=== PATIENT | female | born 1965 | race Caucasian/White ===

== ENCOUNTER 2020-03-14 15:37 | Inpatient (IN) | payer OTHER ==
--- NOTE | 2020-03-14 15:48 | PDOC ---
History of Present Illness - General Chief Complaint: Blood Pressure Problem Stated Complaint: LOW BP Time Seen by Provider: 03/14/20 15:48 - History of Present Illness Initial Comments: 54 YOF h/o lymphoma, ESRD (on dialysis, T/T/S), pemphigus vulgaris, presents from care home for low BP. Per patient, she was scheduled for dialysis today, her bp was measured to 60s, repeated multiple times, unable to go to dialysis. Sent to ER for eval of low bp. Reports some recent bouts of diarrhea and possible fever yesterday. Denies confusion, new blurry vision, dizziness, palpitations, nausea, vomiting, chills, night sweats, blood in stool, blood in urine. Additionally mentions some hemorrhoids which are particularly painful/ distressful, have been occurring for past 2 weeks, unable to find comfortable positioning in bed, asking for relief of any kind. Constitutional: No Weight Change, + Fever, No Chills, No Night Sweats, No Fatigue, No Malaise ENT/Mouth: No Hearing Changes, No Ear Pain, No Nasal Congestion, No Sinus Pain, No Hoarseness, No sore throat, No Rhinorrhea, No Swallowing Difficulty Eyes: No Eye Pain, No Swelling, No Redness, No Foreign Body, No Discharge, No Vision Changes Cardiovascular: No Chest Pain, No SOB, No PND, No Dyspnea on Exertion, No Orthopnea, No Claudication, No Edema, No Palpitations Respiratory: No Cough, No Sputum, No Wheezing, No Smoke Exposure, No Dyspnea Gastrointestinal: No Nausea, No Vomiting, + Diarrhea, No Constipation, + Rectal Pain, No Heartburn, No Anorexia, No Dysphagia, No Hematochezia, No Melena, No Flatulence, No Jaundice Genitourinary: No Dysmenorrhea, No DUB, No Dyspareunia, No Dysuria, No Urinary Frequency, No Hematuria, No Urinary Incontinence, No Urgency, No Flank Pain, No Urinary Flow Changes, No Hesitancy Musculoskeletal: No Arthralgias, No Myalgias, No Joint Swelling, No Joint Stiffness, No Back Pain, No Neck Pain, No Injury History Skin: No Skin Lesions, No Pruritis, No Hair Changes, No Breast/Skin Changes, No Nipple Discharge Neuro: No Weakness, No Numbness, No Paresthesias, No Loss of Consciousness, No Syncope, No Dizziness, No Headache, No Coordination Changes, No Recent Falls Psych: No Anxiety/Panic, No Depression, No Insomnia, No Personality Changes, No Delusions, No Rumination, No SI/HI/AH/VH, No Social Issues, No Memory Changes, No Violence/Abuse Hx., No Eating Concerns Heme/Lymph: No Bruising, No Bleeding, No Transfusions History, No Lymphadenopathy Endocrine: No Polyuria, No Polydipsia, No Temperature Intolerance Past History - Medical History Allergies/Adverse Reactions: Allergies Allergy/AdvReac Type Severity Reaction Status Date / Time midodrine Allergy Verified 03/14/20 15:42 penicillamine Allergy Verified 03/14/20 15:42 piperacillin [From Zosyn] Allergy Verified 03/14/20 15:42 tazobactam [From Zosyn] Allergy Verified 03/14/20 15:42 Home Medications: Ambulatory Orders Acetaminophen [Tylenol] 650 mg PO QID 03/14/20 Diphenhydramine HCl 25 mg PO DAILY 03/14/20 Ergocalciferol (Vitamin D2) [Drisdol] 1,250 mcg PO WEEKLY 03/14/20 Famotidine 10 mg PO DAILY 03/14/20 Ferric Citrate [Auryxia] 210 mg PO TID 03/14/20 Gabapentin [Neurontin] 300 mg PO DAILY 03/14/20 Heparin - 5,000 unit SQ ONCE 03/14/20 Insulin Glargine,Hum.rec.anlog [Lantus Solostar] 10 unit SQ HS 03/14/20 Lidocaine 2% Viscous Oral [Xylocaine 2% Viscous Oral -] 20 ml PO Q4H 03/14/20 Melatonin 5 mg PO HS 03/14/20 Sevelamer Carbonate [Renvela Powder Packet -] 0.8 gm PO TID 03/14/20 Silver Sulfadiazine 1% Top Cr [Silvadene -] 1 applic TP BID 03/14/20 COPD: No Diabetes: Yes Dialysis: Yes (--[facility]) Hypercholesterolemia: Yes - Immunization History Immunization Up to Date: Yes - Psycho-Social/Smoking History Smoking History: Never smoked - Substance Abuse Hx (Audit-C & DAST Scrn) How often the patient has a drink containing alcohol: Never Score: In Men: 4 or > Positive; In Women: 3 or > Positive: 0 Screen Result (Pos requires Nsg. Audit-10AR): Negative In the last yr the pt used illegal drug/Rx for NonMed reason: No Score: Yes response is considered Positive: 0 Screen Result (Positive result requires Nsg. DAST-10): Negative *Physical Exam - Vital Signs Last Vital Signs Temp Pulse Resp BP Pulse Ox 98.2 F 93 H 20 101/66 99 03/14/20 15:42 03/14/20 15:42 03/14/20 15:42 03/14/20 15:42 03/14/20 15:42 ED Treatment Course - LABORATORY CBC & Chemistry Diagram: 03/15/20 05:46 03/15/20 05:46 Medical Decision Making - Medical Decision Making 54 YOF w. hypotension concern for sepsis - BP intermittently between 80s and low 100s - sepsis work up - Patients ECG shows normal sinus rythm, UA revels 3+ leukocyte esterase - patient signed out to night time Discharge - Discharge Information Problems reviewed: Yes Clinical Impression/Diagnosis: ESRD (end stage renal disease) on dialysis UTI (urinary tract infection) Qualifiers: Urinary tract infection type: acute cystitis Hematuria presence: with hematuria Qualified Code(s): N30.01 - Acute cystitis with hematuria Hypotension Qualifiers: Hypotension type: unspecified hypotension type Qualified Code(s): I95.9 - Hypotension, unspecified - Follow up/Referral - Patient Discharge Instructions - Post Discharge Activity
--- OUTSIDE RECORDS SUMMARY | 2020-03-14 16:13 | XMS ---
:1965 Author Organization [facility]IO Care Team Providers Name Role Phone Jessica BENAVIDES, Physician Bonifacio Valdovinos Unavailable Unavailable Luis ERICKSON, Physician Katherine Sheikh Unavailable Unavailkierra Booker Unavailable Unavailable Mayen Unavailable [email or web address] Mayen Unavailable [email or web address] Mayen Unavailable [email or web address] Mayen [facility]available [email or web address] Mayen Unavailable [email or web address] Mayen Unavailable [email or web address] Mayen Unavailable [email or web address] Mayen Unavailable [email or web address] Samuel Unavailable Unavailable Stefano Garcia Unavailable Unavailable Jose Martin BENAVIDES, Physician Unavailable Unavailable MD Dhaval Unavailable Unavailable MD Dhaval Unavailable Unavailable MD Dhaval Unavailable Unavailable MD Dhaval Unavailable Unavailable MD Dhaval Unavailable Unavailable MD Dhaval Unavailable Unavailable MD Dhaval Unavailable Unavailable MD Dhaval Unavailable Unavailable MD Dhaval Unavailable Unavailable MD Dhaval Unavailable Unavailable MD Dhaval Unavailable Unavailable MD Dhaval Unavailable Unavailable MD Dhaval Unavailable Unavailable MD Dhaval Unavailable Unavailable Menges, A Unavailable Unavailable Senisi, J Unavailable Unavailable MD SMILEY Unavailable Unavailable MD SMILEY Unavailable Unavailable MD SMILEY Unavailable Unavailable MD SMILEY Unavailable Unavailable MD SMILEY Unavailable Unavailable MD SMILEY Unavailable Unavailable MD SMILEY Unavailable Unavailable MD SMILEY Unavailable Unavailable MD SMILEY Unavailable Unavailable MD SMILEY Unavailable Unavailable MD SMILEY Unavailable Unavailable MD SMILEY Unavailable Unavailable MD SMILEY Unavailable Unavailable MD SMILEY Unavailable Unavailable MD SMILEY Unavailable Unavailable Jesus Unavailable Unavailable MD Silviano Unavailable Unavailable MD Silviano Unavailable Unavailable MD Silviano Unavailable Unavailable MD Silviano Unavailable Unavailable MD Silviano Unavailable Unavailable MD Silviano Unavailable Unavailable MD Silviano Unavailable Unavailable MD Silviano Unavailable Unavailable MD Silviano Unavailable Unavailable MD Silviano Unavailable Unavailable MD Silviano Unavailable Unavailable MD Silviano Unavailable Unavailable MD Silviano Unavailable Unavailable MD Silviano Unavailable Unavailable MD Silviano Unavailable Unavailable MD Silviano Unavailable Unavailable MD Silviano Unavailable Unavailable MD Silviano Unavailable Unavailable MD Silviano Unavailable Unavailable MD Silviano Unavailable Unavailable MD Silviano Unavailable Unavailable MD Silviano Unavailable Unavailable MD Silviano Unavailable Unavailable ROBERTO, SHI Unavailable Unavailable Slifkin Unavailable Unavailable MD Danielle Unavailable Unavailable MD Danielle Unavailable Unavailable MD Danielle Unavailable Unavailable Bhora Unavailable Unavailable Marija BENAVIDES, Physician E Unavailable Unavailable Renee BENAVIDES, Physician M. Unavailable Unavailable Gabi BENAVIDES, Physician Unavailable Unavailable Alvaro BENAVIDES, Physician Unavailable Unavailable Nalini BENAVIDES, Physician Unavailable Unavailable DARRYL MASTERSON Unavailable Unavailable Haleem Unavailable Unavailable Nadeem Unavailable Unavailable Yenifer BENAVIDES, Physician M Unavailable Unavailable Albert BENAVIDES Unavailable Unavailable RAJPUT, P MD Unavailable Unavailable RAJPUT, P MD Unavailable Unavailable RAJPUT, P MD Unavailable Unavailable RAJPUT, P MD Unavailable Unavailable RAJPUT, P MD Unavailable Unavailable RAJPUT, P MD Unavailable Unavailable RAJPUT, P MD Unavailable Unavailable RAJPUT, P MD Unavailable Unavailable RAJPUT, P MD Unavailable Unavailable RAJPUT, P MD Unavailable Unavailable RAJPUT, P MD Unavailable Unavailable RAJPUT, P MD Unavailable Unavailable RAJPUT, P MD Unavailable Unavailable RAJPUT, P MD Unavailable Unavailable RAJPUT, P MD Unavailable Unavailable RAJPUT, P MD Unavailable Unavailable RAJPUT, P MD Unavailable Unavailable RAJPUT, P MD Unavailable Unavailable Belinskaya Unavailable Unavailable Uche Durant MD Unavailable Unavailable DHUPARMD Unavailable Unavailable DHUPAR, MD Unavailable Unavailable DHUPSTEFFEN, MD Unavailable Unavailable DHUPAR, MD Unavailable Unavailable DHALAN, MD Unavailable Unavailable DHALAN MD Unavailable Unavailable DHALAN MD Unavailable Unavailable DHALAN MD Unavailable Unavailable DHALAN MD Unavailable Unavailable DHALAN MD Unavailable Unavailable DHALAN MD Unavailable Unavailable DHALAN MD Unavailable Unavailable DHALAN MD Unavailable Unavailable HALEY MD Unavailable Unavailable HALEY MD Unavailable Unavailable HALEY MD Unavailable Unavailable DHALAN MD Unavailable Unavailable DHUPSTEFFEN, MD Unavailable Unavailable DHUPSTEFFEN MD Unavailable Unavailable Amadeo Soria MD Unavailable Unavailable Tete MBSHUBHAM, Physician Unavailable Unavailable Tylor BENAVIDES, Physician V Unavailable Unavailable Purvis Unavailable Unavailable EDGAR, DAMIEN-IN Unavailable Unavailable ER Unavailable Unavailable Nadeem Verma MD, ABrian Unavailable Unavailable MD Herman Unavailable Unavailable MD Herman Unavailable Unavailable Amarteifio MD, O. Unavailable Unavailable Tristin BENAVIDES, Physician R. Unavailable Unavailable Chidi EPPS, Physician M Unavailable Unavailable Lawrence Sandoval, Physician Y Unavailable Unavailable Stefano Arriaza MD Unavailable Unavailable Ham Unavailable Unavailable EMERGENCY SERVICE, X Unavailable Unavailable TRISHA PAVON Unavailable Unavailable Ham BENAVIDES, P. Unavailable Unavailable Tack DO, A. Unavailable Unavailable Ritter, D MD Unavailable Unavailable Ritter, D MD Unavailable Unavailable Ritter, D MD Unavailable Unavailable Ritter, D MD Unavailable Unavailable Ritter, D MD Unavailable Unavailable Ritter, D MD Unavailable Unavailable Ritter, D MD Unavailable Unavailable Ritter, D MD Unavailable Unavailable Ritter, D MD Unavailable Unavailable Ritter, D MD Unavailable Unavailable Ritter, D MD Unavailable Unavailable Ritter, D MD Unavailable Unavailable Ritter, D MD Unavailable Unavailable Ritter, D MD Unavailable Unavailable Ritter, D MD Unavailable Unavailable Ritter, D MD Unavailable Unavailable Ritter, D MD Unavailable Unavailable Ritter, D MD Unavailable Unavailable Ritter, D MD Unavailable Unavailable Ritter, D MD Unavailable Unavailable Ritter, D MD Unavailable Unavailable Ritter, D MD Unavailable Unavailable Re-disclosure Warning The records that you are about to access may contain information from federally- assisted alcohol or drug abuse programs. If such information is present, then the following federally mandated warning applies: This information has been disclosed to you from records protected by federal confidentiality rules (42 CFR part 2). The federal rules prohibit you from making any further disclosure of this information unless further disclosure is expressly permitted by the written consent of the person to whom it pertains or as otherwise permitted by 42 CFR part 2. A general authorization for the release of medical or other information is NOT sufficient for this purpose. The Federal rules restrict any use of the information to criminally investigate or prosecute any alcohol or drug abuse patient.The records that you are about to access may contain highly sensitive health information, the redisclosure of which is protected by Article 27-F of the [facility] Public Health law. If you continue you may haveaccess to information: Regarding HIV / AIDS; Provided by facilities licensed or operated by the [facility] Office of Mental Health; or Provided by the [facility] Office for People With Developmental Disabilities. If such information is present, then the following [facility] mandated warning applies: This information has been disclosed to you from confidential records which are protected by state law. State law prohibits you from making any further disclosure of this information without the specific written consent of the person to whom it pertains, or as otherwise permitted by law. Any unauthorized further disclosure in violation of state law may result in a fine or long term sentence or both. A general authorization for the release of medical or other information is NOT sufficient authorization for further disclosure. Allergies and Adverse Reactions Type Description Substance Reaction Status Data Source(s ) Drug allergy Zosyn in dextrose Zosyn in dextrose SIGMACARE (iso-osm) (iso-osm) ([facility]) Drug allergy penicillamine penicillamine SIGMAC ARE ([facility]) Drug allergy midodrine midodrine SIGMACARE ([facility]) Drug allergy piperacillin piperacillin Anaphylaxis [facility] Drug allergy tazobactam tazobactam Anaphylaxis [facility] Drug allergy midodrine midodrine Rash [facility] Drug allergy Penicillins Penicillins Unknown [facility] Drug allergy No Known Drug No Known Drug [facility] miesha Allergies Allergies [facility] Drug allergy No Known Allergies No Known Allergies [facility] Drug allergy Zosyn [facility]yn [facility] Drug allergy penicillins penicillins anaphylaxis to [facility] No Known Allergies No Known Allergies [facility] Drug allergy midodrine midodrine sunburned [place] feeling from [facility] head to toe [facility] Drug allergy Zosyn Zosyn [facility] Drug allergy penicillins penicillins [facility] No Known Allergies No Known Allergies [facility] Primary Care Drug allergy midodrine midodrine rash sunburned [facility] Primary head to toe Care 1 MIDODRINE MIDODRINE NEXTGEN ([facility]) Food allergy No Known Food No Known Food [facility] miesha Allergies Allergies [facility] Encounters Encounter Providers Location Date Indications Data Source(s ) Inpatient Attender: 6 WEST-5 EAST 02/28/2020 SIGMABETH Mayen 04:00:00 PM ([facility] EDT [facility]) Patient admitted. Inpatient Attender: LIBRADO, 02/05/2020 PEMPHIGUS [facility] OLIVERAttender: ROBERTO, 11:58:00 PM EDT [facility] ERICAttender: ZELALEM, 02/28/2020 Corpor ation RONALDAttender: EDGAR, 03:00:00 PM EDT DAMIEN-INAdmitter: DAMIEN HERNÁNDEZ-INReferrer: BEVERLY HERNÁNDEZIN PEMPHIGUS VULGARIS Patient admitted. Emergency Attender: EDGAR, 02/05/2020 08:48:00 TRANSFER [facility] DAMIEN-INAttender: EMERGENCY PM EDT Health Care SERVICE, XAdmitter: [facility] EMERGENCY SERVICE, X TRANSFER Emergency Attender: Shayy Price 02/05/2020 12:34:51 PM [facility] MDAttender: EDT - 02/05/2020 Juliette Quinn ERAdmitter: Shayy Price 07:09:00 PM T [facility] MD Patient discharged. Outpatient Attender: Gaby 12/19/2019 09:30:00 AM [facility] EDT - 12/19/2019 11:59:00 Primary Care PM EDT Patient discharged. Outpatient Attender: Eugene 08/22/2019 02:00:00 PM [facility] ([facility] SenisiReferrer: Eugene [facility] Outpatient Attender: Vahe Tejada 08/15/2019 02:47:00 PM [facility]) Outpatient Attender: Eugene Louis 08/09/2019 11:35:00 AM [facility]) Outpatient Attender: Eugene 08/08/2019 11:00:00 AM [facility] ([facility] SenisiReferrer: Eugene Agarwal [facility]) S Attender: Physician Valdovinos 06/03/2019 11:27:00 AM [facility] Bonifacio Lopez MDAdmitter: BRAD Qunin Physician Bonifacio Lopez MD [facility] Admission cancelled. Disregard status an d admitted date. Outpatient Attender: Physician Bonifacio 06/03/2019 10:03:00 AM [facility] Bonifacio Lopez MDAdmitter: EST - 06/03/2019 Nathalia Brothers Physician Bonifacio Lopez 11:59:00 PM [facility] MD Patient discharged. Outpatient Attender: Physician Bonifacio 05/06/2019 10:38:47 AM [facility] Bonifaciodeborah Lopez MDAdmitter: EST - 05/06/2019 Nathalia Brothers Physician Bonifacio Lopez 11:59:00 PM [facility] MD Patient discharged. Inpatient Attender: Physician Kamron Epstein 04/17/2019 12 :17:00 [facility] MBBSAttender: ERAttender: Santos PM EDT - 1 06/27/2018 Kalaheo Kai Deluna MDAdmitter: Physician 01:15:00 PM [facility] MBBSConsultant: Darien Villanueva MDConsultant: YVONNE RAJPUT MDConsultant: GITA DE LEON MDConsultant: JABARI REIS MDConsultant: Gustavo Puentes MDConsultant: Carol Ann Sutton MDConsultant: Haile Santos MDConsultant: Jackie AbreueConsultant: Vipul BerenzonConsultant: Vipul Berenzon MDConsultant: Halima OrrilloConsultant: Physician Laith Duran MDConsultant: Physician Cuong Crow MDConsultant: Nato GuevaraConsultant: Physician Luis Gayle MDConsultant: Physician Bonifacio Lopez MD Patient discharged. Outpatient Attender: Physician Bonifacio 04/16/2019 09:29:58 AM [facility] Bonifaciodeborah Lopez MDAdmitter: EDT - 04/16/2019 Kalaheo Brothers Physician Bonifacio Lopez 11:59:00 PM [facility] MD Patient discharged. Inpatient Attender: Physician Nghia John 04/04/2019 02:2 5:00 [facility] MDAttender: Danie PM EDT - 04/07/2019 Nathaliaserenity PhamAttender: Kamron 04:13:00 PM [facility] Carleen Mendoza: ERAdmitter: Physician Nghia John MDConsultant: Wilton Shore MDConsultant: JABARI REIS MDConsultant: Physician Bonifacio Lopez MDConsultant: Physician Oziel Dutton MDConsultant: Physician Nghia John MDConsultant: Physician Luis Gayle MDConsultant: Physician Manuelito Murillo DOConsultant: Stephon Story DOConsultant: Nato ColoradooraConsultant: Halima Jimenez-CutilloConsultant: Danie Finneyya Patient discharged. Inpatient Attender: Physician Katherine 03/25/2019 09:22:00 A M [facility] Luis FRIENDBSAttender: Maria Guadalupe [facility] - 03/28/2019 Nathalia Salmeron: 04:00:00 PM [facility] ERAdmitter: Physician Katherine FRIENDBSConsultant: YVONNE RAJPUT MDConsultant: Wilton Shore MDConsultant: JABARI REIS MDConsultant: Physician Bonifacio Lopez MDConsultant: Shilo Arriaza MDConsultant: Physician Gaby Philippe MDConsultant: Physician Luis Gayle MD Patient discharged. Outpatient Attender: Wilton Shore 03/21/2019 08:49:52 AM [facility] MDAdmitter: Wilton Shore T - 03/21/2019 Nathalia Quinn MD 11:59:00 PM [facility] Patient discharged. Outpatient Attender: Physician 02/11/2019 10:42:00 AM [facility] [address] T - 02/28/2019 Juliette Quinn MDAdmitter: Physician 11:59:00 PM [facility] [address] MD Patient discharged. Outpatient Attender: Michaelle 01/24/2019 01:19:00 PM [facility] ([facility]) Outpatient Attender: Michaelle 01/18/2019 02:30:00 PM [facility] ([facility] SamuelReferrer: ED Medical [facility]) Outpatient Attender: Viviana 01/18/2019 12:00:00 AM [facility] ([facility] AlasioReferrer: EDT Medical - [facility] Michaelle [facility]) Inpatient Attender: Physician 10/19/2018 12:08:00 PM [facility] Suellen Bravo EDT - 10/22/2018 Juliette Quinn M.D.Attender: 03:00:00 PM EDT [facility] Physician Katherine FRIENDBSAttender: Manuelito Soria MDAttender: ERAdmitter: Physician Katherine ERICKSONConsultant: Gustavo Puentes MDConsultant: Physician Cuong Crow MDConsultant: Jackie AbreueConsultant: Rivera CaspermConsultant: Physician Rivera Ashley MDConsultant: Physician Ricky Snider MD Outpatient Attender: Physician 10/09/2018 09:41:[address] [facility] [facility] - 10/10/2018 Juliette Quinn MDAdmitter: Physician 09:32:00 PM EDT [facility] Yenifer MDConsultant: Yifan Silver Jr., MDConsultant: Yifan Silver Emergency Attender: Manuelito 10/08/2018 10:20:00 AM [facility] Yang MDAttender: EDT - 10/08/2018 Nathalia Quinn ERAdmitter: Manuelito 08:22:00 PM [facility] Yang MDConsultant: Physician Jadon Street MD Outpatient Attender: Physician TENISHA 07/26/2018 03:53:00 PM [facility] Cuong Crow EST - 07/26/2018 Bobo Quinn MDAdmitter: Physician 11:59:59 PM [facility] Cuong Crow MD Outpatient Attender: Halima 03/06/2018 12:26:54 PM [facility] - 03/06/2018 Nathalia Quinn er: Halima 11:59:59 PM ED[facility] Out[facility] Attender: Eugene 06/03/2015 03:00:00 PM [facility] ([facility] SenisiReferrer: EST Medical [facility] Immunizations Vaccine Date Status Description Data Source(s) Pneumococcal conjugate 03/28/2019 completed pneumococcal [facility] - PCV 13 04:00:00 PM 13-valent conjugate [facility] vaccine [facility] influenza virus 05/12/2014 completed influenza virus [facility] - vaccine, inactivated 12:00:00 AM vaccine, inactivated 1 [facility] Result Comment: Unknown Unit of Measure: 0.5 influenza virus 03/12/2013 12:00:00 completed influenza virus [facility] - vaccine, inactivated AM EDT vaccine, inactivated [facility] tetanus/diphth/pertu 01/29/2013 12:00:00 completed tetanus/dipht h/pertu [facility] - ss (Tdap) adult/adol AM EDT ss (Tdap) [facility] adult/adol4 [facility] [place] Result Comment: Unknown Unit of Measure: cc haemophilus b 01/29/2013 12:00:00 completed haemophilus b [facility] - conjugate (PRP-T) AM EDT conjugate (PRP-T) [facility] vaccine vaccine3 [facility] [place] Result Comment: Unknown Unit of Measure: cc tetanus/diphth/pertuss 12/04/2012 completed tetanus/diphth/per tuss [place] (Tdap) adult/adol 12:00:00 AM (Tdap) adult/adol5 Heal th - EDT [facility] Result Comment: Unknown Unit of Measure: pneumococcal 05/08/2012 completed pneumococcal [facility] 23-polyvalent vaccine 12:00:00 AM EST 23-polyvalent va ccine [facility] influenza virus 05/08/2012 completed influenza virus [facility] vaccine, inactivated 12:00:00 AM EST vaccine, inactiva ted2 - [facility] Result Comment: Unknown Unit of Measure: Medications Medication Brand Start Product Dose Route Administrative Pharmacy [facility] Indications Reaction Description Data Name Date Form Instructions Instructions Source(s) Silvadene silver 03/05/ Silvaden e 1 SIGMACARE (silver sulfad 2020 ed % topical (Rege ncy sulfadiazin iazine 08:30: cream Ext ended e) 1 % 10 53 AM Care topical MG/ML EDT Center) cream Topica l Cream [Still dene] Silvadene silver 03/05/ complet Silvaden e 1 SIGMACARE (silver sulfad 2020 ed % topical (Rege ncy sulfadiazin iazine 08:28: cream Ext ended e) 1 % 10 44 AM Care topical MG/ML EDT Center) cream Topica l Cream [Still dene] Silvadene silver 03/05/ complet Silvaden e 1 SIGMACARE (silver sulfad 2020 ed % topical (Rege ncy sulfadiazin iazine 08:27: cream Ext ended e) 1 % 10 08 AM Care topical MG/ML EDT Center) cream Topica l Cream [Still dene] Silvadene silver 03/05/ complet Silvaden e 1 SIGMACARE (silver sulfad 2020 ed % topical (Rege ncy sulfadiazin iazine 08:25: cream Ext ended e) 1 % 10 29 AM Care topical MG/ML EDT Center) cream Topica l Cream [Still dene] Silvadene silver 03/05/ complet Silvaden e 1 SIGMACARE (silver sulfad 2020 ed % topical (Rege ncy sulfadiazin iazine 08:22: cream Ext ended e) 1 % 10 59 AM Care topical MG/ML EDT Center) cream Topica l Cream [Still dene] Silvadene silver complet Silvaden e 1 SIGMACARE (silver sulfad 2020 ed % topical (Rege ncy sulfadiazin iazine 08:20: cream Ext ended e) 1 % 10 47 AM Care topical MG/ML EDT Center) cream Topica l Cream [Still dene] Silvadene silver 03/05/ complet Silvaden e 1 SIGMACARE (silver sulfad 2020 ed % topical (Rege ncy sulfadiazin iazine 08:09: cream Ext ended e) 1 % 10 51 AM Care topical MG/ML EDT Center) cream Topica l Cream [Still dene] Miralax POLYET 03/04/ complet Miralax 17 SIGMACARE (polyethyle HYLENE 2020 ed gram/dose ( [facility] ne glycol GLYCOL 09:36: oral powder Extended 3350) 17 3350 00 AM Care gram/dose 91772 EDT Center) oral powder MG Powder for Oral Soluti on [[place] ax] melatonin 5 Melato 03/04/ complet melato trisha 5 SIGMACARE mg capsule trisha 5 2020 ed mg capsule (R egency MG 09:04: Extended Oral 25 AM Care Capsul EDT Center) e Neurontin gabape Neuronti n SIGMACARE (gabapentin ntin 2020 ed 300 mg (Regen cy ) 300 mg 300 MG 06:34: capsule Exte nded capsule Oral 13 AM Care Capsul EDT Center) e [Neuro ntin] prednisone Predni prednis one 5 SIGMACARE 5 mg tablet sone 5 2019 ed mg tablet ( [facility] MG 03:00: Extended Oral 00 PM Care Tablet EDT Center) Preparation 815967 Prepar ation SIGMACARE H 27822 2019 ed H 0.25 %-14 (Regenc y (phenyleph- 07:29: %-74.9 % Ex tended min 17 AM ointment Care oil-petrola EDT Center) waqar) 0.25 %-14 %-74.9 % ointment Mepilex 525563 Mepilex 4" X SIGMACARE (foam 82740 2019 ed 4" bandage (Regenc y bandage) 4" 03:24: Extend ed X 4" 54 PM Care bandage EDT Center) Mepilex 110232 Mepilex 4" X SIGMACARE (foam 80941 2019 ed 4" bandage (Regenc y bandage) 4" 03:21: Extend ed X 4" 59 PM Care bandage EDT Center) Mepilex 218361 Mepilex 4" X SIGMACARE (foam 78515 2019 ed 4" bandage (Reg[facility] y bandage) 4" 03:20: Extend ed X 4" 39 PM Care bandage EDT Center) Mepilex 792272 complet Mepilex 4" X SIGMACARE (foam 52832 2020 ed 4" bandage (Regenc y bandage) 4" 12:37: Extend ed X 4" 09 PM Care bandage EDT Center) Mepilex 750881 Mepilex 4" X SIGMACARE (foam 95129 2020 ed 4" bandage (Regenc y bandage) 4" 12:30: Extend ed X 4" 39 PM Care bandage EDT Center) Mepilex 973737 complet Mepilex 4" X SIGMACARE (foam 95559 2020 ed 4" bandage (Regenc y bandage) 4" 11:53: Extend ed X 4" 52 AM Care bandage EDT Center) Auryxia 579710 Auryxia 21 0 SIGMACARE (ferric 33281 2019 ed mg iron ([facility] citrate) 09:26: tablet Extende d 210 mg iron 17 AM Care tablet EDT Center) Drisdol 526150 Drisdol SI GMACARE (ergocalcif 03297 2019 ed 1,250 mcg (R egency polina 08:33: (50,000 Extended (vitamin 36 AM unit) Care d2)) 1,250 EDT capsule Center ) mcg (50,000 unit) capsule Lidocaine 871116 Lidocain e SIGMACARE Viscous 31895 2019 ed Viscous 2 % (Reg ency (lidocaine 08:31: mucosal Exte nded hcl) 2 % 12 AM solution Care mucosal EDT Center) solution sevelamer sevela sevelame r SIGMACARE carbonate bala 2019 ed carbonate (Rege ncy 0.8 gram carbon 08:31: 0.8 gram Ext ended oral powder ate 12 AM oral powder Care packet 800 MG EDT packet Center) Powder for Oral Suspen sol [Renve la] prednisone Predni prednis one SIGMACARE 10 mg sone 2019 ed 10 mg tablet (Regen cy tablet 10 MG 08:31: Extended Oral 12 AM Care Tablet EDT Center) melatonin 3 Melato melato trisha 3 SIGMACARE mg tablet trisha 3 2019 ed mg tablet (Reg ency MG 08:31: Extended Oral 12 AM Care Tablet EDT Center) heparin hepari heparin SI GMACARE (porcine) n 2019 ed (porcine) (Rege ncy 5,000 sodium 08:31: 5,000 Extended unit/mL , 11 AM unit/mL Care injection porcin EDT injection Efren ter) solution e 5000 solution UNT/ML Inject able Soluti on Lantus 3 ML Lantus SIGMAC ARE Solostar Insuli 2019 ed Solostar (Rege ncy U-100 n 08:23: U-100 Extended Insulin Glargi 38 AM Insulin 100 Ca re (insulin ne 100 EDT unit/mL ([address]) glargine) UNT/ML mL) 100 unit/mL Pen subcutaneous (3 mL) Inject pen subcutaneou or s pen [Lantu s] Lactobacill [id number] Lactob acillu SIGMACARE [id number] 2019 ed s ([facility] acidoph-L.b 08:23: acidoph-L.b u Extended ulgaricus 1 38 AM lgaricus 1 C are million EDT million cell Cent er) cell tablet tablet famotidine Famoti famotid ine SIGMACARE 10 mg dine 2019 ed 10 mg tablet (Regen cy tablet 10 MG 08:22: Extended Oral 22 AM Care Tablet EDT Center) calcitriol Calcit calcitr iol SIGMACARE 0.25 mcg riol 2019 ed 0.25 mcg (Regenc y capsule 0.0002 08:22: capsule Exten ded 5 MG 21 AM Care Oral EDT Center) Capsul e diphenhydra Diphen diphen hydram SIGMACARE mine 25 mg hydram 2019 ed ine 25 mg (R egency capsule ine 08:22: capsule Extende d Hydroc 21 AM Care hlorid EDT Center) e 25 MG Oral Capsul e acetaminoph Acetam acetam inophe SIGMACARE en 325 mg inophe 2019 ed n 325 mg (Reg ency tablet n 325 08:18: tablet Extended MG 30 AM Care Oral EDT Center) Tablet Dilaudid Dilaud 0.5 UNK active Dilaudid [facility] ([facility] (Hy 2020 mg (Hydromorpho r Cou nty 11:21: ne) Health 06 PM Injection Care EDT 0.5 mg IVPB Corporat io n Medication administered onsite Dilaudid Dilaudid 02/05/2020 0.5 UNK active Dil audid [place] (Hy (Hy 10:21:10 PM mg (Hydromorphon e) County EDT Injection 0.5 mg [facility] Care [employer] Medication administered onsite 0.9% NaCl 0.9% NaCl 02/05/2020 1000 mL UNK active 0.9% [place] IV IV 10:21:10 PM EDT NaCl IV C ounty Health 1000 mL Care [facility] Medication administered onsite Methotrexate methotrexate 02/05/2020 2.5 Oral [place]uv[place] 2.5 MG Oral 2.5 mg oral 04:32:00 PM mg 2.5 mg, = 1 tab, Oral, Monday Health - Tablet tablet EDT [place] methotrexate Brother s 2.5 mg oral Medical tablet [place] Furosemide 80 FUROSEMIDE take 1 RP NEXTGEN MG Oral Tablet tablet (Ca remoun 80 mg 80 mg by oral t Med ical route - Mt every [place] [facility]) This may be an active medication. No end date is available. Start date above may not reflect actual date the medication was s tarted. carvedilol 12.5 MG CARVEDILOL take 1 tablet by RP NEXTGEN ([facility] Oral Tablet 12.5 mg oral route Medical - Or [place] 12.5 mg every day with [facility]) food This may be an active medication. No end date is available. Start date above may not reflect actual date the medication was s tarted. gabapentin 300 MG NEURONTIN take 2 capsule RP NEXTGEN ([facility] Oral Capsule by oral route [facility] [Neurontin[facility] 300 mg every evening as [facility]) 300 mg needed This may be an active medication. No end date is available. Start date above may not reflect actual date the medication was s tarted. 10 billion cell 10 1 capsule by mouth RP NEXTGEN ([facility] billion cell every day [place] dical - [facility]) This may be an active medication. No end date is available. Start date above may not reflect actual date the medication was s tarted. Albuterol albuterol 2.5 04/17/2019 5.0 Nebulized Nuvance 0.83 MG/ML mg/3 mL 02:40:00 PM mg inhalation 5 mg, = 6 mL, NEB, q6hr (specified start), as needed for wheezing, PRN Health - Inhalant (0.083%) EDT [place] Solution inhalation Broth [facility] albuterol 2.5 solution Ky dical mg/3 mL Center (0.083%) inhalation solution Ventolin HFA [id number] 04/17/2019 2.0 Inhalation Nuvance 90 mcg/inh 02:37:00 PM = 2 puf f(s), INH, QID, as needed for wheezing Health - inhalation EDT [place] aerosol [facility] Albuterol albuterol 2.5 04/07/2019 Daniella 5.0 Inhalation Nuvance 0.83 MG/ML mg/3 mL 12:40:00 PM uti mg 5 mg, = 6 mL, INH, q6hr, # 60 EA, 0 Refill(s), as needed for wheezing, Pharmacy: [id number], 6 mL INH q6hr,PRN:as needed for wheezing Health - Inhalant (0.083%) EDT on [place] Solution inhalation Broth ers albuterol 2.5 solution Me dical mg/3 mL Center (0.083%) inhalation solution Ventolin HFA [id number] 04/07/2019 Inh 2.0 Inhalation Nuvance 90 mcg/inh 12:40:00 PM yosvany = 2 puff(s), INH, QID, # 1 EA, 1 Refill(s), as needed for wheezing, Pharmacy: [facility] #[id number], 2 puff(s) INH QID,PRN:as needed for wheezing Health - inhalation EDT r [place] aerosol [facility] Augmentin 875 [id number] 03/28/2019 1.0 Oral [place]uvance mg-125 mg 01:47:00 PM amoxicillin (as trihydrate), 1 tab, Oral, q12hr (specified start), X 5 day(s), # 10 tab, 0 Refill(s), Pharmacy: [facility] #[id number], 1 tab Oral q12hr (specified start),x5 day(s) Health - oral tablet EDT [facility] 3 ML Victoza 18 03/25/2019 0.6 Subcutaneous [place] liraglutide 6 mg/3 mL 01:20:00 PM mg 0.6 mg, Subcutaneous, Daily, Has not started yet Health - MG/ML Pen subcutaneous EDT [facility] Medical mg/3 mL Center subcutaneous solution albuterol [id number] 03/25/2019 2.0 Inhalation [place] Inhaler 01:19:00 PM 2 puff(s), INH, QID, as needed for wheezing, PRN Health - EDT [facility] Levofloxacin Levaquin 750 10/22/2018 750. Oral Nuvance 750 MG Oral mg oral 10:48:00 AM 0 mg 750 mg, = 1 tab, Oral, q24hr (specified start), X 5 day(s), # 5 tab, 0 Refill(s), Pharmacy: [facility] [id number], 1 tab Oral q24hr (specified start),x5 day(s) Health - Tablet tablet EDT [place] Levaquin 750 Brother s mg oral Medical tablet [place] Furosemide 40 Lasix 40 mg 10/22/2018 40.0 Oral Nuvance MG Oral oral tablet 10:48:00 AM mg 40 mg, = 1 tab, Oral, BID, # 60 tab, 0 Refill(s), Pharmacy: [facility] [id number], 1 tab Oral BID,x30 day(s) Health - Tablet Lasix EDT [place] 40 mg oral [facility] albuterol [facility] [id number] 10/22/2018 Aer 2.0 Inhalation Nuvance free 90 10:48:00 AM kristal = 2 puff(s), INH, QID, # 18 gm, 0 Refill(s), as needed for wheezing, Pharmacy: [facility] [id number], 2 puff(s) INH QID,PRN:as needed for wheezing Health - mcg/inh EDT [facility] clonazepam [id number] 10/19/2018 0.5 Oral N uvance 04:10:00 PM mg 0.5 mg, Oral, BID, as needed for anxiety Health - EDT [facility] simvastatin [id number] 10/19/2018 10.0 Oral Nuvance 04:09:00 PM mg 10 mg, Oral, QHS, hasn't started medication yet Health - EDT [facility] Probiotic [id number] 10/19/2018 1.0 Oral Nu adam Formula 04:08:00 PM 1 cap, Ora l, Daily Health - EDT [facility] carvedilol [id number] 10/19/2018 12.5 Oral N uvance 04:06:00 PM mg 12.5 mg, Oral , BID Health - EDT [facility] Simvastatin simvastatin 10/09/2018 10.0 Oral Nuvance 10 MG Oral 10 mg oral 10:48:00 AM mg 10 mg, = 1 tab, Oral, Once a day (at bedtime), # 30 tab, 0 Refill(s) Health - Tablet tablet EDT [place] simvastatin [place] 10 mg oral Medical tablet Center Auryxia 210 [id number] 10/09/2018 630. Oral Nuvance mg oral 10:46:00 AM 0 mg 630 mg, Or al, With meals, 0 Refill(s) Health - tablet EDT [facility] azithromycin [id number] 10/09/2018 1.0 Oral Nuvance 250 mg oral 10:43:00 AM = 1 packet(s), Oral, Daily, # 6 tab, 0 Refill(s), as directed on package labeling Health - tablet EDT [facility] predniSONE 10 [id number] 10/09/2018 10.0 Oral Nuvance mg oral 10:43:00 AM mg 10 mg, = 1 tab, Oral, Daily, # 7 tab, 0 Refill(s) Health - tablet EDT [facility] gabapentin [id number] 03/27/2018 600. Oral N uvance 02:26:00 PM 0 mg 600 mg, Oral, QHS, 0 Refill(s) Health - EDT [facility] MiraLax [id number] 10/11/2017 Ora 17.0 Oral Nuva nce 02:45:00 PM l g 17 gm, = 1 EA , Oral, Daily, 0 Refill(s) Health - EDT [facility] Bio-K+ [id number] 10/11/2017 Cap 2.0 Oral Nuvan ce 02:45:00 PM sul 2 cap, Oral, Daily, 0 Refill(s) Health - EDT e [facility] DuoNeb [id number] 10/11/2017 Daniella 3.0 Nebulized Nuvance 02:45:00 PM uti mL inhalation 3 mL, NEB, QID, 0 Refill(s), as needed for shortness of breath or wheezing, PRN Health - EDT on [facility] felicity n calcium calcium 10/04/20172000 Oral Nuv ance acetate 667 acetate 667 09:56:00 AM .0 2,001 mg, = 3 cap, Oral, With meals Health - MG Oral mg oral EDT mg [place] Capsule capsule [place] calcium Medical acetate 667 Center mg oral capsule carvedilol 25 carvedilol 25 10/04/2017 25.0 Oral Nuvance MG Oral mg oral 09:56:00 AM mg 25 mg, = 1 tab, Oral, BID Health - Tablet tablet EDT [place] carvedilol 25 [facility] Medical tablet [place] calcium calcium 10/04/2017 667. Oral Nuv ance acetate 667 acetate 667 09:56:00 AM 0 mg 667 mg, = 1 cap, Oral, with snacks Health - MG Oral mg oral EDT [place] Capsule capsule [place] calcium Medical acetate 667 Center mg oral capsule mupirocin 2% [id number] 10/04/2017 1.0 Topical [place] topical cream 09:56:00 AM 1 ap p, TOP, TID, apply to left leg Health - EDT [facility] Vitamin B12 [id number] 09/02/2013 Inj 1000 Intramuscular Nuvance 04:48:00 PM ect .0 1,000 mcg, IM , q30day, 0 Refill(s) Health - EDT abl ug [place] e [facility] Famotidine 10 Famotidine co [place] MG Oral [10 mg mp r County Tablet Tablet]: 10 le Health Famotidine MG Oral Q10AM te Care [10 mg d Corporatio Tablet]: 10 n MG Oral Q10AM Prednisone 5 Prednisone [5 co [place] MG Oral mg Tablet]: 5 mp r C ounty Tablet MG Oral DAILY le Heal th Prednisone [5 te Care mg Tablet]: 5 d Corpor atio MG Oral DAILY n gabapentin gabapentin 999 oral co gabapent in [place] MG mp r County le Health te Care d Corporatio n Prednisone 10 Prednisone co [place] MG Oral [10 mg mp r County Tablet Tablet]: 10 le Health Prednisone MG Oral Q10AM te Care [10 mg d Corporatio Tablet]: 10 n MG Oral Q10AM ferric Auryxia co [place] citrate 1000 (Ferric mp r Co unty MG Oral Citrate) [210 le Hea lth Tablet mg iron te Care Auryxia Tablet]: 3 d Corpor atio (Ferric Tablet Oral 3 n Citrate) [210 TIMES A DAY mg iron Tablet]: 3 Tablet Oral 3 TIMES A DAY Insulin Lantus co [facility] Glargine 100 (Insulin mp r C ounty UNT/ML Glargine) le Health Injectable [100 unit/mL te C are Solution Unit]: 10 d Corpor atio Lantus Unit n (Insulin Subcutaneous Glargine) Q10PM [100 unit/mL Unit]: 10 Unit Subcutaneous Q10PM Lidocaine Lidocaine co [facility] heste Hydrochloride Viscous mp r C ounty 20 MG/ML (Lidocaine le Healt h Mucous HCl) [2 % te Care Membrane Cup]: 15 ML d Myles oratio Topical Oral Q4HPRN n Solution PRN Pain Lidocaine Viscous (Lidocaine HCl) [2 % Cup]: 15 ML Oral Q4HPRN PRN Pain Acetaminophen Acetaminophen co [place] 325 MG Oral [325 mg mp r Cou nty Tablet Tablet]: 650 le Healt h Acetaminophen MG Oral te Car e [325 mg Q6HPRN PRN d Corpor atio Tablet]: 650 Pain n MG Oral Q6HPRN PRN Pain Diphenhydrami Diphenhydrami co [facility] ne ne HCl [25 mg mp r Coun ty Hydrochloride Capsule]: 25 le Health 25 MG Oral MG Oral Q10PM te Care Capsule d Corporatio Diphenhydrami n ne HCl [25 mg Capsule]: 25 MG Oral Q10PM sevelamer Sevelamer co [facility] heste carbonate Carbonate mp r Cou nty 26.7 MG/ML [0.8 gram le Heal Oral Packet]: 800 te Care Suspension MG Oral TIDAC d Corporatio Sevelamer n Carbonate [0.8 gram Packet]: 800 MG Oral TIDAC Freeze Dried [id number] co Kev [place] Acidophilus mp r County (Lactobacillu le Health s te Care acidophilus) d Corpora felicity [Capsule]: 1 n Capsule Oral Q10AM Calcitriol Calcitriol co E[place] 0.61232 MG [0.25 mcg mp r Co unty Oral Capsule Capsule]: le He alth Calcitriol 0.25 MCG Oral te Care [0.25 mcg Q10AM d Corporati o Capsule]: n 0.25 MCG Oral Q10AM heparin Heparin co [place] e sodium, (Porcine) mp r Count y porcine 5000 [5,000 le Healt h UNT/ML unit/mL te Care Injectable Vial]: 5000 d Co rporatio Solution Unit n Heparin Subcutaneous (Porcine) 10A-6P [5,000 unit/mL Vial]: 5000 Unit Subcutaneous 10A-6P Melatonin 3 Melatonin [3 co [place] MG Oral mg Tablet]: 3 mp r C ounty Tablet MG Oral Q6PM le Healt h Melatonin [3 te Care mg Tablet]: 3 d Corpor atio MG Oral Q6PM n VITAMIN D2 co [place] e (DRISDOL) mp r County [id number] UNIT le Health (Free Text te Care Medication) d Corporat io [[id number] UNIT n Capsule]: 27084 Unit Oral DIRECTED Insurance Providers Payer name Policy type Policy ID Covered Covered democrat's Policy P / Coverage democrat ID relationship to Goyal Inf ormation type goyal MEDICARE [id number] SP [id number] [id number] AARP 17 [id number] Self [id number] Medicare Part 2 [id number] Self [id number] Medicare Part 18 [id number] Self [id number] A AARP Other [id number] Self [id number] 211 Medicare Part Medicare [id number] Self [id number] Part B Medicare Part Medicare [id number] Self [id number] A Part A UNK UNK UNK UNK [id number] COMM [id number] Self [id number] MCARE [id number] Self [id number] COMM [id number] Self [id number] MCARE [id number] Self [id number] T02 [facility] [place] [place] AARP [id number] [id number] [facility] [place] [facility] [place] [id number] 1 [id number] Part B Par Providers Problems, Conditions, and Diagnoses Code Display Name Description Problem Type Effective Data Sour ce(s) Dates R50.9 Fever, unspecified Fever, unspecified Diagnosis 0 SIGMACARE 12:00:00 AM ([facility]) L13.9 Bullous disorder, Bullous disorder, Diagnosis 03/05/2020 SIGMACARE unspecified unspecified 12:00:00 AM ([facility]) F51.01 Primary insomnia Primary insomnia Diagnosis 03/04/2020 SI GMACARE 12:00:00 AM ([facility]) K64.8 Other hemorrhoids Other hemorrhoids Diagnosis 03/02/2020 SIGMACARE 12:00:00 AM ([facility]) L89.152 Pressure ulcer of Pressure ulcer of Diagnosis 02/29/2020 SIGMACARE sacral region, stage sacral region, 12:00:00 AM ([facility] 2 stage 2 EDT [facility] [place]) S51.802A Unspecified open Unspecified open Diagnosis 02/29/2020 SI GMACARE wound of left wound of left 12:00:00 AM (Regenc y forearm, initial forearm, initial EDT Ex tended Care encounter encounter Center) S21.001A Unspecified open Unspecified open Diagnosis 02/29/2020 SI GMACARE wound of right wound of right 12:00:00 AM (Rege ncy breast, initial breast, initial EDT Exte nded Care encounter encounter Center) D63.8 Anemia in other ANEMIA IN OTHER Diagnosis 02/28/2020 [place] chronic diseases CHRONIC DISEASES 03:00:00 PM [email or web address] classified elsewhere CLASSIFIED EDT Care [facility] E87.5 Hyperkalemia HYPERKALEMIA Diagnosis 02/28/[address] [facility] r 03:00:00 PM [facility] [employer] [facility] [place] [employer] Z87.891 Personal history of PERSONAL HISTORY OF Diagnosis [place] nicotine dependence NICOTINE DEPENDENCE 03:00:0 0 PM [facility] [employer] [facility] [place] [employer] Z89.411 Acquired absence of ACQUIRED ABSENCE OF Diagnosis [place] right great toe RIGHT GREAT TOE 03:00:00 PM Cou [facility] [employer] [facility] [place] [employer] Z89.412 Acquired absence of ACQUIRED ABSENCE OF Diagnosis [place] left great toe LEFT GREAT TOE 03:00:00 PM Count [employer] [facility] [place] [employer] 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 Diagnosis [place] dialysis DIALYSIS 03:00:00 PM [facility] [employer] [place] E11.22 Type 2 diabetes TYPE 2 DIABETES Diagnosis 02/28/2020 [place] mellitus with MELLITUS W DIABETIC 03:00:00 PM [email or web address] diabetic chronic CHRONIC KIDNEY EDT Care kidney disease DISEASE Corporatio n A04.72 Enterocolitis due to ENTEROCOLITIS D/T Diagnosis 02/28/20 20 [place] Clostridium CLOSTRIDIUM 03:00:00 PM [facility] th difficile, not DIFFICILE, NOT SPCF EDT C are specified as [employer] recurrent D61.818 Other pancytopenia OTHER PANCYTOPENIA Diagnosis 0 [place] 03:00:00 PM [facility] [employer] Z94.84 Stem cells STEM CELLS Diagnosis 02/28/2020 [place] transplant status TRANSPLANT STATUS 03:00:00 PM [facility] 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 02/28/2020 [facility] lymphoma, B-CELL LYMPHOMA, 03:00:00 PM [facility] unspecified site UNSPECIFIED SITE EDT Ca re Corporation I12.0 Hypertensive chronic HYP CHR KIDNEY Diagnosis 02/28/2020 [place] kidney disease with DISEASE W STAGE 5 03:00:00 PM [facility] stage 5 chronic CHR KIDNEY DISEASE EDT C are kidney disease or OR ESRD Corpora tion end stage renal disease N18.6 End stage renal END STAGE RENAL Diagnosis 02/28/2020 [place] disease DISEASE 03:00:00 PM [facility] [place] [employer] L89.153 Pressure ulcer of Pressure ulcer of Diagnosis 02/28/2020 SIGMACARE sacral region, stage sacral region, 12:00:00 AM ([facility] 3 stage 3 T [facility]) J20.9 Acute bronchitis, Acute bronchitis, Diagnosis 02/28/2020 SIGMACARE unspecified unspecified 12:00:00 AM ([facility]) E66.9 Obesity, unspecified Obesity, Diagnosis 02/28/2020 SIGM ACARE unspecified 12:00:00 AM ([facility]) I10 Essential (primary) Essential (primary) Diagnosis 020 SIGMACARE hypertension hypertension 12:00:00 AM ([facility]) 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 Diffuse large Diagnosis 02/28/2020 S IGMACARE lymphoma, B-cell lymphoma, 12:00:00 AM ([facility] unspecified site unspecified site EDT Ex [facility]) D50.9 Iron deficiency Iron deficiency Diagnosis 02/28/2020 SIGM ACARE anemia, unspecified anemia, unspecified 12:00:0 0 AM ([facility]) F41.9 Anxiety disorder, Anxiety disorder, Diagnosis 02/28/2020 SIGMACARE unspecified unspecified 12:00:00 AM ([facility]) S41.001A Unspecified open Unspecified open Diagnosis 02/28/2020 SI GMACARE wound of right wound of right 12:00:00 AM (Rege ncy shoulder, initial shoulder, initial EDT Extended Care encounter encounter Center) S41.002A Unspecified open Unspecified open Diagnosis 02/28/2020 SI GMACARE wound of left wound of left 12:00:00 AM (Regenc y shoulder, initial shoulder, initial EDT Extended Care encounter encounter Center) E55.9 Vitamin D Vitamin D Diagnosis 02/28/2020 SIGMACARE deficiency, deficiency, 12:00:00 AM ([facility] unspecified unspecified EDT Extended Car e [place]) K13.79 Other lesions of Other lesions of Diagnosis 02/28/2020 SI GMACARE oral mucosa oral mucosa 12:00:00 AM ([facility]) N25.0 Renal osteodystrophy Renal Diagnosis 02/28/2020 SIGM ACARE osteodystrophy 12:00:00 AM ([facility]) G47.00 Insomnia, Insomnia, Diagnosis 02/28/2020 SIGMACARE unspecified unspecified 12:00:00 AM ([facility]) I82.401 Acute embolism and Acute embolism and Diagnosis 0 SIGMACARE thrombosis of thombos unsp deep 12:00:00 AM (Re gency unspecified deep veins of r low EDT Exte nded Care veins of right lower extrem Cent er) extremity E11.9 Type 2 diabetes Type 2 diabetes Diagnosis 02/28/2020 SIGM ACARE mellitus without mellitus without 12:00:00 AM ( [facility] complications complications T Extended [facility]) E63.9 Nutritional Nutritional Diagnosis 02/28/2020 SIGMACARE deficiency, deficiency, 12:00:00 AM ([facility] unspecified unspecified EDT Extended Car e [place]) K21.9 Gastro-esophageal Gastro-esophageal Diagnosis 02/28/2020 SIGMACARE reflux disease reflux disease 12:00:00 AM (Rege ncy without esophagitis without esophagitis EDT [facility] [place]) D63.1 Anemia in chronic Anemia in chronic Diagnosis 02/28/2020 SIGMACARE kidney disease kidney disease 12:00:00 AM ([facility] [place]) L29.9 Pruritus, Pruritus, Diagnosis 02/28/2020 SIGMACARE unspecified unspecified 12:00:00 AM ([facility]) E83.51 Hypocalcemia Hypocalcemia Diagnosis 02/28/2020 SIGMACARE 12:00:00 AM ([facility]) Z00.00 Encounter for Encntr for general Diagnosis 02/28/2020 SIG MACARE general adult adult medical exam 12:00:00 AM (R egency medical examination w/o abnormal EDT Ext ended Care without abnormal findings Center) findings M62.81 Muscle weakness Muscle weakness Diagnosis 02/28/2020 SIGM ACARE (generalized) (generalized) 12:00:[address] ([facility]) R52 Pain, unspecified Pain, unspecified Diagnosis 02/28/2020 SIGMACARE 12:00:00 AM ([facility]) Z11.1 Encounter for Encounter for Diagnosis 02/28/2020 SIGMACAR E screening for screening for 12:00:00 AM ([facility] respiratory respiratory T Extended Car e tuberculosis tuberculosis Center) N18.6 End stage renal End stage renal Diagnosis 02/28/2020 SIGM ACARE disease disease 12:00:00 AM ([facility]) 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 J90 Pleural effusion, Pleural effusion, Diagnosis 10/16/2019 [facility] not elsewhere not elsewhere 03:30:54 AM - [facility] r classified classified [facility] H26.8 Other specified Posterior Diagnosis 08/22/2019 NEXT[facility] cataract subcapsular 02:00:00 PM ([facility] cataract EST Medical - [facility] ) J94.2 Hemothorax Hemothorax Diagnosis 05/06/2019 [facility] 10:38:00 AM - [facility] N18.6 End stage renal Pleural effusion, Diagnosis 04/17/2019 [facility] disease not elsewhere 03:38:00 PM - [place] classified [facility] R06.02 Shortness of breath Shortness of breath Diagnosis 019 [facility] 07:23:00 PM - [place] [facility] J91.8 Pleural effusion in Pleural effusion in Diagnosis 019 [facility] other conditions other conditions 08:49:00 AM - [place] classified elsewhere classified [facility] N18.9 Chronic kidney Chronic renal Diagnosis 01/18/2019 [facility] disease, unspecified failure, 02:30:00 PM (Ca remount unspecified CKD EDT Medical - Or stage [facility]) Z85.72 Personal history of Personal history of Diagnosis [facility] non-Hodgkin lymphoma 02:30:00 PM ([facility] lymphomas EDT Medical - [facility]) Z01.419 Encounter for Encounter for Diagnosis 01/18/2019 [facility] gynecological general 02:30:00 PM ([facility] examination gynecological exam EDT Medic al - Mt (general) (routine) without abnormal [facility] without abnormal finding Group PC ) findings 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 Diagnosis 10/19/2018 [facility] failure failure 12:08:00 PM - [place] [facility] I42.9 Cardiomyopathy, Cardiomyopathy, Diagnosis 07/26/2018 [facility] unspecified unspecified 03:53:00 PM - [facility] Z12.31 Encounter for Encounter for Diagnosis 03/06/2018 [facility] screening mammogram screening mammogram 12:26:5 4 PM - [place] for malignant for malignant [facility] neoplasm of breast neoplasm of breast [facility] E11.349 Type 2 diabetes Diabetic Diagnosis 06/03/2015 NEXTGEN mellitus with severe retinopathy 03:00:00 PM (C [facility] nonproliferative associated with EST Med ical - Mt diabetic retinopathy type 2 diabetes [facility] without macular mellitus, without Gr oup PC) edema macular edema, with severe nonproliferative retinopathy Surgeries/Procedures Procedure Description Date Indications Data Source(s) Vats Video Assisted 04/22/2019 [facility] - Thoroscopy (Right) 03:49:00 PM EST [facility] auto-populated from documented surgical case Thoracotomy (None) 04/22/2019 03:49:00 PM EST [facility] auto-populated from documented surgical case Bronchoscopy Flexible (None) 04/22/2019 03:49:00 PM ES T [facility] auto-populated from documented surgical case PREV VISIT NEW AGE 40-64 PREV VISIT NEW 01/18/2019 12:00:00 NEXTGEN ([facility] AGE 40-64 AM EDT Medical [facility]) Cervical or vaginal Ca 01/18/2019 12:00:00 N EXTGEN ([facility] cancer screening; pelvic screen;pelvic/br AM EDT Medical [facility] and clinical breast east exam [facility] PC) examination Repair Pseudoaneurysm 10/10/2018 06:11:00 [facility] - (Right) PM EDT [facility] auto-populated from documented surgical case Colonoscopy - SN (None) 03/28/2018 10:51:00 AM EDT [facility] auto-populated from documented surgical case RIGHT arm AV fistula 09/09/2015 12:00:00 [facility] AM EDT [facility] permacath LEFT upper 08/18/2015 12:00:00 [facility] chest currently used for AM [facility] EYE EXAM NEW PATIENT EYE EXAM NEW 06/03/2015 12:00:00 NEXTGEN ([facility] PATIENT AM [facility] Medical - [facility]) Tubal Ligation 1996 [facility] Stem Cell Transplant [facility] 11/28 [facility] right groin stent [facility] Andreea Cath on right [facility] - chest wall 02/2010 [facility] Lymph node removed X2 [facility] 02/2010 and 07/2011 [facility]aton right [facility] Amputation of hallux (procedure) [facility] left Results ID Date Data Source [id number] 02/28/2020 07:45:00 AM EDT [facility] [id number] Corporation Name Value Range Interpretation Description Data Sup porting Code Source(s) Document(s ) Leukocytes 20.0 k/mm3 4.8-10 <td> 02/28/2020 [facility] [#/volume] in .8 07:45</td><td> [facility] Blood by k/mm3 WBC [facility] Automated </td><td><[employer] count raph styleCode="Bold "> 20.0 H </paragraph>
(4.8-10.8) k/mm3 </td> Erythrocytes 2.71 m/mm3 3.90-5 <td> 02/28/2020 [facility] [#/volume] in .20 07:45</td><td> [facility] Blood m/mm3 RBC Health Care </td><td><[employer] raph styleCode="Bold "> 2.71 L </paragraph>
(3.90-5.20) m/mm3 </td> Erythrocyte 109.6 fL 81.0-9 <td> 02/28/2020 [facility] mean 9.0 fL 07:45</td><td> [facility] corpuscular MCV [facility] Care volume </td><td><[employer] [Entitic raph volume] by styleCode="Bold Automated "> count 109.6 H </paragraph>
(81.0-99.0) fL </td> Hemoglobin 9.6 g/dL 12.0-1 <td> 02/28/2020 [facility] [Mass/volume] 6.0 07:45</td><td> [facility] in Blood g/dL HGB Health Care </td><td><[employer] raph styleCode="Bold "> 9.6 L </paragraph>
(12.0-16.0) g/dL </td> Erythrocyte 35.4 pg 27.0-3 <td> 02/28/2020 [facility] mean 1.5 pg 07:45</td><td> [facility] corpuscular MCH [facility] hemoglobin </td><td><astrid [employer] [Entitic mass] raph by Automated styleCode="Bold count "> 35.4 H </paragraph>
(27.0-31.5) pg </td> Hematocrit 29.7 % 37.0-4 <td> 02/28/2020 [facility] [Volume 7.0 % 07:45</td><td> County Fraction] of HCT Health Care Blood by </td><td><[employer] Automated raph count styleCode="Bold "> 29.7 L </paragraph>
(37.0-47.0) % </td> Erythrocyte 32.3 % 32.0-3 <td> 02/28/2020 [facility] mean 6.0 % 07:45</td><td> [facility] corpuscular MCHC </td><td> Health Care hemoglobin Corporation concentration 32.3 [Mass/volume] in Blood from
Fetus by (32.0-36.0) % Automated </td> count Platelet mean 10.6 fL 9.8-12 <td> 02/28/[address] [facility] r volume .8 fL 07:45</td><td> [facility] [Entitic MPV </td><td> Health Care volume] in Corporation Blood by 10.6 Automated count
(9.8-12.8) fL </td> Erythrocyte 20.8 % 11.5-1 <td> 02/28/2020 [facility] distribution 4.5 % 07:45</td><td> [facility] width [Entitic RDW Health Care volume] by </td><td><[employer] Automated raph count styleCode="Bold "> 20.8 H </paragraph>
(11.5-14.5) % </td> Platelets 212 k/mm3 160-41 <td> 02/28/2020 [facility] [#/volume] in 0 07:45</td><td> County Blood by k/mm3 Platelet Count Health Care Automated </td><td> Corporation count 212
(160-410) k/mm3 </td> Lymphocytes 11.7 % 17.0-5 <td> 02/27/2020 [facility] [#/volume] in 0.0 % 06:00</td><td> [facility] Blood by Lymphocytes Health Care Automated </td><td><astrid [employer] count raph styleCode="Bold "> 11.7 L </paragraph>
(17.0-50.0) % </td> Monocytes/Leuk 6.7 % 0.0-11 <td> 02/27/2020 [facility] er ocytes [Pure .0 % 06:00</td><td> [facility] number Monocytes. Health Care fraction] in </td><td> [facility] Blood by Automated 6.7 count
(0.0-11.0) % </td> Basophils+Eosi 0.5 % 0.0-5. <td> 02/27/2020 [facility] er nophils+Monocy 0 % 06:00</td><td> [facility] feliciano [#/volume] Eosinophils Health Care in Blood by </td><td> [employer] Automated count 0.5
(0.0-5.0) % </td> Basophils 0.3 % 0.0-2. <td> 02/27/2020 [facility] [#/volume] in 0 % 06:00</td><td> [facility] Blood by Basophils Health Care Automated </td><td> Corporation count 0.3
(0.0-2.0) % </td> Immature 3.6 % 0.0-0. <td> 02/27/2020 [facility] granulocytes/1 5 % 06:00</td><td> [facility] 00 leukocytes IG% Health Care in Blood by </td><td><[employer] Automated raph count styleCode="Bold "> 3.6 H </paragraph>
(0.0-0.5) %
The IG fraction represents metamyelocytes, myelocytes and/or
promyelocytes and is only reported as part of the automated
differential when found at a percentage of less than 6.
If higher than 6%, a manual differential will be performed.

(0.0-0.5) % </td> Neutrophils 77.2 % 40.0-7 <td> 02/27/2020 [facility] [#] in Body 6.0 % 06:00</td><td> [facility] fluid by Neutrophils Health Care Manual count </td><td><[employer] raph styleCode="Bold "> 77.2 H </paragraph>
(40.0-76.0) % </td> Atypical 5.0 % % <td> 02/18/2020 [facility] Lymphs 15:13</td><td> [facility] Atypical Lymphs Health Care </td><td><[employer] graph styleCode="Bold "> 5.0 * AB </paragraph>
% </td> Anisocytosis Slight <td> 02/27/2020 [facility] [Presence] in 06:00</td><td> [facility] Blood by Light Anisocytosis Health Care microscopy </td><td> Corporation Slight
</td> Myelocytes 3.0 % % <td> 02/24/2020 [facility] [#/volume] in 06:00</td><td> [facility] Blood by Myelocyte Health Care Manual count </td><td><[employer] raph styleCode="Bold "> 3.0 * AB </paragraph>
% </td> Metamyelocytes 2.0 % % <td> 02/24/2020 [facility] er [#/volume] in 06:00</td><td> [facility] Blood by Metamyelocytes Health Care Manual count </td><td><[employer] raph styleCode="Bold "> 2.0 * AB </paragraph>
% </td> Basophilic Occasional <td> 02/22/2020 [facility] stippling 05:51</td><td> County [Presence] in Basophilic Health Care Blood by Light [employer] Corporation microscopy </td><td> Occasional
</td> Ovalocytes Few <td> 02/21/2020 [facility] [Presence] in 08:03</td><td> [facility] Blood by Light Ovalocytes Health Care microscopy </td><td> Corporation Few
</td> Macrocytes Slight <td> 02/27/2020 [facility] [Presence] in 06:00</td><td> [facility] Blood by Light Macrocytic Health Care microscopy </td><td> [employer] Slight
</td> Polychromasia Slight <td> 02/24/[address] [facility] r [Presence] in 06:00</td><td> [facility] Blood by Light Polychromasia Health Care microscopy </td><td> [employer] Slight
</td> Poikilocytosis Slight <td> 02/27/2020 [facility] er [Presence] in 06:00</td><td> [facility] Blood by Light Poikilocytosis Health Car e microscopy </td><td> [employer] Slight
</td> Schistocytes RARE <td> 02/21/2020 [facility] [Presence] in 08:03</td><td> [facility] Blood by Light Schistocytes Health Care microscopy </td><td> [employer] RARE
</td> Potassium 4.3 mEq/L 3.5-5. <td> 02/28/2020 [facility] [Moles/volume] 1 07:45</td><td> [facility] in Serum or mEq/L Potassium-Serum Health Care Plasma </td><td> [employer] 4.3
(3.5-5.1) mEq/L </td> Glucose 90 mg/dL 70-105 <td> 02/28/2020 [facility] [Mass/volume] mg/dL 07:45</td><td> [facility] in Blood Glucose-Serum Health Care </td><td> [employer] 90
(70-105) mg/dL </td> Sodium 135 mEq/L 135-14 <td> 02/28/2020 [facility] [Moles/volume] 5 07:45</td><td> County in Serum or mEq/L Sodium-Serum Health Care Plasma </td><td> [employer] 135
(135-145) mEq/L </td> Carbon 29 mEq/L 22-30 <td> 02/28/2020 [facility] dioxide, total mEq/L 07:45</td><td> County [Moles/volume] CO2 </td><td> Health Car e in Serum or Corporation Plasma 29
(22-30) mEq/L </td> Urea nitrogen 47 mg/dL 6-22 <td> 02/28/[facility] [Mass/volume] mg/dL 07:45</td><td> [facility] in Blood BUN Health Care </td><td><[employer] raph styleCode="Bold "> 47 H </paragraph>
(6-22) mg/dL </td> Chloride 97 mEq/L 98-107 <td> 02/28/2020 [facility] [Moles/volume] mEq/L 07:45</td><td> [facility] in Serum or Chloride Health Care Plasma </td><td><[employer] raph styleCode="Bold "> 97 L </paragraph>
(98-107) mEq/L </td> Creatinine 4.82 mg/dL 0.57-1 <td> 02/28/2020 [facility] [Moles/volume] .11 07:45</td><td> [facility] in Serum or mg/dL Creatinine. Health Care Plasma </td><td><[employer] raph styleCode="Bold "> 4.82 H </paragraph>
(0.57-1.11) mg/dL </td> Alanine 15 U/L 6-55 <td> 02/27/2020 [facility] aminotransfera U/L 06:00</td><td> [facility] se [Enzymatic ALT (SGPT) Health Care activity/volum </td><td> Corporation e] in Serum or Plasma 15
(6-55) U/L </td> Aspartate 18 U/L 4-35 <td> 02/27/2020 [facility] aminotransfera U/L 06:00</td><td> County se [Enzymatic AST (SGOT) Health Care activity/volum </td><td> Corporation e] in Serum or Plasma 18
(4-35) U/L </td> Bilirubin.tota 0.6 mg/dL 0.2-1. <td> 02/27/2020 [facility] er l 3 06:00</td><td> [facility] [Mass/volume] mg/dL Bilirubin - Health Care in Blood Total [employer] </td><td> 0.6
(0.2-1.3) mg/dL </td> Proteins - 6.2 g/dL 6.4-8. <td> 02/27/2020 [facility] Total 3 g/dL 06:00</td><td> [facility] Proteins - Health Care Total Bio[employer] </td><td><astrid raph styleCode="Bold "> 6.2 L </paragraph>
(6.4-8.3) g/dL </td> Calcium 8.7 mg/dL 8.6-10 <td> 02/28/2020 [facility] [Mass/volume] .2 07:45</td><td> [facility] in Blood mg/dL Calcium Health Care </td><td> [employer] 8.7
(8.6-10.2) mg/dL </td> Albumin 2.5 g/dL 3.4-4. <td> 02/27/2020 [facility] [Mass/volume] 8 g/dL 06:00</td><td> [facility] in Serum or Albumin Health Care Plasma </td><td><[employer] raph styleCode="Bold "> 2.5 L </paragraph>
(3.4-4.8) g/dL </td> Anion gap in 9 mEq/L 7-13 <td> 02/28/2020 [facility] Serum or mEq/L 07:45</td><td> [facility] Plasma Anion Gap Health Care </td><td> [employer] 9
(7-13) mEq/L </td> Hemolysis No <td> 02/28/2020 [facility] index of Serum Hemolysis 07:45</td><td> County or Plasma Hemolysis Index Health [facility] </td><td> [employer] No Hemolysis
</td> Globulin 3.7 gm/dL 2.9-4. <td> 02/27/2020 [facility] [Mass/volume] 0 06:00</td><td> County in Serum gm/dL Globulin Health Care </td><td> [facility] 3.7
(2.9-4.0) gm/dL </td> Lipemic index No Lipemia <td> 02/28/2020 [facility] of Serum or 07:45</td><td> [facility] Plasma Lipemia Index Health Care </td><td> [facility] No Lipemia
</td> Icteric index Not Icteric <td> 02/28/2020 [facility] of Serum or 07:45</td><td> [facility] Plasma Icteric Index Health Care </td><td> [facility] Not Icteric
</td> Phosphate 3.4 mg/dL 2.3-4. <td> 02/28/2020 [facility] [Mass/volume] 7 07:45</td><td> [facility] in Serum or mg/dL Inorganic Health Care Plasma Phosphorus [facility] </td><td> 3.4
(2.3-4.7) mg/dL </td> aPTT panel - 26.0 secs 25.0-3 <td> 02/28/2020 [facility] Platelet poor 6.5 07:45</td><td> [facility] plasma secs Partial Health Care Thromboplastin [facility] Time </td><td> 26.0
(25.0-36.5) secs
Results confirmed. Test repeated
PLEASE NOTE: New reference range in effect January 06, 2020.

(25.0-36.5) secs </td> Prothrombin 9.5 secs 9.4-12 <td> 02/28/2020 [facility] time (PT) .5 07:45</td><td> [facility] secs Prothrombin Health Care Time. [facility] </td><td> 9.5
(9.4-12.5) secs </td> Source BONE MARROW <td> 02/13/2020 [facility] 14:00</td><td> [facility] Source Health Care </td><td> Corporation BONE MARROW
</td> Fibrinogen 494 mg/dL 200-40 <td> 02/13/2020 [facility] [Mass/volume] 0 06:00</td><td> County in Platelet mg/dL Fibrinogen Health Care poor plasma by Level [employer] Coagulation </td><td><astrid assay raph styleCode="Bold "> 494 H </paragraph>
(200-400) mg/dL
PLEASE NOTE: New reference range in effect January 06, 2020.

(200-400) mg/dL </td> Uric Acid 4.7 mg/dL 2.6-6. <td> 02/20/2020 [facility] 0 06:20</td><td> County mg/dL Uric Acid Health Care </td><td> [employer] 4.7
(2.6-6.0) mg/dL </td> Glucose 85 mg/dL 70-105 <td> 02/28/2020 [facility] [Mass/volume] mg/dL 09:07</td><td> [facility] in Capillary Glucose - Health Care blood by Finger Stick [employer] Glucometer </td><td> 85
(70-105) mg/dL </td> Hemoglobin 6.8 % 4.0-5. <td> 02/06/2020 [facility] A1C 6 % 06:40</td><td> [facility] Hemoglobin A1C Health Care </td><td><para [employer] graph styleCode="Bold "> 6.8 H </paragraph>
(4.0-5.6) %
Increased risk for diabetes mellitus is seen in patients with HgA1C values
between 5.7-6.4%. Values > or = 6.5% are considered diagnostic of diabetes
mellitus.
Hemolytic anemias, hemoglobinopath ies, or recent transfusion may impact
HbA1c results. Clinical correlation is recommended.
===
ESTIMATED AVERAGE GLUCOSE (eAG)
---
RELATIONSHIP BETWEEN A1C AND eAG
===
A1C(%) eAG(mg/dL)
6 1 26
7 1 54
8 1 83
9 2 12
10 240
11 269
12 298
Source: Adapted from [place] [employer]. Standards of medical
care in diabetes-2014. Diabetes Care.2014;37([place] pp 1):S14-S80, table 8.

(4.0-5.6) % </td> Magnesium 2.2 mg/dL 1.6-2. <td> 02/28/2020 [facility] [Mass/volume] 6 07:45</td><td> [facility] in Serum or mg/dL Magnesium Level [facility] Plasma </td><td> [employer] 2.2
(1.6-2.6) mg/dL </td> ID Date Data Source [id number] 02/26/2020 10:25:00 AM EDT [facility] Name Value Range Interpretation Code Description Data Renae rce(s) Supporting Document(s ) SARS-COV-2 [facility] RNA RT-PCR [facility] This lab was ordered by [facility] and reported by [facility]. ID Date Data Source [id number] 02/19/2020 02:00:00 PM EDT [facility] [id number] Corporation Name Value Range Interpretation Description Data Sup porting Code Source(s) Document(s ) Chest (PACSIMAGE <td> 02/19/2020 [facility] Portable 14:00</td><td> [facility] ) Final Chest Portable Health Care Result </td><td><Parrable Name: alexi CRENSHAW, styleCode="Italsalomon GARCIA MRN: s">(PACSIMAGE [id number] Sex: F : )</paragraph><br/ 1965 >
Final Location: F Result Admitting

Physician: Name: TRISHA CRENSHAWIBALD
MRN: Requesting [id number] Sex: F Physician:
KATHIE ARREGUIN : 1965 Exam: Location: F CHEST PORTABLE
02/19/2020 Admitting 14:12 Physician: TRISHA PAVON history:
Pemphigus Requesting vulgaris Physician: KATHIE Study: KALLIE Portable

frontal view Exam: CHEST the chest PORTABLE Right-sided 02/19/2020 14:12 infusion port tip projects

over the Clinical cavoatrial history: junction. Pemphigus There is right vulgaris lower lobe

consolidation. Study: Portable The left lung frontal view the is clear.. chest IMPRESSION:

Right lower Right-sided lobe infusion port tip consolidation projects over the consistent cavoatrial with pneumonia junction.
Resident There is right Radiologist: lower lobe Attending consolidation. Radiologist: The left lung is Emanuel Sánchez clear..

Finalizing IMPRESSION: Radiologist:

Emanuel Sánchez Right lower MD lobe Transcribed consolidation Date: consistent with 02/19/2020 pneumonia 14:15 Finalized

<b Date: r/>
02/19/2020 Resident 14:17 Radiologist:
Attending Radiologist: Emanuel Sánchez MD
Finalizing Radiologist: Emanuel Sánchez MD
Transcribed Date: 02/19/2020 14:15
Finalized Date: 02/19/2020 14:17

</td> Head With (PACSIMAGE <td> 02/21/2020 [facility] Contrast- 16:34</td><td> [facility] CT ) Final Head With Health Care Result Contrast-CT Corporation Name: </td><td>kilo CRENSHAW alexi RADHA MRN: styleCode="Italic [id number] Sex: F s">(PACSIMAGE : 1965 )</paragraph><br/ Location: F >
Final Admitting Result Physician:

TRISHA Name: LIBRADO CRENSHAW Requesting
MRN: Physician: [id number] Sex: F LAIS FACUNDO
Exam: CT : 1965 HEAD C+ Location: F 02/21/2020
17:20 Admitting CLINICAL Physician: TRISHA INDICATION: LIBRADO Malignancy
TECHNIQUE: CT Requesting images of the Physician: ALIS head were FACUNDO obtained

following the Exam: CT HEAD C+ intravenous 02/21/2020 17:20 administration of 100 cc

Omnipaque 350, CLINICAL given in the INDICATION: context of a Malignancy concurrent CT

thorax/abdomen TECHNIQUE: CT /pelvis. images of the COMPARISON: head were Noncontrast CT obtained head 02/17/2020 following the FINDINGS:
Diffuse intravenous atrophy is administration of present with 100 cc Omnipaque widening of 350, given in the ventricles
and sulci. the context of a There is no concurrent CT intracranial thorax/abdomen/pe mass or mass lvis. effect. A

chronic COMPARISON: lacunar Noncontrast CT infarct is head 02/17/2020 present in the right caudate

nucleus. FINDINGS: There is

diffuse, mild Diffuse atrophy decrease in is present with white matter widening of the density ventricles and compatible
with chronic sulci. microangiopath
There ic changes is no No acute intracranial mass intraparenchym or mass effect. al or
subarachnoid A chronic hemorrhage is lacunar infarct present. is present in the There is no right caudate extraaxial nucleus. collection.
There There is no is diffuse, mild abnormal decrease in white enhancement. matter density IMPRESSION: compatible No evidence
for with chronic intracranial microangiopathic metastasis. changes
No Resident acute Radiologist: intraparenchymal Attending or subarachnoid Radiologist: hemorrhage is Eugene Ramirez present.
There Finalizing is no extraaxial Radiologist: collection. Eugene Ramirez

There is no Transcribed abnormal Date: enhancement. 02/21/2020

18:59 IMPRESSION: No Finalized evidence for Date: intracranial 02/21/2020 metastasis. 19:04

<b r/> Resident Radiologist:
Attending Radiologist: Eugene Ramirez MD
Finalizing Radiologist: Eugene Ramirez MD
Transcribed Date: 02/21/2020 18:59
Finalized Date: 02/21/2020 19:04

</td> Guide (PACSIMAGE <td> 02/13/2020 [facility] Cyst 12:00</td><td> [facility] ) Final Guide [facility] Health Care n-CT Result [employer]iration[employer] Corporation Name: </td><td><ROMULO Hudson ph D MRN: styleCode="Chris [id number] Sex: F s">(PACSIMAGE : 1965 )</paragraph><br/ Location: F >
Final Admitting Result Physician:

SHI MEJIA Name: Robinson CRENSHAW Physician:
MRN: JOSHUA ECHAVARRIA [id number] Sex: F Exam: CT
GUIDE FOR : 1965 NEEDLE BIOPSY Location: F 02/13/2020
15:00 Admitting PROCEDURE: CT Physician: SHI MEJIA percutaneous
bone marrow Requesting biopsy Physician: JOSHUA History: ITALIA Diffuse large

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 02/13/2020 15:00 Request made for

percutaneous PROCEDURE: CT bone marrow guided biopsy percutaneous bone Attending: Shoaib marrow biopsy Saman Sandoval

Resident: History: Americo Valdez MD Diffuse large Technique: B-cell lymphoma. The procedure, Pemphigus. risks and Request made benefits were
discussed with for percutaneous the patient bone marrow and informed biopsy consent was

obtained. A Attending: Shoaib timeout was Saman Sandoval performed

prior to the Resident: Americo procedure. The José Miguel BENAVIDES procedure was

performed Technique: The using routine procedure, risks aseptic and benefits were technique. discussed with Anesthesia:
General the patient and anesthesia. informed consent Refer to was obtained. A anesthesiology timeout was record for
details. 5 mL performed prior 0.5 percent to the procedure. bupivacaine The procedure was was used as performed local
anesthetic. using routine The patient aseptic tolerated the technique. procedure and

sedation Anesthesia: without General untoward anesthesia. Refer reactions. to anesthesiology The record intra-procedur
for al sedation details. 5 mL 0.5 time was 45 percent minutes. bupivacaine was CONTRAST: None used as local anesthetic. COMPLICATIONS:
None The patient immediate. tolerated the The patient procedure and was placed sedation without prone on the untoward CT table. A
preliminary CT reactions. examination
The of the pelvis intra-procedural was obtained sedation time was localizing the 45 minutes. iliac bone.

A suitable CONTRAST: None skin entry site was

marked on the COMPLICATIONS: right side. None immediate. The overlying skin

was sterilely The patient was prepped and placed prone on draped in the CT table. A usual fashion. preliminary CT 2% lidocaine
was examination of infiltrated the pelvis was into the obtained subcutaneous localizing the tissues and iliac bone. periosteum for
A local suitable skin anesthesia. A entry site was small marked on the dermatotomy right side. The was made..
Under direct overlying skin CT guidance, was sterilely an 11G bone prepped and marrow biopsy draped in usual needle was fashion. advanced into
2% the posterior lidocaine was right iliac infiltrated into bone using an the subcutaneous [employer] tissues and motorized
drill. CT periosteum for confirmation local anesthesia. was performed A small demonstrating dermatotomy was needle made.. position. 1 mL

of bone marrow Under direct CT aspirate was guidance, an 11G collected and bone marrow passed to the biopsy needle was pathology
fellow, advanced into present for the posterior the procedure. right iliac bone An using an additional 10 [employer] mL bone marrow
aspirate was motorized drill. then collected CT confirmation and also was performed passed to the demonstrating pathology
fellow. The needle position. guide cannula 1 mL of bone was advanced marrow aspirate 1 cm for was collected and collection of
the bone passed to the marrow core, pathology fellow, which was also present for the submitted to procedure. An the pathology
fellow additional 10 mL The site was bone marrow sterilely aspirate was then bandaged. No collected and bleeding
through the also passed to skin was the pathology noted. fellow. The guide The patient cannula was tolerated the advanced procedure well
1 cm without for collection of evidence of the bone marrow immediate core, which was complication. also submitted
IMPRESSION: to the pathology Successful fellow CT guided

percutaneous The site was bone marrow sterilely biopsy via the bandaged. No right bleeding through posterior the skin iliac bone.
was noted. Resident

Radiologist: The patient Attending tolerated the Radiologist: procedure well Shoaib Davison MD without evidence Finalizing of Radiologist:
Shoaib Davison MD immediate Transcribed complication. Date:

02/13/2020 IMPRESSION: 15:24 Finalized

Date: Successful CT 02/13/2020 guided 15:28 percutaneous bone marrow biopsy via the
right posterior iliac bone.

<b r/> Resident Radiologist:
Attending Radiologist: Shoaib Davison MD
Finalizing Radiologist: Shoaib Davison MD
Transcribed Date: 02/13/2020 15:24
Finalized Date: 02/13/2020 15:28

</td> Head (PACSIMAGE <td> 02/17/2020 [facility] Without 15:30</td><td> County Contrast- ) Final Head Without [facility] CT Result Contrast-CT Corporation Name: </td><td>kilo CRENSHAW ph RADHA MRN: styleCode="Chris [id number] Sex: F s">(PACSIMAGE : 1965 )</paragraph><br/ Location: F >
Final Admitting Result Physician:

SHI MEJIA Name: DEN, Requesting RADHA Physician:
MRN: NENA SIMON [id number] Sex: F Exam: CT
HEAD C- : 1965 02/17/2020 Location: F 15:50
CLINICAL Admitting HISTORY: Physician: SHI MEJIA clinical
information: Requesting Altered mental Physician: NENA status, low KONIG platelets

COMPARISON: Exam: CT HEAD C- None 02/17/2020 15:50 TECHNIQUE: Noncontrast CT

scan of the CLINICAL head is HISTORY: performed from Submitted the base of clinical the skull to information: the vertex Altered mental utilizing
axial image status, low acquisition. platelets Multiplanar

reformatted COMPARISON: None images are provided.

Up-to-date CT TECHNIQUE: equipment Noncontrast CT using scan of the head Automatic is performed from Exposure
Control, dose the base of modulation, the skull to the and iterative vertex utilizing reconstruction axial image dose reduction acquisition. software was
employed. Multiplanar The total reformatted study DLP is images are approximately provided. 1123 mGy-cm.

FINDINGS: Up-to-date CT There is no equipment using evidence of Automatic acute Exposure Control, intracranial dose hemorrhage,
mass effect modulation, and or shift of iterative the midline reconstruction structures. dose reduction There is software generalized
was prominence employed. of the
The cerebral sulci total study DLP and ventricles is approximately compatible 1123 mGy-cm. with volume

loss. There FINDINGS: is mild

periventricula There is no r white matter evidence of acute hypodensity intracranial likely hemorrhage, mass sequela of effect chronic small
or vessel change. shift of the Tiny midline hypodensity structures. There within the is generalized right caudate prominence (series 2
of image 28) the cerebral suggestive of sulci and age-indetermin ventricles ate lacunar compatible with infarction, volume loss. probably
chronic. Left There is mild maxillary periventricular sinus mucous white matter retention cyst hypodensity or polyp. The likely mastoid air
sequela cells are of chronic small well-aerated. vessel change. The Tiny hypodensity visualized within orbits are
the unremarkable. right caudate There is no (series 2 image depressed 28) suggestive of calvarial age-indeterminate fracture.
Intracranial lacunar atheroscleroti infarction, c disease is probably chronic. present.. Left maxillary IMPRESSION: sinus mucous 1. No CT
evidence of retention cyst or acute polyp. The intracranial mastoid air cells hemorrhage, are well-aerated. focal mass
effect, or The visualized hydrocephalus. orbits are 2. unremarkable. Cerebral There is no atrophy and depressed mild chronic
microvascular calvarial ischemic fracture. changes.. Intracranial 3. Tiny atherosclerotic hypodensity disease is within the present.. right caudate

head IMPRESSION: suggestive

of 1. No CT age-indetermin evidence of acute ate lacunar intracranial infarction, hemorrhage, focal probably mass chronic.
effect, Please note, or hydrocephalus. an MRI of the brain is more

2. sensitive for Cerebral atrophy evaluation of and mild chronic an acute microvascular intracranial ischemic pathology and changes.. may be

obtained for 3. Tiny further hypodensity evaluation as within the right clinically caudate head appropriate. suggestive
of age-indeterminate Resident lacunar Radiologist: Corbin parmar probably chronic. MD Resident Please Radiologist
note, Attending an MRI of the Radiologist: brain is more Sarah Bay MD sensitive for Finalizing evaluation of Radiologist:
Sarah Bay MD an acute Transcribed intracranial Date: pathology and 02/17/2020 be obtained for 16:01 further Finalized
Date: evaluation as 02/17/2020 clinically 16:12 appropriate.

<b r/>

<br/ >

Resident Radiologist: Corbin Vega MD Resident Radiologist
Attending Radiologist: Sarah Bay MD
Finalizing Radiologist: Sarah Bay MD
Transcribed Date: 02/17/2020 16:01
Finalized Date: 02/17/2020 16:12

</td> Thorax (PACSIMAGE <td> 02/21/2020 [facility] C+/Abd/Pe 16:35</td><td> County l C+/C- ) Final [place]ax C+/Abd/Pel Health C are -CT Result C+/C- -CT Corporation Name: </td><td>ROMULO Novoa ph D MRN: styleCode="Italic [id number] Sex: F s">(PACSIMAGE : 1965 )</paragraph><br/ Location: F >
Final Admitting Result Physician:

TRISHA Name: LIBRADO CRENSHAW Requesting
MRN: Physician: [id number] Sex: F ALIS JORDANKINS
Exam: CT : 1965 THORAX Location: F C+/ABD/PEL
C+/C- Admitting 02/21/2020 Physician: TRISHA 17:20 LIBRADO CLINICAL
INDICATION: Requesting Pemphigus Physician: ALIS TECHNIQUE: FACUNDO Precontrast

images of the Exam: CT THORAX abdomen C+/ABD/PEL C+/C- followed by 02/21/2020 17:[address] of

the chest, CLINICAL abdomen and INDICATION: pelvis was Pemphigus performed.

Images are TECHNIQUE: reformatted in Precontrast the coronal images of the and sagittal abdomen followed planes. 100ml by post of Omnipaque
[address] of utilized for the chest, intravenous abdomen and contrast. Oral pelvis was contrast was performed. Images administered.
are COMPARISON: No reformatted in prior the coronal and examination is sagittal planes. available for 100ml of comparison..
Omnipaque 350 was INTERPRETATION utilized for : TUBES AND intravenous LINES: Left contrast. Oral portacatheter contrast terminating at
was the superior administered. atrial caval junction

<b THYROID: The r/> visualized COMPARISON: No thyroid gland prior examination is is available for unremarkable comparison.. in

appearance.. INTERPRETATION: MEDIASTINUM:
The thoracic TUBES AND LINES: aorta is Left normal in portacatheter caliber. There terminating at is no the superior mediastinal
hematoma. The atrial caval pulmonary junction artery is

normal in THYROID: The caliber. visualized HEART: The thyroid gland is heart is unremarkable in normal in appearance.. size. There is

no pericardial MEDIASTINUM: effusion.. The thoracic THORACIC aorta is normal LYMPHATICS: in caliber. There There is no is axillary or
no mediastinal mediastinal lymphadenopath hematoma. The y. A single pulmonary artery prominent node is normal in with short caliber. axis measuring

9 mm is seen HEART: The posterior to heart is normal the trachea, in size. There is to the right no pericardial of proximal effusion.. esophaguss

CENTRAL THORACIC BRONCHI: The LYMPHATICS: There central is no axillary or tracheobronchi mediastinal al tree is lymphadenopathy. patent and
free of A single discrete mass prominent node lesion. with short axis LUNGS: measuring 9 mm is Evaluate of seen the lung
parenchyma posterior to the demonstrates trachea, to the patchy right of proximal atelectasis esophaguss in the

posterior CENTRAL BRONCHI: right lung The central base and a tracheobronchial small pleural tree is patent effusion.
There is and free of linear discrete mass atelectasis in lesion. the right

middle lobe. A LUNGS: Evaluate small of the lung calcified parenchyma granuloma is demonstrates seen in the patchy superior atelectasis segment of
in right lower the posterior lobe. The left right lung base lung shows a and a small punctate pleural effusion. calcified
granuloma in There is the lower linear lobe. atelectasis in LIVER: The the right middle liver is lobe. A small normal in size
and calcified morphology. granuloma is seen The liver in the superior enhances segment of right homogeneously.
There is a lower lobe. The subserosal left lung shows a calcification punctate in the left calcified lobe. granuloma GALLBLADDER
in AND BILIARY the lower lobe. TREE: There is no

radio-opaque LIVER: The liver gallstones is normal in size or abnormal and morphology. gallbladder The liver distention.
There is no enhances biliary ductal homogeneously. dilatation. There is a SPLEEN: subserosal The spleen is calcification in normal is size
and the left lobe. morphology. PANCREAS:

There is no GALLBLADDER AND pancreatic BILIARY TREE: ductal There is no dilatation or radio-opaque peripancreatic gallstones stranding.
or ADRENAL abnormal GLANDS: There gallbladder is no adrenal distention. There mass.. is no biliary KIDNEYS: The ductal kidneys are
atrophic. dilatation. There is no

hydronephrosis SPLEEN: The or spleen is normal asymmetric is size and perinephric morphology. stranding.

BOWEL: The PANCREAS: There small and is no pancreatic large bowel ductal dilatation are normal or peripancreatic caliber. There
is no stranding. evidence of

obstruction or ADRENAL abnormal bowel GLANDS: There is wall no adrenal mass.. thickening. The appendix

is normal in KIDNEYS: The appearance. A kidneys are patulous atrophic. There esophagus is is no noted. hydronephrosis BLADDER: The
bladder is or asymmetric unremarkable. perinephric stranding. REPRODUCTIVE

ORGANS: BOWEL: The small Unremarkable and large bowel LYMPH are normal NODES: There caliber. There is is no
abdominal or no evidence of pelvic obstruction or adenopathy. abnormal bowel VASCULAR: wall thickening. There is no
abdominal The appendix is aortic normal in aneurysm. appearance. A Moderate patulous calcification esophagus is of the aorta
and pelvic noted. arteries

PERITONEUM: BLADDER: The There is no bladder is free unremarkable. intra-abdomina

l air. There REPRODUCTIVE is no ORGANS: abdominal or Unremarkable pelvic

ascites. LYMPH NODES: BONES AND SOFT There is no TISSUES: There abdominal or is anasarca. pelvic There is no adenopathy. aggressive

osseous VASCULAR: There lesion. Old is no abdominal rib fracture aortic aneurysm. of right Moderate seventh rib calcification laterally..
of the aorta and IMPRESSION: pelvic arteries 1. No acute pathology

2. Atelectasis PERITONEUM: There in posterior is no free right lower intra-abdominal lobe with air. There is no small pleural
effusion abdominal or 3. Anasarca pelvic ascites.

Resident BONES AND SOFT Radiologist: TISSUES: There is Attending anasarca. There Radiologist: is no aggressive Elvis-Bony
Dana BENAVIDES osseous lesion. Finalizing Old rib fracture Radiologist: of right seventh Elvis-Bony rib laterally.. Dana BENAVIDES Transcribed

<b Date: r/> 02/21/2020 IMPRESSION: 18:29

Finalized 1. No acute Date: pathology 02/21/2020

22:13 2. Atelectasis in posterior right lower lobe with small pleural
effusion

3. Anasarca

<b r/>

<br/ >

Resident Radiologist:
Attending Radiologist: Odessa Cortez MD
Finalizing Radiologist: Odessa Cortez MD
Transcribed Date: 02/21/2020 18:29
Finalized Date: 02/21/2020 22:13

</td> ID Date Data Source [id number] 02/19/2020 07:50:00 AM EDT [facility] [id number] Corporation Name Value Range Interpretation Description Data Source(s ) Supporting Code Document(s ) Antibody NEG <td> [facility] Screen 02/19/2020 [facility] 07:50</td><td> Care Antibody Corporation Screen </td><td> NEG
</td> ABO-Rh Type A NEG <td> [facility] 02/19/2020 [facility] 07:50</td><td> Care ABO-Rh Type Corporation </td><td> A NEG
</td> Specimen 02/22/20 <td> [facility] expiration 20 23:59 02/19/2020 [facility] date of Blood 07:50</td><td> Care Specimen Corporation Expiration Date </td><td> 02/22/2020 23:59
</td> ID Date Data Source [id number] 02/07/2020 11:02:00 PM EDT [facility] Received critical value from lab stating patient's blood culture is showing Gram positive rods in aerobic bottle. [place] [facility] [place] [facility]. I called the numbers listed in the patient's bennett t to discuss the results and ensure patient is at facility to receive appropriate tr eatment. Home number [phone] reached patient's son, Haile, who states that he believes patient is still admitted at [facility]. Attempted patient's mobile [phone], left message to return call.02/05/2020 15:08:46 Comment by: Marina Reyes pv ga ve vc for treatment -------Marco [address] [place] [address] [id number] BURLINGAME [id number] f/s disc requestedElectronically signed by Almita Walls PA-C 02/07/2020 23:02 EDT Name Value Range Interpretation Code Description Data Renae rce(s) Supporting Document(s ) ID Date Data Source [id number] 02/07/2020 03:47:00 PM EDT [facility] Name Value Range Interpretation Code Description Data Renae rce(s) Supporting Document(s ) SARS-COV-2 [place] RNA RT-PCR [facility] This lab was ordered by [facility] and reported by [facility]. ID Date Data Source [id number] 02/05/2020 03:34:00 PM EDT [facility] Patient Name: RADHA CRENSHAW MMRN: [id number] General DiagnosticACCESSION EXAM DATE/TIME PROCEDURE ORDERING PROVIDER [id number] 02/05/2020 15:30 EDT XR Chest Portable Albert BENAVIDES, Shayy Kwon (Verified)[place]rokee son For Exam(XR Chest Portable) Chest PainReportPROCEDURE: Radiograph Portabl e Chest 1 ViewCLINICAL HISTORY: Chest PainSCRIPT INFORMATION: chest painCOMPAR QUETA: 06/03/2019TECHNIQUE:Anteroposterior radiographic view of the chest was perfo rmed.FINDINGS:A right sided Port-a-Cath is noted with its tip at the level of the s uperior vena cava.There is increased density at the right lung base. This increased d ensity may represent infiltrate and/or effusion.There is blunting of the right costophrenic angle which could represent pleural reaction or a pleural effusion.T here is no evidence for pneumothorax.The heart is unremarkable.The mediastinum an d hilar soft tissues are unremarkable.The bony thorax is unremarkable.IMPRESSION:T here is increased density at the right lung base. This increased density may represe nt infiltrate and/or effusion.Thank you for allowing [facility] to participate in the evaluation of this patient. Final Dictated: Jaden camacho MD, Manuelito Wade02/05/20 15:33Signed: Manuelito Hall MD 02/05/20 15:34 Transcribed by: DOROTHY Name Value Range Interpretation Code Description Data Renae rce(s) Supporting Document(s ) ID Date Data Source [id number] 02/10/2020 04:00:00 PM EDT [facility] 1965 [phone] Microbiology - Blood CulturesPROCEDURE: Culture,Blood RCE: Blood BODY SITE:COLLECTED DATE/TIME: 15:00 EDT RECEIVED DATE/TIME: 02/05/2020 15:17 EDTSTART DATE/TIME: 02/05/2020 15:17 EDT FREE TEXT SOURCE:ORDERING PHYSICIAN: Shayy RowellFINAL REPORTSFinal Report []Reported Date/Time: 02/10/2020 16:00 ED TNo growth at 5 days.PRELIMINARY REPORTSPreliminary Report []Reported Date/Time: 02/09/2020 16:00 EDTNo growth at 4 days.Preliminary Report []Reported Date /Time: 02/08/2020 16:00 EDTNo growth at 3 days.Preliminary Report []Reported Date /Time: 02/07/2020 16:00 EDTNo growth at 2 days.Preliminary Report []Reported Date /Time: 02/06/2020 16:00 EDTNo growth at 1 day.Preliminary Report []Reported Date/ Time: 02/06/2020 10:00 EDTBlood culture incubating < or = 24 hours; negative to date Name Value Range Interpretation Code Description Data Renae rce(s) Supporting Document(s ) ID Date Data Source [id number] 02/10/2020 01:35:00 PM EDT [facility] 1965 [phone] Microbiology - Blood CulturesPROCEDURE: Culture,Blood RCE: Blood BODY SITE:COLLECTED DATE/TIME: 14:43 EDT RECEIVED DATE/TIME: 02/05/2020 15:17 EDTSTART DATE/TIME: 02/05/2020 15:17 EDT FREE TEXT SOURCE:ORDERING PHYSICIAN: Shayy RowellFINAL REPORTSFinal Report []Reported Date/Time: 02/10/2020 13:35 ED TDiptheroids from aerobic bottle Positive in only one bottle, probable contaminant. N o further workupPRELIMINARY REPORTSPreliminary Report []Reported Date/Time: 02/09/2020 10:29 EDTDiptheroids from aerobic bottle Positive in only on e bottle, probable contaminant. No further workupPreliminary Report []Reported Travis e/Time: 02/07/2020 22:44 EDTCulture in progressPreliminary Report []Reported D ate/Time: 02/07/2020 16:00 EDTNo growth at 2 days.Preliminary Report []Reported Date /Time: 02/06/2020 16:00 EDTNo growth at 1 day.Preliminary Report []Reported Date/ Time: 02/06/2020 10:00 EDTBlood culture incubating < or = 24 hours; negative to dateSTAINSBld GS []Reported Date/Time: 02/07/2020 22:46 EDTGram Positive Rods fr om aerobic bottle Results called to Almita BURRELL by with Read Back 02/06 22:46:07 Name Value Range Interpretation Code Description Data Renae rce(s) Supporting Document(s ) ID Date Data Source [id number] 02/05/2020 03:45:00 PM EDT [facility] Name Value Range Interpretation Code Description Data Renae rce(s) Supporting Document(s ) Rapid Negative NO [facility] COVID-19 - [facility] ID NOW COVID-19 assay is a rapid molecul ar in vitro diagnostic test utilizing an isothermal nucleic acid amplification te chnology intended for the qualitative detection of nucleic acid from the SARS- CoV-2 viral RNA.For more information please see the link [email or web address]/co [email or web address]/717491/download Rapid COVID-19 Interp UN [facility] First Test? NO [facility] Employed in Healthcare? NO [facility] Symptomatic as defined by [facility]? NO [facility] Hospitalized? NO [facility] ICU? NO [facility] Resides in congregate care setting? NO [facility] ? NO [facility] Occupation ([employer] [facility] resident) NA [facility] Employer Name ([employer] [facility] resident) NA [facility] Employer Address ([employer] [facility] resident) NA [facility] Employer City ([employer] [facility] [facility] resident) NA [facility] Employer State ([employer] [facility] [facility] resident) NA [facility] Employer Zip Code ([employer] resident) [facility] Employer Phone ([employer] resident) [facility] ID Date Data Source [id number] 02/05/2020 03:36:00 PM EDT [facility] Name Value Range Interpretation Code Description Data Renae rce(s) Supporting Document(s ) Lipase Lvl 21 IU/L 22-51 LO [facility] ID Date Data Source [id number] 02/05/2020 03:36:00 PM EDT [facility] Name Value Range Interpretation Description Data Sup porting Code Source(s) Document(s ) Glucose Lvl 112 65-99 [facility] mg/dL [facility] BUN 46.7 6.0-20.0 [place] mg/dL [facility] Creatinine 6.43 0.40-1.0 [place] mg/dL 0 [facility] BUN/Creat 7.3 7.0-29.0 [place] Ratio ratio [facility] Sodium Lvl 137 136-145 [place] mmol/L [facility] Potassium Lvl 5.0 3.5-5.1 [place] mmol/L [facility] Chloride 97 98-107 [place] mmol/L [facility] CO2 26 23-29 [place] mmol/L [facility] AGAP 15 5-15 [place] [facility] Calcium Lvl 8.3 8.6-10.0 [place] mg/dL [facility] Total Protein 5.8 6.0-8.3 [place] gm/dL [facility] Albumin Lvl 2.7 3.5-5.0 [place] gm/dL [facility] Glob 3.1 2.0-4.5 [place] gm/dL [facility] A/G Ratio 0.9 1.0-2.2 [place] ratio [facility] Bili Total 1.2 0.3-1.2 [place] mg/dL [facility] Alk Phos 44 IU/L 38-126 [facility] AST 18 IU/L 15-41 [facility] ALT 11 IU/L 7-40 NO [facility] ID Date Data Source [id number] 02/05/2020 03:35:00 PM EDT [place] [facility] Name Value Range Interpretation Description Data Sup porting Code Source(s) Document(s ) Lactic Acid 1.1 mmol/L <=2.0 NO [place] [facility] ID Date Data Source [id number] 02/05/2020 03:29:00 PM EDT [facility] Added by Discern Rule GLB_ADD_GFR_CMP Name Value Range Interpretation Code Description Data Renae rce(s) Supporting Document(s ) eGFR-AA 8 >=60 [facility] mL/min/1.[address] The MDRD 4-Variable IDMS traceable Equat ion for non- individuals is used to calculate the estimated glomerul ar filtration rate (GFR). To estimate the GFR for Americans, multiply the prov ided GFR result by 1.16. The MDRD 4-Variable IDMS traceable Equation is validated in individuals 18 years of age or older. It is less accurate in patients with extremes of muscle mass, restriction of dietary protein, ingestion of creatine, extra-re nal metabolism of creatinine, or treatment with medications that affect renal tubul ar creatinine secretion.GFR Categories in Chronic Kidney Disease (CKD)GFR Category : GFR (mL/min/1.73 m2): Interpretation: G1 90 or greater Normal or high* G2 60-89 Mild decrease*G3a 45-59 Mild to moderate [id number] 30-44 Moderate to severe decreaseG4 15-29 Severe decreaseG5 14 or less Kidney failure eGFR-LORIE 7 mL/min/1.73m2 >=60 [facility] The MDRD 4-Variable IDMS traceable Equat ion for non- individuals is used to calculate the estimated glomerul ar filtration rate (GFR). To estimate the GFR for Americans, multiply the prov ided GFR result by 1.16. The MDRD 4-Variable IDMS traceable Equation is validated in individuals 18 years of age or older. It is less accurate in patients with extremes of muscle mass, restriction of dietary protein, ingestion of creatine, extra-re nal metabolism of creatinine, or treatment with medications that affect renal tubul ar creatinine secretion.GFR Categories in Chronic Kidney Disease (CKD)GFR Category : GFR (mL/min/1.73 m2): Interpretation: G1 90 or greater Normal or high* G2 60-89 Mild decrease*G3a 45-59 Mild to moderate qkldyxvlS2g 30-44 Moderate to severe decreaseG4 15-29 Severe decreaseG5 14 or less Kidney failure ID Date Data Source [id number] 02/05/2020 03:29:00 PM EDT [facility] Name Value Range Interpretation Code Description Data Supporting Source(s) Document(s ) Troponin- 0.14 ng/mL <=0.05 HI [facility] ID Date Data Source [id number] 02/05/2020 03:13:00 PM EDT [facility] Name Value Range Interpretation Description Data Sup porting Code Source(s) Document(s ) Neut Auto 72.9 % 50.0-80.0 NO [facility] Lymph Auto 23.1 % 14.0-44.0 NO [facility] [place] Auto 2.3 % 0.0-12.0 NO [facility] Eos Auto 0.9 % 0.0-7.0 NO [facility] Baso Auto 0.8 % 0.0-3.0 NO [facility] Neut 5.6 2.0-8.4 NO [place] Absolute x10(3)/[facility] Lymph 1.8 0.6-4.8 NO [place] Absolute x10(3)/[facility] [place] 0.2 0.0-1.1 NO [place] Absolute x10(3)/[facility] Eos Absolute 0.1 0.0-0.5 NO [place] x10(3)/[facility] Baso 0.1 0.0-0.3 NO [place] Absolute x10(3)/[facility] ID Date Data Source [id number] 02/05/2020 03:13:00 PM EDT [facility] Name Value Range Interpretation Description Data Sup porting Code Source(s) Document(s ) WBC 7.7 4.0-10.5 NO [place] x10(3)/[facility] RBC 2.79 3.80-5.20 LO [facility] x10(6)/[facility] Hgb 9.8 gm/dL 11.4-15.1 [facility] Hct 28.9 % 36.0-46.0 [facility] MCV 104 fL 80-98 [facility] MCH 35.2 pg 26.0-34.0 [facility] MCHC 34.0 32.0-36.0 NO [place] gm/dL [facility] RDW 15.1 % 11.0-15.0 [facility] Platelet 90 150-400 [facility] x10(3)/[facility] MPV 8.2 fL 8.5-13.0 [facility] ID Date Data Source [id number] 02/05/2020 02:24:00 PM EDT [facility] Name Value Range Interpretation Code Description Data Renae rce(s) Supporting Document(s ) [facility]eEdLLTwT[facility]v2N [facility] KNCA wON3wqvl1CA7HBB [facility] 5ndGg gODUzNTMvRmlsd JKaR7JiMPW lXODkj5Kw Lc8geQJaPC 5KlQlhlT2 vdrtuHXa/f 7WGziSA4q Sxvhx0qA8D DO2P4JjXv E0aFRkSp8T nXkHI7B92 vvXtQol4qF oU++JdY4t MoJK3HBMdm vNff/nT3/ 6C1enV2+t3 /+GX3/rudi //1l/L1n3/ 8c46boo0s WV+/+48iUb 6e97/yVdb oAB1ws2/f/ fGXf/Jv/u bvv/7iz7/G aGM9/+Pv/ vMVa8+nXLl n/4m1u4Di +wh6q4v0Z+ 8AmYp8Cf3 L6T/9t7/9V 3/xr//FP/ vL3/xPX3/+ m3/9F3/1G xaeZXxKDeF /+df/8s++ /uevv/7Tv/ sbC2dKBg+ snv76X78cD mP2rzG//q //9t9/rQVX /J///o9/8 5aiq9kd2uM qy/xas27p n//+f//7JL JyE2pSwyz /+9/8NrUb4 yydmr9it/ 13X7/W0Cvw z/72b//u/ /gvf//1P3z zjV089n+1 iur7u7/746 +06af31n+ d6GoMUqDhv 8Hi32855L /6/X//+69/ 8zf/23/5N W1X9He//9v /9GvarsRf /i9S/k67R0 V++y9+eT6 jPLV//Z+/m OZ+PrN+/f GXNdbnbMd/ +OWvpNrPG vV0+be+BXj +lzrJjQ5V 83kntzzfZe QN6/MmMD+ nsYBiFnj// 2EBxSxQPj WpUEwCz/70 SgLALDA+g 7JDj2O3x0b Ciq9AO+dz SIVhFnj/2S oliMX8tj7 SZNnN9oIEO ygmgb0/g1 CSh0G3aT6U jhpekc3oB TiFO3AYJCa mgbU+lVUA j5LPrPFblo IZrAKYBOb ToHEvzkZ6E R2Ly2plDn ALPJ/aWEAx CbyfAjdAI Th8p1aqqzz FymexAmAS 6PuzuQvALD A/E7vRNkB 2qTwfgVngX LiRNbKf3A vtMQBT6Oim ZwHFLFByL 0ROcF37afk 0LCbI3Ssy FmifxlMemA DlAZ4yCJq C7z+L5yMwC /TPZhXALF Zc7BZNcZLl iQ3cUeSkT D+KLkOdW7C PYBXALPAu wXjb6KvDo7 ZNRZ6GVKb op1RYsP/K5 QKpeJ/UA8 MsMD+jsYBi FmifVEHLP IvPzx89QGL JrC2m+QoA q6OmMx4JXL aB+mmsApg Mcs9KeaIdW 8zPZBXALN A+n0JZBnCk 4p8GQZXKw V85OmtJ32L LUIXS3NhP LZEXV74A8j ALzNwLYBb s4o5UTEkZ1 ilJhWISaP zLkM4Hm6It oVkFMAvUz +RSRThA89V zWQUwC/Dj NT/bPyWVKm mX6ek5P7D TjYv3lgyKo vHIrQdmgf jJhGUBIP6m fbjoWZ/CE a3PUFmiZGL LvFsPnoXA V6Cc/Zmkwj ALjM+uLKC HVg5ui7AHo Szw+hiDBR GMaM1yogcZ WeDdemwWU LfD7GOSKHE AfQgT8dEa CwzZNJOAYh ZouRfALKB 9gqMLCXQf7 V4As0D/zM 4Cilngtcus EgiU3aYd6 Gx2iAIzQ4c TUCa1quwW BXLx8+lJgW FE2VopbIL gFnitMpcL5 OLyOTwfgU bgwS6SPjYe eFj4kTAY8 6ezAmAWeHI PgEmgvhsP nvDALNBzH4 BZoIoDSAK JXcI0lWryH Efren+ek8G4 DUgAc4jRSn vEETeHce/ CKASeBdbA6 rAGaBIbED ElDMAu/eg1 QVW5AX0cP UNPKmq4Iki kAqbqkDgF K0aI0NxZWc /Svi2EvBU i5wrpcDZRf /nSoHvMXr AdP5ESGMxx +iqgGpuCU iN7PENbBMc KJi7gxhxO 2AKNUq04gy QCquybcGv MUjxwfGt/D AoBQJ3A40 IP+NAoae1q cTLN5LG2/ iAt/Travis+iA t+IYw2wMy 8gJPAtIvAt ILByPGDlc UGYXGnqj1N hkphO1jH1 q119b3RCMH Z2WnqQTmg 1n4hgPvs2u G38tXLWPU UYhyj+1rGm 28RbrJCKj 0pUi1MBY7d 6gfsYiFZ5 YcyRbGd2yg iN5K3xRaH uvGrrHKz5B SLPp3TwJG o+5vmjUiO6 eKqbEcWAV PyuEVQqiAr VybmlCm/x q1d53pctzb TJdaMa9KL BVDjFxbylC qlYHbxbrP QI84hlMqOL 6lzeUoVUv FKrAW/puentes+Q umsKAVNxS lnFmpDhP9M FxdUP2mF+ mFbz1Wfee2 DQzzAIaHS ABxSywJEpC AopJoGiE4 dqRa4ROCC5 JKGYBjZKQ gGIWOBItIg TYRJX4NvX GdYvq188Lw 4VGs1uTMI m0J/cCmAWa YC7ZUWFGd CqXEJF8p6c bUzREy6xs nageH7WVOJ KAYhaQwB+ WH3Amhuuhr RyYBTTySA KKWWBI/JUE PYIYce4TO WDDhNV0VCm WNq2zAbTw sHIvgNlePf InGSzFLFB cP9HCJFgnL AHFLKCRbB MJGMJxV5H8 PgKzgEbTS UAxCyzZOpC TMiMHN38I itkwVykhy6 yYBXQDQQK EVGEP8ldUI BW9meMLi+ 3gQBj74ZhS LKAbKBJQz EFi4eYzNCJ 4B1VlAvl6 mB2HDlKtk2 0OXDk6PQi 62c3FXVu87 NEJpTCM8G 0vCShmgSNb fhJQTAJNN 95XAJgFhrg cJKCYBXTj TwKKSaA/uR fALKCOBwk oZoGZewHMA gv1uROm5n eR6YhvHiDG RRJQzALqv JGAYhKYjzi xVwCYBdSB JAHFLDDFkS YBxSygTiw ZFTtLt5mqP COBWUAdaR JQzALvFoTL YsBpOF373 jUrZoGW+wD MAhJNoHKB BOtbL9OO3P QJyFwBYBb oqQcKuXhJS IjKFdPe/N YCeE9lL7KU n0VOTTanE J7RcVHbTra SGiMBxex8 aFiKvA/FLN AlPEcCill HY1SrzRrL5 eE2PyvOCz 4jAcUsMHIv cZgZZ6Kod GaFLtw7KOd BLsFWElDM BvwsGFWC4B w4VpBwK18 vW2yslDCGc 8CQcDMJKG YBDfiSgGIS zO6z9lATD uoPU3HlYeF lIXcSUMze 5sO+5pOKam 68KShciO6 MTXVHGr2MZ MWryHHFLQ expM7vC2cB I8NZIZHQe gMYJoGdIwG GWSDHAgyz NR6WKZxZ/V n78XjRXDv vEYHzPSRwv jIElj8QLm yPCnwPCzzf 3xUH09AF9 z3h0IiEEOg fYgPPt+CA 5JNwLwyzQI 4PGGaBHCE cjJH2KaDCP GqOEhhmgR QnAOTiHCkw TAItxwoMs 6JMGjUzgI4 XGGaBHDEw JVO3hGpJlL hHDQyzQI4 bGCaBkSMHh tthle5Nt8 COHhhmgRw/ MEwCMwcQD LNADiAYZoE cQDBMAisH WQhqEO5fGL aBHEAwzAI 5gGCYBHYOI BhmgRxAMM wCOYBgmARO DiAYZoEcQ DDMAjmAYJg VLiRE6CtB JwcQDLNADi AYZoEUQAC r0gRZVAODQ AcQDLNADi AYZoEcQDBM AjUHEAyzQ J8sMWrPXJO wTAItBxAM s8ERNKaexI xAMMwCOYB miUR1LfMQT oEcQDDMAi y08kANOKsS DJPAyAEEw yyQAwiGWSA HEAyTwMwB BMMskAMIhl auKxEHb5B JvQAmgZUCC IBcnAMIhl jzCzECf0BX KXHBZl7OT MMskAMIhlk lPlVOg1ZP AQTDLJADCI ZZIAcQDF+ B+eQAgmEWy AEEwyyQAw iGWSAHEAyT QMkBBMMsk AMIhlkgBxA Jd0PRAZLT LJADCIZZIA cQDLNADiA YJoGWAwiGW SAHEAyzQA ogAFJxzwEE wyyQAwiGW KWDSQF5AKu QDJPAyAEE wyyQAgiAXJ wDCIZJYOY AgmEWyAEEw yyQAwiGWS AHEAyTwMoB BMMskAMIh ozmSvYSo5Q OAQTDLJAD CIZZIAcQDL NADiAYJoG TAwiGWSAHE MvbJE2zUO 4M82tVEOSa kAMIhlkgB iPKd8GXSGw mgZICCIBc nAMIhlkgBx HLu8JtXIX ALsoBBMMsk AMIhlkgBR AAqbjlAIJh FsgBBMMss RFWaHSK4GW CYRLoOYBg mAVyAMEwC+ QAgmESGDm AYJgFcgDhH yRLvEZvP+ +2/1SgnaY7 Se+q8vo7E khO3vohKnm /9zdRfroF 9aNOeH8oM/ x49+DHzP8 fs+5/zHj/K yl8g1hpKy Otf8xy/jHD +Mfs3h/za 3/Kcf05v/T Y2E6d3el/ gVv5Crnck1 y+e2Inglr l+1hkrJ2R1 vzbumvc5Z /37KYfMox+ aOW2GlAzH 813+SHr5Of Mjx+zLn7M ePgx3+DH0/ 4fT9p/OuX ++YT5x/PdH 09XfzzZ/P UC1nzKqL/8 AA1t11enJ 5J+OPO13QX lx/OLH88Q fozf/xg7/z Fu/WPU+Ie Y7Y/x0h9jl T/GCX+I0f 0YIfsxOvVj ZOjHqMyPE ZEfIxI/RgN +9MR/9IJ/ 9EF/8AB/9L 5+9Hx+9Dp +2PH/uOf+c cf7/2O3qZ VaW0d9v3i5 x7aIOui4a 7prp1wsO0w KD5/0zx/U I8V0j9x069 ukq+q1vh7 4O+p/+jtlT Cjald/9x7 jwbtnP7/Jf 2Oa2O5kkd 28gOy4EmrR IrqMa6LnW es3GP7EC3S 49xAyBFu9 0SZi0jiaO1 UJdQCtuq+ qcuPY1xyOC 13GBorSw4 rDrJjq9mom Cz271zMe4 9ByYWOG23O 7Q7EcxiV0 7ufTCXhPUQ 8JObjMf6i f6k63D24Ij 0g/a4OtWq E0d1NZGa4t r2nErNeRv wyCt3PrJTN 0HSk9Ycwz IrgFrV8SR8 scE3D6Uxr SirK8WV5Mi MoP5OLChi gtNixWaEkM Q90dYOhZR ZGddFOqFix dKbP+FDUj 8pYKiAdHd7 iLLDaUW7X 9bGyU13c4x mjP5VL6eT dlQQrYKu37 2eX3Lq16N T6jg66KldB Lj414AKhb oY5JrqS0wC 9Z+Z+UL20 5Mg47M5Giw edUcK+TOd u0EUq4LLiL g8DjIFDkH VejZ2jPL16 PyVQ/q3fj BCq1ATnp4A eg9ZaoRKQ 2i1PHx2pQ1 tiMb58EMS YQ8NB4C0MQ 0g3Ah5Xm9 NtRdMFtH3s c3KZ8RvXk SESYq9e7ib tWtrVCvs7 /wVCrdesxI VHkYlIP4i jEXfMkXSmi GGYMsi3ST y/VTALx8cH 5UfuEppPa 0EsUlnJ1/d 0eX/ZhORw EBXytO0UNP 74ER19LDc TA8gcZZIol qEOub8lKv Y7vjHdh8OV cSXPOO+Qs PoaIH/lETf EOCrSbhPh OcNPteuEaC +0IKODi0Q Yd6vLzJ87z ZckPpbTY9 zaJCsd/+cl 8oZ/kBG2J HGkyhx0Lnd +qgvqa4sm DCcRJcLcG9 qAcWbLJJJ bFCaeQEwcg Ar4FciPdM o6pp9/NfOD M06lba1aS 8pA0mEJ5Ja QsK49DX63 jkyNJUbvAb bY2VAM+6s 1ITo6mAodO ujzwd7ZcX hZz1QJG8Bb HE3/N0Lfb xvvOq6kQ4q H/hOXfOv/ uPQqvxCyt9 Ly/s9a4zz XIVfCCWmtU L9wVg3Iwi ydDv5k635L o72/SKN8w p4rn2sU7Jy T61agvxa3 akP16HJP51 1gQrN/h8e kJmVtH+42b VoanBjDg4 OLLS/sBRsd AK6oKf1wE Asc71x/Wo2 q2z0DqCgD /kzKCZU2k+ gbId0xYQk f6tJHBquK9 ajdHEtmUY 3OWaRrklTG b13Qo/525 1ALtvI8Cd7 hfUbumcCW cY2ym0L34N qLZrvV/YF cIP8HFvgbz zfvc0zGHI PdzeDrPqst 3NKka/u1k tVkrvrbuWA rRoM/fCc6 ddH/AOvNaB fEo54zO9D exgz6S0gEJ iO6xRbw3j 0wcQHNwnu1 oi8AEm7oB dkVgB7OIpj mvJmm/UQD vq9+k7ET/z RiwkCHmD1 6dSgxccKXt esrE4Lwte kl0ig6n33Q PjHrL5Hla mWLsL1Iz5C oK9gW93eA 3QvDjPF3ru 9qoOdfbAo NqCIYfCtKa 9sNGaJrcH JlV8XI+Xrn G3BC/ctBS YGoz0wrSP3 gvb/bIlSE 8W11IsiG3a Vq6g122Bg 332vZnzZm6 je4ZyMA2P hFdLcNMgj+ qKHBZuZP3 Xbotf0xEtf FAp1IIa5z G9gOjRNdX1 LPEYp21cA 595avH8I11 gh8KseDAg K/KaNzeZB7 MTKpTv44T Ky8QLO/fOQ aJ14ADrNO 7VlsYO5RmK uAGpi6bxW tw58cEVP0I xL/yFZlLR cWKoAM7c1u nakxtDrH7 vDV5qsaFxR rE68C+s2L Pj7t6Mj2qt jATnSc/uR y3UVkQHRlW M0BG27WYb 0rxjB6ueS7 SymuVqXPg ioxx8x1AUE +sJkP8huH XG80glH4+w 3jWOssAf2 TnJg9zP9jL ba3RjKacS i/X5vBwU4r Ve+4FRlfk hH7j0RxueN Y7qC9u+fX eysElNR7lj 9uWF+7bnR WcQLNDjNRU 3mA8gELKl X5wqF6NBsU SJDpYJIUd JgGJNK0Qhk q4oAWcW6W lhrVSNJWxf SF/GiyZFo J69Vp7GvEq NxD4IrRar a4h0xuWQGS 9L+2Q0e4K Ew0qyC0HJL 4zdhZXeVI jmg3FmaXy0 acvywnWnw 2xSY2b5Gfq i1pJisqkd 0Qmw8VJbCa q9dCN7pcx qvd9VN3qbd VTib3kwNQ SGw4khWxnW OYa8aXIYi 95IBiTpWUh L9/e8PhYF dNhqgmrsfG 8a1Reb9oO /ZAp0wGt0S e6hOn0Ej+ zfQfwkm5+l UE/7xT8qN M52XRn99n/ QTn7kSLft DsCVmrQe52 DU+es5rgV GP5KNpXPAK tA08lHLWD jGLl1Nf1Qc gEtb2gqBw N1rGk3onBD FLcsoGvBR hfXoDoxsFf ngv1wjbI/ hemDnbICd8 vRxuQF0gZ dKH5gwC1pM 9uWWkn5uA hjJJZveBtB iPebhYZ9q dGH4J4ecDZ WcZVBji8p CNki9Y8LgH JftONFhg4 3y0LsK6zTr YErtLUkP5 e7Cwv0bZ2C GAkOrzHXC K0WVO5det3 /y76K+Wub 5SL4ilb6UE ipoZT4FuB ILGOq4N4ix D/ZgY/qiQ YuEzKCYDcM pVO8tcSNU 9Y0Yn2esHS 3YUds+vdD gtQ6jUn/[place] dmsv7bv++ /GAG+gM6ln 44BcQ5Vqw ITsHeJm7Rl Erx94rXhE 8eEpsWHjXN GGogvbTsJ qSzv+nrQ2S R5UBwKj6T bHoalyYEX9 sdz8cesFL /a4FYX+w1b 6DHOXpO0/ 68Q0H5Z5Nq RymdNJj49 fXGxLFbaX/ 4U1hnbFKU QlznRh9ync PFSAw345K ML+RtPuhYv 5Cj48xBhh ZMnKRp8piO jLeFEbqZC tp1zUu+b+R Gk6Y7v8EO GjMtbyQ2kJ Sr5rMbN5J Iz9jXaoSpu tT/pCtWkT bJFyaFcUKq /r3yEtCYz 6wnLugrItt dLslNDorf kaj1PCFUsF wqhJOSidC lWHS8ucpb9 +Zi/qk5Fp 8LdZeML6O6 hSClX9MAy uSLnNFY5hD EOx0Uy08J HgWjU4soHk 9InxUUhu3 dDkkynBM0Z jLHcJeaGZ zseeHTwuC6 fg1quDgoo XBK19Ghqpm Q1b8rhtow cl4iddpw8m vu59q5Z5Y u8A4bWDyHM 5C3ujD/Ok u4TO2pwlCi 4Xbtocn+c qFVrHfpW+s FMw3SPH2w xZD8X2nnM6 DS/c1GDhb uDiOU6ezm9 7Rg6pcZLv 3TTx8a34d5 0P/0WbXDu 6nW388AMYi yuplSvBTh /3P8d4Qo+F OzIP81tTk OQvboItGVC 5+lXA9JMI UCP0c3A1k9 i3W2R+KJr Y9S27DPdtk yXULx06T3 7hatzSUy3b hNkPPePDg zKSH/rCRmu mQXw3EItY n44uoHzx5N Is1/9og/L H1yLdaYF/4 aDlXlgEyV dLv8hu9Kz0 0WKru0U1v Qyexew5H4a 4l7x8cJRZ +bPcUUTNy0 6qD6dL5cb 6EaVjjZgk6 B5nqnnrsn Eqqie3ocbz 3jZTakNzz Mxjes22pTH M4IsuHNx+ GqVEvHDxpD jJoJbncUc aFMiFEhl2O +8a89bzIl 4FEHBKgAJj Zw0WXO+HJ zWyme4vxjr t+oJnzXjN UE9vSJ4FFq KFtoSCGy3 smcm5lwLf+ dOCF+egyN NDo3lK5dU4 D7X98tYmb okLCzq3b+6 oSw4je4+R 6X6u572FJV xP4sneUWP ++K44uuq4l rW4Gu1wn7 e5PMDQHGkE o4wbEpEk7 EUJXrSgCLY TT8MT+uyD VQuvxv9K3j u2YmnCYRE SeSbzwl52G 3sxrf3Nxq muFJYTnPKK nkhfsre/3 IuNcjPEVu6 yVEsyo3dH 3YhrO7Oh1C 3TEqDQ7Rj lJ46J7YUeH sGHou/lOX 4KWqbhSoek gjsdvQgOc osx2oRM7W1 whWz7ycYg ohXxV6T2Qc /6iiUyETa nFqtBedwoB 960UxNsfi 2gZTPZvrQU W9ul6WYqs Fzmor5OY/E 7qX5PQQ9D ApWCvKYrj8 Sm2/vq7uc 1CGcJS7kyC Z1cWa53De XUC+ztwkRY MlQLahvgI Fm3csff1bp 7qe45zuKP XrME8JBsYA b6cU5kg1t 3O8kafRAvC DGuRKITJk 1BqlMslKV/ +OWu9X4cZ t1hHjhgELg RBbfU+uEO dX4o0E5z1F NkDaYpN24 xSRx8Kjgr5 8I4aYSx6i szISm3kiCt ehteyXwLZ vstuA1+Teu WzpT78myU K7Ub2U+3uu 2esY3D/lR +fH/ThgyoW h6CvIlozt [employer]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+mAPzKub 33JMnWlHH tRtHRKhloN ZCayZJXlU 42Y6GZXoTT zs41ID3MU YP8h5ZDaMr JsdvD8Tn2 CL2/DAjadK MW4J1hsgD F1Mb1On30K 5l4tHT+g4tvtadGpB hXlIEQh2s hr99evNAjL ikw9vnztb N4qkXxJiec Jwfn8p1vi VfkRsWaXpE jDZU2Soic MWVqd7/Wyr r77ITruDc fvBv77af/B jWpRpxQ98 R1BfxtXHcp eT38/HADb rBa0FC8N+c ceBHmTu2b aulC6MkUDY uFeZFLATX jwcawzuRPC 968INeZDn lK6SPlEu/c 732A0xPpW +FJmy8h2/X 7Rz7TddMp cV2bkcpaPf 7dkFtftxt ymzSWPGWmr kI4fjGqzt dMYfXHDwVK Xx2eeO639 2kays55vcJ jjfzJhrye bMjrcUMOQ9 2uj0hb2jt Nipprc1v3B h5DWzgV7y bLlvmLSa3Q Aj84fwTi1 RfdivvCmJW TdUkLy2Ma csuSbsT61w H82Oyxflw e+LcoMg702 Ee5vxhMBg Fcy66i+nhB adVNOeZSa 75xsPLmkez o8DtMOcyA PWzNXeOobP LukQU1u0q zmMHnya2hX 1ww++GC+T TF904XNh55 HlqYwk6jG 0ygEIH0K9z j3FL7t6E1 iFt7oMc27r fpZx8DU+l y9HZ+2BFo0 7VUf32gY7 ai4u96cVuu JGDBkZBrI GhuNZgas/y 25CDlVd4+ /XwAfknj1s rg65uyfkz 2ZVYciVjwY lpkYgXuK8 snz/zFa+T6 llgvS48Ic U+6QNIsISu aH92fshpP q/PqTFsUb6 nNhM4KkGf 0NoFqD1pWl az3iZkxI8 5u+fOsvVtq kwegu26zj zbLzYrai/v F4RRERxcX YqVz8rSwmh XS4+YmY2g kUzNVZxlal pckuHFjLE crumZJWoQ5 Ic07y8S0y ajPErViaCN ZJ6u6a7kd LL/SIDDIQUI+mWrR JG2yKvomE pl8QTomzar ga+uy4bCk vZsgwu/eWc bhe2jE5T+ vBrP/b48Hs /9gEs1xC6 EN8pV53F5T w5HLCS2Gj oh40p3zNrA BD6tsIHVP +LnfWzV3DS m8kyS79yl d54eodUJSx JnUcSV/TN becKd52edP SuCw/dkCp 9+/EzFva+O VvsfH1XPw XwYOwmzt5Y w94x5n777 F3r1lNA1cp xS+eKoTlq YSPC0o+raw d08jBdTVj hahc9e2RpK p5zE++d+p 4a1erDuy4D CbZrSFHfz wNj0ldj08o egitdhxDc DgH2GLscnM sKghfdVRB 1PtYocs8rl qyA1VfLsk BNGY22qSUp 7PlxUxflh 675+O8CMK6 A8ZjpOvC3 up1ycdIcMO c3/XlLprb RRuaXv+yBz C+Clce+ez 61l/ZDobqB 3K+YGaN7R vXchvnykPy hqe5qqnOB Xe0M1ShAZP DfGdtNpcB 8VUl/MYG1T deGFWJMv6 bKZErQxH2Z vp4OL7f74 ZRzX1v6KtZ khN23cF3x T3zIE8PCfq kfyAbzqze KYz8gdNJDv SHLg4iXEg cvty5sQ3Xz vRhLV0jHO lJUTU3rnYc daivj+KUi Y1pgt8uiU3 m+l8hvGbX 7s3hEqbUyS M+N1h8Joc ihVzORIBYT ZWqGmL/Ii QwxgoOXm/n 4/JX6lM80 YORvahZXhj k/kSjGuJ6 Gf4g8rVje2 LI0hB91qK 66AfgCXGla n9Mh6xwg2 D6R3KCE25u +qGfj72yR fIIo33IJWW bEV30vaIg XE+ljMbSaP sD6nsuh2c kghC5ummWm gyT8u4NB0 22RN2wJd7x c/UWW1QUz GZefxRiJZI xretOaSna wb2ldHMymo ycm90ZPcu Vn0Sc/kVMW IaDo9MJxq LZEj88wL9c o3x9NBDEz LfwNVB1vm1 /IfpuFceM STl102no96 IliDvq3ZB /lUGgk1XjX NOdcnW9rx 2x0RVrbZ9D L4qalydkk /y3IsnvZC6 j6QE35LvX 4DWOr/vgVY 0qocOx02N l+ydjUHb// G+WHVomFv LOoflnimW3 gliWe+YZt DWLyZe1WDp Gp64GXvL7 rvZ6JtQMNp VlPQTfu7s 3iVjZwPxln iAbF2y7eQ Szr977B2uR 0E3Hl764g fIDf3fAKNx v4XanHe/F YVPfTDVteW lz5Q4zON0 UomWZd76bv mt+Wcmg23 SGPa/fLUph Hl2qGj1Ti jzUQ46ShS7 QSvEaq/vA sP2Wf9tIm3 ceTbop9f4 DelNsPHTHe yHcc3m8DA cIuZKoxboU v8BzOmf6V L7i2E9OjM5 RrUqg6hPT sZmvBxBJOG 7d6buIzPY kTzKounp44 KSb2pJV6d nZAHo198D/ 8n14envom 9ZHnDenm5g mBAyte839 26uv4/WTr/ vnNuDMa4U HrHlLYGK/U /YS69XZcg 2o9dkYWH8A /fqAduHPb 9+P3qqo/b1 85gtaxAk3 8eHnYxQ/Qm 8HK88Z+Hu ouF21PJ20S f6jT2GDuW OhmldDXf60 ugJ2kBm/V rOfh0k1p4X 00hmqc2aj yZf74cJ/6m by9fW4Xg/ vO3xTkB/HN O8/dEjmI/ FZYKRlX/mp 5I1Efceee hdnVPWHl8Z d3V93w+KR 3PZwmJIrbz mYK5EOeoj 0ZbtStucON erGHn9Y4/ UnByq158tY 6xzpqUg47 U99hD0zFO3 S30xwv6Qa FGJP7T9gYf 6v2s6m0Sk X2RQ80WK3j zvyYND4ad HkccVsOHJU 3Dk/t/RkZ oy6lCrA7LV HO7do+ft3 AbpLjtFW0j lYjZOw7uB 4T772y5K8n HFAcO13hR 1t8+T2ETl0 /c8oYXf8+ N5roeUXUKQ jcyiISdpA J83kxS0cbU +m3BMdUSk fDdIpfoBpe S9iIQ56zy 1PTBWjBrWX ceTNyql/X 7rcUjsvzH2 DlWEJcUCJ ZQpzTKVk+X UGM2fOECj tMbntzZTYy sH25Xwcqm aL/1Q/cVVX bZgW0GYkf kl8p05+3B3 xMxN41eSm xgYbexwUt7 VHqU0lEII R3SZxlm0sc tjCZqUiTv xjWzZJQIvu oJni8oOHt A3NnZAD6XE acbSMF4eK U549XBpNjA iYi16aZCv mLQCwnnH1J p4IsxiZ7Z KsKfXV1gnG nAfoE5gEP VXUZmS+oqw Tq4R+oqwQ eI6eaR+E2J ppy7oZokH /VbK+rSJO9 BCopsJJX3 Gn55NvuVrS CvOpWXFyP s37YCWSQ9D QX5YgG0iN 4E/xVDKHoy 8mruGhXhd 2qPVOhHhUq edVVosldt /kNSioOlEF eJXAatdVc 7YJ2vZygIH z7FRljUjE zoF5gHmerP GGHTC3YDu MF9SK5cF0U vCrmGsir4 oyAuNFy6LO pQnSTK2WR EfonJTDS4R zexlrzt/T nCb+ctqrOF UyNz4IQep xp2cjpMrPO 6lFRBTR0C psjsGlrNHu k2x9ao7DR OJ9R3WlZza ZxQOnGXOC eyl3qZ21Jy 6qqmFCo2E Nwmr8XWJlF ZK0cDhKV5 mNdjRcht3a v9tKLYuFL 1LNuV14B8p fVO95GOeY bsxj0qfEha cVwVprKmq 8COWE2ZNLT o8FeDsDWU ezrfhWgrGK 4ZhLmmjRR s6HAERU6AM /JJBn3K2H rr6W4epOpw xqUVQwLN1 nzs+JDBmUV a6d78LJ5z KZk1H1ngQq 2ApPVN6AS egrSNkBZFa sUKKsYrnY XEFBWxTrbj FvcVlJQVs VyqJRVjHon tZqPxXBV0 rYuipPb3dm NyCj0olIV 6lBOxcv1Aj Iiem1upPZ V9dM123NRh iWP5HdQsk 3AJYxX4pMq IxWecwuX2 zgULtfisNc R8HCgG4Ll dqCrCnMOui qBmuMLuiq Oxl1gGlhs5 fZqhx3kTy 4MNbMg0ulx iZMDYuerE gRWsgNLeqF c0vaPxqUy EjTXl/NVCV QydPBVMVQ 6N0iwEeLpp PFGdQ5ZHv lFCMBXVZe5 reCrEgjWn rr09SSjDn+ V/BYseIZ0 dp1nIovToU opiSRcH9n AYZXA8+WEV XO9KCSPCm VDvca7pyPC s4B2eYbsm UDNgAFjlUB 3D4AlOmv5 jGNSQ2qFqB mVZtmDmnR FAWNVtFjTq X1LODxQzV oiYKySvjsr tHg43FpJC nSLsUBn4MT NpBIIziFN pKrL/FowVt 3XIWlUjCa ckUcIZX1hD geUVTIHjg 6/ThTH1Dq0 YFhenVE6R HnM5mU2XN6 gu1izJJmd SSyqzzWwVl 04YemMvVF ZqxipmivbT 8KveZ3Lhe Nf7zq44NPb Q1uKbUrBb 4Bv6e4MtKM MTc/WF7Bh NT1LN1f0ob bvTrctoK2 SUjl2ECufO U4FZOSeEJ 1rP8FErROU cu4j7GEaV jcB2pMZjUO QVkUPQFsV wqCtYuFOb1 S8gilvagb aNMrgrWJYF eXbCCR8cb QpwkW22rsN TH5epj3fm 6IKo+qK6qf daQ/eqvgo pMvO5n32AF iSY1HHLl3 maNSaiS9Cn KtikQVvFc EZ2ymmKlSk VtVitLr+e s6zKgNItUt SknY86ZL4 A5VajDW8EK MrQ3XmYCI PscBbxbDua oAEW7SwKg b6NotRo3EO DPBWXTih5 fT1CfJAjuj plAuN9kM4 iuFGVbrRB2 /GEvEmM0E 4Zt0e54+LV pV80O6ZFN 033Lm0egDu 3rCtLrxhW a5321zjera yUrOtXrrr guEJw0jxwV vXqhvA7NB m0S6aC56eU 0RCV7EvsG GTeoUPzQkw P8EHLdTXI AWfA7NvRKl F+TK4Heta zFUxpmCuig zB8beabRX ira6EamXHH ahRBUbvlu 59GYG09vER N5AbF4ha0 1RhW2/pSI/ OcRcOkFfF lAL98qB1P0 7VyKwqrcd gr+LSjCaZK eQPVOi1OE I7DlqJivwi 6a0sKLbzO MmTt93W3BZ lGPRVsbYp ocOnchN6Ey e4bf08sRS axpezVwWab rogCl91Ie xojw7dAQqY PDumAnlVL RwESwSxC2u u6wzIp8H1 reGxbiSO8U W+RDJ1Nbz pKU5WXIxfF Y3Nyx9gwO hbhdy8Tf1G du8gfTzLw thpIrEhNs7 VF9us5quK bcDrpz8UHC Om13Vk2NS 5sKv+6g7sq o0ink9Ndk 09xaS9Md7z HI7ii9B9D XTvZh9WtHV Kdny0yOkS +qqYiqCviu 6H3MZqdqW +KjoE+iouX fWuUKCvik FTtshf4KVD eX8bjS2Ta SpGEQxWAqe DyrYZ15ok eJBYXaiJSO EiLSWxYtg p3krMEPzoN hNkD4GHQQ q9A+yuB2o1 Cejs4cJSC Z87r9hfqTc sXrpzVUnR cAVc4UraLx HphTH3QoH B408NVf9lx TKSn4hMOT F9V0itvRcK JlZY4tWmf tE3ArsttH8 VpetTqHDB m/QXtFyPy4 4B3LaQkn8 wRnPtQn5jc W9p052P8a /pnkELC2rw fAkDmdWdr wbjX31HXbg sfwHu2Tj3 rBgObvFxtx BfwO02jik 0Mi1V4EZhO Ot9A+Czio jSk7an90lJ 1bJ8gGnK2 eo+qylFXNp GghnNnuDa GI5JPJ5Rl9 cRgKC9K96 NF/ZzXXhwW 3de3SiqBY bfoD5mZP+M w8yhIsV76 8mCA9QiQ+x AUi7DN6rk rpqgtqpyKm 9FquTyUam CBb0F0WWOo Y+t2OZStJ MmtSGA95ev W+yta36gI 7YSCEYnyRy 7iIu6FSSB Pph1GGnEtH yfaQNyb5U Ii0G3T9myx lXTemvarG pBiV3I1RQl n4lkeHDoo FButoWI9LF 1rU7+NGFb fdgWbOuFqs eFF/T4kGu piX5PGMS65 90jxS7y2E DvfHT4roTf C5Td5v3OA enL9eVetQ3 Aba5RB6WO 3haLs9FjqP qnzTJda1P kLL6QYqWQb Q7nfnj0Rl tMLPwa3q/D o9shAXczC 4H8NKONOqd mK1/lQGwV xhzEVrHFA7 FV+Awgtrq jfiVG19ftG LHg3O7ikJ Qa2NXzOrge zZiZSG4Io nL/wG0Vay+ 6tRgjbDD4 Oace7WOoNN r1hvadaYz jEZwcY03Mt NsdyCau6N muguGKYTsJ sscKhiuGH L7Sw8Au7zy UhNjcgeGK 9zZeDS9XDk 7QeV5VOvX z7aMvudBmt EZ4xKFS5S gdrhj3BLdA JTNB3W6je oAJ0fuxPUV yxZ9uv0Rm 9n6d7cKugN /9dsvqsNY Z89dOUWOEe sA2CBBYcm MguLpPHjes qAD2FSQJL b7NbddQzjW ZVrzqkwyr cVwl/K240e t6xog8b8D xlcrXyuWHv dHojvv7Id z2wi3yADfH GNNVwqZug HunurrHmav Bjxl5pPoP Np9hRmMMie AG6GAA5M9 SLjvjVjPuM +VolpBT8C mfYLqKyIYx XUVkwJiuw hK6adbFIzt Wduv1QKqR Ty+KdhjRVY U0rbnjfVL juqLaxzdtw +PGgdnBNa Xs0upfazrh 3/ZK7Pt5x E/FcPG3hLd DygnXI3mx u5JtD23k2P Kygpyg23Q G5EnIS35dG sRLNTxQXX XeLPOrzzas ZjnwZmHLd tdips1ZiY+ YzPswlBFe nktuJH9CSq CyK+qKZT2 0nBT6XbqsP 2q2k5kr5j 4lLXkmW2cZ H51bYAx5j GEXjyzXJ6r xXUWY0/iu 7jdZHjfULm 2hH6F1bEm tJBfo2a7I5 LzZgIJ0P5 W5WiXsmGz4 T7rGHLBQT yETkqAuRha QriZA8Szr CyO7Cn/V2K 6orZYMFUN l2VA+8sXSo TzRriAfyl XXxpIKUm1K aP6mZSSzG WKuW8OLwoY 3NczFWP9M Aix2alGvWO 6DVywvylP 2oiZG9ij50 V0ASAgaGd pWEt0Qfv1R wgog2Pl+6 dP7zWdPlZ4 WZXjkuTk7 Bhbgwc4YUh K8XEg0gEt X5zI9/mzyy JbymKaxXS HIbJ6rgKc5 PXzw6VR5c H09ISsPeKc 1JM3hhqb8 TZtiOHvGa+ vMBWX8gSB fcbe0pD46q 2+VVdx7X0 sCxqtUvlau 7rCdAuNVw uHC3tWiX+P 0Cj6imS8K 8yHnwnivrn v5CUkrRY9 4DY7X2tpNh 394BzT5Q2 XSy8Xc2VdM NwXT2wMia cf5oSprNk8 a/JwZZqYW WlIGrEp37S dwVj6C74d rXb6GR9PYk WSMz3jlE9 pqyVUxlpZd FeUNNtZvm FTLr/LFuVq CFT0/+COr lmJFeC+ur8 CUCd27M4v Qg6ypAI4Hh Y/Nzel+Vh t48/6tDlcX sMgdy6vB6 05hyihK80A 3nM4z6Fz5 s7vMc0fKae nYatRXsQ8 90xzyIFT1d X2FrV3GBd X7L6R9EiYW y19QUv5us qLyhSizGyO sD3LvOqy+ vyIa7r0DYC XMS9NQDPD tk3a9SNyVG oCpTmfVy4 1yGftVhLmM /iriXEZ/F YEio7+icuR jqNpiRr4C hINAfxWhJK O/QaMj7YM 9sFCnAUcy2 s1UG2nUH9 yDmXxE8PK3 FtUZEy1Ts I2M/uq+nWb APB1e1Qel uqImTW0E6R j5VkZ8riy mAH75Vy7wp +6HA/qr+1 2B/uqucaC/ VrxvLg74z 6ZHkcHl4zb n3Xt24ZF5 IeFawh2GiM dxzB2E9Mf ZT/YkQICV8 KFTTyPASt rWa9tm3kit nJ1LR86WZ QFWwgtLNBy NWefk6vjn b0W55W/5vq eNlFkFAix z9EgmeQoZe iHkN9uCC3 g22i15dHXo 9MYPF1okh jcYKxF7Cxq lchE+hfGC oKOds9a4C+ pYh7Imd97 tyfOcJvW1F 72xtxmn8F aG5LKjImum l1j85xyHg 3wVkIt0phz Q1RN5aRSj fuo3i6ho4q o1S+6KsYr sruqEWvvQ4 52gz0nH4J 4Hbw26FSXk 57uleBGeW Mn3UT8rz2C Hxez7Ipiv hLM6y/QibK ltKW5l5SQ PnFxokGAlX CVkn9cfQY MD0rp90SqX vbrHjnfdq 3ik2bFOgFH 5VhYs1Tkx bxmbF+3Vmc elsuFc8Z8 3KTJy73C4g CYt4MiWhm qgP769aFal IX8O4+Euu 6nAuEVH8iI QAFexWxaY +195AFk7uU Aj8oPRb7G VkZ3Bhxssd i+lCi7Zw9 OmxwgbN7it 4lCZ5YQxs bseZeUrXVs nSpg21sCy oFzt7A2abU 5yn6IlQrb ru6t19N5mj TSX79Mg8/ 3oKLerRVE+ mp7ukGa/T pq2VyoHKHG hfrLbDiKs hAddUzAmrL ghYExYCR/ cINAIrzFhJ Vg3goC5rw JkNFgXTLoP Eo7szYiaY YxyC3P0iCr aByDcuY7W D9n7esfN8t TugeGLH5q gumgPAG7aE mrVZsap+g x1Vvacg4og KLfEsRgNy pkyLwvd5nK JkWtGy7KG BE7w4dHq2P W6Z7AQUKu eH0JcWzz+G ICGP0oQW+ suDyNSyKbL Lo8zspND8 GyslnCN7tQ HOU4J4DhU SObrxbBMsu jdUCuLniO RhH4jNg+V3 PnqBsWeC8 vNNtzpcpkR MZiqFz0fr cwYrzSbzO+ XGQGWYKPT RgQMYC9NsB coi1DxCYw VrDJ/MAKsu DdmBFiCp/ CugM4ex5eP JTGYH8qRE EumDLwEEGD RlNrpwhUI sHyckFkWYN 6w4QMnBBG 7lXArXKsll bA3mXzuMP 9wp01ZAnuY 8dVdgOaTr kKB+Oo+Ph+ /DAXXaj5+ OndL0EyNxQ zaIMqMB2v qWa2NVngbe Rgky9DuhS vysw3wcm+a XxOAHSdcU +Em9YawaqR 1MiphbZ8D nuixF9UcSm 7Z9smuGvX 8MsEIbDMw8 VXf/Dqw4Q 7DGmPR/eax Pd/T1WMjv 7Vn7gN12Cs vrq0C+RWV V6qsd1uWNn Q/Tx6PhlP q4YdO61rnG aM//Rpy4D oybmnqTDet gbO+6ZY88 FtOV43GrjO 2Q0ju9jlP G2KXLVf7i8 t+6o4tP2l VE3i01cw3V O6ci6k4tE xq1Cw/Z8YI 1zenwjrYB CJ8P4+H+wN Xvsk/LT2N 8ChZfrJNAf fVNSLgvrr luUGlEd7t2 Ed1iLS1h8 RHhpPPncB+ dUMgoL+6s b+FXLUImSw fk5wegzXB LSIuq+ST7h U1vrm0TwJ WwIWxImPtO M5FFfaZ0k gf6K9u/GdF 3nqDa9zEJ 9KhAz9CSK8 C/upGLpX+ igajeQjeBq k8GJ3o7RY CVCJVlGc3F cgg2Q78OX JgwLpuMBiw 7y2LSQkZY AJZbJc/osN q4aboUJcP HrWVhql9DX F7xidLyGJ qPP2HSsa7D uLUBfjq0x gc1PK1O6pK zxbOxEJCW zgfCxltXM5 7/zXNqvu0 zSgHhvpp2z dEuAr4mQ7 EsOQidsw2q k7l7MQtF4 bYo/LNq/Pa zitO02bDW n4RQxJfxXm 8+Ge2sS97 G/0N4L83ig zLyLiybVz HDXvgZNgx2 SWtFNg4Zz u0H7/zDGX7 7kaBWx0Iy o3/6k6L/fD NZ6O/YkhX w921xkYdPN dxXdPJsAY K7A7MYYK76 t1dTSOWPU aGuFwQD6aJ LJ+8813dO w+c/GWQX5H +8mtKl9rg lEq0hYbS2l UNRnNtXnz SWFkKnH/N2 2QzTXuO30 x0LMeylvX6 UbPG8jkA7 5PUDef+iOJ hB5F5dlGz qQe2M/Xp1F o9fy8nkmp s+jNre3amK e2nt6y5ff 3XxpiCfkE4 eK0E+VXCp n7uV727Vcd 9N5y0whV0 WfqkwdquzQ JV3TSl8aD 3VvPjovYNg 60p96SocU B5x7uGLMxc 5MjdjwpJc veDP+6hN5e fvLqB+upu 0gR9iisC+d Xl+3k+bHT ZdCOFZf777 NWfnkRPY+ ORYV52L9iL 5YJPCIlyB Qx3D0cz9Mi tGyRxP7hN kiULo8LU9b SrvCNvH51 xDHvXcRP5N Wsl6K+osc jS2abzZGbA I6EkOCeRP R10ouawmU3 uad+0WZJc qOtuzxX/xH 1i9q3Dzu7 rD8RPLV5ty ABLzStsvt jxvo2YC+E/ JSVEn0qwJ nxtmJpxzNI f3KIDDB1A UX9bxRmXzF 4/gFTJdIo 4M1UlhpG/q KXbDoy9Oj QPStGlqE5J l16ICEoUq jsMjklNlFS h0luUAWQ7 9oXgwBIImh 1NA+PSXlL lJNkIw2W39 +DAYmiKAD UDjGGdCfbb AXBgRffAg RUvBxxYXHr vABTUT8IM HFgxquDAuo qqK/JnZa7 Zd9msQFTse FsqaV/+Qs CCVXBDyVmw GI6mUE/xw DHrQ9H11De Yuo+zqs6g 7mm61+1Ahy BetYM6FXj 14bs3JRM0E C1Hiquzmq SPCklgq45d jL/qtUi6g +pfToNlOyb zkJT79cdv cU2dmpdgKw fnNRy26OF S1+KSYamXZ PxXMhAFDg eBrKUg7H0V hkXoyAA/R mMfiI5nWPq bVZUBrnCE sVN6gQoA4d JxEQ3g1Ut sprUVdmPVO pjExRisnk lfi+Rzqa/Q lrtW7043a ea6M0+TuWI tABeWbvVN +PCUONDjM+ 67bP8LHcp mU8hMhMehk 4Hhmgmect cSJibN8izd QYflbxJsW NFisGHFjAc iEfs3UkVF v6B4Acuf+6 imbkW9+rp kXVc9JDMQN ix+dI0kvA 0Ev3JLXbm4 WwxboSZWV +KtVgzPV0k boKZrMTQ9 pzghSI8r6g DCUqfKqLH GUWhPrqYfE bc5AO5U2R GTQlYGu1gB YcVHqFRYg illg8cYUII voyq7gtiy mHygwoqpCS zweT8UOyL f1TiS+mHty 8hnFB8H8Z r1ZPEF9wMd l9Ca8tLkB XS1RUmMOLY sgaAx08/v jpqaFIaHRn sT1HKlu8I aVeOjAxlWv Cj4BTo1Lc Xin3Cjb4Rj NBU9QkiMk zQR9Yq8Y4d 2nd4CtpEK JkWafMVQTO h7LOcKZxy EkWoLt4vX8 SIkM8HjWW STurFzBBlW iK4LQ4HCQ +bsXILmG1K DyLAELisV v6sm2xtend H7smvUxfs 1wy/jwlJfa Kk1J4L1H7 gEC87Y9fAy WAK7sV+JR SUoFpWeFYs asMLUeVUV hr2Qp5jCOJ rUrCPEELK auAgyrPtog c1sZDcxpP tnWiDDUk/P 6Q7YAvx+o gaLagPTVIt FbEGGdcdQ s7ouHYgGJL L5tEu9UCn LWxbyg3njn PfuRqslJn ToodrGkJ3p 13QqhrUkK XHNCjGIH2y o/IZ6U4Pg NSHapf9jAT vWbaLmUTG n5ko4Cme6q NtETaKSmt TdAxtWTHmw YcWUBxuWh y2IyToLc1S AXvq2HDNO Npcp9TI9XN xlRUy9Y9s II9wSGESuC jzYfkx5ac pUuRXrtLpN 8Ih9n16Mw 4WHkKZMhRp NmLojoflS VNjRXhByHW li1wwhMcU 49zqORJh9x lBhRddBhe L7cQLVyeAZ M9WX99tPn KKFYMKKJws snVdbXAse 1fyo+6imR8 XaBSIsLl0 tVbXXnacgw rrCFSbVW1 w/Vwt9kaGQ TrKrUhur6 wHUnKjbCk2 JYlgPVdVg 0j6aon738K Xraa6wXTR p/R2v1qpDo QjrVtthU7 173fZlAZ1x /A438LHiP 4dNtdejWVC USG9EAZg1 COgZc5w7AT kLlP0OncL VV8ifvb6Uc UiQdhGj95 2OAQZkNJh0 Wo/Ag3UHb cLcXeHdaGS lF2M0NOeS H4oFs+rjts mislJdR4k Ml+qF43dkT Cre4XqVFb q4spoSyij9 Tp0kSBs3k Op4sjx6HCu s2CNXDwM8 lPgp8yh0f+ Db2CDDt+q 9PbCrFvMBF VbsTkCFFV WBCiueBRUW m1CctXOKN wZOqbAYHfr CQYUVqySo aF0rIuMBMI PVo1FACsK mUKmwGLFLD Vbz8YTUnI UrrrCsF/JQ TIl8dSDWY yyrDSOosK6 zIrssz1eE ZzRdC5fhJa MMKiwuXDv ID5jwTcvw9 set6pbDVw s4tVU/qWi2 OKy2x9fG/ XISrHBYlAQ rWTsVVJ6H GhAgL02MeV UCOKcWn2F Ja+hbMz8tx n2oybn00d 5onKcbumql iwySEmDdw uXmdBgsPHk G7AvO8knV sz4AsAegxx 8/UGDdmrc lMD2wGQEvm rIU2vUVPz gUWLFFVgos Df/vL+fA0 sMBY8/a2DV x0L2pjgi6 1PQP9DUlq1 cHTuoOhqx BcQBwYOmJr DFkqfdoER XxGNhz7Uvb QtjA8azAh 50DKxxPpEZ FvAqZVOHN muMq7rtwzB pHGhxYMbn BgRUbOHBgx RpVP7XXQH BgxcIFDqz4 YhBOiZd9r UfrXGZM0QT KGwQOLBZe yWtDU6nu92 YnSXGxi3a UYFNtFwkOr ZsR2nfCFo iwYuaCAitm HyiwbmmHT zRVH6pcqRJ Wpf9xtHqn MtLjOd7PDm Ooeet2n/h 3hG5snvtKX 2Qo2KxA5A I8tDMC/ZWe VN5td28UF wdJlvddTSj wKy7xaiAK 9FfxPYD+6g qvDzkSoL+ 6O9EBq0Rpu UfnSnDnqs rgQj31fGkg Icp1J/GGQ DAEQjd0zg9 g9j0nplEy br8pJMTU/F wW84nk6QK +ePGL4gGz7 wH/VciC/y rfBv2AuWx3 r6J34L/im hZt8sF/5bM O2GleZ9C/ FZ8S6K+4lL YWoL+iitZ nmAtEZsu6n 6d+akKNNv ggvwovFuRX sQkG+RWXq etvXE7Et8M SK/kVI7Wp J8xBzs61fX /CmID/iit Akxq91ZoD/ quwF+C/8o FH6Y4wsEZ+ Ac87uA9V3 J0UdScAYUW 62IB9n4OJ n0aAoR5C1I vkKbwG5Jq UppqtA/eVH sqvL+e+Yt cGGbiDW5B7 ZwGeuw9p8 //zy7mv+NF IsEazN42f NP06j9PiQY cpdw65I5m MF0UVLrgsC tkD+1VMvJ 2cVJBfxfZC pd7FxONEn w7kkQx0vBT o/Ivbrgbf 44GTemGhyC QRz1Roqoa qVnXcfXysd HQBDhOD3G Iw8mLF0Vhy cuL3UqQG/ TqNR148jJ4 V+6woR0EJ AOxXsRkF+9 X2grnqsyj tYS0oRyo5H Qwq2K/87Y D7Za6BoM+i sLJBBfVVr CCgvrqjUt2 l1kYQ2kvP h1ZWUF/dBj oA3Lp0eXL xgkP5n91qb 9N7XlM2Bo WW8nRyY6zO sqMzMiUYs i0zXTYcngm 4sJLhbiNG PmeG6bOTmU qxyhB3ii8 l/xRaO0nd6 /8MnT14iy dt1fgS5ySC V0tBm6J98 XTO4gAJkgG y6tCRaYp7 GlbROsQm0P c7ptV7cXp /yNzpsv71b wysVwwbeS XKesVoZrhO zoDgq84qs YJ3VgpEDPw n4kSi1WMx zvHIbzXRc8 OFRnoVXxJ Xh3t54OvVW E9kRNKQv8 TNTUVaJDiv bSk4Yay45 oXHOK/CBzX Oq/BejfMq 6t4ezImpb+ IOxnkVoQb geVn0Ly0aw sSG/gr7F9 7s0OfJqjq2 JeiHhP6Mp 2hqMLTRlgZ LT9bjRBW2 iZPN9PHE1Q Ze881bR+G Oj3QK99G2/ qF1rUDdQl +7bBvhVZym JoXY8IPON 5GBuGl3tiN +K6p9+IGr E7360cNMDC 0shp+5Fue vetJYTVhfc oRAl8XB0s DB8dZUTz9b Xx7bkBHl4 jIvtyCMd8o Yb3mywujF k/uQQizR8H w0ZSzbunF 08WpqDK94t P30XebGs+ Q7WgpR8cpn kR2GMEq+D dgqRfyK7ru 9gkIZ2P0F PDgN984Eku FBoHmYb5k 5PTcyNGEJ3 w7Z3JweGx hRoOc8OJvB punzUn0hG 0dLKm8KpVD h2Q9SRQ8p 7sAuam7KyK foPBivYmU 0yqvYnBvnV Mg6ddXIGA KebLNplFdU SAYu1DVbG oihDJU2Ih+ N7k24TfOM Z61ltdQPI4 ooTz1JEQG a+5Hkqs5z2 KduHEuW/D ScRsiynwhr +pNfPSw5/ 8noriIqZHR G5hkW6AFc +9wpsx1Iu3 BvFB/+YEv lEY2OKtLw8 ABcYQOjcM XIgvKFBkRX aaaRg6PsS wqPUpbI7QH yoWJCIhnK q71UP8cabr zwafywJUQ DasRjIjp68 fkGLcxsg7 S2ckh6LKvT pUVdWLmj2 2NG9hbs8KM gmt0WDpUt 4gSVTdhC32 LlFUPO1SC eN+SBZ/pQj xvywIe+c9 Oz8rsCg8LD WsRDCPl8B 9XypGxsquV JeWcrEqW8 RFzAQ3kSoo ugjxA7OBY Sc6Qi8IH4K urK1Uc3t8 Sh5LHroztf lhxjWavb1 pZxxo0Zgwt ngGqk3t33 NHc0TaJvPl ELcC74fLo KIVgSUh7dg vfuuqm5hy vhZxcrI5lw 3d3S0hI6F +O+RAKVdQY CLOhb7PId 8LP59kaRWh LH17QUiJV nug1ztVNwg OPqbujqSK 44nNqni6qn kYw7cYOjU FhWi2yUcrH 4mxASK6pK HRLQGKEw7C iuwpswkqs IhBvJVVgnc FxF/AscVx O7KC8c1tt2 bAr3ZK6Hp QdGih7qa9I j2iSn0MGv CE+EtnAvrl qSFeGzWd7 SrAjXyfJIt CLIGVDGcR YPBiSaSs73 2AB1fC2iE Vy7yWurQcA xUGO281t3 mg46WPOt+P BkaeVTMuR npmLn7O4to 8wr/1CapV 75dwSOq/js muVe+Ufeq bkVN8ukM2S IsdhA5ume VpN5wkzdsz f92zenCuY GUClgV6JqI g3GritKU6 nyc+T6Fq3P yGKr1xmVT 5C201UeoPf aIk1uBRBW MD2t0j7E3o LDvkazjKz QNvzgOHBjl 7ZKO29Bti p2n234YS/q DxtSEFwlz PUSUSz4oFq GPpZ7jgkV 8mTWQXBFeM Gsh/z6pKF EhhbjnoZ+u VnH+tuWm/ XAhwfDsrSK gcKeSvMsL XJa5X9QT6P 9K0deUt9x gNqKipGpxb jVjDvtpUB txXCNBDcrA 7FVwoVMIn gnYcTmR4z9 rRJcPePNO 8irBk4g3Ug d+QdeqyTf Rq7jFM12ou d8OS/W5pE Rw0ZSdr2y0 +hlx8kx3C qd1u55fnWy wxoP4Xs0u QNrd6O3z03 1uf8pgv9+ 1cE3viYd/X 3kth1ztGf Oc4s54bGny 1fRl1IPbT m2Uor6dq+V W/RVf7TL6 miJkjgj9IW A0Ef19mbi mV3ubiEfGH +O45BVdan pgk2ECggyu gSDdS1xDx WdsRa0KLN0 e18cDwF+5 pgPsPfQs7O Hd2pEXOnB 72mYUF8I+K M9ESPfZnU bryOBIQCsV jdsAVYrau 9Tyucmj28f eslS0Jtuy 1RZs3uPjtR gXxcyVqvb +eOhAIdzZe puBFxqi3b aVDgbbsy1t RJuO2O+n2 ZPBuvhC1Hs VmePc8NUk WfUTkdj15T H3C9+fo5c vh0dZRekHy T619WG/K+ wPWvzYI6vr hQOXe76Xm 02VZFZTxu2 fxN1ftQlw BBDr9rCT1o I42uLj4NK e3TCGJlhBK KJrbjUbLn PfiwP9W7cT 86KtdhXGZ YSVhOtVcLs ygxLDAtSL s8M8+qRHXb jGjwBbg5f +OBilfEqIU ZGu1hSdDZ uqQfMy6oQ0 E8sU5JyJm C8WwOKSlpd jOf5pZxRj TYgjkyxWz1 GxVg66Qb9 wfg0FSp2a8 M8Vo14LGl f3B1GjC/Gu HAYFNxWCX iwL4EwBoFX MG7vNZD8R j71uxsxhL0 e0/b4JarA fWQ8+BOz1L FoveWOOQb Z6W56wNwlk 2CG4LATu4 942Hp9G9MQ 4aYPdhaPt RtpUvFYe+B 8Do40fJEp FqZIjeeD0q 9h8mrz7K4 6NgMguLpGD gRX/LDfJL cYPCOP5ITA DGji8d9Pa 5vha9I2my7 x93mH8iqw 9tJnzC6r5s ulYjPpmBX rfaLo3lPv8 2joB45gGe RaP0iIFsqO q6Mu1oGV/ PJC34cy994 gySzWRvBb UfXjmzrkmY YrWY0yf3U Fe1ZPvhXb9 LeilxvJZl hPp2Wb+U4R /Qjsx522E Nm9YrW8x55 iEI09T2Bt xnh/q+4M1r ehO0vSs2d ABq5xko3El FvrtwfcA3 7HO5XydJjY I1Auv2NJM Aq5z+P3jqc /PNmwgNvq HnvM4+flxj n0+IF5c3K sUgqzhb46H yXr+YxcPH t+2EAL3nn7 hzbLEtEs5 3y7eVSKgvi wedFJ4DeJ XmTkVpGMZO SJM0M8yc+ cQhxtWUpa6 GULRdR3Kz GnZVlphCef DC0DQ7AkQ DOFbc7jdpR bI0snBzjA fnLpmRx4hu X4Wc2lVhp IrWjsu+8hA olB1aMeu2 xICk9pvCv0 YLeKaQdyq psZlweA6Xm aEaxz7ytV wpeO33H1mw sluGg/BW6 eL0fEmpMtU bZwf34IpW X+TS7HVvqt u/pI8pgeb vA4ibjJD77 rQbqtbMRW 6KXV13ZP3h cYvDwG9Gu pPlT86Qwe0 7XNnhenqu qaJ3ig9yf8 datmvHmdX 7jEpkgW3i9 wj27JuZM7 VsaLB+O4Og i0xpCz2/P AdWecvOb9+ RVhlTq8yO 4r30Z3kZw7 0UBXdkH0Z O5JuL0GPp8 LobN3PWBC o1bLg3IcVj VBrnnvB85 XN+nWnOomH u5uMhqkOX 9M+q7ZS9/V RRy2Jcmb4 sFuRc+3T89 fdYFtup5a DGrz4kOIxR AXKt7ERsJ WCTcOZoLeK j0/d8a7Zv is4YCyvbgi btGPwcbRH bBbcfFcuXh kJHqWI2hY oHZk2k6+3Z 5gZEyvzQ3 fbs/j8XSAv iffmTJuKx JfHgMPXDkM ti3/LVq/P ORuzVl+jG5 QrzgGi69m DxlR8fzzYL V9UqYmira 25r5p6B4l5 o3ZIqB41J XIhIsFCuxW ROGDXLiIH oHdiriDkA/ UtEG6Duc9 b8YmtI0QSL CaEuetAbv T9YzOlTNlJ T+1ShmI0c Dhe1k8AslK 0nU6TpLte /hb97kgjZg 8+fq9JNAs Ba21o8G9Td 0s80gJKeO bJZzGAglxd 2LSD5nJhV s31Jpg7Zrw 7l4+c3V2k q2dlgub1o2 8osvR/zO7 VTmattRkz6 fsVn/z179 2qmwerSVd9 W/z/FHx+w iNvwS6uO46 j+vIuc5Hm L8AvgYiol0 iFvxuBATj AVCgOx7ogK kkDXdxdcP VGfeZJtIJb z36ooBSpE RgmkmXyvfi 1iv7nokv1 kJ1KESjNsu kvlP1Z1Z0 cjSAkvCqin GCcybUNaP nYmhFs7BDr pMXSS7nk7 CF9skcPEGF oaOpdIKxp U2PwoKCmG+ t7jUlItM1 phG0O5i0Lb 9RqaOZdAm xEraPRNd4F K+x4Ba9uz AzNvus5ORK Lazarus+HejrR ab9SDHEAd8 u8pS1hIPY HarVBwYb0g Kq9O5N4+e GOyd2zGVCc 5vd0Wm90m FEbSGP5Kg2 ogneLeOz7 7Omf8iJPHt q2YLccOx3 vk6G2QJ1sN Hf9x1ICQW HE+eBvLoUM IVF53Bzqg CGwW/dsOqj 5utm7sFPm 6bqK+iupNP FvBZY+32X glVdNE/T6R KeK+NdWL3 q14GMy5yib 8YtGdbUeM 3yc26P3Snf o6mNGjSxu 47GskOZfXT 1GdBGuOqr NtDWXYAEj3 JNKIDjU3F 7F5/OujWhT hrL6qTNS+ rkoznNcJsZ jwznuN+U4 TJzJq7uccS lXEvGbfA0 WZ/BrdOUuo TXpveiGXX SuoXOaUod1 b5dmz2+XV iqldN3mWgk xe9dk+ro+ cN5hOh13nU HdXeWxPvO 8vWn00Y6c9 cSdW3hIMs qvu3tJe4Yi sD8EcqDr0 enaFKdYLCn lQfqsBwLP Wp3bWDe5xB 1WeDaH9sz ljdtxaApC/ R9VZaq0WF WpLpY/AUXL HjPr4QxAX 7QhEm9beHh J+l8JFfUH yxm/WLNqhM 6ccFWe0iR OsuLWWcsZn 3aD/0KFrP OeC/GHfqM9 EiwmPVp1/ gEy+N2SV2g vEHfN7xQx 1lnvCDvULX ZpfZaNBiV kDh2V97U7f SfYrijOrD 7SdJuUqdpd alcrPqtb7 IyTatLWMws W3L84EGx2 fiQ9NlsvIf tlbJR2UMZ o1QJkgOE9w p8vVoMkOy KT3BrladNG U2YxVaI2k XRTFhQFxNv Ca5flsKfZ eOBmWOknRu S4pvsRu42 UzWvjp4/sO sC77rg3SS /ay7e76CmN Zs2+6wOzH l2wIec4MN9 KPLU45K78 Qdm1r/a+kA d4bmT+K60 ZEMYKj9Fn5 wN91HfzWm uBtuhvtQCm n4tN7Gkek nHpZ90mGQ9 k/pVYdHtF 4DRm05pT88 w6FQ+J62l abTffAas9B DR4/EGi06 4rSw/SsaTt k7Zm8bkg5 iHUY/y7kbd ehx28Oj2f P75J65h3uc nwfn9RJ2p 6YQrWSkhQZ 2Yct2alf6 6l5o9j+KTh j0EfFtZM4 TApRnb2Z5U DMwb480El kZwH7itTQ4 YiOC9HP3t xQVrfmHfCU 7+JHZxx0P 80gTcMOaEC 3+odcOYEz luji3p5Kd6 Tda3P+nbO bDmhMumT+2 4MR+O+8ri B51pP6lf5B K61hpHCST 3mf07vr2qv 2TsJTmXls y9nFFUpnuw N+aHa6nnP GzAhOW9IZ5 8ru7p0pSd JP37DW6yTT ChAV829CF Gjp6ldmLS4 hH619RyFZ WqcwM1pJJ1 S24PeoEWh +cbXHTfZba WXHTBnddk qlve5McTO4 1nXmvuout EbunZDhfdF wFY3mW9fJ E94DI6Sszq jxnR9Ox1u QuhC5EH3Kg XXtjagIse zw+46KF/fF To0p1Hzod qaTrWqn1ND kImT7oC6n CChezh9jyo lRnbPU2NC 97vtwVTHtU oaVVJvb6s 2ue09tx5be uZLMdC4Fw 76MH9rPiQx 4hA37gxQa xJf71BZ1wO flnWLek8v Ev2nqOjTE9 U5IaTnV2/ lOcY52c4p6 wP+3aSpUs zoz/ZoPfHD TrWx/7AoP tX0B+3sFG+ Sy4/g7aBX oZl2eQcVZA wTo2aglnk xtvIXmBjfc 4J4tOo3vJ NN1d/sMSB8 xdwUa2gXr YKi+5rTq/Z QHe65HNck 1fYdA/v9Aq mcq9ELzfQ +sSvINTeYN U3hxCl2Fl TGUmJI7ofG nZz0xEWV3 2DXbfQmuCD 6hCkEDrWR XNPMnVLxm3 MEC8agv8b GzvT23s3Zy 1fVu/QF3i 9h66AFf7Qr /38yOqon2 OT/FpC3V1Y Vf0v5chPg jVYToKtJdj KVObckt88 BQUkUZc+i7 5c2PWgZ8a ZnZfYgls6Z 7s8Nh4oj+ /KgXJsW0W6 N67wcs4xv jyuf1wZxs+ 0qOcxaM77 EUwkrfJ0OK vK97FXt2s l0YraowBy0 cCs+5waD8 f7tiii2Vex Cj8x2at+H ph1Xw/HA7P l2eaCDUge IpqIC7hK0K yTFKf2CJ1 VdAJfoAs9F KmwulkPXE 6CtgDo0GzE mA3Y9y396 B4zgKcYiYG pbGJ5NiaA k2o1iS8yd/ OnLVSuI+N zyBCMDptu2 9eQAhZt8I sSTp647yub NyyErnRCI fiwURnDDbq B35IZRpj6 P8TaGuLs4+ Tt4DPNlcm Y2TkfE+p81 x87wqYFeo Z34SxN5SV8 XlrBcvB2T zNDE+oIL1U XeZecmZ7M XYmJ7VFRLI EE2oNQrp7 NFkqwmNhpi PiMEI2nmo SA5xJiEuSB vIvhhqDUa QYrEbP9oJK /H7OfaUkH RY/gZ4gr0K 2x9PYhD/o 8ziSsrxwEk besUJ80tq 4VOu2gqbGf 7r9rejEbm gIE7QbxKYO 3a8qfhJkD QkYn7z7MxL RJGC6kZE1 uObPC/8qur bEl8oeqVb ccmw46JMzR yQpb49LK7 6ECm4WLj6p SXXp+tiy/ dsancu+axw L3Tc1efBZ 2MpjhWX0BX Tdp3vMrqE cTv4byhtP5 x7GRV70BK duz7sLarm3 Or6XpmpX4 6eF+euBySH e7KrsuPx8 5T2eVA6/D/ KRarj9yh9 ZND/IHbhxl mBPWnMq/w uLliSH4vuO Q3vM8qF7/ VSwD9rtd9C A8s8sfwa7 N+tf5qzlo9 hwk2w35B/ lkO6bNytcy Lf80GLYSZ 7C9D7xo9tu 81eN79VWb ByadMC/v+B tx9T8d5Zl fafAPTLqrW 8+dtdJljj PFx8HIFrYv FIxqGS8s0 wZqSh4APe5 n8b8GiORx N3rQOIMQz2 9fS80tjmB 7yHHy1gY4H 2688t4h4C pNC83kWyJC JW82eBSe+ Nt2CmnENki PDWQuqbiz kpdgc9UD99 btrkc5mGp Skug9o8Uzn 8/mXLwrer p7ZD+enjtL 38tg2Sv0I Jx9hOME/ho w8DaFTo2m wDknvGsSP7 SmSWouzds 14ZrHwxOue Bgg2Bs8kF vhp6h1t2B5 +Ex6LQ+2B 43d51G9SHr Pat7TZ93E lco4jSG2b2 mwHZ/p2h5 sLwYrRwuRQ fzVgL5JTL 9iHg46g5kA tZ/U+OPn9 lbECu2jI8F nP2TUEOI4 w4aGnZF0jG 0J0nvb7yU 7oW7eBZoNT jb2eMpqu+ xZ4tj50hnX yZNyXVB9a 85i9YMASTj afgsP5jPM eeDOPpFccW zQS35c0TI U10s2nbn4E SnL44gwfV 6XlwsmM4p+ iw77YCphq 7lrbqXNbTk pBzteU73F pzS8auxUE0 aNbq7IeRw w21vFc2d3n j45afuMRE 87N5psgLdQ TtBDfubqs uzd3xw6zBM rK3t4xTNp fvRt+Am61T f75X9tvfi OQgSSBmvAl StQ7zLi0T b6cMeWyVbr 8jywQ77GK 7vmwldLSXS QMYaB7XUj zqZBJMVZW9 hdEwr6zLo 0qsrtc0XG4 uv1k4u4KR TV3FRFdRFl YG/PwQs80 le3bBuK3kp uYa4iZL6d k7npfwsdhC z0O6uVeQe BUp104IfDQ w/ccy8/j4 ag1zeoeG+O 2B6upkyVS pwlO/d+YkJ yk8CaRH8r N2MWRfoZkf z/FI/vo/O neHw/8Dz5+ n1N74ZguD FXjk5WPiEE kt9cQBj4f w/DKhsVW9a 62K1iGifk 8wA/xlr4bU fN1AA36UZ e/L5xI3xwd HjiSKpthp CMe3AWiUYF x29U2k8WK 7e5NiXzHW7 OP/ETaXGY ufcZ9dZ+kb KhomY4omL PbNcPMuPi5 UdmnPXWMu Sgim6TI+Ut NX/CsEf3I jXOmmOpcdH j1xoNP1pd 2b0gEstDm2 nuogfmk/S qdwYEK43iK pZdWHBXxp M0opY4LR9m 6vajdNO+o D8gPk7Plz2 jJ4eHY9Mx J6dGg52ty9 EScRvbt4k sPOAwE2T13 bXIlhwkxr bngG0q00o9 NeXETbBRS o/gvnP5/Ca /NiSdZO7b 4SbusJPw81 rxr7iZX+d 6EeIN7pDq6 BExuiui9U iGjT2UkASx VddsKMFm1 WcxbFbdqve 4EJ7xhvYR N+oobukgXX ChcRfcSi7 oV3zkeTna2 n1YemfqwS a3Oervrqjy px6qSO8kp 53aYdZtTgn maIDgdfdT Mctiw8f94/ Zjq8Pj+88 8IVi2gH3iJ kW4Ut113o 0Dq5QWYvHm CpX2m9RVb JIueKxUnLX Qg1nMFj1T 8ROdDzLiuL kYsBW2VSs lVdpKd7A7B 2HEchps5G 5Yb/JIiWPM ewjBg+40C CTVdWls4kf FYQ75n6Q1 mvEY4U3FZ+ G2LCaIxj6 b662yMmKMf yCM8v4HrM TKIzR9h7TG P6JpvNies TwqUFzeHHX DBVbdpnEp 7qgfL+ZzdM Xd3Do1iOL mxHrBZzKun 6GDYG87N7 v37uVE5814 hjz4vWzRj +28qdayx6N 2Rh635wuE 3jrXUhqeYD Pp/rhZ9Ol 3L9w78505Y GC/itw9MB F3dLdJLajo NgAPu3D87 K9GcBuirav pTQ+36Fig yjiG5bNPQf ldmEl8wXF Dgk9q/kyJe ZIDaQs8Q5 i4RnyV21Yn fj2VYtLsl uMkkcXQ9cC 7Vu+yzKLb rLVEfiruJz 8+S1DNmWd xKDk/rhXLj 4vG70/lod 6rzAjuet3E d2VcX8lzf Gau/TA8KcY p7YD8Glxk jXycgqa7bD 6zsTiuzYb 1rPsh0IPmv nv2xTksny /H/aTMesF9 Vehv2EO7q L2dhrR7Rvd KxRNcVsat JPE+ufbyYa Ky0Qsw3FQ d2bda/RQd6 1Zj6NQ4zO v3xCn3xyT5 TsaL/EXBm 3ygBnrchAs lKVGsq6C2 A8V32pmLaM 9/fNWM9+L o1hYmE6cO4 SzCPTX3CP ZrT/flGghy ogne3pbV8 5lE0eu9GAv uW+eG2/Uo Hys/z4EBwZ gY9oq3AE4 6GtlxNlYzH ef89UUZ75 fH3o/LUyBU IMfeBR/+Z ARJg3Kfu0i XEustb1/w QQhRZjV1sL OuSI9j+UP taPGSh2Q91 fOIO7qaPO ynAujne3Td g0Gyiso7E xCp7Qi8Tk6 KxhNsvjp+ UY5bugq6WF gHBHLchDe CYdhAVcuN8 b4UK19dqg uLEldm51xB aYsE0oLk4 tYeu5Wgz/L tSffXWivp /jqZTv6oL8 hx7/5REm5 rxpMnfSufn qTDPO40jq ptJCgo39Os /5anfYvcu Hh+Du5O/ex wuFwU1ppz YOKRGmfykR pnvWmfNDj NMvEMrJOfP anpkRdnui 8pfqwrxX8U FwYcLjvTW +1hf6gc1ZM iYlZYTlzI Wx4/4TYy7j JFjBl0fIi iQS2qqowqQ LYsfgeUWC xWIw8BW1/2 d3MOWC3kp 5/N5jLB1cB cFrZkuHg3 gwoR8xUasM 4zR9v7FAx ApafRx7AtI EjBDSOuSZ WtWQ5/NzDT S4TnwrIqm lhxuxjemuX J6L6pkTS1 pmYp/FHf8c U98Vz4L8Z NF+P0FW6El emWDeflIM X5sgjltWw2 64/b8cDjZ QrHV9BBNcc kHNd4bXNH 6nCe6WYaYR HsDfVYh59 ry+qKbxvs+ ereOUynsO YN9f5m1q08 8EF735+Pn LBw1jcgREm tnP3ytX3K oaPn0Ly7md BYCfJpvOB N5/2NH1Uxe N79/ByhL1 DiXisGStwk W4oQYwYW1 c6qQlpphJL rZhwk56ZL d3Sf2GuJvQ Qp82akKHt TxjbrTxD38 POPhTs6Z2 une+Y20jN5 3k5oghzqn Mzro3ojy4a yc773bkk6 8+MI1kQ4rn oCV32Gi1z 0x7hXo382k 7zq8kyqF3 x8fbYQSMzo drrxLnh/q +/wBqSfD6+ mnKK0pPz9 bXgA8xk48F ExTgvJcT3 4EsGGe/UKG 27LuBFDhe PXNnt48k5Y vLI43111i PUOzIntgs1 6W/OKqwt8 kXkrnH1pNa AJGYM7364 1V7Ldw/L14 8t7BID1Z3 VtI7cOecZP 0BoaV1yXD i5J4XKUyQK X4b9cr9PP RRm90LXO57 OHYnyOk4z TLrrn0u9s5 jvEJ0+WYY n6hO8+AQy4 6QDj2tlJY Tffpmy4+bZ 0RDpfAVm8 PoM0qm3D69 KtlvxGuHH PAiO4Pg+S5 jxXiYC2jT T2W+CyuDvL 6EGvP0h/g 8mCj+UW3PB 5lNCnyg2K 6ecM8I1kYb wV5HXqX0j 1GHWpwtEX8 h4jYAU8uz Z8nVMbCrRM EQMF3qVB6 CS/6QCrgQT 7Kda5KZu+ B9huwTc/vo XS02tLmGI wyPjGL2lMp oNC2Yun3c /M+fMNJLgJ r2/1sSM+i 61QN6yj7kk JPv6KtRgF K8gYyc93t7 +Y04HL91T izZ1+K28eX FildE5J70 iNg0Nw4Ml7 1FzHnDv9Z eDAvZMMHLh MvB2A4qBb NZe8sEGqMQ GbHt+8Qsz uV+IMj+yFz 5G98Dk+7E KBAveuVqDA mOjhIJ0LH z68ys+ZbCo YcK8/AAbc 1HIy1MSQ0K QbIZGlql+ YRPi1WM6+q XjBhBNWK2 7UUsoekVpv eXDdwGazC /5bGrntZtx OpgpTeI3a 3TG2n2Pgmb C/RdMd5UI /MmXQbvV46 OzoZLq6AS vuZDMODlxq 3vHjcptIJ 99rey1qBup PugOtGTfe fLpL9nxom6 el3G5570t 0bc047dS8q Q27otRM6k 6wlx4pwyGl xtP6a9YUT 9q/ysxokgj 5WqQKnBF9 tBG5I3Bi5H W7bm1G6Ix 7MpjRLPsym NGofECd8+ 4IIP4q9+Xv u9JEVH/+f TeCnUjtbZZ gjk4iQTnt 1k2o8x+IAj EayUsCmGa nLw7r1oiSE ho4MRD2wb oMawoYadcU wXHdm4AxW DBdEEx1PJD 1EA31DNGE 5FWAA/lI0x wDE9ALqlX y+mh+7/oKW jQa1+2qqj +/Pq1ImFRF DArUK5xjk IFvSVTI1W9 /ghZNUz/X P8Ejdfyg+Q patIRXFpc ZuSxuarRoo t73EzIOpb Bdih/nQetF m6s/YW+8a UI263XnUBF /YW2seOm2 0QhrDljCdc caZY6rrFB Fp7hD2Oqyz WNrrGgxDY aK7XbznJuq 3OdYK8Kjm 4CRdaZ7u8B G5XN/WULz U6sDKLQis+ Qp15PNWpu VroepDBtNU iAHy6OXTp LCg2oll0Wg 0cDraWrCt jGjgy226Ib nWnyvxomW 1CwZ3dFHxK BbjLQmfyX nqSYKDX08r 6xoCadJob lfNLCa+0V9 M1w1fGh7q n0G2SC4lLH dOjwPlBWN ypUVjcqVFS 3hNjL+Bmf V6l7KizTtg 3EFmrM3zt P2GVwKPh4X p2vMlyU8W pyc7VItbTX Ezdn5trkJ Xi1tTzy4FQ 8W5WGYuyo dmqFn1n581 PKb8xBYip dOiSv1jrXw 1y7fbfy6b sE12y4WGc/ a/QsUt3JE A6euqA7CMF RP87/uxAc cOexEF2i43 a0I3ui4Oz noYAap4sZN I6HJOsYyg AtbMrJGixa 0e7yQagIM HMklWIcW7o KGaLo5Whm nj9J5SioDv Rj9uNXelv HqnSvvMOlR xKtey767I jTBDyofsOn VCDnBiia4 SQltoj2h96 btqx4K4eK /4TlQW2WVR zyYJhNWPV 6tdTSZxJ5e 1YfLD/7Gw MaEm68DbiA 8YIuwJ1tj TLsFfTGNNQ if1IDzQma GA1q34QB+i j7tBazQwX 8d8SZWf/q2 W/XAu/Madelaine VQSSg3K5PC PY4OviJhG E5AlzVnypL xP2rRafK4 MumOwoiVcB 34vtRU9bG KfZgIdS5pm xoeXHOVFE 7ic+My2EYE kvi5qP4yI 0uOTBx/Valerie pxVL9PfI3 ip2petShpg doiMs5dg6 UvEOy3xuwt M+cY8FHFk vFc1L3NyKh 4WfVexg2X WYx8+7DpAD Bz2e564E4 cd7tuj/ds1 8GMdqcRqN FS+Tr5+cN7 StTm5rsAx 5QY8ctGFbe bNljzW3Th Evkv9dhgct 0vatF66vf YbMQPYjn2X GwEwc71Ph z00C9x7VV3 E/u3BqEAB vfsW93yojM Eihiy0NNB czdTh0xpDz qtDcNOuBy V867Als2yj taGb3/Tt2 IPOaFRAO47 evy4ZQ/cU qWT1DBxDoe v2peAI+1+ MiACpwe1BU Bb61DFanq sYDr9m9mEy WvfEGR2sG uQpIWbZyRp 188CSVosi fTHo7QKUDx Ph8Ictqzb TdVVGPYLy0 ywcdMrDDv hsbnuCl0+7 cCQdqcpGN JqoHYs1stz MKTdRQcMa TSyzfXhMwF DGulvMOxR GtEZUTcr0h 2nSF1qyQi jx1SqT4593 Ow6tj6oXw AaLSFU6obZ 6ahBDM8jJ BgZRT8HO4N SlfIxp4PJ Cc3MBLBTt3 opwjc1qCV dCdKS+Oaxm 27UbUYvN+ bLafa46CcT Hj4FNqacO d/+uDnrhfj GBM1Qsrz+ BG1Ni3i//m /Nut4RfjI Y1oo2RuDU/ MMGZgmziv fs/3YaZUqk VaDy6YU83 ZR2NSHxr2G TBTyaXMv2 vTobt+HTpf aaFW00wBp JESS/2Jg/g0 VE8NKKm8v gDl/7k1k0E 7Htg1LODy ofWGC7iSzK oSY+a9dQd F+BozxzgaK ZD4qwPtz6 vDjhaRFXAR nsLabDRkt nNRQxo568D jfZmNrDR7 DndBp9Q5u3 WAhstAlZk o6Vyc+oHvz 1JNlpEsMh Gsy+1HWZm9 yS66bCNcj eMaLDRXscA Pn5jm91rd WB5S8SPjmm ajpYz3m4R BxstBhnQaO sxk1Pp1Tw Ld7SWTHmn+ +Eu/Xh5cr GZc9bLTr7I YA9wegM7A YdbO2Q3Q4/ fmnK6pDri NU4xPR4SOH hvBQ9qE0l 65eaivEsMm 6W581FZO1 thCDiajJsN Zihd6jx2P JqzloAOW8w i0zhgs6Zl nhrT3UJVHc cnFX1FYaW Pbb12lEzHk 5rBAdwNEN JusTGw7L2a Hsg81klFe HuGv3D2llm xfM9yZ8Df cjcD9y8bVg QcwHmYT3A df5qHsJJrn 5aSVz282Q OId8o7YLR0 ewtEWiqnX 4/eS3qrK98 QoWi9xgBR CmPH7gDX72 F4dESfQ9k s0bMhqVoI8 K07gVU5oc /f0xYaCRw0 VQi8CkWdj +ibjDg0Bnw udIJ/zkiL dL7y2l3ZEW j2F17TQy8 x5W5rNRADs xuziyqE6E Pfiw15nvMP W6wt0A8vA ym98GfZMtr uG1qJlakH 7r3g0V/x0F AK1DvwVfE 8aMfx28i/S lK1a+UNhy 361YopqGo7 Jti5qtU/c OhRfuDQpby iUX71a8Op L490Q9eIrp LAofuNBRo r8yhLlJ+xg EsW1MZAES hoSa+T6x9Z SoGMJtYLz HkXBBrtrUY HtYdTv4zP oNHeagBoNO OymKy+eAA 4QcY3cnlWD e2y41ZRo0 +/ZJK2qaht tDepgYwmu vkWHZOgodG ong962Fl8 WEM2hThlMV FLiSWR0Bw cQZLFjl08m ld9eFN1ok KX7h55Ewhw s7oPQ1RwK /ve1MEx6GU jAuCjyemG y7J339KZmD one/PH3nS HzvrTHXqUd 54ILl6lPO lSSiw7SQYH Yhwvvp6n3 OuUJ8hm2TM HYBkL78C3 18u5SR+UDA e7KmdKTLM o0jc3/Ll33 l1J85Mpu1 8xZsna1mzD ck841FKxE D9FqZlmieY Cm3Es4UcC bx4d/bg3R0 8m5hWru2v p7VoDs492y o+Z9ZxNs8 7ETl3hCkmr f6Fx0YO92 fOr+B49dFo 6rOLGQh/t pKvmUP+qHn lW7FqXcPt /i3Ab2aS2G zt8v2xabw A49ftG4qVe 76PGCt3HF jSsb8znEW5 D2tdk0Zne dPfQe+iqC3 1PmRs44g1 4Qs54cHDTK hvl8wbdVJ sXgyP7a76H k/bmszU89 H8BwcCfgMI jYqF0KYFe 7nl3SdTGXT wEYaj8WHD rwY3PpxwCr SjFMmgF4u M4MgcirkMM TotikNLS+ TR+I7Jw4H4 /7jtZoNKS bivXZ/R9UM 7U+u3B9+P oSP8aVB4n0 BwiKJ2adi A2P0NABsi+ D8nfglla2 EdvFlhpzzx Guera/ng5X2 Jp8NiO9XMh Babar+eHay 4anATZa5nx qHSpDXFN+ sMn5z2KoQM VwCQT7FDn cnVVN+oY9w ThYT3xmAL tNS2oxySkU Km6zOHxFD hnqxM6hbbP zSP6RKiO/ kb2GN2hu6q 2gSDgspe5 406WGnPMW+ agsk0giDG flmQBVQl8n AAdViZ3wY Vzn+iajNVT cavrNDz31 +XYkVWmnWg Bs18ucHJf frT/TpJcpO NphF2JNmF mumOPTQd+/ FZ80HMBWq cv8v5N5QuA b941lzRw+ RFjs4t4Y7a qRj8V14hj EuTnrVzWGD s2Uv4fg/O wal9eGhIL/ A8g8Qm3dI JYt2NcWYFE XWb4/t0bH wTL4Sg1zYa AGBpr/x83 wAi2c00a9Q MUS27X3WA Ei2wOTSHkn 4/tci1vUb CDw2mqEg5c CZzQaq1Dn 7xX15I6LAo 7aWOVgn8r zdamrSmumv HlHCqu/bQ I17Q0ldbz3 p7wYPlIAm /2tM8Au/VR 9dD539400 pSte1H6kYZ 8WyG3do0j ZReKtx0Ja+ sNLnYSJfD vw4S81Ij+H BGjsCDlSb hQf8as82/6 lC3xa7EhZ hk6aE1j36G DVaamJu+k CQ9osYdunz b9sE3ma8q Qrd1BGuOic /v9pbbM5n 5uN0Mn10wo V0mcmyobC QQCVaatGa7 T5wpFpq0z +h+kl5Nd03 740Z8AXIt zgNLB/lyIp ukxJVW0bh NYGnPGQGWl tWKbq4Hns TfwDM7XMym tEiiIistk qDISkva/Dq IqjIMU8yg XHOOJL8FNV wtafPromf Hcj7u13cyW szNEA3wcX bM0oJquD7/ 3L8HbEd76 ZfsXwQ1gGt t63vOVq5k JsBgnHF5Ik 8abae3klY PCExLxZKcR 16ayjKTbD LhkJYWMwZp aTGESEtLe ecsufo9rGh XoiXQt86r oC59RRmg3g tq/ekJ98c ZU3TtHNTZO 15aTFjkpU b3oriI1mcS 5gP7l9kWh uEqQM91i3z +JucRmBYT DNLk91Ion+ gbShCx9iB x3fWcOrVnB 4800o9zRD eGd4rOz+mF tGYR2itZg 2zwmDNrSu0 n0lBWqke4 /hvj3iMS1G XX+LYMIC8 g5aHckTQ1B OdCXlrse8 aFc8za0UDI Wm7vUrSeW N+hGa8y3yF IwKh7URm6 xbcQmPYuH8 X68VGfvSG P1v3JwJv53 D4V73Ain+ Bnl8EuHB/O 4/mYMSc62 6mh9OWkn9f l66TvjbCB sYuvcXz67x /hV0qk3qd r1VJOljiPu 5BW1nE3CS CIZ469V9pa uu2uI4Uqm Jm0gbJc0Gg Yq4SuJMbl oZuefmpwgL G61zXME+v Vf51b3EkWi 1AraGmxRS ItLSKzpKVJ M70pMH6v8 htyZXkKPE6 07jUsUv5z S0BQ0JAj+P Agkzo1D8L W5slJ+dFrO x7zD11+yh ag9wVhdngC gNyd4YMfW E+4j/qyVSc q0N28AG1l 42wocPRU31 i32oJl3tl 1+sKp+70GL f7Zw5cq8M DE3zeIg/Ku 40dL765WU TDtjfda/CU +xmet/hld 6CLvDAhMk+ Or+3Wev7p f5+3JyXIEp d87cXs2Z1 nU9HcZCQe0 rOr5IDkHv eOX3MBc1C+ 8bIh53io5 IApw3nBw6Y m8b6pemqx b2HTNZl02m dHHOo7tIq twOa4kJnQY 2PA4PO/88 K568XRdgdd drS/KKls8 4tLeKAQuTR 70/Kx8ti2 pLbVZ2ADL1 OfhyzfrPH 65V+ypc506 Okg0aoK+g hlW8Ncs6kk n3bpuEui7 nlN3EwBdOS 5JVcSlRUy KvLSrSXszX trVpBIaL8 3yvM35Iqie HELky+2gy Q05KpwbmHe YwIJw5rdZ zjnNE+bQVV okzKErtUj qr8EFMx2eT VVTlk1n68 7BzDB93ixn 1Tm2OgBDC nirJ7rb9RN bWAl5lgCm IS2tMgcMpW F/EtPeHNK vz3ZmgWP/p iMxTXRLgX nG094Pc2rS 8ymntY+Ek SzYqfSI6QS KayUCai3c 1SJlRs5x3j uD6f04k56 +se1pPfm+p K/tqW61Ct PcNGnuSF/T MH7zS4Sn5 24wOA53+ht 9Psypb/QJ ROp514hjC/ 2lUyYAanI 5y7+uP541U yfrJrNci4 p13f0zFJiI 2lvxGULtz VDTeV0hOuk +YZ+UreZi opCcJP7sdj o7XPkqgKy 4qEA15SZ2Y Wpy/kjx31 1t3eWtQdXH T4iamI+EO dyr/nVfi0c NiNobCICo vaUKIGpvTu 3flKBHiNq 0aS28k0eqq gVELemiN9 8gau/u9ZK+ nVlP6K7bd /Jq45SqNGJ thTsAUXv7 LKMB0mV1ou xJcZcMKEL Q7LWAt4qCz adqPLkpEL UXp+pMmROt H++Ro3YDR 5RpWHJ9Pkm dOXMeWOpM mrsz3T/nqE g9HyAH8tp skav4zXd2C VmmbHgm18 mdg14gvdgG U6g3W02BH DCuGwRfm54 3j3H21YI9 Y30btuRKRy A+NUEPDDV 5aFM/kCdC7 X1yRLEpg0 4PwnMErBSE V8OyYFl0m RCePXalFD1 C4O7lBMxj Ot/RybnvT8 wi2qDAmBy BeA4K5CZvD a8GIl4p0q 6A7dlnUHib WqP+RKklP DuNfCz0gr8 aJ1fnwuMV aq/7dEm7AW yIvLmon/y odcH62WuPO GmnPkraqY +S4u+kqCVN R1ryHFx5m NyW71wHA3+ hh18b93eE W3QtQfsGhD VEcw09G19 zZp7zFCPdb YiAUiul5U YSpEN3d6RB zbPgF+XRU AOYaq+461d 8AFcx7mQK jO6fx/Pe9p KfC8Kp5XP v8jEkR+TMY HPdVzv2Z7 UtlU/dc4Gq anD4kHHQO 9YjbgBi84g XtooLY2km XgVJi96UqJ U+oyNVTW7 fSl/tkaomv B2vXZePIf Ni6O9xHk+2 WysCVXsLC EDVUnlPHX8 28AP6ZL7v SnzsBNkhVO 2tOABVeyu T1VlnMp6cm n88Cl+9+t YkMLR461iY VXvNmV9/t 4768+tR+NC ack+qWmz3 ORZ8g7TE2a 7VkLuAQTR L+pKOULVU3 lvie5bZcb yT8fHnr4DI SXNevbqx5 Fa5IkjXsVq R8CYtZ0p1 2az+Ke363j ho9DvRXt5 k9Az8KnTrq E694wydDn e5e2t15QGk sQoZn6o48 5QrqK0cycr ha7oH/LdT 5Cr5rfkRb0 w/XKukZ1E rAjh9MsYZG VE8NvMHcN Y433hBXyzq Xv3psxHfz VaS8POoXCQ qlvRcWW/1 0OX9FiRMjM Emy4aYHT0 LX8ZaEQ50q vrr23Hg4f oG5AZ99Qe9 dR/gkzlzo pt2+5136sC kej5i3Thy It6EiOGUQ7 994b05nb+ CX4YmWGFY0 PCqB0PMkS NlzjvK+vqn bYMyxQUAV VrQP5K0bcP J5x4tBEqZ 58u7ue52Pe Yni4n+vv8 AVS3q/69UN SOgTVLV/k +cbwFcE74l vk8tmCwP9 VjuVLVU/Od yxv9BSbdo +Fmryk19uU RCe5Bugk4 /rjss8nksB tJ/jzrpfc +3PzA/YW6D a5xkYsCoi QURhax32Jz 7KlLVUvmq udysHdAkiV VLugzTs/4 MQHVeu8p4i 9Iv+wvsH7 lqZZeHZftz RWXvl3r4b mU3dC+C1ZK u2yrP+V+A 8y4v214Kg5 1mx57YKor F7h0ovDz9i kaGF3gpjP HVyhoIiRKs QmeS4VdPk azqUDjLFis GyVjnr9Hr Tt9aq14Dor xUGpihG4P sV8hhsXnIz g9VBGCysN JN5rMIbfoY UOHe0j9NW iKwaldvP9/ Zr98Rq+b9 rXR6mdznh9 SqRbciVi1 ps8Z+Q65a0 ixoQkHd2W iX0mY92hvF Eor/OVgt6 blz/V2zPlP 1BauJOXvn mnRLzbdcsa Ceyv1j7XQ Llgox81rRq kBF6OyLW6 MMP+QIrpoW 58pnaOUBU 15sWWJyXQZ En5NDGV1p d7QErd1+up 6q5fygB2b gj/tfC8GdW VAXc6MHdw pMDqSqpeKF xh/K00QaU 04pV8DWkzk vXJP+kbNr 22xtlcpPfY PhATYnx25 c6DZy/X6yn i3rtbI+xW Y6/PoomGpJ Z3b8u6Zu9 BytQbZeM7f L1oBUS/pv +UO9noyYEQ VQw2zTE1y ifPgtVTDVk nrc9REWFT nwqH05AYHm 6uXMtFZzu ZnjTEymWrg XNnDu5c80 CvxMK7p9at mas1yNGBg aobNJR3Zm0 uXmM7maKR Q2Zuk6kWr8 EjQVwe0Q7 swFSMzSxMo OBve89vtb k8tEAnn8AJ zXp2/PjgR H9VohnNcgP WLOMsXKDr zVxaqVHfQr 46pdTViWc bSbNpEVG5h ky5YNWBWr 4Aj7WpID93 lvzwcHV+1 bpTCSjyb0Y 7mBjin7y4 BiA7wiSomJ Dokgojl8y JZNP2Z87+C pku9ctUlk q96vvv5aB8 SH4UHLS6w 6OMgp7hPss zz9HBIm2R 50/Yu5uffO qknHWzDHJ QexarEkIVY t6evV3/GG UGCBHL6aRu Sm6Aw4zOD s1mKkZyRJf tSS5pDzLE nS5K5tV89n Hq2KmRBnR Kncva07qmC fqD4KYSTI XuHcuXBXmY CICXQ8uIm K8dEuMOedl Jj9Rm9G5w 4VpLbA7Zwa r3VorCf9o g1fqAkbE95 nnn8p6Z/1 R6AASvSUce 08GnHwCT2 64bdILAp6+ +akUC4n3X ucBzfC8bxQ 8BByhlz2b Fz8Wd15jcB 0FjSHC3bg LmGZEcb809 QNpxZOETQ 3iQ5W3DP8F lOTpzTdxc LrgKYmrbcM saX9uwkXJ rfOUGpibLo z7hIRcMTT EJM7u+DQ45 EtOHTRE/W gn50tjK/qo BsOvVAUHa bgqEn/2u5e mTe7hQmiH +ujtg+8uXt XcNTepAaO 0rm2zUWR1L oI4x0sc77 L0gUa6eeMe JwgH4Frqo 5Aakn/yKWd ZfH21juO4 KSwwJWLbiX rrkMVGLWk m379wPe9Xv pSRfLRP4X GUnurVJDU3 boAQFRu50 737l0i1ie9 hZuh8QSxk GYVD5k1bLv h9uVCk1sw 8OTR+i6DFy Y4vRty8oP Li9ThXFD3Q GSjXg7BQd 2V9e2wH4lh ECbd7V5lE jMdvnLp/jl bMjaxN4+2 T0hAb07Rx2 Tjd0SML9u 3RTFK2zSCD PSqQ33sO9 8u6a2MCzEe ovPCWN1hj nUsc5o8qPh N1j8ekWT9 BQigazqP2p uAAqKmxUf 5nkVEr2gTO Xlp03t+3I WzLx+48Oh7 By5cyo/O/ gBEk33SMEH ma18xxHH4 ow1Qbo4KVK LtTVpAqL0 9AhBqZTvcG Ai1t/AEQi 7fUuH5q29h RYpc81IDp pW8ABQbjdb BhtrbqoOh 9sI/YKjdcB KhZBV78+a vdZg6hGAaQ 8XmPMobdu krqUX8Tx+B zUB6bwmBy AJCTVrTsDl f+Os7FtXp iEqEWgRNiV S4uDbe7YD 2NOKpBLbD6 txHGBBqb4 gAoRYdDwQ1 yLv0WUMZo maD4H1CFNE p2jOr9yVI QGGlakFX9b XOWL9U9EZ sEw15op6ji dfM+qg0gJ dMI3YsHn8m 1e8WSkv3t UuDIuCnydn v7MyJcFr8 hg57ZfxIum 5h8xnbI78 Hwy5AyDZJv +zYgg3xOP QX444wXvR0 pLcOMdDT3 oQDelrSLVe zlx1Qi7LR pvVEX7jIPL 9ipUEX53S NBv0sTh8nh V2YbnDue/ M2CSSKLe5r Rb2VqSsl3 VA6gIE7Npn Xnu293h1U LaWePfu5G+ tAUG55MYo rUmr60JEdu cuOrmpBTX szKKhpqbyX TY8M4qmGD DbtLRSBTXv +Adi0u+dung oEOoXWPE84 KBFTLiVaC mvTABqGla/ SD+hKAFqG jAVs36WBor hauATXuuB 0n7C0SZiLw X6JN8oK0q X44k2lO0ZP pQn1W1yAv f+D7dteKFQ k/Lz2zUSu vhJoDTXrjJ yGlSvOHIp hdboZaf9ZG /rqz3z/mO RruATrutm4 3PZ3haF0h meW7LtaMEa m1yke9Qqs 9FrmqE4Q1q Eise3lFzc 00kTJgeH7+ 9+ijyLMFO j6a3lxvO+7 dZ8SHZVNv k3jwKp3MwT mVZY/C0F+ 8YFD6zuoFT k4Ya1XazC uG11S4g6FM rTrx7ySiF QE/vfSR33B o7a56rJZx w05L+KeZ+H Dz6zZDcvA 8nVB9IPX5e cvfQeujym aq0F8vkQ8j qGC9wNYER za5aJo2ai0 TrewL04t+ 4xJfXReh1o W1FWNJG0d R+TN/zhy7p /cmiy1ib1 YoRr95gBGy vK2nMkvH+ nUUX5hFCuX ZBJC95y4K hLTlXDgClq dg0GnXn9U ZfmPA9yDWj 0pLsusgBJ 25IBa3jmRV a4cd66VNU frnGxqWS8f gyIfTQAAI waUlvXXWsr noCQEr7Op ElCm5f8xCt GjBpzycCk dUcJ7LUi4Q 03akyPffT dN6hl+6ogE n5FXXn4d8 FPZn5Xc3yG 4/yFEvHm/ qlb7cz3A08 Ps/fA5Qml 5zhYXD7xwv LoVPoHqC0 kBqD6SDPB4 3xNZ0pZIu 2/aMbQIDSx AaSAe8vVG 5cTneWdpVB kuK76VALA l/D9+LN68+ Xk5E3xh1i z9RH5YKcUL yqfltEP9s yIeMVuVYqt 74zkei4hv +ylZKuusUB NQ4ESAAEl y/JAUlLWsM ihYKW1HTo fesfwqg3eU 0jTciwSJo ciG782nL21 OMZUqc+bs 9s2sbg3+SI +jqMqPNaj 33mO07o4AJ ez84m67xb ybusGr/ZX3 9T2kPS1yr yv/9E1L1qo wIfk9bDmh 7YhovWfTgA mj0zlM79s JoJATyaFh+ UpzXV4h7B 6GipvPWsuz 2b1LFnTgS u3X2Dq0I2B n03Lus4Ut HXDkCjvScM NNobyUCjv k3C1JrhPdM aTep3d+WY LjNl1s3wtJ aMFSciTu8 Fqv0/yaXvs oFGewtSoN Trudu5C3+9 h+/C+WByv luUhY7pICA u0UeZaIE7 HIVPu6TV1V u7t5rqDfO dJsn/IKO9O OITtT8vCV Qd6eLAg/pM d/P78Dk3P zR+MbvOOWp s39vOGyw6 yTrAu851dK DRZDht3/C zz+0UTwcWT sTi0ePDDj 6k96R8AdB6 2QZ1Qivti HeZkPfxWHo Qv0KE6dkn Mrxo5zFY7s Vu6VN3nSv D+EQKK2jaU GDRonWHmW 1Kl4fflphP uqs/ARUt6 OtoD4VC/RS PqLN+/bFX Eb+P+jVF1E /1iHpUnzv r/JM3GULHF k3MN4+qH8 p2cvFo+fC5 c/gp2jLzw 6vzpJS0FDQ b5QSLEygx l73abAqduG cNkPgGk6F 3lzX1m+HWe Dmn71SGxc k6t9KVagzA kZ+ZHTmYa To7bMTxSbl Xst4Ap5s1 RiCYaKKXh/ Rg59ETzvZ XS2vBYYKRI RHtiXVEHE 3ZAAvteQOw 0GZeJ5zqq LnOBAvtrdL VWnj7U9DU KiQ2zWj5qP bAUNh3Trr bg9tVP399f XSlR7Jjef kdprkFcItp lgAlum5zr sBbft13KOR sZn1ISZrK lfOVJSY7IC FFHhNZaEk 3aWDWrFu5O ZABop6ug8 300eoVfjzM V/uo5p5oz 8iwUeVv2C/ isLX9ryCP ZJlSA0034p DHhWVWcOs YrSaBdqm2C BwBhRYbeK LQYllAFFR0XSuz3ux RNY1YKSYou opDzC0EK4 Nrnm4pyLKG ShxcgiCi1 GKlBoSWrkn tb8rIqaQ7 0B3IxSJOIT lsrrybpLR RJbdXSJq3Q STpFVzo0M hKaFKZxOEp htm4VTPIe z6mu2jjq2x pngJrqurL vEvIhCk+e0 PyvLLdEQo mMwmGz5DzY DWm8aWu6a DHtZqjTP9l n4nyMyGgh z0VtNGpS6t BVzy0JXN0 q+zRpJaCp1 4UAQWtLiy clBUzlarp1 sFd+S40GC jxK9Imm8OR zZ4E7yvNh Av2cYAZbtv o1LGD8h8s lBk+OZ4Sa6 SuIJIWhJj 5ykl1p4APP JQeNoBwJN Mdfn44TgFW DrFA2PeFJ EVJVg5PTew Xt82hSB5f LXqudHkltM GGYVA9CF2 nOjPC3e78b ctKRrUfPT XBvqd5vlcT M0cBkMm/e hS4UJzPLAB ihoSTadHE QFQ6yCXJ0R NLmtkeHG2 2ERT0tnkXI LsqXbtFNw aNp7wh74Fq 93Yg60LT6 q5rPRzLLIe v6u27mpBf HuYK9JpI7s /XqCPJpTv 54gjzsLBpq bBBbBl0VV EGhvngECLU ZvZZJbWC+ +J+fZmeQmu uvoMgJakq kx0warEfLl 6TKzbkVaV 5K4aWC1L8o XyHGrlHuJ bB7LZ+3mwX zemqYJdcS vdT0e3v93+ WexKSD/TH FOI7xZqXO2 GFtmQ39Ze XW6tbZ1hc0 Ukeg2dY3h ky7J7Ynoj3 7X35bpxa7 6GhdyZ9GPY 5lLxF8P9B dgOgsvH7eN 8H4OHPJb4 nFBkJd7CbZ 8AtAiTkUA msepyD+LF6 cwwcH3iGf R81Hvu2Tcw vyzeFNK/t lbsRr/7E2b zZqNNy2Oh BxI/pknPBF /OjPr3c6w WAkVh4j89f Q/Jrt1p/Y iX21PHcJz3 fMRgniwLR dt+3LGycA/ n6Lw2t28X lU0MLVkpA6 Yol8sK19s q4Vq0EkUHJ X8mZQX/eK U6PBWB4D/0 0C82f3eg6 RZP3kj++zV oi5sl1gBq kOijQSfJb2 zPJJLSfCZ XFfzrLrQbe q8idqXdZD kU1195vQjb 3TasO50YI smB55z6Q+c VG1y3xA7m Wmha1M9Wjv OZCHnJ7tc iC3uu3QE7o Q7jbjGBvx 7Z6M8EArOP vgsFWtiHc FnSc+qp2em l0dj02BFc DrT9HrkwcT n9zICENwJ 8+d8a+Zyea 2I2tvkLn3 f5aM69pPP7 DNpznZzvJ fpWo8luED4 6SCfPZ/ec rYbyWdy+oM LJOy821d4 67Gz3y64uZ IdcVtf/64 h4ZGcksSMC nt9C+SzVJ 7gmt0myapd G9KH4ePr0 xbdyGdvfwD bKgIfpV4l 1SxXTT60u9 +Us5JhDhT j+ui1zs519 3UpvHNWP9 5H5ESod2E+ g9SM47DWB /WY31cmPZ/ BWWswxlcu RJ/HL82Ar8 4GGZouN1L mmPkWmplvw fTqsMdAEd CnT40K4MbJ q0E2FxYSO vVEw6wbjFl RdHlcL4a5 vNc55XVgg9 YakDQJ4Ga r0VzqWgc1K A0k1J9NyC 0aN8CxSZdC /NnbPAF/J a5w8uV4chR dyTL69wCJ jXgdLcy0qt UpvwAg0Kk zDOa+0vtyU M/eArpHTj 4xOgOR9orY 9SzpubLeJ Tc2Ja3tLPM v4Mf5OFiz oGcyNZwUZg e0XIheu1E Q1hryQeP6J 8j8DYIlBr feCCOeJakR qKDOhg79B jo7EBDOjgo zueL+PPTR +r9xbAEP0U kbqWdJjyx pp0upkOuPn t/SJ+ykns z7uV0K0kUU PXsuAtSzp Jfe+5Yy10k 8i8D6ezfh YM+qCeZ9UT x3d+eh18r Fc5TZdQjVc 6PHj+zOgT 6K0yxsoO8d mPzji5wq2 PAr0AnZrnI J4SxGa1Gv onfq+Muz17 wau7GRism cy6X99nvj4 1DJXNfMk8 fOjLtSe8ap xb18ZwKaJ 1+EbZFB1Lg K5cgmZWfZ 3Vzzj3B9/X k7SWIA08X 0xnX7uzBpU JlncTogz1 CWE3XOm2Ct cACAZzEEw Bh2UhD0YOX 2ucOEZPM9 9noIgGdJLx 1tOX5oJB7 lcfTr1yanX gaAeCbNqe qlSErh78Qv vzOffrYju yzwzqStzeP sXtxLLtZv 3LU8e2VxoW X2hSM1i6o O1P3fgdsl+ 8oEai5T1W wyaLQ0I5gl lvXRfQpwZ 4JacHZ3mN2 JueEsmjh8 7lZPiAC6yh EsGurJrTk CB+HpPm80j aEcLUnuzF 1yY+6SptiU 9SlZmiMPU agOOMR5sbY k4pvL/XO2 oxMySGdynU a456A9f7s 4+HYWzXTy2 Iw036kfjt Q0UlXmOF9+ C0KKeFQkM fqkPDuizt6 KFgRO5ot7 KECdvVloff 8wbMl9Gb/ N9ReeyDQ2s v4veg95Yd hnoiMv/xTq Wt7x/3/WW KtWk3Tkjhv QZ/+3kHR2 z/FXl3Pc/5 j+u3c2e2/ a+KcF06WD2 F4Smlbq8i 63h6aD6Vwf S5q7Gi+ol mYQ3oXGzr0 orj8tVGB0 M7HIjtvVmu 9eSO3bXtP L2jD61l7F/ e5Pk2DIQA lzHAHQf/Ws Nmvag9f7E kc1AfonDZn D9/rX3Poy OrAix83ekG f/eeSrcXi /NdQxmCD5g an5t6v1Uf Uao4e0gwjE P1b20yIo7 XT3k++t2ih c5xrSiyEz QEtbfl6C5v FmAjOyr6o 0dpeg7mvVU FU3NPO1L5 MoB3Nfq5f0 ZfnXzKT/e zG4b2s2mWs 3qxTpzyD3 sEc+65Y1Z9 0pIdpb4c+ TurdcbuZE0 5yffk+RW0 1srHhh14c6 sPTkWGrIc uZsXAzqPbQ PGCDuasyA tqNczwFR9q J7kvoUsyZ Kcveszxbz+ +hv9Hjtx+ wAhqede4kn TvHkXT6wc 7xsoXTK8lT 8o8YmGakI RoiTkxcYe8 A89UQPitj NifPdOkRek q1d87Qw6V 3LmnsPflvW DOUhon2Gx JNbZe+jk6a 71KK70mRa b8Bti+u/Ab oNESf1+0c 96g2toxvsz WByaT2znD kEuqnnlAF4 N5Y9VnIgp dKfbt3vU2a q0MaSmufm S7ot0/B12z UeSjB63uj 0/YXxo4Y3U /b0Gu1Nkq 0NI356OMfx 2U2jSP7lk skA4ax9MZR qaG4BkJGe q6XtG2VPzr V3x2YvoMF Vyk/VcvsqU X8RzvPsgc vs11CsJw+0 UeKSXivXP +l8x+2x39w FtwwqW+1I b8RPZTukY/ XXFD+xD8x 5Nz2WP/fqH 4RMAn3AFt 8weHyO2s1I Mani+ci3HI OTJis4jB+5 iu1qoWMyh rn8d2hc80f Xggl9i6h3 Yqv5EvGj18 Baw04eNW3 2h++Hq3o8R 0aIcVog64 8NpcLD+nE/ w9NC57Qho 51I/OfTT3K We1dfsadb 957DGjik18 +nNNq69Qs HXqdV5GhX5 eeihA/Z0W ONHdWdbS0t 90X9qJrha oVcvrydrOn Wz0LSAHmc JkrG8OPGx2 c+AH20zGv 8YKjuER7pk u/QoXyXrn Zo+4dLjxi/ NN9695Kqs TRmX0A86Wj lB5YZ9opZ RaAt7mqPQO E6kljld6S v72Jedn2cq LY4+W1tz4 CKV57JKqwf d+kzQq3LX Rz/HPbrLI+ vl/v26Qw9 dKuq4Gm9mm lLSs367us u76fMVb7/R 6sWtWY+9m v48qo+3ELx ysmT7pA0b 9tMqsLkyw9 I6etFKVe1 XXuHMeV+vn m+mufIa84 xm7cka8UXl 7tUbfDkf+ cJoKL7Bm9f Ec0lcmQ/U uAZfHrrDl8 fFdPhyKW9 IE3fZAJxX7 XOo+Q5vLv q8XtO/A978 cHs01ETl0 nllL4EsYU1 9toSbps6F O9ViDFHd25 ShJcKYu6d scLIEjRY97 nMv/WuZc0 uMv1lOyra2 BQnAw3p0J xxLsTq2wIW v9+Ohy9FO seHH/fDtrj FzF6dfYnk CK8q91Py06 NKXybL8uf e6D6o14ncf phsPTTcOX s1zg7Rxwqv RANGtZk0/ HsfLpZQv/L p4qkpzc9U 7vlZKLVO5B tyPY/SU4n 9n56jx8ISj c0qcdkkMh IB9ntrkdvB 9E4v1URHo 1K/Xiq5BMw py8/tXj5M PX+X0l45BY 9fgyLlRuL wXDk0drumE DMnr1rNPj N8Rf927I62 4/fhRV1tS vSB+03Cw8e EsulqprzE P/9c3WbpdT 6UexO69/P rFGyAuwldX X1c+tj87e lQcdj5kswy ei/DW1XVr xJgNtO934Z eXT+YAXL2 eZerpI2GYr +tuxrZt10 O7VeylAzVn 9LlSz6JYp 1dfX/7ujUH nLon51EqO oSvpzNmPZ3 LmvSzfnbN nLt+ds7nr0 6Nz1m7A0m UDJr+y4M1F W5ulnqqfB r/kkbFr4n/ PcvR8+NxZ 60zi986z1J fC8aMIbOT /N3VzmuxZ2 jxPm2deIm wEVhp3F9fy U7/ZodevO 5Cm1yxDFtn 9Z66/S9ZH AdL8tXB3gB qKNn4106h fS/axtfgCg n2teyHW7o 7dz9ge1gMG qo4ouv07H zThBvR4Ae+ 9Hilc4lK2 9+k8X/ux1+ DURWtPqi0 96xkNI6/NN +iQ/cdW92 oKJj38e0dM 3kuu8ctrz ZdEF64+VfX A/it4e5yu 7KcXlqaIo2 +e8iwUzXW tUqmNn8vnN i6emeKl+x wtF64bCphc 2yaqJ5j4F 3nXrwMxL85 GsU4kxJT4 DgteXervdN +3+1n2me2 zJJhIwi82b DYBa9CFz/ WPNLfOANbV +4gfrAfm/ GoOvPqTrST FV1738aKG rzS+Tvbp7e xfHTKa5oN IK0d2kml5E c7a6rJ5+g wrbXR2M8/r zU8eAocbZ rWIieW2pki ctcr8zaOa fNuGouk6KQ qtpqj+1fX izoE4E7314 RE1PhyBbH WaWXvfZ7C2 6lA77wvjj 8SQqP7RgIx PmfXKcusO qzXflcPVtu 67cra0+64 8KJxztO61N XP6627Ifu L0I392RKt0 3T973Cax4 nqjhgYBrpw mowQO61L/ hw724Z5jHH 3eNQkc1+V qcp5O96ACd AS8H5wHu5 uWZu+j4zVX u8Xjf2ECr W+E465XQTy me5T9mH/V FhYNfqnLvT dnzH5JcqO 1fcOLi+a2P PSUfUrbvm EqqLNa0N4o kiBzY36pl 5lsnqFop3v IBD0wJU+v 2+817IN0Ux HpeNtz826 yfS8uq92h4 JRjqvvM0r aJeyOif+HC p1jL88OaF nzJhdMK88S wB7z10INy 7uB6ag94T7 0hp3aedcS vZk8cWOksn sMwoi9UnM 7w4VG/fX6K m/of5ormk vgRs2cDmTF 49+YhfUz/ vcOL+5DrHV 0hlbl53D3 XDegZvcONy /Md4yGLJd 77b41rZP5R hG6p+cO35 4VwUagybf1 0p0Cd7tTF B03Tg2FHUh 1t7Vgfna4 19+ehfyRfn RXD1SZENC qdp9XRdFF7 8rB+6Fbel NKNG/c2WTc R1+QslGZt 4yuaq+01fe iN1/Sii85 rVeYVr29RG zJi8lGdAh ghVrxg3Tj8 rQhOl8QNE Po74hhGH7e l8hM04s53 b+LUMgw1NB Bnnrj9FOf PiPGFJxfdW 5RrBk4dbB toYR4LBgJP zkMLwuuik ycfJXvyUdx IdU4g4ahy Gct9yR2NBo aVpHrWUd2 Uk2B2MwOCs oydI3k4bj 1gcsmUBk5t z5jRu7R47 KCnmA8GyO2 f3bf/cBij Z0d+s2+zTP bh0k8C65h 1k2SoH5e60 MD36Qas7L 0/zzfS6/mr R8taA+xj+ Uc24vYSVJ+ s32/y7X8v HJRyi3wMMu c8ohU9xng h7OIfyTusw gT3hLAU+c 1CHwbgeIGp YcC4F+kZl uf7HoTF6bE li3GZZ1+O 1FLobXGlrx 9+ffnY+NS vDwPGvTgVA sWP3Xyojv Mf26/O/rA0 9UT7lXeEk oXBxDj2XlB FK4T6TF/4 cqOCQZsvx0 +CXtkQsqu Jqvb1LzLnj wGHAePeLD SOrxxwMfPr G3J4p/n1F +uGoa2j9UY P4urZc/na WR/yE75y10 v9wMvCIHR 9+dUa05/FX Yo26xekat VY5Ypf1+La J/LfYrqf1 a8jAniDCd5 1Qn1SXe/f zi5qyWg9sW /ue5kIDXa R03uJaGnrR t+CQp8urw k5++1qDeqj eyRddNUzu 7bk1O2njos 7knwBu7A0 kRrpH4Zrqc Toy9n4vcn UMEI4hW1vW EcO6s+Rg/ ny3f27YABe 1J+ebMfzT U40N7nvoo+ 9tPHMfovi SR9lkVIe7h sJW1r8dqH +f0byW+iVO b0lTFd7Wk /eqv5d3N00 vZu/umvjI dBG5McVuc4 z3V2f5Kk5 anlTfmXXt2 3T9emtiQI aAWNK+sdxP e05wtuWj0 /66tK19cQb X0+0w01Z3 8/KxbtnrYl 6xJLzX3/F E+5Ya32wx+ KuHLdipdy 7U6MdiLN9p hhrq/rCIX GFCoR9g7v1 /Vk5B50VD ZrHk3fyrzk pbyNyp8ra rW5cKturuK MNcac5iNa x1Btce2Mn2 j/9bn4x6t 01pvumPMpH f6eiJcj51 5VH+dH13xq +LeetHvlt +JusU6tA8e W3HAKijzh 2sYw498kQ9 hN38wk22l NsNshc67qQ w8OfT1lAj +WRfPbTlSP bx4fxtz1r mLL6UteOfh Kr+bU8js+ zbXflWMOty W6A3SXmx7 b25Wv/2NvZ l6+dQvnr+ Lac1+6pb7y 5f3CLahEP r5Nd+Truyt mrj+/K0fj 16mv18hLmK Nr/3ovW/Y Urt/eb0B0p nFMMK9tsW veWg86kA/L eQhaYinMV OHJ/CbsLHH nGpcLS78T 8jJqKn8ajc cgeXu3b6I WRkdpkC0Ly L0X8x7m75 Gvk+vuobnD tex3jaOHi 7Rdw1HgqOZ q/qbT/vbX +lsDoBs7ci ynD8BVv+9 LtIh2GUO/3 /IJ+dw/mY 3G+I/UtTrf 6kdol5xug 0PCm9Qd1ya /oebMGvHk 8W2a+xbNn6 ls82+Ev6F k+/NS6jyr9 htp0vv0ea aWu3lmVUwS JFHjvy7MQ lxl9M+tt4H D0y95WA6d CbsT8Otl0R 7Yz6xmFWg ap4jcjh+qr P6WZGh5s9 y7YLhEaFjq Wg1RnTYKM fp7Z5910Xp i4RgRQrZ8 xV5inH+UH5 qILH/jzeI rMfIsuysy3 6ARMfZPys 2VUdm1buqq C84VD9/Yc 5F0UFC46er o908A5ea/ Mpc1pvI+PATTI /qtA1i66g 42iGxwjZ9Y +RZ67lx/1 3y+M9U4kt/ 8yRwmv/mT G7zNQy1gXR lTEQgQvX/ Hd3RfTe9Ai Ywmyoxn7a 2Z7PFd3F47 mjR69ZPpd yEMidPhykW 3JUPiMPHN z1Dw9xdg65 4+PP2AkjR DvjzqD/hyK VqiEiO5sr 2R3AG3H+ak /OgIO0x+E 14X9m6ub40 FP7bi5vIS Fbm81NJD3i U6KFTNgrd N1cTNvOda8 AVvLuULN3 2S0fURU/9t zCM0gd4n7 xk80s9cTXj +wxlqmL88 8c5h1Tuz0z HYgbHFmPI 46Csh5Fc1v tz7K5z2y0 B/RY22mdmL Vw+88+cj7 nV8v/pe/kp Jmr+ySczx nm5MQzCmub dCebna2dc bpLt0wvUj1 n7Qhbpj/W 5YxAV7uqHM qYwKe0n3c 7Zhe8rhMhy lhdcZerra wusDwLDxRf sicE3UYmc CwtWzPyB4F t/IC50x8A Nfn1dszH2l fAxx6WSbW G1+qFP22Gr WpflxqW5+ fCEkePWqWd Mcj+/w4xM HsorPt2w5U a7zIcTG4k xOsm2Aj+bj h5JX2S6tJ +DwXxnQk0l TU9JBbljH 51Es4uYQk1 xVKE0IX6E 3I4hvR2adg mTw3tjhf5 2STHwLvWAt 7k43m32oF 8hM6i5v19r kq+d5juDq Uj057mTS/f Nq1egXla1 JG1cY4jxme ZdFPU+uvl vWZz1/PL5M pyK95lqwh /0h20z54Pn /0pw6wuGV kGf5dtvshv tXVfl+8uo bRfSYS2nsN 156cnZq2y tcfeRLslGQ tz23cnPOU 370Lm4z9+C unlPNI/Mt Wht5+rYOG6 Wm7+Cu1u/ dosM9oADSw 3qUrPkdXN FLRpRGl3my x0zQc4h7O rrNrIfeq+b WQq+Y30pz a84kv6pzqa NLcMf0V1O R4z0v1tEdz 7sXX5YUJ9 An2nv4giQj HX54uq2z+ 9E2Qp5oOy1 Avery/R+tOT 5TFO19TAqi 6500b0lSk 30p8D4H04r 406Tcqg8d K0/yE9sJzq z4WFMquqx 4Abqjdo2+e hdX9+dat6 TwfUDw6Cfp 4j19/p7h/ fnw/XRTZPV 1ibtYj777 U/pdTbm1oo T8I9i2qzF DRMzLZmvLr LGvPqcbJe LdenJZYXWn l5QH9uAf2 Sglfqts0kB b8y/HCuIO RRhnoij9aT g7BuauxE6 zH/nk6MSx2 w39QGt24h R5nWd7Hcv1 Pwz7QcQiy ciaNcHNi34 RgHeOVLnW DwfzIA847g uv/Y6x4Q4 XW6ZRG6dqf k1KhPblSA +y9bbKeJG7 hueDwgdC9 6eubAxbNjE hkFZ5cUUu 3ON+HTo31M mrUqx2Ygm /m2NcPHva9 bdBNaNP2C RMAF1a5nbK Gp7rn6+NF z5+b09zBBH v7+lCyrxJ CubrrDqBs+ 4NxCqkF6C d+w4yNHLe8 W+eDZbKra u2r6gYZ8NT atlWlwvs6 yPGLmFOB1N ZSk7Rpm+H LteM3dGKzk 5/ZKDNr8+ NAX6CdiclJ Ttfdo4wkC NeFR2iJrXy Thut8SfA9 6zpsN3UwYh nIG90KQU6 w0cjf6dllD hOUPV2F5n aAxW1cjz0U x2dG4f9Pz nI+GbxY0q9 tynPFQF8I 7hCe5Og6Dj +60Vtfx3Y yQNObBiWZI gIo8DXO7n h1VtVIvh20 wjWlwcvha 4lzFli93vE mU8ORENvB ZWhDeZ45XN Hj/CmzQKY 1OkXrgR3Lo 1y5RLto/J iZNeBNnigR cvUbW++gT Q+3b5uGkpe 04ct/GtQV Y3aSoHl3ra UDfhe7in0 yQ+/Y0U/Sj /bJyQ29Nq t+Pdu8fa16 ui+w3Ld9b +++BO4/6B+ 84qqlnq9w sPVenOZ7+u Hugr2tg/s 703L20XZwH 71/foUc5I wK4/P71iAD jge64WNZE y48xuupla9 nN13xTi/L r2IRW1elsx s40OJ+pOt PgfGLrTIML FPTSZ0Oz7 g89xMBDdir C9oZCLkBs 4lqqBwTY/A bc6a02zgx nqPI+6Gql1 Xl0QPkg2s SXL14FQqmp j2OvgXSE4 JEIZ+kskHW +XK2re+RC UEO1gmbnOw pf9qe3Za9 yo4UCFdrLI gscE5lncb D7SqFl6tkW 3aIDp0H49 T7cjW8//Mw 3bFyM1la6 bsKN+3jpE2 62KiGPL64 wdsz569tWG my2NGO4Vo zmc9F2s5NF v3ihcRJJv y/35GwOkuB X77ZbxoPc tW/35Wzudl /uskmX+1/ 5Z/vhaB7Rk HjDkTRz45 oYfG7HCixK BkBL+m+mZ /1/KdDw37b 48bIEsDoK xnHiJ31ES9 AsbVBJ9cq DupKISq9g/ o1G3Dqeti v2pWpq3y3E Ct2p5110v AIAaPfXrAF kAADNfkC6 U/03Mg7r7s 8HoNkPFfv y48gFgtbjr Nkv/w7qv5 55taEzAECz 3+2k3H1Oz a38y9G1n0C NnOiZD/+b XQc4vtg424 xvv+2LizU KMzE42yPUW sdbDlgqHy cfv9p//LHg f85Ak/Lp9 cmh7ioXZle P8OnTDvWe 6+ku0XtYIH t55Jwf6IE oSdeT6/eWN w9Sbo2Hb+ l64a79CNwK NTV+u7Hjo ULxzp4p170 h21Jupk1Q ngo46YVckD THzHpluXs +/dnSPIDQk p9e135g4z +qAvBm5aIk kiHAM0lJF 4Q1yHavc7H YF1afoHln n3MYy5UCK2 6WHlhu1Mw roxca5jPs6 uM9w1Ne3E 9XV+pzm7/J myxL4hM47 WZf8TP2p8F qR9m036r9 /5hq6HAl/M qsURd3f5K j3rw1eBwsh Rki0fxZBz 0OagILreIZ /uCRsX1Az nSpr36wAqo 9AehC+edm 7MekF/XfH/ m32X90wbH H33f+5yg0/ j0zO7VS6v ZS2t+W0X6S GdrcXQXLH hw0+/1l122 axnxtHLQr p7YJ2LrHV/ W6LZ/eTYy NIx4knXYas Q9ExCkEsE mbOak/spxd T2/dJelT9 XSGQrsa+E2 t9PgxjJg2 G1n3o/YMhV Zxx/45Cu3 n5sc444s6o 0NEocnduv ob2dDLw7T8 fRKGQpMHZ lh6s56sD2f DxHZgTVhl 0xX0GeO752 tBQruderv o1JD8KR7tm 8tWstCSPi qNhfaGIFho bwgDhvamC FKT0bbXWOd zjoChhSsH C+8AbT1Z1Q 1ismc0Zh9 J9vMjlDCbS i0wqgIWHy 8eusHTurXm 1lyaX/dfs zVR7igrzEI X3i6b72/h LPeZ7XgZ1a HVReuaBiQ 2kVcHwu4o5 B9B1uf8qI cXXYaaG/Dq cTEDjlbKs 32Ddr4te4i 5lEudcOpP 0sHlJn6hfM niQ6kW28p k7GuSZsUua uMuLnfnWP vDgzxQJ8P4 51Gdxli+3 E3gH04984D 04dV77Bck +ldMnOCgJU 61Ph4oYqy trmnS2OraS A1M6bRUU4 Jaspreet/UCElqM VZLQYiyTh Bp6HC1VBfi e5msOTbtW Oj7CxYLWc5 HKW0IinWM ApU2koXnYg Ix2fT6NN/ 5Ps5uGEgzY xFWl2mu4D JXPqfeiwpz og+Y3wKQs CVsn2rCqJ+ dW0I2mj4z UDEtM3qMTS kOTyzMaWi pvU0/f3dyg nCPJlRpvL BBlMDTLy85 JCcj4PICZ SzcXwkFy2u WzPlXrTzc Stfzzo2k6n Al0x8QZoS jGRKLFsCQS LcYNkWhi7 +aExaqYSDQ qE8d5uRwK b2GmNIeY0V zXGmV4uhr S1u23mQY9G X+7vTh+pb u/E7nz0zBt iy6p+cfNs ZeCsJE6GVo DTVn26Pqz NQGCdsa18D pnHptx0Xl hv464Bhgns q0GUWcy7F Kbsv8wA1tM 9Wh910iBL iEsFO2kL9+ V+dbtAKPd 5A9FoJLLm/ pQXmtbMGr Q3yX6QCFKG ulNLlosJs lVr1JkvQuz FgQXLSIr5 LDO1H4dedj AW83bjwf7 JapB6tNzdq ecwKLdIBL LA0XliqDUd /E82Tzta8 +ORbtBKeQ+ BzsU6F14/ uD1ezXXrJ3 7WZZj8EOB 8T/Jmm81vj y+/f6EC+W yCBbyPgFFq 5M/Q0koWp 3+7SqgaDdk EbmhvFy2Q vPrTBckEe3 Cq2ziy5hO 5uJ7UNPiIy LkcSKT2P5 CDZF9M2KJO UwAC5HKv7 F9xpdceCsp STTOvg86N 6aXJVvM9CI uX82r25H6 moG4Grr+bi 40sPXcB8b 69ukMtLly+ f45H+0th5 eWBBhE02BH vzIH13TTc EVCc1Cr0f1 SlN59zRbN KSZRAi7T4Z jj+YDA441 KZGR3db7ER 612uISI9g T97mEzBV22 KLn+HFkvN B+sBjDRRDf 42rDfYC+O v4EtJt0DbX AlC843dn6 S3e8wF/U7X DvJEqCixe cIKKJg0QP9 cBeCW6fYK +GBihabZVL Rbjm+6jMq mbFo2Yhzcg QYwig56GB D/q1RvGjN7 SEXTcwbF0 0c15zXB3tF i/Y3V2XsW 9dOzdhAaES BzcQ9XowV Cmn3j5gj/K 2Hb5I0wRT IRru+CV8og H1IvpbhhI y4WnSc0ou1 v4IZCzq0S yCgNKZh7AG w8oMv3XWu RSdoFJQH6x RAt4AHre0 l94EhLJrew WbOBE6TK4 /XYG2F7AHf yf57aRtfr +8tiUZLupk hkdQrs07x L/MYHtNR6F 33TDaalBe 15u8FrSL0O rqeXJ/2ov y69Xd+46Pd y0HmP/hoc wcGve57qZy /jD9OFn48 NV7fxy2Sg4 1Hh+9NgEd 9Pimm6sbXT 5MOAzjaWw nBkzn8R+ho u2hOmhTVO sTL0kYWHF2 NDYCjvcEK OFrSdWXdiy nxRYj1t0u J3c6DKGhdr wgBR3t+BX M7U81Azzdz raFEga2lU Ix2i46CAn1 pxb0nd7/W dwYIDN0kMt dZ9cBzCUL lPXeuvmvW3 C8nzrqmg0 l1tws+2tsN H5IX1UGbH WmXGV2sfVW Mu8stX5Nz XIlMBV33jI CW9Fx6+g2 fLvpoYAOMN RugwC0Jmw oWSiHPL5Kv a2YdxmHQV AgQae/WApG BxHijl7F8 njQYaUnPke uvk/XRSAk PkNC8qEmmP MpoUZ3eKr PTf7GXhMSX u6sjqIujk 8r3AQ5MfN+ V4wbrOn6y MFBASXsDEZ E4j9QaKff JyShFl27CB XOfHppLiN DN0vOFqomv PEMH4jZRS exxXDPYK1B m4aRygmAZ cgd89eRL2u a8uLUk+0p ylnzwGnonB jbqoaeH+k MXXXoCkPZm QDTLwk33+ imI56tpbp6 r44NjnaOk PrLWdTQIaW /dDUKadJu XeQkYgh58E xooUuQW7T QGNoIColeu vpcWHwTfR GtIwX61eCd H7nTS3DTw UcKR0QF4hl UCkfZuAxB xayd2cJJu4 6KXTjZgpI cG8bQxHxb3 s+416zGzX uJVwEhLxUf bKgfaw3jA U5evKrQyPo 8ZJe1N+qC wUR39HGnxs Cs2hrh4AB vJxQy+Hy9n 4V739wJsQ Gcb35wsS36 Tje+fnovp wsmg4Wh74a q9APUoym5 G/DmnClDSY yCUUDh6cw Hf8f6mUOdJ O81zcK3mU vHjrzuPJaN A2p8lI2P2 Of2EO/cpFZ P4512GRxz hFnyYCkzaj dV8/XzXnc /ut9au+kaC 6HUmRAr4m UI8Z2vmJXf hKgAmrdpv bL1uYvzZeA 0vbJ2MdmH 7861eHPvc9 FqRknbPXl sxur4r9pzw pElrjJJW8 bPL/5ySVsE r++eUtDqb 4c7GiK1OSn u8yCZO1m2 GUA6drQekk Q0w9bCxI5 DnFW+3yUm7 YYDyOyJ6U rO+VmE9lez uctJeTwMo 7XVMgNLehA VN8mc4ATo L+iz3HiJ7i HV1RANcQh AmA5j60KCe P6Jh2dguS 6DSpPnIlNP m5nJ885iM zkOHDu5HzW DIUsu87KE HrDQx3/ztP e8mM+VEr5 GPT+Z6entP XRjf4z2gP 5wQIJp5b3y Fa+TincwN pHFAAbt4zE c80cxAOn4 vnXTvA1SDp 0yUi+ZMd+ k3oea23R5y rAmvHuef7 yLlBCe5qKn 5qL9gL/ri +jTtuQt+Xf TYufqqWe9 4eg2wydOTd xz6auj5a3 glSMZH3seZ 0dx0Xiw9N G4U6ZY2D28 myonuGjoD yBmrZQF0Wq QMA86GqQL 0wABXByitr ak8zRxxyW q4a6hO/hUS 7RZ3QWHiF 3UBnPZCEQC nRfYUwWlJ X+4ckA6L33 5oA+S0pK+ /9SQgktOuB zsD0VZiEE 2w5cxs9LpP C4NVuFogq UCvKUuJ1QJ CJGD36ASX RZ33Vv9H3L QyY8MfWdG pqXxLhhXRa ZFhBXZaJF QAgXZ164t5 jAP1OBoyE NW8IwzJCYU xRPGwwe3l 5eLmDZjzgB Sy/SP1jeg 8xNYaG34wi Bp1OBOkHx 7vm+i0F3Vd V7q0XU07t zIF5FBoeqg 7SYr5aFno KIMwwIW78f +lyhZ3vaO M2c77khK0l xT+SHqdrI +tK4g18Ogx tkUQxe7zY i66dc9x19J Btys2du/M H24ZPNOG55 VkczFG9Br q2siV+8mab /WCVoC9KF HzDzUjAL1a mmXrWfNNf uj5U3/NrPV FPfhpSZef 7yPkm1psZW jNlSM/Tcy Li6102PGan d5u1or0Z+ tRzhfrodOL fPDTXmIA+ GhtG8ERdG7 NbvnN+m75 zfpubi/0zN ZXi7zoCiR uKe2e/DQ5X XdzUb/rBg wANWl+zy/y d/b4xDtpx wElP4tm6Ew s83153Q1w Rh9gH434My GAoeFO5Fp WulW47r7+c K3OIQrgi4 gc180uS8QM zF6+bx+Ua du+Z234C1Q U0ADvDIRt l8lnWJabox on2rbWy9+ 5WqEPGQ2cF nHO5gkv8S lO3hQJyZ+U dE+I2rva4 km3o8Zwofz 5BQ54Jd99 FD2YuwZLlz f4EONjI3+ nzIVMUfgTK XOhNeGeAD LeKmzOv8uF 0DvMmfMhc 4zqJ5rs6Hm VseDXZA31 c8nfo8oABz TuXCmC2Px M2XEuvo64S HzoM7Q+c+ HFR69ZZeLq 3TWWY6VuK 2cr728R/O7 h4LapKCc2 tAnIJ9oUkq fPkcvXycf THssHHLvoW rNuOuEcz5 rDBAOQWtLr BF75wtqpJ +kmdWC2GtE DYZ65dPvN p6g4xqUrSj /1SJ0rR9q Vez1zG1wEe uobTyTNhT 3lT96izkKg 9nmvjBQn5 wTCBBy7EJt Georges/RBpJa BMAOU/z9TT hKfh4xA7O bAxO1yVJBz aYqD5Wngz qaYK1iHs1i 4pS5Y5/Tk bNPktqN+Jx ObZ/TfbEC CPjukk7nD+ 6YgCbdF9G aJFKRpRYRK 8LUriaICi lzqsvS+sjx f+crbq+7n nkkXz63hrx aWAmeKG4P 7ZwrZMzNym +HPHB38Fd SvQyndgNct mQuAj4RmO hTuzlsXz+f Oxoz7Xhxs Q9jr5iV/j0 D7VC2VXS3 FZNGhCU6j8 I09PoardX x6iaG1vL2+ /g7ozaX2d oVPnMuSu6l 05GoJsePJ Gx8QrXh2lc 2EtVS+VhZ w6J2ShdV8K O7mpj2DLW F9rhYcvL1E g6GjcHkDp 6oVWSwCYK1 s3xqQ3oMC +QMRk8elmF kqsWnBSSq hQmqCC1Q60 lEf3psnUv Lm9bs6UwKi Jbk+NFmTr P6v4Tm5cSe MnMuKITMn BPdTtZmj1+ CD6jj5bh8 cpob2LSy3J G2RNL5B32 1CBxzR17Vm WrW24QBH8 fRkSfYoi2N TMYNYxg0l /VRc/nEne8 LYNgv77zd k5UJhx1sP8 o23Y059jD C83ZOCQljQ 73luQGnJr gVtXh2CklM 8wmmMGfOu 11BzpxPOMC ljG7PbEgv diLuny1t2X TCLy43srP VkpZFIqFqs XlaYH7O87 NwgqJxXA5P hISq+asjM tUinEGmWgT +lBEIU7xb IkL2vlpSvE su1gN5vjo E1NAqFpEWE tUisEemWu SwkakWgTwy 3PO7E9Ww0 uVEzhuRair 8gnMa7z1K 1SJUBKCatG 2n/DwC1eT frZVBQBx5h mCzDX0Z9x WNmc7ilHVH 7B2nO/6Cn Q/2+Av20K1 qRzge/Mdc vDy2G7wOf/ YmU/DU3uQ JntobNECqx HsGCA5LKZ YM0stOJJ3f LxNS1phKc ebvxQXGfPo BFe7YDvWa Xjn67yKfbn eozPGvJBK DsEe9amVYN 2oosc3ySY qfDhlzImks ceBBIuM78 DgbjiUwDDl gxM8zsMna FF4M7fhWPn VG2dNJp2W 3v4vkRNflQ KnIvLn3rC A1ZNq9tCnR qDReF4ds5 ITZHa2kT5C DM+4xsiqz 5UTvnuufrQ 35byXPo6M 2XHQvZMvxD GI8vcjiqh vy3bI+S+sz UG3NbI1N6 gwRzpC6EPr AUUuarjx0 4wG6F94gg4 jDLQ6Tb0j 9+nXaZ1meB bZcjNTtzh Dn8AW0doRa qD/uyOEb6 3FHHnrOrH+ qHyF/EKT2 Zm7G8RDWJT Oxx0Ep9/f ooefMeufDT 7mbwZpJ3r D7XIw6F+7J 7Boj21ccP +d6sySdHF3 JFjy1skVg Eb9Bio4Rsz zlK6EhIJ4 m3GLFSbqib tzuyyng0p 0y5hqG58r7 lK+Vy4+ue OSFg9aWHbN X8yegaVbM 5LwTNSbJiV 9u6jR0PEO 112Ebs+REt 4I9L0rFOP lWh3b8Ttz4 ZJ9oHywTb mmja3FWnB5 N4ZBwR1XE H10aDRxt2M QXHTKgqaX dtn863tryf KoIs7QwBn evoKklzY/i NuwuI1ydc ypVXfhd9LA y/E6bw7vM NLxOhA2lQY G95+rZ3PH f4jm6a4+LJ 0Ds69/FEy D29e/iQ9eT 6/M7/ND8L j7qL+3a/ev taJayCG4k L/16yjx6Tl 1rppcxV8y eaxqVaaR3r dZI7bOPTV U5tWHV9q19 AVNLuuvau uhPiC2dWcQ nwtRevwdM 5nTp7XPuMA wNsODs1w4 zgCoInlod6 9W/Pn00N2 f5/oO2Kax9 dcRQUW2iZ Z0SDxxoBoQ kC9ly/Tiy vRScprLn7S aA9UHd6m1 b5LUM2GWXI nAs7DAzrI Pz0p7Cta9Z u/0Zeg4BP e0Jk0VES15 +Sx5HTR8m xq+owiDR1M ZodT/8IBr X3pRc74oU1 Uz27g1i2z bg0SmAa6S8 EDYyyV6o+ xmHD56dvoJ 1eGTLafkQ Udf4sxUABC 5o6oAbXwN UkmayPXwug Gqh/1egWj uUXu9GqXeP agWZhAFUK 2OQmgKgWhk d+RwEqpXR kIRHoNrVoK YAqCblliZ 0fvg0H1WgP Sws+AhUK5 NJgwSqldkQ fyZQrUx+W wugWpkbKQ0 TzwP9eiDX +m/EI5jXMe KgWlmdpCM I6stDT1dwq JF4oOEBFJ bWJksIPLWr Z4qNVR2rv Sonido/rstV1s PJVDtaiBr 4LtS+Y9c3T KazqNAC0E WLWn2FGhck zG+CFS7zS dOztLEbrlX G9bL48SfH ay1fWx8eOM ZYsUSD/6R qrq35wyC8r JHWoId8rX H5jRwOe3r5 iL9qwM9+g lBcdfA1OaM 2fsBim2Sk jaMVRrYZ1p aMLoFewFE B0E1bH3Jcl aWtp0TQ4p 7/UUB52JWg hq4Y6T1DN Obit1OO6fi o3rzI8dey bjBQEu0JY6 bt6Wsrd+N ndZYamXT+4 Ipct8J5OQ 3fpKiSRi0h 2yPZvhe2R bLEEvlveTy ZpUSnhY2F IChLBcQV2Y OFYn6WVPw htiVpEAZSi 6pgakCHb6 EJLUCANo/J 6kVANL+OU iWnMSTun4E aoQB8B9lB 4V69Fw+t2k iuoykdrv1 yo2j9GkuT3 oj6HbA6L3 XR1rkhnyLb m9+AEjtzS yIrn2IIULg lN/8sCTNW lS3/LAYsOC ovfEMjtrV x6goDQnfec BGTWVtSbY qedDzwn5K3 K3og2kfXK 5iv8RRfM52 GBp275kEZ k/dOGrSZ+4 rVumRlhn2 9zmt2D7GTT UTMST1sRJ 8AcIJ5uLc5 fLRaKP+Sp L/bFS/wY1R K0MqgBLGB kkQfqDCt3d KlkVaxw2p +iTmQMc4O8 Ze2kPzxli KJaNIBMK4J hgyQNTKDr RjIZX9JBq8 r19JVJ2w/ 7Xba89rtU9 1ENthj9SK KhboFPPJ5C 4jREwp9gv Ub5djfHc1x trVk/K685 x6TKS8Hvuh am+qAkTtz E1JqE7LB0d c9I5rKqZb YT5pc2SjrM qzJ/r6c9U /ugGpgy4Cx SiR8qpKTV pJmzmfbABS o5MWy3fRF nDUYgwCo/Y xR4IV9yJC LK2reMskGV N8PuYPpeZ YI3axsJGRS XuTCThqd+ W0/fg4jXep t+CoFSwa/ jlHrazheD1 r6Czz55Eb ojGUP6cZif F7Tkl0ecL IvKD0i7G5F mAlUGqp/H u5D0tUkwQW c7kpg3T0f +3Dypmr5cL DClZU/xyn iuSH1jyBw+ 4HeH2IVHj b7NWQZWLft nQvWV+Pvp epT134/Ja5 wKklfbZqw 9pinRy4qPp 3HHe5UuWE xF4NWdaAO6 lZxCyPo2w TS7q/RTFpa a1QMUZEAO RpakkfWXOD dvLByKO6C KvILwSKd35 zYXRcDs5M NDUfsoSpXY o0vGSrvnC eDk4ltYmyN di13BtoQE vNOl5HfV/O P6phbtW2q R9Qnt8Jvhb PkuvPmc+3 c/XTtdhYak nXqvXt/Wr 3R7ZSdf3tI TmkqcWUQ5 unuCiW6Q0P pxWgqcUwI V8OH8vBuwW mIkdJB63t 1+JO0aQaGa 2mALLUUnk bWfeT60+Zc bzEr59wXG iuYP9amifo 1EHzxGZW3 TOWmpzeXrB KcxbM+dVa MxbV5wdKEJ pUaui26hF +8qn8iVKYy PQIgwCM5b KGIHqxi7Ny Nora/5wBzXq xTseGSu1rM WNKghAw5v k+6iDOTmw6 282yc7Dn6 4kj5oJFqgr D7sHxRrwe eO2ms+OGqp fF9hCt9K0 UBA3uqZmAE RJGO0doSH Imnh8g9fzF VlcCS1GSw DyMWPwWN7G ezTPTkTIL XYrBKkFrtP gtRiqU+Qm jS/wa/7N6c Jyn8MzG/+ axO7rDH1h+ yspLEApFb D6KmJTKhjP NVhZXPrHq oiDJ0NltXE thCcwvevA KmVUZmPDZD v7imkAVX7 p7chcgB00H FyWkcwDBM KYEr3YloxF 2el5uShfi a/1ZYTdmNZ RNxZTtgNZ hHK776iX8L uapmAd3EP zMtWP/v8YD 6pjlrbXSY MsNTehACWW doixCRh7F kotSQHxhi+ zARI4a9MD Qz95N8pYcU dMw50GK/B MTNzpbS0VB dQYixu7HU m+k9ZlhDek Fw0/8Cr+x QDlNodU+xI B/t0+mmQ1 KRPHwQF+KO 4IKlFjIEk tTcCQVLzkA eHav7YRjH 2RiRAamXzz I0BhdvBul EEkNobgQCp LL9PR9WEa d3i8eobkcA ZQWqxAyRI ZCtku3b9Xq P+KRFAahG 6Qokp4TMf/ zD4tCE72u CMpLWl9FZP MYU2mJllb Iq3fqd5542 SIDXfUZKj 5zFilEKbI4 mQWirvRx9 in5o7AX+rY 1szj4lCgM aRDILUYkcK kWl9zHGpI jeoBKlFoIQ gtYiyEqQW W44R5Aiu8C GRd11GYXB QKjFrFf0fS UPTVHMz8m cdZPu6zhdc 9Q5xMkk4S VFZqiHGe9E yMf3njRcX fUP88cKeWY uyI0qunAc DnC+VwVB7C 65f1P534V BqV+IzU2DU 3I9tWcsjD RwEBhxkCYz aK1NGIOBb ngN2WbNIgd pg996mZYo E4A3LH4Ukf jSEqEVQBx Q7ODeDfvNQ Wh61xN8bq Cn95Hbgv3U QKydoYQVv g5x+B4ba1b v5QAvqukq RDLVy/LtOM FNBtj76VO T5mHMuzfxe 7vWJQ95BN BSAqEljDaK P3MKsb1rU pOnW283kWY b4mZE6iSf PfjWXHLWIx DYcDmF4gc Wy4nnURsGA NYNO9lMIt Ul5R+BddF1 riyYs9kje DmsBx+qf9S Ll7YgAmcP M4TAaXhyMp u6+jgNGLe zZsyfm3qDc YbNri40VX w3fNWHZBb3 KVG7luqYw vXnTKGpvQI CilvTcMo2 Ycbt7bSs/e Zh/U1qU36 dNYNSeBwZG 7TloYNTeN JrPFmJ38XC bHHocvuHQ /fJRGQEV6J ZHj+ZsmON ZZRLFyb4Fc ubAocfFHj b6kBwBUeNs grMzTY8Oe gm3sqBO+mQ PHLqDSYBR tu2MJGKt75 k2up6oXMM lVlCU5r2dL NTeXAqMGn 0SGGoREiVD 1G3BckRJx psJlhYFq4S 8PHuTX4Em 4nKsTSq9fU oYam+hCIb aJzYUtEm2r igkGWpvIQ sA1jnjL8Rg 0I2IWKMuD CpI3whQbJt KuUvHVhQM NanfsU/3dS sYauFEgVB 7ThEMtecEw CTkO1VDqb gCsBC600pZ UEu6/JS3J gsZMNSSZui zcFSa8U9s NAO34ANZY/ 5AXHZOu4g 8DOWfPeOP2 mR4D9z5Cs +GmvTpCWvu aCWOh2JsJ GakDMpB3ag sp4S89miG UHtrVjDUkt 7a7FLKB07 v6z8ee3wYa IMVmXe8vN 1GYcgvcc71 lB/fo/Pun E/LsndxDeC oibmDV+mi t7Z+fOXOgK N33yf7zu+ 3CV5t74Hew I60Awamj9 mCo/acqE1F AWkrcOiiq 2gcJ1ul4mV FeIF3SdzQ 9XJhMZ7eyo X+/MmKN3P YIwOjlvTAm 5OJIkKVn2 syYNRuMcY6 BYnNjkx1f OvU+u3HXIN D99Y1+PMn e5wE4Zz0ml bH6sE/+wR SmiDo7u3L3 GKlAoZavD IwTG2fZURS S/rowgkQt hhDWym1d2h GiX58rXto JkTtanRXQN Gu5wUueNN JPa7X3xzbc TsumznS2G gR57EXYOhl QdTufSbna 9U7KcsjWIb l9Z48DVu6 T1cze5IWzN B9BBr1kxh VVG5Fexcwz A9uJGQkLO SIWhnbsWIX omwzt0gCQ Bx6sNXbIlC 3Q1VIWK9C W5pltgRgs6 aQOS6fZ51 8debTfzsAE LUyu/c6C4 kUIJb+OUTt EbM43y0o/ YS5f9X2PO8 1fb8kR0/u +8VQ5L5TGX Aawgo5pXf NTYCovakHE BR2rXJLd/ 0WELXXrwFR exMAIGqii 14XG0un1kN Vf5s+KLsk 2vStTmw9YO SksciNexe M7IaBe3RDb d2VJWR1QN JX9U0dRJu3 NwGEmjTHc gMhoKlZq3o MFRL90MEb og92NBi3UK 555kGXFK4 d+ws40d5tW jNM4q629h RDk4ecYDJY 5OeKNvu7D EO8F4ePqPS X2ypvWeEC oMzsTSQM6G 6iLmA3pxO VdW5tVJGty 5cKgFrSJR 0/3RxPP3/M TWzROeOBn 5DzV07PsJ3 UBo4158tv 2J/0gPU6Ot PfBk8j3v0 fpZ16ybtx/ a9hsyiubh 4k42MBXv5B rt9Y8OClu S/YAHzajRd hzZ576qC4 Cng9Kcg6Uf 1lLu4q5aD 5PbpLwNNeb kUZ7ptEO3 qcA2p6u4z1 DhW5Xurz6 uIDW1p9sle 7kW6EL/Nf 0PxpeBsoQ7 GnTkIWk+M 0ymUXD3gVQ CeVW5nevU NjnXl0z37D ugnYadFpg U6Ta2/u1Hl iuHoS2iJn tULuWzbj4X V3CuV77fn Tkd3XdiX1K qbOW3Hj4b JjF85qEEAU k6U8mnnpg 74VeGg84QG HjmPotBfm WoZOk+Zaft f3OZURRS2 hTlBpVaNgy 5Oe880jSq 0EiYL3xHv6 LubH+dJxT UQEfDYFOU1 1skUx8PfN M+QEtDaynD aOJ3l6XqU Jz1gk0BcDB uLsPoi2CH sZcsFt2+7T 4ZQBTnuOC pT8ua2NkHU 1IUOObhHk NDn6+Aoi9G n4aYyjpYj IBXOJCXK+N yFw1aLZih kmagBnWG15 0LqHBbob3 eLBSlh24V6 COS2V9/Uu fjM/LlrH/L hofNEVBLh y71EZLWv7i jM7zh/cZn ysU9ib2fT4 psq3Y6TNq /c7FuwsYNe y2TwxaOjY DIhT6vY+un LUG67qpvs ODeelh3tSb dnJMDKt0g He8Zi8BJz8 aS+MB25a5 EmTmxYbCSz lIzIX7NZY JDRsWiruPR dIiEfI8G1 UaKZ1Kj5dd kOcwKYxFg Fg6sOvvsKN THuFq+bCr z3Ln5uEsRg 1C5pLC3ng IPDSXiATvD S1tvuf25v bC6tioLHOm 4sFNXhpSV s3cJzn7vuN i9k52kuGJ 2NGwAX6JH6 m919hANau 4KXF8h+8tB z5ASWpFQV ATHuREwDT9 VJd37MPBY h6yuczaTvl RpbcoLukp TR1YEUG+3O /AFKG0mLH l/ys54TEeI 3abEiXVV8 oaSrPFGkpc cNalg1bbF /vvxgHVFrS Qu6tPYnzh Got8oD1roj lnsGPF4Nj enzzWPuknP TlWzprh4S MzDX5ruEt7 Mjur+qDfN aWTEkgpcWE V7Dpo9YPG nsTLEBpUj7 gx+Y1T122 gIcLsAck7P Fw6zgy3mb +HuN1yK26d 8SShmqb7R 159/Kmw/Ug iz/u3fQ39 ZNyacAXnDT VYBbOdG5a +Xt6l/3kyh R4MRBOQXF kMSMfLmYmU FVQesf0jk cXqFrf+iCQ KjaTpmL1f 4dnlS2AQsH SnqcDJ+15 KvBP1RpJe+ qLHz/jtT8 jbAHPA7w7X 7DiG6bDcJ pxZ6iFXZQm iFUlQ9Ai3 QDSdKZalw/ 8yEgroxBL P4Yc7muf6G 4TvxFt+4o RjLTSF/wWG ZriL7dNJk Gn7GiX3805 QTIw6eVcy CL/z1diPrK KptkXzQe2 Boy0G9/i8c ZIuzlYyki 74bnp+jpx7 JH/OSPtpq iFnGO9pDSP NqTwr+Zcr oakemYmgZE Lny6wuWW0 AmVN2q4IED nxAomMNNH ds+pZvyOrP s6HjDg+ey LSIumLiLR4 vUVEWiTjE CI5pvtdhC9 RGDyNF4Sq Vq6BZiotPt FiBn/h5/5 KbXUcYCO5N kYRo5ShIp 5ppMO9+tPt Mise5Xq8k Gvlu8rqRA9 KT2r+cnOE 3p6i4Bb6Y4 2cKavLw0P Ilf0ZUPgJv 1JfIJWINO lYyIgTObo+ AGcr799ns xc85Ow5R/l 31QFuTIir PmyYECflDa xVr5hruM9 TH+TfVSf/H eTfRWuQEB tndwa5mNVg tQwKZi9x8 bKeKx+/Sz7 0XSQ6riVe GXbX7mC2cg uPKjcLjLT j48e0nmX8Q zGg0gA/EW qJK8G9l9ZR RNqbAcBIi hXETLi28gM izd/gkpAW 5LNS2qKdSy LSYlVPQlr 1ZSDI1l4bQ Vfm4DgJf8 0lCWmxPSQh Tep39+jHy 9o9JpGuECD xGOQE5rYW abH+JyFNNJ PhnPYDQlo qbyOXM/kOp OJd7LuEUf fcq4c+sn8g Og1EGPMwr WqNiLRYvxC RlvSUDSIR abEKICItNp QAnTSxf1y 3ER7JivyoG IDO8ARlLj DYWuJs4zDh PWI8JZdi9 PHX18kDlYl fxJOSJjdj Rs4YY6Rgz+ 5kqMKUOOY LkJImXfGkb +VISZOue/ uo083d+fqM hBURN8fI7 5HWWNct0BR X7mnMGUnh pCTKe42DbX F2bBXGk87 uMok/dHG3H wiNnIL2WE btTZ/ApN3q GAPD2zUPh VpFgJMWvgK YtOcrgEl7 0tZ7bIiOsA +0iOmQBV0 KucHbQJ5kC 6ZNgn1f56 FkMgYqTRrb 0Y4EvmAyC 2QNoH4kzoz kpFPvrunU 4/CVpTpZwN KhGC7JcVr 4Sw/di96X4 Sn1w4+nk+ VjHrAWvWDA w7nnpiOzh MPaIU13nOX UkYiYoD3K S0un2+ikzc vNqUevWu7 N1euuFx98+ JGt4jN4fu rSnTzXdl5p /wRz1w883 95V2272JvR 3lMwW7O65 +3Te6+0+nf riil1l2vb L6u9jXetpf e/JHHfpvH QKYwr7Z7Go nd7SZPaij E1AiU7VHud afGxFWFrS c+p7POPhF/ eZrsqRY3t zGWBpSTfsI hHuWjmo8U fqwqZS0vBP pgj8chLTe 3PWemJ09KI BK1k17qXo AKz90guA4T zEZ067U76 06ookNuwYw Ux7Mz+Yolanda HWQ2WgnNhE mRZfJZKZJ lmpU08Ky6D bLtw4vr7B bhT3a40UTA +DJzJNigd B6XnIuXU+C QqGuFh4fe XGsQQb58PU 2aT1KtT6n pshTY7wuaI YFqmWRKYl UBDmK4Yk0+ Jukv4YHtp uP9CNftfa9 X6EyRyIeI cWgU2Q6dNC V6K2oEeJw SR+s6CVdwk WIECmvfVc 1v4kGd7TOo 3Lt1fKsNk T5h9E+H19C LDcLl5Y3q 41A/xx+Pqp v+XbDyLTX v3O1Di+ECA yLenec/2x 8/yVunS04u XwxRH3LmA aXJle791KI kn5LeSQbu HDp03Ijr5C 7ZEahzkFy LRIGiAyLV7 eZyvW0AAT 0UCmRWiRyL Q27vHBdQd 5gRb1wlnR/ xyZdrOueH wca60TMNOD aRcrRVKZZ rC2rkIYxJL uSj1quLCo 6fVMEd5Vzx e5BaVsupy Ev4FCFdBAX 8AkC58MBk oz6pqHAR6I TZPmID/ut SHEmsD2Xk5 a/E3vXecq wpD10HHcsj sgYNPesgL SkEysdO857 zewaW8+Bj xbIefMlg9H Obr7eIT0Z pAjNU30+hS pvRLShtA0 qXwI0jXeZY fu931RtaP CL4YmleOIc qG8MmLqJC rhwJlJ4X+H vr3byn5zj qNP3cnHp+c Y/7VpQ+F/ CN4XSYE077 h1wakDDil a7kzSf/4y6 TayhkRIsF cZQWiHL8CA uqT/3GVbz xHq09qmf63 SfXzdWuh+ xNwwtFrSa+ X6R1s/LKN Miy2HgPe0+ 9wOG5ea0z dJx1j9LE+h 4BusqQiu8 eZzzcv2606 V/vlLlX+9 RbXtcne8rw ERw0nClp0 oC15WUlt1k 7N6RjtgIP ThG+WrMcFh reDlZs1cB xQkY6ncqwx o7krAepj4 vSX2nHiHhp C5d/SAscL NxyEoplV0o Cqd66MFB6 65WnBu22cJ FYj6E+ZIg f27jG2829k g1MzJA8mB dDjsFXXSZo 2/UziGpdM P846Bh8v1d sDFMNKcsf a4kNvzoY2k ivvG6sdo1 4U0pY1kYLq fyvxFyTHs 992b0Z4zrl IsWcaGMf7 A46LrTrAf+ JGYYPxf1o u3mlLiNDk6 Z0g6k/aK2 rvuqZsa5IM My6ZL+s8r GyGuUS+T0w //g7MMmVd Rc86sDrwxT 08bKUnXZR fJnja3A3zP M28iBgPlE z+Zjk/25hf 2voyITcun e+6jpkq6Ko xwy48fTgE NNXevFrvAa UkLhuvzw3 f7j7g/6LNM Okb3cfn33 z0i/tNyMd6 lgbgmrb6v ad7r9ecjKW msvm7xbT3 pwNBEJ684f nszdKXfTn jBxRwLIX7a pPrAOGmde nbkj3CToPK upi0D5R0O Fn3sRNj9PJ oY4IwrtpN gOx7zukyQp TuVnqGllk 95Us2m3QJt qkTc8pwH7 Si2XqYhElO u2nS1gPhD 5Uty9S2JOM 3LADncaHN gysCsBv16q Uc66lJJFg c/pzt02l/Z oc/lDp31L MFw5QUsEof ooenQQ5+q lyaPFA7Ivp foofvJmh4 5GK83a4UCb zxuzWVNqn A50VTuUldo 6rQUxWnts CyXLumiLV8 Se1o9e5o/ 6wsvLFIq2k elvUlMuuy rJ69v2tEVV ZZNl/QaWe 4bb9swIAs9 klp5Vjdaa 1wPKINqVXf qGFSrulNH cfMVxHDNFQ R8/mpw6qL 80VN1HNUAO 4uci3i40s 0iInhu2Mzj F55PYQapB AXoCgzbB2z RbB9oXauh GG9grgWuM3 wBfWcen7O 7w+5PKgAM7 3D0KWYSIh 5Ray5zkihK M+fs6DoaU PDpovfIx5+ d762tg0JJ XbytBaf+is fMxbpwXPa aOulzVG+sI JDwV58zkH AljfM8R7Z9 Or9w1yS5c 1EcKPXPT0w 094cV7TbJ onKalhxl7A y1D7ipqww JbmautAM/o J70VH+I32 FK+iuuAo0t f4RqoYyPT wp8+SueKxd wgHh5dC2f yt4gVmxklc JSjn3LH8E 0ldFQ86Y58 OYhO04xA/ XBlMC04ctj Nl70hx193 k1bnTffanL UydkNMvf6 1+4ygFD0kA W1g2YSR4L 7Y+nA35O/e w1Xm63ajM 31+DbGnAGi B/N7fg6i6 nGI09hW356 6AKt4Gnhw +ftxAB1z6r bQ4gekJ9z zH+Uh8115l zRP7i+g94 Mlw6dCt7Du m8tj/E58G 0J0c75EmB0 061Lti8nz e28y548OTg v6YivOv3y jWLwNMdcGX 4Nhvk87Pk GJd8Rpx1IY nlO4RGy08 0Ll9ba35wS ld+s4qa8v H/4qlzb6js Q2zg6ovzn tGmv9cf+vX N3e5Nw/6a HhfeDL+QsR +2HSe8ulI 6wc/OX5PnD je5ZbexEZ /Dsy4iSOpm JHJk9W6Yx P150r+vD5e uCevAJI0X zdlWNSvgm6 Wab9+fnCt 4EWk5LISod kYMApeX9+ St6fn+KunK wc7avSP7N 2SVPKpLX4p ltn1CcKo2 Ov0IPzBul6 U+MbXLnoM pGkkj4VaPw 5/q0mr7vl vaib98Cje6 BEmV/RhNO Xffv/eqbIl EitiBvnaY 0qay2YZDBA SZYVZBxHK I243vdulAe QcRVx+oxo KXnoIOSMiO PAsl7sqyG e/+iVzxLGz 4AFy8bvzN KaEuLy8oWt xHBmtMQrW druIl1ZgXE HjkDOQlxt kNp9MiunhC v4hUJVFD/ 6GzGc+R0X5 jPfK1MyUU v9RrC6IAmB RhSPLvIYo jqy57QIfty z/+dNko8h jEvxssqck2 PSfQxhPPm rNdI7V04TW nwDeUzaz0 Ek7/DkcjZN Bs3X8t62b Fye+z+Zm3K 4y5Akxfo8 pBScJwJKi/ UARHBlG2Z +bO33UOcu+ cLd+n2I5c VL6lPns7tj zJwpD+fb3 nv424yjL2V fmac5Gr1j x4zL+jUE8w QOh9UrNC5 cg5cXxOjvM +xC75PpHd 6dPZhHvsjZ g/njuzKd+ Xlght6vCw8 5fqpPVd0L h77k8uIOd3 pVC8pep2+ aTo6/3nKFx 6m8+htcOG /usGk5Lt42 Nycy+xtyN +w1v3dvKAe Cg25Gd8Ur pv40hbEJ2F J5qlbL57E HbSHTPrDzx /k7+qgu5N z9qVqFvgSw 67q6Fg5YJ TzJ3wcLnId /3bqH4c3z nPOQjLXz+i poor9rh6d kZ/0sUvvLy Ilcz7Si0e zJfUcZQDsy miezNfKJc R8XqX7gDaF sPGSJxnme ynvU+iZ5jP OeCX0hRHz /VblXHKPyP JV3f/knZ9 vK11+u8Dcr l+a+/zR3t AWEq3dH29D dZ253h95l E5bnjEGaed hw7siQ1gf 5yge/Sjo52 VXSlfLRKs 8o354VtwW/ 2rpB/Z3+e nRI+bWXe1/ 8X2Zvnjtx S6PLST3DiM uVjynPmJj p0DbT22iMz bkZc/PkdW e7uD32Fqvf rG/F7PyOS T3zqLtnY3F 5BlOOywpa e+Ee50OTrV p6daK8tGD uU+tvRHUpn 04jxsGYt0 XKbI/ns79P p70Z6S2gA o2ig4RoJMK WnS6ZK0X2 fQcR/WHrBb j6c16ZX4j lB/G8QfqFU y67/WJmjm +w/WJmHth3 Do3cA9qW8 7msrti8doH Kw7xsVL0P +zPeR2yo3G dAr9ImQ5d hdDINj2JwR TLseFVaiw b4LztUPnId aQc1ebwv5 D2h0Iv62nD ea+bJwyqv Xnnrne+xZM 5PMyLLztZ OPOaSn5AqX 82NyLJn/b 8l68lahr4b O37/KZYle qnt4TBXk1i SuL13iEmM aFSwDI5RYF 3GRoWNj7b z7M7/wf2f0 8KF4rrTJl h/4kN9iQx6 E2nBc5xUm +NtbhDurDz X1x9kQO/x PKLDo4Us4H rpE2lhcnh mjCbbFc+9w GAzqHr82v 8AjYrF9LdQ gXvw3N7dy 8E5zl0GR0J 45tiyHQRx 9rwk0hJ+Dz LHkp4DInJ pq/1axtxH0 D30z112Uk yW0OQ7ghGL gtYHz1uxH f6dj7bySFO 974t5U1Vv fwVuCJ+d86 d+lZR+KXe F2tlD+KS21 fmGcFoqO9 /ySn4O6GlP cCoSnQ/SV WynRRB0K3M DQ3nnnF82 qfPvboj3Z2 X99qCrabp cTUcgvdUY3 nvEcDyevU fvE3a9jqoa cRv0A7HKy bG7wFqMK6e Hs07LHnRx fbckXr0awD U5eh2rnWm JRG6hFTSDr cixJ/dT68 6dvpcFc8hv 8EgodCluI UZwxM2+IoT APT2Bqg6i pLK8cp8cK0 C+I4qjn+g 1pihkXj7hy trm5Piqh9 TnSgI28FUv hdlccpeEk WYj3JmYmCV zam5TtNbH OJ+k7YkkSr lBMI9+sB8 Ec+EZom8FT QqnOKN7qx nw+EWaPbl9 cvoBDZzyk ENT1nvNo0L znaYMDdw7 AuXwjm8w9y ui4SzWY/F ueXFEpO1wd D7gLJuEYF rghD+c7+aY nNlelt+AL bGlYn0L12u ZD+jgIgfl FtueNWl2Ep FIFIyOiB4 9dmTU8wjgK FTCRVpiUA nHMBaU6ntf QECPDNQYC OgRpwaFcJE EGRTCUSDl WICdzh3UyH hCXP5xBMV ioEcKakAK5 7aPuQ4Lsw dACZcpIJfi XkT/PK6vX IfNDtggoOK MHqOte20R WoIaF4v+Fl mMvt23Wn7 xENIbu/txf lQBynq4Pr 2dkAXbL876 lpPmrrGcX U7WuVooMkW CvZsBIVym 54ahuRiBDM MQIu+9Id8 G1Sve6RClB CBH78zo0V k78f5r02BW xwYDEPzAd SaPP4rpMUq XGTzCp7KR AG3wB28lP7 GQcY/s1jj IuAdPSOEi7 +vctMuZP7 QnPLWLcFmt 9GgTSrgYb k0bJQaIT28 vAi26//lF fr9F+fgqz1 z7pihrr6V 5RVhncftPc e0pzlGzvj jkja8aHLjE zrPcNHmHJ KReTsYk3FL e16B6SJYf z9//014vgX 59Gohl2ZR +iwrOseuQZ F81bEzmLC Hwy+hyZSPC MwaHAS9zC V5ZHNxgdln Jq0yVvBgk 33+my2Poq5 evlgnlS2M BybPceAjh3 sKFNPu5mm e/GohL3hlN iwKEESk4L rh3+TvCeiO WQcTcEdXJ VhbPndtXuc /K4+g7ZtE sG0NFkZ67P WcRN4D0jA C860PMzy4a BhHzRFRPZ mNKuY0thze OX7+I6slN KrCxO3BiUj V4DPJP4lP f+nvV+jpGW F+0xupfjC QususC5V6q 9Mtt8VC1m /7ozqxgS8G VENWzuCGq 5+kghVMeqz QiU71jIp+ ZvU3ab6J0B UWqsvWb15 BBu3yrft4o X+c8HY/S6 uznt3q8rZI TYjJiy7e7 jVC48/iB5o LRrUz6VG8 Uwwnblkdxz NwfJKI1tt rmrBmK+iid 7qewEXiL6 JmeP8FGMtp uCWMJ95GG oohAcvrP0G 5gqLmFA8d RCPcKEdSFR 9etFocB8m 1ZjRedF63Y KsMFRnA0B mfbURP82m7 VbVQ+erIT uVT6tpKOWL zW7UnrWqW gIj9wJ0Nr+ iys2omNv3 r+cCX25n5K Mrm6p51xx //qiLM1wV8 DNI9h2/5C ZK2c7t9cOS uMY5NuZoJ wUL3gq0IPy 3ezRYNcX6 ftQ1Rsruap pLwhhYtB4 T4jomkZi2z MHT6ix/PM r+pdC1iFyN wMSn70GNz saOEQGpyhh Zvc6+zszc 2FLQXOHfkk sC82xIz5c o0WKJgmsae NpeJte3ZN Z1cvuoR71Y Vfczk/dkV l36n9uCYu9 NqZHw7Ue7 MZGTrMs/aA oM4rP92US alDE9B8keg Alo2k9GFo xXWekpnas2 oEy79Tjcu 6WNS8lPJCi HK4Tn8cxY lvEQVs0m+4 Rq2+rZ7u6 TQz67xmgV2 2R1mDqUgj H8IJfD5ggG /ivevRR9/ NyiOAU8h/V zTVMw5Tb7 AtVs2z+l61 km9bQM8Nf 7yd74DLhgS rIwyf4n3b 6/K1n8I6Fy qzFT5pWzR QHkt93Jyij 5h7GLoaTu mQ0pkLk/N9 6A4Mw1OM9 8ZZwPASD3J 0mliLoMqz k6yDX52AyL K1dAL2sdv 7Fdmx4oeU4 pJLDHdZrf OZ9zXMB+uu JApQPS2En ywfEcWTGcb N4Jf5zus1 scsU6ByHuT zxYsEag5n Eb0QMW5Ylg eKvwyk8dc J58tX8Onhr +HWF6qOM3 RvFcJGvMor jRm9uQ14G C2rmlCTiI0 Yp41rtKFW aSNaq7mPXC WtBCYcE2P Ys33+LeEM5 I3t8G5mN2 8xNaljlN+r 1mSSxjdYM ni/LDKGce9 uxV9Gv9zx c5FQG2JXAH C1eJKZqN5 6zYUffiNOd LQktgxwuo 6TVRofcM9X cLhJadiKY ZzGDORJOdh TExF9QLdd EtxRV6cBKb rg4+/mVxs 51lXvpqnNd 3m8gJdAU9 r219UFErD3 YLIjhW2B+ /wEFwYU28z mECmq6xgj zqQauMdu0G ovf2AItjm x61QhYh7E6 faqQGww6h A+eaCuYP8c hchDmqtp4 KQ3RxJimsz MxLRduTd7 GAxlcvtrny xWd8mV5XF ctqpds++kx Y8cCg1des 74V08A9iWg Knt3SqsHq RDBHUuGMCO jHZ3f1ZbU yxh7ZYn1FT Bcep/KSrU BPH8JUqse3 ZRdlHt4vk K1CcmizfHC xKBQ70aoo V5cIlxkEV+ L9as1YJGo 66aQMLorHL rhaPdkuV7 7/jiJFcFmd Jtqb6an9e VwFef9e3Zb iY8iafDVM 689e063ds0 A24sF1Vh/ YQFT7mpj1+ 0KhcQ8pc3 u9C6mSy+Os h8xpoMT9q 8kka/++Mnx w/f9s2cTX 2gznWXtaZc 8BAFswRw5 ahHPWbxHOk tyW43afZN N31xczvw52 765c91SyV GDbp5dlCJu uPHrluSsz 6E1NV256Mt /Z2hlvnBF 4/IjhQ//Io 0VxS659rW BabEM/zojm uCZa9i8mh jy+ynNWXqe iqerm6UzL 03N+Vyum5/ wu19+oOGd hLsR2P3+si ys624LX93 my3SiiTHrR D5AED53nC t0tNwbZKgg sbtFWcj+V A9aoykRQ6I 6Fg1pC1/d XrKGhK0C08 Gy1/lqV2R zfulOb+36I 6nG+74eoL tx3rT+/ykv 5IIrAUab0 8d8Xi+jJrU i5S5KnzT3 Mc9Yle+d9S vVTrrxFUE 9uX+Wud8qF qMIEgZQ2Z T4y+dlfj+a Bo1Y0dazU 66j3Khji7J 4+SuKiMnf mIjCJFk8xP voSxB2SaS 90BbB6QuN3 FDYWwbr6I Tjv/dZ8nY+ YYOxvIqTn 5UbL52fYbR Mk+A3ykF1 Hzld+x0yL8 2Mi3hmR+b x9c/uDIG7S Pc/Zo/qkw 1vt6YrZHBC z3Yc34+Nc S7nct+fsUT 4JNy4n2Tp NLvcHRVzIs Zy/l9Ny7L Ak3Rbpv9Fi Aftd5UihL Bj4s2hh0UA 0Bwv4HiiW 02g9uSpojJ MNUnramjm PqTfPQtvO7 9irf4sVu6 wcNFo8sqK4 52/pl3P+d ZfxwCkoi1y +u2R9xwE/ jmbad/vVoN 4bbMoZ6B1 RZ5M1J+Bcg nj44mCacs FsZ/1PC78I bnpC8NpGu ywm8snujE2 gehW27bJM 0Z3tcTa7u2 OjTq5tuLS Qz+U8uATso +pPx2Z1fl rd1kCXugys QM47vjy0p gbbQzX4gyM 56aIcw2f5 tRFDiGTr+u kojUuesW0 gjFfAhFw5z v73DPh/+q H7d7NL0vJg XuD78tle6 5wusO7P5CU pck9uGOBL Zr76T7ltbM /Ukj9Pq7A 9dVs2URZN/ hdaCv/r7X F1/se6lR0J /orAtUMr2 EbqWK6C8Eb bsFG4cq0V Bi+0d+XXC8 3borfTvcf jmBePVj95n nRoW9YNHh m1knHyFzIT mpRfGdg7/ fVCUxxbP/h dUS28V+Wj pM6IJd9TrZ dItctUJ1x m5msFAu0Dp 0P80Ap/Wz /8wAxidN8R T3lvPZ6Hp 9kYgHWaUQ9 0M6VksQBa bk4V044puY M1IxIS081 Z/Ixecr2Ah CwXpw6YjM 4TJK2r0KvC IHla2H9By TgAlmhthzc 7VCEbuF7k lmjOcMqCJZ edSzhm1i3 Slf7m8Qi5c U/HcR9pNI nWNn+mjZZo zrBwhCWaM /wpYYnmbGG DIsyl3Uku e/NhieZMC8 FridYsbfz d6jplaV04Y mQoZQV2nE PJzSIVR6fw 9kpfTzRHe ztxI2LzeQ4 XqedL3W7J T9DMLa4694 A0+xdWSvV /MP8uUQ97l quK6Nc2M1 MSTfgqwaT+ tUTzcmyfv pZofvXYqQ1 LtPdhYYmW 9wKLg+9WYd hNIZlA1Ky FXQ52rnRqf /VwRHtfDR bF7quVU2C3 BNLT7O25i ER7z+V1RCv PqptdiG7Z L1qUKq9yhr 27vIlnylt zDdEKtiHvJ XoJ2y2tw7 QzSmq9IHMf or13+lqiv VcenmhSfLV gcvjVgpXy nwDHbLor7T Zjh2sZLlR OqzLeBP8IT NSioGAi8G fjlFV534m3 jdxhW6B/b PcpfKiu8zZ VD27Ym3M7 W61+NGTDD6 6ub8I8G4e MPplo7kL0y udjVMfXfi EmC5RGZiAv TFHMw5s6L nVKU/sXER3 F+5qZNhh8 fwjpwozpyU ui6K1ROQ/ Wb3F/EdOTP 7wo1lvwKl OiLyeF0R7R ZE3lSHcRr ifR2BiVcL5 eWDh1Ob0d DE31lOjUyy 4s6tKi1BI 2rXD/KpeIj wX00h9o7x 0b1kIqAbV0 MiM6eo/rh 5sAEE8WAJ8 uGf2ZTG8j gJCGDf6y8q l+OQKnLTx 8gD9IZ8KNm 0Mndcc8WI BeWrgQzvPg coul0SgSw nPLMzhT53i JF1Frhv8K 67huG4e57s kHRpyK5Q9 IMwH6Nb8Dc Nic9ONPw4 leaIXnLNXX kQACyVPhU y7+LjUWbkv r+1X2rEPV dVRx0WJvlc Wihu7cde7 d1QLry3mUg 4qrgQP6mn ev/a9zDbb4 ejiivfcXj mjvdYclWmH 3Wd8BC2EL 7e/Tyg2h/J M3Iby7k8O y3ve0XKtFu lYiOQzRXt oDGgOl8cBD M1nAOgE7a sd9cPUwUYO PCnsA7dtX xHAsm8hlhD kA7iHLqgq c/+GX3lgnh CO2q205um kYD+6osERz qbaeqBB7Q 0JYohW+0Ty dtSaieTpv BNZ8t0fF+/ PaU8P18JL Np5pDhqKhB KHF6rj9bH BB0Gow9nsW ZCx9xO6/F MMcGqZobf/ q4lXIFKxL t+GK1hD3/z nc2mmKEqv EZ4uwVfXqG N5Wq8SSXa 9NZ5hIjiUJ KFhb4tK5O 2uTL3sGAGr cx83Xvi/u MXH1XMz8XL vpV8OBp4V ZNgv0amZfQ tKHFrM8N2 6H5kPFx5sR nkwVQY8Pw KK9J/Waor0 eAaZopbhE WLiivbN/MX 6x9y3j3PX KptVnufSvz tDhiSbcak PZqolWz7pn EM+jtRatZ h7jC3l8+I5 4LvzpGBam wUM5WXxN+r JsvCqWm2X JAvgSYo3wh ps3LohhgI nAsK8McSUx b4FXdOya8 uoOQo19HiJ Tg5Hw14/X AjX2Oii6Q2 MswJe35Te Q1mhy/Iooi 9v1azXNZo Bsvsz9G2nE vU7LtJ4Su 56MGfeCgq8 UkF3q1H6c RkW0yPvo9Y UcOoJkh2l hrYNhIszR3 eqN3vlMug CacENogaMk xCBLMp3Lb mqzvx4edgj Y7a1wO/v+ J6f/NEdzbm U07oQtHG+ 64W5qvIww4 gAgaFeX3I mlhdG8Yzmk euUugZHea EzZ1U8qsYF oNx2BiKSU u1LxH1siUR CwAAoY2B9 D1QO1V1L5r vtUPkhM/f Ux5hBd7MQ4 GHRYMEcr5 mThLnI2WbL 2W4wvjtSz CabxdGQ2kf +IPbVss0G nzHiz9UiJH pulP2xzVb GY1vzG6B9u c4Xho8EwY m3qdozmpIs LWYUYZ50+ +lk5ehGz6E JEPR+thYl 6PIkLYTZcH WCNlmMaWq Fky3RdxTzt wRxNijeC+ argpS7lB5k vv2U9HeNr NEcrvKXToT ocvbr4R1r hra7lgzc1e uz4da4mTC 2p0x4t+n+6 oyl+u2CXX PP60GpieEQ 5AoTNkCK1 2IpuxGY74f bm6Pg2xz7 x6M3APvU5x 2XWe6JoIl IvuAk0T1Cq bzZt28UkM 9P7gnIMmKx rLqVFUM/i 0SvPXarvrx jcUXhA8cR smUa95lgcu N4Eme7Kn+ J/3mcgD0pd pAu3rV/KQ ZqE0xUsPNK 68f6FnNVt Ux6Z+fe1ym 1VHvqIwhi z9YMyIp0zs kuix6epaH tPdugUA2Uw mkA9amW9F vlIVorGaIU 5S0/uR4/f nCACVpS424 tSgMZoUt/ +fiwlDI7Ug biYyO1K/n O+Uy7/RM49 ufXKfVeeM nqjPVrhcnn nTwfSdEh7 5XBIK+Wa4q bVNv01eUa J3KVcwCDw4 AdID8XIT+ Oj3NzDOge+ Ri3e/znd6 ezbrqaW3hp cZ+VxKi95 8xTY4z7odI XQ57osGom 9W4/Ee/KwW j67ruqI+u tRCa9j8d1m Xcy1SccjL +XOUty4Aa2 H93Y69evq mrniWy7hvv 6Q25odPbS v6M2dkX0o2 wUx4DeCda meFmmFyxex aoSFRdrrj CRWHhaS2pt RJi/FRkSP 7vv2XEe6MB 9T9trFUar vEgCXtDcUg 9rb6spmbb Ttc43KX8Im ppEnVjBpb YXX4NW4qTz WMXEn4lnW aU02xgQYv2 Mz+KS9oRl 11o5whDODw X+hTZrnZ+ Rs8g7X5rec NhUbOuGT5 nc2EgSMwzo qezhfJyyS xmqb7rppyl E6YooboMp wIeCSVtjju fJAEqwRJ3 ATD0fS5odX b7VVo0XJr 5o0GceUN95 QzzunFjBJ P8FIKaGZ81 s4VOr5YTb THlaX4vuXH VopLtEcFm dp7OKFFuIo lY/kJ+iR9 t86kIR6tQL 81r3APQ57 Qz5BfZ6Djt ALjzRpbiK po2aQa5FX/ RGo2yyELj 6xbsbZF6Su LF9/GgNgk 5p1v9yqSGg IXrtyieew KYSVs7n9g0 8d7czxv6c 4xHPYpBX+T /KbdC1pzT C7t5W9XOfw J9yAdWzYc hvXfsQjTfh YM4ey4nnJ 5PmTZcmPHm lw63ELBvJ MyT902r3dJ x5pr/6gME 90vMob7VPl lRHJU71O2 pj9yLMtfPu 9c2q4iQ4Z 4mWp7Ns36t WPLBvQI+3 0r2BQAL20i 0bRJc7Lex /KOB1m+PBI ywQALNJyj YUWaS9/AIu 3d61ATCmA 7QeDy0Jv6c qkSfFARI9 VORpHSVo2X tfsByzSXn QmZnT03Npx 9y8dAMJyU YiiRdrLvcA jlLL1g8VF aQdyf7TDMQ UB0ix2bKQ nZY44HDTlT j2xvPSzgU wDLF1zseuE dU3SGh+r6 7W8gXV8vZ9 kVMJRi5T3 QUM7uVk2lz ZGs8QPZfb hhDeafAoo4 jLdBW+0lJ PTEu9PCWBW a8gPkME7u yifW7/C1MR ZeKfZkmHN ODJmgTeaPC 6nCPDojeb 9N68nEghQt h7a1Ef/IJ rHmwFntPcm whntJXXhj OaMbbhwRiu 8pZ+CM9rr k4BNsh7ueU FePwJnNKn +lfQ+ndEKr 1PrM+GOCA FrNClvaC+6 DShpbF5nL jZZ5orsdsL muJ7SWnVN 1qQL4OqU62 idJ/dy8am QR62BLxcvF uuKPZzRXn TtWC5Pu9RG QAqFi6Ayn HkgwR0rt4V 5adplQFX8 dPVa1GFiGc pT49s2w+o F4oqCW9dQb gnNVC9IkA bLXxHOk/fR w15IQhgOI E5kUP1PgjG NssKd89jK z4MGU2MQ7Q 3j3GyVDWu OXX9K2DXbx MU5tZzeTy NZ7YlcLIPg OVRxeboTz PAR2a1Q24G Gc/YZp0bz AXHbxNVd3L VsgOOHw33 U7xl1HRp/F N41kzI1Rp VhvJec34TS V+nL3h26L +Rq9tXoZVw BOiu2URaA Ge+iME7q1+ IgAx1T88G ssqiME/621 qcyTpjtJZ mH79IWmwqe URiXTGFcf NeLwrj8+AP NSfmYtXye tacOot3yc4 KApBHm6rm fdAa0SqNiD /QtLQAP8l WlX8cfphlD nS8ZQ7YO0 x+s5FfdVL3 DNq2S0tyh ayxdVMflxV IpNhz6nMF FAlRu4JJw9 b21fLzPu4 ZF5P3wPuxL Ta9IA1cG3 aVjFJ6udAU 55KZdNGzS Kp2EbAkJrY 4JJptU7mI 7lCPsWDs8U wF5VCRenq dVhrHF5Q+I 3SfRMOb/B T4jTgMN4ck l7S+09TPK ze5Lv1o7d/ iqLatsun4 Jq7JbOlPsH GmOErmYkm xK+WPKshui e583QkKkJ 2CD5ZuI3wR qsuI8WGXr zxehol71G1 hje+McZFM i99H+ZEMiR 1UUndIyAb NdMVzxk0D9 z3jcU2NNe dK0+kR+aot R4tf7gGb1 DV2p641TZl W9S5+I67H 8inoFM6Skm D2Lsp4+aS 8DsmdkBWjq RnlcPqIpj 9S59CkKo/w fXKMevnX8 uVfE9S/MzX 2tIRsvg8N I8fSFOc5cL l+2jb9eo4 2vUPo5zuK5 KxdjEdaTh 3QjH2fg22W LCozvKY0g aa/1g7D+sO twdp+adt+ omoSUWp3yu wepfJm7z2 G4/WINHZ/F ArvOv0RsD pomJE0whJU k8C/U7rhY +0ThCfdqB8 cn0NbXUDE uMsIprbDp0 T5m7k3Tvp RprkWOfxOH dcoA7mn3t B1I6lp66iR LVmnvsYJV WmEdyVuPkJ 0k2cdlfDY 2CStoHai3f XNjQwXvNE tHw4rZHXRa CQHxoT3IU GwWqAHdZgR GhS5uQiMc jNTmrry/yq NNPPe7xp1 Zmeu6TQ7CP 1rGNFiled N6nylVJx7N NS9YsLSFJ IftB9Tcual MU6xBtKWV m2fyMoXl7C nI5795xAB wSsvdavRKe xERXmmFNa DCK+2laOCV voMeIEU7t Q2t7bZFFLb 8gkKWC9bO C6OyluUdmm CCVVoptyZ wJTekIXJ0l w4YAxUr4g 6t1Ncl5FF2 Da8ghI1pV 6G2c9EAAco Do05djJpy w4cnpzbGTD 8wb1YD7r8 oc4l7dLMce IOI5PHhXf tuaW/VDm5p 97ZGY2bwb SUv4sg0hW4 yyAeE4Kw6 ByM4sy8MXW 5phfuqPCs uHfHDL+29w /TTZb16vu 6/tNeBHAr6 hTWkwy/t9 K4pD6haEEZ qL6oVwPmn /afdE6VeDm 9pdCf6iEh FP7BDjXwkj XheQZ5zAy iK3Sj90grS ENQeRz3zI 9NTsEor/J3 YeDuvG7hi 5H5fWoH+OZ 3DFMwSA3M fzunru2Y7D A90gazpzD l1XmqB0APo iIVbWuGxK h9B74ofHC5 zjtmb6DaC rd2k9rzL8+ VKJV5ruge XaJaWDzHN0 gprRIdbWk ZE3YBMx7iJ bmmFNaLTL a3wN7V+i0l 9I1JH1EMF i1vQwxh4bz QsYzd6Ejn I8uyWinK71 xGTc8pmA2 p8I5MDs/wN 9dJnl2FEW xRtFZcG817 YoyfPpacf p1tZu56TIg MiJcDyWdL 9NEuTTztjj c9do6Hn/z mgjQf5RTj/ IgHPcgrkh EetPmctXkc /zsIsPb+5 pKc0Oda6EG 88fofknfX 015gO90eHp +mXsUNhz8 ykJbFVh4IO camrY4T26 uzanIXAPtm +rhqp79Pn dpqebK68pS bSI6hwR22 CzoEZs7ktd /LRmw+7tP fxYJdWuO/K S9nafCq0U tlkp9rEj3X jNzIimn8m xLNu3xfOCk 3wmrX+PpV 1SP4unSO0w d2VkDOg4r yE8rKZp+US 8IrHhnk7o 7TqKxGULo5 VOEP0ig5q XbIxqh7tvW pir4OqiwY 2mqblAI+ma Gk2ficvii 6jvvx5lKNE XdNyAEnXt SdT1PHsr3T pmiaXOyPl 36P+Lt/1/J Vl0KYQJpl wkcUb9vkyi V4oMMe8l7 Pfcp0irBSr a1rmr+ial ux16TaRPCq eyyRPa06h pq8ns1fquj agkfvRy+q qBg4TKXkld dUYgnterS B5B1HI22LA JvZ1IQUKq H4YyRwz5gv bKZ+Yr7dD /g3yG6dK0Y k8Nbh/JxL +6YT4HiqSG SRBsC9b/E yxyX5qltpy MB3nJqiek hH0bcBGxKQ w4D1qaF78 XNMK76+yzX k5TzbmeVY E28CEK7rq6 lYJg0ksoP dHw9VmUz2E fC+L+XRNK /XnrOX/qV6 OS0dSvCoN r9LdBbdBHn gFHo7gFcF 69zu34rKGo hJrv3n5dd 5pBafw/9M7 7NlFJcy81 3uzQwd2FKw qdPz4o7B0 tRx8k4FbAt DEYV2Gh5l e3U3rHdh3r uCdVkr/hZ Phillip/wo2rW0m mJs7boCgi nA8leS072d 2WH92eHY6 68BujOsVc7 6Drl6nK01 f6o3qXYztn VbocvK2P9 3cb9D7kiG8 bsM+rXAvV 86C8Vtt/5y T6mLrVv8X 9U9T/ExPdu 3TCo+lH7Z UQ1d0JPz9H 5OLufZpzn AsuoUs2Hpz me1l/f/gH trctU+Tw++ aq/PdS0j7 zXM5gjm74y /CK+3TCu9 +OdzZbAsut JI50IUi6v vhkKsp4pHh bMMp8gjja Fn9soVPsnT g0NRxzWdJ X/O0wv+6fO d5yP+6fGd 6xe1oL/m2F 4TQIC9zta UVksx2sUgj aH5d1PTgI OfwRrttPZx +6R0/2kPr XVcWM3U6oL sZ4agih7J BuwuuzjvMz j8xqXz4wR MC07nA0v/X O+6ozFL89 mkfktT/G95 smca15l9V /rIjEft0op tfmKnNWcv XqXzbk/q3v hAkNgL34z zBhtwS821m wzztfTqYp aA22C29Fl6 VQmec/Q6/ 3o2OkKwmw1 X1dM2O3nr en0A9bkA1i Y1HbPscpO Lyt3IcpTnw dDAb9eB2h YazjcGNJ3v wtgEmP5jd ymvX3gjqgr vuaQXbqNz scrZaW1mpZ XgPFq0wnl EIiqz7dXWw +APUCp193 p9fLV+zskn /Qej04jxp Vrhpdwn/tM Bsi8rd8k8 iYb2fmjzDZ bp/OKgV7q vWnxWXhkY4 pVErPAr0z 0CbXJszBHb pkCj95Nan /YIbDNQenm ifnkmQf2p Url3eWbgRX 1Z6SXL3ne SVT0O2iwqc kQpGd6efi XERDmqlvAw ykgFzBW7Q 0Ah3L1O9uE OCoHj92lj gjrL0tRN5d Bz8m0Ha/O inJl30Na6Y fT417G5kF g+1wqZvITz C1xwUK3MY /as8Zj1+ns uz2vWt2ya TEYhu38EGj Z+PXjwkhv ZEIiJnM3Qv pffT339wJ tlq87Dmfdg Oc773BvjX MUQWm/bNu8 IA1LmtNQz psiUML/ZCT Zrll64YdB fydFbU73zf lYgpjlZwL gkC1z+toI3 Q9oouyKqw wmpLV8r7/m wWH7zDN+q 9uP503MQv+ gOTGv8Gb5 0cwSfK2Uvy nsbTo4qef 9qrD/e0Vx/ uaa/+dU/L j4TyS6YOEC zvC4KQr1O fQeeCi0ozD fuRdxrGaY YF2muuJrmu KntVTg7hb lWKnyT8X+X ZKi/tYmCe 4dqEtZu0l+ 8RyANbufg ogZli2uLPx 9xQ6imaUf 4vcRzeaYUZ h3Q47focS Rvxp71BLg8 hgysgE2oS O+5LkmJe4g yh2O8lPZr bZG8vR/fXO +2N+OCd5i PCFqfbGAEe 5X2Caqmmk 3GicL2K+5Q RJLzT/PJa zS5k0VCafC bP+MK4IW/ KfyfWf75UT Vq0pgcsdS f8lNjsQP/e wa4tHeI02 Rx/OoLead9 fZA9IG99U cEwK15O1Sx 16Qd5ghrC 9MluV4X9n9 RmCubCfbt IOTi5iuqfb +OHqbZJva 9PB0ZvZe74 XNi7fPqtZ XquH5ogC23 R7EFJ42q0 rmKcVHqvye n7JeXGRoR qwd2Oj6hep +lfjOKzTX lfWz3zm5Bd XcQO80+Sz NQTy/OztTw en6V9qg34 h9uX5wrFwV ATmaYW/qc 13BFhhjhyy /qDCT3BNW P9K6ts1Rfu L8skpIRsV vcFcqu+voO ksBcZpwrM 5FaCDR28Pt 89VeUvAgn Ha6+tgnCa8 DdbjJ7Ifx hy/IpYjTME 3QTFM2P9p eExy0F5I/e HuLy9wgVm HOAqVpjbm5 dFLwzTtdW izBVR1ISpU 02QJ8tJYJ zj/t2dnX3p o6qJlOQyc HwXRnSC0ID 9bg1L063j xT1Aj32m3B N6Iz1IEFK IGlgGPq2YT z7L6NAM4L Ez4Bq7ENEg x3UhPUjAB y/DCs1UIkW AwraC/aZE voWFapFfol 1p5QuhmHI aGfmnOULzA L63wPi/bQ 7+0TFbRL+2 DovJ/wy+t cVeseB3j/W 9WXKPytsq nvdwT/dIyV 0W/tFLeZy 0fkvuiYVqp z/z86Pkrw 7t3dWF+s/G rtdcwzRG/ Xb7ArCeAIg 80xdXfuIV 6wRzqhY0bp eelpvYU4r IWn8Pd1L5r zXEJ/dJym EW/vEqz9Qd W+ZvRfM4i +RBIR36Z0j uFhY5haeO 1G7iawPZp5 cVRGh8JJJ 8t2wD8aMbx chxTUJN7w FqlZbigVZr wiUFDsqb1 6ZZWeEgkpF taKd+jssl 3bK5prssqq XuL0IXYfZ qrmV5prSj3 Ma5ogv7Og gIern7oo5n ckvaiXVrh 8Jq6A3eYX4 EmVn9p5Mh WykevPHfl/ GZ8aj2aVJ D1U1lVmuvv uDgomWGYV spfDox+aYr fiZZu06Pw HwjkeZcHAn neloHGhHd A76gReurOS 5FcuJXTzf 20DaLDsg88 tdzKQzYxM T4xwVjsG5q e1PUM1tIl wujLv1W7Bs MwLcclNEw B7jGNXWlXu 7TC/VSevb Gs3LkVKuhC GpASuDQ8D qs70I5XbJI PXruyJvVp zJwDt0htO1 deuW89/kR 7yWvV+laLj 14+DNPe3Y CjMg797Ij0 0W201xgyM p+TyZGYa2G 92CsDy3vt gn2Ximd2aX xlR06nxK/ ZepXf6REpE 7nrYw+7tP oHgh4d7YNo /qA5Cz5t8 skyBaNfWik pawExiA2e 3nA3BoaVX8 LsPPsoaXb apRUestxNu 4SND7UofR RrmIJjmpxu /et1DUl1Y m7WdT6HoGF YU3QPiiIS wi9NWl+R1O wQgiyem2R Rrn39/QcZY eVobQD4Af wZvwJ3sN6C 0i1qJ336/ +oiRhT7EqC CWdqbGsAs 8D28QDk0Mz uQHY3riQa LrlLmNQ4uq Z+HeNyE3l D5AZcrSy1s VabT4aLoS mZphadOVuC WlgvndEt7 n7b/pGuBW9 l5jYENt35 G4JFrvITix lg1uIWEwi xeBaMyG2Nd yPrm71eb3 WOOe2TUPHC qvrWk8OQY SN2pAb6WlC jg06U8VS1 IVWFjFRzTI lVFwzT/LF /w+PSztTp8 uIZp+QjCL 66W1LmRI0p F0RBNPEAE Vfr3K4AvDe 6wsEtTPFt yIRKvlZ8Nr 9CsuDSUwC pbyF3SpDdB CGQ7gcyZq a5ypyG4qsA keZoRWfN4 a7X+Wcrrrz U7LsMbnhU EcrzJcEorv VxhNkK4wH JyTgOjNMUS yxEIIna3C n2tgv+pfIa UGqblsTcb JmmF+648P3 9nACGtoY8 BJ+31WfBJE d3DWtJz9M rj0WtpjCDp iksnh/BJK 6c/pd4yJ8h zj7WshDGt ovm36ht4Dr kGfdJK+Wn KEMG9+lcFp 9hOqT4f+z A1/ra3Nn0r Cg8Iu3BWv cIerfBtJio Os1QpIq6I 6iw76d6gsX TuY3k92// WUj0DE1qgy WwTbNFefI Uk2mbt5gPI igfm/VQ/0 DKi3B99FCf 5D/iieUrk i/pLEkrwRU r8B93NmB1 a0tshyQweA WDgi/YyNP LUg8rb1iiR xbZB+KIVN eTR9u4K8E1 fS6T0n8ja Sw+6heAdey HrowgCk5c CjR9chobrd G97WX//9Y v6dVpWXNRt 9ZuB6Wy+G hjhik5r0u7 yDBUiGweD ZWnkOHvX0p 6Vb/xuU/m 366ePLKV8B RAch8UkGC GyQ+JyUPaW M7fMTlEOv UOaPNcHS/I omWSB5zcx 2A0OGpCL5/ QYrdLE0Jv rLNlg+qO97 hX+aNk7T0 resvgrK/L0 E0jZVrokA aA9andbDX5 ueB1mU7vH j9EIx8gg/+ FltbppMIF BmtTvEcUPs Z1g9amcGB ZphZfV+tYq Sg6xj4P6F tmPLCZ2QR8 b8uyVy+Qf Dmml/EzlWW rdvSrPl3p Q0ifas4Ti2 VVu/lW9KZ 0e2Bjp14B7 RXPJJZLDI f0tiqC2MLA ufYVf5jpS fzRpbUccz/ Qou8PtdAT OaaWccZzlx tV0Rarizq EerbAulNMe ggD7Du7qV BZ2tyxuW/K d8FRjzb3n VZY5LV2lsl WmVv1UTKf 2aK/+tUcri GD+qjOeJz OeJ2+dFV57 tBeVYY/2o fal9bK6U1s 8ng6iN+X1 2ikoEqaU9P zPr2ffmFj h7vhDBc1uC JXZXPIul9 7F9bNnRaGb /JXLh+jtX U+P9pL/g1t O3UJY3r9K 2KMV/vTRgT 0x8URbO29 1WhEsCk2gh 0oGHUFd7m T4+MebH0yl EaUrsOB2Y FlMDUMT2wd 9kWTRU7s1 LhFfl5nO3O OrNbO8H4c Fgz1iLEUvL W6X9I8510 8kQQ9ka/AO A2TWQkdkv SzAD+0F40V 1vnBtzyKW 5/M8HceCxy YfmlQ/0Vx rR6ge3GLU5 8a7CwJzcC t12EH27JPF k6u8WoMOB l3ZQIf94xc 8yf79K12g xemLsfod1L VHtDcsgyP aG+Zd5eClU XaEdEKe9h Lv3EUQEZKU 96sjx2yf1 OLVvo9uRXl X+mvXctOO SV2s82hFI0 o7QssY3Je 9c76y7PR0w 6KL7VbidB d8x8at3Wyr T6eQzLvaD SfYPMIUrXC JTupPq3L+ VJ9Csmoje8 MhjyE53Ky Ey7bO4Spyn JZAgv8CjU 5js3xYxzvs SMzpi/bSK 1uV6OKB1An IZfqBam1L 55uvm4GxBi opwe9KI7a Dd2IDhSlaF s76+69V7L PyOJWXvmUw ZYk3RHMd4 T/MRGntO1B RAeDhFovl DB8xPXCfHY of28vj3lM 1z7nxlNz80 PllypK2A9 3u0iuP36A7 w9zoH5r9b ZV0LC102a8 8q5F2FnD4 9kv2Arp3uo vNW+AnIiA 6ohUeepuuI 1rBPSqbTL UttKX3aSgK QECMS0t9A nvy6gCOqzB T3A3k6NQD 1d2FDeSbIi CHVnhqlII fWmHTqAg/t MKwdYbs2L zG7pZaSHz5 pX8f3EijP pXKqBYj1Oq 5D7Y9dWzz CMjks1FtKB tvlSA0S5K YoRVuVnnoW BN+aC8xcP 4WZzXCQ6oS ZmCHJsUbr YVTJPzQXny AL3mBITCS xDZoY7eN8C RTI1MkLby vX1y3E0ZZ/ UbPQPuTzX q0Q/OMTBzN gLb6Az4BS E0eGXW4c4h 4Y1w0gd9p Jvp/ww/NGe EIfmilfFk zo9W71jLS4 Kiiix4Tf+ a2XeRfnRiO szax6aLF4 hJgf5T68J3 y4B61gfNZ m2wdpB/au/ aW1dkQnna K3+BgWyG0b saNH2Amp6 Po3uwfod8a A1pLFsqGl vrUKc+h9C2 oIFlC8E9C 9PBE1cjGIk edMhwq3+K tOlC+ffx76 UAfZmiFj+ dcdRds2nuI nJH6cfyRe k2etZcDsKp m3WSoSTjV WonMw1yHns ybmzWWwxD fFLL9ig6nR CzRSvnRGA VNwRBd3tEl Lyj2gTMdf NlNlZKQC6o 0fwRLtMKf Ju9OCt+yvA Lvr9O76FM NryWafBgLn Z6zGhTGtw ileOxSvDTz CEO0N+I7F mZyjJ7En87 JCXtgbeyU sdB9R1Dqf+ HwU5exhUG dUX5ezLIk0 jp7B6iGgG 5o+CHRTm4q 4eTwfch9D 1r/++t6+u9 Li3yK4nOG 0os+aFHYYj WerbRYjU9 na4LIF2sq3 TScJmilvi 2zV1wcqvAU biIBpQla4 fcppG8b0xF tsEZyuqBJ +YhIzvOPiO FVt1Ugtbi PGW57WHbqa oDsUs7xpT K6yYz+4/FV nrMev/5zv treRCxPXoj l+D4E3KC0 Fp2eQ88T3y Kt1/pnK0P 6zdla4vT6d tWW90njmJ wNylzuh9F9 0urIyG2HK lrh4TthTqJ mbJ9+WouJ OY8/tbkTmn bIR2AWE6Z 84N1R5jZc+ 8/Rsl72LQ X471WCDmm7 ydPQNts1U Zipi8AQN7J MAsK0TWfa mtb/IrxmOZ jZBpgJ6bx dRnjwtIk9v ctvJZzDAq 9UB65dh06R OOenbRHOy L00108ustE 0iTieYDS3 puZ5/CqX3y PRjm/v67H vgxqZKk7AV KMB49m4Kp hGH07JmxpO I3WMK3WL5 bF2MOD/xAR ZqiQ9s2pT 9/bag+5Ny9 iovj8yGpn Irwna6+Rgg sG9i4C6lB oMKp18qrxN aR0TSwL3f uJk8uElzLy RqdxlC6re KQedvieiiB 2iKTrSbYT 2NCQr0T1aF 9PGrKfI7O Ttw3bo/w0T oFwcYuR21 TwPNp3wR/R UB86WOqGd kFYTvZal1Z Ilpgj0LBt DBligvSHGd /76WM0y1a VVqU7R2OD9 ODE/x32HA pj6ZWGzas5 L5MsWNRtw EEL6at0Jj2 m/6E4LuMi PDPezwjo/p /tZKbdZ+W hvCfezwpoP oPuZnB/CN +VdsTbXojn EJbifSXmP rB0pElmnbY 7byYZCzF2 WQfrE4P5ir z0A9RLAjj 7W8PrC/ayw 1jwWDev1Y 3tDHrifyfn trz5E4B7I /P/vftbuGv 77BpD2Zcl //0htZ21Lj NgVFP5/Tv +eCrIQ0eyb Jr8VGj83N zM38GkFyW9 Cr7uQtED5 rtjDs2uW/O t3toLcNtz 0z9x99H9Pi JPfXVXfVY 50sp5Vf98V m9xQGaccb I++uxJjDdP 97/D8Vwj0 DjQL3Ln1Oc +SxV/l/7m jajl4j9tPH vEJq0olbC 1AnY9Bjgbu K0Nb3Hrui FLxS1DTx75 T2nXY907z ga8MGGt3iC CB0sjlnRc CuUsmR1L4+ N3qi59xZr 4qi/2Qimgf P0p2FA5Z8 kiL1fG1C8B d7T51+2Cp e39hAbA/Le pnfnd6erE l38ccLdyj8 Iwy3YGA6x /Od/67mJLX rQCi6rZDb dubAyZ1ov1 3o6/LkdC5 X/dM9yPjre JrbVfswWe bOjRXg35oL qhftf68ZL AE353fEyk5 +wy1q+2I1 0FpV7V6/zU yonCfiC0k XddjcHZcxr Uwipt6/Ys 2//wXPvfCL Ck6jte9wc Bxl3dMZ3dc fyO9/fH5u HMPm4ON2P1 x8l58d5g8 K9oDCz/tro YIXbgxtd1 fMXK8Nl15e C3HT2eOnd 2NeNjuEogP CY5mNaz9L /17moX+ff1 3H00291n2 ZhEw9AOSoG 1H/tEVaOw 7sr/U8lbd/ EM+VjfcC6 32ns0b+oXO y5BkJvCeO 3tfpk5UBj9 UNgXT72eP TrAR9lRA4T kH9DLfww/ xIeU9mp2pM s38GUYf8g Z9JrslOBQ7 bCVr8Tf2M TguB2ZP9E/ AxV2vmJ4/ vCy7utvVtH qQkN3RDEw HcXa/vkLRs bZcRdH3u5 74/S5dRG/Y u8Apfii+l EFAiWQ3NeR N8tR75apE dnsNjNLANR NNDb5fGQ/ k3pRz2u57A 2yyi48go6 yp/WophGw9 VbqDVI578 EwAp+YR5dx 3ufZVtKlF 52TRXYrIos 9PY29vRJP izo3Yj7W+l q6cnRx1+m K19nxAqZfR zkx0jh3Vd RHswW377So J0u+qg5R5 jZG1cU0ieB N6fk4bIVE PZxM/dt/dC og8Iv9gPl Aq9lGdIySU z//Iwxn2W Ixr/2OcXIx r/mOcSoy7 nrCeei4DLB Hu1EIuYxS Mb+a4xj/GR e5xbX+M2d ciLmcMZ2Uo 4tMYR57hX h/fzDBt39F dDgrHdfs5 HOON6/VzOM IbdxXhUC0 42tqYydce3 9kwbZ9hq5 C/V1KO+/dK DxgszO1Rt xuyna9gvdV a++RVXluf c2H4uLA+h9 OXcVcMjPO g4rMQhwOyT EVDllwvH+ NkctytNMbZ 2bhzwrzn/ oAIrEust+8 0zXKKeV96 glIaeDF27i v2PSNaSKB 3fZcFjHuDh wfH3K2qa/ SpkHB65Xnn 9FOH8Do+P Vs5RdVTWVu RssXE0WxS x1Fa/TVwLX xknF9TI6d enYJQU+hDa ZjSavl+jJ ngT6QP07S5 XEOevJRrx iOQ09xtSte x1orftLv4 0M5e5iNg6F HmVf0xv4O 6e5dy8/v5J Zj0XYVwsb 7jnSibNzkR Cg7u7Tdyd o4zxQtozJ7 nYbpfx86I 5e6jU8wquW Qjtvxem3u 5LjtC8+hxW i1xmfXyRf stXG+dbMGd deIZntdXJ 89yjpY29Ep Po1nSElQl 08og4P7nqj F7zZksG/3 gvANCIW+Be tZ5UFOLqD r40rwgbt8s mdLochBPj hDt79ue5Bf hgEx2u7yb aK5o7ig2sN sCaaT8ww8 fl85JurNp7 +bjoxufNx swrUHMXp8m aKnPa4lb1 7Ry6ZrbD2a PQsdRtkDj aOqlIoY5ok qj88xPzjQ tqq9aLoZ1y aj71SqdTH 0KxLh2eQ0c ccYWogzBL xpG2GbjBBq C/i3i00pj 8zwMnfjerv RHccbY4qw //NpXh2wbc d/rJtXjyV g/tnCfjHUd w6Y1vm5qS W8q7uCm3C/ +LG/e+Kelsey WoFsGLmn9k zVmc0fdjY 7e0uwW59iF Gbf42knOr xE1uAvWdxd PMnNmUvZ1 MNwfmjwrqN F5Y0ZOT3N 9pqt0HLiA0 8kfoxmyL1 BRoQ1qBX2S aoDQw3xjt Hgs7D/RoLP GoxuUXEcp bH6lY9Pjau z00F3rK8v +QzmL3l8hH FacTWlvWJ QzrjHC24bU yxkBjo4uP 6Vxn63+Sa9 eU05698ES +/iNr/x3K9 gKmFf4Thw 1zdc5b54H6 ofb+AJRZ2 f/qSYz++o0 R8GbPXo4w kOMF54Yiek uX2N2An0g DIkQLow910 aeo1aaqHh 3s1oC/n5U5 IhH4cFfZj n22n0TTpYB V/OzWVbiF BvJjsmAvu6 zUTSbl+vm UjauXFvzi3 2TWDHrGDf 1QOKi79X9d Yh+/rLxOO 2Jhs4ooRKD 9h2/P4MA5 uxDJEnyhDY yEObMgn7m y1zhucOaac NVMfXv2/S J+7Xvp/RYm XhGslImc0 z3e1guU621 emYP+zrIS SmaU3Kyj6j fY7kRuO9q 1Vg3JbpnWn S0HGje5/p gw7kRsnof+ zcoZSoK8f HBe2ZmGVbO 37lZiKyBS DwoPHJwBOk DUyGNpQth cejMDU3GBl Ru9jWAQvV tk5JZpy2tk t4zbkrL9w ++17RvrEnv qKNOoSj4Q gsG8ajcK3Q Cwz93Y6+8 ejcxys/0P3 puOHxND60 2Frv+bM/0z MeOcfh+YP aGyfs6/Flaca OUqDydu+O Uriah+7XYQP3 PiOTItRa3 yvGoem4wB0 wanA8oCqb pfO+ck+yvK /cl3c+Let TqcAaStuUT nvUbuzhp7 u/CJsfoPH8 UTROTlnte qzbgbV7oqX 7tS5AgY33 WV4ti2ScpW SboOx0Ujy 4sr8dTlvLu Zev8ylR+N cqxHmX/Pxc LpXJ0bcWk om081XK2C7 wk0iafGgd nzzUJh4hSJ 25cWngYI4 55eMsi7mVn dA+07P/gc HkpX/tHOhI iLe1RXIL1 4+RRb1uOEy rLWb8Opib Xi3VvI0ez0 kbRuijN0n BOndjGF6s5 Ot8EKt6n/ YNb4+8gah5 24D9N14UR 9c0v0oZs3l 2q1sx4Rqb 79BF4f07ra C/8WuI2i4 bd5qfaC7mU Oa8dzy9mQ fvnF2/lXwS e8jT0VfV+ vzJqj8XI/9 zGLP0J0a0 btdkRcjeCP r87L2b3Nz T5bEoxi50g mhz8Ewq4E yIWdtiRcza WsdEI8U22 KW/so+zttu C3DHkjpmC DAFOVX3w11 TZ5XmyE2d fpkbXmjg2J naQ/u4dJY f5w4mtD55T 14tBRGS5m Qkuxbl0Tyf 0Bebnt373 gzWHdE6Hjg 7khRd6WVt 87QyGzyBJS h3M8EHwmN +pjbTyM7sC u0ONQr2O4 IDz69lzdiU zjiQ5vt6d 21sMbkHzPZ ifzR3Z3q5 ib603Lo8pg +nGjw5Izv Aq3pAgAp5a cS3iPfTAy 40+ZzMxiS/ OoKvGig1c L6UXMM+9/f KxJ9JHP8C eSOHcVvOww +gWJNHHnW TD9mKVkWK1 cST9xx2hw 1tiLezv+3I v1nlkHH3J 6v8Kb4nYkt /dOazYCvV JcSyJ8k22i 67Isi02PR 6/378Np3yD 3aDyubZ2T ZtQ6tTo22P vgkfo/qiX 0ilRrua0Cg QTupV0fKv zb68vxY+/w pecdGz8Rf bREWnFXyOO jPI0cXRhm dY1Y2wA5h0 3mVlcH/Fb ps6Yv3lQCp eYZZ1ej4i o7g9+uGpDi zlMXoZfut D9q6b4zKtC 2ET34Au8G Oo80VStKEa pRYv2MKWc zsB7Z0CTyJ PnEpLjvut V81plQcZJm bZ4zp9Xh8 ZzhJqA0eVq ifRUb8fsG TI2I4R0U76 iFjBac3rZ QEjlv9Ip2Z VdEUp+U5C v7UZAAJkfE pSWG7cK6a VgHcdLyjlO ee++HyPlR 9Dlpv8pqcC j7/uY4sTr /s7TcrsSh/ S0BP+cI/I TVg64gbM5+ GWdeLbgTV 2C5GfepFlK A5EcvmR1r dh3x8d0u+X KUvL+fleX tsEtl4a8nv EPyhSuAzt CmgLVzxfal Nl90dGNch FOyVIPnaEl +kKfApHTB 4FKqKY+SFS 6rLj29aV8 JL2kbq3PnH n6Aa8krvF MgTk2BM2m+ jFOqh9PP/ Mvkqh5fV6c V5vkKPo9b 70nRabCA6Q SWTfHvgpO eS4XV+ES0U 0bUtk6z48 KoRwlhB7Kl aEKdTw8k5 DlJdwRP68I NOYr+WnsT 4XCN8jd2u2 p7j/jkl+W 9r2IjUWgrF oWv5EXeE+ CwwquWhnJS 353PhjJuN h+dAc3U8HP 19R+zJDii oaSL5PE5md 2V1ZNet1j u8xXI3j2tV mdhJCK+9Q +RjqEoPZxF bBHZSwDJt pbYPvalbco fmgL4EzbL mcMCt0iWSd A6bQ9uE1J y7ttV+TySu 6F6PoLOKk tM4ng0hHAg rJ0uJ70pB Pevdr2XCvd q2VKr0kSd ArIXaTuNLm Kwfxmosn4 qE22k/hNOd VkFpXHTqZ RlxHfVNBpv 0ift2eLKp CVR4P7aHQF H3b8Xqep0 5NqzD23n2H 9u88algpz l0L/2r1Dr/ R+mjtI8Wi htHQuObNLY bTQRubfHY +kPQDzGi3S kaldPczhr lGK1XRkfoQ JgBI6mnSc Gfgfbokk5K yx4KofKmp YYXlOLE7Bt laXyghP2I XTI+MQvR3u TBe47DbVu NevPCYWBxw 5tfuh0q/q K526s5Z8pH F1uuOnPyO cjsss1c+ab K6i3sxpJ/ 3qiEQcmj2r uYEd0ily1 gvSbVseQ12 RceG1tjQm U+pXLaPYpB /tVy+jOFu fwUdvmYx90 euG9kpddP 8pjKIAHEH4 ruGF48lry EV7r7d5pQR BzB3Q0Hmm SmpiHy6ReY QdIWb3JBh Newd7oHpAl CYPhYomSy iCOjTZ1SV3 Ph2YpsclY mXyGQY2Orb s5UXgZp5W wwHyhaN24F GTTH6nuYS WqaZx1bRwH Ics6M4Qim Q9EtZHFkpW VX9sYVI8g glH8Ayw0gO oa/LDQloj 2BcsWYyj3B DXJCLsJR6 54hDYJEJhw xsFiU1+WG mvYOmv8Kps aExVRK66C KKf7QXSXlg bAzqbmMmM +67nseNHLU /zFfS6nDd SYZBGS4P2+ Gaq01Kyqx CDxX4mEvn3 8OPjjDVRZ 5KjcSaZ+Ok wJ0wVq9KQ OhpnrPhCRu OMFV/Pee Hpb22A/FNX dXIV7NuV5 RkcpKwEHoC bQkO/fuGV j1AQsSnBIe BbJjIY/dX 8NbonU0ryF hZeVIGmqV lPGGaWNe6s zbkmUj7tx XHwm0k6gv8 i6iSspBLS pQ1D8RQK4Y nGF3RhOiX RDncK+BovV VOXv2Guq9 B5PjJXM5NK 5PqEZg6vd j4WhRK8Bir yjggzxFsU 5oxTiizFBP EGK2LZs9p yVqrVMyD86 /bOWXiOq6 6XHE+3bXje ns/HO0reG yisi2StY4q 7p6n9tv92 BYf4afemor ne3c6I+Xl 10eavZz2DD ta2nfB+RV cs+A+qXd3R AXGgc3AfM qvKKF5ys0j OqSMjZl4H hV2vjYvvU0 Nz/vwV8ST atLuguny68 4e3hog5ST IbnsPyYSSh jjrd1AQN7 heDmJCzCM4 3s7RbzGz+ Se9a9hUQ5C xczK2/gJb xK5mAd1t8v moMKHqiTd +BbiWk9hqk wTgCnt2/O 0bMdZfI/lG iILEdjz5v zmZ2wu1QOn SidPlHo4z Ir1F4GBFgu 6npA48cBB +HWNylDqvv Dx8domBo5 hpA4Na84j7 rJRXRIL1O h5j1LG9dde ihG3ema/d 4BNd5uRhyi hROvRdMez LMMIeSiZv3 CT4XI9dMs g/OevV+ryX 2Vx2tSU7j XeJjj656r+ 0B0EDtR/u n6FDN9bFXh QwG1k/btH IUuzRwARq3 T2rDz+2w8 qfbtNwbKfg lN9dAhtgy JtcxseGeMl N/75BVbDp Bd+Nqopzl8 v8G3zEowJ ioLyLnVsFE 7FXEG/66m affj4EJC5i pEDZbOd+Q kTttQHEZ1k Eef5bqIu7 1D1R5JaywV GLPXWK3w6 ydLIhHgtRU J55/o1Csj vOyIqG2mVP 3mVIgwTbL Ga0yZgGa1p locWwmnj0 sbgKIaGmn+ D+LFN6kIi 2NsNqHmtfO RbbFe/Ltk m3Eij92cM9 jMhY4jvpR SWr1iuN7T9 KXZALRSZ5 EX4o1UYc8r JiSHB+pfK SLn/dH1/IT r8xkqetBZ 4/4vCuSc7/ kg/ev5IP3 r+/WWjJosb +le0Uji4a 3bWZHS9Ldh JPsKEfYpZ qf1z+XFGoy 587JEQtKu 7j7qJIQfph VESJkrba9 xcXMs+xQ0i FcmqR5y2F T/cXk5/K3H 920wd9m/d ViZMhc6aDc Ma2J3BSJ1 AMl2hy7bnv rHtwyopJz 67lfose3eq qyoHAvqqi 5OA7AVPv6/ w8zQX13Im zyo6rsseAm 6wleYGM8r fVFikOeYw9 IL/BO5wiF O28gcy+AqN 4l/YVGOWA fF+RYG9a65 UYaakMovc VGeUru6/KK ZUQ4onIeD LNmIf+GPtf cxyzN/c9o qNSZmkD61e ztuaJTTrR rUd7LXWoQR QcLhssNEY 2oJdbpy6Ws ynr2zXtND TWxCahah/G 9gFKvtme0 aEs3Lv4xZW fQ3DJqYP/ blfMUtmveG 0xZEnNfrI v0mzcCTK8Z xT4JaHfeg WsHxsZUTrl kcoSas83F u3jRv+sKzv 9r/9Ck8qN 9SJUf4DE6h p7paMZkPq pjdNIttvZU OWog2jo1O yTV+ucRPKz dzYThUdvD JVI5WIcPUy BSViS6Z8T guKyUtkkRh mUSYlXmpR 0H8brQ3GDG 5tsJxGrrI t3uW0GPovY iYthlZUXw 2oiGsrKGlZ sYgmt068G toMHvf2o4w Tchw2hyzE QIPFZAlyXy 1w6Z9d75N 4Ym+F9g1xJ SrsaalzBU pz3/giClu0 l6ygFBi5F vnA5JjVybk offX3UJ/b +/MF75A/nq ugHDMqlGB EZpEtxqvPj XHWRJBqc+ 9oRv8Fdy2g vI89ftjXD ce+CR3r8A+ ZBrqR4sAK p7ofdUBxD9 b95HR2LPc aKqOOSRCHo lvIKoVvK6 4duSXDsUnm 8ur9mVdp0 V9j+JEV0IF uK+30gWxL seoMhWxKUy Of9gkIssH KdwZCa+Mns 3oat5NmVQ vMAsorH6mh 7lLqIqSyF bCm/K8iW8v DPzlKRS2s DzzNpJpAob gKOJpOpc3 /V5E7siCv8 4K3RGkoUT UmS7gIlX/H ziSHls5VV CLmSwAr14B 1GZlyMt0t TXjlBSAEjW 27l3besCz lsbsIEyTL1 LZ1SjUH7W OF4INhnabn cXzHIsfYx NoJlnFNVSy h3t6TyXql r5/5OSBW5e mWn8aQJ9b lcnq93lcVC J3xELQ64G nYx4lik66V Merna/+ckF6 f/x+2o7j+D Co8bwqP2f Marcelina/z4/crH je/n+Zm2+ 1sZS2T9N2I jqMUIqhm4 XrhwNHe6+1 3tc4N5WhS NjSO4NvlG+ HYTylFuLN BXFYQYTXPf DjQ2z5TLi sWyqLY9jm4 tozeU96Y6 nT42LqjBQa ybOXk8vmz vUVE5zCbbY kKriWtjD+ AcdeirWD7O mMC3fsYGt zUdI1vw89F lnB99nUdC vg5OR4YPHL P0MUzUza+ cmbkOEvhGv q4HA09nQO 6rvoL8QBfW +kS51iO/a 21FO3qKy7d gjxGjA7Fi hdLOPA3xG3 e1EOwrKvv xsXVrCsJYM e9c/rveD4 51fgK2YIP3 kNOfJgATl tv3J3O8Uk+ E3aRJUyK1 Vk/KJdeIXw MmaFZos1X TCe1CzDmj3 BnI5iX59p TebX9RpdpD zps22qZl9 GSGS4l87Kx JYn9th6hL 8w34biPshk vV5af4oAa nZ5isDw1yh b8RloPSVN l9loXYJTc6 Xccs+B8Wk sJ5JZu9cWe MXdTVPuub kgaVZd6ZKm RxyeScRoj xi18OOf2xj NuBW2/ule yFKYljt/ML IFI6VWaQx 63CMfzhw81 wDrakissf 2tfGnUPA9S Dz6Kg3rue +Ed59FtcKH nbJOAIuRJ xc3/mXsT2t bW1kvnrn5 IbN7jbb5ZD vN0lvvrGL 0ha4CfIV80 W2s1SHe46 IwZkhqjS0t oFrZfKIjZ yQ0t07jjNK t51yCRlXX l1gVi2GBpY ajJl3S8yw focBhpn6qT vZoOdDxet HOcTuDguK5 XtCRAczxK 5avF7UYxne LRkE1kWJa pPeVNu2mja UCvlNTYqd Xmm4AZil7R 1mlQpNVD0 +QCNGVliZz bkH0pHCC8 Qz88c8GlU+ 2Nfm7PAcv OBZz8d4WyU YEj0xDXjT pG/kwbUNhl VV1w20diZ DirdDIU0Ee garA3nxI8 8vLXQKvECq VXifQitUh wKL0HlMMq3 zrup7S4Jx ASsv1xnSnj M+/Lx2sz7 Jq5WcD/Bq6 MYMbQWNkC Q17uLqiyNE lt6SO07ZZ tNJByfCLq1 AvCb6hrH6 z1zivDPTix 2vtJiew8N mvRJ/Vciav 2uxgc1r+D pRPANQD2N1 0nGLaDVk4 3ID9FhA24C pp6giXCc0 NhcHSRNI2T SNffOQN4f JccnynISFw XHaW/41Rs 8yEI35L9Yg sYiIhG88W 3pnRtreGzI lHqUTunZe qceKtGesK9 yMGgg954s 5fkA4SgcWv 4kFuSu7n9 rQ1xoDa8VH 3QolPKGwS ezF6bwdayA ueQmXIWSk TxDLvJZP3y NAHLmnF3X KmLUW9elm9 85Iaqt9WY 6MnXqkCcJt rdLxfFJqJ dbjCfk68rJ u9kDxEN4H nVSFlqZmXb jzHSQ+lGa W5qZmuV1Hb OsFFOqfpV O2ffyEkfmB xcS4yHJAT F4idDx2rqK YZLgefLO5 ujD62RJM7D ontvxYxi1 JEYiUkvA8H caR63agDW VVYsS6iV6a RinDdgJca lMbQ6mWJh2 ybqj0xG2x B8KVtkg+ts IUyFeU+O0 eRC9r2R5bz RAHddWKH1 UQ4RXSQc3t uuyOnAiqJ ScNuGls7Hk sb+FJ8cnC 3BaoxSKKsn nIGYVQ3Ys rUW50T2TPg xvncFxvNS p4+rvaRqDs 9IZpeetUb yPc9Z0DFxK kpzQJSUOK 2xw9b52i64 Q2xdxdqey gOWQlMoCqu WBsh4BdIa P8Vic/uapj nwAOA/lmW P8JZeerQiR dpqJ7HKPk 1Hmn27xUxQ Ie7cnPG5y reCQGbvrFM uhWzrPYRT 16fduR2fWp 9piHgoroj ccfVwd3kqM aA8Q0R6Rq Z3tR0SxVtV ZJgw4kLz2 UlzEDEuiQd pPIeFocl/ eQ9y38HL6A dnLyh+TvY iV9oFatmdl P1cNAYywj 3LTZmMsxfB 1NsbSxNEL TkmKzMZwmm xKou8HfSk sbIiVOwMq4 tgUBcc54S x0MaWBifRZ 2lioPK43a tDnybu6crr 4R+2kIWO4 OThFzbqYoi baKJWPdOV zlinqhDhJ8 GkrnGZFnQ rPySkqBqUT 4iSKNtqEO IkJeUcYzia +aN3FxT5W GmAu3U/jiP 216Vyq6Cc FLtjmUsWX0 Tj9x85m4b GvfVFmRuaV CaUYX1p9L 9FdDtfDhO8 ydO/ZRE80 hIGKUxsFu+ VSF7rZ3pz Fip0fXXXgf KOwx1a44y Gl4Vp9rqUR 1n6av8UuF 0HjSsXcveV 0Ru4Da+tq WxRIv1VGNR M2tcUMEsF 7i4skeoM9h y+L99bRFE 2FMAnpuwVh NjTa9wuB0 U5NIHw5zZi cgRdqb9yC caKmxrSOTd 6T6fpEPI/ xatyqGoeuX b9GOgY3IH uxGWJXBz/H VqiPUndYw LVH4IdDGog nm5pHSAkC 0fe9qA0fk9 FfsP4qwxG B52gnFpzJg 8A8qmTui/ bOuX8b2rR6 HC3Fs5wCS UupSY+0Fre qsvIqmWUX KraCmlleV5 nkyXydu2x vbEDQ3QQKw olfOjl88M szsCbKZhrH LVO+tWtDp t00wcGz58n LjVHqTiul g2mHtYWnAU 8gPMREw1p gTgzi1kMGy aYF9ytFIZ np7F8+m/tH L1j5tDyTn 0f08e4cGCe +IO7K8W0O ZZNXekOdlG f+1DjXUZx zHUcrlWXJ1 vHthHSypx m3JO6Pi6hJ vWjy0h80p E/cegFL5oy JFO+mThOO R/td1QuPH9 kD6+5/o5A AtMlmXa7Ni STriFR6h8 z99CKTU3Oe RGfFRTh7f kYBrWtyvRA w4LJLRxWi isHDaR3w0a 2ZYebDNJn 5xbuzJzO/i UpzVx0OMU QZK8+0SuJ3 Marianna+8Qzvx aHoGqiU4za UB8ERphai tNH2gMfGdK O90NlnL6q Un0bVVG7la 9SATf6rjh CTrW5BP96A YaRZS8TUY ZXmxH3zmjj acqeMGWZ+ SLLICB86ZW OIbr3pRRf YsqAW8r/7G dcfHnh0iS pMe2Yp2mtL J0Uew/WZs oyPeXFmXTA TzhNjJqy4 7zi8QDQ6in PzNhckrHc J2nOBztnJQ CmvCQolOX S8kbrYys9P thlxc9Tn7 FeTua4jdVE cUFcqvuSD Gs3M4pnY+3 eQ1AlUQ5G 8X323nEe3s Nu5uUmaAX e4Ory0O+9k 9pzXK6anB 4p+z+7P7mW mxe6G+1i1 pMGTErkl0g UnSVWspCI g41kZiyXv/ iI5KMgdKk RUiaq8ELCU rEGdlHcN6 vLJiNw5Vi6 c7HhjZkbD /CMarPE7Xi d6f2eQEmu f3AM2hka2k 4GYjheLW7 sUQWE+YRAn QH3UKB4Ga It/E+OlZTy oWEGooOJM SamCi6yTz8 1cUiVjYO2 IGaermPZae ColbsnumH KFTb94yJtc A4sq4vAlh uJnvfj+xe9 4XSmF9VfL yxl2JA7hjb z+4tMceCp N91bqgOYQx 37M/mblXQ pNUjvnx/wv QhK3yB8Uk YMX3ontL9S +t5ZziGKv /T1+bySDA2 XYclLb9th 39TTmgLNwW UFrpTKMlY bbxZC3u+6o +Het6uCLj IJVkhlu0yQ Hkqk36jv2 UPGdKFyVgr opqTbJNYu 0kG8J1qTiO A/MmUUDde Lnv/hJp+6i cSwNTQbUR JzBOPDN9vE Ngch6sN5A 7p6dnS2a55 cOcZLgkdf z1TVD2dkOM Gejd0FUqK YShwnHLUki d1gWvC76l bBGz8tuoEP fU4cJR/kp Jklp7fVOYv k7bSKWAcF enqXiC3e40 EUDhcSBOC uo4vfTcNUs ACxCq33ne 3Bw7g+FRX6 g/yBOYvLG 7KfNc6fskK ZLPDiuVnC zuD41kvnJ5 N/kpnWP5M kiqv1cstTg 4MXbR0ptb tCy0YPchTr 58vc3Pczv QGrCF5632o iB0rhAnT0 THpnHcrQjn 7mxxFw33r 58WERkR+iT 1iRCnxSFz 2RSuL5pK0t lwjGdU0xG 701LHF/2w2 k8PxNH+UU FS0pwShqXu r2IdLq6/F 6I3mFsA45R dY6Oqtodt /2U1f26ASa kkHOD4zU9 wocyXa20LS c3HawBxUW 771Ng9fiTL 1rcsmTrNF jtaJ1Px3of PDnaWyxxR JaZaBpRHdv IfDgdE2t1 uA6bJ1Kndr jNGiNqFsq Gds1kQiN1s NnvMNAljj zpkEif7Jmi gpJ8niEe5 r+yDm47Rhu oRDV1knVH HxyTwmXv6/ hCoIRfP/s xM85unLRAa 0VZiK4871 fK9oTzn/n7 AZ6W2M9+O B9e2B4bWwF RPvH9zFwm Ok91XG+m5m d5qf792zX 1hu6Tb3iB2 qYkdoiOax U0+dlyr0r4 P02J22XAH Mk3c7AtCT4 mx/XCk+N+ GUVHMSrsrl u0gtj/mti OPQmrKL31a Sb7sap4N9 ihNFooCJ9j PQ220579c lOwNLTUtMl YYTh7Ta8L xbxl3KUQfq ek7GVjr/V i1IzQS6yDY 2YL06qsB2 OJwwquVlAy eH7Bpjxiy 0TXj76qijW IM9UzgpHN JkcxK+wfBc n14paVW3J IgkAn6gl55 npuNG5hu6 QT3A4PaCz4 9lugNfoV1 LF/BccsuAp jgyJFE4pl Lzrtgxa7pd aVUnQkrf3 0DeQMWI2mU aWytOpomb vorXNlNeiT bt/Marie/ jnPSN4qhgn rGiaNjq1c 6afTyFA4O5 1hgHHYM2e sGXd8iZeE2 jVZJB9Ta8 qKhyuPEK9l 6tU03L8SU jw2Ohm+s9S ryPUZ84u5 BpYKohzbLj jk/XbrxZX LXZbxX6Pb4 Zq6SgVCa6 S3q86EbtM0 McbXjkPGz X0ziwTc1G2 aKUeGbdOS Lakyq5ircw ZsmchxhNP e1oYynEXY7 wptpnNVR+ yj+LUqg35w t8Ofv+bP5 x7+/jV/Mff mT5OFX25/ cMlwRC0VRb k98oO+/ff 5lU7hQzbRy PrbYtRhvB ukW6m7uaF8 Arpd0odrJ IDNvzme93K 7nRdjNOOS kVLsuPF1a0 B1w6yW339 baXjexmayV MYFum3CoM AzXqm2a3Qr ua3305P1U 8EGIfcbNEv NVc+jjXRu iRTVJf9Mol iVHPvbX+Q 56S5TjmVLs iqMuy6SYZ OO8bg9bPj9 HJNje9Afn V+egXsXPHr BS/emdhgu CmGnbeIweZ IWzZoSZQu d91TCF8mvU is3Zxbof/ u8V0oZJi1B VgiJ97WAi DG+HKOrRNC un4dZDLFX phJsFBpmQW bNwVvT4kf 6S0Fc0PCpm GfGWtE79M FDWbnSHgVN iyYVE54S7 C2l/ikNmZW MH+MpXs0R UqVEk/dthF SJpV+J2y5 cfGHFzRZHK ZQfaXMUpV Ju8KECH7yO ucMnF0CVg M1W1q2hBLB vqhn5YmB6 xO+cJtrTTP NySrb48Zr Tp8WlYkIBJ 51GixRxOG 7CGx25CI+E GZ2/2YaMz ka3NQoyXjD Cv7bhrUtK ERbDCHSuWy epq6B5Lel dY8L7ez6N5 XRq7bMT/n rvjuPtw4y4 iN8+bShd9 O3/ZE6r1aK kcIo5wLwP l0TfNUDUfp g0Oydmb9o Wsb8zo3sSp fIovh64AO JgDHLptZgP 1+J1lLItn 9xdsygPuHG zlqnlmW3F snB9rCMg9u ZpM9RkUCH etZToNFqMF /SodYXjlM 5i3QRl0k78 z7RJtnTzK Q4PERGez73 rV1krw1W1 /hmGus7mhi CHPgM+i6/ 6PfLbXDns8 9NYOr+/WY 9XbN3VQbCM zWakDQ0NB IKCQh5anIo UwmItujAX L2xMT7pyHO tnYCnrevG hLoInrKg0K fPQ62iwAX QHIxwbGWiE 90VdCY5OL wNmnBG5zF1 SY4+M3+iu BXnchw9ofy fOgvnLo4x mg2KcJo/nW QylrLsYS3 eKy8R9EgiK WnrBi/E60 pGQdyOG6k7 NbTGvCNok vnwwWNTCSn grOYHo43C kLwMG1Kd3N XMu5/6Ks5 TqzHQapcVZ 2SQxOouGu eKnBQZi5Wn lbjpPmZvO CxScrN2QPG 0Ao1GWCkk F79ivoF8fC ayDfCm4Jq Blxkecug6B p73FgCehG dkKL+lTP2F HnZyuT/2E Hc9TQ/fVdB tRa9eyguc GZeE9HH3Ug guZjFZWK2 lfWiwKtreY 6DjkZVmda d7k1AdbnFx u2dnYKY0M u1XpXIM8qu Qn6igmLEE Qzw5C8VFyW Y+mTWqzFH aZJNBhUVBM KxytldIj0 Dmbj2CgkHh Pdaanv+Lq FHzgNt1VSV r6wg2fvbb E7Nq5lcWOk KXFYLHTYJ ArQmh0Ix5d S0bKwHj7S eXNc4X2mjb Margarita+YpX3L zoPuFh2Xs9 N5BEKE3s8 b1TusXS1i6 hKbezY0nT 44o3itX5Wz e1/7/jHri 0HT/jHrixE T0UXghV3y nplE9W2Eew 1CXtyiZD5 Ik+km8BkCZ dSziNAwX8 1Qd1svaH4c rogFWacl6 lkxvcMKG1F XX94elFkx B1O/3ophm9 ixycl1FC2 JTfhjaxn5g vr58Fs8RR 0ua5Sm3YL5 zwmR8vZ8U fx1XPwAwA7 Ry1FaYSpv Dc87ZLDxAO 0NRDOTZH8 O71ifvAL1Z cn33FOTlw NdJ2GNcF0e fTrNFQXHe 5xowOqe9cI Z7AJqU7ZL ezGsDtIngz b8DspNQa/ yKvPTvTg/R p3Rq7V4mb sPiHeaKwr2 KwKHyK5EK 2/FRzoLprV ifjijAAr9 wjYKoBKHnM iIXxj82o6 I8A2WRKU6Z UzKFiFMEt DzJq1Ht/an PRSK7Cbnm TpNFaOQpoq Qp1jf1lJ5 lPtjIUpKPB GZ9OzDU/r ozZ+F4ys45 dbaxxiHB5 35hrDA5XBw TtwYSoOaD Oyt/Q0tm/q 4Jfwt9ovG R9JM2rpiuF Vscn/vA68 6Of6qbUMhs 94pnukM8C Tsvatgr9g7 6MdtcJEW+ XsbnPwmrrc v2bXuUn3x xVgqop9pj7 USMbFjl/m 8ZFZW3LQw/ LXxFaWSJL C3bScRPShp nW2Bi2RLv 6FIZ7utUG0 16asr6ufL wpoAUc3w52 JkuUdWm6C kVKLYFSSlT gWGiorr/Y HBn9Xx2mwy fjdyQXU4F 68gSQrRTNB UWOPpaOyK ci9aQtVUnX 46BjF3lm1 QOFP2Ch7Bx yBYSZ1EoS UPZObkqO64 xbjZdFOMY J02fApMsCB NCAw9tf73 i34YzU6ebI hQ1ZryxzL aKQp+suJ0P hoy4QE+Hz e+4mmnnaIg tAMKwkp8G zxWS73wOVt Nf+ux227H dJ8L6jkoBU 6kLsee2np rd7bDa+q1o u57d3wK9m PUNguZr0l7 KQp+epPjV 4NytZ4FoIM X+4QYCe/2 JMMVwkrd7u TvwPIyprp JBRFDD7O5O x244gTgER 3RTzGvEYKk /BKUR4kIH OkfV1Z9bTi bvdz9B88P psv1CYm/n7 XTTTHPs+l VEQfSqyJR/ BQdbRY8/7 ocw7nR5Pvf 9JxPcYbdA x7+ADITAGc ULbXDYall keGIHpbJIl 9hQZC9OTl sHvSz+wC5M rFAlhgOcl Dr4L5/bNx2 4kt+xuEIN yUdv5EUoH+ 4+cebR6TY jcRAKqac+E SLyBOfaDN UuMpulJTlz GcyVpnhCj blPIwYcaZi /DxLVrvku QwnjlSMYsS Noia5rmXh JDjgKhFP0F s6S/rVmQw 9xnoCoiImI QFRkeSo+Y a0tUygj2XK DPsEQEWS7 ojSQRTGw25 uvAS4z1Cs j1GPiMYXh1 QSAV0dKpQ GKsfot9YIJ E0PB8R0GZ +V3DdMJQSc kjLo5FdW0 Cp2KC5VzXA bbrYJ8oJV WcYf4QXIAY FfstZLNru kliutaVoAC JiKJAnKLw /H3unJuI+N oaCUeimTS /ZBfcbYzFc k8F65Ea8s FTAVsxZulJ Hjm4Mbzk1 Jjd2smIUzq e80Kumfzx ImCb0m/ME2 uK4UYs109 R64JFLy69Z tceCZwAVA dOhyZ2o6uV MVI5/yYB+ jL2VACvkfY 9aHjRK+YB xL5tdRllV9 duWBCzrem ZOY7afA1SZ tnmGVYk62 pTzfqgvVKZ LSGY29LMP sMJt21tMJ4 X/kUuGjNa XO8+6UcAab ObkzWMhgK mqBLJYrtSX GOf6swNjZ fDPTH4Pkpo HW00dRrtM 8hgqYinDsu RTVP5N2YJ N5os1LHvjW /SyalxznF fSYzsYDO0u FqYpYbIlD UnP7YLdgqL MRqncJa6x xtjdSzvJIH KpIQQyTEI woea70vRV7 yHPlVZyry IVgxFN3yvY y9WqPAAdc WIsN4RREmb ktwVXUSDr wSvCGv2QBp F5xMJ2uHD TCzri2S88T Wl0kIH1Qp LVsK75i6c5 JyEAmdq1H bvBWPPo8Bk b3COpNU5R nT1DzRSfLN nJkWpC5mu pLjnKlnUZp K3xfhfsWk KW5R0IHyy8 pwsi4RJf9 5wiwYsqKaR MaX8JL2BU L6SLf0N22h 6ApJj5LAv 4dq5T3h0mg JGWoGyRlO U7Fr5qp8gz GQgnAihQ6 K0dpULZjZP I7PdKH3Ga AxlY5XfpSg q7UVsxZFm nZg0PJW0Ro 0yuyTCpmW tJU4ptwkJi mDeJoxSMN O+NWIA/qZK kmvoVe//a rMxnkhfQG2 fslZzmDrX MVY4O/ZJln TKzbJunkv MGKnNZqnhy IgxWDSLLk npGV59ehAP kEbrNlDm0 tySfiZMWAp oiTFXMUr9 sqiUPHHvK9 AdtsOVxGi 9SYCzBlaj1 SbjP7IWjd bv8IzPTdeG bQsPHAo0K Technologist Development/rBpDhYk bRGy0s0uB Ppu3a8lKew myXNjnGzb bDa2w9TQIm tyPKlckdu dCZtH1CjVH 9RjcUqZGD CcLDiHHjpn DbIsb9xWT WC76qla/th pqUtCd4WQ QKs04BMVej 0AfH9YgS2 Lk9LkDsteu SHMn2fgQe BtYyE8CJhT jR6J3oxZP F8SbXCiLIe R6xrAek2z hD9OxvRUBR oYnZmhyrG JlNYmiZw1R +1K6jTO+J UxYzplGJ/R 6lAGcJ4nb edkFIuqecO mGymIicdZ wQCUjHUNkT IMfJiS1Er WSonbUJ3ny s8EdFNNQH R7PeugTjO0 1LyXOpUxZ g+HUWoIL0G p8nvNFfT4 eAqxjgOrmI MmgArZpUH YGibGNUp4Q Qk9Vygx1M HzufCwidSH 9tifiNtf6 iI93Cay+pP TKQFyudRX zPJA/OoPxd 5AHnobZMH Uy9XFDE0lw FpHbck4SK WpWQH9PSng iHQiqgTyI vpCbzW6GPa hlP0vFcmf EEAWDHiVkz TeAvR4rNh zRtKY0XdoJ Xb22r2aWk 4ZMMWGGkbf amqncP9O7 r7GFZenPE6 NAv2f0rgV LamKWlrKoK taUovBzkJ tsCZtPdLzk BM1UJqohS rrCgopYxLW p8pM3uX+n zADiKG/WlK 0fG0Lp3oI CLMY0vJmXM 4Z3Q08sw6 yvEtBsiKJF trQxRrN1G aFbfrJQeXM 7APRuggdv VGic37wKzx h4NGUSZHN T2oirF/Jimmy CwE109Chi ph/6Iunkuz +SVEXflyV VBnW0rpbgK 9PAO1LCjM 4NqmKLuCKX 2YERug2ES 0nkYAFXMYs gbG4MJpx2 LYcksYoCpf 1L6S4qZaW ReuzFBFRFf D3IPFjykI HBGq4Y1j49 ZQFTkeScJ Bs+oaas/ZJ CCgaHw6fF mYr+6VOAVK OCu8MIfTb LGuiP5TjA/ sC9WkDNFT z/FyAVYb+w 9Gi0XmpPN cbhCF0x0LG 4UjGftuKu 37LK9rQ5Aq DE5esJEnF 2SeHZd90EP /+LzMu49s LEZBJnKuab 0ImHWU9wx zGEm7lgkLB cujlSDCjq 5kgxoDhUka XRMYVDFeN tdqbiac/l7 1CS1mPsQi 4YyVrK5iDX 9A8hCqWGl 9SyoYqspqQ bJtFtkBT4 D0LvDrutXi 3GNOJUxTC PIzF2jtbBp Ae1pibyyx Z8ZplxPbjO Y5Zvj1we3 9su2A3MQJz sZ+hsFFrY mliAVYxub4 UFLWjZl0j IRMe8WhfVn E/ZJaV6Mv bEKKc+01hh FZa+3s2BV YyMKvOKBVj FrEOFoS/y xLY81DJRYy YmPwmoipl Iug1myDBm8 fKdPYU4KY zU5KmlFx24 vaIYYWviJ D3yo2x1WGd enkx6z5rh 0e8Mn7I81B HGxsrmn94 7jB1abrWWe oGyV8XdXe j2nr2j8fqv VOySt+rch o3eXLQLR2i MohG5PQ1z WCcqUqjOK2 1vV+jo1L6 wSUJWAwUh7 FTdpdD3dV 60LOotf7Xp UsOOmkA/S csrJBx3ua4 SkAA6Y6Hl X+0Jwyf/7f rjxAROES7 2cmjaDgX46 ykJuC6NBJ UKHHpJMkuS HxGl636jM whjP9vOttA AMUFJCR5R sQaOohpd3p NNFsw1SqQ EPgRNIpt4g qIQSwd09U 3SRN34ScB7 OQKaYmyag FOMLZXjFGP j8Py2lLDC 1QRCbYn43O nrGp5GKB6 ANEWHuK7F9 litCzapKb 4wl1Rvx6kv GkVepkknc JsmnToqNsM +g1QzLInc 5Ngjm4BuVd 1ce81LeBG 079Q9oRyvu 1OSCwBJoC J++QuouOQx Q8gcTgx+A J6H8a6OIYW Pvl0EHpAW p9qCA16+kv JV8mr9oZ7 lpV/OXpdsN Jh00irIHx xSgoj6mE50 0FGKsHMVo ARiaZ2guPC YsmneixZH KZIiX6/Sw9 kgmz4cvZn wfG8qsVH6k lrMCFmD2D 4KUIqRMViK LM4HUKyOa 9iD0FNRZuR F5n5Fjaer xSJsuHkSya ucepfjOEW SjavsBkokr CE0VedBgh gI0oyonXLw aiyzzi6x2 X+4Lb4yX3v 2mxn7wWOl 2kqRK5FfIz mH2wMHS8B YseySt+pyJ XXUoX/uHA sn7hukjcVo 95C1yaM6y L1Fl3S9FQS WofgoztKn Gov8vKsmi2 eYu92vsIx TzB9d3egSn qLPpDdTUZ PomKp7MoSC RZgFS5gKx qHkWVYSquj clNr23EHq 74uIA/a+vq AYYbecoUp LZjAVMdECq ZgVcvOkfM JUncAX9xyD 3KCkslJat baNulWKA31 aLICpGPUF D5Gy6CDHSL WWBHu41Yi XzvPcCpEZD k2U5sKIny D36r/5dOuk 6SbUBki9T 6RiPBcgFaN 9QXvJxYY0 OYQ/+yWYip tHowi4XB5 HdeN9GPlxD 73fs+HujL /9YCqSVHq/ QYWO6lOQO ZJ+SQeRBZd 6ZbaDJhb2 cwbAiiTNKO dtoERJvRz LGLCCNk2YO 6lzFUkqTV SbZohR87/Z XOTg7AKsG TNfxypmym2 rxDVh94EN cj06rFzuKS 1V8OoQceb MmtJnVtShY 9rHBR2gPW YvFiOixM25 lsotk/Lee FEx+9pgzzo CoiJefQAV S9i5g33axw bTbZPitAZ XySlmrVO6c fUeJ9qO1T S8icb8mws4 +vWDPxAVs SpTEBVx/qI gKsLYTUFU pFA//d2nsk xLszc8pCK cCulGKsaKT e2vdHkiLP tb3VZwTeDM nagYHpXUi Qikm6jjuEi LYJcvLenq c8hx9ipuMY 6HQhV2Aj3 qUWvf1aYJy Z5jo9aAm4 TmYHQfR4qK rnLDZGdQ5 WwwFUBFDJk FiGOL5mR5 AWMz0znc4w 6MAqmIswM VHfTzMH4mA Sybbo9u50 V9l3sANVld OGhGVso+6 pas/GMqeIe zQuoxLdKE KmboMJLXv9 bskLL21JS NqmKGaqdSj K1zINo9Ta 2H9zFMf8NT nDsToBRsR czXCrYiZrg zh0YNXm4s hkPHg9BRnO EU8m5jbUG vyN0kzRQ9f v2AJ/WqkM vxO56U2kxS 4QuAhl3Gc 39QVmcrspT 6143ARnL7 fEbo7mqS5l jFbjEebLR iN//8qWXbK LFcYCaSki ua1maRvfmx eMJagwe4L Mp39rZ5KMN 0yYpdfXuu Znsfs5sHqo 3d74+YS44 1r7ziq4LAJ TOruivsfc aPzomKZ1GY gCnuOgOOc KZQJf9SDum NZ1jmvE9x 4qnStk/KB1 62fVL+HM5 QkYAr7CuSR xHWoUc2Zr F/42SYu6tZ l336kr+5g gL60vbRyBm XTysJa8GV HrJkwe1hyN TkTj5oZrZ UsR1KjSesS AKsiHWZAq xIklzWaTEc XDhgF6Ktr FTKH5S2IxY zm88QWxc/ fp5JYcHYL/ WSI5UyKqo btbXpNom1b oGrSKGTRi WiZUN4eSU4 T2Wr1ZMUP qS0hwUzSXL SAFcxJhDn PhJvB94wRW VdIrk9nCj 71EdfZa6yU /yBZzC3JU 6XHHldV+u2 V4schYUL2 FQke1vExDT F7wIMgpmo 2iO88KUle3 zlu0ZnegB mlmWvBVqBb TJXevyv92 2j5M+7bgOl MEX9ZRIHo 8bGz9XWIR/ EZM25Pner ZOy2PSXTEW A4BuQJaMN kWfSSdVJDG wpCLRoKSt nrJQdXmRNu GyWWXkpK4 qk3iLpqTlc SPmeFig0M YS3cqPDA9x lvqiJLicH CbEinnS8zM VZDqOdsou HKj4g3Fx+i IodKyZvrS dtBd1yp8Tc ftqoTFTlw cv/rpL0KgQ M+ThyD7Yw HtsvZVR8w6 GVJz3pffW 5q015kVMVb 3Iqw3kfuJ xVPnbadUg7 addspHbkM iGjEA0FXm+ grkeKTX5I 5xuky87Hus lzqOMUcQA Yg7QpkbOt2 9mi5PSaI2 CWRuPI0opf vsBaE9Ihw kbNrnk5uNZ hG2VCZOIU qOcUWYlaow xSPmHKUmy llGZW/py7Z 7ArVQrWvO P+VyKrPK/J tzkt1V2k0 flh9ZhtYJQ 0wDQgz9jO RHHWsO1cxe aCUlLVcsp 3KIyTPLF9B 6uZqVn40B yNPmlFAVCR ZKakbKWVv 2BBM3WqtHd LKbuhERZa OkvBViBMVs bm0K7suR2 tL/v5mCCWH Vq+03a7Qc 4AtlhQ3R3+ i4/jXZ0gg FUlKvyJboW iKEJ7d7KD fPJuB41+kH XdBAzviAS KPKtnz964n Ls6FaHNyU +e9wSxE7nL dTMUsZhsq kVIaJRypyH Sd9rp6YsU pvy37Bot0t YcVm8gbsJ RV4FQLW671 cSL74xxzq 7JaDt8eAuo 92Iqa06wn QVWMtaoU+n zt17lZauE jqr+FACriI GL9PWdPB/ AUYxknFcZQ QU5D4BOTm m81ZKwZLOd KuHGlACr6 Z9Cl/PJrxj 0xHdE4ZZd k/7LqOMVTH 8G5r6+4Rb M05O5aof4n nvzCKebSw HGKuXVynGI lndq7XdMY ae/kPMXcCT pQMVeHDlT MFYoDFXOGl Z8ujX8oBf fYRxQQFfMX 6xWMvE2LW IxpAkTFGBL FwGZKOWm8 B1Ex+0DHAX OGtnlJPUf kG9c1OW3bt NN/Ojy3I3 JWFDdZL30p QZf37w4sp w0qh8IyFGE xTpVupqIm UzElgYOXbP 7H8GxYbqC nDlUkRYBi1 GgmmNwx46 LQYeSvJ1Dz IkWD3fBiV THjTqqxupF VKX9FDRPa u77ifLWUMf cgOahToBX jIQOtGEdqQ CuSdGOojC pW3FuYd/M3 sBVjBABbM mR1pSbYtSv BhCWPr9TS iaC3UGWoGs vQsEVFHQR q4PD7RMRXE xTNlO2GiY yZrdZWk3FH lMKpesrCD 8prXC8p/ZJ WLulMftTR TZWyjsYQCw VwFEDk7OF m4YAdtcEqJ TUw+VMOGk gBWIytPgCL FNoOwWNJt zIWgdRjrqx ALJIkjzoK xiLsIZcs5/ G9lkxjkdD eSMb7LGwN8 l+BWISxvw KxCBsXVTdW glHIkuVcZ gFMYSy8DRa HpscObD8N DKsWdcQibs ziROgh5fe 93dcOYu8vd byh5gXkMo 7sZGQ9/Roberta 5VTrfz71O C7tx6O7hD6 BC5JAGvKm /MpOFFpwa8 c0QU3Y1Qq T2Ii9q5+y4 5OghEwv6W ziAqw/d6u4 sKeVOi65L H8GaL8QHER N2mnTheIx w4bmnwniCf 8CrBjfZiy 8vvoSwtjrq 1ojpMRSjp Tw/mkCy18/ nwRXMRYYz lWMbzzgKpK 5shBv4AYz cDoUXMVMq7 LdDqiyT4j ESfmfPe6CV MUAAS3fyR 5528pC89vw 27jdwa4hR PmTlbnY3u0 htvGagqyY LehwdeNLJO jedepi77m gDmuolOOKO 3DriX7S9S CmFaDV9Gjg ryndpQ5+3 BT4awVgN96 kv8vDW2jS JqCHyHk+66 AVjzR4mbd SlROumLIeC XySNG2HPr WWtDurfkA3 CrxiygKXO q640yOwagv R1x9uFTYS Wh7jWw3XIG 5jX8QH0eL 7hldiVys3N BOqsvt+JU kuddQBi/ly 6nknUn2GX rUXmQ7tWKn ecobAt1fG S5zC7iEZCA UyFIa5XiQ sCQViMesou UwRCs3Lb9 f7OiGqpJZp BBDg18BTk d7BZb10Ef+ oExbjVQRh 1KBKuVML53 QbYXP2mOv 2zD+zoQxka 3h4N7QGzx VHJ+lmShm5 f2hEgjsfX z9Mmp2Ybap LDqN+O/Dl 1tciICySrP xDDhCbUh5 XdUsRTlhBW DxAX9Psop 73bqlh7s4V 6tzdWUqNl e+IfWXeJ/u T3R5wE18W cbl+XZLMjB WQRZJUTkA WvZiELKacp 2haGJ2a2O IsLilnuzYu dyZMIo29h p7VGPkMYOy ALKasRpFB WUROgVlMae OKO+oVOvu pYgOuGPUPy mIEtkkZNe sDM5xscWuZ ydDJFZbnc pj9UFdLpMJ UKuxeVkd4 frUIHbTAB2 Mbic8QTBv u3vi0ymeAK vp548W4Nu HGpeGYxRg/ hjqqaUbgl QJ3MaJvqmf yam1M7GwT KNTnXYk4xQ Gsrqh7WbO AAyn7PxwuW WS5QV4jeQ tyhyzm+m70 97DlhNop7 6szFuOIyhG LeZbojMU8 36NXVfjoC6 R34bRrxEP WbmM8I+2kQ 9sBPS4fZN +1x6ph1rjH i9kvJ/apa M8kP+pLkSm Uoyr5rSs9 kExTwDDL2A GZqQ7A1BV Uopcg3hnVM ahKH4QZax Ja5WDhxjOR Ssuqh1XzN oAWUxIAUZO 06DvYWbFH TXmrrpfkvX CCFvEQG/a oKQnPrwlaT Nzh3qdz1E AKC+D8CuX2 SaGuQpyym MVDUCDX5sS iGWkHHQNM ZTa/grJIsl 4nLe7FHTk k/8MIZm8kE XZQoCxmzo amtUe8JRfS 41c/UABlk ULduBhpuXE h9phnvUji tH0JJoQhjG u28q13Xrj xk5jh+TVUp cNqMBZJKj 0lCX5XazF1 NeXkCofj1 5TkYFbBWCR JrtSXJFfq L953LAEU6X Mcv+6s7HE 5frUHHL/uf rqUntduSd qqWkIWHxFK J3P7CRbMa NBX3cgdP0D uqVpiFkeF ONLI9xfqhQ MWcTiwVD1 wqSUdMFELp T7mLqVrXs cZK1gCOolT dNevPg+Zc xZjzjLnLLL UwwoxcBZx NLTkuBSBmg pqzEoty1n cRDLnLMalJ NAL4zi6J4 2qS/Z5xfRJ Gm52tozAe VMmTFhSFi1 QC6ooJAY5 7TnkRDJ1c2 Tx7Ss0Rjr 8brxUU+pAR drvI2WUr3 jTsTbjih5m n4RuG/ZJj hgQF7TJShN OZlAGwiLW BVeLSsd8lo 7aY/AdVXP GUwndc5Xsz EtapYwHO7 yP5judPyWb jtcNjEUKJ sa6L8VJ3QF v360OlZUo pYwAWYyUgC xiObpkOyu TJcWuyFauU ANGS6Wjxa z9TAvgbNmt N2SbSLGxp zQ5koUbWYn Gkui6B6hv knmxgbGIZZ cBsngCRa9 VxsFjSF0x5 8cjl1uZDu gxo/oNPgD2 kv1qoIt6f 1chE6rn9n/ VgQ04UpB+ Gopgil6KbL MnZZ30/AW XaVJqpzoJb uykHEaRlX 5WxZWdCOIr OwbIYrZGU BqLQh99dpw nsV9UbXf5 aZDWUBAiG/ vLROWGe5H uXgyAiVCTn 28nTwAGyG Nx7NELFFEB KaXNSxKj3 wBZjKSDHAE YEIsZdTzz KzawRUUzB1 3MPwPHEp8 OcmKPmrIqP c+JTWpKLy kz6Nov9e3P vX/iu+1W9 JJt8tpYhcL lB55Q77sx hrdXn+Douglas U8uuOrfAC kNcyTUtZjI u4YCWX7Ev Ay2R8PydMt 8lyQNPAVM 5HkNVLo3mv Hario9AMh mJqHH1UfHl sTxJ8OGZj /mgZTKNQiT VOSj1OVZh lXXFOqYmOE hQGvmFKwT /Ekfrj5kbd FGCmhjvLM 4Vkp8AwJ3b YuSVdhrSp fhbWqdznK+ 2EDYDGzcr ev2T53+0py FopsbAxlG 7DIqsklZVC fLG8bmLG9 dF81xvpq8q Lo3M9yVsU d2CWl0+8Vf n2Pleoo0I vA87x1cvh6 jrDXXO4aC 6yGAbOP/05 HoBM7JlQa xeOERewSrU 6vTSC0pQL 8bdbIAnEe4 VJIRU0tfi SfCzzyYA4t aNfKmPZ3Z GROWMzVnSM WcwHniMXc LrTw/CpQ/d Txcdi183z YExbDgsUcs RiXGWwzFl m51W/G1ZEW cHbGoVC8S IcsHrlnHJb e3SLxAP+F 2FPS0jFNBZ MG942kBks YO2jdco0T9 vYS3Y9xGV rR8q7prBZy VY0AAQAwh eSUxexrrV1 qihEEqy0D S3chBXnWmg nABEsh3Se MS93Evn6Ex +MWWVZaBj wh9CPfiLi5 JE+s4C3i9 QBvMeMaJlZ /Ooa5gD8U ns/b6VHyi8 5RPoU66yS nvXbALWIPv 0KSN3avm5 gZ8qR63ahn PvCxgS5u0 xmXHu3uGOw gpEAi72ha jQOtXylHoT b8zOYGjuo UCfeyiDthD JWSjKGWNL vkHXeeEwcD dRGnJUF4X fsa7t6Aucm sdSyUzFGL RzjAwpWDFj EBCN7IdN9 eFGMlSIuxH QRqMTaAYC 6KaWX7wepz kayclRsxx 8jqsEVSJlf jKy6IaW9Y TRo+pHaFJH e4YzckeS1 AtohT+SWNd iEZWCv9Xm H8HSm1N4XD gXYfW2plq ZoEWXIpOSf 3X7bTNkkM axHoSwNrMQ 4qnLWYZxz OWswTEFFAi 0UhpZ/DCW ctBsbFnLXI lrXT1Ea0O BJlP1UrsxW kggnDjMWc tRhGLuasxa JNy1KVZ1Y 75JgUeRsoz v8yw3sTJc kKoshiAce1 pHy2jeglE WE/s+QYaZZ utzn31oay xbCfMYctnu e27ZPy+Ef rHbwGt8Mhm /JJpr7qZX qAtwhzJQNv CcAfg16dJ DqCq6DTlpD vLHCBEN4k 1gTALeKbiw O8XLyGbxC brXdGfcDHj x4MxIbWda 3eIsl+PjNb 8hYfHlpy+ aPhANYPhwB bJOlHzBFX t3xCI8mxuu x5gQvFI1A b2TDYqWbDl fQ0JRDSX6 O0Bu2U8Ozj rr5w0jYkh D4n1jptSum TNZ3RC3ir vyI0yK0inT WINXSoG0r IfPOPpL2yR FntknIppc M5ABdJ+tkv gze4po6Px afFbKMjs9g rVzkKp+0N pp65Y3uu2h ZHdQ6MFoH yfGPALWZcY oc5ObobDh nKPDvFS49v 34ubg8DzS LLxE+74mop KdHxNTUmO hFw0kPxbMB PhRXIbpTh 1DceFxh4lC ntf7lBtye fismlg3GUO pDu+8bdbJ 39RNcctcqh 54HyWwsk3 QbFOphibPR gvbMAtkvS CMrJegUQXX lJXiJKZ0X TpY1qIXfbU WANuMaoM3 XM9jTs89Do k1ucmUWSG atjn4XgG/w 3Y0gLQKVf ICVL3kRrGI eSFmuXMwY AtRmADwRgl HmYmFB1Gp hRBBg7SiF6 Q5HFJqOQo VPdoc1U35x vALVKolUt 2vSKPSXVUu V6XYUIOPx xUkZXCDCrl rXynihYod hbHcLWY9k8 WiIvxboG4 SJFFKSuDj5 6H3NOOK+w ltOERhXc3K RZdw9keij hiHdMdWhBm vO0XzhcFY G2u0yL19fK FFaJgq3MX 41QDcTEGJR BEU4YVmKV kT6s+bfGwb bJrSeg0Sl aeVylU+yV7 uSIPmqUWc iC2Fxc8LjV fOgNykUKV kvxrRgy5nJ EDKIiLKcs 5lPQ8WW5OR 0Ah+o/cC1 CI/qE5iCFl QCMPSJ1sQ X4coRHi+lK qV/D6fZ3V F0MFrYeLnu uh6cYYuKi 6CjEloRCtN 6AQfZXsxM HG0ak46dr+ LN72rRnoP XaowzY6kFT 46HUGL1C/ 74RZOEyz6h KeejhxMc9 tu+Dejm/ve 9ys0Co9YR ZuQm63kVYT 7iMymySi6 Kj7Q5RTHFy 3IyUKHWdt WN5gESuLQ8 xFZDcYQ/l 6rxtbGFvyF xA6KPVp41 DnLWZPNFgY I25nC+Ml6 1Ixfa0Khjy AXMxiOyyM U/B6NpAXd0 w5DJfDFnq UhPYNWBhnq J6Th1o1fz 7qPu7fymGg MR/xxK4Yf cSRiyeuTFZ D30bJF7kY +zMAn9pWC5 ZWONvu11g 6vS3AXyXiw gcEftCYxw rp8MecDo1P w2RQIaoTL MNFPE4pE/V jkbLkPMcQ N9pGUMBGo0 zDwL1B1Lv MNWesfFf3f r7EZBqAvf uAxei5xrXy V9tHYzKD/ m3iGxpjU+b htMVsuhsq ZdvDUAktCE YbICbMe5S ifxMsO9AEt KSxxt05fH yXWt6RI+q8 DB3ASQWfk Pzs5H7KfK4 y8KSFYqeK BG1zbSnWlD 59VskhdLi jNpuyZzV2T KsHoBZjrQ cIGwptCZ3B 0TRtryt0C 4r9/UirSHP RQf8LZFnz Al1JHn1K36 8x2M+OOWo xZxlnLebpi 8PVt0zlHQ b4r4AJoy6R EYdDBy5u4 mKeijhtMfw ModLUW95p uHWNV6QrUe VNJnPYIkv Bn7AGYtK4K hnIzu0wjL THVHNbKeVx z4XS6jx2b TFsiUBbjIl 9upFSmBbN Cb82fnsS5y KsIEBbjJU 6aIux/pyXM 6mv0GxQEs LvVUFbjAXn DG+w3jEnv MGmqmdzPcM ZbCjfqvrk BtYiyXFnRN k3PQaBwIn zVVWS2X2Vc 5D0HHx6Ub CLLuha922Y xqs/3Uwp3 t+p1+QN1iJ Kf0C7iNrO Iss+L0nXdg c4NIE6Zsb 6MFCc8UHyc +KzOpF54L QAHRiAHd5z v6lhWXsqV v6Ha94zY// laN9ISTsI clZqweBrO7 YdlLFqXOW B+RutHZhYU /Z+SbczRu snJlafBebk 75X4Stmph LnS1cHe7n9 dGFA0Hx1m YAvgDuYiGt HYWPJR2oP izeAeO0z8d E3y8WPwpT YfXT2vLF8z fyPO10QiC bvkV3bgaez hUBhqpD71 KlHW1UEhSu Za0q/TZOj Z0/vZ7L4lm 1TeqXbwFk kWTrstlTAR dfAWsf/p4 S2ifMzbGDV 5D1P8Uiym Ohoi79nfa2 hKuMaCaXV XsF67hljht QcdO4AIX7 aUrdRx5YFD 5H61Nwnqt JMRSU5P4es j2n9vz4TC LUqLlc9Wqn arHbxFDKI dvEWKPM/Re AdvkWTlXt Z5ltdFvfX2 SfcrsXhOH VdipUDOQaE LU8Nw9JB1 BGSoFPpBBk 6BUezAKXD K0agWg/2sd +vwhurP7C t+CpxKhYqd FBDPQe0x9 LS5O2+RJZ0 AM5hc66Yy mO0XC8VXj+ VmTr4WHAj yPJ/Lt0tVu IFdru3EGC lyq1xCRIp6 CNGduHhkx udauyjG3zk FU+WKLWtK b9sirZ1JXe lwEOyjkjM XWbZ+RfbZF a9aeA9ZwC YrYO/ppcEK DU8gRDY6S 4cunl/IfcL Ue47reMmX IjgITukHzv 42OnYxTmK 6YxdjhdaBX aTQppckr7 MrqPx4h95b ddxObM4Nt aaT3i86vYP 2A9fOy5Gc CtOduBjLyQ 7kIlaMHcj RXXTQUDK9c 78Q5VzkiV KxYV1XXpue dDeIbn7nE ckDsuNs3mX I5kuKPBsh BlnOhraDuB tkDrkV7Tk N0tC1tHX7i Ome5vKWy2 L0JWzyt2VY EnrExMSK7 pT6lhBmTNE 9Te9qoIPV s7/ZJ2hwP7 yZtm76ABI Kpp73UIxrR hbjxMUjCz Gduvm0fEWk 29R0HPE0X mAM4hpS46w F3BFsqaAO Vo2wXrcNGc SKqeOS/Vj 0JctJIvF8y AIx3zMLIn VeUWnHuqR2 mahemKe9Z eaC57xETKp PJPR01FC3 TniChAbS2K gg2mAl9dw nFKhurpSRl X0tq8wngu blDQT25Bcn 0X7xYl7vq 834gW5VFc+ con3BwV/l Y9lrLc5S+v AXOGPUsVk 7RwOQ3nJuV 8O2Nd+Nima bXZQs58xq+ FH1RL5z5+ nsiFJ3+wn7 1SfML+9mO 1Jws2YqfU+ bFEhir4bI 6tCP+Eu0Ij XZAZjsi+L RhCzWeCH41 NsjpNAPyt AJ/iEZAnjb 7P7WUbUlZ +PT1QHQ2v7 XVR+CpPcJ ReahT9/W1o 72MO3/5pD l9Tfmq0clL jV5W/MQBW v4OAEAqxqk +Re9rqj/X Jz/s25dSW1 UNat+2dVk T9UbPa6jxc dR9S9CHc1 xOq6ktVwyc Yx/OZOnQW Qo96DHT8c0 K9hJ/pk9+ OmGLVWJq0J ICOd+hPiV mRy/vV7SX9 rHj6LjqIv /57BVdfrv2 XvT1d5/85 zdGsnLz4b/ yVDYEYdEC Xwahr3/85L /96dWH1// 96/+dEfbOm GHu9LGope ooCu3zs45W o3Wl5PBnS 1oXqoE4kb/ pT199+8vS T/s3qIK0Z2 8M3Mm//kj pJ7hp/WXy7 X+kNjr8y4 gE2DWCr8Qv AVrt5yg7u 59+5J6klvr 6059A3z2c 2sA9Sjib0G RHMW753+l saQ0Q6oP/L BXi4ksP/f qXBZ/A3lbo b79+6Sf1o /7r4J6YpBX /vHv/46sf nn568/bff3 p6/69//fC cP32NN7I59 f/x3V+e/v zuhw+vvn/9 1EQSHEQ7u b989+O/vXr /+tunD++e fvvl/3jp55 753YKJeZ4 +PfrnVT+v9 rEMzm+9Sn spJUt8+6L/ 0f9dd46// fCRhPQj/+7 N+58+PH37 +vv3r18/ff HPT//yw7t v/w6E2tra6 r39/vX7X8 vk9IR/fP3d g74bdAGDy 4z+/ObVhzf k5g9Anobj 4fd/fffNq/ vapux2tq/ efvfq/Tcfn r578/bbN2 +//6/llL3i tz+8/ubD+ 0br88yo3yn f/tx97Dfn 29785//59m l8Wh8v/9f HU/+82ecvC 7rf/t3XT/ /yEuWLP/zD F//ri6d/+ Psvnp5+/3d P2TU+OoTs d6z7YzVe/9 +nP75/9+c 3375+/znXb M3oh8yF10 /dkwf18BiW 7396dUVEn ee4pMd2E/3 kH2ceUNxP ++TrqYkt1s Ec/kYo0p4 n4qQ1ucGF0 1Kn+kjan4 V+6js2qVOX Lw/3Z69w3 AiX2yIj9Kp 4522h7a8z 0y0zq3Z89Q u2Vzd7N30 7+92b9z++/ Ny/+evnv/ bUeg6q5C33 fWpLM8mLh //DSmR5bIC 30S++VP20 XIPiWpuseT Ce2Kh0kK+ f/wI5UlvSu u6Fuk2DRp F+/OfrQdk+ JB0Q9pq/T 0si15HEOd0 j6e//Hyq7 bdK2bS7/2V b9L8+07ks PnvlR5bYqL N+/fpkD/x DG5g8aNiFa ELV4teTci QplbmRvYmo CIqDtWC4q hio5MN4NlD JmS7SsK7A vTWVkaWFCb 3hbMCAwID k9OuU6HKEl P5BupyRvg RT5KOIaOc0 Jj667DF97 quA1FDQrMw 9SZXNvdXJ jMXO0LW6In 250PDwvRj MgMyAwIFIv RjIgMiAwI FIvRjEgMSA wIFI+Pi9Q py3fF9P3RT svUERGIC9 YCSo2EZ9Vs WFnZUIgL0 ltYWdlQyAv HM4vX2WFH T4+Ar9ESY8 av8NpCiVk MCBvYmoKPD wvVHlwZS9 Od215F5L6Y vW0lCJaVI lwZTEvQmFz ZUZvbnQvS YDjegX6iDQ hLUJvbGQv RM8uh3Rqte lqF7pzQH9 jdISfL43rm U4xOh6YRP 1bm6XqGuHe MCBvYmoKP DwvVHlwZS9 Ca917O3I3 HoI2jOYxEC lwZTEvQmF zZUZvbnQvS QZtypI5qL ZsF0GpW37g yV3qL3lcv iMmt0jHiuO vZGluZz4+ YgFqNB7hmr ntQISic0W nDgi8N5W5m XFySi4ieE 0VpSS9pNLe F1J0qOPpN 6Ryx9SDs83 0K2RgeJMd IMBaJV2kk1 FcygmtT6o oOE4srXEtS 08znA9wNb 3OOU2pl5Zv CjUgMCBvY moKPDwvVHl aOD6TQReb zc4FZPzRSQ OoYT01SC3 LaWRzWzYgM NTQOM8Sf0 TchIFeJt3F JO7at7CcH jcgMCBvYmo KPDwvUGFn ZXMgNSAwIF IvVHlwZS9 OLBLkyQ4wY z6SUG3gk4 JqCjggMCBv YmoKPDwvV Cg2lCZnB8C yZGlvIFNl cnZlciAxMi 2QCXTyFB8 SPDs6f4Gxd yhFcGlwaG IddRCHB7bm MTItTGVhZ CBTdHVkeSk oW0NgBPQx cihFcGlwaG FueSBDYXJ yiN8gZ3Uqe tVyGJ9Dkd 9kdWNlcihp GAN2lHPrJ XJwIDQuMS4 3YGX4EQOE H6jLTN9Odk VhdGlvbkR hdGUoRDoyM DIwMDgyMD R7OjX3Ld1s NCcwMCcpL 4G4qLfvsxp FcGlwaGFu eSBDYXJkaW 5cW5NkcrS mMT1XdEReF PY2BLZbuq RpbyBTZXJ2 ZXIgMTItT GVhZCkvTW9 aWTZ6NOnQ OjIwMjAwOD IwMDczNjQ 3TIN1CqQyR yk+Pgplbm RvYmoKeHJl ZgowIDkKM DAwMDAwMDA hHFQ0KBJq NSBmIAowMD AyYDk6MoH 1IDAwMDAwI X1kIeMhFB BbHTN2PGIm MDAwMDAgb iAKMDAwMDA 4NTYxMiAw MDAwMCBuIA owMDAwMDA bFXJ3LUAnZ NZnAL4kUm AwMDAwODU4 NzkgMDAwM DAgbiAKMDA gYFT4PUBq NyAwMDAwMC BuIAowMDA uLLd3RBQcT DAwMDAwIG 4gCjAwMDAw UVK4NMhvE DAwMDAgbiA KdHJhaWxl rpt7RF8XxI plIDkvSW5 wzuD6KTIyE z0GMLHgUG VmZDdjZmM2 ZDBlNDljM zhlMzIzODE 6RaJ3YoO5 MzIxPjwzMm RiOGFhZDQ 2Z5J9YiT6C nBzUjC8In N1KrH7Xovx CO9tO5Ohm 3QgNyAwIFI +PgpzdGFy dHhyZWYKOD YyNzQKJSV FT0YK ID Date Data Source [id number] 02/07/2020 09:09:00 AM MINNIET Miky Edgar [facility] 1965 [phone] Microbiology - Stool CulturesPROCEDURE: Culture,Stool RCE: Stool BODY SITE:COLLECTED DATE/TIME: 14:20 EDT RECEIVED DATE/TIME: 02/05/2020 15:15 EDTSTART DATE/TIME: 02/05/2020 15:15 EDT FREE TEXT SOURCE:ORDERING PHYSICIAN: Shayy RowellFINAL REPORTSFinal Report []Reported Date/Time: 02/07/2020 09:09 ED TNo enteric pathogens isolated Organisms routinely cultured include Salmonella, S higella, Campylobacter, Vibrio, E.coli 0157, Plesiomonas, Yersinia and Aeromonas.P RELIMINARY REPORTSPreliminary Report []Reported Date/Time: 02/06/2020 10:55 ED TThis culture is in progress and is being reincubated Name Value Range Interpretation Code Description Data Renae rce(s) Supporting Document(s ) ID Date Data Source [id number] 02/05/2020 05:50:00 PM EDT [facility] C Diff Toxin ordered by Discern rule CDI [id number] Name Value Range Interpretation Code Description Data Renae rce(s) Supporting Document(s ) C Diff Negative NO [facility] toxin - [facility] A positive C. difficile PCR test and neg ative C. difficile toxin test suggests toxigenic C. difficile is present but th e patient may be an asymptomatic carrier. Results must be interpreted in the donavon xt of patient symptoms and risk factors for CDI.Infectious Disease consultation is s trongly recommended to determine if the patient requires treatment for Clostridi um difficile infection. ID Date Data Source [id number] 02/05/2020 03:41:00 PM EDT [facility] Name Value Range Interpretation Code Description Data [facility] rce(s) Supporting Document(s ) C Diff, Negative CR [facility] DNA,pcr - [facility] Toxigenic Clostridium difficile DNA dete cted. Repeat testing should NOT be performed to test for resolution of disease. Repea t testing is ONLY indicated after 14 days of the initial positive result if new or re current diarrheal illness occurs.Results Called to dr swartz by florencio with read arnulfo k at 02/05/2020 15:40:40 EDT. 027 Strain Presumptive Neg NA [facility] ID Date Data Source [id number] 02/06/2020 11:03:00 AM EDT [facility] [id number] [facility] Patient: CHARLY CRENSHAW Age: 54 years Sex: Female : 1965 Associated Diagnoses: Elevated troponin I level; Weakness; Clostridium difficile colitis Author: Shayy Price MD [employer] Time seen: Date and time 02/05/2020 13:38:00. History source: Patient. Arriv al mode: Ambulance-BLS. History limitation: None. Additional information: Chief Comp laint from Nursing Triage Note : Chief Complaint 02/05/2020 12:54 EDT Chief Complaint pt presents to the ed via EMS for eval of pain and weakness r/ t Rheumatoid arthritis. Pt reports pain x several months, Pain is all over, Pt rep orts the sources of her pain are at her blisters, Pt is M/W/F HD . History of Present Illness 54 y/o female with multiple past medical history significant for RA, B-cell lymphoma s/p stem cell transplant 2011, IDDM, ESRD on dialysis MWF with [facility] dialysis 2 days ago, HTN, HLD, viral hepatitis C, cardiomyopathy, who was martinez gnosed with pemphigus vulgaris (3 months ago being treated outpatient by dermatology with cream with no improvement) who is brought to the ED by EMS for evaluation of since Monday generalized weakness and generalized pain (from pemphigus vulgari s) with associated non bloody diarrhea. Patient informs that her skin itches and ontiveros. She also complains of shaking chills for the past 2 months. Patient did not r eceive her dialysis this morning because she felt too weak to ambulate. SHe has not b een eating or drinking. She denies cough, SOB, or any other symptoms at this time. PCP: Gretchen Real [employer] Review of Systems Constitutional symptoms: Weakness, no f ever, no chills, no sweats. Skin symptoms: burning and itching blisters and skin le sions, no jaundice, no rash. ENMT symptoms: mouth sores, no sore throat, no nasal co ngestion. Respiratory symptoms: No shortness of breath, no cough. Cardiova scular symptoms: No chest pain, Gastrointestinal symptoms: Diarrhea, no abdominal pain, no nausea, no vomiting. Genitourinary symptoms: makes 2-4 cups of urine, No dysuria, Musculoskeletal symptoms: diffused pain, no back pain, no Muscle pain. Neurologic symptoms: No headache, no dizziness. Psychiatric sym ptoms: No anxiety, Endocrine symptoms: No polyuria, Hematologic/Lymphatic symptom s: Bleeding tendency negative, Allergy/immunologic symptoms: Impaired immunity Health Status Allergies: Allergic Reactions (Selected)Severity Not Documen tedMidodrine- Rash and sunburned feeling from head to toe.Penicillins- No reactions we re documented.Zosyn- Anaphylactic reaction.. Medications: Per nurse's notes. Immuniza tions: Per nurse's notes. Past Medical/ Family/ Social History Medical history: ResolvedIDDM - Insulin-dependent diabetes mellitus ([id number]): Resolved on 2017 at 52 years.Hepatitis C ([id number]): Resolved.Clostridium difficile diarrhea ([id number]): Resolved on 11/26/2015 at 50 years.Comments:11/21/2014 EDT 9:06 EDT Celestina Alvarenga RN liz pos EDT 15:38 MINNIET Celestina Rice RN liz pos 03/02/15MRSA (methicillin resistant staph aureus) cul ture positive ([id number]): Resolved on 11/27/2015 at 50 years.Comments: EDT 8:58 Celestina Chapman RN [facility] pos 03/30/16. Surgical history: Bronchoscop y Flexible (None) on 04/22/2019 at 53 Years.Comments:04/22/2019 18:49 Danelle Trujillo RN-populated from documented surgical caseVats Video Assisted Thorosc opy (Right) on 04/22/2019 at 53 Years.Comments:04/22/2019 18:49 Danelle Trujillo RN-populated from documented surgical caseThoracotomy (None) on 2018 at 53 Years.Comments:04/22/2019 18:49 Danelle Martínez RN-populated from documented surgical caseRepair Pseudoaneurysm (Right) on 10/10/2018 at 53 Years.Comment s:10/10/2018 19:12 EDT - Anastasiya Mayes RN-populated from documented surg ical caseColonoscopy - SN (None) on 03/28/2018 at 52 Years.Comments:03/28/20 18 11:10 EDT - Amparo Dewitt RN-populated from documented surgical caseRIGHT arm AV fistula creation on 09/09/2015 at 49 Years.permacath LEFT upp er chest currently used for Hemodialysis in the month of 08/2015 at 49 Years.Tubal Li gation 1996.Andreea Cath on right chest wall 02/2010.Lymph node removed X2.Comments: 15:32 EDT - Jackie Rae02/2010 and 07/2011Stem Cell Transplant 11/28.ampu tation right great toe.amputaton right 2nd toe..Amputation great toe ([id number]).C omments:07/25/2015 2:33 EST - Carleen Oliveraht groin stent.. Family histo ry: Heart diseaseFatherMotherHTN - HypertensionMother. Social history: wido wed. Problem list: Active Problems (41)A-V fistula Acute anxiety Anemia Asthma B-ce ll lymphoma Benign essential HTN Bronchitis Megha glabrata infection Cardiomyopath y Cellulitis Cough CRI (chronic renal insufficiency) Depressive disorder Diabe feliciano Diabetes mellitus without mention of complication, type I [juvenile type], no t stated as uncontrolle Diarrhea Edema ESRD (end stage renal disease) ESRD on hemodi alysis Fatigue History of chemotherapy HTN - Hypertension Hyperlipidemia Hypertension Insertion of Port-a-cath Leukemoid reaction Lymphoma Neuropathy Obesity Open wound o f left foot Osteomyelitis of toe of left foot Peritonitis associated with peritoneal d ialysis, subsequent encounter Personal history of tobacco use, presenting hazar ds to health Poor venous access Shingles Shortness of breath Staphylococcus aureu s bacteremia with sepsis Type I diabetes mellitus Unspecified hereditary and idio pathic peripheral neuropathy Unspecified viral hepatitis C without hepatic coma U nspecified vitamin deficiency . Physical Examination Vital Signs Vital Signs 02/05/2020 12:54 EDT Temperature Oral 98.9 DegF Systolic Blood Pressure 111 m mHg Diastolic Blood Pressure 71 mmHg Heart Rate Monitored 103 bpm HI Respiratory Rate 17 br/min . Measurements 02/05/2020 12:54 EDT Clinical Weight 102 kg Body Mass In dex Measured 36.14 kg/m2 >HHI Height/Length Measured 168 cm . Basic Oxygen Informati on 02/05/2020 12:54 EDT Oxygen Therapy Room air SpO2 95 % . General: Alert, chroni dayne ill appearing. Skin: disffused wounds and blisters in various stages of healin g consistent with her pemphigous vulgaris. Head: Normocephalic, atraumatic. Neck: Supple, trachea midline. Eye: Extraocular movements are intact, normal conjunctiva . Ears, nose, mouth and throat: dry oral mucosa, blisters on mucous membranes, no intact blisters. Cardiovascular: Regular rate and rhythm, No murmur, Normal perip heral perfusion, No edema. Respiratory: Lungs are clear to auscultation, respira tions are non-labored, breath sounds are equal, Symmetrical chest wall expansion. Gastrointestinal: Soft, Nontender, Non distended. Back: Nontender, Normal ran ge of motion. Musculoskeletal: No tenderness, no swelling, no deformity, l eft AV fistula. Neurological: Alert and oriented to person, place, time, and sit uation, No focal neurological deficit observed, normal speech observed. Lymph atics: No lymphadenopathy. Psychiatric: Cooperative, appropriate mood and affect . Medical Decision Making Differential Diagnosis: Weakness, anemia, dehydratio n, hypoglycemia, pneumonia, urinary tract infection. Rationale: 54 y/o female wi th multiple past medical history significant for RA, B-cell lymphoma s/p stem cell tr ansplant, IDDM, ESRD on dialysis MWF with last dialysis 2 days ago, HTN, HLD, bridget l hepatitis C, cardiomyopathy, who was diagnosed with pemphigus vulgaris who is brought to the ED by EMS for evaluation of worsened weakness and generalized pain w ith associated non bloody diarrhea weakness x 2 days. Differential diagnoses listed ab ove. After initial examination of the pt, the plan is to order labs, imaging, symptom control, and then reassess the pt's condition. Patient understands and agree s with plan for treatment. All questions addressed at this time . Documents revie wed: Emergency department nurses' notes, prior records. Orders Launch Order Pro file (Selected) Inpatient OrdersInProcess (In Process)CMP: OrderedAccess [place]: ED Fur Sorter: EKG: Saline Lock: Ordered (Dispatched)Urinalysis (UA) with Reflex Culture: Ordered (Exam Ordered)XR Chest (CXR) Portable: Ordered (In-Lab)Clostridium di fficile, DNA,pcr: Culture,Blood: Culture,Blood: Culture,Stool: Lactate Le srinivasan: Lipase Level: Rapid COV19: Completed.Glomerular Filtration Rate: CB C w/ Auto Diff: Differential, Automated: NS Bolus: 250 mL, IV Bolus, OnceTroponin-I: . bus driver/monitor: Time 02/05/2020 14:24:00, Rate 98, normal sinus rhythm. Electroca rdiogram: Time 02/05/2020 14:24:00, rate 98, normal sinus rhythm, no change from prio r EKG 04/23/2019. Results review: Lab results : Lab View 02/05/2020 14:43 EDT R apid COVID-19 Interp WBC 7.7 x10(3)/mcL RBC 2.79 x10(6)/mcL LOW Hgb 9.8 gm/dL LOW Hct 28.9 % LOW MCV 104 fL HI MCH 35.2 pg HI MCHC 34.0 gm/dL RDW 15.1 % HI Platelet 90 x10(3)/mcL LOW MPV 8.2 fL LOW Neut Auto 72.9 % Lymph Auto 23.1 % Blackford Auto 2.3 % Eos Auto 0.9 % Baso Auto 0.8 % Neut Absolute 5.6 x10(3)/mc L Lymph Absolute 1.8 x10(3)/mcL Blackford Absolute 0.2 x10(3)/mcL Eos Absolute 0. 1 x10(3)/mcL Baso Absolute 0.1 x10(3)/mcL Glucose Lvl 112 mg/dL HI BUN 46.7 mg/d L HI Creatinine 6.43 mg/dL HI eGFR- AA 8 mL/min/1.73m2 LOW eGFR-LORIE 7 mL/min/1. 73m2 LOW BUN/Creat Ratio 7.3 ratio Sodium Lvl 137 mmol/L Potassium Lvl 5.0 mmol/L Chloride 97 mmol/L LOW CO2 26 mmol/L AGAP 15 Calcium Lvl 8.3 mg/dL LOW ALT 11 IU/L AST 18 IU/L Alk Phos 44 IU/L Total Protein 5.8 gm/dL LOW Albumin Lv l 2.7 gm/dL LOW Glob 3.1 gm/dL A/G Ratio 0.9 ratio LOW Bili Total 1.2 mg/dL La ctic Acid Lvl 1.1 mmol/L Lipase Lvl 21 IU/L LOW Troponin-I 0.14 ng/mL HI Rapid CO VID-19 Negative COVID Source Nasal Swab 02/05/2020 14:20 EDT C Diff, DNA,pcr Posi tive 027 Strain Presumptive Neg . Radiology results: * Final Report *Reason For Exa mChest PainReportPROCEDURE: Radiograph Portable Chest 1 ViewCLINICAL HISTORY: Chest PainSCRIPT INFORMATION: chest painCOMPARISON: 06/03/2019TECHNIQUE:Ant eroposterior radiographic view of the chest was performed.FINDINGS:A right sided Por t-a-Cath is noted with its tip at the level of the superior vena cava.There is incre ased density at the right lung base. This increased density may represent infiltra te and/or effusion.There is blunting of the right costophrenic angle which could rep resent pleural reaction or a pleural effusion.There is no evidence for pneumo thorax.The heart is unremarkable.The mediastinum and hilar soft tissues are u nremarkable.The bony thorax is unremarkable.IMPRESSION:There is increas ed density at the right lung base. This increased density may represent infiltra te and/or effusion.Thank you for allowing [facility] to part icipate in the evaluation of this patient.Signature Line Final D ictated: Manuelito Hall MD02/05/20 15:33Signed: Manuelito Hall MD 02/05/20 15:34Transcribed by: RJFREPORTThis document has an image Result type: XR Chest PortableResult date: February 05, 2020 15:30 EDTResult status: Auth (Verified)R esult title: XR Chest PortablePerformed by: Manuelito Hall MD on February 04 15:33 EDTVerified by: Manuelito Hall MD on February 05, 2020 15:34 EDTE ncounter info: [id number], [facility] [place] - . LOWER BP CLINICAL IMPRESSI ON A SYMPTOM OF DEHYDRATION FROM DIARRHEA AND NOT EATING/DRINKING NO EKG CHANGES COVID NEGATIVE CXR EFFUSION VERSUS INFILTRATE GIVEN PAST EFFUSION AND CLINICAL PRESENT ATION IMPRESSION IS NOT FOR PNEUMONIA SHE DID NOT PRODUCE URINE IN THE ER C DIFF + EXP LAINING DIARRHEA CLINICAL IMPRESSION NOT SEPSIS SHE WAS TRANSFERRED BECAUSE WE LA CKED DERM/BURN AND THE EXTENT OF THE PEMPHIGUS VULGARIS PROMPTED THE MEDICINE ATTENDING TO RECOMMEND TRANSFER TO [facility] FOR BURN CONSULTATION NO ACTIVE CHEST PAIN U NCHANGED EKG ELEVATED TROPONIN TO BE FOLLOWED NO ACUTE CORONARY SYNDROME AT THIS TIME Reexamination/ Reevaluation Notes: Patient was reassessed. I discussed the ED cours e, lab and imaging results, and diagnosis with patient. I conveyed that, given the aforementioned, patient would need to be transferred to higher care facility at [facility]. Time was given to answer questions and address concerns. Dionicio traylor voiced understanding and were agreeable to plan of care.. NS 250 CC IV X 1 THE P ATIENT STATES HER BP NORMALLY HOVERS AROUND 110 TO 115 SYSTOLIC POST DIALYSIS HIGH S YSTOLIC 90'S SHE REQUESTED PAIN MEDICINE SEVERAL TIMES BUT WAS DENIED BECAUSE OF HER BP I FINALLY GAVE HER PERCOCET 1 TAB AND PREDICTED HER BP DID DECLINE BUT HER PAIN IMPROVED SHE RECEIVED A 2ND 250 CC NS BOLUS PRIOR TO TRANSPORT WITH EMS INSTRU CTIONS TO GIVE ANOTHER BOLUS IF SYSTOLIC BP<100 SHE FELT WELL AND PAIN WAS IMPROV ED Impression and Plan Diagnosis Elevated troponin I level - [id number] R79.89, Disc harge Weakness - [id number] R53.1, Discharge Clostridium difficile colitis - TMD52-II A04.72, Discharge Calls-Consults - 02/05/2020 16:09:00 , Faheem BENAVIDES, Tran, [facility], consult, [place]-texted. Discussed patient and patient's condition. Agrees with ED treatment and plan for patient to remain in the hospital and accepts patie nt's care moving forward.. - 02/05/2020 16:57:00 , Tran Mayen MD, Hospitalist, Dr. Mayen has evaluated the patient in the ED and wants patient to be transferred t o a burn center facility for higher level of care.. - 02/05/2020 17:39:00 , [facility], [place] call, consult, Discussed patient's condition with accepting physician Dr. Serenity leonardo who will be accepting patient's care under her service at [facility].. Plan Conditi on: Stable. Disposition: Transfer to other location: Facility name: [facility], Accepted b y: [facility]. Counseled: Patient, Regarding diagnosis, Regarding diagnostic results, Regarding treatment plan, Patient indicated understanding of instructions. Addendu m Attestation: Scribe Attestation: Erin Calhoun, 02/05/2020 13:47:00, Scribi ng for and in the presence of,, Shayy Price MD, Provider Attestation: I personall y performed the services described in the documentation, reviewed and edited the d ocumentation which was dictated to the scribe in my presence and it accurately records my words and actions., Shayy Price MD.02/05/2020 15:08:46 Comment by: Marina Carias se pv gave vc for treatment -------Marco Reyesa[address] [id number] BURLINGAME [id number] f/s disc requestedElectronically signed by Shayy Price MD 02/06/2020 11:03 EDTElectronic ally signed by Erin Calhoun 02/05/2020 16:27 EDTElectronically signed by Erin Calhoun 02/05/2020 17:46 EDTElectro nically signed by Erin Calhoun 02/05/2020 17:48 EDTElectronically signed by Erin Calhoun 02/05/2020 18:00 EDT Name Value Range Interpretation Code Description Data Renae rce(s) Supporting Document(s ) ID Date Data Source [id number] 06/03/2019 03:02:00 PM [facility] Patient Name: RADHA CRENSHAW MMRN: [id number] General DiagnosticACCESSION EXAM DATE/TIME PROCEDURE ORDERING PROVIDER [id number] 06/03/2019 10:25 XR Chest 2 Views Jessica BENAVIDES, Bonifacio Kwon (Verified) ESTReportPROCEDURE: Radiograph Chest 2 ViewsCLINICAL HISTORY : Follow Up Chest Radiograph. History of Pleural Effusion. Former SmokerSCRIPT IN FORMATION: j90, pleural effusionCOMPARISON: 05/06/2019.TECHNIQUE:Posteroanterior and lateral radiographic views of the chest were performed.FINDINGS:A right chest wall Me diport catheter is again seen.There is a moderate-sized right pleural effusion wi thout significant change as well as underlying right lower lobe infiltrate.T he left lung is clear.There is no evidence for pneumothorax.The heart is unremarkab le.The mediastinum and hilar soft tissues are unremarkable.The bony thorax is unremark able.IMPRESSION:Moderate-sized right pleural effusion with underlying right lower lob e infiltrate again seen.Thank you for allowing us to participate in the evalua tion of this patient. Final Dictated: Matt Montana MD. 1 08/04/18 14:59Signed: Matt Montana MD 06/03/19 15:02Transcribed by: GAY Name Value Range Interpretation Code Description Data Renae rce(s) Supporting Document(s ) ID Date Data Source [id number] 05/06/2019 02:44:00 PM [facility] Patient Name: RADHA CRENSHAW MMRN: [id number] General DiagnosticACCESSION EXAM DATE/TIME PROCEDURE ORDERING PROVIDER [id number] 05/06/2019 11:19 XR Chest 2 Views Jessica BENAVIDES, Bonifacio Kwon (Verified) ESTReportPROCEDURE: Radiograph Chest 2 ViewsCLINICAL HISTORY : Follow Up Hemothorax, Patient on DialysisSCRIPT INFORMATION: j94.2COMPARI SON: 04/27/2019TECHNIQUE:Posteroanterior and lateral radiographic views of the chest were performed.FINDINGS:There is a Port-A-Cath over the right mid lung with its tip in the superior vena cava.The lungs are clear.Again there is a moderate righ t pleural effusion which appears to be partially loculated laterally. The later al portion which may be loculated slightly more prominent. The left lung is clear.T here is no evidence for pneumothorax.Cardiac silhouette is enlarged without change.Th e mediastinum and hilar soft tissues are unremarkable.The bony thorax is unremark able.IMPRESSION:Left pleural effusion which may be partially loculated. The lateral portion which may be more loculated appears slightly more prominent compared to the prior study. Next Thank you for allowing us to participate in the evaluation of this patient. Final Dictated: Justin Stevenson MD 05/06/19 14:41Signed: Justin Noel MD 05/06/19 14:44Transcribed by: RK Name Value Range Interpretation Code Description Data Renae rce(s) Supporting Document(s ) ID Date Data Source [id number] 04/27/2019 09:11:00 AM EST [place] [facility] Patient Name: RADHA CRENSHAW MMRN: [id number] General DiagnosticACCESSION EXAM DATE/TIME PROCEDURE ORDERING PROVIDER [id number] 04/27/2019 09:07 EST XR Chest Portable Justin BENAVIDES, Hang Kwon (Verified)[place]rokee son For Exam(XR Chest Portable) Pleural EffusionReportPROCEDURE: Radiograph Por table Chest 1 ViewCLINICAL HISTORY: Pleural EffusionSCRIPT INFORMATION: pleural effu sionCOMPARISON: Chest x-ray dated 04/26/2019.TECHNIQUE:Anteroposterior radi ographic view of the chest was performed.FINDINGS:A right sided interna l jugular Port-a-Cath is noted with its tip at the level of the superior vena cava/r ight atrial junction, without change.Redemonstrated is a small to mode rate loculated right effusion, slightly increased since the prior study.This obs cures the right base.There is no evidence for pneumothorax.The heart is unremarkable.T he mediastinum and hilar soft tissues are unremarkable.The bony thorax is unremark able.IMPRESSION:Small to moderate loculated right effusion, slightly increased.Thank you for allowing us to participate in the evaluation of this patient. Final * Dictated: Mustapha BENAVIDES, Karen Ivey 04/27/19 09:09Signed: Karen Luciano MD 04/27/19 09:11Transcribed by: [facility] [place] Value Range Interpretation Code Description Data Renae rce(s) Supporting Document(s ) ID Date Data Source [id number] 04/27/2019 12:40:00 PM EST [facility] add to AM lab if possible, if not then a dd to AM labs tomorrow Name Value Range Interpretation Description Data Sup porting Code Source(s) Document(s ) Phosphorus 2.2 mg/dL 2.5-5.0 LO [facility] ID Date Data Source [id number] 04/27/2019 06:07:00 AM EST [facility] Name Value Range Interpretation Description Data Sup porting Code Source(s) Document(s ) Glucose Lvl 95 mg/dL 65-99 NO [facility] BUN 22.0 6.0-20.0 [place] mg/dL [facility] Creatinine 4.25 0.40-1.0 [place] mg/dL 0 [facility] BUN/Creat 5.2 7.0-29.0 [place] Ratio ratio [facility] Sodium Lvl 138 136-145 NO [place] mmol/L [facility] Potassium Lvl 3.9 3.5-5.1 NO [place] mmol/L [facility] Chloride 97 98-107 [place] mmol/L [facility] CO2 33 23-29 [place] mmol/L [facility] AGAP 8 5-15 NO [facility] Calcium Lvl 8.5 8.6-10.0 LO [place] mg/dL [facility] Total Protein 5.8 6.0-8.3 [place] gm/dL [facility] Albumin Lvl 2.4 3.5-5.0 LO [place] gm/dL [facility] Glob 3.4 2.0-4.5 NO [place] gm/dL [facility] A/G Ratio 0.7 1.0-2.2 [place] ratio [facility] Bili Total 0.8 0.3-1.2 [place] mg/dL [facility] Alk Phos 49 IU/L 38-126 NO [facility] AST 9 IU/L 15-41 LO [facility] ALT 8 IU/L 7-40 NO [facility] ID Date Data Source [id number] 04/27/2019 06:01:00 AM EST [facility] Added by Discern Rule GLB_ADD_GFR_CMP Name Value Range Interpretation Code Description Data Renae rce(s) Supporting Document(s ) eGFR-AA 13 >=60 LO [facility] mL/min/1.[address] eGFR-LORIE 11 >=60 LO [facility] mL/min/1.[address] ID Date Data Source [id number] 04/27/2019 05:44:00 AM EST [facility] Name Value Range Interpretation Description Data Sup porting Code Source(s) Document(s ) Neut Auto 54.5 % 50.0-80.0 NO [facility] Lymph Auto 23.7 % 14.0-44.0 NO [facility] [place] Auto 11.9 % 0.0-12.0 NO [facility] Eos Auto 9.0 % 0.0-7.0 HI [facility] Baso Auto 0.9 % 0.0-3.0 NO [facility] Neut 3.3 2.0-8.4 NO [place] Absolute x10(3)/[facility] Lymph 1.4 0.6-4.8 NO [place] Absolute x10(3)/[facility] [place] 0.7 0.0-1.1 NO [place] Absolute x10(3)/[facility] Eos Absolute 0.5 0.0-0.5 [place] x10(3)/[facility] Baso 0.1 0.0-0.3 NO [place] Absolute x10(3)/[facility] ID Date Data Source [id number] 04/27/2019 05:44:00 AM EST [facility] Name Value Range Interpretation Description Data Sup porting Code Source(s) Document(s ) WBC 6.0 4.0-10.5 NO [place] x10(3)/[facility] RBC 3.13 3.80-5.20 [place] x10(6)/[facility] Hgb 10.9 11.4-15.1 [place] gm/dL [facility] Hct 31.6 % 36.0-46.0 [facility] MCV 101 fL 80-98 [facility] MCH 34.8 pg 26.0-34.0 [facility] MCHC 34.5 32.0-36.0 [place] gm/dL [facility] RDW 15.2 % 11.0-15.0 [facility] Platelet 177 150-400 NO [facility] x10(3)/[facility] MPV 8.4 fL 8.5-13.0 LO [facility] ID Date Data Source [id number] 04/26/2019 02:06:00 PM EST [facility] Patient Name: RADHA CRENSHAW MMRN: [id number] General DiagnosticACCESSION EXAM DATE/TIME PROCEDURE ORDERING PROVIDER [id number] 04/26/2019 13:08 EST XR Chest Portable Jessica BENAVIDES, Bonifacio Kwon (Verified)Olivia son For Exam(XR Chest Portable) Chest Tube RemovalReportPROCEDURE: Radiograph Port able Chest 1 ViewCLINICAL HISTORY: Status Post Chest Tube RemovalSCRIPT INFORMATIO N: s/p chest tube removalCOMPARISON: Chest x-ray 04/26/2019TECHNIQUE:Anteroposterior radiographic view of the chest was performed.FINDINGS:Right chest port is i n place with catheter tip in the SVC.Interval removal of a right chest tube. There is no pneumothorax.A small right pleural effusion is again noted, unchanged. Ther e is adjacent atelectasis. The left lung is clear.The heart is unremarkable.The medi astinum and hilar soft tissues are unremarkable.The bony thorax is unremark able.Right subclavian vascular stent is noted.IMPRESSION:Interval removal of a r ight chest tube. There is no pneumothorax.A small right pleural effusion is again no kael, unchanged.Thank you for allowing us to participate in the evaluation of this pa tient. Final Dictated: Reilly Yip MD 04/26/19 14:03Signed: Reilly Mendoza MD 04/26/19 14:06Transcribed by: VL Name Value Range Interpretation Code Description Data Renae rce(s) Supporting Document(s ) ID Date Data Source [id number] 04/26/2019 07:35:00 AM EST [facility] Patient Name: RADHA CRENSHAW MMRN: [id number] General DiagnosticACCESSION EXAM DATE/TIME PROCEDURE ORDERING PROVIDER [id number] 04/26/2019 07:26 EST XR Chest Portable Jessica BENAVIDES, Bonifacio Kwon (Verified)Olivia son For Exam(XR Chest Portable) PostOp CT SurgeryReportPROCEDURE: X ray Portable Chest 1 ViewCLINICAL HISTORY: Postop CT surgery.COMPARISON: 04/25/2019 at 11:01 AM chest radiograph.TECHNIQUE:AP portable x ray view of the chest was performed.FIND INGS:A right sided Port-a-Cath is noted with its tip at the level of the superior cav oatrial junction.A right chest tube is again noted terminating at the right lung base .A small pneumothorax at the right lung base is again noted. This appears more pronou nced when compared to prior examination.Mild diffusely prominent interstitial marking s are again noted.There appears to be a small amount of right pleural fluid. There is a left pleural effusion.The cardiomediastinal silhouette is within normal limits.IMPRE SSION:Small right pneumothorax at the right lung base appears more pronounced when c ompared to prior examination. Right chest tube is in place.Thank you for allowing us to participate in the evaluation of this patient. Final Dictated: Corbin Salmon MD 04/26/19 07:31Signed: Corbin Carvalho MD 04/26/19 07:35 Transcribed by: [facility] Name Value Range Interpretation Code Description Data Renae rce(s) Supporting Document(s ) ID Date Data Source [id number] 04/26/2019 04:27:00 AM EST [facility] Added by Discern Rule GLB_ADD_GFR_BMP Name Value Range Interpretation Code Description Data Renae rce(s) Supporting Document(s ) eGFR-AA 10 >=60 LO [facility] mL/min/1.7 - [address] eGFR-LORIE 8 >=60 LO [facility] mL/min/1.7 - [address] ID Date Data Source [id number] 04/26/2019 04:27:00 AM EST [facility] Name Value Range Interpretation Description Data Sup porting Code Source(s) Document(s ) Glucose Lvl 119 65-99 [place] mg/dL [facility] BUN 37.0 6.0-20.0 [place] mg/dL [facility] Creatinine 5.54 0.40-1.0 [place] mg/dL 0 [facility] BUN/Creat 6.7 7.0-29.0 [place] Ratio ratio [facility] Sodium Lvl 138 136-145 [place] mmol/L [facility] Potassium Lvl 3.7 3.5-5.1 [place] mmol/L [facility] Chloride 96 98-107 [place] mmol/L [facility] CO2 33 23-29 [place] mmol/L [facility] AGAP 9 5-15 NO [facility] Calcium Lvl 9.1 8.6-10.0 [place] mg/dL [facility] ID Date Data Source [id number] 04/26/2019 04:06:00 AM EST [facility] Name Value Range Interpretation Description Data Sup porting Code Source(s) Document(s ) Neut Auto 66.7 % 50.0-80.0 NO [facility] Lymph Auto 17.4 % 14.0-44.0 NO [facility] [place] Auto 8.1 % 0.0-12.0 NO [facility] Eos Auto 6.8 % 0.0-7.0 NO [facility] Baso Auto 1.0 % 0.0-3.0 NO [facility] Neut 4.4 2.0-8.4 NO [place] Absolute x10(3)/[facility] Lymph 1.2 0.6-4.8 NO [place] Absolute x10(3)/[facility] [place] 0.5 0.0-1.1 NO [place] Absolute x10(3)/[facility] Eos Absolute 0.5 0.0-0.5 NO [place] x10(3)/[facility] Baso 0.1 0.0-0.3 NO [place] Absolute x10(3)/[facility] ID Date Data Source [id number] 04/26/2019 04:06:00 AM EST [facility] Name Value Range Interpretation Description Data Sup porting Code Source(s) Document(s ) WBC 6.7 4.0-10.5 [place] x10(3)/[facility] RBC 3.28 3.80-5.20 [place] x10(6)/[facility] Hgb 11.3 11.4-15.1 [place] gm/dL [facility] Hct 33.5 % 36.0-46.0 [facility] MCV 102 fL 80-98 [facility] MCH 34.5 pg 26.0-34.0 [facility] MCHC 33.8 32.0-36.0 [place] gm/dL [facility] RDW 15.8 % 11.0-15.0 [facility] Platelet 180 150-400 NO [place] x10(3)/[facility] MPV 8.6 fL 8.5-13.0 NO [facility] ID Date Data Source [id number] 04/25/2019 12:51:00 PM EST [facility] Patient Name: RADHA CRENSHAW MMRN: [id number] General DiagnosticACCESSION EXAM DATE/TIME PROCEDURE ORDERING PROVIDER [id number] 04/25/2019 11:22 EST XR Chest Portable Jessica BENAVIDES, Bonifacio Valdovinos Auth (Verified)Olivia son For Exam(XR Chest Portable) Chest Tube RemovalReportPROCEDURE: Radiograph Port able Chest 1 ViewCLINICAL HISTORY: Chest Tube RemovalSCRIPT INFORMATION: chest tu be removalCOMPARISON: 04/25/2019TECHNIQUE:Anteroposterior radio graphic view of the chest was performed.FINDINGS:A right sided Port-a- Cath is noted with its tip at the level of the superior vena cava.There is increase d density at the right lung base. This increased density may represent infiltra te and/or effusion.There is no evidence for pleural effusion. The left lung appears clear.Previously noted loculated pneumothorax is less conspicuous and there is a chest tube seen at the right base.The heart is unremarkable.The mediastinum and hilar s oft tissues are unremarkable.The bony thorax is unremarkable.IMPRESSION:Chest tube se en at the right base the previously noted loculated pneumothorax is seen at the ri ght base is less conspicuous.Thank you for allowing us to participate in the evalua tion of this patient. Final Dictated: Manuelito Hall MD 06/25/18 12:45Signed: Manuelito Hall MD 04/25/19 12:50Transcribed by: DOROTHY Name Value Range Interpretation Code Description Data Renae rce(s) Supporting Document(s ) ID Date Data Source [id number] 04/25/2019 09:07:00 AM EST [facility] Added by Discern Rule GLB_ADD_GFR_BMP Name Value Range Interpretation Code Description Data Renae rce(s) Supporting Document(s ) eGFR-AA 12 >=60 LO [facility] mL/min/1.[address] [place] [address] eGFR-LORIE 10 >=60 LO [facility] mL/min/1.[address] [place] [address] ID Date Data Source [id number] 04/25/2019 09:07:00 AM EST [facility] Name Value Range Interpretation Description Data Sup porting Code Source(s) Document(s ) Glucose Lvl 128 65-99 [place] mg/dL [facility] BUN 26.0 6.0-20.0 [place] mg/dL [facility] Creatinine 4.47 0.40-1.0 [place] mg/dL 0 [facility] BUN/Creat 5.8 7.0-29.0 [place] Ratio ratio [facility] Sodium Lvl 136 136-145 [place] mmol/L [facility] Potassium Lvl 4.0 3.5-5.1 [place] mmol/L [facility] Chloride 95 98-107 [place] mmol/L [facility] CO2 32 23-29 [place] mmol/L [facility] AGAP 9 5-15 NO [facility] Calcium Lvl 8.9 8.6-10.0 NO [place] mg/dL [facility] ID Date Data Source [id number] 04/25/2019 08:54:00 AM EST [facility] Name Value Range Interpretation Description Data Sup porting Code Source(s) Document(s ) Neut Auto 69.3 % 50.0-80.0 NO [facility] Lymph Auto 15.9 % 14.0-44.0 NO [facility] [place] Auto 9.4 % 0.0-12.0 NO [facility] Eos Auto 4.4 % 0.0-7.0 NO [facility] Baso Auto 1.0 % 0.0-3.0 NO [facility] Neut 4.2 2.0-8.4 NO [place] Absolute x10(3)/[facility] Lymph 1.0 0.6-4.8 NO [place] Absolute x10(3)/[facility] [place] 0.6 0.0-1.1 NO [place] Absolute x10(3)/[facility] Eos Absolute 0.3 0.0-0.5 NO [place] x10(3)/[facility] Baso 0.1 0.0-0.3 NO [place] Absolute x10(3)/[facility] ID Date Data Source [id number] 04/25/2019 08:54:00 AM EST [facility] Name Value Range Interpretation Description Data Sup porting Code Source(s) Document(s ) WBC 6.1 4.0-10.5 [place] x10(3)/[facility] RBC 3.23 3.80-5.20 [place] x10(6)/[facility] Hgb 11.2 11.4-15.1 [place] gm/dL [facility] Hct 32.9 % 36.0-46.0 [facility] MCV 102 fL 80-98 [facility] MCH 34.7 pg 26.0-34.0 [facility] MCHC 34.0 32.0-36.0 [place] gm/dL [facility] RDW 15.3 % 11.0-15.0 [facility] Platelet 172 150-400 NO [place] x10(3)/[facility] MPV 8.7 fL 8.5-13.0 NO [facility] ID Date Data Source [id number] 04/25/2019 07:58:00 AM EST [facility] Patient Name: RADHA CRENSHAW MMRN: [id number] General DiagnosticACCESSION EXAM DATE/TIME PROCEDURE ORDERING PROVIDER [id number] 04/25/2019 07:12 EST XR Chest Portable Jessica BENAVIDES, Bonifacio Valdovinos Auth (Verified)Olivia son For Exam(XR Chest Portable) PostOp CT SurgeryReportPROCEDURE: Radiograph Port able Chest 1 ViewCLINICAL HISTORY: Fluid on lungSCRIPT INFORMATION: Postop CT surger yCOMPARISON: Chest x-ray dated 04/24/2019.TECHNIQUE:Anteroposterior radi ographic view of the chest was performed.FINDINGS:A right sided interna l jugular Port-a-Cath is noted with its tip at the level of the superior vena cava.R edemonstrated are 2 right basilar chest tubes.There is stable moderate volume lo ss in the right lung.There is a small loculated pneumothorax at the right cost ophrenic angle, new since 04/24/2019 but present on prior study dated 04/23/2019. Reportedly, this is clinically expected as the patient has a trapped right lung.The re is no evidence for pleural effusion.There is no evidence for left pneumothorax.The heart is unremarkable.The mediastinum and hilar soft tissues are unremarkable.The bony thorax is unremarkable.IMPRESSION:Small loculated right basilar pneumothorax, al so present on the prior chest radiograph dated 04/23/2019. Two basilar chest tubes in place.Wet reading communicated via [email or web address] (with confirmation of receipt) to Bonifacio Lopez MD on 04/25/2019 at 7:56 AM.Thank you for allowing us to particip ate in the evaluation of this patient. Final Dictated: Karen Luicano MD 04/25/19 07:45Signed: Karen Luciano MD 04/25/19 07:58Transcribed by: [facility] [place] Value Range Interpretation Code Description Data Renae rce(s) Supporting Document(s ) ID Date Data Source [id number] 04/24/2019 01:11:00 PM EST [facility] [place] [id number]: [phone] Fax: [phone] Fernandez M.D., Director of PathologySURGICAL PATHOLOGY REPORTPatien t: RADHA CRENSHAW MAccession #: [id number]: 04/22/2019 18:08Rec eived: 04/23/2019 08:31Reported: 04/24/2019 13:11Clinical Diagnosis and HistoryLymph suly, s/p stem cell transplant 2012.Specimen(s) Received1:Right pleural biopsy - frozen2:Right pleural biopsy3:Right pleural peelFINAL MICROSCOPIC DIAGNOSIS1 . Pleura, right, biopsy:- Fibroconnective pleural tissue with acute and chronic in flammation and hemorrhage.- Negative for lymphoma.- Negative for malignancy. 2. Pleura, right, biopsy:- Blood and fibrin with organizational changes.- Negative for ly mphoma.- Negative for malignancy. 3. Pleural peel, right, excision:- Small detached f ragment of inflamed pleural tissue in a background organizing blood and fibrin.- Negative for lymphoma. - Negative for malignancy. Case CommentCase interpreted at [facility], [address] [place], [place] [address]Electronical ly Signed By: César Barbour MD, proxy for Smith Galloway M.D.Date/Time Reporte d: 04/24/2019 13:11:06Gross Description1. Labeled with the patient's name, da te of , right pleural biopsy and received fresh is a 0.9 x 0.6 x 0.1 cm w felecia-red tissue. A touch preparation is performed. Submitted in toto for frozen section and resubmitted for permanent section in cassette 1.1FS. 2. Label ed with the patient's name, date of , right pleural biopsy and received in for russell 1.3 x 0.9 x 0.2 cm john-red tissue. Submitted in toto in one cassette.3. Labeled with the patient's name, date of , right pleural peel and received i n formalin are multiple pink and yellow tissues that measure 6.9 x 5.5 x 0.7 cm in aggregate. Brim Greaser Operator sections are submitted in six casettes.[facility] hospital/04/23/2019A magdiel BURRELL, ([facility])Intraoperative Consult- Frozen Section 1. Right P leural Biopsy:-No evidence of lymphoma.-Favor reactive.-Called to Dr. Lopez in OR.Per Dr Brian Partida: Intraoperative evaluation/immediate assessment performe d at [facility], [address] [place] [address].Electronic ally Signed By: JUAN C Olsenate/Time Reported: 04/23/2019 15:05:48Amendments for Intraoperative Consult- Frozen Section (04/23/2019) Name Value Range Interpretation Code Description Data Renae rce(s) Supporting Document(s ) ID Date Data Source [id number] 04/24/2019 11:42:00 AM EST [facility] Name Value Range Interpretation Description Data Sup porting Code Source(s) Document(s ) C Diff, Negative NA [place] DNA,pcr [facility] 027 Strain Presumptive NA [place] Neg [facility] ID Date Data Source [id number] 04/24/2019 07:41:00 AM EST [facility] Patient Name: RADHA CRENSHAW MMRN: [id number] General DiagnosticACCESSION EXAM DATE/TIME PROCEDURE ORDERING PROVIDER [id number] 04/24/2019 07:37 EST XR Chest Portable Jessica BENAVIDES, Bonifacio Valdovinos Auth (Verified)Oilvia son For Exam(XR Chest Portable) PostOp CT SurgeryReportPROCEDURE: Radiograph Port able Chest 1 ViewCLINICAL HISTORY: Chest RadiographSCRIPT INFORMATION: CXRCOMPARI SON: 04/23/2019.TECHNIQUE:Anteroposterior radiographic view of the chest was perfo rmed.FINDINGS:A right sided Port-a-Cath is noted with its tip at the level of the r ight atrium. Right chest tubes are again noted in place.There is opacity at the r ight base, likely representing effusion and/or parenchymal disease.Left lung is clear.There is no evidence for pneumothorax.The heart is unremarkable.T he mediastinum and hilar soft tissues are unremarkable.An endovascular stent overl ies the right lateral subclavian region.IMPRESSION:Previously noted right loculated pneumothorax is no longer discerned. Otherwise no significant faulkner ge from the prior study.Thank you for allowing us to participate in the evalua tion of this patient. Final Dictated: Vahe Baxter MD 1 06/24/18 07:38Signed: Vahe Baxter MD 04/24/19 07:41Transcribed by: KEARA Name Value Range Interpretation Code Description Data Renae rce(s) Supporting Document(s ) ID Date Data Source [id number] 04/24/2019 06:22:00 AM EST [facility] Added by Discern Rule GLB_ADD_GFR_CMP Name Value Range Interpretation Code Description Data Renae rce(s) Supporting Document(s ) eGFR-AA 12 >=60 LO [facility] mL/min/1.[address] eGFR-LORIE 10 >=60 [facility] mL/min/1.[address] ID Date Data Source [id number] 04/24/2019 06:22:00 AM EST [facility] Name Value Range Interpretation Description Data Sup porting Code Source(s) Document(s ) Glucose Lvl 149 65-99 [place] mg/dL [facility] BUN 27.0 6.0-20.0 HI [place] mg/dL [facility] Creatinine 4.70 0.40-1.0 [place] mg/dL 0 [facility] BUN/Creat 5.7 7.0-29.0 LO [place] Ratio ratio [facility] Sodium Lvl 138 136-145 NO [place] mmol/L [facility] Potassium Lvl 4.1 3.5-5.1 NO [place] mmol/L [facility] Chloride 97 98-107 [place] mmol/L [facility] CO2 33 23-29 [place] mmol/L [facility] AGAP 8 5-15 NO [place] [facility] Calcium Lvl 9.2 8.6-10.0 NO [place] mg/dL [facility] Total Protein 6.3 6.0-8.3 NO [place] gm/dL [facility] Albumin Lvl 2.6 3.5-5.0 LO [place] gm/dL [facility] Glob 3.7 2.0-4.5 NO [place] gm/dL [facility] A/G Ratio 0.7 1.0-2.2 [facility] ratio [facility] Bili Total 0.7 0.3-1.2 NO [place] mg/dL [facility] Alk Phos 53 IU/L 38-126 NO [facility] AST 11 IU/L 15-41 [facility] ALT 8 IU/L 7-40 NO [facility] ID Date Data Source [id number] 04/24/2019 06:19:00 AM EST [facility] Name Value Range Interpretation Description Data Sup porting Code Source(s) Document(s ) Magnesium 1.9 mg/dL 1.6-2.6 NO [facility] ID Date Data Source [id number] 04/24/2019 06:19:00 AM EST [facility] Name Value Range Interpretation Code Description Data Renae rce(s) Supporting Document(s ) LDH 88 IU/L 100-190 [facility] ID Date Data Source [id number] 04/24/2019 05:37:00 AM EST [facility] Name Value Range Interpretation Description Data Sup porting Code Source(s) Document(s ) Neut Auto 78.3 % 50.0-80.0 [facility] Lymph Auto 10.8 % 14.0-44.0 [facility] [place] Auto 10.4 % 0.0-12.0 NO [facility] Eos Auto 0.2 % 0.0-7.0 [facility] Baso Auto 0.3 % 0.0-3.0 NO [facility] Neut 6.1 2.0-8.4 NO [facility] Absolute x10(3)/[facility] Lymph 0.8 0.6-4.8 NO [place] [facility] x10(3)/[facility] [place] 0.8 0.0-1.1 NO [place] Absolute x10(3)/[facility] Eos Absolute 0.0 0.0-0.5 NO [place] x10(3)/[facility] Baso 0.0 0.0-0.3 NO [place] Absolute x10(3)/[facility] ID Date Data Source [id number] 04/24/2019 05:37:00 AM BRAD [facility] Name Value Range Interpretation Description Data Sup porting Code Source(s) Document(s ) WBC 7.8 4.0-10.5 NO [place] x10(3)/[facility] RBC 3.20 3.80-5.20 [place] x10(6)/[facility] Hgb 11.0 11.4-15.1 [place] gm/dL [facility] Hct 32.4 % 36.0-46.0 [facility] MCV 101 fL 80-98 [facility] MCH 34.3 pg 26.0-34.0 [facility] MCHC 33.8 32.0-36.0 NO [place] gm/dL [facility] RDW 15.3 % 11.0-15.0 [facility] Platelet 188 150-400 NO [place] x10(3)/[facility] MPV 8.7 fL 8.5-13.0 NO [facility] ID Date Data Source [id number] 04/23/2019 07:17:00 AM BRAD [facility] Patient Name: RADHA CRENSHAW MMRN: [id number] General DiagnosticACCESSION EXAM DATE/TIME PROCEDURE ORDERING PROVIDER [id number] 04/23/2019 07:02 EST XR Chest Portable Jessica BENAVIDES, Bonifacio Valdovinos Auth (Verified)Olivia son For Exam(XR Chest Portable) PostOp CT SurgeryReportPROCEDURE: Radiograph Port able Chest 1 ViewCLINICAL HISTORY: Chest RadiographSCRIPT INFORMATION: CXRCOMPARI SON: 04/22/2019TECHNIQUE:Anteroposterior radiographic view of the chest was perfo rmed.FINDINGS:A right sided Port-a-Cath is noted with its tip at the level of the s uperior vena cava.2 right chest tubes are present.There is atelectasis at the righ t lung base.There is no evidence for pleural effusion.There is a loculated pneumothor ax at the lateral right lung base.The heart is unremarkable.The mediastinum and kirstie r soft tissues are unremarkable.The bony thorax is unremarkable.IMPRESSION:1. The lines and tubes are in satisfactory position.2. Continued loculated pleural effusion at the lateral right lung base.Thank you for allowing us to participate in e evaluation of this patient. Final Dictated: Rivka BENAVIDES, Octaviano Sheikh 1 06/23/18 07:14Signed: Octaviano Tineo MD 04/23/19 07:17Transcribed by: BRG Name Value Range Interpretation Code Description Data Renae rce(s) Supporting Document(s ) ID Date Data Source [id number] 04/23/2019 06:32:00 AM EST [facility] Manual Diff added by Discern Rule GLB_CB C_AUTO_REFLEX Name Value Range Interpretation Description Data Sup porting Code Source(s) Document(s ) Segs 95 % 50-80 HI [facility] Band 1 % 0-2 [facility] Neutr 7.1 2.0-8.4 NO [facility] Absolute x10(3)/[facility] Lymph 1 % 14-44 LO [facility] Monocyte 3 % 0-12 NO [facility] Eos 0 % 0-7 NO [facility] Basophil 0 % 0-3 NO [facility] RBC Morph Normocyt/ NO [facility] Estimate NO [facility] ID Date Data Source [id number] 04/23/2019 05:11:00 AM EST [facility] Name Value Range Interpretation Description Data Sup porting Code Source(s) Document(s ) Glucose Lvl 166 65-99 [place] mg/dL [facility] BUN 37.0 6.0-20.0 HI [place] mg/dL [facility] Creatinine 6.34 0.40-1.0 HI [place] mg/dL 0 [facility] BUN/Creat 5.8 7.0-29.0 LO [place] Ratio ratio [facility] Sodium Lvl 133 136-145 LO van mmol/L [facility] Potassium Lvl 6.0 3.5-5.1 CR [place] mmol/L [facility] Critical Value Results Called to PANCHO Simmons by with read back at 04/23/2019 05:11:26 EST. Chloride 94 mmol/L 98-107 [facility] CO2 28 mmol/L 23-29 [facility] AGAP 11 5-15 [facility] Calcium Lvl 8.8 mg/dL 8.6-10.0 [facility] Total Protein 6.7 gm/dL 6.0-8.3 [facility] Albumin Lvl 2.6 gm/dL 3.5-5.0 [facility] Glob 4.1 gm/dL 2.0-4.5 [facility] A/G Ratio 0.6 ratio 1.0-2.2 [facility] Bili Total 0.9 mg/dL 0.3-1.2 [facility] Alk Phos 55 IU/L 38-126 NO [facility] AST 11 IU/L 15-41 [facility] ALT 9 IU/L 7-40 NO [facility] ID Date Data Source [id number] 04/23/2019 05:11:00 AM EST [facility] Added by Discern Rule GLB_ADD_GFR_CMP Name Value Range Interpretation Code Description Data Renae rce(s) Supporting Document(s ) eGFR-AA 8 >=60 [facility] mL/min/1.[address] eGFR-LORIE 7 >=60 [facility] mL/min/1.[address] ID Date Data Source [id number] 04/23/2019 04:48:00 AM [facility] Name Value Range Interpretation Description Data Sup porting Code Source(s) Document(s ) Magnesium 1.9 mg/dL 1.6-2.6 [facility] ID Date Data Source [id number] 04/23/2019 04:38:00 AM [facility] Name Value Range Interpretation Description Data Sup porting Code Source(s) Document(s ) WBC 7.4 4.0-10.5 NO [place] x10(3)/[facility] RBC 3.45 3.80-5.20 LO [place] x10(6)/[facility] Hgb 12.0 11.4-15.1 NO [place] gm/dL [facility] Hct 35.3 % 36.0-46.0 [facility] MCV 102 fL 80-98 [facility] MCH 34.7 pg 26.0-34.0 [facility] MCHC 34.0 32.0-36.0 [facility] gm/dL [facility] RDW 15.0 % 11.0-15.0 NO [facility] Platelet 165 150-400 NO [facility] x10(3)/[facility] MPV 8.4 fL 8.5-13.0 LO [facility] ID Date Data Source [id number] 06/04/2019 12:36:00 PM EST [facility] 1965 [phone] Mycobacteriology - AFB Cultures (send ou t)PROCEDURE: Culture,Mycobacteria, Skin, Stool, TissueSOURCE: Biopsy BODY SITE: Lung RightCOLLECTED DATE/SOFÍA E: 04/22/2019 17:30 EST RECEIVED DATE/TIME: 04/23/2019 03:12 ESTSTAR T DATE/TIME: 04/22/2019 21:33 EST FREE TEXT SOURCE:ORDERING PHYSICIAN: Jessica BENAVIDES, Bonifacio ValdovinosFINAL REPORTSFinal Report []Reported Date/Time: 06/05/2019 12:57 ESTMYCOBACTERIUM, MISC TBR BIOPSYFINALNo Mycobacterium species isolatedafter 6 weeks of incubation.ACID -FAST BACILLI STAIN TBRFINALNo acid-f ast bacilli seenTest performed by:[facility] [place], [place] [address]JebeusmiStephen Wan M.D.Final Report []Reported Date/Time: 06/04/2019 12:33 E STMYCOBACTERIUM, MISC TBRBIOPSYFI NALNo Mycobacterium species isolatedafter 6 weeks of incubation.ACID-FAST BACILLI ST AIN TBRPRELIMINARYNo acid-fast bacill i seenTest performed by:[facility] [place], [place] [address]Rbujbnsailaja Wan M.D.PRELIMINARY REPORTSPreliminary Report []Reported Date/Time: 05/28/2019 10:45 ESTMYCOBACTERIUM, MISC TBRBIOPSYPRELIMINARYNo Mycobacterium spe cies isolatedafter five weeks incubation.ACID-FAST BACILLI STAIN TBRPRELIMINARYNo acid-fast bacilli seenT est performed by:[facility] [place] Meng Wan M.D.Preliminary Report []Reported Date/Time: 05/21/2019 09:44 ESTMYCOBACTER IUM, MISC TBRBIOPSYPRELIMINARYNo Mycobacterium species isolatedafter four weeks incubation.ACID-FAST BACILLI STAIN TBRPRELIMINARYNo acid-fast bacilli s eenTest performed by:[facility] [place] Avinash Wan M.D.Preliminary Report []Reported Date/Time: 05/14/2019 10:04 ESTMYCOBACTE RIUM, MISC TBRBIOPSYPRELIMINARYNo Mycobacterium species isolatedafter three weeks of incubation.ACID-FAST BACILLI ST AIN TBRPRELIMINARYNo acid-fast bacill i seenTest performed by:[facility] [place] Avinash Wan M.D.Preliminary Report []Reported Date/Time: 05/07/2019 09:23 ESTMYCOBACTE RIUM, MISC TBRBIOPSYPRELIMINARYNo Mycobacterium species isolatedafter two weeks incubation.ACID-FAST BACILLI STAIN TBRPRELIMINARYNo acid-fast bacilli s eenTest performed by:[facility] [place] Avinash Wan M.D.Preliminary Report []Reported Date/Time: 04/30/2019 09:18 ESTMYCOBACTE RIUM, MISC TBRBIOPSYPRELIMINARYNo Mycobacterium species isolatedafter one week incubation.ACID-FAST BACILLI STAIN TBRPRELIMINARYNo acid-fast bacilli seenT est performed by:[facility] raza M.D.Preliminary Report []Reported Date/Time: 04/23/2019 15:38 ESTMYCOBACTER IUM, MISC PENDINGACID-FAST BACILLI STAIN TBRPRELIMINARYNo acid-fast bacilli seenTest performed by:[facility] bernsteinticsOne Garth AvenueTeterborFELI raza M.D. Name Value Range Interpretation Code Description Data Renae rce(s) Supporting Document(s ) ID Date Data Source [id number] 05/21/2019 02:42:00 PM EST [facility] 1965 [phone] Mycology - Fungal Cultures (send out)PRO CEDURE: Culture,Fungal OURCE: Pleural Cavity BODY SITE: Lung Right COLLECTED DATE/TIME: 04/22/2019 17:30 EST RECEIVED DATE/TIME: 04/23/2019 03:12 ESTSTART DATE/TIME: 04/22/2019 21:33 EST FREE TEXT SOURCE:ORDERING PHYSICIAN: Jessica BENAVIDES, Bonifacio ValdovinosFINAL REPORTSFinal Report []Reported Date/ Time: 05/21/2019 14:40 ESTCULTURE,FUNGUS,MISC TBRPLEURAL CAVITYFINALNo fungi isolated in 28 days.Test performed by:[facility] [place] Meng Wan M.D.PRELIMINA RY REPORTSPreliminary Report []Reported Date/Time: 05/07/2019 18:03 ESTCULTURE,F UNGUS,MISC TBRPLEURAL CAVITYPRELI MINARYNo growth after 14 days incubationTest performed by:StudioEXSt. Michaels Medical CenterFELI raza M.D.Preliminary Report []Reported Date/ Time: 04/30/2019 11:44 ESTCULTURE,FUNGUS,MISC TBRPLEURAL CAVITYPRELIMINARYNo fungus recovered after 7 daysincubation: culture pending.Test performed by:[facility] ra[facility] M.D. Name Value Range Interpretation Code Description Data Renae rce(s) Supporting Document(s ) ID Date Data Source [id number] 04/27/2019 09:20:00 AM EST [facility] 1965 [phone] Microbiology - Wound/Misc CulturesPROCED URE: Culture,Aerobic and Anaerobic with Gram StainSOURCE: Pleural Cavity BODY SITE: Lung RightCOLLECTED DATE/TIME: 04/22/2019 17:30 EST RECEIVED DATE/TIME: 04/22/2019 19:5 6 ESTSTART DATE/TIME: 04/22/2019 19:56 EST FREE TEXT SOURCE:ORDERING PHYSICIAN: Bonifacio Lopez MDFINAL REPORTSFinal Report []Reported Date/ Time: 04/27/2019 09:20 ESTNo growth aerobically or anaerobically in 5 days.* PRELIMINARY REPORTSPreliminary Report []Reported Date/Time: 04/24/2019 09:40 ES TNo aerobic or anaerobic growth to date Continuing incubationPreliminary Report []Reported Date/Time: 04/23/2019 10:31 ESTNo growth to date Continuing incubation STAINSGS []Reported Date/Time: 04/22/2019 20:50 ESTFew White Blood Cells No organ isms seen. Name Value Range Interpretation Code Description Data Renae rce(s) Supporting Document(s ) ID Date Data Source [id number] 04/22/2019 07:12:00 PM EST [facility] Patient Name: RADHA CRENSHAW MMRN: [id number] General DiagnosticACCESSION EXAM DATE/TIME PROCEDURE ORDERING PROVIDER [id number] 04/22/2019 19:08 EST XR Chest Portable Bonifacio Lopez MD Auth (Verified)Olivia son For Exam(XR Chest Portable) PostOp CT SurgeryReportPROCEDURE: Radiograph Port able Chest 1 ViewCLINICAL HISTORY: Post OperationSCRIPT INFORMATION: xr pcxrCOMP ARISON: 04/20/2019TECHNIQUE:Anteroposterior radiographic view of the chest was perfo rmed.FINDINGS:There is an endotracheal tube with tip 1.9 cm above the jr..There is a right chest port with catheter extending to the cavoatrial junction. 2 right-side d chest tubes in place within a loculated pneumothorax.Diffuse right lung intersti tial infiltrate noted.There is no evidence for pleural effusion.The cardiac silhoue tte is magnified.The mediastinum and hilar soft tissues are unremarkable.The bony t horax is unremarkable.IMPRESSION:Previously noted right lung base pigtail catheter h as been removed and replaced with 2 chest tubes. The loculated pneumothorax appear s less prominent than on previous x-ray. Diffuse right lung infiltrate without ch donald. Endotracheal tube in place.Thank you for allowing us to participate in the ev aluation of this patient. Final Dictated: Mari BENAVIDES, Henrry 1 06/22/18 19:09Signed: Mari BENAVIDES, Henrry 04/22/19 19:12Transcribed by: ES Name Value Range Interpretation Code Description Data Renae rce(s) Supporting Document(s ) ID Date Data Source [id number] 04/22/2019 06:39:00 AM EST [facility] Name Value Range Interpretation Description Data Sup porting Code Source(s) Document(s ) Glucose Lvl 96 mg/dL 65-99 NO [facility] BUN 28.0 6.0-20.0 [place] mg/dL [facility] Creatinine 5.64 0.40-1.0 [place] mg/dL 0 [facility] BUN/Creat 5.0 7.0-29.0 [place] Ratio ratio [facility] Sodium Lvl 135 136-145 [place] mmol/L [facility] Potassium Lvl 4.8 3.5-5.1 NO [place] mmol/L [facility] Chloride 94 98-107 [place] mmol/L [facility] CO2 31 23-29 [place] mmol/L [facility] AGAP 10 5-15 NO [place] [facility] Calcium Lvl 8.8 8.6-10.0 NO [place] mg/dL [facility] Total Protein 6.3 6.0-8.3 NO [place] gm/dL [facility] Albumin Lvl 2.5 3.5-5.0 [place] gm/dL [facility] Glob 3.8 2.0-4.5 NO [place] gm/dL [facility] A/G Ratio 0.7 1.0-2.2 LO [facility] ratio [facility] Bili Total 0.8 0.3-1.2 NO [facility] mg/dL [facility] Alk Phos 58 IU/L 38-126 [facility] AST 11 IU/L 15-41 [facility] ALT 7 IU/L 7-40 [facility] ID Date Data Source [id number] 04/22/2019 06:32:00 AM [facility] Added by Discern Rule GLB_ADD_GFR_CMP Name Value Range Interpretation Code Description Data Renae rce(s) Supporting Document(s ) eGFR-AA 9 >=60 [facility] mL/min/1.[address] eGFR-LORIE 8 >=60 [facility] mL/min/1.[address] [place] [address] ID Date Data Source [id number] 04/22/2019 06:12:00 AM [facility] Name Value Range Interpretation Code Description Data Renae rce(s) Supporting Document(s ) INR 1.1 ratio 0.9-1.2 [facility] Indications INRProphylaxis of venous thromo-embolism: Non-hip surgery..... ..........................1.5 - 2.5 Hip surgery................................. ..2.0 - 3.0Deep Vein Thrombosis or Pulmonary Embolism........2.0 - 3.0Prevention of s ystemic embolism in valvular heart disease, tissue prosthetic heart valvesor acute PA.......................................2.0 - 3.5Prevention of embolism in mechanical heartvalves or recurrent systemic embolism.............3.0 - 4.5 PT 12.6 second(s) 10.2-12.9 NO [facility] ID Date Data Source [id number] 04/22/2019 06:11:00 AM EST [facility] Name Value Range Interpretation Description Data Sup porting Code Source(s) Document(s ) Neut Auto 57.2 % 50.0-80.0 NO [facility] Lymph Auto 23.1 % 14.0-44.0 NO [facility] [place] Auto 10.8 % 0.0-12.0 NO [facility] Eos Auto 8.1 % 0.0-7.0 HI [facility] Baso Auto 0.8 % 0.0-3.0 NO [facility] Neut 3.7 2.0-8.4 NO [place] Absolute x10(3)/[facility] Lymph 1.5 0.6-4.8 NO [place] Absolute x10(3)/[facility] [place] 0.7 0.0-1.1 NO [place] Absolute x10(3)/[facility] Eos Absolute 0.5 0.0-0.5 [place] x10(3)/[facility] Baso 0.1 0.0-0.3 NO [place] Absolute x10(3)/[facility] ID Date Data Source [id number] 04/22/2019 06:11:00 AM EST [facility] Name Value Range Interpretation Description Data Sup porting Code Source(s) Document(s ) WBC 6.5 4.0-10.5 [place] x10(3)/[facility] RBC 3.21 3.80-5.20 [place] x10(6)/[facility] Hgb 11.3 11.4-15.1 [place] gm/dL [facility] Hct 32.5 % 36.0-46.0 [facility] MCV 101 fL 80-98 [facility] MCH 35.1 pg 26.0-34.0 [facility] MCHC 34.7 32.0-36.0 [place] gm/dL [facility] RDW 15.4 % 11.0-15.0 [facility] Platelet 152 150-400 NO [place] x10(3)/[facility] MPV 9.0 fL 8.5-13.0 [facility] ID Date Data Source [id number] 04/21/2019 09:05:00 AM EST [facility] Added by Discern Rule GLB_ADD_GFR_BMP Name Value Range Interpretation Code Description Data Renae rce(s) Supporting Document(s ) eGFR-AA 12 >=60 [facility] mL/min/1.[address] eGFR-LORIE 10 >=60 [facility] mL/min/1.[address] ID Date Data Source [id number] 04/21/2019 09:05:00 AM EST [facility] Name Value Range Interpretation Description Data Sup porting Code Source(s) Document(s ) Glucose Lvl 110 65-99 [place] mg/dL [facility] BUN 20.0 6.0-20.0 [place] mg/dL [facility] Creatinine 4.60 0.40-1.0 [place] mg/dL 0 [facility] BUN/Creat 4.3 7.0-29.0 [place] Ratio ratio [facility] Sodium Lvl 136 136-145 [place] mmol/L [facility] Potassium Lvl 4.5 3.5-5.1 [place] mmol/L [facility] Chloride 95 98-107 [place] mmol/L [facility] CO2 31 23-29 [place] mmol/L [facility] AGAP 10 5-15 NO [facility] Calcium Lvl 8.8 8.6-10.0 [place] mg/dL [facility] ID Date Data Source [id number] 04/21/2019 08:29:00 AM EST [facility] Name Value Range Interpretation Description Data Sup porting Code Source(s) Document(s ) Neut Auto 64.0 % 50.0-80.0 NO [facility] Lymph Auto 17.9 % 14.0-44.0 NO [facility] [place] Auto 10.7 % 0.0-12.0 NO [facility] Eos Auto 6.4 % 0.0-7.0 NO [facility] Baso Auto 1.0 % 0.0-3.0 NO [facility] Neut 4.0 2.0-8.4 NO [place] Absolute x10(3)/[facility] Lymph 1.1 0.6-4.8 NO [place] Absolute x10(3)/[facility] [place] 0.7 0.0-1.1 NO [place] Absolute x10(3)/[facility] Eos Absolute 0.4 0.0-0.5 [place] x10(3)/[facility] Baso 0.1 0.0-0.3 NO [place] Absolute x10(3)/[facility] ID Date Data Source [id number] 04/21/2019 08:29:00 AM EST [facility] IVT Name Value Range Interpretation Description Data Sup porting Code Source(s) Document(s ) WBC 6.3 4.0-10.5 NO [place] x10(3)/[facility] RBC 3.38 3.80-5.20 LO [facility] x10(6)/[facility] Hgb 11.7 11.4-15.1 NO [place] gm/dL [facility] Hct 33.9 % 36.0-46.0 [facility] MCV 100 fL 80-98 [facility] MCH 34.6 pg 26.0-34.0 [facility] MCHC 34.5 32.0-36.0 NO [place] gm/dL [facility] RDW 15.5 % 11.0-15.0 [facility] Platelet 155 150-400 [place] x10(3)/[facility] MPV 8.5 fL 8.5-13.0 NO [facility] ID Date Data Source [id number] 04/20/2019 03:33:00 PM EDT [facility] please draw with HD todayIVT Name Value Range Interpretation Code Description Data Renae rce(s) Supporting Document(s ) ABSC Gel NO [facility] ID Date Data Source [id number] 04/20/2019 03:09:00 PM EDT [facility] please draw with HD todayIVT Name Value Range Interpretation Code Description Data Renae rce(s) Supporting Document(s ) ABO/Rh UN [facility] ID Date Data Source [id number] 04/20/2019 02:06:00 PM EDT [facility] please draw with HD todayIVT Name Value Range Interpretation Code Description Data Renae rce(s) Supporting Document(s ) INR 1.2 ratio 0.9-1.2 NO [facility] Indications INRProphylaxis of venous thromo-embolism: Non-hip surgery..... ..........................1.5 - 2.5 Hip surgery................................. ..2.0 - 3.0Deep Vein Thrombosis or Pulmonary Embolism........2.0 - 3.0Prevention of s ystemic embolism in valvular heart disease, tissue prosthetic heart valvesor acute PA.......................................2.0 - 3.5Prevention of embolism in mechanical heartvalves or recurrent systemic embolism.............3.0 - 4.5 PT 13.4 second(s) 10.2-12.9 [facility] ID Date Data Source [id number] 04/20/2019 07:58:00 AM EDT [facility] Patient Name: RADHA CRENSHAW MMRN: [id number] General DiagnosticACCESSION EXAM DATE/TIME PROCEDURE ORDERING PROVIDER [id number] 04/20/2019 07:16 EDT XR Chest Portable Travis ERICKSON, Auth (Verified) KhalidReason For Exam(XR C hest Portable) Chest Tube PlacementReportPROCEDURE: Radiograph Po rtable Chest 1 ViewCLINICAL HISTORY: Fluid in LungSCRIPT INFORMATION: fluid in lung COMPARISON: Chest x-ray 04/19/2019.TECHNIQUE:Anteroposterior radi ographic view of the chest was performed.FINDINGS:A right sided Port-a- Cath is noted with its tip at the level of the superior vena cava. There is a stabl e pigtail pleural chest catheter directed over the right lower lobe.There is stabl e opacification of the right base. The remaining lungs are clear.There is a sta ble loculated hydropneumothorax at the right base.The cardiac size and contours are u nchanged.The mediastinum and hilar soft tissues are unremarkable.The bony thorax is unremarkable.IMPRESSION:Stable right base opacification and loculated hydropneumot horax.Thank you for allowing us to participate in the evaluation of this pa tient. Final Dictated: Corbin Thomas MD04/20/19 07:56Signed: Corbin Balderas MD 04/20/19 07:58Transcribed by: BDS Name Value Range Interpretation Code Description Data Renae rce(s) Supporting Document(s ) ID Date Data Source [id number] 04/20/2019 07:35:00 AM EDT [place] [facility] Name Value Range Interpretation Description Data Sup porting Code Source(s) Document(s ) Glucose Lvl 92 mg/dL 65-99 NO [place] [facility] BUN 20.0 6.0-20.0 NO [place] mg/dL [facility] Creatinine 4.70 0.40-1.0 [place] mg/dL 0 [facility] BUN/Creat 4.3 7.0-29.0 LO [place] Ratio ratio [facility] Sodium Lvl 137 136-145 NO [place] mmol/L [facility] Potassium Lvl 4.0 3.5-5.1 NO [place] mmol/L [facility] Chloride 97 98-107 LO [place] mmol/L [facility] CO2 32 23-29 [place] mmol/L [facility] AGAP 8 5-15 NO [place] [facility] Calcium Lvl 8.4 8.6-10.0 LO [place] mg/dL [facility] Total Protein 6.3 6.0-8.3 NO [place] gm/dL [facility] Albumin Lvl 2.4 3.5-5.0 LO [place] gm/dL [facility] Glob 3.9 2.0-4.5 NO [place] gm/dL [facility] A/G Ratio 0.6 1.0-2.2 LO [facility] ratio [facility] Bili Total 0.8 0.3-1.2 NO [place] mg/dL [facility] Alk Phos 57 IU/L 38-126 NO [facility] AST 9 IU/L 15-41 LO [facility] ALT 8 IU/L 7-40 NO [facility] ID Date Data Source [id number] 04/20/2019 07:31:00 AM EDT [facility] Added by Discern Rule GLB_ADD_GFR_CMP Name Value Range Interpretation Code Description Data Renae rce(s) Supporting Document(s ) eGFR-AA 12 >=60 LO [facility] mL/min/1.[address] eGFR-LORIE 10 >=60 LO [facility] mL/min/1.[address] [place] [address] ID Date Data Source [id number] 04/20/2019 06:42:00 AM EDT [facility] Name Value Range Interpretation Description Data Sup porting Code Source(s) Document(s ) Neut Auto 64.0 % 50.0-80.0 NO [facility] Lymph Auto 20.2 % 14.0-44.0 NO [facility] [place] Auto 11.5 % 0.0-12.0 [facility] Eos Auto 3.8 % 0.0-7.0 [facility] Baso Auto 0.5 % 0.0-3.0 NO [facility] Neut 4.4 2.0-8.4 NO [place] Absolute x10(3)/[facility] Lymph 1.4 0.6-4.8 NO [place] Absolute x10(3)/[facility] [place] 0.8 0.0-1.1 NO [place] Absolute x10(3)/[facility] Eos Absolute 0.3 0.0-0.5 NO [place] x10(3)/[facility] Baso 0.0 0.0-0.3 NO [place] Absolute x10(3)/[facility] ID Date Data Source [id number] 04/20/2019 06:42:00 AM EDT [facility] Name Value Range Interpretation Description Data Sup porting Code Source(s) Document(s ) WBC 6.9 4.0-10.5 NO [place] x10(3)/[facility] RBC 3.33 3.80-5.20 LO [place] x10(6)/[facility] Hgb 11.5 11.4-15.1 NO [place] gm/dL [facility] Hct 33.9 % 36.0-46.0 [facility] MCV 102 fL 80-98 [facility] MCH 34.4 pg 26.0-34.0 [facility] MCHC 33.8 32.0-36.0 NO [place] gm/dL [facility] RDW 15.4 % 11.0-15.0 [facility] Platelet 143 150-400 LO [place] x10(3)/[facility] MPV 8.8 fL 8.5-13.0 NO [facility] ID Date Data Source [id number] 04/24/2019 08:48:00 AM EST [facility] 1965 [phone] Microbiology - Wound/Misc CulturesPROCED URE: Culture,Body Fluid with Gram StainSOURCE: Pleural Fl PATTI DY SITE: Lung RightCOLLECTED DATE/TIME: 04/19/2019 11:00 EDT RECEIVED DATE/TIME: 04/19/2019 12:50 EDTSTART DATE/TIME: 04/19/2019 1 2:50 EDT FREE TEXT SOURCE:ORDERING PHYSICIAN: Jessica BENAVIDES, Bonifacio ValdovinosFIN AL REPORTSFinal Report []Reported Date/Time: 04/24/2019 08:48 ESTNo growth aerobically or anaerobically in 5 days.PRELIMINARY REPORTSPreliminar y Report []Reported Date/Time: 04/23/2019 09:09 ESTNo growth aerobically or anaero bically in 4 days. Continuing incubationPreliminary Report []Reported Date/Time: 04/22/2019 11:40 ESTNo growth aerobically or anaerobically in 3 days. Continuing incubationPreliminary Report []Reported Date/Time: 04/21/2019 07:51 ES TNo growth aerobically or anaerobically in 2 days. Continuing incubationPreliminary Report []Reported Date/Time: 04/20/2019 07:25 EDTNo growth to date Continuing incubat ionSTAINSGS []Reported Date/Time: 04/19/2019 15:57 EDTNo organisms seen. R are White Blood Cells Name Value Range Interpretation Code Description Data Renae rce(s) Supporting Document(s ) ID Date Data Source [id number] 04/19/2019 01:05:00 PM EDT [facility] Name Value Range Interpretation Code Description Data Renae rce(s) Supporting Document(s ) pH BF NO [facility] The reference range and other method per formance specifications have not been established for this body fluid. The feliciano t result must be integrated into the clinical context for interpretation. pH. BF Type NA [facility] ID Date Data Source [id number] 04/19/2019 12:43:00 PM EDT [facility] Name Value Range Interpretation Description Data Sup porting Code Source(s) Document(s ) Color BF 1 NO [facility] Appear BF 1 Clear AB [facility] WBC BF 1 296 0-200 [facility] RBC BF 1 65881 0-200 [facility] cells/[facility] BF Type Tube 1 NA [facility] BF Laterality NA [facility] ID Date Data Source [id number] 04/19/2019 12:35:00 PM EDT [facility] Name Value Range Interpretation Code Description Data Renae rce(s) Supporting Document(s ) LDH BF 197 IU/L NA [facility] A specific reference range is not availa ble for this analyte. The following information is provided to aid in interp retation of results. Correlation with clinical findings is recommended.Pleural fluidAccording to the traditional Light's Criteria Rule, if at least one of the fo [facility] three criteria (ie, component tests of the rule) is fulfilled, the fluid is defined as an exudate: Pleural fluid protein/serum protein ratio greater than 0.5, or Pleural fluid LDH/serum LDH ratio greater than 0.6, or Pleural fluid LD H greater than 126 IU/L (two-thirds the upper limit of the laboratory's normal serum L DH) Alternatively, a serum: pleural fluid albumin gradient of > 1.2 g/dl is sugges tive of a transudate.Reference: http://www.[employer].com/contents/pjjhiiaphp-fmttdnudsq-oq-f-qebpxyq-jpthhlsj-in- adult r-kqbbccg-zzjfgqsNvdqrtshdn fluidThe asc itic fluid/serum (AF/S) ratio of LDH is approximately 0.4 in uncomplicated ascit es due to cirrhosis. If the LDH ratio is more than 1.0, LDH is being produced in or re leased into the peritoneal cavity, usually because of infection, bowel perforation, or tumor. Patients with ascitic fluid that has a corrected neutrophil count ?250 ce lls/mm3 and meets two out of the following three criteria are unlikely to have SBP and warrant immediate evaluation to determine if bowel perforation into ascites has oc curred: Total protein >1 g/dL Glucose <50 mg/dL (2.8 mmol/L) LDH greater th an the upper limit of normal for serumReference: http://www.[employer]/contents/evaluat jxo-kr-tmxgaf-with-ascitesPericardial FluidGeneral chemistry tests have not be en standardized for pericardial fluid analysis. Thus, reference ranges/ clinic al cutoff values have not been established. Results should be correlated clinically. LDH. BF Type NA [facility] BF Laterality [facility] ID Date Data Source [id number] 04/19/2019 12:31:00 PM EDT [facility] Name Value Range Interpretation Description Data Sup porting Code Source(s) Document(s ) Protein BF 3.3 gm/dL [facility] A specific reference range is not availa ble for this analyte. The following information is provided to aid in interp retation of results. Correlation with clinical findings is recommended.Pleural fluidAccording to the traditional Light's Criteria Rule, if at least one of the fo [place] three criteria (ie, component tests of the rule) is fulfilled, the fluid is defined as an exudate: Pleural fluid protein/serum protein ratio greater than 0.5, or Pleural fluid LDH/serum LDH ratio greater than 0.6, or Pleural fluid LD H greater than 126 IU/L (two-thirds the upper limit of the laboratory's normal serum L DH) Alternatively, a serum: pleural fluid albumin gradient of > 1.2 g/dl is sugges tive of a transudate.Reference: http://www.[employer]/contents/tjpjbolfyl-uvspwcumqc-qc-r-lpesqut-iltrddic-in- adult f-izsbyxr-tkogdmxWgqvoqpqzw fluidAscitic fluid can be classified as an exudate if the total protein concentration is ?2.5 or 3 g/dL and a transudate if it is below this cutoff. However, the exudate/transudate system of ascitic fluid classification has been replaced by the SAAG, which is a mo re useful measure for determining whether portal hypertension is present.Patients with ascitic fluid that has a corrected neutrophil count ?250 cells/mm3 and meet s two out of the following three criteria are unlikely to have SBP and warrant immedia te evaluation to determine if bowel perforation into ascites has occurred: Total protein >1 g/dL Glucose <50 mg/dL (2.8 mmol/L) LDH greater than the [facility] er limit of normal for serumReference: http://www.[employer]/contents/evaluat ugf-sj-aoqesf-with-ascitesPericardial FluidGeneral chemistry tests have not be en standardized for pericardial fluid analysis. Thus, reference ranges/ clinic al cutoff values have not been established. Results should be correlated clinically. Protein BF Type NA [facility] BF Laterality NA [facility] ID Date Data Source [id number] 04/19/2019 12:31:00 PM EDT [facility] Name Value Range Interpretation Code Description Data Supporting Source(s) Document(s ) Glucose BF 52 mg/dL [facility] A specific reference range is not availa ble for this analyte. The following information is provided to aid in interpretation of results. Correlation w ith clinical findings is recommended.Pleural fluidA low pleural fluid glucose concentration (less than 60 mg/d L [3.33 mmol/liter], or a pleural fluid/serum glucose ratio less than 0.5) narrows the differential diagnosis of the exudate to the following possibilities: Rheumatoid pleurisy Complicated parapneumonic ef fusion or empyema Malignant effusion Tuberculous pleurisy Lupus pleuritis Esophageal ruptureAll transudates and all other exudates have pleural fluid glucose concentration similar to that of blood g lucose.Reference: http://www.[employer]/contents/gkciyomvpk-ekrlvjqdea-cj-j-gbpqngo-fwfqaupg-in- axceqf-nmfishx-ogkhwlaOpcrimqb al fluid The ascitic fluid glucose mannie ntration is similar to that in serum. Low concentrations of glucose could represent: bacterial infection (se e below), malignant ascites, or bowel perforation. Patients with ascitic fluid that has a corrected neutr ophil count ?250 cells/mm3 and meets two out of the following three criteria are unlikely to have SBP and wa rrant immediate evaluation to determine if bowel perforation into ascites has occurred: Total protein > 1 g/dL Glucose <50 mg/dL (2.8 mmol/L) LDH greater than the upper limit of normal for serumReference: http://www.[employer] [place]/contents/evaluat zns-es-kffdez-with-ascitesPericardial FluidGeneral chemistry tests have not been standardized for pericardi al fluid analysis. Thus, reference ranges/ clinical cutoff values have not been established. Results should be correlated clinically. Glucose BF Type NA [facility] BF Laterality NA [facility] ID Date Data Source [id number] 04/19/2019 08:11:00 AM EDT [facility] Added by Discern Rule GLB_ADD_GFR_BMP Name Value Range Interpretation Code Description Data Renae rce(s) Supporting Document(s ) eGFR-AA 9 >=60 LO [facility] mL/min/1.[address] eGFR-LORIE 7 >=60 LO [facility] mL/min/1.[address] ID Date Data Source [id number] 04/19/2019 08:11:00 AM EDT [facility] Name Value Range Interpretation Description Data Sup porting Code Source(s) Document(s ) Glucose Lvl 89 mg/dL 65-99 NO [facility] BUN 27.0 6.0-20.0 HI [place] mg/dL [facility] Creatinine 5.92 0.40-1.0 HI [place] mg/dL 0 [facility] BUN/Creat 4.6 7.0-29.0 LO [place] Ratio ratio [facility] Sodium Lvl 135 136-145 LO [place] mmol/L [facility] Potassium Lvl 4.4 3.5-5.1 NO [place] mmol/L [facility] Chloride 94 98-107 LO [place] mmol/L [facility] CO2 31 23-29 [place] mmol/L [facility] AGAP 10 5-15 NO [facility] Calcium Lvl 8.3 8.6-10.0 LO [place] mg/dL [facility] ID Date Data Source [id number] 04/19/2019 07:55:00 AM EDT [facility] Name Value Range Interpretation Description Data Sup porting Code Source(s) Document(s ) Neut Auto 70.3 % 50.0-80.0 NO [facility] Lymph Auto 13.0 % 14.0-44.0 LO [facility] [place] Auto 10.0 % 0.0-12.0 NO [facility] Eos Auto 5.3 % 0.0-7.0 NO [facility] Baso Auto 1.4 % 0.0-3.0 NO [facility] Neut 5.4 2.0-8.4 NO [place] Absolute x10(3)/[facility] Lymph 1.0 0.6-4.8 NO [place] Absolute x10(3)/[facility] [place] 0.8 0.0-1.1 NO [place] Absolute x10(3)/[facility] Eos Absolute 0.4 0.0-0.5 NO [place] x10(3)/[facility] Baso 0.1 0.0-0.3 NO [place] Absolute x10(3)/[facility] ID Date Data Source [id number] 04/19/2019 07:55:00 AM EDT [facility] Name Value Range Interpretation Description Data Sup porting Code Source(s) Document(s ) WBC 7.7 4.0-10.5 NO [place] x10(3)/[facility] RBC 3.52 3.80-5.20 LO [place] x10(6)/[facility] Hgb 12.0 11.4-15.1 NO [place] gm/dL [facility] Hct 36.0 % 36.0-46.0 NO [facility] MCV 102 fL 80-98 [facility] MCH 34.0 pg 26.0-34.0 NO [facility] MCHC 33.2 32.0-36.0 NO [place] gm/dL [facility] RDW 15.6 % 11.0-15.0 [facility] Platelet 160 150-400 NO [place] x10(3)/[facility] MPV 8.1 fL 8.5-13.0 [facility] ID Date Data Source [id number] 04/19/2019 07:26:00 AM EDT [facility] Patient Name: RADHA CRENSHAW MMRN: [id number] General DiagnosticACCESSION EXAM DATE/TIME PROCEDURE ORDERING PROVIDER [id number] 04/19/2019 07:08 EDT XR Chest Portable Jessica BENAVIDES, Bonifacio Valdovinos Auth (Verified)Olivia son For Exam(XR Chest Portable) Pleural EffusionReportPROCEDURE: Radiograph Por table Chest 1 ViewCLINICAL HISTORY: Chest RadiographSCRIPT INFORMATION: CXRCOMPARI SON: Chest x-ray 04/18/2019.TECHNIQUE:Anteroposterior rad iographic view of the chest was performed.FINDINGS:A right sided Port-a- Cath is noted with its tip at the level of the superior vena cava. There is a stabl e right-sided pigtail chest tube.There are stable right base opacification. The rem aining lungs are clear.There is a stable loculated right-sided pleural effusion.T here is rounded radiolucency projected over the right lung base likely loculated pne umothorax.The cardiac size and contours are unchanged.The mediastinum and left hilum are unremarkable. The right hilum is obscured.The bony thorax is unremarkable .IMPRESSION:Stable right basilar opacification with loculated hydropneumo thorax.Thank you for allowing us to participate in the evaluation of this pa tient. Final Dictated: Corbin Thomas MD04/19/19 07:24Signed: Corbin Balderas MD 04/19/19 07:26Transcribed by: BDS Name Value Range Interpretation Code Description Data Renae rce(s) Supporting Document(s ) ID Date Data Source [id number] 04/18/2019 05:50:00 PM EDT [facility] Patient Name: RADHA CRENSHAW MMRN: [id number] General DiagnosticACCESSION EXAM DATE/TIME PROCEDURE ORDERING PROVIDER [id number] 04/18/2019 17:47 XR Chest Portable Reilly Yip MD (Verified) EDTReason For Exam(XR Chest Portable) Post-OperativeReportPROCEDURE: Radiograph Portable Chest 1 ViewCLINICAL HISTORY: Chest TubeSCRIPT INFORMATION: xr chest portableCOMPARISON: 04/17/2019TECHNIQUE:Anteroposterior radi ographic view of the chest was performed.FINDINGS:Interval placement of right pleural pigtail drain. Significant decrease of right pleural effusion. Ther e is a small residual loculated right pleural effusion. No pneumothorax.Right infusion port tip over superior cavoatrial junction.The left lung is clear without pleural effusion.The cardiac silhouette is exaggerated.Right subclavian vascular st ent.Small calcification over the left rotator cuff tendon suggesting calcific tendinit is.IMPRESSION:Interval placement of right pleural pigtail drain. Significant decre ase of right pleural effusion. There is a small residual loculated right pleural e ffusion. No pneumothorax.Thank you for allowing us to participate in the evalua tion of this patient. Final Dictated: Dorothy Houston MD 1 17:48Signed: Dorothy Houston MD 04/18/19 17:50Transcribed by: YZ Name Value Range Interpretation Code Description Data Renae rce(s) Supporting Document(s ) ID Date Data Source [id number] 04/18/2019 06:23:00 AM EDT [facility] Name Value Range Interpretation Description Data Sup porting Code Source(s) Document(s ) Glucose Lvl 78 mg/dL 65-99 NO [facility] BUN 19.0 6.0-20.0 NO [place] mg/dL [facility] Creatinine 4.61 0.40-1.0 [place] mg/dL 0 [facility] BUN/Creat 4.1 7.0-29.0 LO [place] Ratio ratio [facility] Sodium Lvl 136 136-145 NO [place] mmol/L [facility] Potassium Lvl 3.4 3.5-5.1 LO [place] mmol/L [facility] Chloride 94 98-107 LO [place] mmol/L [facility] CO2 33 23-29 [place] mmol/L [facility] AGAP 10 5-15 NO [facility] Calcium Lvl 8.1 8.6-10.0 LO [place] mg/dL [facility] Total Protein 6.5 6.0-8.3 NO [place] gm/dL [facility] Albumin Lvl 2.6 3.5-5.0 LO [place] gm/dL [facility] Glob 3.9 2.0-4.5 NO [place] gm/dL [facility] A/G Ratio 0.7 1.0-2.2 [place] ratio [facility] Bili Total 0.8 0.3-1.2 NO [place] mg/dL [facility] Alk Phos 56 IU/L 38-126 NO [facility] AST 12 IU/L 15-41 LO [facility] ALT 8 IU/L 7-40 NO [facility] ID Date Data Source [id number] 04/18/2019 05:55:00 AM EDT [facility] Name Value Range Interpretation Description Data Sup porting Code Source(s) Document(s ) Neut Auto 62.6 % 50.0-80.0 NO [facility] Lymph Auto 16.6 % 14.0-44.0 NO [facility] [place] Auto 12.0 % 0.0-12.0 NO [facility] Eos Auto 8.1 % 0.0-7.0 HI [facility] Baso Auto 0.7 % 0.0-3.0 NO [facility] Neut 4.1 2.0-8.4 NO [place] Absolute x10(3)/[facility] Lymph 1.1 0.6-4.8 NO [place] Absolute x10(3)/[facility] [place] 0.8 0.0-1.1 NO [place] Absolute x10(3)/[facility] Eos Absolute 0.5 0.0-0.5 NO [place] x10(3)/[facility] Baso 0.0 0.0-0.3 NO [place] Absolute x10(3)/[facility] ID Date Data Source [id number] 04/18/2019 05:55:00 AM EDT [facility] Name Value Range Interpretation Description Data Sup porting Code Source(s) Document(s ) WBC 6.6 4.0-10.5 NO [place] x10(3)/[facility] RBC 3.23 3.80-5.20 [place] x10(6)/[facility] Hgb 11.2 11.4-15.1 [place] gm/dL [facility] Hct 32.9 % 36.0-46.0 [facility] MCV 102 fL 80-98 [facility] [facility] MCH 34.9 pg 26.0-34.0 [facility] MCHC 34.2 32.0-36.0 [place] gm/dL [facility] RDW 15.3 % 11.0-15.0 [facility] Platelet 145 150-400 LO [facility] x10(3)/[facility] MPV 8.2 fL 8.5-13.0 [facility] ID Date Data Source [id number] 04/18/2019 06:19:00 AM EDT [facility] Added by Discern Rule GLB_ADD_GFR_CMP Name Value Range Interpretation Code Description Data Renae rce(s) Supporting Document(s ) eGFR-AA 12 >=60 LO [facility] mL/min/1.[address] eGFR-LORIE 10 >=60 LO [facility] mL/min/1.[address] ID Date Data Source [id number] 04/18/2019 03:55:00 PM EDT [facility] Patient Name: RADHA CRENSHAW MMRN: [id number] Computed TomographyACCESSION EXAM DATE/TIME PROCEDURE ORDERING PROVIDER [id number] 04/18/2019 15:18 CT Chest Tube Jessica BENAVIDES, Bonifacio Valdovinos Auth (Verified) EDT InsertReason For Exam(CT Chest Tube Inse rt) Other (Add Reason to Special Instructions)ReportPROCEDURE: Computed t omography guided right chest tube placement.CLINICAL HISTORY: 53-year-old female with recurrent right-sided pleural effusion.COMPARISON: CTA chest 04/06/20 19.TECHNIQUE:The risks, benefits and alternatives to the procedure were discu ssed with the patient, and questions and concerns were addressed. Informed and wr itten consent was obtained and placed in the patient's chart. An appropriate time out for patient, site and procedural verification was performed.The patient w as placed supine on the CT examination table and connected to physiologic monitoring. Monitored anesthesia care was provided by the anesthesiologist.CT images of the lo wer chest were obtained with a radiopaque localizing grid in place and the patient 's right pleural effusion was targeted. The right axillary region was prepped and dr aped in the usual sterile fashion. All elements of maximal sterile barrier tech nique including cap, mask, sterile gowns, sterile gloves, a large sterile sheet, m eticulous hand hygiene, and 2% chlorhexidine were used for cutaneous antisepsis.1% li docaine was used for local anesthesia and a small dermatotomy was made with an 11-bl aaron scalpel.Under CT guidance, a 5 [place] Yueh catheter/needle was advanced into t he patient's right pleural effusion using a right anterolateral approach. The inner needle was removed and the Yueh catheter was exchanged over an Amplatz wire for an 8 [place]ar[place]uan dilator. The tract was serially dilated to 12 [place] with additional dil ators. A 12 [place]ar[place]uan dilator was exchanged over the Amplatz wire for a 12 [place] pigtail drainage catheter. The loop of the pigtail drainage catheter was formed within the patient's right pleural effusion.A total of 1200 cc of serosanguineous fluid was man ually aspirated. The pigtail drainage catheter was secured to the patient's sk in with a 2-0 Ethilon suture and connected to a Pleur-evac. A Xeroform dressing was ap plied applied.Postprocedure CT images demonstrated good positioning of the pat ient's pigtail drainage catheter within the right pleural space with significant dec rease in size of patient's right pleural effusion. Air is seen within the right p leural space.The patient tolerated the procedure well and was transferred to [facility] recovery area in stable condition.IMPRESSION:Successful computed tomography guided right chest tube placement with drainage of 1200 cc of serosanguine ous pleural fluid.Post procedure images demonstrate air within the right pleural cavity and significant decrease in size of patient's right pleural effusion. Findin gs may represent a trapped right lung. Continued follow-up with serial chest x- rays are advised.Wet reading communicated via [email or web address] (with confirmation of receipt) to Bonifacio Lopez MD on 04/18/2019 at 3:54 PM.Thank you for allowing us to particip ate in the evaluation of this patient. Final Dictated: Theodora BENAVIDES, Reilly 04/18/19 15:41Signed: Theodora BENAVIDES, Reilly 04/18/19 15:55Transcribed by: VL Name Value Range Interpretation Code Description Data Renae rce(s) Supporting Document(s ) ID Date Data Source [id number] 04/17/2019 02:02:00 PM EDT [facility] Name Value Range Interpretation Code Description Data Renae rce(s) Supporting Document(s ) ABSC Gel NO [facility] ID Date Data Source [id number] 04/17/2019 01:43:00 PM EDT [facility] Name Value Range Interpretation Description Data Sup porting Code Source(s) Document(s ) Glucose Lvl 104 65-99 [place] mg/dL [facility] BUN 14.0 6.0-20.0 [place] mg/dL [facility] Creatinine 3.76 0.40-1.0 [place] mg/dL 0 [facility] BUN/Creat 3.7 7.0-29.0 [place] Ratio ratio [facility] Sodium Lvl 136 136-145 [place] mmol/L [facility] Potassium Lvl 3.3 3.5-5.1 [place] mmol/L [facility] Chloride 93 98-107 [place] mmol/L [facility] CO2 30 23-29 [place] mmol/L [facility] AGAP 12 5-15 [place] [facility] Calcium Lvl 8.0 8.6-10.0 [place] mg/dL [facility] Total Protein 7.3 6.0-8.3 [place] gm/dL [facility] Albumin Lvl 3.0 3.5-5.0 [facility] Glob 4.3 2.0-4.5 [place] g[place]dL [facility] A/G Ratio 0.7 1.0-2.2 [place] ratio [facility] Bili Total 1.1 0.3-1.2 NO [facility] mg/dL [facility] Alk Phos 67 IU/L 38-126 NO [facility] AST 14 IU/L 15-41 LO [facility] ALT 9 IU/L 7-40 NO [facility] ID Date Data Source [id number] 04/17/2019 01:37:00 PM EDT [facility] Added by Discern Rule GLB_ADD_GFR_CMP Name Value Range Interpretation Code Description Data Renae rce(s) Supporting Document(s ) eGFR-AA 15 >=60 LO [facility] mL/min/1.[address] eGFR-LORIE 12 >=60 LO [facility] mL/min/1.[address] ID Date Data Source [id number] 04/17/2019 01:35:00 PM EDT [facility] Name Value Range Interpretation Code Description Data Renae rce(s) Supporting Document(s ) ABO/Rh UN [facility] ID Date Data Source [id number] 04/17/2019 01:33:00 PM EDT [facility] Name Value Range Interpretation Code Description Data Renae rce(s) Supporting Document(s ) INR 1.2 ratio 0.9-1.2 [facility] Indications INRProphylaxis of venous thromo-embolism: Non-hip surgery..... ..........................1.5 - 2.5 Hip surgery................................. ..2.0 - 3.0Deep Vein Thrombosis or Pulmonary Embolism........2.0 - 3.0Prevention of s ystemic embolism in valvular heart disease, tissue prosthetic heart valvesor acute PA.......................................2.0 - 3.5Prevention of embolism in mechanical heartvalves or recurrent systemic embolism.............3.0 - 4.5 PT 14.0 second(s) 10.2-12.9 [facility] ID Date Data Source [id number] 04/17/2019 01:22:00 PM EDT [facility] Name Value Range Interpretation Description Data Sup porting Code Source(s) Document(s ) Neut Auto 76.2 % 50.0-80.0 NO [facility] Lymph Auto 9.3 % 14.0-44.0 LO [facility] [place] Auto 9.0 % 0.0-12.0 [facility] Eos Auto 5.0 % 0.0-7.0 [facility] Baso Auto 0.5 % 0.0-3.0 [facility] Neut 7.3 2.0-8.4 NO [place] Absolute x10(3)/[facility] Lymph 0.9 0.6-4.8 NO [place] Absolute x10(3)/[facility] [place] 0.9 0.0-1.1 NO [place] Absolute x10(3)/[facility] Eos Absolute 0.5 0.0-0.5 [place] x10(3)/[facility] Baso 0.1 0.0-0.3 NO [place] Absolute x10(3)/[facility] ID Date Data Source [id number] 04/17/2019 01:22:00 PM EDT [facility] Pt has PANCHO pruitt Draw04/17/2019 13:06:50 EDT MM/AL Name Value Range Interpretation Description Data Sup porting Code Source(s) Document(s ) WBC 9.6 4.0-10.5 [place] x10(3)/[facility] RBC 3.56 3.80-5.20 [place] x10(6)/[facility] Hgb 12.2 11.4-15.1 [place] gm/dL [facility] Hct 35.8 % 36.0-46.0 [facility] MCV 101 fL 80-98 [facility] MCH 34.2 pg 26.0-34.0 [facility] MCHC 34.0 32.0-36.0 [place] gm/dL [facility] RDW 15.2 % 11.0-15.0 [facility] Platelet 163 150-400 NO [place] x10(3)/[facility] MPV 7.9 fL 8.5-13.0 [facility] ID Date Data Source [id number] 04/17/2019 02:14:00 PM EDT [facility] Patient Name: RADHA RCENSHAW MMRN: [id number] General DiagnosticACCESSION EXAM DATE/TIME PROCEDURE ORDERING PROVIDER [id number] 04/17/2019 13:57 XR Chest 2 Views Mikie BENAVIDES, Auth (Verified) EDT [place]one For Exam (XR Chest 2 Views) Dyspnea SOBReportPROCEDURE: Radiograph Chest 2 ViewsCLINICAL HISTORY: Shortness of BreathSCRIPT INFORMATION: sobCOMPARISON: chest xray 04/16/2019TECHNIQUE:Anteroposterior and lateral radiographic views of the chest were performed.FINDINGS:Right chest port.Larg e right pleural effusion with right basilar consolidation. Otherwise the lungs are c lear.There is no evidence for pneumothorax.The heart is unremarkable.T he mediastinum and hilar soft tissues are unremarkable.The bony thorax is unremark able.IMPRESSION:Stable large right pleural effusion and right basilar consolidation as on 04/16/2019.Thank you for allowing us to participate in the evaluation of this patient. Final Dictated: Juan Yen MD 04/17/19 14:11Signed: Juan Lind MD 04/17/19 14:14Transcribed by: ADM Name Value Range Interpretation Code Description Data Renae rce(s) Supporting Document(s ) ID Date Data Source [id number] 04/16/2019 12:11:00 PM EDT [facility] Patient Name: RADHA CRENSHAW MMRN: [id number] General DiagnosticACCESSION EXAM DATE/TIME PROCEDURE ORDERING PROVIDER [id number] 04/16/2019 09:49 XR Chest 2 Views Jessica BENAVIDES, Bonifacio Kwon (Verified) EDTReportPROCEDURE: Radiograph Chest 2 ViewsCLINICAL HISTORY : Follow Up Right Pleural EffusionSCRIPT INFORMATION: pleural effusionCOMPARISON: CT chest dated 04/06/2019. Chest x-ray dated 04/05/2019.TECHNIQUE:Posteroanteri or and lateral radiographic views of the chest were performed.FINDINGS:A right si ded internal jugular port is noted with its tip at the level of the superior vena ca va.Redemonstrated is a stable moderate to large loculated right effusion, obscurin g the right mid and lower lung.The left lung is relatively clear.There is no evidence for pneumothorax.The heart is unremarkable.The mediastinum and hilar s oft tissues are unremarkable.The bony thorax is unremarkable.IMPRESSION:Moderate to l arge loculated right effusion obscuring the right lower lung, unchanged.Thank you fo r allowing us to participate in the evaluation of this patient. Final * Dictated: Karen Luciano MD 04/16/19 12:09Signed: Karen Luciano MD 04/16/19 12:11Transcribed by: [facility] [place] Value Range Interpretation Code Description Data Renae rce(s) Supporting Document(s ) ID Date Data Source [id number] 04/07/2019 07:04:00 AM EDT [facility] Name Value Range Interpretation Description Data Sup porting Code Source(s) Document(s ) Neut Auto 64.2 % 50.0-80.0 NO [facility] Lymph Auto 18.9 % 14.0-44.0 NO [facility] [place] Auto 10.3 % 0.0-12.0 NO [facility] Eos Auto 6.2 % 0.0-7.0 NO [facility] Baso Auto 0.4 % 0.0-3.0 NO [facility] Neut 4.1 2.0-8.4 NO [place] Absolute x10(3)/[facility] Lymph 1.2 0.6-4.8 NO [place] Absolute x10(3)/[facility] [place] 0.7 0.0-1.1 NO [place] Absolute x10(3)/[facility] Eos Absolute 0.4 0.0-0.5 [place] x10(3)/[facility] Baso 0.0 0.0-0.3 NO [place] Absolute x10(3)/[facility] ID Date Data Source [id number] 04/07/2019 07:04:00 AM EDT [facility] Name Value Range Interpretation Description Data Sup porting Code Source(s) Document(s ) WBC 6.4 4.0-10.5 [place] x10(3)/[facility] RBC 3.53 3.80-5.20 [place] x10(6)/[facility] Hgb 12.1 11.4-15.1 [place] gm/dL [facility] Hct 36.4 % 36.0-46.0 NO [facility] MCV 103 fL 80-98 [facility] MCH 34.4 pg 26.0-34.0 HI [facility] MCHC 33.4 32.0-36.0 [place] gm/dL [facility] RDW 15.1 % 11.0-15.0 [facility] Platelet 144 150-400 [place] x10(3)/[facility] MPV 8.3 fL 8.5-13.0 [facility] ID Date Data Source [id number] 04/07/2019 06:59:00 AM EDT [facility] Added by Discern Rule GLB_ADD_GFR_BMP Name Value Range Interpretation Code Description Data Renae rce(s) Supporting Document(s ) eGFR-AA 8 >=60 LO [facility] mL/min/1.[address] eGFR-LORIE 7 >=60 LO [facility] mL/min/1.[address] ID Date Data Source [id number] 04/07/2019 06:59:00 AM EDT [facility] Name Value Range Interpretation Description Data Sup porting Code Source(s) Document(s ) Glucose Lvl 142 65-99 [place] mg/dL [facility] BUN 49.0 6.0-20.0 [place] mg/dL [facility] Creatinine 6.45 0.40-1.0 [place] mg/dL 0 [facility] BUN/Creat 7.6 7.0-29.0 [place] Ratio ratio [facility] Sodium Lvl 136 136-145 [place] mmol/L [facility] Potassium Lvl 4.3 3.5-5.1 [place] mmol/L [facility] Chloride 96 98-107 [place] mmol/L [facility] CO2 30 23-29 [place] mmol/L [facility] AGAP 10 5-15 [place] [facility] Calcium Lvl 8.2 8.6-10.0 [place] mg/dL [facility] ID Date Data Source [id number] 04/06/2019 06:45:00 AM EDT [facility] Name Value Range Interpretation Description Data Sup porting Code Source(s) Document(s ) Vanco 19.3 5.0-40.0 [place] mcg/mL [facility] ID Date Data Source [id number] 04/06/2019 06:33:00 AM EDT [facility] Name Value Range Interpretation Description Data Sup porting Code Source(s) Document(s ) Glucose Lvl 151 65-99 [place] mg/dL [facility] BUN 29.0 6.0-20.0 [place] mg/dL [facility] Creatinine 5.36 0.40-1.0 [place] mg/dL 0 [facility] BUN/Creat 5.4 7.0-29.0 [place] Ratio ratio [facility] Sodium Lvl 136 136-145 [place] mmol/L [facility] Potassium Lvl 4.3 3.5-5.1 [place] mmol/L [facility] Chloride 93 98-107 [place] mmol/L [facility] CO2 31 23-29 [place] mmol/L [facility] AGAP 12 5-15 NO [facility] Calcium Lvl 8.9 8.6-10.0 [place] mg/dL [facility] Total Protein 7.3 6.0-8.3 [facility] Albumin Lvl 3.3 3.5-5.0 [place] gm/dL [facility] Glob 4.0 2.0-4.5 [place] gm/dL [facility] A/G Ratio 0.8 1.0-2.2 [facility] ratio [facility] Bili Total 0.9 0.3-1.2 [place] mg/dL [facility] Alk Phos 50 IU/L 38-126 NO [facility] AST 10 IU/L 15-41 [facility] ALT 8 IU/L 7-40 NO [facility] ID Date Data Source [id number] 04/06/2019 06:29:00 AM EDT [facility] Added by Discern Rule GLB_ADD_GFR_CMP Name Value Range Interpretation Code Description Data Renae rce(s) Supporting Document(s ) eGFR-AA 10 >=60 LO [facility] mL/min/1.[address] eGFR-LORIE 8 >=60 LO [facility] mL/min/1.[address] ID Date Data Source [id number] 04/06/2019 06:19:00 AM EDT [facility] Name Value Range Interpretation Description Data Sup porting Code Source(s) Document(s ) Neut Auto 86.5 % 50.0-80.0 [facility] Lymph Auto 6.4 % 14.0-44.0 [facility] [place] Auto 6.9 % 0.0-12.0 [facility] Eos Auto 0.1 % 0.0-7.0 NO [facility] Baso Auto 0.1 % 0.0-3.0 NO [facility] Neut 8.8 2.0-8.4 [place] Absolute x10(3)/[facility] Lymph 0.7 0.6-4.8 NO [place] Absolute x10(3)/[facility] [place] 0.7 0.0-1.1 NO [place] Absolute x10(3)/[facility] Eos Absolute 0.0 0.0-0.5 [place] x10(3)/[facility] Baso 0.0 0.0-0.3 [place] Absolute x10(3)/[facility] ID Date Data Source [id number] 04/06/2019 06:19:00 AM EDT [facility] Name Value Range Interpretation Description Data Sup porting Code Source(s) Document(s ) WBC 10.2 4.0-10.5 [place] x10(3)/[facility] RBC 3.65 3.80-5.20 [place] x10(6)/[facility] Hgb 12.8 11.4-15.1 [place] gm/dL [facility] Hct 36.8 % 36.0-46.0 NO [facility] MCV 101 fL 80-98 HI [facility] MCH 35.1 pg 26.0-34.0 HI [facility] MCHC 34.8 32.0-36.0 [place] gm/dL [facility] RDW 15.0 % 11.0-15.0 NO [facility] Platelet 155 150-400 [place] x10(3)/[facility] MPV 8.7 fL 8.5-13.0 NO [facility] ID Date Data Source [id number] 04/06/2019 02:14:00 AM EDT [facility] Name Value Range Interpretation Code Description Data Renae rce(s) Supporting Document(s ) BNP 4724 pg/mL <=100 HI [facility] ID Date Data Source [id number] 04/06/2019 01:15:00 AM EDT [facility] Name Value Range Interpretation Description Data Sup porting Code Source(s) Document(s ) D-Dimer 2094.0 0.0-230.0 [facility] ng/ml D-DU [facility] If the result is below 230 (ng/mL DDU) D VT/PE is highly unlikely based on clinical studies and [place] [facility] [place] This is an exclusionary test. A normal D-dimer does not exclude the possibility of DIC. If the result is greater than 230 (ng/mL DDU) DVT/PE or DIC may be present . ID Date Data Source [id number] 04/06/2019 01:12:00 AM EDT [facility] Name Value Range Interpretation Code Description Data Supporting Source(s) Document(s ) Troponin- <0.03 <=0.05 NO [facility] I ng/mL [facility] ID Date Data Source [id number] 04/09/2019 08:24:00 PM EDT [facility] Name Value Range Interpretation Code Description Data Renae rce(s) Supporting Document(s ) FISH NA [facility] CML/ALL [facility] Specimen Type: Peripheral BloodClinical Indication: FISH study for oncologyRESULT :NEGATIVE FISH RESULT FOR BCR-ABL1 FUSIO N, t(9;22).INTERPRETATION :This fluorescence in-situ hybridization (FISH) assay, usin elizabethobes for BCR-ABL1 fusion ([employer]), showed anormal pattern of hy bridization in the interphase cellsexamined.Correlation with a chromos ome study as well as otherclinical and laboratory findings is indicated.If a lo w level of BCR-ABL1 positive cells or minimalresidual disease is suspected, an alysis by RT-PCR shouldalso be considered.Please expect the results of any other concurrent study in aseparate report.NOMENCLATURE :nuc yosi(ABL1,BCR)x2 [200]ASSAY INFORMATION :Method : FISHTotal Cells : 200Images Captured : 2The BCR p robe spans the common breakpoints of both the majorand minor BCR. This test will not d etect other abnormalitiesthat may have clinical significance. The cutoff value forBCR-ABL1 fusion is 1%.This test was developed and its analytical performance characteristics have been determined by [email or web address]. It has not beencleared or approved by the U.S. Food and DrugAdmini stration. This assay has been validated pursuant tot CLIA regulations and is [place] [facility] [place]. Fouzia Amador MD, PhD, [facility] Electronic Signature: O ct 2018 4:44PM ID Date Data Source [id number] 04/08/2019 02:47:00 PM EDT [facility] Name Value Range Interpretation Code Description Data Renae rce(s) Supporting Document(s ) Report Type NA [facility] Pathologist [facility] Diane Vargas M.D.,Associate [employer] or of Hematopathology,Board Certified in Anatomic Pathology,Clinical Pathology, a nd HematopathologyFor questions contact HematopathologyClient Service at [phone](electronic signature) Report Notes [facility] *This test was developed and its perform ancecharacteristics determined by [email or web address]. It has not been cleared or approved bythe U.S. Food and Drug Administration.Performance characteristi cs refer to theanalytical performance of the test. Flow Cyto [facility] Smear review show neutrophilia with occa ssionalmyelocytes. Myeloid gated cells show diminishedexpression of CD10. The lympho cyte morphology andimmunophenotype are within normal limits. Blastgated cells a re within normal limits. Diagnosis Jono/Lymp NA [facility] Peripheral blood with no morphologic jyothi mmunophenotypic evidence of a lymphoproliferativedisorder or presence of blasts. Comment Jono/Lymp NA [facility] Bcr/abl results pending. Report will be forwarded.Please note that these results are bestinterpreted in conjunction with othe r clinicalinformation.Test performed by:[email or web address], [place] [email or web address] Wan M.D. CD 19% [facility] CD 20% [facility] CD 23% [facility] CD 10% [facility] CD5+/CD19+% [facility] CD19/[place]% [facility] CD19/Lambda% [facility] CD13% [facility] CD33% [facility] CD64% NA [facility] CD2% [facility] CD 3% [facility] CD4% NA [facility] CD8% NA [facility] CD5% NA [facility] CD7% NA [facility] CD56% NA [facility] CD34% NA [facility] 12 (HLA-DR)% [facility] CD 38 [facility] CD117% [facility] CD11C% NA [facility] Gated Cells [facility] Represent 11 pct. of the total WBC Cell Viab [facility] 98 pct. (normal >80 pct. ) Gating Strat NA [facility] Spec Desc NA [facility] Spec Src NA [facility] Test performed by:[email or web address], [place] [email or web address] Wan M.D. ID Date Data Source [id number] 04/05/2019 08:31:00 PM EDT [facility] Name Value Range Interpretation Code Description Data Renae rce(s) Supporting Document(s ) LDH 163 IU/L 100-190 NO [facility] ID Date Data Source [id number] 04/05/2019 09:43:00 PM EDT [facility] Name Value Range Interpretation Description Data Sup porting Code Source(s) Document(s ) Hep A Ab, Non Reactive NO [facility] Test performed on the Siemens ADVIA Cent aur XP using a diagnostic immunoassay. Hep B Core Ab,IgM Non Reactive NO [facility] Test performed on the Siemens ADVIA Cent aur XP using a diagnostic immunoassay.This assay is susceptible to interference fro m high levels of biotin. Hep Bs Ag. Non Reactive [facility] Test performed on the Siemens ADVIA Cent aur XP using a diagnostic immunoassay. Hep C Ab. Non Reactive AB [facility] Previously reactive 18 months ago.Test p erformed on the Siemens ADVIA Centaur XP using a diagnostic immunoassay. Hep Bs Ab Immune NO [facility] Test performed on the Siemens ADVIA Cent aur XP using a diagnostic immunoassay. ID Date Data Source [id number] 04/05/2019 10:02:00 AM EDT [facility] Name Value Range Interpretation Description Data Sup porting Code Source(s) Document(s ) Vanco 27.7 5.0-40.0 NO [facility] mcg/[facility] ID Date Data Source [id number] 04/05/2019 04:39:00 AM EDT [facility] Name Value Range Interpretation Description Data Sup porting Code Source(s) Document(s ) pH Art 7.42 7.35-7.45 [facility] pCO2 Art 46 mmHg 35-45 [facility] pO2 Art 114 mmHg 80-100 [facility] HCO3 Art 29.8 20.0-26.0 HI [facility] mmol/L [facility] BE(B) 4.5 -2.0-2.0 [facility] mmol/L [facility] sO2m 98 % vol 94-100 NO [facility] Modality [facility] VERIFIED by Discern Expert. FiO2. 50 % [facility] VT 500 mL [facility] PEEP 8 cmH20 [facility] Mech Rate 14 bpm [facility] Sports Statistician Name: [facility] VERIFIED by Discern Expert. Draw Date: [facility] VERIFIED by Discern Expert. Draw Time: [facility] VERIFIED by Discern Expert. Analyzed Date [facility] VERIFIED by Discern Expert. Analyzed Time [facility] VERIFIED by Discern Expert. Sample Site: [facility] CO2 Totl Art 31 19-24 [facility] ID Date Data Source [id number] 04/05/2019 07:19:00 AM EDT [facility] Name Value Range Interpretation Code Description Data Renae rce(s) Supporting Document(s ) ABO/Rh UN [facility] ID Date Data Source [id number] 04/05/2019 07:09:00 AM EDT [facility] Name Value Range Interpretation Code Description Data Renae rce(s) Supporting Document(s ) ABSC Gel NO [facility] ID Date Data Source [id number] 04/05/2019 04:14:00 AM EDT [facility] Manual Diff added by Discern Rule GLB_CB C_AUTO_REFLEX Name Value Range Interpretation Description Data Sup porting Code Source(s) Document(s ) Segs 93 % 50-80 [facility] Band 1 % 0-2 [facility] Neutr 7.6 2.0-8.4 [facility] Absolute x10(3)/[facility] Lymph 4 % 14-44 [facility] Monocyte 2 % 0-12 [facility] Eos 0 % 0-7 [facility] Basophil 0 % 0-3 [facility] RBC Morph Normocyt/ NO [facility] Plt Estimate [facility] Plt Size [facility] ID Date Data Source [id number] 04/05/2019 03:47:00 AM EDT [facility] Name Value Range Interpretation Description Data Sup porting Code Source(s) Document(s ) Magnesium 2.0 mg/dL 1.6-2.6 NO [facility] ID Date Data Source [id number] 04/05/2019 03:45:00 AM EDT [facility] Added by Discern Rule GLB_ADD_GFR_BMP Name Value Range Interpretation Code Description Data Renae rce(s) Supporting Document(s ) eGFR-AA 10 >=60 [facility] mL/min/1.[address] [place] [address] eGFR-LORIE 8 >=60 [facility] mL/min/1.[address] ID Date Data Source [id number] 04/05/2019 03:45:00 AM EDT [facility] Name Value Range Interpretation Description Data Sup porting Code Source(s) Document(s ) Phosphorus 6.3 mg/dL 2.5-5.0 HI [facility] ID Date Data Source [id number] 04/05/2019 03:45:00 AM EDT [facility] Name Value Range Interpretation Description Data Sup porting Code Source(s) Document(s ) Glucose Lvl 224 65-99 [place] mg/dL [facility] BUN 25.0 6.0-20.0 [place] mg/dL [facility] Creatinine 5.34 0.40-1.0 [place] mg/dL 0 [facility] BUN/Creat 4.7 7.0-29.0 [place] Ratio ratio [facility] Sodium Lvl 136 136-145 [place] mmol/L [facility] Potassium Lvl 4.4 3.5-5.1 NO [place] mmol/L [facility] Chloride 95 98-107 [place] mmol/L [facility] CO2 28 23-29 [place] mmol/L [facility] AGAP 14 5-15 NO [place] [facility] Calcium Lvl 8.7 8.6-10.0 NO [place] mg/dL [facility] ID Date Data Source [id number] 04/05/2019 03:39:00 AM EDT [facility] Name Value Range Interpretation Description Data Sup porting Code Source(s) Document(s ) WBC 8.1 4.0-10.5 NO [place] x10(3)/mc [facility] RBC 3.73 3.80-5.20 [place] x10(6)/[facility] Hgb 12.6 11.4-15.1 [place] gm/dL [facility] Hct 38.3 % 36.0-46.0 NO [facility] MCV 102 fL 80-98 HI [facility] MCH 33.8 pg 26.0-34.0 NO [facility] MCHC 33.0 32.0-36.0 NO [place] gm/dL [facility] RDW 14.5 % 11.0-15.0 NO [facility] Platelet 148 150-400 LO [facility] x10(3)/[facility] MPV 8.0 fL 8.5-13.0 [facility] ID Date Data Source [id number] 04/04/2019 07:37:00 PM EDT [facility] Name Value Range Interpretation Description Data Sup porting Code Source(s) Document(s ) pH Art 7.43 7.35-7.45 [facility] pCO2 Art 44 mmHg 35-45 [facility] pO2 Art 268 mmHg 80-100 [facility] HCO3 Art 29.2 20.0-26.0 [place] mmol/L [facility] BE(B) 4.2 -2.0-2.0 [place] mmol/L [facility] sO2m 99 % vol 94-100 [facility] Modality [facility] VERIFIED by Discern Expert. FiO2. 100 % [facility] VT 500 mL [facility] PEEP 8 cmH20 [facility] Mech Rate 14 bpm [facility] Sports Statistician Name: [facility] VERIFIED by Discern Expert. Draw Date: [facility] VERIFIED by Discern Expert. Draw Time: [facility] VERIFIED by Discern Expert. Analyzed Date [facility] VERIFIED by Discern Expert. Analyzed Time [facility] VERIFIED by Discern Expert. Sample Site: [facility] CO2 Totl Art 31 19-24 [facility] ID Date Data Source [id number] 04/04/2019 05:30:00 PM EDT [facility] Name Value Range Interpretation Description Data Sup porting Code Source(s) Document(s ) pH Art 7.23 7.35-7.45 [facility] pCO2 Art 66 mmHg 35-45 [facility] pO2 Art 60 mmHg 80-100 [facility] HCO3 Art 27.6 20.0-26.0 [facility] mmol/L [facility] BE(B) -1.5 -2.0-2.0 NO [facility] mmol/L [facility] sO2m 90 % vol 94-100 [facility] Modality [facility] VERIFIED by Discern Expert. FiO2. 100 % [facility] VT 500 mL [facility] PEEP 8 cmH20 [facility] Mech Rate 14 bpm [facility] Sports Statistician Name: [facility] VERIFIED by Discern Expert. Draw Date: [facility] VERIFIED by Discern Expert. Draw Time: [facility] VERIFIED by Discern Expert. Analyzed Date [facility] VERIFIED by Discern Expert. Analyzed Time [facility] VERIFIED by Discern Expert. Sample Site: [facility] CO2 Totl Art 30 19-24 [facility] ID Date Data Source [id number] 04/04/2019 03:51:00 PM EDT [facility] Name Value Range Interpretation Description Data Sup porting Code Source(s) Document(s ) Neut Auto 62.0 % 50.0-80.0 NO [facility] Lymph Auto 16.8 % 14.0-44.0 NO [facility] [place] Auto 11.7 % 0.0-12.0 NO [facility] Eos Auto 8.3 % 0.0-7.0 [facility] Baso Auto 1.2 % 0.0-3.0 NO [facility] Neut 3.4 2.0-8.4 NO [place] Absolute x10(3)/[facility] Lymph 0.9 0.6-4.8 NO [place] Absolute x10(3)/[facility] [place] 0.6 0.0-1.1 NO [place] Absolute x10(3)/[facility] Eos Absolute 0.5 0.0-0.5 NO [place] x10(3)/[facility] Baso 0.1 0.0-0.3 NO [place] Absolute x10(3)/[facility] ID Date Data Source [id number] 04/04/2019 03:51:00 PM EDT [facility] Name Value Range Interpretation Description Data Sup porting Code Source(s) Document(s ) WBC 5.4 4.0-10.5 NO [place] x10(3)/[facility] RBC 3.85 3.80-5.20 NO [place] x10(6)/[facility] Hgb 13.6 11.4-15.1 NO [place] gm/dL [facility] Hct 39.1 % 36.0-46.0 NO [facility] MCV 102 fL 80-98 [facility] MCH 35.3 pg 26.0-34.0 [facility] MCHC 34.7 32.0-36.0 NO [place] gm/dL [facility] RDW 14.5 % 11.0-15.0 [facility] Platelet 159 150-400 NO [place] x10(3)/[facility] MPV 7.9 fL 8.5-13.0 [facility] ID Date Data Source [id number] 04/09/2019 04:00:00 PM EDT [facility] 1965 [phone] Microbiology - Blood CulturesPROCEDURE: Culture,Blood RCE: Blood BODY SITE:COLLECTED DATE/TIME: 15:37 EDT RECEIVED DATE/TIME: 04/04/2019 15:55 EDTSTART DATE/TIME: 04/04/2019 15:55 EDT FREE TEXT SOURCE:ORDERING PHYSICIAN: Kamron BENAVIDES, Carleen IveyFINAL REPORTSFinal Report []Reported Date/Time: 04/09/2019 16:00 EDTNo growth at 5 days.PRELIMINARY REPORTSPreliminary Report []Reported Date/Time: 04/08/2019 16:01 EDTNo growth at 4 days.Preliminary Report []Reported Da te/Time: 04/07/2019 16:01 EDTNo growth at 3 days.Preliminary Report []Reported Date /Time: 04/06/2019 16:01 EDTNo growth at 2 days.Preliminary Report []Reported Date /Time: 04/05/2019 16:01 EDTNo growth at 1 day.Preliminary Report []Reported Date/ Time: 04/05/2019 10:00 EDTBlood culture incubating < or = 24 hours; negative to date Name Value Range Interpretation Code Description Data Renae rce(s) Supporting Document(s ) ID Date Data Source [id number] 04/09/2019 04:00:00 PM EDT [facility] 1965 [phone] Microbiology - Blood CulturesPROCEDURE: Culture,Blood RCE: Blood BODY SITE:COLLECTED DATE/TIME: 15:24 EDT RECEIVED DATE/TIME: 04/04/2019 15:55 EDTSTART DATE/TIME: 04/04/2019 15:55 EDT FREE TEXT SOURCE:ORDERING PHYSICIAN: Kamron BENAVIDES, Carleen IveyFINAL REPORTSFinal Report []Reported Date/Time: 04/09/2019 16:00 EDTNo growth at 5 days.PRELIMINARY REPORTSPreliminary Report []Reported Date/Time: 04/08/2019 16:01 EDTNo growth at 4 days.Preliminary Report []Reported Da te/Time: 04/07/2019 16:01 EDTNo growth at 3 days.Preliminary Report []Reported Date /Time: 04/06/2019 16:01 EDTNo growth at 2 days.Preliminary Report []Reported Date /Time: 04/05/2019 16:01 EDTNo growth at 1 day.Preliminary Report []Reported Date/ Time: 04/05/2019 10:00 EDTBlood culture incubating < or = 24 hours; negative to date Name Value Range Interpretation Code Description Data Renae rce(s) Supporting Document(s ) ID Date Data Source [id number] 04/04/2019 04:48:00 PM EDT [facility] Name Value Range Interpretation Code Description Data Renae rce(s) Supporting Document(s ) ABSC Gel NO [facility] ID Date Data Source [id number] 04/04/2019 04:38:00 PM EDT [facility] Name Value Range Interpretation Code Description Data Renae rce(s) Supporting Document(s ) INR 1.2 ratio 0.9-1.2 NO [facility] Indications INRProphylaxis of venous thromo-embolism: Non-hip surgery..... ..........................1.5 - 2.5 Hip surgery................................. ..2.0 - 3.0Deep Vein Thrombosis or Pulmonary Embolism........2.0 - 3.0Prevention of s ystemic embolism in valvular heart disease, tissue prosthetic heart valvesor acute PA.......................................2.0 - 3.5Prevention of embolism in mechanical heartvalves or recurrent systemic embolism.............3.0 - 4.5 PT 13.8 second(s) 10.2-12.9 HI [facility] ID Date Data Source [id number] 04/04/2019 04:18:00 PM EDT [facility] Name Value Range Interpretation Description Data Sup porting Code Source(s) Document(s ) Lactic Acid 1.5 mmol/L <=2.0 NO [facility] ID Date Data Source [id number] 04/04/2019 04:16:00 PM EDT [facility] Name Value Range Interpretation Description Data Sup porting Code Source(s) Document(s ) Magnesium 2.2 mg/dL 1.6-2.6 NO [facility] ID Date Data Source [id number] 04/04/2019 04:16:00 PM EDT [place] [facility] Name Value Range Interpretation Description Data Sup porting Code Source(s) Document(s ) Glucose Lvl 80 mg/dL 65-99 NO [facility] BUN 19.0 6.0-20.0 NO [place] mg/dL [facility] Creatinine 4.94 0.40-1.0 [place] mg/dL 0 [facility] BUN/Creat 3.8 7.0-29.0 LO [place] Ratio ratio [facility] Sodium Lvl 139 136-145 [place] mmol/L [facility] Potassium Lvl 3.8 3.5-5.1 NO [place] mmol/L [facility] Chloride 94 98-107 [place] mmol/L [facility] CO2 33 23-29 [place] mmol/L [facility] AGAP 12 5-15 NO [facility] Calcium Lvl 9.4 8.6-10.0 NO [place] mg/dL [facility] Total Protein 7.8 6.0-8.3 NO [place] gm/dL [facility] Albumin Lvl 3.6 3.5-5.0 NO [place] gm/dL [facility] Glob 4.2 2.0-4.5 NO [place] gm/dL [facility] A/G Ratio 0.9 1.0-2.2 LO [place] ratio [facility] Bili Total 1.0 0.3-1.2 [place] mg/dL [facility] Alk Phos 56 IU/L 38-126 NO [facility] AST 14 IU/L 15-41 LO [facility] ALT 8 IU/L 7-40 NO [facility] ID Date Data Source [id number] 04/04/2019 04:11:00 PM EDT [facility] Added by Discern Rule GLB_ADD_GFR_CMP Name Value Range Interpretation Code Description Data Renae rce(s) Supporting Document(s ) eGFR-AA 11 >=60 LO [facility] mL/min/1.7 - [address] eGFR-LORIE 9 >=60 LO [facility] mL/min/1.7 - [address] ID Date Data Source [id number] 04/04/2019 04:11:00 PM EDT [facility] Name Value Range Interpretation Description Data Sup porting Code Source(s) Document(s ) Phosphorus 4.9 mg/dL 2.5-5.0 NO [facility] ID Date Data Source [id number] 04/04/2019 04:04:00 PM EDT [facility] Name Value Range Interpretation Code Description Data Renae rce(s) Supporting Document(s ) ABO/Rh UN [facility] ID Date Data Source [id number] 03/28/2019 12:31:00 PM EDT [facility] [place], [place] [address]Phone: Fax: [phone] Derik Fernandez M.D., Director of PathologyCYTOLOGY REPORTPatient: RADHA BAUM MAccession #: [id number]: 03/27/2019 09:05Rece ived: 03/27/2019 10:21Reported: 03/28/2019 12:30Clinical Diagnosis and HistoryESRD. Specimen(s) Received1:Right pleural fluidFINAL MICROSCOPIC DIAGNOSISRight pl eural fluid (one thin prep, one cytospin and 2 cell blocks):-Negative for malignant c ells.-Reactive mesothelial cells and mixed inflammatory cells with background of pr oteinaceous materialCase interpreted at [facility], [address] [place] [id number]. Electronically Signed By: Isaías Roa M.D.Date/Time R eported: 03/28/2019 12:30:55Gross Description1. Received in a Thi nPrep CytoLyt container, labeled with the patient's name, date of , and right pleural fluid, is approximately 60 cc of dark red opaque fluid, forwarded to cyto logy as 1.1. Additionally received, in a red topped plastic container, labeled with t he patient's name, date of , and right pleural fluid, is approximately 2700 cc of dark red, opaque fluid, forwarded to cytology for cell block only as 1.2.sxi/ 03/27/2019 Kathleen Villanueva Name Value Range Interpretation Code Description Data Renae rce(s) Supporting Document(s ) ID Date Data Source [id number] 03/28/2019 07:03:00 AM EDT [facility] Name Value Range Interpretation Description Data Sup porting Code Source(s) Document(s ) Magnesium 2.1 mg/dL 1.6-2.6 NO [facility] ID Date Data Source [id number] 03/28/2019 07:00:00 AM EDT [facility] Added by Discern Rule GLB_ADD_GFR_BMP Name Value Range Interpretation Code Description Data Renae rce(s) Supporting Document(s ) eGFR-AA 9 >=60 LO [facility] mL/min/1.[address] eGFR-LORIE 8 >=60 LO [facility] mL/min/1.[address] [place] [address] ID Date Data Source [id number] 03/28/2019 07:00:00 AM EDT [facility] Name Value Range Interpretation Description Data Sup porting Code Source(s) Document(s ) Glucose Lvl 94 mg/dL 65-99 NO [facility] BUN 28.0 6.0-20.0 [place] mg/dL [facility] Creatinine 5.83 0.40-1.0 [place] mg/dL 0 [facility] BUN/Creat 4.8 7.0-29.0 LO [place] Ratio ratio [facility] Sodium Lvl 138 136-145 NO [place] mmol/L [facility] Potassium Lvl 3.8 3.5-5.1 NO [place] mmol/L [facility] Chloride 96 98-107 [place] mmol/L [facility] CO2 33 23-29 [place] mmol/L [facility] AGAP 9 5-15 NO [facility] Calcium Lvl 8.1 8.6-10.0 LO [place] mg/dL [facility] ID Date Data Source [id number] 03/28/2019 06:27:00 AM EDT [facility] Name Value Range Interpretation Description Data Sup porting Code Source(s) Document(s ) Neut Auto 58.6 % 50.0-80.0 NO [facility] Lymph Auto 20.2 % 14.0-44.0 NO [facility] [place] Auto 9.5 % 0.0-12.0 [facility] Eos Auto 10.8 % 0.0-7.0 [facility] Baso Auto 0.9 % 0.0-3.0 NO [facility] Neut 3.2 2.0-8.4 NO [place] Absolute x10(3)/[facility] Lymph 1.1 0.6-4.8 NO [place] Absolute x10(3)/[facility] [place] 0.5 0.0-1.1 NO [place] Absolute x10(3)/[facility] Eos Absolute 0.6 0.0-0.5 HI [place] x10(3)/[facility] Baso 0.0 0.0-0.3 NO [place] Absolute x10(3)/[facility] ID Date Data Source [id number] 03/28/2019 06:27:00 AM EDT [facility] Name Value Range Interpretation Description Data Sup porting Code Source(s) Document(s ) WBC 5.5 4.0-10.5 NO [place] x10(3)/[facility] RBC 3.49 3.80-5.20 LO [place] x10(6)/[facility] Hgb 12.0 11.4-15.1 NO [place] gm/dL [facility] Hct 35.6 % 36.0-46.0 [facility] MCV 102 fL 80-98 [facility] MCH 34.5 pg 26.0-34.0 [facility] MCHC 33.8 32.0-36.0 NO [place] gm/dL [facility] RDW 14.6 % 11.0-15.0 [facility] Platelet 112 150-400 [facility] MPV 8.4 fL 8.5-13.0 [facility] ID Date Data Source [id number] 04/01/2019 11:34:00 AM EDT [facility] 1965 Microbiology - Wound/Misc CulturesPROCED URE: Culture,Body Fluid with ACCESSION: Gram Stain [O1]SOURCE: Pleural Fl BODY SITE: See CommentCOLLECTED DATE/TIME: 03/27/20 09:00 EDT RECEIVED DATE/TIME: 03/27/2019 11:17 EDTSTART DATE/TIME: 03/27/2019 11:17 EDT FREE TEXT SOURCE:ORDERING PHYSICIAN: Sriram pickens MD, LuisFINAL REPORTSFinal Report []Reported Date/Time: 04/01/2019 11:34 E DTNo growth aerobically or anaerobically in 5 days.PRELIMINARY REPORTSPreliminar y Report []Reported Date/Time: 03/31/2019 07:21 EDTNo growth aerobically or anaero bically in 4 days. Continuing incubationPreliminary Report []Reported Date/Time: 03/30/2019 07:46 EDTNo growth aerobically or anaerobically in 3 days. Continuing incubationPreliminary Report []Reported Date/Time: 03/29/2019 12:23 E DTNo growth aerobically or anaerobically in 2 days. Continuing incubationPreliminary Report []Reported Date/Time: 03/28/2019 13:02 EDTNo growth to date Continuing i ncubationSTAINSGS []Reported Date/Time: 03/27/2019 16:15 EDTMany Red B lood Cells Rare White Blood Cells No organisms seen.Order CommentsO1: Cultu re,Body Fluid with Gram Stain (Cult B Fluid) Chest Name Value Range Interpretation Code Description Data Renae rce(s) Supporting Document(s ) ID Date Data Source [id number] 03/27/2019 11:20:00 AM EDT [facility] Name Value Range Interpretation Code Description Data Renae rce(s) Supporting Document(s ) LDH BF 266 IU/L NA [facility] A specific reference range is not availa ble for this analyte. The following information is provided to aid in interp retation of results. Correlation with clinical findings is recommended.Pleural fluidAccording to the traditional Light's Criteria Rule, if at least one of the fo [facility]wing three criteria (ie, component tests of the rule) is fulfilled, the fluid is defined as an exudate: Pleural fluid protein/serum protein ratio greater than 0.5, or Pleural fluid LDH/serum LDH ratio greater than 0.6, or Pleural fluid LD H greater than 126 IU/L (two-thirds the upper limit of the laboratory's normal serum L DH) Alternatively, a serum: pleural fluid albumin gradient of > 1.2 g/dl is sugges tive of a transudate.Reference: http://www.[employer].com/contents/jvgemwfdls-ppucvwwuyi-ca-g-prsdfds-hyacezyo-in- adult h-vnrisgh-drojyswDvgefpnhtv fluidThe asc itic fluid/serum (AF/S) ratio of LDH is approximately 0.4 in uncomplicated ascit es due to cirrhosis. If the LDH ratio is more than 1.0, LDH is being produced in or re leased into the peritoneal cavity, usually because of infection, bowel perforation, or tumor. Patients with ascitic fluid that has a corrected neutrophil count ?250 ce lls/mm3 and meets two out of the following three criteria are unlikely to have SBP and warrant immediate evaluation to determine if bowel perforation into ascites has oc curred: Total protein >1 g/dL Glucose <50 mg/dL (2.8 mmol/L) LDH greater th an the upper limit of normal for serumReference: http://www.[employer]/contents/evaluat qoh-ij-mpwgwl-with-ascitesPericardial FluidGeneral chemistry tests have not be en standardized for pericardial fluid analysis. Thus, reference ranges/ clinic al cutoff values have not been established. Results should be correlated clinically. LDH. BF Type NA [facility] [facility] BF Laterality [facility] ID Date Data Source [id number] 03/27/2019 11:16:00 AM EDT [facility] Name Value Range Interpretation Description Data Sup porting Code Source(s) Document(s ) Glucose BF 106 mg/dL [facility] A specific reference range is not availa ble for this analyte. The following information is provided to aid in interpretation of results. Correlation w ith clinical findings is recommended.Pleural fluidA low pleural fluid glucose concentration (less than 60 mg/d L [3.33 mmol/liter], or a pleural fluid/serum glucose ratio less than 0.5) narrows the differential diagnosis of the exudate to the following possibilities: Rheumatoid pleurisy Complicated parapneumonic ef fusion or empyema Malignant effusion Tuberculous pleurisy Lupus pleuritis Esophageal ruptureAll transudates and all other exudates have pleural fluid glucose concentration similar to that of blood g lucose.Reference: http://www.[employer]/contents/nmmtmxikrf-pxanagafsu-kb-b-wbnavgr-mhfhxtom-in- isnljn-dtubucf-vbjosoqMljkbitq al fluid The ascitic fluid glucose mannie ntration is similar to that in serum. Low concentrations of glucose could represent: bacterial infection (se e below), malignant ascites, or bowel perforation. Patients with ascitic fluid that has a corrected neutr ophil count ?250 cells/mm3 and meets two out of the following three criteria are unlikely to have SBP and wa rrant immediate evaluation to determine if bowel perforation into ascites has occurred: Total protein > 1 g/dL Glucose <50 mg/dL (2.8 mmol/L) LDH greater than the upper limit of normal for serumReference: http://www.[employer] [facility]/contents/evaluat bfn-lh-vrkdqc-with-ascitesPericardial FluidGeneral chemistry tests have not been standardized for pericardi al fluid analysis. Thus, reference ranges/ clinical cutoff values have not been established. Results should be correlated clinically. Glucose BF Type NA [facility] BF Laterality NA [facility] ID Date Data Source [id number] 03/27/2019 11:15:00 AM EDT [facility] Name Value Range Interpretation Description Data Sup porting Code Source(s) Document(s ) Protein BF 3.8 gm/dL [facility] A specific reference range is not availa ble for this analyte. The following information is provided to aid in interp retation of results. Correlation with clinical findings is recommended.Pleural fluidAccording to the traditional Light's Criteria Rule, if at least one of the fo [facility] three criteria (ie, component tests of the rule) is fulfilled, the fluid is defined as an exudate: Pleural fluid protein/serum protein ratio greater than 0.5, or Pleural fluid LDH/serum LDH ratio greater than 0.6, or Pleural fluid LD H greater than 126 IU/L (two-thirds the upper limit of the laboratory's normal serum L DH) Alternatively, a serum: pleural fluid albumin gradient of > 1.2 g/dl is sugges tive of a transudate.Reference: http://www.[employer] [facility]/contents/zzukwwmihv-cjtmjavbqt-yc-n-bfbprab-mfkjbbfp-in- adult e-mtgcdbp-cugmfjxHsykceyrzl fluidAscitic fluid can be classified as an exudate if the total protein concentration is ?2.5 or 3 g/dL and a transudate if it is below this cutoff. However, the exudate/transudate system of ascitic fluid classification has been replaced by the SAAG, which is a mo re useful measure for determining whether portal hypertension is present.Patients with ascitic fluid that has a corrected neutrophil count ?250 cells/mm3 and meet s two out of the following three criteria are unlikely to have SBP and warrant immedia te evaluation to determine if bowel perforation into ascites has occurred: Total protein >1 g/dL Glucose <50 mg/dL (2.8 mmol/L) LDH greater than the [facility] limit of normal for serumReference: http://www.[employer] [place]/contents/evaluat ujm-mn-qpzgmd-with-ascitesPericardial FluidGeneral chemistry tests have not be en standardized for pericardial fluid analysis. Thus, reference ranges/ clinic al cutoff values have not been established. Results should be correlated clinically. Protein BF Type NA [facility] BF Laterality [facility] ID Date Data Source [id number] 03/27/2019 11:01:00 AM EDT [facility] Name Value Range Interpretation Description Data Sup porting Code Source(s) Document(s ) BF Type 1 [facility] Color BF 1 NO [facility] Appear BF 1 Clear AB [facility] WBC BF 1 1296 0-200 [facility] cells/[facility] RBC BF 1 761790 0-200 HI [facility] cells/[facility] Segs BF 1 2 % 0-25 [facility] Lymph BF 1 92 % [facility] Monocyt BF 1 0 % 0-25 [facility] Eos BF 1 3 % NA [facility] Baso BF 1 2 % NA [facility] BF Type Tube 1 NA [facility] BF Laterality NA [facility] ID Date Data Source [id number] 03/27/2019 06:11:00 AM EDT [facility] Name Value Range Interpretation Description Data Sup porting Code Source(s) Document(s ) Magnesium 2.3 mg/dL 1.6-2.6 NO [facility] ID Date Data Source [id number] 03/27/2019 06:11:00 AM EDT [facility] Please draw vanco level on 03/27 at 0400. Name Value Range Interpretation Description Data Sup porting Code Source(s) Document(s ) Vanco 14.6 5.0-40.0 NO [facility] mcg/mL [facility] ID Date Data Source [id number] 03/27/2019 06:07:00 AM EDT [facility] Added by Discern Rule GLB_ADD_GFR_BMP Name Value Range Interpretation Code Description Data Renae rce(s) Supporting Document(s ) eGFR-AA 6 >=60 LO [facility] mL/min/1.[address] eGFR-LORIE 5 >=60 LO [facility] mL/min/1.[address] ID Date Data Source [id number] 03/27/2019 06:07:00 AM EDT [facility] Name Value Range Interpretation Description Data Sup porting Code Source(s) Document(s ) Glucose Lvl 134 65-99 [place] [facility] mg/dL [facility] BUN 52.0 6.0-20.0 HI [facility] mg/dL [facility] Creatinine 8.23 0.40-1.0 [facility] mg/dL 0 [facility] BUN/Creat 6.3 7.0-29.0 [place] [facility] Ratio ratio [facility] Sodium Lvl 138 136-145 NO [facility] mmol/L [facility] Potassium Lvl 4.4 3.5-5.1 NO [facility] mmol/L [facility] Chloride 96 98-107 [place] [facility] mmol/L [facility] CO2 31 23-29 [place] [facility] mmol/L [facility] AGAP 11 5-15 NO [facility] Calcium Lvl 8.3 8.6-10.0 LO [facility] mg/dL [facility] ID Date Data Source [id number] 03/27/2019 05:38:00 AM EDT [facility] Name Value Range Interpretation Description Data Sup porting Code Source(s) Document(s ) WBC 6.2 4.0-10.5 NO [facility] x10(3)/[facility] RBC 3.50 3.80-5.20 LO [facility] x10(6)/[facility] Hgb 12.2 11.4-15.1 NO [place] gm/dL [facility] Hct 35.8 % 36.0-46.0 [facility] MCV 102 fL 80-98 [facility] MCH 34.7 pg 26.0-34.0 [facility] MCHC 34.0 32.0-36.0 NO [place] gm/dL [facility] RDW 14.5 % 11.0-15.0 [facility] Platelet 121 150-400 LO [place] x10(3)/[facility] MPV 8.3 fL 8.5-13.0 [facility] ID Date Data Source [id number] 03/26/2019 11:55:00 AM EDT [facility] unable to add Name Value Range Interpretation Description Data Sup porting Code Source(s) Document(s ) Procalcitonin 0.47 0.00-0.5 NO [facility] Lvl ng/mL 0 [facility] < 0.50 ng/mL Low risk for progression to severe systemic infection (severe sepsis/septic shock). CAUTION: PCT level s below 0.5 ng/mL do not exclude an infection, because localized infections (without systemic signs) may be associated with such low levels. If PCT is measure d very early after a bacterial challenge (usually < 6 hours), these values may st ill be low. In this case, PCT should be re-assessed 6-24 hours later. >0.50 and < 2.00 ng/mL Moderate risk for progression to severe systemic infection (severe sep sis/septic shock). The patient should be closely monitored both clinically and by re-assessing PCT within 6-24 hours.>2.00 ng/mL High risk for progression to kaitlynn re systemic infection (severe sepsis/septic shock).> 10.0 ng/mL High likelihood of severe sepsis or septic shock. ID Date Data Source [id number] 03/26/2019 06:12:00 AM EDT [facility] Name Value Range Interpretation Description Data Sup porting Code Source(s) Document(s ) Magnesium 2.4 mg/dL 1.6-2.6 NO [facility] ID Date Data Source [id number] 03/26/2019 06:11:00 AM EDT [facility] Added by Discern Rule GLB_ADD_GFR_BMP Name Value Range Interpretation Code Description Data Renae rce(s) Supporting Document(s ) eGFR-AA 7 >=60 LO [facility] mL/min/1.7 - [address] eGFR-LORIE 6 >=60 LO [facility] mL/min/1.7 - [address] ID Date Data Source [id number] 03/26/2019 06:11:00 AM EDT [facility] Name Value Range Interpretation Description Data Sup porting Code Source(s) Document(s ) Glucose Lvl 103 65-99 [place] [facility] mg/dL [facility] BUN 40.0 6.0-20.0 HI [facility] mg/dL [facility] Creatinine 7.38 0.40-1.0 [facility] mg/dL 0 [facility] BUN/Creat 5.4 7.0-29.0 [place] [facility] Ratio ratio [facility] Sodium Lvl 137 136-145 NO [facility] mmol/L [facility] Potassium Lvl 4.3 3.5-5.1 NO [facility] mmol/L [facility] Chloride 96 98-107 [place] [facility] mmol/L [facility] CO2 32 23-29 [place] [facility] mmol/L [facility] AGAP 9 5-15 NO [facility] Calcium Lvl 8.3 8.6-10.0 [place] [facility] mg/dL [facility] ID Date Data Source [id number] 03/26/2019 05:54:00 AM EDT [facility] Name Value Range Interpretation Description Data Sup porting Code Source(s) Document(s ) Neut Auto 53.2 % 50.0-80.0 NO [facility] Lymph Auto 23.9 % 14.0-44.0 NO [facility] [place] Auto 13.5 % 0.0-12.0 [facility] Eos Auto 8.4 % 0.0-7.0 [facility] Baso Auto 1.0 % 0.0-3.0 NO [facility] Neut 2.9 2.0-8.4 NO [facility] x10(3)/[facility] Lymph 1.3 0.6-4.8 NO [facility] x10(3)/[facility] [place] 0.7 0.0-1.1 NO [facility] x10(3)/[facility] Eos Absolute 0.5 0.0-0.5 NO [facility] x10(3)/[facility] Baso 0.1 0.0-0.3 NO [facility] x10(3)/[facility] ID Date Data Source [id number] 03/26/2019 05:54:00 AM EDT [facility] Name Value Range Interpretation Description Data Sup porting Code Source(s) Document(s ) WBC 5.4 4.0-10.5 NO [place] x10(3)/[facility] RBC 3.56 3.80-5.20 LO [facility] x10(6)/[facility] Hgb 12.4 11.4-15.1 NO [facility] gm/dL [facility] Hct 36.1 % 36.0-46.0 NO [facility] MCV 101 fL 80-98 [facility] MCH 34.7 pg 26.0-34.0 [facility] MCHC 34.3 32.0-36.0 NO [place] gm/dL [facility] RDW 14.7 % 11.0-15.0 NO [facility] Platelet 119 150-400 LO [facility] x10(3)/[facility] MPV 8.4 fL 8.5-13.0 LO [facility] ID Date Data Source [id number] 03/27/2019 10:18:00 AM EDT [facility] if diarrhoe not improved Name Value Range Interpretation Description Data Sup porting Code Source(s) Document(s ) C Diff, Negative NA [facility] DNA,pcr [facility] 027 Strain Presumptive NA [facility] Neg [facility] ID Date Data Source [id number] 03/30/2019 04:00:00 PM EDT [facility] 1965 [phone] Microbiology - Blood CulturesPROCEDURE: Culture,Blood [O1] RCE: Blood BODY SITE:COLLECTED DATE/TIME: 11:25 EDT RECEIVED DATE/TIME: 03/25/2019 12:02 EDTSTART DATE/TIME: 03/25/2019 12:02 EDT FREE TEXT SOURCE:ORDERING PHYSICIAN: Maria Guadalupe Purvis MDFINAL REPORTSFinal Report []Reported Date/Time: 03/30/2019 16:00 EDTNo growth at 5 days.PRELIMINARY REPORTSPreliminary Report []Reported Date/Time: 03/29/2019 16:00 EDTNo growth at 4 days.Preliminary Report []Reported Da te/Time: 03/28/2019 16:00 EDTNo growth at 3 days.Preliminary Report []Reported Date /Time: 03/27/2019 16:00 EDTNo growth at 2 days.Preliminary Report []Reported Date /Time: 03/26/2019 16:00 EDTNo growth at 1 day.Preliminary Report []Reported Date/ Time: 03/26/2019 08:00 EDTBlood culture incubating < or = 24 hours; negative to datePreliminary Report []Reported Date/Time: 03/25/2019 12:03 EDTThe blood volume miriam ected is less than optimal and this may negatively affect the sensitivity of the blood culture.Order CommentsO1: Culture,Blood (Cult Blood) RN draw 03/25/2019 11:18:34 EDT [facility] Name Value Range Interpretation Code Description Data Renae rce(s) Supporting Document(s ) ID Date Data Source [id number] 03/30/2019 04:00:00 PM EDT [facility] 1965 [phone] Microbiology - Blood CulturesPROCEDURE: Culture,Blood RCE: Blood BODY SITE:COLLECTED DATE/TIME: 11:11 EDT RECEIVED DATE/TIME: 03/25/2019 12:42 EDTSTART DATE/TIME: 03/25/2019 12:43 EDT FREE TEXT SOURCE:ORDERING PHYSICIAN: Maria Guadalupe Purvis MDFINAL REPORTSFinal Report []Reported Date/Time: 03/30/2019 16:00 EDTNo growth at 5 days.PRELIMINARY REPORTSPreliminary Report []Reported Date/Time: 03/29/2019 16:00 EDTNo growth at 4 days.Preliminary Report []Reported Da te/Time: 03/28/2019 16:00 EDTNo growth at 3 days.Preliminary Report []Reported Date /Time: 03/27/2019 16:00 EDTNo growth at 2 days.Preliminary Report []Reported Date /Time: 03/26/2019 16:00 EDTNo growth at 1 day.Preliminary Report []Reported Date/ Time: 03/26/2019 08:00 EDTBlood culture incubating < or = 24 hours; negative to date Name Value Range Interpretation Code Description Data Renae rce(s) Supporting Document(s ) ID Date Data Source [id number] 03/28/2019 06:16:00 PM EDT [facility] Name Value Range Interpretation Code Description Data Renae rce(s) Supporting Document(s ) E Chaff IgG NA [facility] E Chaff IgM NA [facility] Ehrlicia NA [facility] ANTIBODY NOT DETECTEDREFERENCE RANGE:IgG <1:64IgM <1:20Ehrlichia Chaffeensis has been identified as theCausative agent of Lauryn n Monocytic Ehrlichiosis(HME). Infected individuals produce specificantibodies t o E. Chaffeensis that can be detectedby an immunofluorescent antibody (IFA)test.Sin gle IgG IFA titers of 1:64 or greater indicateexposure to E. Chaffeensis. A fo ur-fold rise inIgG titers between acute and convalescent samplesand/or the presenceo f IgM antibody againstE. Chaffeensis suggest recent or current infection.This test wa s developed and its analyticalperformance characteristics have been determinedby [facility]. It hasnot been cleared or approved by FDA. This assayhas been validated pursuant to the CLIAregulations and is used for clinical purposes.This test was performed at:[email or web address], [id number] [place] [address] ID Date Data Source [id number] 03/25/2019 05:10:00 PM EDT [facility] Name Value Range Interpretation Code Description Data Supporting Source(s) Document(s ) Lyme Screen Negative NA [facility] IgG [facility] Positive or equivocal results are automa tically reflexed to confirmatory testing.A negative result does not exclude infecti on. If clinically warranted, repeat testing in 4 to 6 weeks. Lyme Screen IgM Negative NA [facility] ID Date Data Source [id number] 03/25/2019 12:03:00 PM EDT [facility] Name Value Range Interpretation Code Description Data Supporting Source(s) Document(s ) Troponin- <0.03 <=0.05 NO [facility] I ng/mL [facility] ID Date Data Source [id number] 03/25/2019 12:01:00 PM EDT [facility] Name Value Range Interpretation Description Data Sup porting Code Source(s) Document(s ) Magnesium 2.4 mg/dL 1.6-2.6 NO [facility] ID Date Data Source [id number] 03/25/2019 12:01:00 PM EDT [facility] Name Value Range Interpretation Description Data Sup porting Code Source(s) Document(s ) Glucose Lvl 101 65-99 [place] mg/dL [facility] BUN 32.0 6.0-20.0 HI [facility] mg/dL [facility] Creatinine 6.54 0.40-1.0 HI [facility] mg/dL 0 [facility] BUN/Creat 4.9 7.0-29.0 LO [facility] Ratio ratio [facility] Sodium Lvl 138 136-145 NO [facility] mmol/L [facility] Potassium Lvl 4.1 3.5-5.1 NO [facility] mmol/L [facility] Chloride 94 98-107 LO [place] mmol/L [facility] CO2 34 23-29 [place] mmol/L [facility] AGAP 10 5-15 [place] [facility] Calcium Lvl 8.9 8.6-10.0 NO [place] mg/dL [facility] Total Protein 7.7 6.0-8.3 NO [place] gm/dL [facility] Albumin Lvl 3.8 3.5-5.0 NO [facility] gm/dL [facility] Glob 3.9 2.0-4.5 NO [place] gm/dL [facility] A/G Ratio 1.0 1.0-2.2 NO [place] ratio [facility] Bili Total 0.9 0.3-1.2 NO [place] mg/dL [facility] Alk Phos 52 IU/L 38-126 NO [facility] AST 12 IU/L 15-41 LO [facility] ALT 7 IU/L 7-40 NO [facility] ID Date Data Source [id number] 03/25/2019 12:00:00 PM EDT [facility] Name Value Range Interpretation Description Data Sup porting Code Source(s) Document(s ) Lactic Acid 1.1 mmol/L <=2.0 NO [place] Lvl [facility] ID Date Data Source [id number] 03/25/2019 11:57:00 AM EDT [facility] Name Value Range Interpretation Description Data Sup porting Code Source(s) Document(s ) WBC 5.3 4.0-10.5 NO [place] x10(3)/[facility] RBC 3.85 3.80-5.20 NO [place] x10(6)/[facility] Hgb 13.2 11.4-15.1 NO [place] gm/dL [facility] Hct 39.6 % 36.0-46.0 NO [facility] MCV 103 fL 80-98 [facility] MCH 34.3 pg 26.0-34.0 [facility] MCHC 33.4 32.0-36.0 NO [place] gm/dL [facility] RDW 15.0 % 11.0-15.0 NO [facility] Platelet 127 150-400 [facility] MPV 8.2 fL 8.5-13.0 [facility] ID Date Data Source [id number] 03/25/2019 11:57:00 AM EDT [facility] Name Value Range Interpretation Description Data Sup porting Code Source(s) Document(s ) Neut Auto 62.2 % 50.0-80.0 [facility] Lymph Auto 19.3 % 14.0-44.0 [facility] [place] Auto 8.6 % 0.0-12.0 [facility] Eos Auto 9.0 % 0.0-7.0 [facility] Baso Auto 0.9 % 0.0-3.0 [facility] Neut 3.3 2.0-8.4 [facility] Lymph 1.0 0.6-4.8 NO [facility] Absolute x10(3)/[facility] [place] 0.5 0.0-1.1 NO [place] [facility] x10(3)/[facility] Eos Absolute 0.5 0.0-0.5 [facility] Baso 0.0 0.0-0.3 NO [facility] Absolute x10(3)/[facility] ID Date Data Source [id number] 03/25/2019 11:57:00 AM EDT [facility] Name Value Range Interpretation Code Description Data Renae rce(s) Supporting Document(s ) INR 1.1 ratio 0.9-1.2 NO [facility] Indications INRProphylaxis of venous thromo-embolism: Non-hip surgery..... ..........................1.5 - 2.5 Hip surgery................................. ..2.0 - 3.0Deep Vein Thrombosis or Pulmonary Embolism........2.0 - 3.0Prevention of s ystemic embolism in valvular heart disease, tissue prosthetic heart valvesor acute PA.......................................2.0 - 3.5Prevention of embolism in mechanical heartvalves or recurrent systemic embolism.............3.0 - 4.5 PT 12.5 second(s) 10.2-12.9 NO [facility] ID Date Data Source [id number] 03/25/2019 11:54:00 AM EDT [facility] Added by Discern Rule GLB_ADD_GFR_CMP Name Value Range Interpretation Code Description Data Renae rce(s) Supporting Document(s ) eGFR-AA 8 >=60 LO [facility] mL/min/1.[address] eGFR-LORIE 7 >=60 LO [facility] mL/min/1.[address] ID Date Data Source [id number] 03/21/2019 09:36:00 AM EDT [facility] Name Value Range Interpretation Code Description Data Renae rce(s) Supporting Document(s ) PT 12.6 10.2-12.[address] [facility]() [facility] INR 1.1 ratio 0.9-1.2 [facility] Indications INRProphylaxis of venous thromo-embolism: Non-hip surgery..... ..........................1.5 - 2.5 Hip surgery................................. ..2.0 - 3.0Deep Vein Thrombosis or Pulmonary Embolism........2.0 - 3.0Prevention of s ystemic embolism in valvular heart disease, tissue prosthetic heart valvesor acute PA.......................................2.0 - 3.5Prevention of embolism in mechanical heartvalves or recurrent systemic embolism.............3.0 - 4.5 APTT 34.6 second(s) 27.4-38.2 NO [facility] ID Date Data Source [id number] 03/21/2019 09:22:00 AM EDT [facility] Name Value Range Interpretation Description Data Sup porting Code Source(s) Document(s ) WBC 5.5 4.0-10.5 NO [facility] x10(3)/[facility] RBC 4.06 3.80-5.20 NO [place] x10(6)/[facility] Hgb 14.3 11.4-15.1 NO [place] gm/dL [facility] Hct 41.3 % 36.0-46.0 NO [facility] MCV 102 fL 80-98 [facility] MCH 35.4 pg 26.0-34.0 [facility] MCHC 34.7 32.0-36.0 [place] gm/dL [facility] RDW 14.9 % 11.0-15.0 NO [facility] Platelet 131 150-400 [facility] x10(3)/[facility] MPV 8.3 fL 8.5-13.0 [facility] ID Date Data Source [id number] 10/21/2018 06:40:00 AM EDT [facility] Name Value Range Interpretation Description Data Sup porting Code Source(s) Document(s ) Segs 92 % 50-80 [facility] Band 0 % 0-2 [facility] Neutr Absolute 10.8 2.0-8.4 HI [facility] x10(3)/[facility] Lymph 4 % 14-44 [facility] Monocyte 4 % 0-12 [facility] Eos 0 % 0-7 [facility] Basophil 0 % 0-3 [facility] RBC Morph Normocyt [facility] Anisocyte NO [facility] Macrocyte NO [facility] Elliptocyte UN [facility] Hypochrom UN [facility] Plt Estimate NO [facility] Manual Diff added by Discern Rule GLB_CB C_AUTO_REFLEX ID Date Data Source [id number] 10/21/2018 06:05:00 AM EDT [facility] Name Value Range Interpretation Code Description Data Renae rce(s) Supporting Document(s ) eGFR-AA 11 >=60 LO [facility] mL/min/1.[address] Added by Discern Rule GLB_ADD_GFR_BMP eGFR-LORIE 9 mL/min/1.73m2 >=60 LO [facility] Added by Discern Rule GLB_ADD_GFR_BMP ID Date Data Source [id number] 10/21/2018 06:05:00 AM EDT [facility] Name Value Range Interpretation Description Data Sup porting Code Source(s) Document(s ) Magnesium 2.3 mg/dL 1.6-2.6 NO [facility] ID Date Data Source [id number] 10/21/2018 06:05:00 AM EDT [facility] Name Value Range Interpretation Description Data Sup porting Code Source(s) Document(s ) Glucose Lvl 334 65-99 [place] mg/dL [facility] BUN 66.0 6.0-20.0 [place] mg/dL [facility] Creatinine 5.03 0.40-1.0 [place] mg/dL 0 [facility] BUN/Creat 13.1 7.0-29.0 [place] Ratio ratio [facility] Sodium Lvl 136 136-145 [place] mmol/L [facility] Potassium Lvl 4.6 3.5-5.1 NO [place] mmol/L [facility] Chloride 93 98-107 [place] mmol/L [facility] CO2 28 23-29 [place] mmol/L [facility] AGAP 15 5-15 NO [facility] Calcium Lvl 9.5 8.6-10.0 NO [place] mg/dL [facility] ID Date Data Source [id number] 10/21/2018 06:00:00 AM EDT [facility] Name Value Range Interpretation Description Data Sup porting Code Source(s) Document(s ) WBC 11.7 4.0-10.5 [place] x10(3)/[facility] RBC 3.77 3.80-5.20 [place] x10(6)/[facility] Hgb 12.9 11.4-15.1 [place] gm/dL [facility] Hct 38.8 % 36.0-46.0 NO [facility] MCV 103 fL 80-98 [facility] MCH 34.1 pg 26.0-34.0 [facility] MCHC 33.1 32.0-36.0 NO [place] gm/dL [facility] RDW 15.0 % 11.0-15.0 NO [facility] Platelet 155 150-400 [place] x10(3)/[facility] MPV 8.5 fL 8.5-13.0 NO [facility] ID Date Data Source [id number] 10/20/2018 06:04:00 AM EDT [facility] Name Value Range Interpretation Description Data Sup porting Code Source(s) Document(s ) Segs 91 % 50-80 [facility] Band 0 % 0-2 NO [facility] Neutr 8.4 2.0-8.4 NO [place] Absolute x10(3)/[facility] Lymph 7 % 14-44 LO [facility] Monocyte 2 % 0-12 NO [facility] Eos 0 % 0-7 NO [facility] Basophil 0 % 0-3 NO [facility] RBC Morph Normocyt AB [facility] /chrom [facility] Macrocyte NA [facility] Hypochrom NA [facility] Plt Estimate NO [facility] Manual Diff added by Discern Rule GLB_CB C_AUTO_REFLEX ID Date Data Source [id number] 10/20/2018 06:02:00 AM EDT [facility] Name Value Range Interpretation Description Data Sup porting Code Source(s) Document(s ) WBC 9.2 4.0-10.5 [place] x10(3)/[facility] RBC 3.83 3.80-5.20 [place] x10(6)/[facility] Hgb 13.0 11.4-15.1 [place] gm/dL [facility] Hct 38.5 % 36.0-46.0 NO [facility] MCV 100 fL 80-98 HI [facility] MCH 33.9 pg 26.0-34.0 NO [facility] MCHC 33.8 32.0-36.0 [place] gm/dL [facility] RDW 15.0 % 11.0-15.0 NO [facility] Platelet 147 150-400 [place] x10(3)/[facility] MPV 8.2 fL 8.5-13.0 [place] [facility] ID Date Data Source [id number] 10/20/2018 05:54:00 AM EDT [facility] Name Value Range Interpretation Description Data Sup porting Code Source(s) Document(s ) Magnesium 2.0 mg/dL 1.6-2.6 [facility] ID Date Data Source [id number] 10/20/2018 05:54:00 AM EDT [facility] Name Value Range Interpretation Description Data Sup porting Code Source(s) Document(s ) Glucose Lvl 230 65-99 [place] mg/dL [facility] BUN 32.0 6.0-20.0 [place] mg/dL [facility] Creatinine 3.92 0.40-1.0 [place] mg/dL 0 [facility] BUN/Creat 8.2 7.0-29.0 [place] Ratio ratio [facility] Sodium Lvl 135 136-145 [place] mmol/L [facility] Potassium Lvl 4.7 3.5-5.1 NO [place] mmol/L [facility] Chloride 92 98-107 [place] mmol/L [facility] CO2 30 23-29 [place] mmol/L [facility] AGAP 13 5-15 [place] [facility] Calcium Lvl 8.8 8.6-10.0 NO [place] mg/dL [facility] Total Protein 7.0 6.0-8.3 NO [place] gm/dL [facility] Albumin Lvl 3.5 3.5-5.0 NO [place] gm/dL [facility] Glob 3.5 2.0-4.5 NO [place] gm/dL [facility] A/G Ratio 1.0 1.0-2.2 NO [place] ratio [facility] Bili Total 1.1 0.3-1.2 [place] mg/dL [facility] Alk Phos 60 IU/L 38-126 NO [facility] AST 16 IU/L 15-41 NO [facility] ALT 10 IU/L 7-40 NO [facility] ID Date Data Source [id number] 10/20/2018 05:47:00 AM EDT [facility] Name Value Range Interpretation Code Description Data Renae rce(s) Supporting Document(s ) eGFR-AA 14 >=60 [facility] mL/min/1.[address] [place] [address] Added by Discern Rule GLB_ADD_GFR_CMP eGFR-LORIE 12 mL/min/1.73m2 >=60 [facility] Added by Discern Rule GLB_ADD_GFR_CMP ID Date Data Source [id number] 10/24/2018 04:00:00 PM EDT [facility] 1965 1 [phone] Microbiology - Blood Cultures PROCEDURE: Culture,Blood BloodBODY SITE:COLLECTED DATE/TIME: 10/19/2018 13:03 EDT RECEIVED DATE/T ROLANDO: 10/19/2018 13:16 EDTSTART DATE/TIME: 10/19/2018 13:17 EDT FREE T EXT SOURCE:ORDERING PHYSICIAN: Natalee Calix DO FINAL REPORTSFinal Repo rt []Reported Date/Time: 10/24/2018 16:00 EDTNo growth at 5 days. PRELIMINARY R EPORTSPreliminary Report [] Reported Date/Time: 10/23/2018 16:00 EDTNo growth a t 4 days.Preliminary Report []Reported Date/Time: 10/22/2018 16:00 EDTNo growth a t 3 days. Preliminary Report []Reported Date/Time: 10/21/2018 16:00 EDTNo growth a t 2 days. Preliminary Report []Reported Date/Time: 10/20/2018 16:01 EDTNo growth a t 1 day.Preliminary Report []Reported Date/Time: 10/20/2018 08:01 EDTBlood cultu re incubating < or = 24 hours; negative to date Name Value Range Interpretation Code Description Data Renae rce(s) Supporting Document(s ) ID Date Data Source [id number] 10/19/2018 01:37:00 PM EDT [facility] Name Value Range Interpretation Description Data Sup porting Code Source(s) Document(s ) Lactic Acid 1.6 mmol/L <=2.0 NO [facility] ID Date Data Source [id number] 10/24/2018 04:00:00 PM EDT [facility] 1965 1 [phone] Microbiology - Blood Cultures PROCEDURE: Culture,Blood BloodBODY SITE:COLLECTED DATE/TIME: 10/19/2018 12:46 EDT RECEIVED DATE/T ROLANDO: 10/19/2018 13:16 EDTSTART DATE/TIME: 10/19/2018 13:16 EDT FREE T EXT SOURCE:ORDERING PHYSICIAN: Natalee Calix DO FINAL REPORTSFinal Repo rt []Reported Date/Time: 10/24/2018 16:00 EDTNo growth at 5 days. PRELIMINARY R EPORTSPreliminary Report [] Reported Date/Time: 10/23/2018 16:00 EDTNo growth a t 4 days.Preliminary Report []Reported Date/Time: 10/22/2018 16:00 EDTNo growth a t 3 days. Preliminary Report []Reported Date/Time: 10/21/2018 16:00 EDTNo growth a t 2 days. Preliminary Report []Reported Date/Time: 10/20/2018 16:01 EDTNo growth a t 1 day.Preliminary Report []Reported Date/Time: 10/20/2018 08:01 EDTBlood cultu re incubating < or = 24 hours; negative to date Name Value Range Interpretation Code Description Data Renae rce(s) Supporting Document(s ) ID Date Data Source [id number] 10/19/2018 01:42:00 PM EDT [facility] Name Value Range Interpretation Code Description Data Supporting Source(s) Document(s ) Troponin- <0.03 <=0.05 [place] I ng/mL [facility] ID Date Data Source [id number] 10/19/2018 01:40:00 PM EDT [facility] Name Value Range Interpretation Description Data Sup porting Code Source(s) Document(s ) Glucose Lvl 141 65-99 [place] mg/dL [facility] BUN 19.0 6.0-20.0 NO [place] mg/dL [facility] Creatinine 3.01 0.40-1.0 [place] mg/dL 0 [facility] BUN/Creat 6.3 7.0-29.0 [place] Ratio ratio [facility] Sodium Lvl 136 136-145 NO [place] mmol/L [facility] Potassium Lvl 4.3 3.5-5.1 NO [place] mmol/L [facility] Chloride 91 98-107 [place] mmol/L [facility] CO2 34 23-29 [place] mmol/L [facility] AGAP 12 5-15 [place] [facility] Calcium Lvl 8.7 8.6-10.0 NO [place] mg/dL [facility] Total Protein 7.2 6.0-8.3 NO [place] gm/dL [facility] Albumin Lvl 3.7 3.5-5.0 NO [place] gm/dL [facility] Glob 3.5 2.0-4.5 NO [place] gm/dL [facility] A/G Ratio 1.1 1.0-2.2 [place] ratio [facility] Bili Total 1.2 0.3-1.2 NO [facility] mg/dL [facility] Alk Phos 56 IU/L 38-126 NO [facility] AST 16 IU/L 15-41 [facility] ALT 8 IU/L 7-40 [facility] ID Date Data Source [id number] 10/19/2018 01:32:00 PM EDT [facility] Name Value Range Interpretation Code Description Data Renae rce(s) Supporting Document(s ) eGFR-AA 20 >=60 [facility] mL/min/[address] Added by Discern Rule GLB_ADD_GFR_CMP eGFR-LORIE 16 mL/min/1.73m2 >=60 [facility] Added by Discern Rule GLB_ADD_GFR_CMP ID Date Data Source [id number] 10/19/2018 01:31:00 PM EDT [facility] Name Value Range Interpretation Code Description Data Renae rce(s) Supporting Document(s ) APTT 30.0 27.4-38.2 [facility] ID Date Data Source [id number] 10/19/2018 01:31:00 PM EDT [facility] Name Value Range Interpretation Code Description Data Renae rce(s) Supporting Document(s ) INR 1.1 ratio 0.9-1.2 [facility] PT 13.3 10.2-12.9 [facility] hospital Indications INRProphylaxis ofvenous thromo-embolism: Non-hipsurgery...... .........................1.5 - 2.5 Hipsurgery.............................. .....2.0 - 3.0Deep VeinThrombosis or Pulmonary Embolism........2.0 - 3.0Preve ntion ofsystemic embolism in valvularheart disease, tissue prosthetic heartvalvesor acute PA...................................... .2.0 -3.5Prevention of embolism in mechanical heartvalves or recurrentsystemic embolis m.............3.0 - 4.5 ID Date Data Source [id number] 10/19/2018 01:20:00 PM EDT [facility] Name Value Range Interpretation Description Data Sup porting Code Source(s) Document(s ) WBC 7.5 4.0-10.5 [place] x10(3)/[facility] RBC 3.72 3.80-5.20 [place] x10(6)/[facility] Hgb 12.6 11.4-15.1 [place] gm/dL [facility] Hct 38.0 % 36.0-46.0 NO [facility] MCV 102 fL 80-98 HI [facility] MCH 33.9 pg 26.0-34.0 NO [facility] MCHC 33.1 32.0-36.0 NO [place] gm/dL [facility] RDW 15.0 % 11.0-15.0 [facility] Platelet 144 150-400 [facility] MPV 8.0 fL 8.5-13.0 LO [facility] ID Date Data Source [id number] 10/19/2018 01:20:00 PM EDT [facility] Name Value Range Interpretation Description Data Sup porting Code Source(s) Document(s ) Neut Auto 71.9 % 50.0-80.0 NO [facility] Lymph Auto 16.2 % 14.0-44.0 NO [facility] [place] Auto 6.7 % 0.0-12.0 NO [facility] Eos Auto 4.3 % 0.0-7.0 NO [facility] Baso Auto 0.9 % 0.0-3.0 NO [facility] Neut 5.4 2.0-8.4 NO [place] Absolute x10(3)/[facility] Lymph 1.2 0.6-4.8 NO [place] Absolute x10(3)/[facility] [place] 0.5 0.0-1.1 NO [place] Absolute x10(3)/[facility] Eos Absolute 0.3 0.0-0.5 NO [place] x10(3)/[facility] Baso 0.1 0.0-0.3 NO [place] Absolute x10(3)/[facility] ID Date Data Source [id number] 10/08/2018 04:47:00 PM EDT [facility] Name Value Range Interpretation Description Data Sup porting Code Source(s) Document(s ) Glucose Lvl 112 65-99 [place] mg/dL [facility] BUN 45.0 6.0-20.0 [place] mg/dL [facility] Creatinine 6.83 0.40-1.0 [place] mg/dL 0 [facility] BUN/Creat 6.6 7.0-29.0 [place] Ratio ratio [facility] Sodium Lvl 138 136-145 [place] mmol/L [facility] Potassium Lvl 4.3 3.5-5.1 NO [place] mmol/L [facility] Chloride 99 98-107 [place] mmol/L [facility] CO2 27 23-29 [place] mmol/L [facility] AGAP 12 5-15 [place] [facility] Calcium Lvl 9.7 8.6-10.0 [place] mg/dL [facility] Total Protein 6.8 6.0-8.3 [place] gm/dL [facility] Albumin Lvl 3.5 3.5-5.0 NO [place] gm/dL [facility] Glob 3.3 2.0-4.5 NO [place] gm/dL [facility] A/G Ratio 1.1 1.0-2.2 [place] ratio [facility] Bili Total 0.8 0.3-1.2 [place] mg/dL [facility] Alk Phos 51 IU/L 38-126 NO [facility] AST 9 IU/L 15-41 LO [facility] ALT 6 IU/L 7-40 [facility] ID Date Data Source [id number] 10/08/2018 04:40:00 PM EDT [facility] Name Value Range Interpretation Code Description Data Renae rce(s) Supporting Document(s ) eGFR-AA 8 >=60 [facility] mL/min/1.[address] Added by Discern Rule GLB_ADD_GFR_CMP eGFR-LORIE 6 mL/min/1.73m2 >=60 LO [facility] Added by Discern Rule GLB_ADD_GFR_CMP ID Date Data Source [id number] 10/08/2018 04:35:00 PM EDT [facility] Name Value Range Interpretation Code Description Data Renae rce(s) Supporting Document(s ) INR 1.0 ratio 0.9-1.2 NO [facility] PT 12.7 10.2-12.[address] [facility](s) [facility] Indications INRProphylaxis ofvenous thromo-embolism: Non-hipsurgery...... .........................1.5 - 2.5 Hipsurgery.............................. .....2.0 - 3.0Deep VeinThrombosis or Pulmonary Embolism........2.0 - 3.0Preve ntion ofsystemic embolism in valvularheart disease, tissue prosthetic heartvalvesor acute PA...................................... .2.0 -3.5Prevention of embolism in mechanical heartvalves or recurrentsystemic embolis m.............3.0 - 4.5 ID Date Data Source [id number] 10/08/2018 04:30:00 PM EDT [facility] Name Value Range Interpretation Description Data Sup porting Code Source(s) Document(s ) WBC 7.3 4.0-10.5 NO [place] x10(3)/[facility] RBC 3.45 3.80-5.20 [place] x10(6)/[facility] Hgb 11.9 11.4-15.1 NO [place] gm/dL [facility] Hct 34.7 % 36.0-46.0 [facility] MCV 101 fL 80-98 [facility] MCH 34.4 pg 26.0-34.0 [facility] MCHC 34.2 32.0-36.0 NO [place] gm/dL [facility] RDW 15.1 % 11.0-15.0 [facility] Platelet 133 150-400 LO [facility] x10(3)/[facility] MPV 8.3 fL 8.5-13.0 [facility] pt in testing, ID Date Data Source [id number] 10/08/2018 04:30:00 PM EDT [facility] Name Value Range Interpretation Description Data Sup porting Code Source(s) Document(s ) Neut Auto 57.5 % 50.0-80.0 NO [facility] Lymph Auto 25.5 % 14.0-44.0 [facility] [place] Auto 10.1 % 0.0-12.0 NO [facility] Eos Auto 6.2 % 0.0-7.0 NO [facility] Baso Auto 0.7 % 0.0-3.0 NO [facility] Neut 4.2 2.0-8.4 NO [place] Absolute x10(3)/[facility] Lymph 1.9 0.6-4.8 NO [place] Absolute x10(3)/[facility] [place] 0.7 0.0-1.1 NO [place] Absolute x10(3)/[facility] Eos Absolute 0.5 0.0-0.5 NO [place] x10(3)/[facility] Baso 0.1 0.0-0.3 NO [place] Absolute x10(3)/[facility] ID Date Data Source [id number] 07/26/2018 06:18:00 PM EST [facility] Name Value Range Interpretation Description Data Sup porting Code Source(s) Document(s ) Glucose Lvl 127 65-99 [place] mg/dL [facility] BUN 30.0 6.0-20.0 [place] mg/dL [facility] Creatinine 4.96 0.40-1.0 [place] mg/dL 0 [facility] BUN/Creat 6.0 7.0-29.0 [place] Ratio ratio [facility] Sodium Lvl 139 136-145 [place] mmol/L [facility] Potassium Lvl 4.7 3.5-5.1 NO [place] mmol/L [facility] Chloride 96 98-107 [place] mmol/L [facility] CO2 31 23-29 [place] mmol/L [facility] AGAP 12 5-15 [facility] Calcium Lvl 9.5 8.6-10.0 NO [place] mg/dL [facility] Total Protein 6.9 6.0-8.3 NO [place] gm/dL [facility] Albumin Lvl 3.7 3.5-5.0 NO [place] gm/dL [facility] Glob 3.2 2.0-4.5 NO [place] gm/dL [facility] A/G Ratio 1.2 1.0-2.2 NO [place] ratio [facility] Bili Total 0.6 0.3-1.2 NO [place] mg/dL [facility] Alk Phos 60 IU/L 38-126 NO [facility] AST 11 IU/L 15-41 LO [facility] ALT 9 IU/L 7-40 NO [facility] ID Date Data Source [id number] 07/26/2018 06:18:00 PM EST [place] [facility] Name Value Range Interpretation Code Description Data Renae rce(s) Supporting Document(s ) eGFR-AA 11 >=60 LO [facility] mL/min/1.7 - [address] eGFR-LORIE 9 >=60 LO [facility] mL/min/1.7 - [address] Added by Discern Rule GLB_ADD_GFR_CMP ID Date Data Source [id number] 07/26/2018 06:31:00 PM EST [facility] Name Value Range Interpretation Code Description Data Supporting Source(s) Document(s ) Chol 150 mg/dL <=199 NO [facility] HDL Chol 38 mg/dL >=40 LO [facility] Chol/HDL 4 ratio NA [facility] Trig 74 mg/dL 72-175 NO [facility] LDL 98 mg/dL 10-100 NO [facility] Procedure Social History Code Duration Value Status Description Data Source(s ) Smoking 02/05/2020 Ex-smoker completed Ex-smoker [facility] - 12:59:28 PM EDT (finding) (finding) [facility] Smoking 04/17/2019 Ex-smoker completed Ex-smoker [facility] - 12:43:43 PM EDT (finding) (finding) [facility] Smoking 04/17/2019 Ex-smoker completed Ex-smoker [facility] - 12:43:43 PM EDT (finding) (finding) [facility] Smoking 04/17/2019 Ex-smoker completed Ex-smoker [facility] - 12:43:43 PM EDT (finding) (finding) [facility] Smoking 04/17/2019 Ex-smoker completed Ex-smoker [facility] - 12:43:43 PM EDT (finding) (finding) [facility] Smoking 04/17/2019 Ex-smoker completed Ex-smoker [facility] - 12:43:43 PM EDT (finding) (finding) [facility] Smoking 04/17/2019 Ex-smoker completed Ex-smoker [facility] - 12:43:43 PM EDT (finding) (finding) [facility] Smoking 04/17/2019 Ex-smoker completed Ex-smoker [facility] - 12:43:43 PM EDT (finding) (finding) [facility] Smoking 04/17/2019 Ex-smoker completed Ex-smoker [facility] - 12:43:43 PM EDT (finding) (finding) [facility] Smoking 04/17/2019 Ex-smoker completed Ex-smoker [facility] - 12:43:43 PM EDT (finding) (finding) [facility] Smoking 04/17/2019 Ex-smoker completed Ex-smoker [facility] - 12:43:43 PM EDT (finding) (finding) [facility] Smoking 04/17/2019 Ex-smoker completed Ex-smoker [facility] - 12:43:43 PM EDT (finding) (finding) [facility] Smoking 04/04/2019 Ex-smoker completed Ex-smoker [facility] - 03:24:36 PM EDT (finding) (finding) [facility] Smoking 04/04/2019 Ex-smoker completed Ex-smoker [facility] - 03:24:36 PM EDT (finding) (finding) [facility] Smoking 04/04/2019 Ex-smoker completed Ex-smoker [facility] - 03:24:36 PM EDT (finding) (finding) [facility] Smoking 04/04/2019 Ex-smoker completed Ex-smoker [facility] - 03:24:36 PM EDT (finding) (finding) [facility] Smoking 04/04/2019 Ex-smoker completed Ex-smoker [facility] - 03:24:36 PM EDT (finding) (finding) [facility] Smoking 04/04/2019 Ex-smoker completed Ex-smoker [facility] - 03:24:36 PM EDT (finding) (finding) [facility] Smoking 04/04/2019 Ex-smoker completed Ex-smoker [facility] - 03:24:36 PM EDT (finding) (finding) [facility] Smoking 03/25/2019 Ex-smoker completed Ex-smoker [facility] - 10:08:08 AM EDT (finding) (finding) [facility] Smoking 03/25/2019 Ex-smoker completed Ex-smoker [facility] - 10:08:08 AM EDT (finding) (finding) [facility] Smoking 03/25/2019 Ex-smoker completed Ex-smoker [facility] - 10:08:08 AM EDT (finding) (finding) [facility] Smoking 03/25/2019 Ex-smoker completed Ex-smoker [facility] - 10:08:08 AM EDT (finding) (finding) [facility] Smoking 03/25/2019 Ex-smoker completed Ex-smoker [facility] - 10:08:08 AM EDT (finding) (finding) [facility] Smoking 03/25/2019 Ex-smoker completed Ex-smoker [facility] - 10:08:08 AM EDT (finding) (finding) [facility] Smoking 10/19/2018 Ex-smoker completed Ex-smoker [facility] - 12:41:02 PM EDT (finding) (finding) [facility] Smoking 10/19/2018 Ex-smoker completed Ex-smoker [facility] - 12:41:02 PM EDT (finding) (finding) [facility] Smoking 10/08/2018 Ex-smoker completed Ex-smoker [facility] - 12:54:36 PM EDT (finding) (finding) [facility] Smoking 10/08/2018 Ex-smoker completed Ex-smoker [facility] - 12:54:36 PM EDT (finding) (finding) [facility] Smoking Never smoker completed Never smoker [facility] [employer] on Home/[employer]viron[employer] UNK completed [place] [facility] - nt [facility] Alcohol (Use Alcohol Screen Below UNK [facility] Drink ocassionally Home/Environment UNK completed [facility] Alcohol (Use Alcohol Screen Below UNK completed [employer] [facility] Drink ocassionally Home/Environment UNK completed [facility] Alcohol (Use Alcohol Screen Below UNK completed [facility] Drink ocassionally Home/Environment UNK completed [facility] Alcohol (Use Alcohol Screen Below UNK completed [facility] Drink ocassionally Home/Environment UNK completed [facility] Alcohol (Use Alcohol Screen Below UNK completed [facility] Drink ocassionally Home/Environment UNK completed [facility] Alcohol (Use Alcohol Screen Below UNK completed [facility] Drink ocassionally Home/Environment UNK completed [facility] Alcohol (Use Alcohol Screen Below UNK completed [facility] Drink ocassionally Home/Environment UNK completed [facility] Alcohol (Use Alcohol Screen Below UNK completed [facility] Drink ocassionally Home/Environment UNK completed [facility] Alcohol (Use Alcohol Screen Below UNK completed [facility] Drink ocassionally Home/Environment UNK completed [facility] Alcohol (Use Alcohol Screen Below UNK completed [facility] Drink ocassionally Home/Environment UNK completed [facility] Alcohol (Use Alcohol Screen Below UNK completed [facility] Drink ocassionally Home/Environment UNK completed [facility] Alcohol (Use Alcohol Screen Below UNK [facility] Drink ocassionally Home/Environment UNK completed [facility] Alcohol (Use Alcohol Screen Below UNK completed [facility] Drink ocassionally Home/Environment UNK completed [facility] Alcohol (Use Alcohol Screen Below UNK completed [facility] Drink ocassionally Home/Environment UNK completed [facility] Alcohol (Use Alcohol Screen Below UNK completed [facility] Drink ocassionally Home/Environment UNK completed [facility] Alcohol (Use Alcohol Screen Below UNK completed [facility] Drink ocassionally Home/Environment UNK completed [facility] Alcohol (Use Alcohol Screen Below UNK completed [facility] Drink ocassionally Home/Environment UNK completed [facility] Alcohol (Use Alcohol Screen Below UNK completed [facility] Drink ocassionally Home/Environment UNK completed [facility] Alcohol (Use Alcohol Screen Below UNK completed [facility] Drink ocassionally Home/Environment UNK completed [facility] Alcohol (Use Alcohol Screen Below UNK completed [facility] Drink ocassionally Home/Environment UNK completed [facility] Alcohol (Use Alcohol Screen Below UNK completed [facility] Drink ocassionally Home/Environment UNK completed [facility] Alcohol (Use Alcohol Screen Below UNK completed [facility] Drink ocassionally Home/Environment UNK completed [facility] Alcohol (Use Alcohol Screen Below UNK completed [facility] Drink ocassionally Home/Environment UNK completed [facility] Alcohol (Use Alcohol Screen Below UNK completed [facility] Drink ocassionally Home/Environment UNK completed [facility] Alcohol (Use Alcohol Screen Below UNK completed [facility] Drink ocassionally Home/Environment UNK completed [facility] Alcohol UNK completed [facility] Drink ocassionally Home/Environment UNK completed [facility] Alcohol UNK completed [facility] Drink ocassionally Home/Environment UNK completed [facility] Alcohol UNK completed [facility] Drink ocassionally Home/Environment UNK completed [facility] Alcohol UNK completed [facility] Drink ocassionally Smoking Ex-smoker (finding) completed Ex-smoker (findi ng) [facility] Home/Environment UNK completed [facility] Tobacco UNK completed [facility] Quit smoking 6 years ago Alcohol UNK completed [facility] Drink ocassionally Vital Signs ID Date Data Source UNK Name Value Range Interpretation Description Data Sour ce(s) Code Diastolic blood 72 {} Normal (applies to 72 {} [facility] pressure non-[facility] Systolic blood 140 {} Normal (applies to 140 {} [place] pressure non-numeric [facility] results) [facility] First Respiration 18.0000 {} Normal (applies to 18.0000 {} Jennings rate Set non-numeric [facility] Health results) [facility] Heart rate 93.0000 {} Normal (applies to 93.0000 {} Westch miesha non-numeric [facility] Health results) [facility] Body temperature 97.5000 {} Normal (applies to 97.5000 {} Jennings non-numeric [facility] results) [facility] Bioceptive wt - obtain Normal (applies to {} [place] alfonso non-numeric [facility] results) [facility] weight - kg 102.3000 {} Normal (applies to 102.3000 {} Evert [place] non-numeric [facility] results) [facility] Vital Signs ed md aware ed aware Miky kierra [facility] Reported To - [facility] Mean blood 61 mm[Hg] 61 mm[Hg] [employer] pressure by - Nathalia Noninvasive [facility] Diastolic blood 45 mm[Hg] 60-90 mmHg 45 mm[Hg] [facility] ealth pressure - Nathalia [facility] Systolic blood 94 mm[Hg] 90-130 Normal (applies to 94 mm[Hg] [facility] MedLink pressure mmHg non-numeric - Nathalia results) [facility] Respiratory rate 17 br/min 14-20 Normal (applies to 17 br/min [facility] br/min non-numeric - Nathalia results) [facility] Heart rate 87 bpm 60-100 bpm Normal (applies to 87 bpm [facility] PO[employer] non-numeric - [place] results) [facility] Oxygen saturation 98 % 94-100 % Normal (applies to 98 % [employer] in Blood non-numeric - [place]alia Postductal by results) [facility] nter Respiratory rate 18 br/min 14-20 Normal (applies to 18 br/min [employer] [facility] br/min non-numeric - [place] results) [facility] Heart rate 80 bpm 60-100 bpm Normal (applies to 80 bpm [employer] Peripheral artery non-numeric - Juliette ar by palpation results) [facility] Oral temperature 98.9 [degF] 96.4-99.1 Normal (applies to 98.9 [degF ] [facility] DegF non-numeric - Nathalia results) [facility] Oral temperature 98.9 [degF] 96.4-99.1 Normal (applies to 98.9 [degF ] [facility] DegF non-numeric - [place]athalia results) [facility] Mean blood 59 mm[Hg] 59 mm[Hg] [facility] pressure by - [place] Noninvasive [facility] Diastolic blood 39 mm[Hg] 60-90 mmHg 39 mm[Hg] [facility] pressure - [place] [facility] Systolic blood 100 mm[Hg] 90-130 Normal (applies to 100 mm[Hg] [facility] pressure mmHg non-numeric - [place] results) [facility] Respiratory rate 15 br/min 14-20 Normal (applies to 15 br/min [facility] br/min non-numeric - [place] results) [facility] Heart rate 91 bpm 60-100 bpm Normal (applies to 91 bpm [facility] non-numeric - [place] results) [facility] Vital Signs ed md price ed md albert Bolaños [facility] Reported To - Nathalia [facility] Oxygen saturation 97 % 94-100 % Normal (applies to 97 % [facility] in Blood non-numeric - N[place]alia Postductal by results) [facility] Ce nter Mean blood 59 mm[Hg] 59 mm[Hg] [facility] pressure by - [place] Noninvasive [facility] Diastolic blood 39 mm[Hg] 60-90 mmHg 39 mm[Hg] [facility] pressure - [place] [facility] Systolic blood 100 mm[Hg] 90-130 Normal (applies to 100 mm[Hg] [facility] pressure mmHg non-numeric - Nathalia results) [facility] Heart rate 94 bpm 60-100 bpm Normal (applies to 94 bpm [facility] non-numeric - [place] results) [facility] Oral temperature 98.9 [degF] 96.4-99.1 Normal (applies to 98.9 [degF ] [facility] DegF non-numeric - Nathalia results) [facility] Oxygen saturation 94 % 94-100 % Normal (applies to 94 % [facility] in Blood non-numeric - [place] Postductal by results) [facility] Ce nter Body mass index 36.14 kg/m2 36.14 kg/m2 [facility] (BMI) [Ratio] - [facility] Body weight 102 kg 102 kg [facility] Measured - [facility] Body height 168 cm 168 cm [facility] h - [facility] Body mass index 36.14 kg/m2 36.14 kg/m2 [facility] (BMI) [Ratio] - [facility] Oxygen therapy [facility] [Minimum Data - [place] Set] [facility] Mean blood 100 mm[Hg] 100 mm[Hg] [facility] pressure by - [place] Noninvasive [facility] Oxygen saturation 98 % 94-100 % Normal (applies to 98 % [facility] in Blood non-numeric - [place] Postductal by results) [facility] Medical nt Oxygen therapy [facility] [Minimum Data - [place] Set] [facility] Heart rate 80 bpm 60-100 bpm Normal (applies to 80 bpm [facility] non-numeric - [place] results) [facility] Respiratory rate 18 br/min 14-20 Normal (applies to 18 br/min [facility] br/min non-numeric - Nath[place] results) [facility] Diastolic blood 73 mm[Hg] 60-90 mmHg Normal (applies to 73 mm[Hg] [facility] pressure non-numeric - [place] results) [facility] Systolic blood 153 mm[Hg] 90-130 Above high normal 153 mm[Hg] [facility] pressure mmHg - N[place]alia [facility] Oral temperature 98.2 [degF] 96.4-99.1 Normal (applies to 98.2 [degF ] [facility] DegF non-numeric - [place] results) [facility] Glucose 154 mg/dL 65-100 Above high normal 154 mg/dL [facility] [Moles/volume] in mg/dL - [place] Capillary blood [place] by [facility] ter Mean blood 75 mm[Hg] 75 mm[Hg] [facility] pressure by - N[place] Noninvasive [facility] Oxygen saturation 98 % 94-100 % Normal (applies to 98 % [facility] in Blood non-numeric - [place] Postductal by results) [facility] Ce nter Diastolic blood 54 mm[Hg] 60-90 mmHg 54 mm[Hg] [facility] pressure - [place] [facility] Systolic blood 116 mm[Hg] 90-130 Normal (applies to 116 mm[Hg] [facility] pressure mmHg non-numeric - [place] results) [facility] Oxygen therapy Nukia Carson alth [Minimum Data - [place] Set] [facility] Heart rate 85 bpm 60-100 bpm Normal (applies to 85 bpm [facility] [employer] [facility] non-numeric - Nathalia results) [facility] Respiratory rate 18 br/min 14-20 Normal (applies to 18 br/min [employer] kingston[employer] Health br/min non-numeric - [place] results) [facility] Heart rate 78 bpm 60-100 bpm Normal (applies to 78 bpm [employer] [facility] non-numeric - Nathalia results) [facility] Respiratory rate 18 br/min 14-20 Normal (applies to 18 br/min [facility] br/min non-numeric - Nathalia results) [facility] Oxygen saturation 94 % 94-100 % Normal (applies to 94 % [facility] in Blood non-numeric - [place] Postductal by results) [facility] Ce nter Oxygen therapy Elvieashastacie Carson alth [Minimum Data - [place] Set] [facility] Blood pressure Elvieeast king[place]stacie alth measurement site - Nathalia [facility] Diastolic blood 63 mm[Hg] 60-90 mmHg Normal (applies to 63 mm[Hg] [facility] pressure non-numeric - Nathalia results) [facility] Systolic blood 129 mm[Hg] 90-130 Normal (applies to 129 mm[Hg] [facility] pressure mmHg non-numeric - [place] results) [facility] Mean blood 85 mm[Hg] 85 mm[Hg] [facility] pressure by - [place] Noninvasive [facility] Glucose 88 mg/dL 65-100 88 mg/dL [facility] [Moles/volume] in mg/dL - [place] Capillary blood [place] by [facility] ter Oral temperature 97.7 [degF] 96.4-99.1 Normal (applies to 97.7 [degF ] [facility] DegF non-numeric - [place] results) [facility] Glucose 88 mg/dL 65-100 Normal (applies to 88 mg/dL [facility]c e Health [Moles/volume] in mg/dL non-numeric - Juliette ar Capillary blood results) [place] by [facility] Efren ter Blood pressure [facility] alth measurement site - [facility] Blood pressure Nueast kingstonstacie alth measurement site - [facility] Oral temperature 98 [degF] 96.4-99.1 Normal (applies to 98 [degF] [facility] DegF non-numeric - Nathalia results) [facility] FIO2 21 % 21 % [facility] FIO2 21 % 21 % [facility] Heart rate 72 bpm 60-100 bpm Normal (applies to 72 bpm [facility] Peripheral artery non-numeric - [place] ar by palpation results) [facility] Heart rate 70 bpm 60-100 bpm Normal (applies to 70 bpm [facility] Peripheral artery non-numeric - [place] ar by palpation results) [facility] Heart rate 68 bpm 60-100 bpm Normal (applies to 68 bpm [facility] Peripheral artery non-numeric - Juliette ar by palpation results) [facility] Inhaled oxygen 2 L/min 2 L/min Randallce He alth flow rate - [facility] Oxygen Therapy Elvieeast king[place]stacie alth Activity - [facility] Inhaled oxygen 2 L/min 2 L/min Randallce He alth flow rate - [facility] Inhaled oxygen 2 L/min 2 L/min Randall He alth flow rate - [facility] Invasive Mean 98 mm[Hg] 98 mm[Hg] [facility] blood pressure - [facility] Invasive 65 mm[Hg] 60-90 mmHg Normal (applies to 65 mm[Hg] [facility] Diastolic blood non-numeric - Nathalia pressure results) [facility] Invasive Systolic 153 mm[Hg] 90-140 Above high normal 153 mm[Hg] [facility] blood pressure mmHg - [facility] Invasive Mean 92 mm[Hg] 92 mm[Hg] [facility] blood pressure - [facility] Invasive 63 mm[Hg] 60-90 mmHg Normal (applies to 63 mm[Hg] Health system Diastolic blood non-numeric - [place] pressure results) [facility] Invasive Systolic 144 mm[Hg] 90-140 Above high normal 144 mm[Hg] [facility] blood pressure mmHg - [facility] Invasive Mean 101 mm[Hg] 101 mm[Hg] [facility] blood pressure - [facility] Invasive 68 mm[Hg] 60-90 mmHg Normal (applies to 68 mm[Hg] Health system Diastolic blood non-numeric - Nathalia pressure results) [facility] Invasive Systolic 153 mm[Hg] 90-140 Above high normal 153 mm[Hg] [facility] blood pressure mmHg - [facility] FIO2 50 % 50 % [facility] Tympanic membrane 97 [degF] 97.9-100.6 Below low normal 97 [degF] N [facility] temperature DegF [facility] Usual Weight 121 kg 121 kg [facility] Body height 168 cm 168 cm [facility] Body mass index 40.11 kg/m2 40.11 kg/m2 [facility] (BMI) [Ratio] [facility] Daily Weight 113.2 kg 113.2 kg [facility] [place] Body Weight 59 kg 59 kg [facility] Daily Weight 113.2 kg 113.2 kg [facility] Heart rate 68 bpm 60-100 bpm Normal (applies to 68 bpm [facility] e Health Cardiac apex by non-numeric - [place] by Auscultation results) [facility] Body height 168 cm 168 cm [facility] Daily Weight 110.8 kg 110.8 kg [facility] Body height 168 cm 168 cm [facility] Heart rate 68 bpm 60-100 bpm Normal (applies to 68 bpm [facility] Cardiac apex by non-numeric - Nathalia by Auscultation results) [facility] Body mass index 39.33 kg/m2 39.33 kg/m2 [facility] (BMI) [Ratio] - [place] [facility] Body weight 111 kg 111 kg [facility] Measured - Nathalia [facility] Body mass index 39.33 kg/m2 39.33 kg/m2 [facility] (BMI) [Ratio] - Nathalia [facility] Heart rate 79 bpm 60-100 bpm Normal (applies to 79 bpm [facility] non-numeric - [place]athalia results) [facility] Mean blood 84 mm[Hg] 84 mm[Hg] [facility] pressure by - [place] Noninvasive [facility] Diastolic blood 69 mm[Hg] 60-90 mmHg Normal (applies to 69 mm[Hg] [facility] pressure non-numeric - [place]athalia results) [facility] Systolic blood 114 mm[Hg] 90-130 Normal (applies to 114 mm[Hg] Nu adam [facility] pressure mmHg non-numeric - Nathalia results) [facility] Oral temperature 98.1 [degF] 96.4-99.1 Normal (applies to 98.1 [degF ] [facility] DegF non-numeric - [place] results) [facility] Oxygen saturation 91 % 94-100 % 91 % [facility] in Blood - [place] Postductal by [facility] Ce nter Oxygen therapy Elvieseaford Alli alth [Minimum Data - Nathalia Set] [facility] Heart rate 80 bpm 60-100 bpm Normal (applies to 80 bpm [facility] non-numeric - [place] results) [facility] Oxygen therapy [facility] [Minimum Data - [place] Set] [facility] Oxygen Therapy [facility] alth Activity - [place] [facility] Oxygen saturation 94 % 94-100 % Normal (applies to 94 % [facility] in Blood non-numeric - [place] Postductal by results) [facility] Ce nter Respiratory rate 18 br/min 14-20 Normal (applies to 18 br/min [facility] br/min non-numeric - [place] results) [facility] Heart rate 80 bpm 60-100 bpm Normal (applies to 80 bpm [facility] non-numeric - [place] results) [facility] Inhaled oxygen 2.5 L/min 2.5 L/min Randallce He alth flow rate - Nathalia [facility] Oxygen saturation 97 % 94-100 % Normal (applies to 97 % [facility] in Blood non-numeric - N[place]alia Postductal by results) [facility] Medical nter Glucose 106 mg/dL 65-100 Above high normal 106 mg/dL [facility] [Moles/volume] in mg/dL - [place] Capillary blood [place] by [facility] Mean blood 85 mm[Hg] 85 mm[Hg] [facility] pressure by - [place] Noninvasive [facility] Respiratory rate 20 br/min 14-20 Normal (applies to 20 br/min [facility] br/min non-numeric - Nathalia results) [facility] Oral temperature 97.3 [degF] 96.4-99.1 Normal (applies to 97.3 [degF ] [facility] DegF non-numeric - [place] results) [facility] Diastolic blood 70 mm[Hg] 60-90 mmHg Normal (applies to 70 mm[Hg] [facility] pressure non-numeric - [place]athalia results) [facility] Systolic blood 117 mm[Hg] 90-130 Normal (applies to 117 mm[Hg] [facility] pressure mmHg non-numeric - [place] results) [facility] Inhaled oxygen 2 L/min 2 L/min Miky alth flow rate - Nathalia [facility] Oxygen therapy Elvieeast [place]acie alth [Minimum Data - [place] Set] [facility] Glucose 161 mg/dL 65-100 Above high normal 161 mg/dL [facility] [Moles/volume] in mg/dL - [place] Capillary blood [place] [facility] [address] [facility] Diastolic blood 81 mm[Hg] 60-90 mmHg Normal (applies to 81 mm[Hg] [facility] pressure non-numeric - [place] results) [facility] Systolic blood 138 mm[Hg] 90-130 Above high normal 138 mm[Hg] [facility] pressure mmHg - [place] [facility] Respiratory rate 20 br/min 14-20 Normal (applies to 20 br/min [facility] br/min non-numeric - [place] results) [facility] Mean blood 100 mm[Hg] 100 mm[Hg] [facility] pressure by [facility] Oral temperature 97.7 [degF] 96.4-99.1 Normal (applies to 97.7 [degF ] [facility] DegF non-numeric - [place] results) [facility] Inhaled oxygen 2 L/min 2 L/min Miky alth flow rate - [facility] Oxygen Therapy Nuvanstacie Carson alth Activity - [facility] Glucose 153 mg/dL 65-100 Above high normal 153 mg/dL [facility] [Moles/volume] in mg/dL [facility] Capillary blood [place] [facility] ter Blood pressure Nukia Carson alth measurement site - [facility] Blood pressure Nukia Carson alth measurement site - [facility] Oxygen Therapy Nukia Carson alth Activity - [facility] FIO2 40.00 % 40.00 % [facility] Blood pressure Nukia Carson alth measurement site - [facility] Axillary 96.8 [degF] 95.3-99 Normal (applies to 96.8 [degF] [facility] temperature DegF non-numeric - [place] results) [facility] FIO2 40.00 % 40.00 % [facility] FIO2 40.00 % 40.00 % [facility] Axillary 96.6 [degF] 95.3-99 Normal (applies to 96.6 [degF] [facility] temperature DegF non-numeric - Nathalia results) [facility] Daily Weight 107.72 kg 107.72 kg [facility] Body mass index 38.17 kg/m2 38.17 kg/m2 [facility] (BMI) [Ratio] [facility] Body height 168 cm 168 cm [facility] [place] Body Weight 59 kg 59 kg [facility] Usual Weight 115 kg 115 kg [facility] Axillary 97.1 [degF] 95.3-99 Normal (applies to 97.1 [degF] va nde [facility] temperature DegF non-numeric - Nathalia results) [facility] Vital Signs MD Kamron Bolaños [facility] Reported To - [facility] Rectal 100.6 [degF] 97.3-100 Above high normal 100.6 [degF] [facility] ance [facility] temperature DegF - [facility] Vital Signs MD Kamron Lundy [facility] Reported To - [facility] Vital Signs MD Kamron Lundy kia [facility] Hospitaldionicio h Reported To - [facility] Body mass index 38.17 kg/m2 38.17 kg/m2 [facility] (BMI) [Ratio] - [facility] Body weight 107.72 kg 107.72 kg [facility] Measured - [facility] Body height 168 cm 168 cm [facility] - [facility] Body mass index 38.17 kg/m2 38.17 kg/m2 [facility] (BMI) [Ratio] - [facility] Heart rate 73 bpm 60-100 bpm Normal (applies to 73 bpm [facility] Health non-numeric - [place] results) [facility] Oxygen saturation 92 % 94-100 % 92 % [facility] in Blood - [place] Postductal by [place] Pulse [facility]xim[facility] nter Oral temperature 97.7 [degF] 96.4-99.1 Normal (applies to 97.7 [degF ] [facility] DegF non-numeric - [place] results) [facility] Mean blood 93 mm[Hg] 93 mm[Hg] [facility] pressure by - [place] Noninvasive [facility] Respiratory rate 18 br/min 14-20 Normal (applies to 18 br/min [facility] br/min non-numeric - [place] results) [facility] Diastolic blood 75 mm[Hg] 60-90 mmHg Normal (applies to 75 mm[Hg] [facility] pressure non-numeric - [place] results) [facility] Systolic blood 127 mm[Hg] 90-130 Normal (applies to 127 mm[Hg] [facility] pressure mmHg non-numeric - [place] results) [facility] Heart rate 71 bpm 60-100 bpm Normal (applies to 71 bpm [facility] non-numeric - [place] results) [facility] Mean blood 87 mm[Hg] 87 mm[Hg] [facility] pressure by - [place] Noninvasive [facility] Oxygen saturation 100 % 94-100 % Normal (applies to 100 % [facility] in Blood non-numeric - [place] Postductal by results) [place] [facility] Diastolic blood 71 mm[Hg] 60-90 mmHg Normal (applies to 71 mm[Hg] [facility] pressure non-numeric - [place] results) [facility] Systolic blood 119 mm[Hg] 90-130 Normal (applies to 119 mm[Hg] [facility] pressure mmHg non-numeric - [place] results) [facility] Respiratory rate 18 br/min 14-20 Normal (applies to 18 br/min [facility] br/min non-numeric - [place] results) [facility] Oral temperature 97.3 [degF] 96.4-99.1 Normal (applies to 97.3 [degF ] [facility] DegF non-numeric - [place] results) [facility] Glucose 190 mg/dL 65-100 Above high normal 190 mg/dL [facility] [Moles/volume] in mg/dL - [place] Capillary blood [place] by [facility] ter Glucose 84 mg/dL 65-100 Normal (applies to 84 mg/dL [facility] [Moles/volume] in mg/dL non-numeric - [place] ar Capillary blood results) [place] [facility] ter Oxygen saturation 96 % 94-100 % Normal (applies to 96 % [facility] in Blood non-numeric - [place] Postductal by results) [place] [facility] Oral temperature 97.8 [degF] 96.4-99.1 Normal (applies to 97.8 [degF ] [facility] DegF non-numeric - [place] results) [facility] Mean blood 75 mm[Hg] 75 mm[Hg] [facility] pressure by - [place] Noninvasive [facility] Heart rate 67 bpm 60-100 bpm Normal (applies to 67 bpm [facility] e Health non-numeric - [place] results) [facility] Diastolic blood 60 mm[Hg] 60-90 mmHg Normal (applies to 60 mm[Hg] [facility] pressure non-numeric - [place] results) [facility] Systolic blood 106 mm[Hg] 90-130 Normal (applies to 106 mm[Hg] [facility] pressure mmHg non-numeric - [place] results) [facility] Respiratory rate 20 br/min 14-20 Normal (applies to 20 br/min [facility] br/min non-numeric - [place] results) [facility] Oxygen therapy [facility] alth [Minimum Data - [place] Set] [facility] Glucose 84 mg/dL 65-100 84 mg/dL [facility] [Moles/volume] in mg/dL - [facility] Capillary blood [place] by Glucometer [facility] Daily Weight 109 kg 109 kg [facility] Inhaled oxygen 2 L/min 2 L/min [facility] flow rate [facility] Oxygen therapy [place] [facility] alth [Minimum Data - [place] Set] [facility] Oxygen therapy [place] [facility] alth [Minimum Data - [place] Set] [facility] Heart rate 83 bpm 60-100 bpm Normal (applies to 83 bpm [facility] Peripheral artery non-numeric - [place] ar by palpation results) [facility] Heart rate 83 bpm 60-100 bpm Normal (applies to 83 bpm [facility] Peripheral artery non-numeric - [place] ar by palpation results) [facility] Heart rate 84 bpm 60-100 bpm Normal (applies to 84 bpm [facility] Peripheral artery non-numeric - [place] ar by palpation results) [facility] Body height 168 cm 168 cm [facility] Daily Weight 112.4 kg 112.4 kg [facility] Body mass index 39.82 kg/m2 39.82 kg/m2 [facility] (BMI) [Ratio] [facility] [place] Body Weight 59 kg 59 kg [facility] Usual Weight 116 kg 116 kg [facility] Inhaled oxygen 2 L/min 2 L/min [facility] flow rate - [facility] Inhaled oxygen 2 L/min 2 L/min [facility] flow rate - [facility] Daily Weight 112.4 kg 112.4 kg [facility] th - [facility] Blood pressure [facility] measurement site - [facility] Blood pressure [facility] measurement site - [facility] Heart rate 72 bpm 60-100 bpm Normal (applies to 72 bpm [facility] Cardiac apex by non-numeric - [place] by Auscultation results) [facility] Blood pressure [facility] measurement site - [facility] Heart rate 80 bpm 60-100 bpm Normal (applies to 80 bpm [facility] Cardiac apex by non-numeric - [place] by Auscultation results) [facility] Body height 168 cm 168 cm [facility] - [facility] Body weight 111.2 kg 111.2 kg [facility] Measured - [facility] Oxygen Therapy [facility] Activity - [facility] Body mass index 39.13 kg/m2 39.13 kg/m2 [facility] (BMI) [Ratio] - [facility] Body weight 110.45 kg 110.45 kg [facility] Measured - [facility] Body height 168 cm 168 cm [facility] - [facility] Body mass index 39.13 kg/m2 39.13 kg/m2 [facility] (BMI) [Ratio] - [facility] Oxygen Therapy [facility] Activity - [facility] Respiratory rate 17 br/min 14-20 Normal (applies to 17 br/min [facility] br/min non-numeric - [place] results) [facility] Heart rate 84 bpm 60-100 bpm Normal (applies to 84 bpm [facility] non-numeric - [place] results) [facility] Respiratory rate 18 br/min 14-20 Normal (applies to 18 br/min [facility] br/min non-numeric - [place] results) [facility] Diastolic blood 84 mm[Hg] 60-90 mmHg Normal (applies to 84 mm[Hg] [facility] pressure non-numeric - [place] results) [facility] Systolic blood 145 mm[Hg] 90-130 Above high normal 145 mm[Hg] [facility] pressure mmHg - [place] [facility] Oxygen saturation 93 % 94-100 % Below low normal 93 % [facility] in Blood - [place] Postductal by [place] [facility] Ce [facility] Heart rate 84 bpm 60-100 bpm Normal (applies to 84 bpm [facility] non-numeric - [place] results) [facility] Mean blood 105 mm[Hg] 105 mm[Hg] [facility] pressure by - [place] Noninvasive [facility] Oral temperature 98 [degF] 96.4-99.1 Normal (applies to 98 [degF] [facility] DegF non-numeric - [place] results) [facility] Glucose 268 mg/dL 65-100 Above high normal 268 mg/dL [facility] [Moles/volume] in mg/dL - [place] Capillary blood [place] by [facility] ter Glucose 268 mg/dL 65-100 Above high normal 268 mg/dL [facility] [Moles/volume] in mg/dL - [place] Capillary blood [place] by [facility] Medical [facility] ter Glucose 268 mg/dL 65-100 Above high normal 268 mg/dL [facility] [Moles/volume] in mg/dL - [place] Capillary blood [place] by [facility] ter Mean blood 80 mm[Hg] 80 mm[Hg] [facility] pressure by - [place] Noninvasive [facility] Heart rate 62 bpm 60-100 bpm Normal (applies to 62 bpm [facility] non-numeric - [place] results) [facility] Diastolic blood 62 mm[Hg] 60-90 mmHg Normal (applies to 62 mm[Hg] [facility] pressure non-numeric - [place] results) [facility] Systolic blood 117 mm[Hg] 90-130 Normal (applies to 117 mm[Hg] [facility] pressure mmHg non-numeric - [place] results) [facility] Diastolic blood 83 mm[Hg] 60-90 mmHg Normal (applies to 83 mm[Hg] [facility] pressure non-numeric - [place] results) [facility] Systolic blood 151 mm[Hg] 90-130 Above high normal 151 mm[Hg] [facility] pressure mmHg - [facility] Mean blood 106 mm[Hg] 106 mm[Hg] [facility] pressure by - [place] Noninvasive [facility] Oxygen saturation 99 % 94-100 % Normal (applies to 99 % [facility] in Blood non-numeric - [place] Postductal by results) [place] [facility] Oral temperature 97.7 [degF] 96.4-99.1 Normal (applies to 97.7 [degF ] [facility] DegF non-numeric - [place] results) [facility] Oxygen therapy Miky Alli alth [Minimum Data - [place] Set] [facility] Respiratory rate 18 br/min 14-20 Normal (applies to 18 br/min [facility] br/min non-numeric - [place] results) [facility] Oxygen saturation 93 % 94-100 % Below low normal 93 % [facility] in Blood - [place] Postductal by [place] P[facility] Oral temperature 97.9 [degF] 96.4-99.1 Normal (applies to 97.9 [degF ] [facility] DegF non-numeric - [place] results) [facility] Daily Weight 121.8 kg 121.8 kg [facility] Oxygen therapy N[place]ia Carson alth [Minimum Data - [place] Set] [facility] Oxygen therapy [place] Alli alth [Minimum Data - [place] Set] [facility] Daily Weight 119.5 kg 119.5 kg [facility] Blood pressure Nukia Carson alth measurement site - [facility] Heart rate 89 bpm 60-100 bpm Normal (applies to 89 bpm [facility] Health Peripheral artery non-numeric - [place] ar by palpation results) [facility] Blood pressure [facility] Alli alth measurement site - [facility] FIO2 21 % 21 % [facility] Daily Weight 116.8 kg 116.8 kg [facility] Blood pressure Nukia Carson alth measurement site - [facility] Inhaled oxygen 2 L/min 2 L/min [facility] al[facility] flow rate - [facility] Inhaled oxygen 2 L/min 2 L/min [place] [facility] flow rate - [facility] Inhaled oxygen 2 L/min 2 L/min [facility] flow rate - [facility] Body mass index 39.13 kg/m2 39.13 kg/m2 [facility] (BMI) [Ratio] - [facility] Body height 168 cm 168 cm [facility] h - [facility] Body weight 110.45 kg 110.45 kg [facility] h Measured - [facility] Body mass index 39.13 kg/m2 39.13 kg/m2 [facility] (BMI) [Ratio] - [facility] Oxygen saturation 94 % 94-100 % Normal (applies to 94 % [facility] in Blood non-numeric - [place] Postductal by results) [place] [facility] Ce [facility] Respiratory rate 18 br/min 14-20 Normal (applies to 18 br/min [facility] br/min non-numeric - [place] results) [facility] Oxygen therapy Nukia Carson alth [Minimum Data - [place] Set] [facility] Heart rate 77 bpm 60-100 bpm Normal (applies to 77 bpm [facility] [employer] non-numeric - [place] results) [facility] Respiratory rate 12 br/min 14-20 Below low normal 12 br/min [facility] Health br/min - [facility] Heart rate 75 bpm 60-100 bpm Normal (applies to 75 bpm [facility] [place] [employer] non-numeric - [place] results) [facility] Oxygen saturation 95 % 94-100 % Normal (applies to 95 % [facility] in Blood non-numeric - [place] Postductal by results) [place] [facility] Oral temperature 97.5 [degF] 96.4-99.1 Normal (applies to 97.5 [degF ] [facility] DegF non-numeric - [place] results) [facility] Oxygen therapy Nukia Carson alth [Minimum Data - [place] Set] [facility] Blood pressure [facility] measurement site - [place] [facility] Diastolic blood 63 mm[Hg] 60-90 mmHg Normal (applies to 63 mm[Hg] [facility] pressure non-numeric - [place] results) [facility] Systolic blood 123 mm[Hg] 90-130 Normal (applies to 123 mm[Hg] [facility] pressure mmHg non-numeric - [place] results) [facility] Mean blood 83 mm[Hg] 83 mm[Hg] [facility] pressure by - [place] Noninvasive [facility] Oxygen saturation 95 % 94-100 % Normal (applies to 95 % [facility] in Blood non-numeric - [place] Postductal by results) [place] Pulse [facility] Medical nter Heart rate 70 bpm 60-100 bpm Normal (applies to 70 bpm [facility] non-numeric - [place] results) [facility] Respiratory rate 15 br/min 14-20 Normal (applies to 15 br/min [facility] br/min non-numeric - [place] results) [facility] Oxygen therapy Nukia Carson alth [Minimum Data - [place] Set] [facility] Blood pressure [facility] alth measurement site - [place] [facility] Diastolic blood 60 mm[Hg] 60-90 mmHg Normal (applies to 60 mm[Hg] [facility] pressure non-numeric - [place] results) [facility] Systolic blood 128 mm[Hg] 90-130 Normal (applies to 128 mm[Hg] [facility] pressure mmHg non-numeric - [place] results) [facility] Mean blood 83 mm[Hg] 83 mm[Hg] [facility] pressure by - [place] Noninvasive [facility] Diastolic blood 61 mm[Hg] 60-90 mmHg Normal (applies to 61 mm[Hg] [facility] pressure non-numeric - [place] results) [facility] Systolic blood 128 mm[Hg] 90-130 Normal (applies to 128 mm[Hg] [facility] pressure mmHg non-numeric - [place] results) [facility] Blood pressure Nuvanstacie alth measurement site - [place] [facility] Mean blood 83 mm[Hg] 83 mm[Hg] [facility] pressure by - [place] Noninvasive [facility] Oral temperature 97.4 [degF] 96.4-99.1 Normal (applies to 97.4 [degF ] [facility] DegF non-numeric - [place] results) [facility] Inhaled oxygen 3 L/min 3 L/min [facility] alth flow rate - [facility] Inhaled oxygen 3 L/min 3 L/min [facility]th flow rate - [facility] Inhaled oxygen 10 L/min 10 L/min [facility] alth flow rate - [facility] FIO2 100 % 100 % [facility] Body temperature 96.3 [degF] 97.9-100.6 Below low normal 96.3 [degF] [facility] - Temporal artery DegF - [facility] FIO2 100 % 100 % [facility] Oral temperature 97.6 [degF] 96.4-99.1 Normal (applies to 97.6 [degF ] [facility] DegF non-numeric - [place] results) [facility] Heart rate 78 bpm 60-100 bpm Normal (applies to 78 bpm Health system Peripheral artery non-numeric - [place] ar by palpation results) [facility] Body height 167.6 cm 167.6 cm [facility] Body weight 112.59 kg 112.59 kg [facility] Measured [facility] Body mass index 40.08 kg/m2 40.08 kg/m2 [facility] (BMI) [Ratio] [facility] Oxygen saturation 97 % 94-100 % Normal (applies to 97 % [facility] in Blood non-numeric - [place] Postductal by results) [place] Pulse oxim[facility] Medical nter Respiratory rate 18 br/min 14-20 Normal (applies to 18 br/min [facility] br/min non-numeric - [place] results) [facility] Diastolic blood 69 mm[Hg] 60-90 mmHg Normal (applies to 69 mm[Hg] [facility] pressure non-numeric - [place] results) [facility] Systolic blood 158 mm[Hg] 90-130 Above high normal 158 mm[Hg] [facility] pressure mmHg - [facility] Heart rate 76 bpm 60-100 bpm Normal (applies to 76 bpm [facility] non-numeric - [place] results) [facility] Oral temperature 97.7 [degF] 96.4-99.1 Normal (applies to 97.7 [degF ] [facility] DegF non-numeric - [place] results) [facility] Oxygen therapy [facility] [Minimum Data - [place] Set] [facility] Oral temperature 98.1 [degF] 96.4-99.1 Normal (applies to 98.1 [degF ] [facility] DegF non-numeric - [place] results) [facility] Oxygen saturation 93 % 94-100 % Below low normal 93 % [facility] in Blood - [place] Postductal by [place] Pulse oxim[facility] Medical nter Heart rate 77 bpm 60-100 bpm Normal (applies to 77 bpm [facility] Peripheral artery non-numeric - [place] ar by palpation results) [facility] Diastolic blood 77 mm[Hg] 60-90 mmHg Normal (applies to 77 mm[Hg] [facility] pressure non-numeric - [place] results) [facility] Systolic blood 138 mm[Hg] 90-130 Above high normal 138 mm[Hg] [facility] pressure mmHg - [place] [facility] Diastolic blood 80 mm[Hg] 60-90 mmHg Normal (applies to 80 mm[Hg] [facility] pressure non-numeric - [place] results) [facility] Systolic blood 156 mm[Hg] 90-130 Above high normal 156 mm[Hg] [facility] pressure mmHg - [place] [facility] Heart rate 74 bpm 60-100 bpm Normal (applies to 74 bpm [facility] Peripheral artery non-numeric - [place] ar by palpation results) [facility] Oxygen saturation 94 % 94-100 % Normal (applies to 94 % [facility] in Blood non-numeric - [place] Postductal by results) [place] Pulse oxim[facility] Medical nter Heart rate 77 bpm 60-100 bpm Normal (applies to 77 bpm [facility] Peripheral artery non-numeric - [place] ar by palpation results) [facility] Oral temperature 98.4 [degF] 96.4-99.1 Normal (applies to 98.4 [degF ] [employer] [facility] DegF non-numeric - [place] results) [facility] Blood pressure [place] [facility] alth measurement site - [facility] Blood pressure [facility] measurement site - [facility] Heart rate 87 bpm 60-100 bpm Normal (applies to 87 bpm [facility] [place] [address] [place] non-numeric - [place] results) [facility] Body height 168 cm 168 cm [facility] h - [facility] Body mass index 39.78 kg/m2 39.78 kg/m2 [facility] (BMI) [Ratio] - [facility] Body mass index 39.78 kg/m2 39.78 kg/m2 [facility] (BMI) [Ratio] - [facility] Body weight 112.27 kg 112.27 kg [facility] Measured - [facility] Oxygen [facility] [Minimum Data - [place] Set] [facility] Respiratory rate 19 br/min 14-20 Normal (applies to 19 br/min [facility] br/min non-numeric - [place] results) [facility] Patient Treatment Plan of Care Planned Activity Planned Date Details Description Data Source (s) No data available for [employer] - [facility] section [facility] No data available for [employer] - this section [facility] No data available for [employer] - this section [facility] Dilaudid ( 02/05/2020 11:21:06 [facility] [employer] 0.9% NaCl IV 02/05/2020 10:21:10 [facility] [employer] Dilaudid ( 02/05/2020 10:21:10 [facility] [employer] Methotrexate 2.5 MG Oral 02/05/2020 04:32:00 [employer] - Tablet PM EDT [facility] Albuterol 0.83 MG/ML 04/17/2019 02:40:00 [employer] - Inhalant Solution PM EDT [facility] Ventolin HFA 90 mcg/inh 04/17/2019 02:37:00 [facility] - inhalation aerosol PM EDT [facility] Ventolin HFA 90 mcg/inh 04/07/2019 12:40:00 [facility] - inhalation aerosol PM EDT [facility] Albuterol 0.83 MG/ML 04/07/2019 12:40:00 [facility] - Inhalant Solution PM EDT [facility] Augmentin 875 mg-125 mg 03/28/2019 01:47:00 [facility] - oral tablet PM EDT [facility] 3 ML liraglutide 6 MG/ML 03/25/2019 01:20:00 [facility] - Pen Injector PM EDT [facility] albuterol Inhaler 03/25/2019 01:19:00 [facility] - PM EDT [facility] Furosemide 40 MG Oral 10/22/2018 10:48:00 [facility] - Tablet AM EDT [facility] Levofloxacin 750 MG Oral 10/22/2018 10:48:00 [facility] - Tablet AM EDT [facility] albuterol [employer] free 90 10/22/2018 10:48:00 [facility] - mcg/inh inhalation AM EDT [facility] clonazepam 10/19/2018 04:10:00 [facility] - PM EDT [facility] simvastatin 10/19/2018 04:09:00 [facility] - PM EDT [facility] Probiotic Formula 10/19/2018 04:08:00 [facility] - PM EDT [facility] carvedilol 10/19/2018 04:06:00 [facility] - PM EDT [facility] Simvastatin 10 MG Oral 10/09/2018 10:48:00 [facility] - Tablet AM EDT [facility] Auryxia 210 mg oral 10/09/2018 10:46:00 [facility] - tablet AM EDT [facility] predniSONE 10 mg oral 10/09/2018 10:43:00 [facility] - tablet AM EDT [facility] azithromycin 250 mg oral 10/09/2018 10:43:00 [facility] - tablet AM EDT [facility] gabapentin 03/27/2018 02:26:00 [facility] - PM EDT [facility] DuoNeb 10/11/2017 02:45:00 [facility] - PM EDT [facility] Bio-K+ 10/11/2017 02:45:00 [facility] - PM EDT [facility] MiraLax 10/11/2017 02:45:00 [facility] - PM EDT [facility] carvedilol 25 MG Oral 10/04/2017 09:56:00 [facility] - Tablet AM EDT [facility] mupirocin 2% topical 10/04/2017 09:56:00 [facility] - cream AM EDT [facility] calcium acetate 667 MG 10/04/2017 09:56:00 [facility] - Oral Capsule AM EDT [facility] calcium acetate 667 MG 10/04/2017 09:56:00 [facility] - Oral Capsule AM EDT [facility] Vitamin B12 09/02/2013 04:48:00 [facility] - PM EDT [facility]
[2020-03-14] MEDS ORDERED: SODIUM CHLORIDE 2,585 ML IV ONE (16:31)
[2020-03-14] MEDS ORDERED: ACETAMINOPHEN 1000 MG/100 ML VIAL (NON FORMULARY) IVPB ONE (16:48)
[2020-03-14] MEDS ORDERED: ACETAMINOPHEN INJECTION 100 ML IVPB ONE (16:53)
[2020-03-14 17:24] LABS: BASO % 1.4 % (0-2.0); HEMATOCRIT 26.7 % (32.4-45.2); HEMOGLOBIN 8.8 GM/dL (10.7-15.3); LYMPH % 16.7 % (8-40); MCH 36.8 pg (25.7-33.7); MCHC 33.1 g/dl (32.0-36.0); MEAN CELL VOLUME 111.1 fl (80-96); MEAN PLT VOLUME 8.4 fl (7.5-11.1); MONO % 16.4 % (3.8-10.2); NEUT % 60.5 % (42.8-82.8); PLATELET COUNT 268 K/MM3 (134-434); RDW 19.3 % (11.6-15.6); WHITE BLOOD COUNT 9.8 K/mm3 (4.0-10.0)
[2020-03-14 17:36] LABS: INR 0.93 (0.83-1.09)
[2020-03-14 17:38] LABS: ACTIVATED PTT 27.6 SECONDS (25.2-36.5)
[2020-03-14 17:46] LABS: ALBUMIN 1.9 g/dl (3.4-5.0); ALK PHOS 141 U/L (45-117); ANION GAP 6 MMOL/L (8-16); BILIRUBIN,TOTAL 0.3 mg/dL (0.2-1); BLOOD UREA NITROGEN 38.8 mg/dL (7-18); CALCIUM 9.8 mg/dL (8.5-10.1); CHLORIDE 96 mmol/L (98-107); CO2 32 mmol/L (21-32); CREATININE 6.2 mg/dL (0.55-1.3); GLUCOSE,RANDOM 104 mg/dL (74-106); POTASSIUM 4.3 mmol/L (3.5-5.1); SGOT/AST 27 U/L (15-37); SGPT/ALT 26 U/L (13-61); SODIUM 135 mmol/L (136-145)
--- NOTE | 2020-03-14 18:10 | PDOC ---
Documentation entered by Patrizia Bautista SCRIBE, acting as scribe for Justin Stenr MD. Justin Stern MD: This documentation has been prepared by the scribeMichele Ana, SCRIBE, under my direction and personally reviewed by me in its entirety. I confirm that the documentation accurately reflects all work, treatment, procedures, and medical decision making performed by me. Attending Attestation - Resident Resident Name: Hussein Camacho - ED Attending Attestation I have performed the following: I have examined & evaluated the patient, The case was reviewed & discussed with the resident, I agree w/resident's findings & plan, Exceptions are as noted - HPI HPI: 03/14/20 17:13 Patient is a 54 year old female with a significant past medical history of lymphoma, ESRD (on dialysis, T/T/S), and pemphigus vulgaris, who [facility], [facility], with lower blood pressure. Patient denies: chills, night sweets, dizziness, confusion, any vision changes, nausea, vomiting, palpitations, blood in stool, blood in urine, or any other related symptoms. Allergies: midodrine, penicillamine, piperacillin, and tazobactam - Physicial Exam PE: 03/14/20 18:00 EXAMINATION CONSTITUTIONAL: alert, awake, nad HEAD: Normocephalic; atraumatic EYES: PERRL; EOM intact; conj-pale ENMT: External appears normal; NECK: Supple; non-tender; no cervical lymphadenopathy CARD: Normal S1, S2; no murmurs, rubs, or gallops RESP: Normal chest excursion with respiration; breath sounds clear and equal bilaterally; no wheezes, rhonchi, or rales ABD: Soft, non-distended; non-tender; no palpable organomegaly, no palpable hernias EXT: Normal ROM in all four extremities; + minimal LEs edema; non-tender to palpation; distal pulses intact SKIN: Warm, dry, no active lessions NEURO: No focal neurological deficiencies. - Medical Decision Making 03/14/20 18:08 Patient is a 54-year-old female with history of end-stage renal disease on hemodialysis, pemphigus vulgaris on prednisone presents with [facility] the [facility]. In the ED, patient is noted to be transiently hypotensive without changes in mentation. Patient is afebrile. Differential diagnosis includes adrenal suppression versus sepsis versus hemorrhage. Will obtain CBC/CMP/lactic acid/blood cultures/UA/urine culture. Will obtain chest x-ray to rule out pneumonia. Will obtain random cortisol level. Will administer judicious IV fluids, IV Solu-Cortef, Vancomycin and gentamicin iv for suspected sepsis. Will admit. Discharge - Discharge Information Problems reviewed: Yes Clinical Impression/Diagnosis: ESRD (end stage renal disease) on dialysis UTI (urinary tract infection) Qualifiers: Urinary tract infection type: acute cystitis Hematuria presence: with hematuria Qualified Code(s): N30.01 - Acute cystitis with hematuria Hypotension Qualifiers: Hypotension type: unspecified hypotension type Qualified Code(s): I95.9 - Hypotension, unspecified - Follow up/Referral - Patient Discharge Instructions - Post Discharge Activity
[2020-03-14] MEDS ORDERED: LIDOCAINE HCL 2% JELLY (5 ML/TUBE) ONE (18:13)
[2020-03-14] MEDS ORDERED: LIDOCAINE HCL 2% JELLY (5 ML/TUBE) TP ONE (18:15)
[2020-03-14] MEDS ORDERED: LIDOCAINE HCL 2% JELLY (30 ML/TUBE) TP ONE (18:18)
[2020-03-14] MEDS ORDERED: VANCOMYCIN HCL 1,250 MG in DEXTROSE 5%-WATER - 250 ML IVPB ONE (18:29)
[2020-03-14] MEDS ORDERED: HYDROCORTISONE SOD SUCCINATE 100 MG/2 ML VIAL IVPUSH ONE (18:30)
[2020-03-14] MEDS ORDERED: GENTAMICIN INJECTION 120 MG in DEXTROSE 5%-WATER - 250 ML IVPB SCH (18:30)
[2020-03-14 18:58] LABS: PH,URINE 5.5 (5.0-8.0); URINE APPEARANCE Turbid; URINE BILIRUBIN Negative (NEGATIVE); URINE COLOR Yellow; URINE GLUCOSE (UA) Negative (NEGATIVE); URINE KETONE 1+ (NEGATIVE); URINE LEUK ESTERASE 3+ (NEGATIVE); URINE NITRITE Negative (NEGATIVE); URINE PROTEIN 3+ (NEGATIVE); URINE UROBILINOGEN 0.2 mg/dL (0.2-1.0)
[2020-03-14] MEDS ORDERED: HYDROCORTISONE SOD SUCCINATE 100 MG/2 ML VIAL ONE (19:04)
--- NOTE | 2020-03-14 19:08 | PDOC ---
*Physical Exam - Vital Signs Last Vital Signs Temp Pulse Resp BP Pulse Ox 98.2 F 93 H 20 101/66 99 03/14/20 15:42 03/14/20 15:42 03/14/20 15:42 03/14/20 15:42 03/14/20 15:42 ED Treatment Course - LABORATORY CBC & Chemistry Diagram: 03/14/20 16:30 03/14/20 16:30 - ADDITIONAL ORDERS Additional order review: Laboratory Results 03/14/20 03/14/20 03/14/20 16:30 16:30 16:30 PT with INR 11.00 INR 0.93 PTT (Actin FS) 27.6 Sodium 135 L Potassium 4.3 Chloride 96 L Carbon Dioxide 32 Anion Gap 6 L BUN 38.8 H Creatinine 6.2 H Est GFR (CKD-EPI)AfAm 8.03 Est GFR (CKD-EPI)NonAf 6.93 Random Glucose 104 Lactic Acid 1.3 Calcium 9.8 Total Bilirubin 0.3 AST 27 ALT 26 Alkaline Phosphatase 141 H Troponin I < 0.02 Total Protein 6.0 L Albumin 1.9 L Urine Color Urine Appearance Urine pH Ur Specific [place] Urine Protein Urine Glucose (UA) Urine Ketones Urine Blood Urine Nitrite Urine Bilirubin Urine Urobilinogen Ur Leukocyte Esterase 03/14/20 15:30 PT with INR INR PTT (Actin FS) Sodium Potassium Chloride Carbon Dioxide Anion Gap BUN Creatinine Est GFR (CKD-EPI)AfAm Est GFR (CKD-EPI)NonAf Random Glucose Lactic Acid Calcium Total Bilirubin AST ALT Alkaline Phosphatase Troponin I Total Protein Albumin Urine Color Yellow Urine Appearance Turbid Urine pH 5.5 Ur Specific [place] >= 1.030 Urine Protein 3+ H Urine Glucose (UA) Negative Urine Ketones 1+ H Urine Blood 3+ H Urine Nitrite Negative Urine Bilirubin Negative Urine Urobilinogen 0.2 Ur Leukocyte Esterase 3+ H 03/14/20 16:30 RBC 2.40 L MCV 111.1 H MCHC 33.1 RDW 19.3 H MPV 8.4 Neutrophils % 60.5 Lymphocytes % 16.7 Monocytes % 16.4 H Eosinophils % 5.0 H Basophils % 1.4 - Medications Given in the ED: ED Medications Discontinued Medications Generic Name Dose Route Start Last Admin Trade Name Freq PRN Reason Stop Dose Admin Acetaminophen 1,000 mg 03/14/20 16:48 03/14/20 16:53 Ofirmev Injection - IVPB 03/14/20 16:49 1,000 mg ONCE ONE Administration Sodium Chloride 2,585 mls @ 1,292.5 mls/hr 03/14/20 16:31 03/14/20 16:44 Normal Saline - 30 ml/kg infuse over 2 hr (2585 ml) 03/14/20 18:30 1,292.5 mls/hr IV Administration ONCE ONE Lidocaine HCl 5 applic 03/14/20 18:15 03/14/20 18:26 Xylocaine 2% Jelly TP 03/14/20 18:16 Not Given ONCE ONE Lidocaine HCl 0 applic 03/14/20 18:18 03/14/20 18:21 Xylocaine 2% Jelly TP 03/14/20 18:19 1 applic ONCE ONE Administration Medical Decision Making - Medical Decision Making 03/14/20 19:[address] Camacho. Patient from [facility], has reportedly expressed that she would like to be sent to another facility. Reported hypotension, subjective fevers. Also complains of hemorrhoid pain, given topical lidocaine. UA now back, 3+ leuks and 3+ blood. Getting vanc and gent (piptazo allergy). Will admit to tele for possible UTI sepsis. Discharge - Discharge Information Problems reviewed: Yes Clinical Impression/Diagnosis: ESRD (end stage renal disease) on dialysis UTI (urinary tract infection) Qualifiers: Urinary tract infection type: acute cystitis Hematuria presence: with hematuria Qualified Code(s): N30.01 - Acute cystitis with hematuria Hypotension Qualifiers: Hypotension type: unspecified hypotension type Qualified Code(s): I95.9 - Hypotension, unspecified - Follow up/Referral - Patient Discharge Instructions - Post Discharge Activity
[2020-03-14 19:14] LABS: URINE RBC 0-10 /uL (0-23.9)
[2020-03-14 19:15] LABS: URINE BACTERIA MANY /uL (0-1359); URINE WBC >100 /uL (0-25.8)
[2020-03-14] MEDS ORDERED: GENTAMICIN INJECTION 120 MG in DEXTROSE 5%-WATER - 100 ML IVPB ONE (19:30)
[2020-03-14 19:42] LABS: ANISOCYTOSIS 1+; MACROCYTOSIS 0; OVALOCYTE 1+; PLATELET ESTIMATE NORMAL; TEAR DROP CELLS 1+
--- OUTSIDE RECORDS SUMMARY | 2020-03-14 20:19 | XMS ---
:1965 [facility] Organization [facility] Care Team Providers Name Role Phone Jessica BENAVIDES, Physician Bonifacio Valdovinos Unavailable Unavailable Luis ERICKSON, Physician Katherine Sheikh Unavailable Unavailkierra Booker Unavailable Unavailable Mayen Unavailable [email or web address] Mayen Unavailable [email or web address] Mayen Unavailable [email or web address] Mayen Unavailable [email or web address] Mayen Unavailable [email or web address] Mayen [facility]available [email or web address] Mayen Unavailable [email or web address] Mayen Unavailable [email or web address] Samuel Unavailable Unavailable Uche Lundy MD Unavailable Unavailable Stefano Garcia Unavailable Unavailable Jose [...] P MD Unavailable Unavailable Belinskaya Unavailable Unavailable DHALAN MD Unavailable Unavailable DHALAN MD Unavailable Unavailable DHUPKILO MD Unavailable Unavailable DHUPKILO MD Unavailable Unavailable DHUPKILO, MD Unavailable Unavailable DHALAN, MD Unavailable Unavailable DHALAN MD Unavailable Unavailable HALEY MD Unavailable Unavailable MD HALEY Unavailable Unavailable MD HALEY Unavailable Unavailable MD HALEY Unavailable Unavailable MD HALEY Unavailable Unavailable MD HALEY Unavailable Unavailable HALEY MD Unavailable Unavailable DHALAN MD Unavailable Unavailable DHALAN, MD Unavailable Unavailable HALEY MD Unavailable Unavailable HALEY MD Unavailable Unavailable DHALAN MD Unavailable Unavailable Amadeo Soria MD Unavailable Unavailable Tete ERICKSON, Physician Unavailable Unavailable Tylor BENAVIDES, Physician V Unavailable Unavailable Purvis Unavailable Unavailable EDGAR, DAMIEN-IN Unavailable Unavailable ER Unavailable Unavailable Nadeem Verma MD, ABrian Unavailable Unavailable MD Herman Unavailable Unavailable MD Herman Unavailable Unavailable Mesfin Deluna MD Unavailable Unavailable Tristin BENAVIDES, Physician R. Unavailable Unavailable Chidi EPPS, Physician M Unavailable Unavailable Lawrence Sandoval, Physician Y Unavailable Unavailable Arsalan BENAVIDES, M Unavailable Unavailable Ham Unavailable Unavailable EMERGENCY SERVICE, X Unavailable Unavailable TRISHA PAVON Unavailable Unavailable Ham BENAVIDES PBrian Unavailable Unavailable Jez DO ABrian Unavailable Unavailable Ritter, D MD Unavailable Unavailable [...] Article 27-F of the [facility] Public Health law. If you continue you may haveaccess to information: Regarding HIV / AIDS; Provided by facilities licensed or operated by the [facility] Office of Mental Health; or Provided by the [facility] Office for People With Developmental Disabilities. If such information is present, then the following [facility] mandated warning applies: This information has [...] law may result in a fine or retirement sentence or both. A general authorization for the release of medical or other information is NOT sufficient authorization for further disclosure. Allergies and Adverse Reactions Type Description Substance Reaction Status Data Source(s ) Drug allergy Zosyn in dextrose Zosyn in dextrose SIGMACARE (iso-osm) (iso-osm) ([facility]) Drug allergy penicillamine penicillamine SIGMAC ARE ([facility]) Drug allergy midodrine midodrine SIGMACARE ([facility]) Drug allergy piperacillin piperacillin Anaphylaxis [facility] Drug allergy tazobactam tazobactam Anaphylaxis [facility] Drug allergy midodrine midodrine Rash [email or web address] Drug allergy Penicillins Penicillins Unknown [facility] Drug allergy No Known Drug No Known Drug [facility] miesha Allergies Allergies [facility] Drug allergy No Known Allergies No Known Allergies [facility] Drug allergy Zosyn Zosyn [facility] Drug allergy penicillins penicillins anaphylaxis to [facility] zosyn [facility] No Known Allergies No Known Allergies [facility] Drug allergy midodrine mid[facility]rine sunburned [facility] feeling from [facility] head to toe [facility] Drug allergy Zosyn Zosyn [place] [facility] - [facility] Drug allergy penicillins penicillins [place] [facility] alth - [facility] No Known Allergies No Known Allergies [facility] Primary Care Drug allergy midodrine midodrine rash [facility]ed [facility] feeling from - [facility] Primary head to toe Care 1 MIDODRINE MIDODRINE NEXTGEN ([facility]) Food allergy No Known Food No Known Food [facility] miesha Allergies Allergies [facility] Encounters Encounter Providers Location Date Indications Data Source(s ) Inpatient Attender: 6 WEST-5 EAST 02/28/2020 SIGMACARE [facility] Patient admitted. Inpatient Attender: LIBRADO, 02/05/2020 PEMPHIGUS [facility] OLIVERAttender: ROBERTO, 11:58:00 PM EDT - [facility] ERICAttender: ZELALEM, 02/28/2020 Corpor ation RONALDAttender: EDGAR, 03:00:00 PM EDT DAMIEN-INAdmitter: DAMIEN HERNÁNDEZ-INReferrer: BEVERLY HERNÁNDEZIN PEMPHIGUS VULGARIS Patient admitted. Emergency Attender: EDGAR 02/05/2020 08:48:00 TRANSFER W [facility] [address] DAMIEN-INAttender: EMERGENCY PM EDT Health Care SERVICE, XAdmitter: [facility] EMERGENCY SERVICE, X TRANSFER Emergency Attender: Shayy Price 02/05/2020 12:34:51 PM [facility] MDAttender: EDT - 02/05/2020 Juliette boateng Brothmariela ERAdmitter: Shayy Price 07:09:00 PM T [facility] Patient discharged. Outpatient Attender: Gaby 12/19/2019 09:30:00 AM [facility] Jose Martin EDT - 12/19/2019 11:59:00 Primary Care PM EDT Patient discharged. Outpatient Attender: Eugene 08/22/2019 02:00:00 [facility] SenisiReferrer: Eugene [facility] Outpatient Attender: Vahe Tejada 08/15/2019 02:47:00 [facility] EST [facility] - [facility]) Outpatient Attender: Eugene Louis 08/09/2019 11:35:00 AM [facility]) Outpatient Attender: Eugene 08/08/2019 11:00:00 AM MATEO ([facility] SenisiReferrer: Eugene [facility]) S Attender: Physician Valdovinos 06/03/2019 11:27:00 AM [facility] MDAdmitter: [facility] Juliette ar Brothers Physician Bonifacio Lopez MD Medical Center Admission cancelled. Disregard status an d admitted date. Outpatient Attender: Physician Bonifacio 06/03/2019 10:03:00 AM [facility] Bonifacio Lopez MDAdmitter: EST - 06/03/2019 [place] Brothers Physician Bonifacio Lopez 11:59:00 PM [facility] MD Patient discharged. Outpatient Attender: Physician Bonifacio 05/06/2019 10:38:47 AM [facility] Bonifacio Jessica MDAdmitter: EST - 05/06/2019 [place] Brothers Physician Bonifacio Lopez 11:59:00 PM [facility] MD Patient discharged. Inpatient Attender: Physician Kamron Epstein 04/17/2019 12 :17:00 [facility] MBBSAttender: ERAttender: Santos PM EDT - 1 06/27/2018 Nathalia Charitymariela Deluna MDAdmitter: Physician 01:15:00 PM [facility] Tete MBBSConsultant: Darien Villanueva MDConsultant: YVONNE RAJPUT MDConsultant: GITA DE LEON MDConsultant: JABARI REIS MDConsultant: Gustavo Puentes MDConsultant: Carol Ann Sutton MDConsultant: Haile Santos MDConsultant: Jackie AbreueConsultant: Vipul BerenzonConsultant: Vipul Berenzon MDConsultant: Halima LeeConsultant: Physician Laith Duran MDConsultant: Physician Cuong Crow MDConsultant: Nato GuevaraConsultant: Physician Luis Gayle MDConsultant: Physician Bonifacio Lopez MD Patient discharged. Outpatient Attender: Physician Bonifacio 04/16/2019 09:29:58 AM [facility] Bonifacio Jessica MDAdmitter: EDT - 04/16/2019 [place] Brothers Physician Bonifacio Lopez 11:59:00 PM [facility] MD Patient discharged. Inpatient Attender: Physician Nghia John 04/04/2019 02:2 5:00 [facility] MDAttender: Ilona PM EDT - 04/07/2019 Nathalia PhamAttender: Carleen 04:13:00 PM EDT [facility] MDAttender: ERAdmitter: Physician Nghia John MDConsultant: Wilton Shore MDConsultant: JABARI REIS MDConsultant: Physician Bonifacio Lopez MDConsultant: Physician Oziel Dutton MDConsultant: Physician Nghia John MDConsultant: Physician Luis Gayle MDConsultant: Physician Manuelito Murillo DOConsultant: Stephon Story DOConsultant: Nato BhoraConsultant: Halima Jimenez-CutilloConsultant: Danie Pham Patient discharged. Inpatient Attender: Physician Katherine 03/25/2019 09:22:00 A M [facility] Luis MBBSAttender: Maria Guadalupe EDT - 03/28/2019 Nathalia Quinn KnowlesAttender: 04:00:00 PM EDT [facility] ERAdmitter: Physician Katherine FRIENDBSConsultant: YVONNE RAJPUT MDConsultant: Wilton Shore MDConsultant: JABARI REIS MDConsultant: Physician Bonifacio Lopez MDConsultant: Shilo Arriaza MDConsultant: Physician Gaby Philippe MDConsultant: Physician Luis Gayle MD Patient discharged. Outpatient Attender: Wilton Shore 03/21/2019 08:49:52 AM [facility] MDAdmitter: Wilton Shore EDT - 03/21/2019 Nathalia Quinn MD 11:59:00 PM EDT Medical enter Patient discharged. Outpatient Attender: Physician 02/11/2019 10:42:00 AM [facility] [address] EDT - 02/28/2019 Juliette Quinn MDAdmitter: Physician 11:59:00 PM EDT [facility] [address] MD Patient discharged. Outpatient Attender: Nadirdceagle 01/24/2019 01:19:00 PM [facility] ([facility] EDT Medical - [facility] ) Outpatient Attender: Michaelle 01/18/2019 02:30:00 PM [facility] ([facility] SamuelReferrer: EDT Medical - [facility]) Outpatient Attender: Viviana 01/18/2019 12:00:00 AM [facility] ([facility] JulietasioReferrer: EDT Medical - [facility]) Inpatient Attender: Physician 10/19/2018 12:08:00 PM [facility] Suellen Bravo EDT - 10/22/2018 Paul[place] kilo Quinn M.D.Attender: 03:00:00 PM EDT [facility] Physician Katherine FRIENDBSAttender: Manuelito Soria MDAttender: ERAdmitter: Physician Katherine ERICKSONConsultant: Gustavo Puentes MDConsultant: Physician Cuong Crow MDConsultant: Jackie AbreueConsultant: Rivera CaspermConsultant: Physician Rivera Ashley MDConsultant: Physician Ricky Snider MD Outpatient Attender: Physician 10/09/2018 09:41:25 AM [facility] [address] EDT - 10/10/2018 Juliette ar Kai MDAdmitter: Physician 09:32:00 [address] [facility] [facility] MDConsultant: Yifan Silver Jr., MDConsultant: Yifan Silver Emergency Attender: Manuelito 10/08/2018 10:20:00 AM [facility] Yang Mendoza: EDT - 10/08/2018 Nathalia Charitymariela ERAdmitter: Manuelito 08:22:00 PM EDT [facility] Yang MDConsultant: Physician Jadon Street MD Outpatient Attender: Physician TENISHA 07/26/2018 03:53:00 PM [facility] Cuong Crow EST - 07/26/2018 Bobsa r Kai MDAdmitter: Physician 11:59:59 PM [facility] Cuong Crow MD Outpatient Attender: Halima 03/06/2018 12:26:54 PM [facility] - 03/06/2018 Nathalia Charitymariela er: Halima 11:59:59 PM EDT [facility] Out[facility] Attender: Eugene 06/03/2015 03:00:00 PM [facility] ([facility] SenisiReferrer: EST Medical - [facility]) Immunizations Vaccine Date Status Description Data Source(s) Pneumococcal conjugate 03/28/2019 completed pneumococcal [facility] - PCV 13 04:00:00 PM 13-valent conjugate [place] [facility] EDT vaccine [facility] influenza virus 05/12/2014 completed influenza virus [facility] - vaccine, inactivated 12:00:00 AM vaccine, inactivated 1 [facility] Result Comment: Unknown Unit of Measure: 0.5 influenza virus 03/12/2013 12:00:00 completed influenza virus [facility] - vaccine, inactivated AM EDT vaccine, inactivated [facility] tetanus/diphth/pertu 01/29/2013 12:00:00 completed tetanus/dipht h/pertu [facility] - ss (Tdap) adult/adol AM EDT ss (Tdap) [facility] adult/adol4 Medical [place] Result Comment: Unknown Unit of Measure: cc haemophilus b 01/29/2013 12:00:00 completed haemophilus b [facility] - conjugate (PRP-T) AM EDT conjugate (PRP-T) [facility] vaccine vaccine3 [facility] Result Comment: Unknown Unit of Measure: cc tetanus/diphth/pertuss 12/04/2012 completed tetanus/diphth/per tuss [place] (Tdap) adult/adol 12:00:00 AM (Tdap) adult/adol5 Heal th - EDT [facility] Result Comment: Unknown Unit of Measure: pneumococcal 05/08/2012 completed pneumococcal [facility] 23-polyvalent vaccine 12:00:00 AM EST 23-polyvalent va ccine - [facility] influenza virus 05/08/2012 completed influenza virus [facility] vaccine, inactivated 12:00:00 AM EST vaccine, inactiva ted2 - [facility] Result Comment: Unknown Unit of Measure: Medications Medication Brand Start Product Dose Route Administrative Pharmacy [facility] Indications Reaction Description Data Name Date Form [...] 3350) 17 3350 00 AM Care gram/dose 11047 EDT Center) oral powder MG Powder for Oral Soluti on [[place] ax] melatonin 5 Melato melato trisha 5 SIGMACARE mg capsule trisha [...] 00 PM Care Tablet EDT Center) Preparation [id number] Prepar ation SIGMACARE H 20009 2019 ed H 0.25 %-14 (Regenc y (phenyleph- 07:29: %-74.9 % Ex tended min 17 AM ointment Care oil-petrola EDT Center) waqar) 0.25 %-14 %-74.9 % ointment Mepilex 322842 Mepilex 4" X SIGMACARE (foam 90454 2020 ed 4" bandage (Regenc y bandage) 4" 03:24: Extend ed X 4" 54 PM Care bandage EDT Center) Mepilex 384831 Mepilex 4" X SIGMACARE (foam 33618 2020 ed 4" bandage (Regenc y bandage) 4" 03:21: Extend ed X 4" 59 PM Care bandage EDT Center) Mepilex 151885 Mepilex 4" X SIGMACARE (foam 02540 2020 ed 4" bandage (Regenc y bandage) 4" 03:20: Extend ed X 4" 39 PM Care bandage EDT Center) Mepilex 848204 complet Mepilex 4" X SIGMACARE (foam 95933 2020 ed 4" bandage (Regenc y bandage) 4" 12:37: Extend ed X 4" 09 PM Care bandage EDT Center) Mepilex 649536 complet Mepilex 4" X SIGMACARE (foam 47279 2020 ed 4" bandage (Regenc y bandage) 4" 12:30: Extend ed X 4" 39 PM Care bandage EDT Center) Mepilex 665465 Mepilex 4" X SIGMACARE (foam 65522 2019 ed 4" bandage (Regenc y bandage) 4" 11:53: Extend ed X 4" 52 AM Care bandage EDT Center) Auryxia 391776 Auryxia 21 0 SIGMACARE (ferric 18408 2020 ed mg iron ([facility]ency citrate) 09:26: tablet Extende d 210 mg iron 17 AM Care tablet EDT Center) Drisdol 831973 Drisdol SI GMACARE (ergocalcif 49463 2019 ed 1,250 mcg (R egency polina 08:33: (50,000 Extended (vitamin 36 AM unit) Care d2)) 1,250 EDT capsule Center ) mcg (50,000 unit) capsule Lidocaine 563903 Lidocain e SIGMACARE Viscous 17456 2019 ed Viscous 2 % (Reg ency [...] subcutaneou or s pen [Lantu s] Lactobacill 091949 [place] [address] 2019 ed s (Regency acidoph-L.b 08:23: acidoph-L.b [...] Care Oral EDT Center) Tablet Dilaudid Dilaud 02/04/ 0.5 UNK active [facility] (Hy 2020 mg (Hydromorpho r Cou nty 11:21: ne) Health 06 PM Injection Care EDT 0.5 mg [employer] io n Medication administered onsite Dilaudid Dilaudid 02/05/2020 0.5 UNK active Dil audid [place] (Hy (Hy 10:21:10 PM mg (Hydromorphon e) County EDT Injection 0.5 mg [facility] [employer] Medication administered onsite 0.9% NaCl 0.9% NaCl 02/05/2020 1000 mL UNK active 0.9% [place] IV IV 10:21:10 PM EDT NaCl IV C Opality 1000 mL MD On-Line [facility] Medication administered onsite Methotrexate methotrexate 02/05/2020 2.5 Oral [place] 2.5 MG Oral 2.5 mg oral 04:32:00 PM mg 2.5 mg, = 1 tab, Oral, Monday Health - Tablet tablet EDT Nathalia methotrexate Brother s 2.5 mg oral Medical tablet Center Furosemide 80 FUROSEMIDE take 1 RP NEXTGEN [...] Tablet 12.5 mg oral route Medical - [place] 12.5 mg every day with Id dical [facility]) food This may be an active medication. No end date is available. Start date above may not reflect actual date the medication was s tarted. gabapentin 300 MG NEURONTIN take 2 capsule RP NEXTGEN ([facility] Oral Capsule by oral route Medical - [place] [Neurontin] 300 mg every evening as [facility]) 300 mg needed This may be an active medication. No end date is available. Start date above may not reflect actual date the medication was s tarted. 10 billion cell 10 1 capsule by mouth RP NEXTGEN ([facility] billion cell every day Id dical - [facility]) This may be an active medication. No end date is available. Start date above may not reflect actual date the medication was s tarted. Albuterol albuterol 2.5 04/17/2019 5.0 Nebulized [place] 0.83 MG/ML mg/3 mL 02:40:00 PM mg inhalation 5 mg, = 6 mL, NEB, q6hr (specified start), as needed for wheezing, PRN Health - Inhalant (0.083%) EDT Nathalia Solution inhalation Broth ers albuterol 2.5 solution Me dical mg/3 mL Center (0.083%) inhalation solution Ventolin HFA [id number] 04/17/2019 2.0 Inhalation [place] 90 mcg/inh 02:37:00 PM = 2 puf f(s), INH, QID, as needed for wheezing Health - inhalation EDT [facility] Albuterol albuterol 2.5 04/07/2019 Daniella 5.0 Inhalation [place] 0.83 MG/ML mg/3 mL 12:40:00 PM uti mg 5 mg, = 6 mL, INH, q6hr, # 60 EA, 0 Refill(s), as needed for wheezing, Pharmacy: [facility] #[id number], 6 mL INH q6hr,PRN:as needed for wheezing Health - Inhalant (0.083%) EDT on [place] Solution inhalation Broth ers albuterol 2.5 solution Me dical mg/3 mL Center (0.083%) inhalation solution Ventolin HFA [id number] 04/07/2019 Inh 2.0 Inhalation [place] 90 mcg/inh 12:40:00 PM yosvany = 2 puff(s), INH, QID, # 1 EA, 1 Refill(s), as needed for wheezing, Pharmacy: [facility] #[id number], 2 puff(s) INH QID,PRN:as needed for wheezing Health - inhalation EDT r [facility] Augmentin 875 [id number] 03/28/2019 1.0 Oral [place] mg-125 mg 01:47:00 PM amoxicillin (as trihydrate), 1 tab, Oral, q12hr (specified start), X 5 day(s), # 10 tab, 0 Refill(s), Pharmacy: [facility] #[id number], 1 tab Oral q12hr (specified start),x5 day(s) Health - oral tablet EDT [facility] 3 ML Victoza 18 03/25/2019 0.6 Subcutaneous [place] liraglutide 6 mg/3 mL 01:20:00 PM mg 0.6 mg, Subcutaneous, Daily, Has not started yet Health - MG/ML Pen subcutaneous EDT [facility] Victoza 18 Medical mg/3 mL Center subcutaneous solution albuterol [id number] 03/25/2019 2.0 Inhalation [place] Inhaler 01:19:00 PM 2 puff(s), INH, QID, as needed for wheezing, PRN Health - EDT [facility] Levofloxacin Levaquin 750 10/22/2018 750. Oral [place] 750 MG Oral mg oral 10:48:00 AM 0 mg 750 mg, = 1 tab, Oral, q24hr (specified start), X 5 day(s), # 5 tab, 0 Refill(s), Pharmacy: [facility] [id number], 1 tab Oral q24hr (specified start),x5 day(s) Health - Tablet tablet EDT [place] Levaquin 750 Brother s mg oral Medical tablet Center Furosemide 40 Lasix 40 mg 10/22/2018 40.0 Oral [place] MG Oral oral tablet 10:48:00 AM mg 40 mg, = 1 tab, Oral, BID, # 60 tab, 0 Refill(s), Pharmacy: [facility] [id number], 1 tab Oral BID,x30 day(s) Health - Tablet Lasix T Nathalia 40 mg oral [facility] albuterol [facility] [id number] 10/22/2018 Aer 2.0 Inhalation [place] free 90 10:48:00 AM kristal = 2 puff(s), INH, QID, # 18 gm, 0 Refill(s), as needed for wheezing, Pharmacy: [facility] [facility], 2 puff(s) INH QID,PRN:as needed for wheezing Health - mcg/inh EDT l [place] inhalation Hayden aerosol [facility] clonazepam [id number] 10/19/2018 0.5 Oral N uvance 04:10:00 PM mg 0.5 mg, Oral, BID, as needed for anxiety Health - EDT [facility] simvastatin [id number] 10/19/2018 10.0 Oral [place] 04:09:00 PM mg 10 mg, Oral, QHS, hasn't started medication yet [facility] - EDT [facility] Probiotic [id number] 10/19/2018 1.0 Oral Nu adam Formula 04:08:00 PM 1 cap, Ora l, Daily Health - EDT [facility] carvedilol [id number] 10/19/2018 12.5 Oral N uvance 04:06:00 PM mg 12.5 mg, Oral , BID Health - EDT [facility] Simvastatin simvastatin 10/09/2018 10.0 Oral [place] 10 MG Oral 10 mg oral 10:48:00 AM mg 10 mg, = 1 tab, Oral, Once a day (at bedtime), # 30 tab, 0 Refill(s) Health - Tablet tablet EDT [place] simvastatin [place] 10 mg oral Medical tablet [place] Auryxia 210 [id number] 10/09/2018 630. Oral [place] mg oral 10:46:00 AM 0 mg 630 mg, Or al, With meals, 0 Refill(s) Health - tablet EDT [facility] azithromycin [id number] 10/09/2018 1.0 Oral [place] 250 mg oral 10:43:00 AM = 1 packet(s), Oral, Daily, # 6 tab, 0 Refill(s), as directed on package labeling Health - tablet EDT [facility] predniSONE 10 [id number] 10/09/2018 10.0 Oral [place] mg oral 10:43:00 AM mg 10 mg, = 1 tab, Oral, Daily, # 7 tab, 0 Refill(s) Health - tablet EDT [facility] gabapentin [id number] 03/27/2018 600. Oral N uvance 02:26:00 PM 0 mg 600 mg, Oral, QHS, 0 Refill(s) Health - EDT [facility] MiraLax [id number] 10/11/2017 Ora 17.0 Oral Nuva nce 02:45:00 PM l g 17 gm, = 1 EA , Oral, Daily, 0 Refill(s) Health - EDT [facility] Bio-K+ [id number] 10/11/2017 Cap 2.0 Oral Nuvan ce 02:45:00 PM sul 2 cap, Oral, Daily, 0 Refill(s) Health - EDT e [facility] DuoNeb [id number] 10/11/2017 Daniella 3.0 Nebulized [place] 02:45:00 PM uti mL inhalation 3 mL, NEB, QID, 0 Refill(s), as needed for shortness of breath or wheezing, PRN Health - EDT on [facility] felicity n calcium calcium 10/04/20172000 Oral Nuv ance acetate 667 acetate 667 09:56:00 AM .0 2,001 mg, = 3 cap, Oral, With meals Health - MG Oral mg oral EDT mg Nathalia Capsule capsule [place] calcium Medical acetate 667 Center mg oral capsule carvedilol 25 carvedilol 25 10/04/2017 25.0 Oral [place] MG Oral mg oral 09:56:00 AM mg 25 mg, = 1 tab, Oral, BID Health - Tablet tablet EDT Nathalia carvedilol 25 [facility] rs mg oral Medical tablet [place] calcium calcium 10/04/2017 667. Oral Nuv ance acetate 667 acetate 667 09:56:00 AM 0 mg 667 mg, = 1 cap, Oral, with snacks Health - MG Oral mg oral EDT Nathalia Capsule capsule [facility] Medical [facility] 667 Center mg oral capsule mupirocin 2% [id number] 10/04/2017 1.0 Topical [place] topical cream 09:56:00 AM 1 ap p, TOP, TID, apply to left leg Health - EDT [facility] Vitamin B12 [id number] 09/02/2013 Inj 1000 Intramuscular [place] 04:48:00 PM ect .0 1,000 mcg, IM , q30day, 0 Refill(s) Health - EDT abl ug [facility] Famotidine 10 Famotidine co [place] MG Oral [10 mg mp County Tablet Tablet]: 10 le Health Famotidine [...] 3 TIMES A DAY Insulin Lantus co [place] Glargine 100 (Insulin mp r C ounty UNT/ML Glargine) le Health Injectable [100 unit/mL te C are Solution Unit]: 10 d Corpor atio Lantus Unit n (Insulin Subcutaneous Glargine) Q10PM [100 unit/mL Unit]: 10 Unit Subcutaneous Q10PM Lidocaine Lidocaine co [place] Hydrochloride Viscous mp r C ounty [...] Oral Q6HPRN PRN Pain Diphenhydrami Diphenhydrami co [place] ne ne HCl [25 mg mp r Coun ty Hydrochloride Capsule]: 25 le Health 25 MG Oral MG Oral Q10PM te Care Capsule d Corporatio Diphenhydrami n ne HCl [25 mg Capsule]: 25 MG Oral Q10PM sevelamer Sevelamer co [facility] heste carbonate Carbonate mp r Cou nty 26.7 MG/ML [0.8 gram le Heal Oral Packet]: 800 te Care Suspension MG Oral TIDAC d Corporatio Sevelamer n Carbonate [0.8 gram Packet]: 800 MG Oral TIDAC Freeze Dried [id number] co [place] Acidophilus mp r County (Lactobacillu le Health s te Care acidophilus) d Corpora felicity [Capsule]: 1 n Capsule Oral Q10AM Calcitriol Calcitriol co Evert tcheste 0.62363 MG [0.25 mcg mp r Co unty [...] co [place] (DRISDOL) mp r County [address] UNIT le Health (Free Text te Care Medication) d Corporat io [97018 UNIT n Capsule]: [id number] Unit Oral DIRECTED Insurance Providers Payer name Policy type Policy ID Covered Covered democrat's Policy P / Coverage democrat ID relationship to Goyal Inf ormation type goyal MEDICARE [id number] SP [id number] [id number] AARP 17 [id number] Self [id number] Medicare Part 2 [id number] Self [id number] Medicare Part 18 [id number] Self [id number] A AARP Other [id number] Self [id number] Medicare Part Medicare [id number] Self [id number] Part B Medicare Part Medicare [id number] Self [id number] A Part A UNK UNK UNK UNK [id number] COMM [id number] Self [id number] MCARE [id number] Self [id number] [id number] COMM [id number] Self [id number] MCARE [id number] Self [id number] T02 [facility] AARP [id number] 1 [id number] [facility] Medicare [id number] 1 [id number] Part B Par Providers Problems, Conditions, and Diagnoses Code Display Name Description Problem Type Effective Data Sour ce(s) Dates R50.9 Fever, unspecified Fever, unspecified Diagnosis 0 [facility] 12:00:00 AM ([facility]) L13.9 Bullous disorder, Bullous disorder, Diagnosis 03/05/2020 [facility] unspecified unspecified 12:00:00 AM ([facility]) F51.01 Primary insomnia Primary insomnia Diagnosis 03/04/2020 SI [facility] 12:00:00 AM ([facility]) K64.8 Other hemorrhoids Other hemorrhoids Diagnosis 03/02/2020 [facility] 12:00:00 AM ([facility]) L89.152 Pressure ulcer of Pressure ulcer of Diagnosis 02/29/2020 [facility] sacral region, stage sacral region, 12:00:00 AM ([facility] 2 stage 2 EDT [address] [facility]) S51.802A Unspecified open Unspecified open Diagnosis 02/29/2020 [...] in other ANEMIA IN OTHER Diagnosis 02/28/2020 [place] chronic diseases CHRONIC DISEASES 03:00:00 PM C Opality classified elsewhere CLASSIFIED EDT Care [facility] E87.5 Hyperkalemia HYPERKALEMIA Diagnosis 02/28/2020 [place] 03:00:00 PM [facility] [employer] [facility] [employer] Z87.891 Personal history of PERSONAL HISTORY OF Diagnosis [place] nicotine dependence NICOTINE DEPENDENCE 03:00:0 0 PM [facility] [employer] [facility] [employer] Z89.411 Acquired absence of ACQUIRED ABSENCE OF Diagnosis [place] right great toe RIGHT GREAT TOE 03:00:00 PM Cou [facility] [employer] [facility] [employer] Z89.412 Acquired absence of ACQUIRED ABSENCE OF Diagnosis [place] left great toe LEFT GREAT TOE 03:00:00 PM Count [employer] [facility] [employer] 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 Diagnosis [place] dialysis DIALYSIS 03:00:00 PM [facility] [employer] [facility] [employer] E11.22 Type 2 diabetes TYPE 2 DIABETES Diagnosis 02/28/2020 [place] mellitus with MELLITUS W DIABETIC 03:00:00 PM [employer] [facility] diabetic chronic CHRONIC KIDNEY EDT Care kidney disease DISEASE Corporatio n A04.72 Enterocolitis due to ENTEROCOLITIS D/T Diagnosis 02/28/20 [place] Clostridium CLOSTRIDIUM 03:00:00 PM [facility] difficile, not DIFFICILE, NOT SPCF EDT C are specified as [employer]UR Corporation recurrent D61.818 Other pancytopenia OTHER PANCYTOPENIA Diagnosis 0 [place] [facility] Z94.84 Stem cells STEM CELLS Diagnosis 02/28/2020 [place] transplant status TRANSPLANT STATUS 03:00:00 [facility] 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 02/28/2020 [place] lymphoma, B-CELL LYMPHOMA, 03:00:00 PM [facility] unspecified site UNSPECIFIED SITE EDT [employer] I12.0 Hypertensive chronic HYP CHR KIDNEY Diagnosis 02/28/2020 [place] kidney disease with DISEASE W STAGE 5 03:00:00 PM [facility] stage 5 chronic CHR KIDNEY DISEASE EDT C are kidney disease or OR ESRD Corpora tion end stage renal disease N18.6 End stage renal END STAGE RENAL Diagnosis 02/28/2020 [place] disease DISEASE 03:00:00 PM [facility] L89.153 Pressure ulcer of Pressure ulcer of Diagnosis 02/28/2020 [facility] sacral region, stage sacral region, 12:00:00 AM ([facility] 3 stage 3 EDT [facility]) J20.9 Acute bronchitis, Acute bronchitis, Diagnosis 02/28/2020 [facility] unspecified unspecified 12:00:00 AM ([facility]) E66.9 Obesity, unspecified Obesity, Diagnosis 02/28/2020 [facility] unspecified 12:00:00 AM ([facility]) I10 Essential (primary) Essential (primary) Diagnosis 020 [facility] hypertension hypertension 12:00:00 AM ([facility]) 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 Diffuse large Diagnosis 02/28/2020 S IGMACARE lymphoma, B-cell lymphoma, 12:00:00 AM ([facility] y unspecified site unspecified site EDT Ex [facility]) D50.9 Iron deficiency Iron deficiency Diagnosis 02/28/2020 [facility] anemia, unspecified anemia, unspecified 12:00:0 0 AM [facility] F41.9 Anxiety disorder, Anxiety disorder, Diagnosis 02/28/2020 [facility] unspecified unspecified 12:00:00 AM ([facility]) S41.001A Unspecified open Unspecified open Diagnosis 02/28/2020 [...] Diagnosis 02/28/2020 [facility] deficiency, deficiency, 12:00:00 AM ([facility] unspecified unspecified EDT Extended [facility] [place]) K13.79 Other lesions of Other lesions of Diagnosis 02/28/2020 SI [facility] oral mucosa oral mucosa 12:00:00 AM ([facility]) N25.0 Renal osteodystrophy Renal Diagnosis 02/28/2020 [facility] osteodystrophy 12:00:00 AM ([facility]) G47.00 Insomnia, Insomnia, Diagnosis 02/28/2020 [facility] unspecified unspecified 12:00:00 AM ([facility]) I82.401 Acute embolism and Acute embolism and Diagnosis 0 [facility] thrombosis of thombos unsp deep 12:00:00 AM (Re gency unspecified deep veins of r low EDT Exte nded Care veins of right lower extrem Cent er) extremity E11.9 Type 2 diabetes Type 2 diabetes Diagnosis 02/28/2020 [facility] mellitus without mellitus without 12:00:00 AM ( [facility] complications complications T Extended [facility] [place]) E63.9 Nutritional Nutritional Diagnosis 02/28/2020 [facility] deficiency, deficiency, 12:00:00 AM ([facility] unspecified unspecified EDT Extended Car e Center) K21.9 Gastro-esophageal Gastro-esophageal Diagnosis 02/28/2020 [facility] reflux disease reflux disease 12:00:00 AM (Rege ncy without esophagitis without esophagitis EDT Extended [facility] [place]) D63.1 Anemia in chronic Anemia in chronic Diagnosis 02/28/2020 [facility] kidney disease kidney disease 12:00:00 AM (Anjelica cuencay T [facility]) L29.9 Pruritus, Pruritus, Diagnosis 02/28/2020 [facility] unspecified unspecified 12:00:00 AM ([facility]) E83.51 Hypocalcemia Hypocalcemia Diagnosis 02/28/2020 [facility] 12:00:00 AM ([facility]) Z00.00 Encounter for Encntr for general Diagnosis 02/28/2020 SIG MACARE general adult adult medical exam 12:00:00 AM (R egency medical examination w/o abnormal EDT Ext ended Care without abnormal findings Center) findings M62.81 Muscle weakness Muscle weakness Diagnosis 02/28/2020 [facility] (generalized) (generalized) 12:00:00 AM ([facility] EDT [facility]) R52 Pain, unspecified Pain, unspecified Diagnosis 02/28/2020 [facility] 12:00:00 AM ([facility]) Z11.1 Encounter for Encounter for Diagnosis 02/28/2020 SIG[facility]AR E screening for screening for 12:00:00 AM ([facility] respiratory respiratory T Extended Car e tuberculosis tuberculosis Center) N18.6 End stage renal End stage renal Diagnosis 02/28/2020 [facility] disease disease 12:00:00 AM ([facility]) 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 Pemphigus vulgaris Diagnosis 0 [facility] 12:00:00 AM ([facility]) L12.0 Bullous pemphigoid BULLOUS PEMPHIGOID Diagnosis 0 [place] 11:58:00 [facility] R53.1 Weakness Weakness Diagnosis 02/05/2020 [facility] 12:34:00 PM - [facility] J90 Pleural effusion, Pleural effusion, Diagnosis 10/16/2019 [facility] not elsewhere not elsewhere 03:30:54 AM - Bobo johnson classified classified [facility] H26.8 Other specified Posterior Diagnosis 08/22/2019 [facility] cataract subcapsular 02:00:00 PM ([facility] cataract EST Medical [facility]) J94.2 Hemothorax Hemothorax Diagnosis 05/06/2019 [facility] 10:38:00 AM - [place] [facility] N18.6 End stage renal Pleural effusion, Diagnosis 04/17/2019 [facility] disease not elsewhere 03:38:00 PM - [place] classified [facility] R06.02 Shortness of breath Shortness of breath Diagnosis 019 [facility] 07:23:00 PM - [place] [facility] J91.8 Pleural effusion in Pleural effusion in Diagnosis 019 [facility] other conditions other conditions 08:49:00 AM - [place] classified elsewhere classified [facility] N18.9 Chronic kidney Chronic renal Diagnosis 01/18/2019 [facility] disease, unspecified failure, 02:30:00 PM (Ca remount unspecified CKD [facility]) Z85.72 Personal history of Personal history of Diagnosis 019 [facility] non-Hodgkin lymphoma 02:30:00 PM ([facility] lymphomas [facility]) Z01.419 Encounter for Encounter for Diagnosis 01/18/2019 [facility] gynecological general 02:30:00 PM ([facility] examination gynecological exam ED Medic [facility] (general) (routine) without abnormal [facility] without abnormal finding Group [facility] ) findings 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 Diagnosis 10/19/2018 [facility] failure failure 12:08:00 PM - [place] [facility] I42.9 Cardiomyopathy, Cardiomyopathy, Diagnosis 07/26/2018 [facility] unspecified unspecified 03:53:00 PM - [place] [facility] Z12.31 Encounter for Encounter for Diagnosis 03/06/2018 [facility] screening mammogram screening mammogram 12:26:5 4 PM - [place] for malignant for malignant [facility] neoplasm of breast neoplasm of breast [facility] E11.349 Type 2 diabetes Diabetic Diagnosis 06/03/2015 [facility] mellitus with severe retinopathy 03:00:00 PM ([facility] nonproliferative associated with EST Med ica - [place] diabetic retinopathy type 2 diabetes [facility] without macular mellitus, without Gr oup PC) edema macular edema, with severe nonproliferative retinopathy Surgeries/Procedures Procedure Description Date Indications Data Source(s) Vats Video Assisted 04/22/2019 [facility] Thoroscopy (Right) 03:49:00 PM EST [facility] auto-populated from documented surgical case Thoracotomy (None) 04/22/2019 03:49:00 PM EST [facility] auto-populated from documented surgical case Bronchoscopy Flexible (None) 04/22/2019 03:49:00 PM ES T [facility] auto-populated from documented surgical case PREV VISIT NEW AGE 40-64 PREV VISIT NEW 01/18/2019 12:00:00 [facility] ([facility] AGE 40-64 AM [facility]) Cervical or vaginal Ca 01/18/2019 12:00:00 N EXTGEN ([facility] cancer screening; pelvic screen;pelvic/br AM EDT Medical [facility] and clinical breast [facility] exam [facility]) examination Repair Pseudoaneurysm 10/10/2018 06:11:00 [facility] - (Right) PM EDT [facility] auto-populated from documented surgical case Colonoscopy - SN (None) 03/28/2018 10:51:00 AM EDT [facility] auto-populated from documented surgical case RIGHT arm AV fistula 09/09/2015 12:00:00 [facility] upper 08/18/2015 12:00:00 [facility] chest currently used for AM [facility] EYE EXAM NEW PATIENT EYE EXAM NEW 06/03/2015 12:00:00 [facility] ([facility] PATIENT [facility]) Tubal Ligation 1996 [facility] Stem Cell Transplant [facility] 11/28 [facility] right groin stent [facility] Andreea Cath on right [facility] - chest wall 02/2010 [facility] Lymph node removed X2 [facility] 02/2010 and 07/2011 amputaton right 2nd toe. [facility] amputation right great toe N [facility] Amputation of hallux (procedure) [facility] left Results ID Date Data Source [id number] 02/28/2020 07:45:00 AM EDT [facility] [id number] Corporation Name Value Range Interpretation Description Data Sup porting Code Source(s) Document(s ) Leukocytes 20.0 k/mm3 4.8-10 <td> 02/28/2020 [place] [#/volume] in .8 07:45</td><td> [facility] Blood by k/mm3 WBC Health Care Automated </td><td><[employer] count raph styleCode="Bold "> 20.0 H </paragraph>
(4.8-10.8) k/mm3 </td> Erythrocytes 2.71 m/mm3 3.90-5 <td> 02/28/2020 [facility] [#/volume] in .20 07:45</td><td> [facility] Blood m/mm3 RBC Health Care </td><td><[employer] raph styleCode="Bold "> 2.71 L </paragraph>
(3.90-5.20) m/mm3 </td> Erythrocyte 109.6 fL 81.0-9 <td> 02/28/2020 [place] mean 9.0 fL 07:45</td><td> [facility] corpuscular MCV Health Care volume </td><td><[employer] [Entitic raph volume] by styleCode="Bold Automated "> count 109.6 H </paragraph>
(81.0-99.0) fL </td> Hemoglobin 9.6 g/dL 12.0-1 <td> 02/28/2020 [place] [Mass/volume] 6.0 07:45</td><td> [facility] in Blood g/dL HGB Health Care </td><td><[employer] raph styleCode="Bold "> 9.6 L </paragraph>
(12.0-16.0) g/dL </td> Erythrocyte 35.4 pg 27.0-3 <td> 02/28/2020 [place] mean 1.5 pg 07:45</td><td> [facility] corpuscular MCH Health Care hemoglobin </td><td><[employer] [Entitic mass] raph by Automated styleCode="Bold count "> 35.4 H </paragraph>
(27.0-31.5) pg </td> Hematocrit 29.7 % 37.0-4 <td> 02/28/2020 [place] [Volume 7.0 % 07:45</td><td> County Fraction] of HCT Health Care Blood by </td><td><[employer] Automated raph count styleCode="Bold "> 29.7 L </paragraph>
(37.0-47.0) % </td> Erythrocyte 32.3 % 32.0-3 <td> 02/28/2020 [place] mean 6.0 % 07:45</td><td> [facility] corpuscular MCHC </td><td> Health Care hemoglobin Corporation concentration 32.3 [Mass/volume] in Blood from
Fetus by (32.0-36.0) % Automated </td> count Platelet mean 10.6 fL 9.8-12 <td> 02/28/2020 [facility] r volume .8 fL 07:45</td><td> County [Entitic MPV </td><td> Health Care volume] in Corporation Blood by 10.6 Automated count
(9.8-12.8) fL </td> Erythrocyte 20.8 % 11.5-1 <td> 02/28/2020 [place] distribution 4.5 % 07:45</td><td> County width [Entitic RDW Health Care volume] by </td><td><[employer] Automated raph count styleCode="Bold "> 20.8 H </paragraph>
(11.5-14.5) % </td> Platelets 212 k/mm3 160-41 <td> 02/28/2020 [place] [#/volume] in 0 07:45</td><td> [facility] Blood by k/mm3 Platelet Count Health Care Automated </td><td> Corporation count 212
(160-410) k/mm3 </td> Lymphocytes 11.7 % 17.0-5 <td> 02/27/2020 [place] [#/volume] in 0.0 % 06:00</td><td> [facility] Blood by Lymphocytes Health Care Automated </td><td><[employer] count raph styleCode="Bold "> 11.7 L </paragraph>
(17.0-50.0) % </td> Monocytes/Leuk 6.7 % 0.0-11 <td> 02/27/2020 [facility] er ocytes [Pure .0 % 06:00</td><td> [facility] number Monocytes. Health Care fraction] in </td><td> [facility] Blood by Automated 6.7 count
(0.0-11.0) % </td> Basophils+Eosi 0.5 % 0.0-5. <td> 02/27/2020 [facility] er nophils+Monocy 0 % 06:00</td><td> [facility] feliciano [#/volume] Eosinophils Health Care in Blood by </td><td> [employer] Automated count 0.5
(0.0-5.0) % </td> Basophils 0.3 % 0.0-2. <td> 02/27/2020 [place] [#/volume] in 0 % 06:00</td><td> [facility] Blood by Basophils Health Care Automated </td><td> Corporation count 0.3
(0.0-2.0) % </td> Immature 3.6 % 0.0-0. <td> 02/27/2020 [place] granulocytes/1 5 % 06:00</td><td> [facility] 00 leukocytes IG% Health Care in Blood by </td><td><[employer] Automated raph count styleCode="Bold "> 3.6 H </paragraph>
(0.0-0.5) %
The IG fraction represents metamyelocytes, myelocytes and/or
promyelocytes and is only reported as part of the automated
differential when found at a percentage of less than 6.
If higher than 6%, a manual differential will be performed.

(0.0-0.5) % </td> Neutrophils 77.2 % 40.0-7 <td> 02/27/2020 [place] [#] in Body 6.0 % 06:00</td><td> [facility] fluid by Neutrophils Health Care Manual count </td><td><[employer] raph styleCode="Bold "> 77.2 H </paragraph>
(40.0-76.0) % </td> Atypical 5.0 % % <td> 02/18/2020 [place] Lymphs 15:13</td><td> [facility] Atypical Lymphs Health Care </td><td><[employer] graph styleCode="Bold "> 5.0 * AB </paragraph>
% </td> Anisocytosis Slight <td> 02/27/2020 [place] [Presence] in 06:00</td><td> [facility] Blood by Light Anisocytosis Health Care microscopy </td><td> Corporation Slight
</td> Myelocytes 3.0 % % <td> 02/24/2020 [place] [#/volume] in 06:00</td><td> [facility] Blood by Myelocyte Health Care Manual count </td><td><[employer] raph styleCode="Bold "> 3.0 * AB </paragraph>
% </td> Metamyelocytes 2.0 % % <td> 02/24/2020 [facility] er [#/volume] in 06:00</td><td> [facility] Blood by Metamyelocytes Health Care Manual count </td><td><[employer] raph styleCode="Bold "> 2.0 * AB </paragraph>
% </td> Basophilic Occasional <td> 02/22/2020 [place] stippling 05:51</td><td> County [Presence] in Basophilic Health Care Blood by Light Stippling Corporation microscopy </td><td> Occasional
</td> Ovalocytes Few <td> 02/21/2020 [place] [Presence] in 08:03</td><td> [facility] Blood by Light Ovalocytes Health Care microscopy </td><td> Corporation Few
</td> Macrocytes Slight <td> 02/27/2020 [place] [Presence] in 06:00</td><td> [facility] Blood by Light Macrocytic Health Care microscopy </td><td> [employer] Slight
</td> Polychromasia Slight <td> 02/24/2020 [facility] r [Presence] in 06:00</td><td> [facility] Blood by Light Polychromasia Health Care microscopy </td><td> [employer] Slight
</td> Poikilocytosis Slight <td> 02/27/2020 [facility] er [Presence] in 06:00</td><td> [facility] Blood by Light Poikilocytosis Health Car e microscopy </td><td> [employer] Slight
</td> Schistocytes RARE <td> 02/21/2020 [place] [Presence] in 08:03</td><td> [facility] Blood by Light Schistocytes Health Care microscopy </td><td> [employer] RARE
</td> Potassium 4.3 mEq/L 3.5-5. <td> 02/28/2020 [place] [Moles/volume] 1 07:45</td><td> County in Serum or mEq/L Potassium-Serum Health Care Plasma </td><td> [employer] 4.3
(3.5-5.1) mEq/L </td> Glucose 90 mg/dL 70-105 <td> 02/28/2020 [place] [Mass/volume] mg/dL 07:45</td><td> County in Blood Glucose-Serum Health Care </td><td> [employer] 90
(70-105) mg/dL </td> Sodium 135 mEq/L 135-14 <td> 02/28/2020 [place] [Moles/volume] 5 07:45</td><td> County in Serum or mEq/L Sodium-Serum Health Care Plasma </td><td> [employer] 135
(135-145) mEq/L </td> Carbon 29 mEq/L 22-30 <td> 02/28/2020 [place] dioxide, total mEq/L 07:45</td><td> County [Moles/volume] CO2 </td><td> Health Car e in Serum or Corporation Plasma 29
(22-30) mEq/L </td> Urea nitrogen 47 mg/dL 6-22 <td> [facility] [Mass/volume] mg/dL 07:45</td><td> [place] in Blood BUN Health Care </td><td><[employer] raph styleCode="Bold "> 47 H </paragraph>
(6-22) mg/dL </td> Chloride 97 mEq/L 98-107 <td> 02/28/2020 [place] [Moles/volume] mEq/L 07:45</td><td> County in Serum or Chloride Health Care Plasma </td><td><[employer] raph styleCode="Bold "> 97 L </paragraph>
(98-107) mEq/L </td> Creatinine 4.82 mg/dL 0.57-1 <td> 02/28/2020 [place] [Moles/volume] .11 07:45</td><td> County in Serum or mg/dL Creatinine. Health Care Plasma </td><td><[employer] raph styleCode="Bold "> 4.82 H </paragraph>
(0.57-1.11) mg/dL </td> Alanine 15 U/L 6-55 <td> 02/27/2020 [place] aminotransfera U/L 06:00</td><td> County se [Enzymatic ALT (SGPT) Health Care activity/volum </td><td> Corporation e] in Serum or Plasma 15
(6-55) U/L </td> Aspartate 18 U/L 4-35 <td> 02/27/2020 [place] aminotransfera U/L 06:00</td><td> County se [Enzymatic AST (SGOT) Health Care activity/volum </td><td> Corporation e] in Serum or Plasma 18
(4-35) U/L </td> Bilirubin.tota 0.6 mg/dL 0.2-1. <td> [facility]</td><td> [facility] [Mass/volume] mg/dL Bilirubin - Health Care in Blood Total [employer] </td><td> 0.6
(0.2-1.3) mg/dL </td> Proteins - 6.2 g/dL 6.4-8. <td> 02/27/2020 [place] Total 3 g/dL 06:00</td><td> [facility] Proteins - Health Care Total [employer] </td><td><[employer] raph styleCode="Bold "> 6.2 L </paragraph>
(6.4-8.3) g/dL </td> Calcium 8.7 mg/dL 8.6-10 <td> 02/28/2020 [place] [Mass/volume] .2 07:45</td><td> [facility] in Blood mg/dL Calcium Health Care </td><td> [employer] 8.7
(8.6-10.2) mg/dL </td> Albumin 2.5 g/dL 3.4-4. <td> 02/27/2020 [place] [Mass/volume] 8 g/dL 06:00</td><td> [facility] in Serum or Albumin Health Care Plasma </td><td><[employer] raph styleCode="Bold "> 2.5 L </paragraph>
(3.4-4.8) g/dL </td> Anion gap in 9 mEq/L 7-13 <td> 02/28/2020 [place] Serum or mEq/L 07:45</td><td> [facility] Plasma Anion Gap Health Care </td><td> [employer] 9
(7-13) mEq/L </td> Hemolysis No <td> 02/28/2020 [place] index of Serum Hemolysis 07:45</td><td> County or Plasma Hemolysis Index Health Care </td><td> [facility] No Hemolysis
</td> Globulin 3.7 gm/dL 2.9-4. <td> 02/27/2020 [place] [Mass/volume] 0 06:00</td><td> [facility] in Serum gm/dL Globulin Health Care </td><td> [facility] 3.7
(2.9-4.0) gm/dL </td> Lipemic index No Lipemia <td> 02/28/2020 [facility] Serum or 07:45</td><td> [facility] Plasma Lipemia Index Health [facility] Healthcare </td><td> [facility] No Lipemia
</td> Icteric index Not Icteric <td> 02/28/2020 [facility] Serum or 07:45</td><td> [facility] Plasma Icteric Index [facility] </td><td> [facility] Not Icteric
</td> Phosphate 3.4 mg/dL 2.3-4. <td> 02/28/2020 [place] [Mass/volume] 7 07:45</td><td> [facility] in Serum or mg/dL Inorganic Health Care Plasma Phosphorus [facility] </td><td> 3.4
(2.3-4.7) mg/dL </td> aPTT panel - 26.0 secs 25.0-3 <td> 02/28/2020 [place] Platelet poor 6.5 07:45</td><td> [facility] plasma secs Partial [facility] Thromboplastin [facility] Time </td><td> 26.0
(25.0-36.5) secs
Results confirmed. Test repeated
PLEASE NOTE: New reference range in effect January 06, 2020.

(25.0-36.5) secs </td> Prothrombin 9.5 secs 9.4-12 <td> 02/28/2020 [place] time (PT) .5 07:45</td><td> [facility] secs Prothrombin Health Care Time. [facility] </td><td> 9.5
(9.4-12.5) secs </td> Source BONE MARROW <td> 02/13/2020 [place] 14:00</td><td> [facility] Source Health Care </td><td> [facility] BONE MARROW
</td> Fibrinogen 494 mg/dL 200-40 <td> 02/13/2020 [place] [Mass/volume] 0 06:00</td><td> County in Platelet mg/dL Fibrinogen Health Care poor plasma by [facility] Coagulation </td><td><astrid assay raph styleCode="Bold "> 494 H </paragraph>
(200-400) mg/dL
PLEASE NOTE: New reference range in effect January 06, 2020.

(200-400) mg/dL </td> Uric Acid 4.7 mg/dL 2.6-6. <td> 02/20/2020 [place] 0 06:20</td><td> County mg/dL Uric Acid [facility] </td><td> [facility] 4.7
(2.6-6.0) mg/dL </td> Glucose 85 mg/dL 70-105 <td> 02/28/2020 [place] [Mass/volume] mg/dL 09:07</td><td> County in Capillary Glucose - Health Care blood by [employer] [facility] Glucometer </td><td> 85
(70-105) mg/dL </td> Hemoglobin 6.8 % 4.0-5. <td> 02/06/2020 [place] A1C 6 % 06:40</td><td> [facility] Hemoglobin A1C Health Care </td><td><para Corporation graph styleCode="Bold "> 6.8 H </paragraph>
(4.0-5.6) [...]
11 269
12 298
Source: Adapted from [place] [employer]. Standards of medical
care in diabetes-2014. Diabetes Care.2014;37([place] pp 1):S14-S80, table 8.

(4.0-5.6) % </td> Magnesium 2.2 mg/dL 1.6-2. <td> 02/28/2020 [place] [Mass/volume] 6 07:45</td><td> County in Serum or mg/dL Magnesium [facility] Plasma </td><td> Corporation 2.2
(1.6-2.6) mg/dL </td> ID Date Data Source [id number] 02/26/2020 10:25:00 AM EDT [facility] Name Value Range Interpretation Code Description Data Renae rce(s) Supporting Document(s ) SARS-COV-2 [place] RNA RT-PCR [facility] This lab was ordered by [facility] and reported by [facility]. ID Date Data Source [id number] 02/19/2020 02:00:00 PM EDT [facility] [id number] Corporation Name Value Range Interpretation Description Data Sup porting Code Source(s) Document(s ) Chest (PACSIMAGE <td> 02/19/2020 [place] Portable 14:00</td><td> [facility] ) Final Chest Portable Health Care Result </td><td><[facility] Name: alexi CRENSHAW, styleCode="Italsalomon RADHA MRN: s">(PACSIMAGE [id number] Sex: F : )</paragraph><br/ 1965 >
Final Location: F Result Admitting

Physician: Name: TRISHA CRENSHAW
MRN: Requesting [id number] Sex: F Physician:
KATHIE ARREGUIN : 1965 [...] 14:17

</td> Head With (PACSIMAGE <td> 02/21/2020 [place] Contrast- 16:34</td><td> [facility] CT ) Final Head With Health Care Result Contrast-CT Corporation Name: </td><td>ROMULO Novoa ph D MRN: styleCode="Italic [id number] Sex: F s">(PACSIMAGE : 1965 )</paragraph><br/ Location: F >
Final Admitting Result Physician:

TRISHA Name: LIBRADO CRENSHAW Requesting
MRN: Physician: [id number] Sex: F ALIS LOREDO
Exam: CT : 1965 HEAD C+ Location: [...] 02/21/2020 19:04

</td> Guide (PACSIMAGE <td> 02/13/2020 [place] Cyst 12:00</td><td> [facility] ) Final Guide [facility] n-CT Result Asp[facility] Corporation Name: </td><td>ROMULO Novoa ph D MRN: styleCode="Italsalomon [id number] Sex: F s">(PACSIMAGE : 1965 )</paragraph><br/ Location: F >
Final Admitting Result Physician:

SHI MEJIA Name: DEN, Requesting RADHA Physician:
MRN: JOSHUA ECHAVARRIA [id number] Sex: F Exam: CT
GUIDE FOR : 1965 NEEDLE BIOPSY Location: F 02/13/2020
15:00 Admitting PROCEDURE: CT Physician: SHI MEJIA percutaneous
bone marrow Requesting biopsy Physician: JOSHUA History: ECHAVARRIA Diffuse large

B-cell Exam: CT GUIDE lymphoma. [...] 02/13/2020 15:28

</td> Head (PACSIMAGE <td> 02/17/2020 [facility] 15:30</td><td> County Contrast- ) Final Head Without Health Care CT Result Contrast-CT Corporation Name: </td><td><lore CRENSHAW, alexi GARCIA MRN: styleCode="Chris [id number] Sex: F s">(PACSIMAGE : 1965 )</paragraph><br/ Location: F >
Final Admitting Result Physician:

SHI MEJIA Name: Robinson CRENSHAW Physician:
MRN: NENA SIMON [id number] Sex: F Exam: CT
HEAD C- : [...] appropriate. suggestive
of age-indeterminate Resident lacunar Radiologist: agata, Corbin Vega probably chronic. MD Resident Please Radiologist
note, [...] 02/17/2020 16:12

</td> Thorax (PACSIMAGE <td> 02/21/2020 [place] C+/Abd/Pe 16:35</td><td> County l C+/C- ) Final Thorax C+/Abd/Pel Health C are -CT Result C+/C- -CT Corporation Name: </td><td><ROMULO Hudson ph D MRN: styleCode="Italic [id number] Sex: F s">(PACSIMAGE : 1965 )</paragraph><br/ Location: F >
Final Admitting Result Physician:

TRISHA Name: LIBRADO CRENSHAW Requesting
MRN: Physician: [id number] Sex: F ALIS LOREDO
Exam: CT : 1965 THORAX Location: F [...] 02/21/2020 22:13

</td> ID Date Data Source [id number] 02/19/2020 07:50:00 AM EDT [facility] [id number] Corporation Name Value Range Interpretation Description Data Source(s ) Supporting Code Document(s ) Antibody NEG <td> [place] Screen 02/19/2020 [facility] 07:50</td><td> Care Antibody Corporation Screen </td><td> NEG
</td> ABO-Rh Type A NEG <td> [place] 02/19/2020 [facility] 07:50</td><td> Care ABO-Rh Type Corporation </td><td> A NEG
</td> Specimen 02/22/20 <td> [place] expiration 20 23:59 02/19/2020 [facility] date of Blood 07:50</td><td> Care Specimen Corporation Expiration Date </td><td> 02/22/2020 23:59
</td> ID Date Data Source [id number] 02/07/2020 11:02:[address] [facility] Received critical value from lab stating patient's blood culture is showing Gram positive rods in aerobic bottle. Patient was transferred from [facility] to [facility]. I called the numbers listed in the patient's bennett t to discuss the results and ensure patient is at facility to receive appropriate tr eatment. Home number [phone] reached patient's son, Haile, who states that he believes patient is still admitted at [facility]. Attempted patient's mobile [phone], left message to return call.02/05/2020 15:08:46 Comment by: Marina Reyes ve vc for treatment -------Marco [address] [place] [address] [id number] BURLINGAME [id number] f/s disc requestedElectronically signed by Almita Walls PA-C 02/07/2020 23:02 EDT Name Value Range Interpretation Code Description Data Renae rce(s) Supporting Document(s ) ID Date Data Source [id number] 02/07/2020 03:47:00 PM EDT [facility] Name Value Range Interpretation Code Description Data Renae rce(s) Supporting Document(s ) SARS-COV-2 [place] RNA RT-PCR [facility] [place] This lab was ordered by [facility] and reported by [facility]. ID Date Data Source [id number] 02/05/2020 03:34:[address] [facility] Patient Name: RADHA CRENSHAW MMRN: [id number] General DiagnosticACCESSION EXAM DATE/TIME PROCEDURE ORDERING PROVIDER [id number] 02/05/2020 15:30 EDT XR Chest Portable Albert BENAVIDES, Shayy Kwon (Verified)Olivia son For Exam(XR Chest Portable) Chest PainReportPROCEDURE: [...] nt infiltrate and/or effusion.Thank you for allowing [facility] to participate in the evaluation of this patient. Final Dictated: Jaden camacho MD, Manuelito Wade02/05/20 15:33Signed: Manuelito Hall MD 02/05/20 15:34 Transcribed by: DOROTHY Name Value Range Interpretation Code Description Data Renae rce(s) Supporting Document(s ) ID Date Data Source [id number] 02/10/2020 04:00:[address] [facility] 1965 [phone] Microbiology - Blood CulturesPROCEDURE: [...] Supporting Document(s ) ID Date Data Source [id number] 02/10/2020 01:35:[address] [facility] 1965 [phone] Microbiology - Blood CulturesPROCEDURE: [...] Supporting Document(s ) ID Date Data Source [id number] 02/05/2020 03:45:[address] [facility] Name Value Range Interpretation Code Description Data Renae rce(s) Supporting Document(s ) Rapid Negative NO [facility] COVID-19 - [facility] ID NOW COVID-19 assay is a rapid molecul ar in vitro diagnostic test utilizing an isothermal nucleic acid amplification te chnology intended for the qualitative detection of nucleic acid from the SARS- CoV-2 viral RNA.For more information please see the link belowhttps://www.fda.gov/nd martinez/269381/download Rapid COVID-19 Interp UN [facility] First Test? NO [facility] Employed in Healthcare? NO [facility] Symptomatic as defined by [facility]? NO [facility] Hospitalized? NO [facility] ICU? NO [facility] Resides in congregate care setting? NO [facility] ? NO [facility] Occupation ([facility] resident) NA [facility] Employer Name ([facility] resident) NA [facility] Employer Address ([facility] resident) [employer] Employer City ([facility] resident) NA [facility] Employer State ([facility] resident) NA [facility] Employer Zip Code ([facility] resident) [employer] Employer Phone ([facility] resident) [employer] ID Date Data Source [id number] 02/05/2020 03:36:[address] [facility] Name Value Range Interpretation Code Description Data Renae rce(s) Supporting Document(s ) Lipase Lvl 21 IU/L 22-51 LO [facility] ID Date Data Source [id number] 02/05/2020 03:36:[address] [facility] Name Value Range Interpretation Description Data Sup porting Code Source(s) Document(s ) Glucose Lvl 112 65-99 [place] mg/dL [facility] BUN 46.7 6.0-20.0 [place] mg/dL [facility] Creatinine 6.43 0.40-1.0 [place] mg/dL 0 [facility] BUN/Creat 7.3 7.0-29.0 [place] Ratio ratio [facility] Sodium Lvl 137 136-145 [place] mmol/L [facility] Potassium Lvl 5.0 3.5-5.1 [place] mmol/L [facility] Chloride 97 98-107 [place] mmol/L [facility] CO2 26 23-29 [place] mmol/L [facility] AGAP 15 5-15 [facility] Calcium Lvl 8.3 8.6-10.0 [place] mg/dL [facility] Total Protein 5.8 6.0-8.3 [place] gm/dL [facility] Albumin Lvl 2.7 3.5-5.0 [place] gm/dL [facility] Glob 3.1 2.0-4.5 [place] gm/dL [facility] A/G Ratio 0.9 1.0-2.2 [place] ratio [facility] Bili Total 1.2 0.3-1.2 [place] mg/dL [facility] Alk Phos 44 IU/L 38-126 NO [facility] AST 18 IU/L 15-41 NO [facility] ALT 11 IU/L 7-40 NO [facility] ID Date Data Source [id number] 02/05/2020 03:35:00 PM EDT [facility] Name Value Range Interpretation Description Data Sup porting Code Source(s) Document(s ) Lactic Acid 1.1 mmol/L <=2.0 NO [facility] ID Date Data Source [id number] 02/05/2020 03:29:00 PM EDT [facility] Added by Discern Rule [id number]_CMP Name Value Range Interpretation Code Description Data Renae rce(s) Supporting Document(s ) eGFR-AA 8 >=[facility] mL/min/1.[address] The MDRD 4-Variable IDMS traceable Equat [...] 60-89 Mild decrease*G3a 45-59 Mild to moderate kdmqklvbN7x 30-44 Moderate to severe decreaseG4 15-29 Severe decreaseG5 14 or less Kidney failure eGFR-LORIE 7 mL/min/1.73m2 >=60 [facility] The MDRD 4-Variable IDMS traceable Equat ion [...] 60-89 Mild decrease*G3a 45-59 Mild to moderate wkydwuygH8x 30-44 Moderate to severe decreaseG4 15-29 Severe decreaseG5 14 or less Kidney failure ID Date Data Source [id number] 02/05/2020 03:29:[address] [facility] Name Value Range Interpretation Code Description Data Supporting Source(s) Document(s ) Troponin- 0.14 ng/mL <=0.05 [facility] ID Date Data Source [id number] 02/05/2020 03:13:[address] [facility] Name Value Range Interpretation Description Data Sup porting Code Source(s) Document(s ) Neut Auto 72.9 % 50.0-80.0 [facility] Lymph Auto 23.1 % 14.0-44.0 NO [facility] [place] Auto 2.3 % 0.0-12.0 NO [facility] Eos Auto 0.9 % 0.0-7.0 NO [facility] Baso Auto 0.8 % 0.0-3.0 NO [facility] Neut 5.6 2.0-8.4 NO [place] Absolute x10(3)/[facility] Lymph 1.8 0.6-4.8 [place] Absolute x10(3)/[facility] [place] 0.2 0.0-1.1 NO [place] Absolute x10(3)/[facility] Eos Absolute 0.1 0.0-0.5 [place] x10(3)/[facility] Baso 0.1 0.0-0.3 NO [place] Absolute x10(3)/[facility] ID Date Data Source [id number] 02/05/2020 03:13:[address] [facility] Name Value Range Interpretation Description Data Sup porting Code Source(s) Document(s ) WBC 7.7 4.0-10.5 [place] x10(3)/[facility] RBC 2.79 3.80-5.20 [place] x10(6)/[facility] Hgb 9.8 gm/dL 11.4-15.1 [facility] Hct 28.9 % 36.0-46.0 [facility] MCV 104 fL 80-98 [facility] MCH 35.2 pg 26.0-34.0 [facility] MCHC 34.0 32.0-36.0 NO [facility] gm/dL [facility] RDW 15.1 % 11.0-15.0 [facility] Platelet 90 150-400 [facility] x[facility] MPV 8.2 fL 8.5-13.0 [facility] ID Date Data Source [id number] 02/05/2020 02:24:[address] [facility] Name Value Range Interpretation Code Description Data Renae rce(s) Supporting Document(s ) EKCatholic HealthVB IIs9rAhHKPdUvh7V [facility] KNCA iRL3wxbl1MP0LPV [facility] 5ndGg gODUzNTMvRmlsd DOpF3RoCQI oHMBmf7Ek Wb0hpEJoYE 3TjUkatK8 vdrtuHXa/f 3BMzrCH5c Yksch8nJ3P VZ1J8XiNb W1oKUuCj8C cZlCG6C46 cbKfXkl9iC oU++JdY4t IgVJ6GPJli vNff/nT3/ 3V6dtA9+t3 /+GX3/rudi //1l/L1n3/ 8j86xiw6s WV+/+48iUb 6e97/yVdb bVE1br3/f/ fGXf/Jv/u bvv/7iz7/G aGM9/+Pv/ vMVa8+nXLl n/6q4t7Ik +ro7f0o5T+ 7FpAy9Pu4 L6T/9t7/9V 3/xr//FP/ vL3/xPX3/+ m3/9F3/1G xaeZXxKDeF /+df/8s++ /uevv/7Tv/ crI5iUWe+ sio23S13zX mP2rzG//q //9t9/rQVX /J///o9/8 9qvb0qx6bX qy/xas27p n//+f//7JL UjI4mLkzu /+9/8NrUb4 jdvmm9xh/ 13X7/W0Cvw z/72b//u/ /gvf//1P3z etC893v+1 iur7u7/746 +20jf79a+ i4JkLRtZxn 9Od42006I /6/X//+69/ 8zf/23/5N W1X9He//9v /9GvarsRf /i9S/k67R0 V++y9+eT6 jPLV//Z+/m OZ+PrN+/f GXNdbnbMd/ +OWvpNrPG vV0+be+BXj +fzzBfW6W 83kntzzfZe QN6/MmMD+ nsYBiFnj// 2EBxSxQPj WpUEwCz/70 SgLALDA+g 9KMt5N1u3l Ciq9AO+dz SIVhFnj/2S dvhNA9mi9 ONAvX8uVSX ygmgb0/g1 FTu4T7lE7V spyebx6cT ZzWI4TXSAb mgbU+lVUA m0SNtBEztr IZrAKYBOb VnOHfvwN0M V1Ht9eyAu ALPJ/aWEAx CbyfAjdAI Qj5l9ymzah FymexAmAS 6PuzuQvALD A/M8oTBpZ 2qTwfgVngX BrAGkEu8S vfZUMY5Xdd ZwHFLFByL 6KCiN20gvf 4OZtP2Zdg FmifxlMemA PmAH3vGYv C7z+L5yMwC /TPZhXALF Vd2AWGwDMo kZ8aBhTcY D+BOvGqX2B PYBXALPAu kCjw4CmPd1 KCKX4TWMr al7JOsA/K5 QKpeJ/UA8 MsMD+jsYBi FmifVEHLP SgRrl85INF JrC2m+QoA o3SwTn7BEM aB+mmsApg Aid7VnhXvK 8zPZBXALN A+t4YETtWh 9b8VLQHDi S33AavP36Z YBNDB6NzX YEDFE13K3j ALzNwLYBb t8k8FRCnE2 ilJhWISaP uLiH5Jm8Qn oVkFMAvUz +KFNZxW58A zWQUwC/Dj NT/bPyWVKm iG2zb0Y1I FfCe8grdQu vHIrQdmgf lGjSEFEH4t fbjoWZ/CE i8NYWzmMIA LvFsPnoXA V6Cc/Zmkwj ALjM+uLKC BTf4rq3OKo Szw+hiDBR VRoP6nxdgY WeDdemwWU GzG5ACOQTH MfYhU6sPt CwzZNJOAYh ZouRfALKB 7zaRAURDb4 V4As0D/zM 4Cilngtcus MshW8jRb9 Gk9eEOzS2e DEJv2xncF BXLx8+lJgW XN2KzkfNY gFnitMpcL5 OLyOTwfgU bkfM9YRvFe dKa5qFKL7 6ezAmAWeHI PgEmgvhsP nvDALNBzH4 BZoIoDSAK WOkB9bEbeP Efren+ek8G4 NEzAx1fJPk vEETeHce/ CKASeBdbA6 rAGaBIbED ElDMAu/eg1 BOH4ZX0jZ MWWGgl8Udy kAqbqkDgF X8dI4YfHQo /Obe6BvMX e7dldgJHVy /nSoHvMXr BnI5OFSWco +iqgGpuCU iE8DUMpTDs ZWy4mjgfE 4DBRRi45im QCquybcGv MUjxwfGt/D CfXED0A52 IP+YOoab3b qVMB9DL7/ iAt/Travis+iA t+ROg6sZt 8gJPAtIvAt ILByPGDlc VSXWWfqc7G qdgtG5jZ7 y562h2PATD W3QvcEKiu 1a9kdKmk6t I76wUSKGO UYhyj+1rGm 28RbrJCKj 9dAf4XIT2b 0tbiGkFH0 QcsVrOt8ih aN9M8iLeC wsAfiTXe3S MYLd2PzDR o+4vouXdN1 eKqbEcWAV PyuEVQqiAr VybmlCm/x z4c62bbbyq WQagWt1GK BVDjFxbylC qlYHbxbrP WS68vdHdKQ 6lzeUoVUv FKrAW/puentes+Q umsKAVNxS uoKmuQcW4I UauNZ2cQ+ uIew2Wwih3 DQzzAIaHS ABxSywJEpC AopJoGiE4 nlBp8VVMW3 JKGYBjZKQ gGIWOBItIg PRUWH9TlJ ExVly646Pc 3LFb5oLOW m0J/cCmAWa LU6YQYPYe MkWZBN0o9p xPoMEv5oc fmgeK2UVFQ KAYhaQwB+ CY1Ajubwvm RyYBTTySA KKWWBI/JUE JZIOtk0FN WLOkRU9XFg FTs9fWhBz sHIvgNlePf InGSzFLFB rH8IQSFjbO AHFLKCRbB YTGDZdO9Y1 PgKzgEbTS UAxCyzZOpC HMhTQV30S itkwVykhy6 yYBXQDQQK OUXYN4ipSP HE1qjVYa+ 8sDYi88FnZ LKAbKBJQz LIx3mIeJJH 2L8RiIdh0 dT9TAqWbg2 6FKWx0XOg 74l8VYLz40 YDIcDXI2B 0vCShmgSNb fhJQTAJNN 95XAJgFhrg cJKCYBXTj TwKKSaA/uR fALKCOBwk oZoGZewHMA ti7rDVz9g hE2BdiKrSU RRJQzALqv JGAYhKYjzi xVwCYBdSB JAHFLDDFkS YBxSygTiw WFLlAo0obY COBWUAdaR JQzALvFoTL IlYjMO373 jUrZoGW+wD MAhJNoHKB UIhlW4OW7K QJyFwBYBb oqQcKuXhJS IjKFdPe/N KCeP8qK5KI j6DJYDqeU D5BsWTdTwv SGiMBxex8 aFiKvA/FLN AlPEcCill UA4CtxGtM8 cA5NnsFNl 4jAcUsMHIv aOuAS1Jck UbJUiz5BVp BLsFWElDM CgolWUJD2L j7CjFrV11 tD5jgfQVQc 8CQcDMJKG YBDfiSgGIS aS4h4yGDP ldGW8UiUdA lIXcSUMze 5sO+5pOKam 34QEucuQ3 OOUEEYi2HC MWryHHFLQ njqT5jH6kI B0ZGCPUBo gMYJoGdIwG GWSDHAgyz NI0KQXuF/V s32YzWUUp vEYHzPSRwv dXEic2TOq yPCnwPCzzf 6sGA02WI6 z7p8JcLBOm fYgPPt+CA 5JNwLwyzQI 4PGGaBHCE nlMM5RbSKK GqOEhhmgR QnAOTiHCkw TAItxwoMs 3HZSiJvxN9 XGGaBHDEw QKI6yExMeD hHDQyzQI4 bGCaBkSMHh mexdw7Sn2 COHhhmgRw/ MEwCMwcQD LNADiAYZoE cQDBMAisH FGlgZI7zNS aBHEAwzAI 5gGCYBHYOI BhmgRxAMM wCOYBgmARO DiAYZoEcQ DDMAjmAYJg EQiNE3XdP JwcQDLNADi AYZoEUQAC d8pKGDHYPA AcQDLNADi AYZoEcQDBM AjUHEAyzQ D8fXIgLZXT wTAItBxAM d3KXIUlbiY xAMMwCOYB lzBQ4LmYBE oEcQDDMAi y57uZBLHwU DJPAyAEEw yyQAwiGWSA HEAyTwMwB BMMskAMIhl qmUgPSn5X JvQAmgZUCC IBcnAMIhl suLkTRx9HI WJQFJo2RE MMskAMIhlk jPiPSh1CO AQTDLJADCI ZZIAcQDF+ B+eQAgmEWy AEEwyyQAw iGWSAHEAyT QMkBBMMsk AMIhlkgBxA Ux0DKMDEH LJADCIZZIA cQDLNADiA YJoGWAwiGW SAHEAyzQA ogAFJxzwEE wyyQAwiGW AGFJZU9OBl QDJPAyAEE wyyQAgiAXJ wDCIZJYOY AgmEWyAEEw yyQAwiGWS AHEAyTwMoB BMMskAMIh gbwJfLWb0A OAQTDLJAD CIZZIAcQDL NADiAYJoG TAwiGWSAHE ImkRP8yAE 1G60jCOFWx kAMIhlkgB mJWg7VCLIs mgZICCIBc nAMIhlkgBx DCt4DhZDN ALsoBBMMsk AMIhlkgBR AAqbjlAIJh FsgBBMMss JYBrKQO4SR CYRLoOYBg mAVyAMEwC+ QAgmESGDm AYJgFcgDhH yRLvEZvP+ +2/6NapsT1 Se+q8vo7E lyQ4kobLui /9zdRfroF 3aDShO5hF/ x49+DHzP8 fs+5/zHj/K wl2w3zrMh Otf8xy/jHD +Mfs3h/za 3/Kcf05v/T X3G9p5vn/ gJy7Qiifg3 y+t6Hyepq l+0furZ1D2 snamzxh9B /37KYfMox+ ePP9FgYwH 813+SHr5Of Mjx+zLn7M ePgx3+DH0/ 4fT9p/OuX ++YT5x/PdH 09XfzzZ/P RW2jhToL/8 LS9z40hqL 5J+YUL61DQ lx/OLH88Q fozf/xg7/z Fu/WPU+Ie Y7Y/x0h9jl T/GCX+I0f 0YIfsxOvVj ZOjHqMyPE ZEfIxI/RgN +9MR/9IJ/ 9EF/8AB/9L 5+9Hx+9Dp +2PH/uOf+c cf7/2O3qZ WrI5c9n7f1 b6gEQwn8u 6yrr9vxF0a KD5/0zx/U B8I7d7s557 ukq+q1vh7 4O+p/+jtlT Cjald/9x7 jwbtnP7/Jf 4Jr1T4cgl 33aBp0PyrY FheBy8RhZ ld9TI2TG0N 87wHxYKp7 7MPi4jpdA3 UJdQCtuq+ ligMB7veAX 82NWegSd4 xMsTsz0yye Lr410iIq4 9WjFSGL50G 6N5CmjnT6 7ufTCXhPUQ 0SCkpFo1c k3n16K63Zl 0g/a4OtWq U3f6CAFk0p u4uNxKjKy bxRg9LtCFZ 9VSc6Qmfh XhoEuB6HN1 soR7F6Xcl GipD1PM8Gx PsJ6NLKie gtNixWaEkM Z99lJAnPW ZGddFOqFix dKbP+FDUj 3pQAdTmHc8 tBLBbSA7M 2cQeN97p7p ixW4UC4fN smIOrUXm71 5lJ6Ab06B G6qf08WevH Pb524GTcx iM6ZrcW7mT 9Z+Z+UL20 3Xb62R1Bhe edUcK+TOd m6SGd1TSuZ j1RbEZGdG UatA2xHN16 PyVQ/q3fj WNs3MAoc5K pb9NowQEI 6j3PWn0zT9 uxTb45HTT MO1HX7I0AG 7e7Fx1Cq3 UnCvMNuZ0w i0VT2SwAi UPOHz9m8zl tWtrVCvs7 /wVCrdesxI SFlRwZE7z jEXfMkXSmi HEEQre7CW y/WAWJa1wI 5UfuEppPa 6BjXszC0/d 0eX/ZhORw YXUzuD2EWA 12HY48FIk UI5iyTILjc gQQiz1hSr J9toLat5VV cSXPOO+Qs PoaIH/lETf EOCrSbhPh OcNPteuEaC +8OHOBp8H Fy5xDhM13g ZckPpbTY9 zaJCsd/+cl 8oZ/kBG2J GTmwdp6Mak +umtqn1xq DCcRJcLcG9 qAcWbLJJJ bFCaeQEwcg Rn6WyrCvI o6pp9/NfOD E38xne1fH 6iF1eCV6Wb HxK85UK75 jkyNJUbvAb bY2VAM+6s 3NRk0gQreH apihz0QcV iHf9YQE2Jo HE3/N0Lfb kvxCy4hA1r H/hOXfOv/ uPQqvxCyt9 Ly/s9a4zz XIVfCCWmtU P7fTg4Axf oqIj2g546B o72/SKN8w h6ix3lB9Be G25cjnqe9 jrM58EQZ45 1gQrN/h8e kJmVtH+42b VoanBjDg4 OLLS/sBRsd ON6zHr8iO Asc71x/Wo2 t6b9LjKdL /rmBMSO2l+ tcGb2aLCv x4eEFQldL0 ajdHEtmUY 3OWaRrklTG b13Qo/525 0OGwhK9Ts2 hfUbumcCW eW2lb1M17K qLZrvV/YF zBM1LFzxpt acws7xLXF PdzeDrPqst 3NKka/u1k tVkrvrbuWA rRoM/fCc6 ddH/AOvNaB hBi84uS7R uhck7A0nAF nE6oSsw6n 6qeABPckh5 yf2ZWf4dL ryEkP0SDja mvJmm/UQD vq9+k7ET/z RiwkCHmD1 6dSgxccKXt tnsL4Geox jh6zn3a27Z HlUbR8Ipn tTKtT8Yn5Q uJ5tU81yY 0WqZyJB8ds 9qoOdfbAo NqCIYfCtKa 9sNGaJrcH JlV8XI+Xrn G3BC/ctBS RPcq8svHW0 gvb/bIlSE 5A12TjfJ7t Gt2h838Za 217dPxtBy1 ot1YxZW8K hFdLcNMgj+ qKHBZuZP3 Wpypv2qXla BOe0BSn9i T2jXwCJzB7 ZTJTf91eK 498ntX7X06 jc1XrqJSw K/KaNzeZB7 ZKUfSx30X Ky8QLO/fOQ uP41OBcHI 7UfaDN6CfH uQRec9fiH vg27gUZX3L xL/yFZlLR qXUoZF9v1y nakxtDrH7 kBB5rwgKjA rE68C+s2L Da9v2Cl7cq jATnSc/uR c0JImGURkL Y4DM76TKn 0vgvK6gnU8 SymuVqXPg kcdf1w2RJQ +mWrR5rnD UW40vfY5+w 2nYVztSt2 GpHi9dY4cU nh2KkAegU i/W4nIeB3r Ve+4FRlfk kN7c0NwunI Y7qC9u+fX gufMnWL3gp 9uWF+7bnR WcQLNDjNRU 6vB9kATIv S4hlJ0NPfS SJDpYJIUd RfJWEV7Jzo b8uHEkD9E lhrVSNJWxf SF/GiyZFo Q81Oc0ZzYv HjI7EfZvf g2r5emBRZZ 9L+2Q0e4K Vx0pnI5VCL 4zdhZXeVI eyv4OdrUy7 acvywnWnw 9uEQ9k1Ney m9cNdjsvm 0Wcg0NRySp e3fMT0hvd ymy6WE6zlh IQcf2toZL TJy3vnFrcL BVy0wJEHg 95IBiTpWUh L9/e8PhYF dNhqgmrsfG 0y9Zxj0bD /TPy7iKh3C z1kZx7Jv+ zfQfwkm5+l UE/7xT8qN K02LOo56d/ BTg3fIOug PqBDqgRm10 DU+es5rgV KL0ENmRGPA oA49oPIGM mWHn1Wd4Qj qBhx9wtVw S3vUd5tmKE FLcsoGvBR hfXoDoxsFf chg2gcaY/ hemDnbICd8 pBjrUX9qD rEU9zhN8fK 8qPIjh0vL hjJJZveBtB rIjprTK7s uGV3D4bhPQ YwWCMam9e FXlq6G9EcM JftONFhg4 9w1EbL0zDz YErtLUkP5 b7Xwm8lQ0E GAkOrzHXC U4MNA8cee5 /y76K+Wub 4OZ1pea8GC mnbPA0PqA QOSPv4A8jn D/ZgY/qiQ YuEzKCYDcM aEA1vcNAH 0M1Fx4ytEO 3YUds+vdD hhH6gAa/[place] ugxw8ox++ /GAG+gM6ln 26MyU1Syh UQeGwPw1Mg Pre39jDdN 8eEpsWHjXN GGogvbTsJ qSzv+nrQ2S I6ECqSd2A bHoalyYEX9 rfw7myjJH /a4FYX+w1b 7GPNSdB2/ 19O6P9S4Co NbksSEd72 fXGxLFbaX/ 4W0pumVUP DsncNe2cod JUNDp349G ML+RtPuhYv 7Ge93pJah PQjBSp4igP jLeFEbqZC tp1zUu+b+R Ra8X0e5ZH QuGuvoT2nC Bw0yTdI1I Pc3kHrvLun tT/pCtWkT bJFyaFcUKq /l5qFjYNk 6wnLugrItt dLslNDorf rgv5ABUWiI wqhJOSidC jCNL4pfun1 +Zi/qk5Fp 8JdMjOT5I0 kEMuE5TZw zZQoYYF4kW PTi8Rq31E SfPgD0iuDe 7NdkANih6 jMirvqXS5E jLHcJeaGZ zseeHTwuC6 an3hqNnvh JCX66Utzvi U3p6vomju bx1ofeqs2h tg69k0C6N h5K0rKZxPT 5C3ujD/Ok d3WG1cesPb 4Xbtocn+c qFVrHfpW+s BPj3NRU2e oNV2E6sxA8 DS/c1GDhb pJmWY3nky6 7Zp5pqGNl 0ODh6s48n5 0P/0WbXDu 8wG135GCYp yuplSvBTh /7G2z9Xc+F XtID59eVs OQvboItGVC 5+kQF4VPS AAY4z8A7f5 i3W2R+KJr J2O17BUbbd nMPXz18P4 6mngvTFv0z hNkPPePDg zKSH/rCRmu vFOt4GXvT t63wmVyq0B Is1/9og/L L8wHbnNM/4 aDlXlgEyV jXb4yv0Jz3 0YIri0X9t Bdgfpf7N9m 1l1m6mFQD +bPcUUTNy0 0sH0nY4bq 6TfBmpUiy1 M7eqoqnef Ypulq2hsek 3jZTakNzz Ubsnt65aTT K1GxqZVc+ GqVEvHDxpD jJoJbncUc yXLaIYzn2E +9p51uuHh 4FEHBKgAJj Zw0WXO+HJ mQkyl7kxsq t+oJnzXjN PE3fWB0CRi KFtoSCGy3 lwtx2boJq+ dOCF+egyN XFa5iN2zG5 P3I02qTjb ewCZxr2t+6 iUn8vb7+R 0H9t264SUK oL9iivFQG ++V93gjd4w zL4Nt1lh0 q5IDJIATbX z2hdFoSf6 EUJXrSgCLY TT8MT+uyD RDinoj8U5y o6XyaTRUG AsEwwbi91F 7prxx8Eqy muFJYTnPKK nkhfsre/3 IuNcjPEVu6 gPQlts5iU 7TudQ2La8S 1FKdHP0Nv zK99F7PTcC sGHou/lOX 4KWqbhSoek gjsdvQgOc wmt7wGF3J8 tzKr4cqNl isCcF2J9Xx /6iiUyETa nFqtBedwoB 960UxNsfi 2gZTPZvrQU G6hl5PVjb Dahtf3IU/E 5sX8MOW2N ApWCvKYrj8 Sm2/vq7uc 3MHjRY3coI J8gEd46Zy XUC+ztwkRY MlQLahvgI Vp4ckdc3ai 9di19juLR NdZK3TByYB w0qG5qv2b 5J9hhfBLgT DGuRKITJk 1BqlMslKV/ +SVl1N6bI x5uWaruFNp RBbfU+uEO tI0m6T8i2R RbGtYlD19 iKAl4Quuu4 0D4vVRw4y muPMt4jyEs ehteyXwLZ vstuA1+Teu CmwA51fwV K7Ub2U+3uu 2esY3D/lR +fH/ThgyoW e1GsKtahk HOUSING GRANT ANALYST+mAPzKub 33JMnWlHH tRtHRKhloN ZCayZJXlU 99L5QQGgKS vn25PG2ZS NF0q5BZxDb GbdqG3Mb6 CL2/DAjadK FC1L6rxoO Y7Gb9Fy33N 5l4tHT+q2flvxcSkE xCpBKBt7l jh10rsYKdV lmk0goaub S3twXcJkdw Qupt0g3eo VfkRsWaXpE kKRO2Okqh MWVqd7/Wyr u56GJxyHi meHq14oy/B vLyPsdY20 B5AnszMAhq eT38/HADb sCc0XY8N+c tzJFrOy8z icdA9FlKEY uFeZFLATX jwcawzuRPC 968INeZDn lM9HLeLf/c 620C6lAgN +LUkl1t0/X 3Fe9JjwOk hP2fnkabIp 7dkFtftxt ymzSWPGWmr kY9qfUzck dMYfXHDwVK Il9ehX180 5atvv67ncO jjfzJhrye bMjrcUMOQ9 1qw2oz3th Sfsnmh8h3R j4DOeoI8e bEpbsZTa2A Gw43isAy9 RfdivvCmJW PsEnOr6Yy asfWttA67y X76Jclpbu e+TjdPs023 Eq4yagDZf Fcy66i+nhB adVNOeZSa 75xsPLmkez s7KyHBviS PWzNXeOobP VtiGB4x8p mfMBwpc1mQ 1ww++GC+T KV997LQc72 WeaCvg5mP 8zzZUB6O8u r5LJ1z3C1 hSg4zXz99b voAh2LY+l y9HZ+2BFo0 8WGx75hB7 xw0c17zKbu JGDBkZBrI GhuNZgas/y 35RMgDt5+ /YtVuxzm4k zp51qqztx 2ZVYciVjwY lpkYgXuK8 snz/zFa+T6 cnqdS04Md U+6QNIsISu eM90kqtwB q/PqTFsUb6 wKlI4EwSy 7KpLvG5gJx ow4cZjuP3 5u+fOsvVtq vhmks04nb zbLzYrai/v M1AZMKgfA CaHi9wTkhk XS4+YmY2g kUzNVZxlal pckuHFjLE crumZJWoQ5 Lv08q6R1r ajPErViaCN LE8o0e2mn LL/SIDDIQUI+mWrR WS0vDqajT vc4CZkignr ga+uy4bCk vZsgwu/eWc ufa1rY7K+ vBrP/b48Hs /6sQi7mS7 KX6jK37W0B j8XBEK4Xt oq82a0tItW JD5clXLNN +PzlRoK1VI e6baL50yg x22wecQVKz JnUcSV/TN wxcUq60rgX SuCw/dkCp 9+/EzFva+O DncaR6EIj PgQDulcg5H s13h9z793 P4s7bRX3kx xS+eKoTlq YSPC0o+raw s91eNzPMn dhjk2y8KdG p5zE++d+p 2b8zeTnx6C CbZrSFHfz lZd6xsc32o egitdhxDc UeP6GKyafQ sKghfdVRB 5BnSunx5ut zhK8CuMui JEWE65tZUe 7PlxUxflh 675+O8CMK6 V7QpqHwB7 xm9qvvDtDF c3/XlLprb RRuaXv+yBz C+Clce+ez 61l/ZDobqB 3K+YGaN7R vXchvnykPy ipz7vdcRI Of3G6LvUVV DfGdtNpcB 8VUl/MYG1T deGFWJMv6 oBENiMwW7B qu8BL0b38 NEtH6g9AlJ bbC26jS6i J1iEW1QNsn kfyAbzqze HQw0gpAGMv CGTp4pYFw irjr2gJ7Dy wOoXW8cGC cSSMP3qqMi daivj+KUi O9cqz4vzO4 m+x6zuWbD 0o2kNjsQhW M+U7o2Iub ihVzORIBYT ZWqGmL/Ii QwxgoOXm/n 4/EI9yL56 YORvahZXhj k/kSjGuJ6 Rh2n6wVwl8 UQ5nW67bQ 66AfgCXGla c4Jx8muc8 V1K9KTK00r +fHrb29rE iFPd47NPNQ wQN66bgCd XE+ljMbSaP pB1imqa6m dxlO7pxwJa ctT8f4QW2 18NF0xKq2a c/TCM0MPa GZefxRiJZI xretOaSna sd6vjKBjjo ooi67YFlo Vn0Sc/kVMW OxGl2EPsg THVk62hM0p c4h7YPDKh KowJVH7ax0 /IfpuFceM FIo664kb40 GyhYfe8PS /pWNar0FcZ WVaovO1wq 9b6HEguN6G D8hvcvynf /j5OyvvQI9 r1GY83IdA 4DWOr/vgVY 1vyxVx69F l+ydjUHb// G+WHVomFv LOoflnimW3 gliWe+YZt KCTzWz4REr Ff32OXqW1 zeV9DsQXSi PtPWKfn7j 3iVjZwPxln qBgM3v1nN Qoi026D9eF 5Y3Hg713u wDEb7sBBKj f0SkiLi/F YVPfTDVteW ef7T5oXW1 VdkHZg01wx mt+Wcmg23 SGPa/fLUph Cp7iXc4Eq crQB54ZeA4 QSvEaq/vA aG5Ny4bMm8 vrKxsf3f5 DelNsPHTHe yKga4z2US cIuZKoxboU s2LgNcj1T F9b7M3WgC1 LrPvh7zPU sZmvBxBJOG 1s4ieIdGK eJrXywaj46 HEn4tSV8c oFJBp064E/ 9m72lkpdw 5YJkLpwm4v qZTyqv294 26uv4/WTr/ tmCuZOe9G HrHlLYGK/U /MK12ZQcv 2e1onWTX5P /fqAduHPb 9+P3qqo/b1 51rdgkWo4 8eHnYxQ/Qm 8HK88Z+Hu jbT28WA09T s7qU5PBkE UcjedUOp24 xpL7mUw/V wFgu3g0c7S 13gcmn0ai sNg96qB/6m fe1pO7Ly/ dA1xTtK/HN O8/dEjmI/ FZYKRlX/mp 5X4Mqvfap mdkVFVRm6V d3V93w+KR 3PZwmJIrbz fSI4AJlap 0ZbtStucON vmJUs8G6/ RjWyt842gU 7ioxeZh20 Z93vJ2aKA8 U75ccs9Pe ZSIZ6E3zMr 5e7i9a0Mz J3FA47AD5e vgeTFY0fu HkccVsOHJU 3Dk/t/RkZ fb5zYrD7ZT HO7do+ft3 ScuRnuQJ3r xXhIFt6rJ 5W883v2A1s IYNdU30oJ 1t8+T2ETl0 /t3eOXu1+ B7nrzVIQVQ jcyiISdpA A65rgQ6urV +w9FThDAl fDdIpfoBpe I0cDU38rz 1PTBWjBrWX ceTNyql/X 0orOmzlkO3 DlWEJcUCJ ZQpzTKVk+X ERI0zYAHw tMbntzZTYy pI81Neans aL/1Q/cVVX cTgA9EDcq kl8p05+3B3 nLcQ36cWs xgYbexwUt7 AOiU5eWWG A5VDcai7ex tjCZqUiTv xjWzZJQIvu iFgo8bKTb G8IqXCP1CR vwiOXP2wL O558MOxKfR aPo90iEBo tDNGxhnD3R n9JmqgK4E RlCfCV5nqC fAuiF9fUU VXUZmS+oqw Tq4R+oqwQ eI6eaR+E2J dxu3aOkvA /VbK+rSJO9 BCopsJJX3 Uz21WmjNtZ CvOpWXFyP z92PWMMQ8F ST6NbC9dS 4E/xVDKHoy 8mruGhXhd 2qPVOhHhUq edVVosldt /kNSioOlEF eJXAatdVc 6SO8vEesYQ z7IGerScL mfJ6tFegjL NGBWZ5HUm KD2YG4iF9X vCrmGsir4 hoPcCXk0WJ mRlDRF9JD GxxcDMWK9S zexlrzt/T nCb+ctqrOF HlSm7HIui uh5nisOaHB 4hYOJRQ9N psjsGlrNHu q9a7ak2AF KJ9I4UlWrg ZxQOnGXOC jzi9oW32Jx 4ajaYNl0M Wvdp7EWPdP KT5aPbYB7 eThqTcxy6u o6tAOGfXO 7KKhZ58T3r oCP52SHpK rhdx3opDym cVwVprKmq 5CFZE9QUGB b0MjIpBSP ezrfhWgrGK 4ZhLmmjRR q0GHXJI8LJ /FWIt1S1Q lt0W0dqUsj xqUVQwLN1 nzs+JDBmUV p6y85NK9n YIq6N7usWt 4KiCVQ6OI egrSNkBZFa sUKKsYrnY XEFBWxTrbj FvcVlJQVs VyqJRVjHon tZqPxXBV0 pAgbyOm6kj FvSr6ifJD 4nMGuwa6Yn Frcv7csRY W5rW514WUn dXU8RvCyy 1FXJfH2jLd IxWecwuX2 zgULtfisNc M4WKyK2Uk dqCrCnMOui qBmuMLuiq Uow8qRgsq3 qTbtf7bHz 6HEzLp7aer iZMDYuerE gRWsgNLeqF d0qaZmnLd EjTXl/NVCV QydPBVMVQ 4K0luDtOcg WVWoV6KNe lFCMBXVZe5 reCrEgjWn vj86WLrEe+ V/BYseIZ0 nu5lSyiJmS lwwLDeG9b AYZXA8+WEV JM0NCKFGm KHncr9dcEM y6G2mQpeg UDNgAFjlUB 4G6BkZpm9 bKNQH3cBxV mVZtmDmnR FAWNVtFjTq S9NODhCbG oiYKySvjsr wWz53GiRD iCRsNFq0CJ NpBIIziFN pKrL/FowVt 3XIWlUjCa fgPwTEU7xA geUVTIHjg 6/QoVH6At0 SLmmkPF1I WdR6zB7TM4 ik7iuOHpz SSyqzzWwVl 04YemMvVF ZqxipmivbT 2ZpnI0Lfe Ys0wu45UIe Y4kYaMkXs 8Qd4n6ItGS MTc/WF7Bh QZ4SF2e9mq bvTrctoK2 FEhy0HQhfJ M0YWDHyDT 7iF7ZHcANX gk3q8MRoL hnO5cJOeKZ QVkUPQFsV wqCtYuFOb1 C6vrroegv aNMrgrWJYF zQlNOB6wt DyyaE52uyK NR7zuh5tx 6IKo+qK6qf daQ/eqvgo jSiP5b73KR zYU0IIRv1 nkMQqvK1Km KtikQVvFc KV7scbHzGo VtVitLr+e v3qXtHZiYy DgrL76VB7 J4AtzVJ4ZJ TwV9EbUYE PscBbxbDua bZKQ7WkRw w4TnhBa9AE DPBWXTih5 gL3VfLUiqe xiJqE3xA4 iuFGVbrRB2 /XUwNbC9D 7Pt5j04+LV oW33R2JDU 863Ci4bzZr 3rCtLrxhW a6086wmjgj yUrOtXrrr ztZCd8mwqG eUcqzP5NH y5B6fB76nM 1WBU1DcsN GTeoUPzQkw R9BOSrOEK GPnS7ZbWNd F+QL2Pkmi zFUxpmCuig oE1trgzVW wbb0XpySHH ahRBUbvlu 60OMR08bWZ L2MuT3nx1 1RhW2/pSI/ OcRcOkFfF hRI47uF1D6 7VyKwqrcd gr+LSjCaZK hUPCQn6XF K1VkmUumdr 7w9uXMqqR BoYt55F5BR lGPRVsbYp mfYcooR1Hp n7qg09fSR axpezVwWab esaPw29Up wdyf2xLYaY PDumAnlVL TwZRyKrU6f z9iyRd3N7 koEolqUW7Y W+SGY1Sch rCV3NJSijL X7Pat0lpT zbbdm0Nj9R hb8pcLoGv thpIrEhNs7 NN1dx9ihD hfYkid0TVK Ao63Fc9KL 5sKv+6g7sq k8dxs0Ypf 39rrB9Aa1p NC0il2W9W XTzVc9XnVF Dqvp8dLsN +qqYiqCviu 1B3MBszcI +KjoE+iouX fWuUKCvik JQqpkh3HDB bL4krI8Bq SpGEQxWAqe DidGI00em eJBYXaiJSO EiLSWxYtg p3dmMICcuB dHqI0SEML q9A+yuB2o1 Rbqj2cCPE Q66x1paxUm sXrpzVUnR pYRh5IwkNj SjwTN6AeI W474RUe0bd PAWr8wYXW G4I2jelLgJ RbOL2gRim rW6UdelvY7 VpetTqHDB m/QXtFyPy4 1N5GdKqe1 gQqDiOl2gm M7j840X6m /ytlMKF2ta fAkDmdWdr ccsM19OUaf oqoDy5Jn9 rBgObvFxtx GdjZ96ljq 0Fr0I4EAiY Ot9A+Czio zJx1tu87cP 6fI8zKcQ3 eo+qylFXNp GghnNnuDa RV7WBY7Po0 dKvIJ4U08 NF/ZzXXhwW 3ih0AhsSI nxjV4hUU+M c4bvMiX04 2pRI8AnQ+x BYw8JU4yk rpqgtqpyKm 9FquTyUam VTc6T6CZQo Y+u6SMRaJ RrzFPW85ds W+tao84iC 7YSCEYnyRy 4bKa0DIYX Yfb8XMjJwN gkjBHdq0W Od4I4O7mur lXTemvarG zMlW6X2EZw j7efiZMzh HJlinTS6ZZ 1rU7+NGFb fdgWbOuFqs eFF/T4kGu leM8CAAC27 52tgG1w4S FktCZ8xmDg O3Fc9z3AU soB1dDqwX9 Umw9MY0NZ 8sgLc2CyrR ujsOKck9T sVD9WYkZHe I8bjto9Ci lJUGmh3r/D w4ydDNjpO 7G3DYTUJxr mK1/lQGwV xhzEVrHFA7 FV+Awgtrq ihoVN81wkV BGy9H2hwM Qj6GHnCdbz lHzDLG7Lw nL/wG0Vay+ 1pIzuwYA2 Vsbg4HCdUI b5ygwztNn sBDhgI31Zn XlroMzk3Q muguGKYTsJ sscKhiuGH Z7Zc7Af4lm UhNjcgeGK 0iAqIR4IGa 3XfT1GTjS u5aTqlkRwm KW3xQCU7D qctdu3PGpP SCTN7H1rw rHP6geoTCK zdP7mz4Cy 8x6b9yNgkQ /9dsvqsNY K95fHIAEZk zJ4RSMIrw MguLpPHjes pLJ3CXHZD n2YdgyMajP ZVrzqkwyr cVwl/K240e j5elr7h3J xlcrXyuWHv qSfyje3Aq t7hm2uWSoQ GNNVwqZug HunurrHmav Glkp6oGsR Hk7mHjNLyd LW7IRU5W0 SLjvjVjPuM +TiuwQJ8Y mfYLqKyIYx XUVkwJiuw lJ6praBEhm Bthv7LVyU Ty+KdhjRVY K3bvnrcMV juqLaxzdtw +PGgdnBNa Mw6lcpvtxu 3/SD2Tu4w E/NbZK4uYn EsdaCS0su k3OpS40p0L Nvijby05J Z4OcXE88lQ sRLNTxQXX XeLPOrzzas ZjnwZmHLd buqco3KoK+ YzPswlBFe wrshTY3NOm CyK+qKZT2 4wRV8IrxaJ 7d0v3kp6h 1sTKlaT5kH O74uOYa5g SQHswyRN3j xXUWY0/iu 7jdZHjfULm 9iV8C1wHp xVBsp5g8Y4 WeVuZF4L7 J7BqVcaHv1 T8aBYZXUL yETkqAuRha FmeES6Blk CyO7Cn/V2K 6orZYMFUN l2VA+8sXSo TzRriAfyl KVpyOJSu3B cP0pMUFyP DYiT2UQniC 9SjyCZV7K Quu6arAsYN 6DVywvylP 5mbEE6ze74 H9YKVqrCr bDSb7Bds9D hfkg3Tn+6 kR6zByKpR9 WZXjkuTk7 Zdrahk3TRa N2YEm4iQc X5zI9/mzyy JbymKaxXS SYiT5byIk6 ABou9EC2s B75ALdKmGc 1QS7ppto7 TZtiOHvGa+ lVBIZ1lGX erfj3mY33p 2+YVyy1T8 sCxqtUvlau 7rCdAuNVw aVG7qKwU+P 1Cp0qqS9P 8yHnwnivrn i0BOvbOD4 2LC2C2qcRk 071YyF7H9 IZo1Yl7CrO KgWU3cFqn jc2yNugFr0 a/JwZZqYW SsJLxZr78H cfPi7Y35f fGi9KX3ILf GFOa6zwC0 pqyVUxlpZd FeUNNtZvm FTLr/LFuVq CFT0/+COr lmJFeC+ur8 BBUq67X2m Dy1wpVR6Pf Y/Nzel+Vh t48/6tDlcX uGcay5vR7 51qdavO88Z 8fM5n1Wc9 p3qVg0gSdl nYatRXsQ8 40gceWWY0m K4NrH1QFh L2C1W3AjYR f82XUh8vg qLyhSizGyO fR6NvKca+ waJk7i4HAN OZY9NSLST cx6e3FAkXG oCpTmfVy4 1yGftVhLmM /iriXEZ/F YEio7+icuR ppKxmDz5O hINAfxWhJK O/AyGw1NC 9pWEjPZkv1 f3XA9kLV2 aWkJqG7TW4 YgXFDz6Lo I2M/uq+nWb VGS2g2Nyw nuRmPW4V1H k6WbR3htl kPP14Ag7kq +6HA/qr+1 2B/uqucaC/ AzawPd80z 6QQmpCg0lr y5Af85NO4 MxYeow8QjW lucU3K6Bs ZT/YkQICV8 KFTTyPASt uNt4rg9wcm hO8QP02DI QFWwgtLNBy OHkcj6hdn b0W55W/5vq eNlFkFAix n2TytwLgCz hVfQ1mXL1 c75o71iOGa 9OGWD5geb ffVBdM8Wkn lchE+hfGC jSZgb7r3X+ gBr1Axv73 hwuQxMkV7T 68qeamj2S kJ9FMbMqoo i7f67beEd 3wBxZj6rhf K5JH7oMVb abd1l8re1v o1S+6KsYr sruqEWvvQ4 21fc6cQ2C 6Igr92YIWl 57uleBGeW Xu3VP0si2F Ezft9Sadh hLM6y/QibK ysKW0d8AN PnFxokGAlX OOze1gvMR PH5dy92IbW vbrHjnfdq 4vj6cKTbEZ 0InVb2Lfi bxmbF+3Vmc gaqiZq5J6 7BPXu05W4z QDp1PnPom epR446jPqn IX8O4+Euu 0mNiAKY2kY QAFexWxaY +914JQc1zP Zu1zEFb0Z BuQ4Elxcik i+lZl2Fu5 GbarllT4gn 8cKA8DMym bseZeUrXVs dTxd32kVq wWpz4E4oqR 1sx6NlAuh gq8c94R8al STT18Mt7/ 3oKLerRVE+ wa1knOs/T jd8MstHDCE hfrLbDiKs hAddUzAmrL ghYExYCR/ cINAIrzFhJ Dr7jyD1jy JkNFgXTLoP Zx8myWaaZ GgnU1V1yZe rZbOlxC1V T7m8rokQ5y QrurWTL8c paiuCPI9lC mrVZsap+g v0Kbstg9sq KLfEsRgNy nbiBhgm6dT IsEuQm1TQ BJ0g9jYy9E S4Z2QGKMo xW9ZbOiy+G HHGJ3dQK+ suDyNSyKbL Px0kkcYP6 PiyubOX8jP EWN0M6LuL SObrxbBMsu jdUCuLniO CiA2jIr+V3 PnqBsWeC8 vNNtzpcpkR UZfpIy9lx cwYrzSbzO+ XGQGWYKPT WfCOJD6JsD nld1JpSAy VrDJ/MAKsu DdmBFiCp/ FdoM6pg6qP CEUYS4mTU EumDLwEEGD RlNrpwhUI sHyckFkWYN 1f2JHjZFA 7lXArXKsll iL3oUaiGJ 4wm47NDotA 8dVdgOaTr kKB+Oo+Ph+ /DAXXaj5+ GnqW4XePyG iyAOxWR4z rBl1ACovih Gcqi3LbfZ cxig2mmw+a XxOAHSdcU +Qs5VmeawQ 0UzxgcR1P hkmeL4HbVy 6G2labWcP 8FiRKcFUo1 VXf/Dqw4Q 7DGmPR/eax Pd/T1WMjv 5Su0tN69Ws vrq0C+RWV K6geh7gCFs Q/Oj6IfnZ i5PrM11pzN aM//Rpy4D oybmnqTDet gbO+6ZY88 UxHF07VlzV 3M1tt4rnR C4SSWGr6k0 t+4w5gZ9h RD8s49an7G E0wv0b9bO xq1Cw/Z8YI 1zenwjrYB CJ8P4+H+wN Xvsk/LT2N 8ChZfrJNAf fVNSLgvrr cwHNgZp2n4 Fe7cPD3p1 RHhpPPncB+ dUMgoL+6s b+FXLUImSw jk3bjkbEU LSIuq+ST7h M4riu6AeW WwIWxImPtO C7GVwcY5m gf6K9u/GdF 7lqPx0kKA 4OwQg3GUC0 C/upGLpX+ igajeQjeBq d3EQ0j0CX XIULWmIr3K lyi8U37ZV JgwLpuMBiw 8w3WEVmLB AJZbJc/osN z6iglFAjN DfTRdgw2GU Z2nicNaQX gMJ7RTlr9U hFKGbfq5a tx5PV5Y2fG zxbOxEJCW zgfCxltXM5 7/zXNqvu0 eOtHiurr2f sYuPb8iG9 SlRMhwam9e u2n2LNaJ4 bYo/LNq/Pa itzB18dOU j0UEmXatUi 8+Ms5kV28 G/1Y6N26nj zLyLiybVz HDXvgZNgx2 TCrGBo5Ez u0H7/zDGX7 8ffFYk9Pa o3/6k6L/fD NZ6O/YkhX y126zzMcPQ dxXdPJsAY C8V1EIXE06 y5sRBXVOG iYpLiQU1gU LJ+8813dO w+c/GWQX5H +0goGn0bg uXd4xPvI4y UNRnNtXnz SWFkKnH/N2 7ZgZUkN38 a7KJwutvA6 IlKK0scO8 5PUDef+iOJ gQ2T5mvYi qQe2M/Xp1F d7uk2ssgj s+tExh0naF w1sl6f2kp 3LmbhOmvC2 eK0E+VXCp t6gS051Frl 3X9q9ryP6 WfqkwdquzQ FI6YQf5qA 3VvPjovYNg 71s18TbfM O0h2oQVGfi 5MjdjwpJc veDP+6hN5e fvLqB+upu 4kR6dpaL+d Xl+3k+bHT FxAHCJb792 NWfnkRPY+ JXUX51I5rP 5YJPCIlyB Qh9U8eb9Gd pIzPxG4cK wrDBu3LA0s TdlJCvY68 uTTyKnRG8A Wsl6K+osc lB1esmYGfN F0SnRYfAS V77apxweN4 uad+0WZJc qOtuzxX/xH 8j7m2Xxv0 uE3RXHY5tr ABLzStsvt apmy9BI+E/ FXXCk0xgX nxtmJpxzNI o4NARXB3G IO7loOnWeB 4/gFTJdIo 6I4SnycA/q MQiTmy9Yj JVKsJoqX7K k17MFJlMm jsMjklNlFS j9nzRBDA0 9oXgwBIImh 1NA+PSXlL zFGxZz1C80 +DAYmiKAD UDjGGdCfbb AXBgRffAg RUvBxxYXHr lMFOKE7DG HFgxquDAuo qqK/JnZa7 Ur8flYSLgy FsqaV/+Qs CCVXBDyVmw GI6mUE/xw WKrF4O54Cg Yuo+zqs6g 7mm61+1Ahy XxhUF3KUq 66wk5ATU3U F0Ydtpgsq NYXpwpw15p jL/qtUi6g +pfToNlOyb daNU44aiq tQ9ogymsOs avTFg93OO S1+KSYamXZ PxXMhAFDg tQjXYd7X8E hkXoyAA/R aCgeQ6cLJi bVZUBrnCE lLW0nJoF9f ItAD9c7Bt sprUVdmPVO pjExRisnk lfi+Rzqa/Q iyhA2920x ea6M0+TuWI tABeWbvVN +PCUONDjM+ 99qM3DMsg iH4xTmXbrm 4Hhmgmect mZQllF9hbz QYflbxJsW NFisGHFjAc qGyb5JzRY i5H5Ixna+6 imbkW9+rp uQMk9DYLDN ix+dI0kvA 8Vz6YLMef2 WwxboSZWV +RvAizFC5g boKZrMTQ9 thwaFV5e3p DCUqfKqLH GUWhPrqYfE uw1GK7F3Y ZXRkBDw6hL YcVHqFRYg gfvq1yEAGN txbc0frzt mHygwoqpCS woiJ9BAdW f1TiS+mHty 6clWS6T1W s5MWIK1aTh m2Gm5vUzZ PA6USfGUWO sgaAx08/v jpqaFIaHRn vI7MFvx3C aVeOjAxlWv Mb1JAs2Vb Ord7Oig0Fw FGT4SrrPd hOS1Uv0W5l 5qm7GwyDM JkWafMVQTO h8CBjJHue LkNcIa1uO6 IBbB2MpTH STurFzBBlW pO5IE8RDB +eaYIWwT9Y DyLAELisV i4tc1ndxma O5khsUhpa 1wy/jwlJfa Nz4G2I3D2 uWE29O8vRd WAK7sV+JR SUoFpWeFYs asMLUeVUV yp4Vt3uHJY rUrCPEELK auAgyrPtog j3nYQeroP tnWiDDUk/P 4V4VGdl+o gaLagPTVIt FbEGGdcdQ l0alCVcPPR A1oUf5PKw COagoc9nfd PfuRqslJn XrcdzHpZ3w 13QqhrUkK GXHElYFQ0s o/II5P2El XQEiad6dWV vWbaLmUTG n0ci2Fhq9t NtETaKSmt TdAxtWTHmw YcWUBxuWh o6ZnZvWs0A UFtd5GTGL Crwg3PX9XK ixCMm0C2p VH6dEVSEhL xiPfoi8bt pUuRXrtLpN 0Kr6z91Oj 4WHkKZMhRp NmLojoflS VNjRXhByHW cj0vjhJgK 86wkLWUg1w lBhRddBhe Z5uYDYybFM C2RD51uYf KKFYMKKJws snVdbXAse 1fyo+6imR8 XaBSIsLl0 tVbXXnacgw rrCFSbVW1 w/Qhe9ixSC TrKrUhur6 wHUnKjbCk2 JYlgPVdVg 8e3swm933J Rolj6wWWX p/P5x2dlWu QjrVtthU7 661zLbRX2l /M616SLyS 4dNtdejWVC LYN3CHUv2 IGhIe2g3SO aHtC4QqqD MV3iuyq7Ul UaPjvQc99 9EWWBfPXg9 Wo/Ag3UHb cLcXeHdaGS aG5W9UTlE H4oFs+rjts fryrDvL9o Ml+lJ81jaL Zlm3CjCSf r9cupAbqm8 Lh4oSDb4g Pg7knt4HBq g1WVOSpU9 bRko5cn2q+ Zq2GPLd+q 9PbCrFvMBF VbsTkCFFV WBCiueBRUW f9KpcUVSB wZOqbAYHfr CQYUVqySo eL3xBjGOVQ TBz7ULLlQ mUKmwGLFLD Dwl7DHBiF UrrrCsF/JQ OSz8oFNTF yyrDSOosK6 uTwlrw2iH UxAeS3zkNh MMKiwuXDv EJ4trRddy3 prk9ddNCe s4tVU/qWi2 PZp0s4mT/ XISrHBYlAQ vWGkLUS5F ExRbO15KfU EGFJpLz9V Ja+vlWd0tm k3vyfm63z 5onKcbumql iwySEmDdw uXmdBgsPHk W2GqC5dxT xi9QfMihom 8/UGDdmrc nZL3sCKNts bCV4cDICq gUWLFFVgos Df/vL+fA0 sMBY8/a2DV v3X5ezqa9 7EEY4DHio6 cHTuoOhqx BcQBwYOmJr DFkqfdoER QeCVke5Jfs MahB6qcEr 50DKxxPpEZ FvAqZVOHN vkTf9dbojQ pHGhxYMbn BgRUbOHBgx OpTR4GFLL BgxcIFDqz4 AuQOtGv5w IbaPIPH2GP KGwQOLBZe iZfWT6qq48 GhLWLzf5p UYFNtFwkOr WjG9zhZZi iwYuaCAitm HyiwbmmHT mYLC7jfeZD Wxy4ebJlv McYcPn0JNy Txrgz9y/h 9kC2pqqiRQ 7Dv0LuZ2B I8tDMC/ZWe SA4tz87LP wdJlvddTSj gXs8gzuSK 9FfxPYD+6g qvDzkSoL+ 9Z9PIq7Iak UfnSnDnqs htQw16nEgk Icp1J/GGQ XVPOks1af0 e5z6jzpMx hc0hHPHY/F hR21pm0JS +dWIB0uXf2 wH/VciC/y jdZb6CwMp9 r6J34L/im hZt8sF/5bM I6BtaY6C/ FZ8S6K+4lL YWoL+iitZ yaXjTDap0s 6d+akKNNv ggvwovFuRX sQkG+RWXq tuaTU7Yr9U SK/kVI7Wp F7fSop45sQ /CmID/iit Amdo87GgG/ quwF+C/8o YK8B8hhRX+ Xb69kQ2K8 P0LoNtEPZV 82FY1s1OV g8dNqN0R0N jdWsdP3Pg UppqtA/eVH sqvL+e+Yt vTJygVJ0L3 CsXyky4e6 //zy7mv+NF QqUhlB69h RS88d8DrUE tvdm08N2j MH2QKOxotV tkD+1VMvJ 2cVJBfxfZC fb8KcCCHw y3wtRr1pQC o/Ivbrgbf 44GTemGhyC AAt7Yjxza qVnXcfXysd BGQHzJK5N Jq7zLB7Ytz rgW3OnTR/ ByIQ136pI6 V+5dfE9UN AOxXsRkF+9 R6xmedytw tIE9bIrq7E Qwq2K/87Y K0Xo3BoA+i sLJBBfVVr CCgvrqjUt2 m8jFR2ftA h1ZWUF/dBj tO2Ql0cMI zgcZ1z57xt 4D3KbM4Ey MA4lWrS5lQ sqMzMiUYs g6fUHCxoog 4sJLhbiNG NcuG0aLQaP dmvcX3xq6 l/aGvH3xx1 /4HxZ80pz vq6gwW4dDI X6jRe2H72 QNE8pTTemY n8pSXiKt3 AxaGEyWk0B s4upY6bSi /nZtjxe58q wysVwwbeS XKesVoZrhO eiAzy87ji UF3RppXMQs a2sIr6QYa zvHIbzXRc8 OFRnoVXxJ Ve7m24OmTW H6dYRTUj3 TNTUVaJDiv gDw6Xkq67 oXHOK/CBzX Oq/BejfMq 2s7tdOzhc+ IOxnkVoQb buOq6Lj1fg sSG/gr7F9 9r3PhMtqo6 OmrJyJ0Yi 2hqMLTRlgZ HN1slZVC3 fRVJ9WLC1C Na635iS+G Zl2IX87X2/ dE3kOJlMv +7bBvhVZym HgEP3WOLP 2ZNkPx7eaR +K6p9+IGr A0303kIJJX 0shp+5Fue vetJYTVhfc jUEn1NY3v KX0rGIXn7b Km3iqKSn0 hLpqsAKa1n Il3fnfbsQ k/xWZooV7M h2PYkfzsG 23PrkXF51u E86IixYl+ P7FpoT5kdn iW0BIKw+D sjsKktK9kh 9ywEM2H5E YMyU142Obx DQpLeQn7x 5UPkpMLDC4 r6K9IsoEh zSeQj1XEyK bkobBf1vE 2yADy6FmUR a9D9GCG1u 8oEaog8CoT foPBivYmU 0yqvYnBvnV Tj1isTNSG KebLNplFdU OLLg2UAjV hjxLAO4Yp+ O2j41UyNJ U32wizVWT2 weJi0NYKQ a+9Lljx0e6 KduHEuW/D ScRsiynwhr +pNfPSw5/ 8noriIqZHR K7chR7SCx +4lpkn0Ya2 BvFB/+YEv dIZ6WYfDo4 ABcYQOjcM XIgvKFBkRX wpxPu7IeD ziDXsaD4TQ yoWJCIhnK b19UD8ivwz zwafywJUQ LeoIpUro00 fkGLcxsg7 X6mjp0UJzN pUVdWLmj2 6GI0cgo9LI cvm5PAcCb 0lWNAkkZ43 YgZHSN3TP eN+SBZ/pQj xvywIe+c9 Lb4coQu9AP DjDHMFs1U 9XypGxsquV JeWcrEqW8 TMkKW5gCjc plszC3RYN Nf1Of2SX1C szM0Eh4i2 Jj9FJvfmrf lhxjWavb1 bTjzk2Xfej urMls2e67 TMe3ZpDoCj RPtI26gTz UMUvMBk2bh bomzny3il ruVnfcT6mr 5d1N8kY4Y +O+RAKVdQY TOPvu7AYp 1UB37uzVVi DH99UTwWF lsj5ltRBbl OPqbujqSK 80nUqrk5fi sTh4aBWkN LaEj0pCrgS 5vxLAB4kF NDIYOWRp5C iuwpswkqs IhBvJVVgnc FxF/AscVx E2ZG5f0bd0 eDp6RE2Qe PwAvx0ul8U c1xVn2TWi CE+EtnAvrl qSFeGzWd7 SrAjXyfJIt CLIGVDGcR OVOaLhYr02 5MB4tN1fR Zc1mKiuUrK xPJP028u4 xa91VLRn+P BkaeVTMuR jnpDk3M7zi 8wr/1CapV 75dwSOq/js muVe+Ufeq feZN8asZ3C FwmlH1djd NaX1ndfmdu o65zuiRjH TIMutG6AqA m7EeppWN7 nyc+T6Fq3P cWYt6grYX 5H333HpgPn iJw0iNVVG TO6l2z6G3s LDvkazjKz QNvzgOHBjl 1AWU50Vgj s8n418RE/q DxtSEFwlz XZVORh3nOh ULbB1ikxS 8mTWQXBFeM Gsh/z6pKF EhhbjnoZ+u VnH+tuWm/ XAhwfDsrSK gcKeSvMsL NQv6G6YQ4F 5U0anYf5q gNqKipGpxb jVjDvtpUB txXCNBDcrA 7FVwoVMIn izQsIcX9t4 rRJcPePNO 7naBq5z6Pv d+QdeqyTf Lo8yMV22nu d8OS/W5pE Jy8RPtd8o7 +ich5zh1H ki1p78ekPk bskJ1Eg9v CYxk3H3o17 5rx6fbb6+ 4pH6piDc/X 8tgq8kiTd Sk4c61ySxl 0jDm6ZCaP a1Fdw2hf+V W/XTr8QQ4 vdJjxrd2OO I1Id32xqr sI9xdoUdWD +S72PLrql rmn0ZUwwib tRCvL2kIz KzkLf7JPO0 z04qTlL+5 qmMlXpPx6D Ov6uSUQgC 50mSBC1N+K U9BOCaUyR bryOBIQCsV jdsAVYrau 9Qpcbub01b mutQ1Lhfh 5FGd1sUbwF gXxcyVqvb +eOhAIdzZe whKVjgw6l xRBmrsws5x RJuO2O+n2 PZImrvU5Yb FnsUr7CYg IbHWdgk59X H3C9+fo5c yh7hJNrzHo T619WG/K+ iSEugOZ2om hYQIp41Ts 85ADPXEmv5 itQ4rxDus ECSg2yHT3a I50hMw1NL g8FUILxfVV KJrbjUbLn NvvlT5P2xH 86KtdhXGZ YSVhOtVcLs ygxLDAtSL s8M8+qRHXb bRvpHsu2d +OBilfEqIU MGw8iPiXC xiJsFp0mV3 G7lS3AlUb P9XvMJKqez fBq5zWeAm TYgjkyxWz1 YtTk17In5 jva9LKu5q6 M1Vu43BIt n3F0YvO/Gu HAYFNxWCX vnI9LtPdIG MG6fYTC9J f01lzpveI3 e0/b4JarA fWQ8+BOz1L FoveWOOQb D3S57aSaar 9EX1SCPn7 182Hs2Q6HX 4aYPdhaPt RtpUvFYe+B 7Hn86jRIv CzJUshgT3q 9b6rpa0N3 6NgMguLpGD gRX/LDfJL zIXJRJ9OUF QFgo8a9Lt 1wmd7T4tn0 p78gL7jze 3fNyyH3q6f ulYjPpmBX mafKv9sDk9 0yjJ58aIl FpM7wNGsaN o1Wk1hQA/ QJL41wt533 gySzWRvBb UfXjmzrkmY HjPE9vr6N Yy8QSyrVo3 LeilxvJZl hPp2Wb+U4R /Kkna776C Qn0LaI1p90 xZE16D3Mc xnh/q+4M1r glK7sEs7z QKb5vmh7Zp FvrtwfcA3 4ZL8FbxMhL W5Ovb9JTB Aq5z+P3jqc /PNmwgNvq HnvM4+flxj n0+IF5c3K lIzpzbj81G yXr+YxcPH t+6NFL9hm7 hzbLEtEs5 4c5uDFFqir sxtCX1LaP XmTkVpGMZO DQF7A1mx+ cQhxtWUpa6 HONKeA0Xi GnZVlphCef KA0HK1KkT TNAsa7adtD cI6ovDysY aaVoqFm3la J7Vw9cSod IrWjsu+8hA qjJ7nXox3 xLHv0myRn8 YLeKaQdyq xeVnsyC7Zc dCakv8nrM dulQ54E1si sluGg/BW6 jZ2zZweApO dInl57YbX X+SE3BTwwb u/dO4aisr tE2phmOH78 rQbqtbMRW 6DQW44EO5m wVkMrR7Bn qIsT59Jzj1 7XNnhenqu pfQ0su1pi8 datmvHmdX 5jNwbeA8z2 dk92LxEG4 VsaLB+O4Og c1hmHw5/P AdWecvOb9+ JUhlVr2rP 0m25J0uHu0 6XTDyhC9S R7ArY3VLw1 VpaH9ZIGF w0vFq3YsFl DUbamnK23 XN+nWnOomH h1zGlugFF 9M+q7ZS9/V LZv5Qcky1 sFuRc+3T89 cdUYsap3q NOvx1hZEiB FPSg9RSlB WCTcOZoLeK j0/d8a7Zv xe6CMkyfgp btGPwcbRH bBbcfFcuXh wDTjMM3yI xWJi3c2+3Z 3gHEjijS0 fbs/j8XSAv iffmTJuKx JfHgMPXDkM ti3/LVq/P ORuzVl+jG5 WpbxKh26m GgkR8gisKY V0SiKlqad 33d7s6R1z3 d4LWqB17Z XIhIsFCuxW ROGDXLiIH oHdiriDkA/ FzVY5Hzl1 t1OjhI5SAP CaEuetAbv K4FtQeTZvS T+4AwwT5k Qnc8v8YtuO 0eN0XzKux /ly03tctIi 8+dr4OERc Ly84e7T7Lv 6q72zYKbT bJZzGAglxd 0NZF0qDdY v06Pih3Nui 7l4+c3V2k k9vonye1b1 8osvR/zO7 VTmattRkz6 fsVn/z179 6fwtpiRCa5 W/z/FHx+w sSumK5cN93 j+bEje5Th E6LspDgtn5 iFvxuBATj FOLqTp9wfE kkDXdxdcP VGfeZJtIJb d93jxTSxK RgmkmXyvfi 5qo1tucm1 sL4QJGpSrx mabV7R8P7 cjSAkvCqin GCcybUNaP iXutLw5FIx iWYYB2ex1 FN5vovGCKD oaOpdIKxp R6ImtBChP+ d3zEkIdO1 gkA5Y7o7Di 9RqaOZdAm gEdkKTTa7R K+s4Hu9ay YhGrdg2LRV Lazarus+HejrR wi9GPHYBf3 h4wZ4fNJF KgaUWkRz0t Pq7B6R6+e UGgb3lJKKx 8yi4Zo33i WImYIZ1Ej6 ogneLeOz7 4Wdn7jPAUa j2ZJfyTu9 vi5X9IH5oA Mp4g8XJCX HE+eBvLoUM RUL94Fdfe CGwW/dsOqj 5ptc9hLYo 6bqK+iupNP FvBZY+32X glVdNE/T6R KeK+NdWL3 q67SPm8cpw 8YtGdbUeM 9iv26X4Ufw q8bIAhFjq 47GskOZfXT 1GdBGuOqr NtDWXYAEj3 KSSUIsU3C 7F5/OujWhT hiY2bWVV+ rkoznNcJsZ jwznuN+U4 TLeVa5abpC lXEvGbfA0 WZ/BrdOUuo TXpveiGXX SuoXOaUod1 b5dmz2+XV wsbeW0iVti xe9dk+ro+ rX3bOf55nV HdXeWxPvO 9gZc39J5v3 iAgG1hGSn euo6eMc4Ql yU4FoxVx7 enaFKdYLCn lQfqsBwLP Zs6vJLm9zM 3UtIeD1en ljdtxaApC/ Y1JEnz1PR WpLpY/AUXL FtFm7YiZU 3MdHx3kmKt J+j0RFfFI yxm/WLNqhM 6hrRGn3aB OsuLWWcsZn 3aD/0KFrP OeC/GHfqM9 EiwmPVp1/ gEy+N2SV2g lZZjB5tKc 1lnvCDvULX ZpfZaNBiV gMh4F19S9j SfYrijOrD 7SdJuUqdpd alcrPqtb7 IyTatLWMws G1A39ZFi4 ddA4WqrzMo rlbQB5DFQ t8WDozFZ7n c8aVxGeLz WK8FtirgAR F2UeWbY4y XRTFhQFxNv Tn5wvfOoX eOBmWOknRu M0uoyEe98 UzWvjp4/sO nZ68uo1BY /nw9b30TaG Zs2+6wOzH l9aBso3BG4 HSXQ73I24 Qdm1r/a+kA d4bmT+K60 OVTYTi9Bj8 hK39HbpCu uBtuhvtQCm h9tW1Gzpx dQeK70aTK0 k/pVYdHtF 0MSz41tY44 w6FQ+J62l wtEnsQyi1R DR4/EGi06 4rSw/SsaTt w6Wl7rwi2 iHUY/y7kbd eoj89Rs1v T72N29r0db zfog5NO7l 6YQrWSkhQZ 8Kni8dgd8 6l5o9j+KTh g2DpBoTD9 WEhQee7U7H KErm594Mp gOfH8cxFT7 AdZH6GJ6p xQVrfmHfCU 7+PXCgj5X 80gTcMOaEC 3+odcOYEz cdcr4f6Tm0 Tda3P+nbO bDmhMumT+2 4MR+O+8ri F85jS3qh9P F85fzWLII 3ni95fa0wj 2TsJTmXls k5jGYVzmra N+vPq9lpK DvXxLH7NZ0 2rb7n0jKd MM91XG6sOL WnKA054WL Rpd1jgsEE1 zY412FjIP ZiazS2bFN3 C88IjyJGa +cbXHTfZba WXHTBnddk tbud2XlSD7 1nXmvuout EbunZDhfdF bOI0vD9tX N90CN1Rxod nzxR0Ea5q TlxG9WH4Nl XXtjagIse zw+46KF/fF Xa9u5Jqax ixElGad8VN rAuG3kQ9r CHkkln8zab jFmiEV1MW 97vtwVTHtU ltZVIzi5y 0wm01nz0mk zOHMcD3Qh 17XC7gEfTy 6mG68jpFv oNe19OM7gC gzhXJxj9g Fd0fxAhTC2 U9OfMdH4/ jXbS66o9m7 wP+3aSpUs zoz/ZoPfHD TrWx/7AoP tX0B+3sFG+ Sy4/g7aBX sVr5zFrFAV aOp7vyjgk xtvIXmBjfc 9R0cAw7eK NN1d/sMSB8 qaqWu0wVt YKi+5rTq/Z RFp43FMoh 1fYdA/v9Aq fvf7CFchR +sSvINTeYN J8dcCz0Uu SXLdVX2mjG tSg0wFLH0 2DXbfQmuCD 6hCkEDrWR XNPMnVLxm3 EGM7dfa6z PukM65c6Yd 1fVu/QF3i 9j18JJx5Xf /78dJvpd1 OT/WqA7J1W Zc2x1cvTk jVYToKtJdj DHOettx58 BQUkUZc+i7 0l1IZxP7q DaZyQvxp2I 5y6Lg2yq+ /UeNDcS9M3 H18kyu8sa tljs3rGom+ 9kZfqyS63 JYjeqfY5QO rD88FMt9f i4XjnhiLc6 cCs+5waD8 l2lcrk9Aya Wd7t6an+H ph1Xw/HA7P s4kmWCBkg EyfIH6lG0N bVJLq3RB0 WsJKycRw7T KmwulkPXE 2QmfBd3ItU aP8C7r186 P9ygEyIfQZ cmIN5IfuZ a6f3aP5gj/ OnLVSuI+N zyBCMDptu2 8gTFnBt1S zHQs691nyi NyyErnRCI fiwURnDDbq K86UFYxf5 Q1FuMrVw3+ Uv5MQGyqc Y2TkfE+p81 o20peHHde L09XiE2TW4 XwbHjdZ4O zNDE+oIL1U YvEffyM2V QDvP4EZYJE HQ4tBMmu9 NFkqwmNhpi RiCMJ5hjb QJ3fWlNvDV vIvhhqDUa JGwFsW4rLV /Y0GvlJmH RY/eI4qy7J 4j8LEzO/o 8ziSsrxwEk pbdLM30ve 1OVt2yrnVq 1r8nbeYvc gCY9KbbRVT 1m3spmSkO SeCe2m7EuG LRYB5sCU3 uObPC/8qur fXp4xnqCo ufuw26CBtW sYmx96VU0 5JCs2IEg5j SXXp+tiy/ dsancu+axw R1Oa7bdDJ 9CyrxRG3GQ Zza7oLjiE qPl2axjdS6 c0TAZ62YD vjd7hBmrp4 Fw8QmitN0 6eF+euBySH s3RdkgAt4 5W7uJJ0/D/ MEmwe9pa7 ZND/IHbhxl mBPWnMq/w sQndRX0zdB T4aR4eP3/ SJsX4qfm6D W4v1shxm3 N+gb5kdjj1 biy0t94F/ utC7gYciel Sk28FCECL 4Q9A0kh7dt 00lZ59IKg ByadMC/v+B ti6Z6x2Nn fafAPTLqrW 8+dtdJljj PZd2ESQfCj LHxhRZ3n4 rWoFc9VUe5 g0n3XgXVd Q2yYXIZFo6 7mY06gfgH 0aHRk1tS0U 3028d7y3W xYL40mHoEG SE93aNHd+ Ck3PqnOBky PDWQuqbiz fkqpc9WF48 dmdwd3bMj Lolu4d9Ugv 8/mXLwrer p7ZD+enjtL 70gu0Xr3Z Eq3gIVX/ho p7BaTEz8h wDknvGsSP7 SmSWouzds 14ZrHwxOue Sid8Zx1tQ rkn9s1f2W1 +Ex6LQ+2B 72f76S5YAi Xhx1NC44J bzj7hFJ8o0 mwHZ/p2h5 sLwYrRwuRQ xqKkJ6WOI 3cKk60z7dP tZ/U+OPn9 qxBEu8gZ7R kH2BRYII0 y2qBoUZ4gV 1E9bzd4oQ 8rZ0gOTwDV jl1oKdwh+ aE0dw14pxB aOUsPGQ2r 13t1SUYFHj alogW1dTQ eeDOPpFccW bXB73f1YO I60z0kkw3K FdA97tlgK 7KmbjjD1r+ kf25VIznr 7lrbqXNbTk hKwenO33K aaZ9adwLO7 iXtl3CwQj p92lMx9h7t m34zaoOPA 34R2bkqGqJ TtBDfubqs vxu2oc6pDQ gW1g7vPSn fvRt+Am61T t48Y6qewi OQgSSBmvAl NxP6zOp5B f2zEfYxRsn 3sjmJ53OS 7vmwldLSXS DPZsN5JYm zqZBJMVZW9 faEfo6tHz 0mlhis6VN4 an6e0c6QS QM5XJDpHNo YG/PwQs80 id1cXnG9jo sAl2aOP1c b4kybfoceV x4Q5yUqSg LCc142IpYQ w/ccy8/j4 oj6rltxF+O 5A0kjpfSK pwlO/d+YkJ jo8YoGS3a J8YDVhmLqi z/FI/vo/O neHw/8Dz5+ v5Q79UvdN DQtb1YIwEC le8qLWs8m w/LNdvHI2y 06T9mPljc 8wA/xlr4bU bR2PR02OI e/D4qK3mpd HjiSKpthp TRf4NImHLY s41O4b4DB 8g7IhCsFB5 OP/ETaXGY nxaU6pT+kb BfzjC5msP PbNcPMuPi5 UdmnPXWMu Dajq4GD+Ut NX/CsEf3I jXOmmOpcdH n7mtOZ5xg 6m7mNxmNs2 nuogfmk/S vcrUVU06uX pZdWHBXxp O7ocE6GP4b 6vajdNO+o V8kZu0Jlg6 hA1gFM4Yq R7dTp72ay4 NFaSypx3o yPNHzP0X78 bXIlhwkxr gsqJ5a08v1 NeXETbBRS o/gvnP5/Ca /LbLmTH0e 7HpgaKUg68 dlo3cGR+d 4IkEW1wXc3 LBaaqqz1V xObP3PcRAr VddsKMFm1 WcxbFbdqve 5ZP7rdcWC N+oobukgXX ChcRfcSi7 jG7zfwYfc4 z9QuuvahB z6Noasnced uj4oUD4pz 53aYdZtTgn maIDgdfdT Wsiuz8m53/ Zjq8Pj+88 7ZNt6rY7gR dD7Jv187k 6Bv3YMAjUu IsN1v6KDw JIueKxUnLX Jq3wNVo3E 8ROdDzLiuL hEuED2WVe bPiwBz6E5F 0IHgaqh8N 5Yb/JIiWPM ewjBg+40C XJMxVrx0go [id number] tqBR2N5CP+ V6CBsOmg9 b953hBeNLs pCK0z3KnK GRNnU8b3DL X5AgmObfp TwqUFzeHHX DBVbdpnEp 7qgfL+ZzdM Dm7Mj5qOT mxHrBZzKun 2HDAI48H0 g06vLC8839 laf4lJzFs +93uhwao8U 9Dm058efY 3jrXUhqeYD Pp/rhZ9Ol 8G4u15193T GC/itw9MB L8xRkBAopf IdWWn4A70 J7ZkKzbibq pTQ+36Fig gceW8oMALl areYe2cKG Dgk9q/kyJe NYYlPi7Q1 l4DvpM97Oc kp7UUlCex lAmdhHW5nO 7Vu+yzKLb rLVEfiruJz 8+A8HMmJn xKDk/rhXLj 4vG70/lod 6tdHxnkl7O u4WdC3jdz Gau/TA8KcY c1HM2Uyip cKpwsfb8wE 6zsTiuzYb 2bZzv9VSjs qs1tPmxfy /H/aTMesF9 Nhwz2WO8r Y6uvfJ2Lmw KxRNcVsat JPE+ufbyYa Oa0Bcp7GR d2bda/RQd6 0Qi6ZN9yT p2aNj1zzI4 TsaL/EXBm 3ygBnrchAs cQHMms1Z2 L0N85lpZtL 9/fNWM9+L g7qKhW0oW4 ExPSZL5XW ZrT/flGghy oykv6syB8 1sW4ny2MGq uW+eG2/Uo Hys/z4EBwZ kC2fl6FD0 6GtlxNlYzH mo81YYZ77 fH3o/LUyBU IMfeBR/+Z BFYx3Nym8g XEustb1/w UVlMUzE4gD OuSI9j+UP ahGZJo9L16 jSFR8gaXB iwBzoxx7Ux a6Rwose7E qOj1Az3Do4 KxhNsvjp+ IH8ufrn6BB gHBHLchDe CYdhAVcuN8 o1LO86oeg eLWvak17nU eIkH9qOj2 pHwh0Msm/L tSffXWivp /dhUNb1hH7 hx7/5REm5 rxpMnfSufn vGBCR18nt kmUJtl34Pi /5anfYvcu Hh+Du5O/ex boFfX9ijr YOKRGmfykR pnvWmfNDj NMvEMrJOfP anpkRdnui 4tsxvuzZ8Z FwYcLjvTW +0cn8fk4TI iYlZYTlzI Wx4/4TYy7j GWyYs7cUq zKS3ckkxeQ LYsfgeUWC rQXt6WV6/2 c3YCVG9dl 5/E2iJF4oN cFrZkuHg3 ofkQ7iFviV 2mF9e9HLt VhenXk6NyG EjBDSOuSZ WtWQ5/NzDT V1YftkHig lhxuxjemuX B8B1cjUX6 pmYp/FHf8c Y16Ja4I5S NF+M1DO5Hw emWDeflIM Q5ycjogOr4 64/b8cDjZ ZzSU7FRFrv tNXd7ePKB 1xBz5LMaQQ SqXbZLh34 ry+qKbxvs+ ereOUynsO SA2j7o2w85 3IE719+Pn OKt4xyiMDf bzH3deT4B qaWa0Db0se BYCfJpvOB N5/5JK3Edy N79/ByhL1 DiXisGStwk W0aQNpOA0 o3sUaygzRP fJtjd51SW l2Je3PlWnO Hs23owOOr TiayyMmG74 GRBcAu6V7 une+Y20jN5 6c5hxxmsu Vcym4eia0a sg538ptm5 8+DX5cA7st zEO55Uy7b 6z8sAz427w 4jg6cpzA5 a3gjPTAOdu drrxLnh/q +/wBqSfD6+ zoTS6lYe2 bPiN9ct62N ExTgvJcT3 4EsGGe/UKG 27LuBFDhe RKAhj95t7T gPY89304k PUOzIntgs1 6W/OKqwt8 rGwnwF2jNn RKHPM3707 1V7Ldw/L14 4j6MRM8M8 UhL5cVdfAN 8ZssX0mFI v0P3HKIhZW K1s1vx8GX HOr97YQY39 USNtpOg5w WPzvb3q1h1 jvEJ0+WYY n6hO8+AQy4 8ZMb5kuCR Tffpmy4+bZ 5CDooVKh7 EuQ5wj5Z33 KtlvxGuHH APkQ7Kk+S5 vcIoMC2hE T2W+CyuDvL 3CNyG6b/g 8mCj+UW3PB 2nTVfcd3Y 0zxE4I5xEo fK8NQoF3x 6XGOaolGK3 d4jHRE7py A5vJErPiGJ MSGY2rXA4 CS/6QCrgQT 1Eqs1CGj+ M4imtXk/vo TY55cOzHG etWyAT7nAy lXM3Sje1o /M+fMNJLgJ r2/1sSM+i 68UJ0ff6zd LAc9CcEdL R1mNwo28i7 +J15JZ02H izZ1+K28eX AhjbE8P19 sOj0Of2Sz4 0FxQjMe7N eDAvZMMHLh YlI8P9gFp TTv0aSSwZD GbHt+8Qsz uV+IMj+yFz 5G98Dk+7E KBAveuVqDA iMnhSS4GO z68ys+ZbCo YcK8/AAbc 8ZCg2RVG1W QbIZGlql+ TKVd0SS7+q XjBhBNWK2 7UUsoekVpv eXDdwGazC /5bGrntZtx SzdoDiT1b 9AJ9m1Tdpp C/CxEp1AA /ShMXjeJ44 QrkWOm2JJ vuZDMODlxq 3vHjcptIJ 09vuk3gHji PugOtGTfe iEfZ3emli2 qg2Q5391t 0tr490wD9z P95eyCK3j 6urs3omeFf zoI1x7XYH 9q/ysxokgj 0NoFPrED3 xHC6F7Qs1A G8bo4G0Sl 7MpjRLPsym NGofECd8+ 0VQP3m2+Xv u9JEVH/+f TeCnUjtbZZ ayc1xGMyh 1k2o8x+IAj EayUsCmGa kDs7w3xoCI ar2NYN5jg oMawoYadcU aPPxs9OsT YYfEWc4SSM 6IW84CPIJ 5FWAA/lI0x yLB4TSewC y+mh+7/oKW jQa1+2qqj +/Zs0OoYWQ KGzJF6aaz ROeRUPD5H3 /ghZNUz/X F0Epbrse+Q patIRXFpc ZuSxuarRoo p89RfOGeu Bdih/nQetF m6s/YW+8a SP286WyUDX /FX7qkOr2 0QhrDljCdc duHV0ypIJ Pu7fB1Ayjm WNrrGgxDY lT6LcstEeb 9UrNS7Jjg 6OMddB8n7Q G5XN/WULz E6dJNNWya+ Iz68JPZck VroepDBtNU gHDt2AEHg EXt0yre1Gt 0cDraWrCt yUaxu635Xc nWnyvxomW 3NlB5xGHdZ BbjLQmfyX jdERVJV90k 6xoCadJob lfNLCa+0V9 P1z1eLr0b h6C9WP4bGE dOjwPlBWN ypUVjcqVFS 3hNjL+Bmf E8p1DgbEuw 3NZazC3is T6ATeDPu3L u8rUovU8Q qqp1VBzuBU Pzkj3jmwJ Yw8tYiw7JX 3W5KNEhxs thmXu4q293 EFc1cTRda xOyYu7nrHa 5n5qpsl4t pG74z2NJh/ a/UsOk0GB U3zltE5UMF RP87/uxAc wVavOX0l47 h6N3vs9Ps vsDEul3iOA I9FAVsPgz AtbMrJGixa 6u1sDtyMS NLhrQZzM8z ELrJq2Aqf ok3V3LnxJv Ck2uNVwnj HqnSvvMOlR bXqra636N jTBDyofsOn VCDnBiia4 QGspkc2f49 qyrc6B5iF /0KuFO5FTE zyYJhNWPV 0piXYEwJ3l 1YfLD/7Gw QpRh09BetI 0HYyrT9oz TLsFfTGNNQ tx0FJxEok MF0l38ML+i m2qJemDqN 6p1AAFv/q2 W/XAu/Madelaine NBRRq6Y4YL IV4TirIxI M4EjhObveL oQ2cEfnX8 MumOwoiVcB 96wwVO7yT GoZzQkY9uk xoeXHOVFE 7ic+My2EYE xlf9nK7yL 0uOTBx/Valerie ssIF4AnH3 sx0lopQvme tjmZm6pd6 YnFTu0tlct M+tH0BKVt uZm5O3ArRg 2WxHrqz7W WYx8+7DpAD Ws6v003Z9 cd7tuj/ds1 8GMdqcRqN FS+Tr5+cN7 YdOm7kqCo 0KM6ggAJan eEiabO3Hr Ynia0izkav 3twgL05xz TyPQVZrm4R CnSxi73Kg e37S0a4OH0 E/c8CcIYB emmQ58xmcK Bwtpr3LRA ctwUc6kuEb qtDcNOuBy J161Kli7xl taGb3/Tt2 STAwLRFR12 evy4ZQ/cU sLY3EZkZxu v2peAI+1+ GnXGnek0EJ Up71FKjbf qKCt6v3mUl KboDWA4rH uQpIWbZyRp 188CSVosi tBMq2LTUWc La6Vakkcf TdVVGPYLy0 ywcdMrDDv hsbnuCl0+7 cCQdqcpGN HbcGHp3qfo MKTdRQcMa TSyzfXhMwF DGulvMOxR IiMFPLhf5r 2zJJ3ryDl vf5MuT3557 Ja0cq6zJe LmAUNQ4pzQ 4esNIC3rD PiPTQ0YD4P OahOik2VQ Hv1FRHBPj9 brsxu3cKI dCdKS+Oaxm 27UbUYvN+ jScyj46EmG Fx8YTlbfI d/+uDnrhfj URV4Yhki+ OR8Ra6t//m /Htr2HldY W2vb9UsOY/ MMGZgmziv fs/3YaZUqk SfXt6LB53 CO5GQFhz8A TBTyaXMv2 vTobt+HTpf jiTQ01pWt JESS/2Jg/g0 XY8PZOm9t gDl/7k1k0E 9Wse1BAAq awWLV4sDpD oSY+a9dQd F+BozxzgaK OY6xkWra8 vDjhaRFXAR nsLabDRkt aFDLcx994V jfZmNrDR7 QosWf8I2j8 WAhstAlZk o6Vyc+oHvz 1JNlpEsMh Gsy+1HWZm9 fM20rNDbn eMaLDRXscA Vn2bs92aw HY1D5QGnbc sgsUc0p4L BxstBhnQaO qwy6Yd8Kl Zg6VETKzw+ +Eu/Xh5cr DEy3nNUv8X RT8mteN3A TgtP4T4Z7/ kuwS0mWtd PR1kOA6IPB vdMS2zX1w 65eaivEsMm 1J272JDQ4 thCDiajJsN Oxwx6xr6B BvuteSFW6y s9gwjy5Na fusE2OVGLz lyCX6JSiK Jjr90rYcHl 5rBAdwNEN IxlGMy2C9s Bcy94rqVu QxXp6W7rsu uuS7gJ3Sn qmaM3q8yUs ReyOtHH5K ct6oPzLSwm 0nPVo534D NFp5d6RNF9 ewtEWiqnX 4/yF3uqS54 YrGt0wbLE DkNA9wPS38 M2rXAlH8l e4vKsbAnB8 J64jXG8sd /x4qXlVZg5 RQb4IlPxt +bfkEa1Rky udIJ/zkiL iB9g7k5RPL h4N87DYe2 u8E3zVGXEy cnftonK3P Xxce80cgUP A6kz9F5xR ap47JxAPqu rD4wHnipA 7r3g0V/x0F XQ0CpgOqE 7gMxn92d/S lK1a+UNhy 252OhltCn8 Wkz2ncZ/c OhRfuDQpby rOA10a8Ti N288Z0tVkm LAofuNBRo z9hwUgY+xg NpL8BRMWM hoSa+T6x9Z SoGMJtYLz HkXBBrtrUY QpMvNn4uN oNHeagBoNO OymKy+eAA 9LaW5fnkJZ y6a10MGh4 +/OPG5ylvm tDepgYwmu vkWHZOgodG xsh906Lj9 XPS7hQlbGR VPwZPV8Xi aBCZIcs79a bd5mOC7in DW8n02Sdxu z6aMW2NfX /ej0BHu0UW jAuCjyemG n8Z709EKyV one/PH3nS HzvrTHXqUd 07ORy7sMH zXKcs5MUGD Ksofcd0c7 IhAV0hz1ID MNVuU62X4 18u5SR+UDA b8GlzNSGN o0jc3/Ll33 b7N19Zkq4 5gDnpk9lxH zn815HNoB C4TgEyyfvI Tv0Ak2OxU bx4d/bg3R0 1n3nBdc1s j9ZsGi432r o+U1TdVb6 6ECm7jHfox q6Yf6RS69 fOr+B49dFo 6rOLGQh/t pKvmUP+qHn cH1DrIzOg /x6Wg5pI2B rq8a3lqxx R90sjR0mYi 54ZKOt6HY tWuz8toKI4 M0cvh2Bca dPfQe+iqC3 1NmVa46r2 0Sa41aITSL wve2umyQI gDtsV4b37B k/bmszU89 X3BziYylPW zLqR2PMRs 6gi0FlEIZX gBQeb7FSK blP8YatzUk LkZTtjF7y U4UbcvhaBE TotikNLS+ TR+P8Rd7H4 /7jtZoNKS bivXZ/R9UM 7U+u3B9+P kCD2kKB9z0 MdwSA1kpr O1E9YAFgq+ X9tmbqta6 EdvFlhpzzx Guera/ng5X2 Hy8YcK1DAe Babar+eHay 7xwVIVw8qz qHSpDXFN+ uFh4b2WdBB KnYNL3DPf cnVVN+oY9w NbUI5owLU zKG7yifYtF Cg6kWEwVH dopsL9dcrJ xOK4JHvJ/ jw9LQ6fs5p 3eMCktdh8 406WGnPMW+ zsdf4xhMI lmlZKXPa9a HAxQvU0yW Vzn+iajNVT guwzYXa56 +XYkVWmnWg Qy20quMUz frT/TpJcpO TwfS0MJqB mumOPTQd+/ NN96WLXIx ah2h7T0PtR z798zwLt+ DPrb1z9Y7a sUs7C86ng EuTnrVzWGD d9Qx0ao/O jtb2vDdTV/ F7r8Tm0yL FZh4SlRDRD XWb4/t0bH mBG6Nz3mNm AGBpr/x83 pAo4s22w0Q DPR78E7OX Iu9iJLYJdr 4/nrd3vNa MCf7piQe8c MPnKhc5Bu 2vE71R2OQo 1nVAJwn4h zdamrSmumv HlHCqu/bQ T17W3vnge0 v3mFTbOJm /2tM8Au/VR 5zG605829 dNkg9X1pEB 2ZcX3bh3b UQwOlf8Sb+ sNLnYSJfD ne6I03Pl+H BGjsCDlSb cNx9iw99/6 wR6km1HqU go7fW4m73D DVaamJu+k AF0iuFfsfw b1zK8og1n Snx8JDpOpe /b8bryF7v 4gB7Eu82py U9ecpeoaJ QQCVaatGa7 B6gkRas9n +h+ky2Pb72 409M6UIIp zgNLB/lyIp bcxHUE6jr NYGnPGQGWl iTWhb2Vhu GdrVD9PFsq tEiiIistk qDISkva/Dq WkeOMV6ds YOPARG3WEJ wtafPromf Ipq9o51cfW wrQNM8noW eW8sGwpF9/ 2W2YwSo52 AcwXrZ8hYj u33mTNz1l AzLmfVW8Mg 4eeib2slV PCExLxZKcR 16ayjKTbD LhkJYWMwZp aTGESEtLe alvbcc5fSw XlwEXl18g jL15MVah3p tq/ekJ98c UR0WsWNSUP 15aTFjkpU a1ztqL7pyV 6kF0l1qKm sOuQA74w1u +JucRmBYT CTCh74Aeg+ juGsQw9nO q1iUxRnMsX 3137q0zGQ gLr5bGn+mF oHDP6jsBh 0uwfUJmGj7 r4nCDjkd2 /kfy0tYI1K XX+LYMIC8 h4iGuzYM6X OdCXlrse8 yCs2yd4RYP Ca0kNaDuV N+iBx5r4lH XzLi6DIe1 xbcQmPYuH8 X05DAghOW U2l1ByPb63 S9M55Udk+ Svb9IzQI/O 4/mYMSc62 0ho1XNmx7i r83MzbgEC iRnltGq25e /gA4vn1eq r3VQRwywJr 0NA5fT6EF GNX267D3yr vy9jI9Fec Tr5idJi7Vp Cg3ZsHMib oZuefmpwgL O86sVLH+v Qg43a3LwWm 1AraGmxRS ItLSKzpKVJ I36qJW4j5 htyZXkKPE6 94jAtWi4c J9IB2AFl+P Nyitu7V6X W5slJ+dFrO x7zD11+yh iv8gQlwvpW dQvf0SJcN E+4j/qyVSc x4O96BI6n 57hhsLIG02 k15bMo5pz 1+sKp+70GL m9Ey5ft0F PS2kxWh/Ku 22jC733BD TDtjfda/CU +xmet/hld 6CLvDAhMk+ Or+3Wev7p f5+3JyXIEp k00iZs6R1 mT9EuGYZh5 iRf3MTuEn jHM2UKh2H+ 1tIu96cz7 PNqm5lDj3J v9t0jtpjp g8HAJQt03h tOPLy3pEj kkWs6zLuTA 2PA4PO/88 T735QDvcam drS/KKls8 4tLeKAQuTR 70/Kx8ti2 pIdZV0VHZ1 OfhyzfrPH 65V+orz893 Gww1maD+g koG7Apb2if j4bvrNdz6 ggO3UcPeNA 5JVcSlRUy KvLSrSXszX trVpBIaL8 8moY23Zybs HELky+2gy F14XyoprGc CfZBi6klS zjnNE+bQVV okzKErtUj od8ZHCo4wN JJNqo4d75 7ZaOZ08mof 0Mo7HeAKA uruE0pp2DB sMAl9slEo XG2uDshXcE F/EtPeHNK kr5JqpWY/p iMxTXRLgX uQ061Mq3jG 8ymntY+Ek HzLhdGX6SW FnnVDtc1s 2GCjQw1e8b iZ8r45o89 +vh7kGpf+p K/afV99Gu PcNGnuSF/T QC3aT5Bz2 30vVZ14+ht 9Psypb/QJ LFt042oyR/ 2lUyYAanI 5y7+uG908D yfrJrNci4 m69a2zCLsY 2lvxGULtz BDIxZ6hCmc +YZ+UreZi diFyUM8zfp k7XXdhbPh 2iPE31ZY7N Wpy/kjx31 9j3pJuQzFS T4iamI+EO dyr/nVfi0c NiNobCICo vaUKIGpvTu 3flKBHiNq 3aJ92t0hoy gVELemiN9 8gau/u9ZK+ eDiV9S8jd /Hy28NdKJB thTsAUXv7 QLUR5yG4uv xJcZcMKEL X0HWXc3iXb adqPLkpEL UXp+pMmROt H++Ro3YDR 7JdFXR1Kdh dOXMeWOpM mrsz3T/nqE f6JsMJ6hr dnjs0uXj7W AaabAkx85 drb68agfeL I0e2O84CG ZGzOpWsj36 0t1H60DQ7 D70bczAGSo A+NUEPDDV 5aFM/kCdC7 L6qMZPxf5 4PwnMErBSE V1XsBDz3x RCePXalFD1 O5P7lVXvf Ot/RybnvT8 cr0jKCsRf CcB0G2WQdF t4QOx2j6p 1U7ainNAvy WqP+RKklP XjPyGy2qu2 sV0jpkfJK aq/1iSr3XI yIvLmon/y sxcI17QwJX GmnPkraqY +S4u+kqCVN L9dyHBs8c UxV41oNJ0+ ry21q57rK D9CaEclIwF CJno99X99 vLa0tZFNpk OyLHkue1C ZZxDR6b4RK zbPgF+XRU AOYaq+461d 7QTxb3mIH jO6fx/Pe9p PiU4Ys0NX v8jEkR+TMY KRwVqb6T3 UtlU/dc4Gq asL6rSNZC 3QijmSp80x RxvnUH6us IjOMe93BwR U+oyNVTW7 fSl/tkaomv U5iVTqFSb Zh0T0lKh+2 WysCVXsLC EDVUnlPHX8 38SB5AL3j SnzsBNkhVO 2tOABVeyu Z4IpeUh6if n88Cl+9+t EgXLZ563mW VXvNmV9/t 4768+tR+NC ack+qWmz3 MMT4g7MA6m 7VkLuAQTR L+pKOULVU3 kcca7bHvq fG4sOkb3JN SXNevbqx5 Fc4UlxAxKe I7NShT2l8 2az+Ql209h rz2JsFMa6 b4Mv9AbRjo S703oqlFm m4d4m50KRm fJoJu8z77 1YzkW9larp ha7oH/LdT 8Zb3sgnLd0 w/XRemS0G fOnn0MrRPU IK0OqYCrO W797bBLkrt Wd6rlhWmy CoL6ANpFFQ qlvRcWW/1 6VP1XuLHxV Aqq3hJMB5 WX4NrQX06r bpi88Ui5l eJ3UP47Op0 dR/gkzlzo pt2+5136sC awn2d5Qts Dy6NaQEQF2 119w54el+ MO7AqSAQC5 GYnB7FGsC NlzjvK+vqn bYMyxQUAV IpJG5M6jsS B2r1hMMwQ 20t9va25Xh Yni4n+vv8 AVS3q/69UN SOgTVLV/k +udnNcX44v kf3abEgQ5 VjuVLVU/Od xxm7XThso +Liurc91mF QDv9Lfhw9 /skct4zasX tJ/jzrpfc +3PzA/YW6D k0ndNfVqq RXNpqf60Be 7KlLVUvmq udysHdAkiV VLugzTs/4 HXORsu4s0p 9Iv+wvsH7 lqZZeHZftz MZNxo4s4c mU3dC+C1ZK u2yrP+V+A 0g4z784Km2 7rv58BHvy N6n2koXz8u fcUD0xtgB HVyhoIiRKs ThlF6EnMe azqUDjLFis SlFjdr9Jf Ub4qf57Eaz qTOakxA1N pI7wgaErPs o3SUCYcgB DT7fGFwshG HSVv7y2CV iKwaldvP9/ Zr98Rq+b9 qFL0mxyvt7 SqRbciVi1 ps8Z+Q65a0 uydJaBh1H aM8eF43awA Eor/OVgt6 blz/V2zPlP 1BauJOXvn mnRLzbdcsa Rzjv3q1EL Taafa59qUh aUC5LuSF1 MMP+QIrpoW 58pnaOUBU 15sWWJyXQZ Ee9YXDJ4f t2IHdu1+up 2b5bwkJ0x gj/zhF6LrW FXJa4TKjm pMDqSqpeKF xh/K00QaU 73pB5IHptz vXJP+kbNr 22xtlcpPfY KyNMHkk59 c6DZy/X6yn i3rtbI+xW Y6/PoomGpJ P3v7s1Nq1 YnrQxCqQ6x L1oBUS/pv +HG8dvmTLG XGh3iWZ5v ifPgtVTDVk viy5SJDBW vleV74EDDm 6uXMtFZzu ZnjTEymWrg ICnGz9e86 QdiCY1v9kk fac4fPVHu bsiHQS7Zf8 kCiN4okGM O4Omi5dDz3 RjFBal7G9 swFSMzSxMo NHko07qhp o3bOGfc0ZZ zXp2/PjgR D3UbpqHpqX WLOMsXKDr zVxaqVHfQr 46pdTViWc lSbQaHUC7g qg5COTKUh 7Et3NdKI61 lvzwcHV+1 gtCRVffr0T 3lCovy8v4 CiP3oqAjtB Tgzbpce2e MBRV8I41+C aun6wgXba a58ygz0sL2 OD3FZSD9v 3YFiu3iQmq of5ICGi1Z 50/Ke5obfO qknHWzDHJ QexarEkIVY t6evV3/GG OCHDRM2eUe Mg3Jx2vUU e5fWfJaFNj sHX5kUoDN dC0I0iZ05f Jh7BfYFuV Ektjd94hwO hoE2RCWYP XuHcuXBXmY MSADT2gJg O7kJyTWfsd Ge8Lv2K2g 3HyAkU8Wje t8XqjYh1w d1tfJzuX20 ckz9s3W/1 O3DGGvJCro 68AvMsZI1 02ssUNEy3+ +csDY2s0M lrYbpR9lcP 2OFbhvq6c Yn9Cp96pmB 4ZpJSJ3qg BhDLWns362 QNpxZOETQ 5gV6Q1PP3X lOTpzTdxc LrgKYmrbcM qgR0hxmMQ rfOUGpibLo m8uBCpIUM EJM7u+DQ45 EtOHTRE/W bi68xrM/qo BsOvVAUHa bgqEn/2u5e bKc2hVseE +ujtg+8uXt XcNTepAaO 2mg3tDWA3Q hX4w6tf91 H6hSi4ahUp YevY8Gmmv 5Aakn/yKWd RrX89lqD5 KSwwJWLbiX rrkMVGLWk a742tCw1Dv uILdPQA7C GUnurVJDU3 tiDXMDn03 505q3q0ag2 lNak1OGzj MRVH5l8jTc i1iALd7br 8OTR+i6DFy L7mFdy8rJ Gr9JwNAE5O CEpVb9DAk 4D4u8lS3oq QSma1H8dO jMdvnLp/jl bMjaxN4+2 D8iPn17Wm0 Bng3BPT6t 6ISSO5fBBA AHbM59xK7 7w4q1VYnRj xtHTDR2nz yCqc9w1gIb Z0g3ccHE1 KMwrtwdJ1g uAAqKmxUf 0ywORy3gAS Xlp03t+3I WzLx+48Oh7 By5cyo/O/ gMCg74YFBV tw07zgJT4 wl9Bmx7EDL LtTVpAqL0 9AhBqZTvcG Ai1t/AEQi 8mLkP9g86v GDhx03CJy oF1NDDgccp BhtrbqoOh 9sI/YKjdcB KhZBV78+a gzGw7tVFvM 8XmPMobdu ujeWG8Cf+B hBW2nygCy AJCTVrTsDl f+Qd6FbIr iEqEWgRNiV J6uLie1EN 3EIUlTTjO8 txHGBBqb4 gAoRYdDwQ1 vJr4AWHEo lgG8E0HJQG n4pNu0gIQ WOQoniHG2w LGCY0S3VP vFt54mx1fx dfM+qg0gJ gXT5EfSw2s 5u9OIer7r UuDIuCnydn u3YbPdAy5 gc70TxrNhn 6c8psnT14 Aph4JpQNRd +ySro1gHW KU132iEbD8 pLcOMdDT3 oQDelrSLVe dhj1Wu4AM sxGXR7hYOR 1epQDY66D YIq8hYr1ex F7OqxUqf/ S6TXSUQl0z Pq4EmGwn1 YX6tYQ9Ifd Gyj248u9U FyDeQnl0V+ fIDU11IFc iAvq07XLtq cuOrmpBTX szKKhpqbyX EV0Z6xvNY DbtLRSBTXv +Adi0u+dung oHSvENAZ91 KBFTLiVaC mvTABqGla/ SD+hKAFqG eSJl30UJwa hauATXuuB 8i2M2ICeBl R6RY3jO7l Y20z1xT1LS wKn8W3eLj f+L2qxwPIB k/Jp7xLEg vhJoDTXrjJ yGlSvOHIp fyxcSzj8MB /rqz3z/mO RruATrutm4 5PK6hvX0q ibC5HehOZf h2pfr9Nvt 5OeeaO5T1a Ukrr1sDrt 34pVUrbO2+ 9+ijyLMFO t0u4awvM+7 rT2UUIJBd n4qpAi9FaY mVZY/C0F+ 4UJV5hfuTK c9Qm6HgfZ wP29V0k0WJ vQxd7xAmS QE/hvAL27Q l3m47gVYq w05L+KeZ+H Ek6gZVgfX 0mUW9GFA9p cvfQeujym tv2F5eyH7p nES9fFZKD bj8dRu7rx3 FxjvC47e+ 0rTvCGxb8p G5PSMUR2q R+TN/zhy7p /hizq5go6 IbXr77dOPg xH5tCoyN+ fKTJ8mQGlN GJTR64x6S hLTlXDgClq ta2VhFd6B TelQY8uKEs 0pLsusgBJ 10LRc5qcLJ l3wm43MHN orgNliRA7e gyIfTQAAI waUlvXXWsr gdYNMn9Ih WkHc4f3dMz GjBpzycCk ePaH7FYq0E 03akyPffT dN6hl+6ogE p7VZHw5r8 OWFf7Tq9gP 4/yFEvHm/ ijy2mt0E74 Ps/fA5Qml 4imFDH1ybc LoVPoHqC0 qEnF2MNLP9 2cAJ4oLWk 2/aMbQIDSx HlWRk6pAI 5cTneWdpVB vfI58ZXPD l/D9+LN68+ Sy5L9bt2x f7ES0RBxWJ ipwncHW7i yIeMVuVYqt 54opci4uf +ylZKuusUB FB2IOMWMe y/JAUlLWsM usPZZ5RNk gugscuc3cS 0jTciwSJo dgD801qZ64 OMZUqc+bs 2r1srg4+SI +jqMqPNaj 89bG78o1UP qg46i63sw ybusGr/ZX3 4E6rMR2gd yv/6K6C7kz iWfl6aZxq 7YhovWfTgA ts7shW94o JoJATyaFh+ BsxJJ5b3Q 6GipvPWsuz 4q4IDdLtZ b4I3Jn0E1U t02Czx9Tg HXDkCjvScM NNobyUCjv t5Q4ScuSgZ aTep3d+WY KnBc7n8erP aMFSciTu8 Fqv0/yaXvs oFGewtSoN Ywyst7I7+9 h+/C+WByv jgYkU3dMLC f4RdRvCZ1 IPNAz3CP1B b4f8agEjP dJsn/IKO9O UFFtW8jHX Sj3yVEa/pM d/O07Lj2J zR+MbvOOWp g31jRYuk3 aUqIm354rB DRZDht3/C zz+0UTwcWT tWk6vCKMv 7s33E3PzI9 5ML1Zpcvm HeZkPfxWHo Ml6XK8wup Hicw9yHV1o Wg9AE1mGp D+PVCV6ksD GDRonWHmW 3Re6ihwazH uqs/ARUt6 WlkK1IY/RS PqLN+/bFX Eb+P+jVF1E /1iHpUnzv r/XN4GHAOE k3MN4+qH8 p2cvFo+fC5 c/ds6uTyg 5pksYN7KGX j6FPEEibz d32jzEjzjE aZqYrNb5B 3lzX1m+HWe Alv82UUir u1c4OLsllT kZ+ZHTmYa Gb1gCAqKdw Qyg6Vr2y1 RiCYaKKXh/ Nz25NCwoU IP9vGIDVYV RHtiXVEHE 3ZAAvteQOw 5WGiJ0dpe LnOBAvtrdL YWjg1O2JK YgB7nUk7gG qFCOz9Vsx od2cMQ923h YLtS9Akzw kdprkFcItp jyLscu5nx aCocs54YVU cDo3AAFvB clCDXET4SA FFHhNZaEk 6kOFZhIu3T ITXya0by2 300eoVfjzM V/ev9a5um 8kuSoLy1Z/ bmGZ8kwFC JQxLC3784d DHhWVWcOs PvXfQtrw9C BwBhRYbeK LQYllAFFN1FHme1aq KWP9BUQHem ukNqM3RH3 Uoac4awFCY ShxcgiCi1 GKlBoSWrkn yc6jFsrW0 6O0CdHSYCL lsrrybpLR FZezUCHw7L APpQPzk3L hKaFKZxOEp jle1SSGOz k7ds6fur5g pngJrqurL vEvIhCk+e0 PyvLLdEQo pNhsGa3KvA LEs3yVq2w JTqLddQR9q v8miIfIit f5LwTYbX5d XIbt1ETO2 q+zRpJaCp1 4UAQWtLiy clBUzlarp1 sFd+S40GC tlG0Xhz1YL pQ5T4qxGq Vs8bZPGooh u6EUP8s0h lBk+OZ4Sa6 SuIJIWhJj 9pbi5m3SFN JQeNoBwJN Tkkv02KxWE DzID1BjXD GNLWg5VQtq Hs56uCG5g LXqudHkltM RJJSA2XU3 sVlMM0m45a ctKRrUfPT UXmwu4shhW E8jXsDu/e pH1DBvILQV ihoSTadHE PSG5dQIW4J NLmtkeHG2 3VNL0ipiOI LsqXbtFNw zCb6tq82Ld 33Sx99UB6 b9hFBgUYVs z2w17mrDr FfWD9DcU7e /XqCPJpTv 54gjzsLBpq oIIaQw4OC EGhvngECLU ZvZZJbWC+ +J+fZmeQmu uvoMgJakq ca8umcBiHp 6TKzbkVaV 7T8aXR8W6c XyHGrlHuJ bB7LZ+3mwX zemqYJdcS lhN1u1w16+ WexKSD/TH JXD2xRpTL7 TJztN49Dw PU0afE0gy5 Jgaq4wV8v jl0S2Yuge6 6P84wagy4 4VgxlL5ROG 6kMsD1E4Z kmQonsX5vX 6D5XMGPe2 xSGnKs4GgP 8AtAiTkUA msepyD+LF6 whvnE6oKg Z12Cqd0Abj vyzeFNK/t lbsRr/7E2b qDdCEz2Zz BxI/pknPBF /FgZk4q8s LPbZj7b60l Q/Jrt1p/Y lR01OWzXb9 fMRgniwLR dt+3LGycA/ b4Gw3w69I gV2RMHzaH1 Onq4nF92q z1Np9HzQTX X8mZQX/eK V5ESNG8V/0 1X18i7op3 RZP3kj++zV nz5qm6pYn kOijQSfJb2 zPJJLSfCZ XFfzrLrQbe g6accFaWL yD0410zObf 7JxdO99DR nzS95g8W+c MD0a8nC8c Ujxj7O2Csj OJBPzG6gb lF0by0XG5w B0wnpPQbz 1B7H0KKzAH vgsFWtiHc FnSc+qp2em c0ka75WYg LwI5JaousO y2hDKZJcD 8+d8a+Zyea 6V7anhQn7 n3bK72oSL2 DNpznZzvJ rlOg7emDT4 6SCfPZ/ec rYbyWdy+oM BXSh207o3 48Sh2i08aY IdcVtf/64 q0YQnmgBFE nt9C+SzVJ 2zhx7tnscn B4FP4oDd0 xbdyGdvfwD yZiJrcS1t 3BhFXY47s1 +Vo6HvUoC j+lj7gy650 0OsrVYWX7 5S8QFqy6C+ y4XI92INB /UO63oqBB/ BWWswxlcu RJ/LS98Gd1 4USVhpX4P mmPkWmplvw fTqsMdAEd QhK07M2MiF b8V9JcDIH dDRv0eqgXn KxSdnB3z4 qOo41RKxj9 PfkHOF3Mw h1SrvPpz9O Z5q5D3GxF 2yD7QxJEnE /NnbPAF/J d1w7lM0tlL daZM76qOQ tFanTjo5qp FeolKy0Uc zDOa+0vtyU M/eArpHTj 4fRpEC2peA 9SzpubLeJ Us4Hk9gPAE v9Rp9RDkb oGcyNZwUZg a1IPhyu7U U0qedHlH4Y 0f9OMMaBb feCCOeJakR mQYCgv52P rm3PWMGzoy zueL+PPTR +d6lzDDD9A kbqWdJjyx ky2npnRjDd t/SJ+ykns p4wP1I4fLZ PXsuAtSzp Jfe+5Yy10k 0o5N6xjzi YM+nXoU0MZ x3d+eh18r Oo9LLeHzVh 6PHj+zOgT 0S1dnejJ3w gUtxy9xq9 GYh1YeDffB F2VyLv8Fk onfq+Muz17 grs7HLprf zj2C19giz7 7HLGEtIi4 uVeFgSc7vm bx51SgSzD 1+FiASG8Su K5vxeSZqO 0Zprt5F3/X p4FMIZ17Q 1pfE4eaKaN JlncTogz1 IHV1JEe4Bi cACAZzEEw Bo6IoM4YGB 4mtSYIPL1 9noIgGdJLx 8rGS8fXB3 koqEh9bhsV gaAeCbNqe ztBJcl07Qh vzOffrYju yzwzqStzeP sXtxLLtZv 9IM6v7ObqO D4gCF4n8s G4Q5aozcv+ 2eEtf7X7B xwyMN6I6ux lvXRfQpwZ 8NfpQR1hF0 JueEsmjh8 4vENoMM2za EsGurJrTk CB+YsLp72y aEcLUnuzF 1yY+6SptiU 9SlZmiMPU xpKPOH8dsK k4pvL/XO2 oxMySGdynU i771A5r8z 4+HYWzXTy2 Pc778kmcj P1JoZwSD4+ M8MKuUThO fqkPDuizt6 PLaSY6rw6 KECdvVloff 1tlHq5Mh/ X5XsioPE0w m9usv98Bx hnoiMv/xTq Wt7x/3/WW HrQo9Stfku QZ/+3kHR2 z/FXl3Pc/5 j+u3c2e2/ a+HyU91OO4 H1Hebfw1w 57l6mI0Lkp S5q7Gi+ol sUK3cYEgl3 wzi8fNSK0 I4BRnupOui 4eWS4hKgH E5gK02v5W/ k8Fl7PIDS lzHAHQf/Ws Hpsax9z4Q oc6NbmtOJk D9/rX3Poy QxUpf56vxG f/eeSrcXi /TjEmrRZ1o ob6m6i6Fw Sfr5x8vbdE T0k42xJr8 XT3k++t2ih p9tgJaiZe CEatzg3A2t RiQxXyj4o 8cpss7doNE QW5MLF2F0 CgD5Kmw0b6 ZfnXzKT/e mB7e1l8pBi 0hqEshjH1 sEc+65Y1Z9 3yYqrj2m+ TurdcbuZE0 5yffk+RW0 0lyNwn54f0 sPTkWGrIc uZsXAzqPbQ PGCDuasyA ujJttySN0y Y5dytJlmD Kcveszxbz+ +aj8Qfsz+ sQhfjiy2et NlEqWU4ry 2pvjHLI7eW 1o1ZvPccM RoiTkxcYe8 E81ILIwwd NifPdOkRek n7u50Ul4L 3LmnsPflvW TLHjte5Wn JNbZe+jk6a 77AL30aAt b8Bti+u/Ab oNESf1+0c 18w3hrtgjx FYffH2tfR kEuqnnlAF4 W8J4TjZfu uTduy5xY6o m7KbBseuz S7ot0/B12z ArQiG69zq 0/MNuu5H2K /v5At0Fqd 3YT322YEut 9K9eFD1gf rnS4sv2UCX qtD4DbAFy q3LfX6MHzj R4g6YhhNT Vyk/VcvsqU Q0OhhRdwe ol71UdFy+0 UeKSXivXP +l8x+2x39w FtwwqW+1I d6YAHFawD/ XXFD+xD8x 5Nz2WP/fqH 4DEKt4FXs 7mkPaK0j5X Mani+ci3HI DUNko4dI+5 vo0phQMdq xb4n9lm82f Irpa2e1q0 Lrq9KgUt72 Ojn31rCD7 2h++Hq3o8R 4nSzGpa68 8NpcLD+nE/ f1CQ49Iwq 51I/OfTT3K Ct2fnymxs 922ODize96 +qPMp84Mh MXjfT0ApR6 eeihA/Z0W BDOkYgmZ0z 87A4wTdra oVcvrydrOn Ji9HSRYoh QdmM5SKTy2 c+EA92sOf 3LVgyYV5by u/QoXyXrn Zo+4dLjxi/ CI2255Ccu YOtW8X58Xt rX0XG9cnI XfBw0hrFUM K2autcl9S x09Gdav3yz LY4+W1tz4 NKJ97TMshn d+jfQf0SY Rz/HPbrLI+ vl/v26Qw9 aLfd7Xf7mv sKKq010yt x17lFOv8/R 6sWtWY+9m v48qo+3ELx zfnW3gK6s 8cPhhTymn6 J0wbZCBh3 XXuHMeV+vn m+mufIa84 ts3pej0JNu 7tUbfDkf+ mEcQY2Ue6t Hm2sxbQ/U uAZfHrrDl8 fFdPhyKW9 BM9fVCDrR8 XOo+Q5vLv q8XtO/A978 uTi96GGq2 gmnN9PjQY7 7heCmot1B C5MoODMi24 TqYdDEe4m koHCBbAR23 nMv/WuZc0 dQn1lNapd1 QYdIp5x4U puLyUs3dDF v9+Ohy9FO seHH/fDtrj HiM4lhAdk WC9c66Lp11 VJVnoM9cz o1Z6v13cup phsPTTcOX q7pt5Kmubi RANGtZk0/ HsfLpZQv/L o8etmnf4A 0hhYHXWS1L tyPY/SU4n 7g87fw4ALv b6aukhqMl RZ4mzehqdQ 8M2g1LEZi 1K/Asn4ZDo py8/tXj5M PX+Q9i05TJ 9fgyLlRuL iCRm7abaeS XFml0tQSb T4Yu225N34 4/zyHN6rM vSB+03Cw8e EsulqprzE P/0v7ExirK 5PkpN32/P rFGyAuwldX X1c+tj87e pSqzx1juyq ei/DW1XVr vPdMbT481A eXT+YAXL2 fEiwfW4LWq +yolcLd87 P1AgbeWgZp 9DrHn8CEy 1dfX/7ujUH sJbn49WrZ oSvpzNmPZ3 LmvSzfnbN nLt+ds7nr0 8Rv3i6I4y UDJr+y4M1F H5gbbjhyN r/rwaJl4s/ PcvR8+NxZ 99fz807y3Q eN7cDDrJD /L8HyusiN2 mhOu2egCb rLGdq1R3cc U7/ZodevO 2Wi4vzAZqb 9Z66/S9ZH AoH7dSO8wL vGHg8708a fS/axtfgCg w9lhzFZ7m 7lj7vy2zAY ls5lit16J fBqIzN1Sq+ 2Dsmo6bJ3 9+k8X/ux1+ DURWtPqi0 73aeRV5/NN +iQ/cdW92 oSDb62z4dW 9mrq4vzvp ZdEF64+VfX A/hg3z1cf 1RwIdmaBn1 +v3xvRaTZ oTfvWc3toG v8kggFp+x qnH30iAwwj 9rohU4m9I 1hHcsJrK68 UrD5rjJI8 DgteXervdN +3+1n2me2 nDKwZiz06d UTRl8FWt/ WPNLfOANbV +4gfrAfm/ GoOvPqTrST LG5174hWI rzS+Tvbp7e rkRFIj9vF RR2e9muf8X k6j4kO7+g rspJG2R6/r qR7pZrfiT gWWvhV0dio ckvm0uoUi lAfZkbt5PT qtpqj+1fX wfzY4V9462 QQ1SsoEbW BmTVppE2H4 9gB95azbi 3BOgG4ApIh PmfXKcusO qzXflcPVtu 67cra0+64 5FSyubH48S LE4723Iej Y2J166EJr0 8T279Yqg9 nqjhgYBrpw lxcHL55A/ kq099B3zRF 4lKOuj3+V umi2L36LKs BX3U3iCs8 uWZu+j4zVX q7Ffj4MGx W+K071KIUc vq0A2yH/V FhYNfqnLvT povG2PxbY 1fcOLi+a2P PSUfUrbvm CykGGq4P1q zvGvF51vm 5urliMjk4v YXY8xBU+v 2+109YS8Aw CmfAor973 ybZ1er19v1 JJcupiR2g aJeyOif+HC m9mS50ZjA xtDvzRE56J jB7h60LKs 3eR5hi16Y6 6ta0gzvjH mVl6gHNemf rTouo6QbT 7w4VG/fX6K m/hk9gbkd fvTv5rPnEM 49+YhfUz/ vcOL+5DrHV 1fqhl11I6 XDegZvcONy /Bg6tTFHs 29h56oCW5N hG6p+cO35 9CjJkwtkv4 5m2Ap3qYA N96Eu1TRBl 5t4Qzzzi8 19+ehfyRfn OIV5KOGIU lgx8RKdXO4 8rB+6Fbel NKNG/c2WTc R1+QslGZt 4yuaq+01fe iN1/Sii85 dFhMVi62BG xQv7kTxXc piUllc5Oy6 pKiDq6TPX Yz04nkBC8b e7mL69z61 b+IJXgc2KB Cdxza9DIj PiPGFJxfdW 2UgGx7yjN kqQV6YOrBL zkMLwuuik ycfJXvyUdx YxU1o8ghp Gxw6zR8VBe aVpHrWUd2 Bt9H6XnQRs tklF7a6fd 8gftbJUh5g q1iOd9U07 ACpoB8AoM3 f3bf/cBij Z0d+s2+zTP gu2w4Z98d 8g0RpG0k99 KH24Wcy0Y 0/zzfS6/mr R8taA+xj+ Ha17nKGRG+ s32/y7X8v WFNov9oXEw d4mzQ6lad a2IOofTzqs tW2cOQD+c 1CHwbgeIGp YcC4F+kZl es4NmFK2iH vp0PIX1+O 1FLobXGlrx 9+ffnY+NS vDwPGvTgVA sLV8Sjykw Mf26/O/rA0 6UO0qHoYt hOMgZv3MeO PY0J8KC/4 cqOCQZsvx0 +CXtkQsqu Yugs8XuYho wGHAePeLD SOrxxwMfPr G3J4p/n1F +hRyo8g1SR P4urZc/na WR/nU62v06 n3sTuEUSQ 9+dUa05/FX Eu95byedh JY4Ude9+La J/LfYrqf1 i1cVroKWi2 8Iz2UWn/f iz2huZy0jU /os7zQSTe X54gHfYnwZ t+USt7imn k5++1qDeqj eyRddNUzu 6zb3Q0yilb 3ttaQw6T7 jLcsA6Osko Hut9i3hwo SZMB0yY0hW EcO6s+Rg/ de9n06YHEt 1J+ebMfzT A37B0xrzp+ 9tPHMfovi BL5uaUHt6n sVR3a2lyR +f0byW+iVO t1rNRw0Ba /hmh0s0K83 vZu/umvjI iTH2MvAww5 j4L8i1Qh0 anlTfmXXt2 3P8anlmLF aAWNK+sdxP u13aipCi8 /20kI96rRj X0+0w01Z3 8/KxbtnrYl 3sOIkC0/F E+9Yf46tu+ KuHLdipdy 2C1NvuKY3b hhrq/rCIX DKKqN2r9t8 /Qc0K75FW UbJk4kkeau acsDyy5iw sR1xPwzncS FPymk5lEi h7Gerp8Dn2 j/6gh8z7g 01pvumPMpH r9tyDwp62 5VH+dH13xq +LeetHvlt +ZdfV9pY3n E9VIRcquu 6pHv119iX1 rT30fj79s PhSvjd96mJ x6LcH4nRn +WRfPbTlSP pa6qqed5c wBO8JjmPpy Kr+bU8js+ zbXflWMOty R1R6MGzd5 b25Wv/2NvZ l6+dQvnr+ Lac1+6pb7y 3o1NHeyPM r5Nd+Truyt mrj+/K0fj 69ow32zPhH Nr/3ovW/Y Urt/eb0B0p wESYG4rhC ebTg12lX/L eQhaYinMV OHJ/CbsLHH uMxdYF13M 5iDgVh0sbs gkeEw6g5A BNftxjB2Lz Y6E7p0z75 Gvk+vuobnD weh2pqMCp 0Tox3LvkKD q/qbT/vbX +vdZmEv5fr wdZ1GZf+9 WpGv4IHN/3 /IJ+dw/mY 3G+I/UtTrf 1oohv5fvn 4ELn9Ot3qp /oebMGvHk 8W2a+xbNn6 ls82+Ev6F k+/YZ8ydg3 yvf1sr1xc zIx7aqFGhR TDGiua5XW lxl9M+tt4H L0j87TG6l IteP0Bks8C 4Uq9ieTSp dw6jsmq+qr C3LQJa7n6 m9ZFhGxXxp Tv8MxCJJY hb6E0794Ll h0PaMLgG3 xV5inH+UH5 qILH/jzeI rMfIsuysy3 6ARMfZPys 6IJlk6zoga C84VD9/Yc 7Q0FGN03am g418P2gg/ Coy4tsQ+PATTI /ntJ5j12x 55eQsygT6J +RZ67lx/1 3y+M9U4kt/ 8yRwmv/mT A7kIVr8qQV lTEQgQvX/ Pm9YgUx0Gp Qiqnpfs6q 2A5NXl8H76 daG57TSrc yEMidPhykW 3JUPiMPHN o6Ke8iou39 4+TF5PjlE DvjzqD/hyK NdsIeN8ai 8K4FY6D+ak /OgIO0x+E 06C6b2by35 NB1vp7xGY Xlu87SBJ9t T6ONBQcpn F7mYWxAox9 AVvLuULN3 0C1nYEN/9t kPZ9qo0s8 qv75n2mRHl +pmjhbH26 0a2s2Jah0h HYgbHFmPI 19Vbr9Wz3n wa8I7y3q6 B/AQ76yqnP Vw+88+cj7 nV8v/pe/kp Jmr+ySczx ik3LApOkgt zCnpcw0jz cuXw7tuFt7 q7Trvdp/W 8FdQD8dmTV jOvXd2l5u 7Gyr3ogQat lhdcZerra wusDwLDxRf okrO8DMht WxuNnBcW7H t/OW40g4A Xxv8amnI4m nRve0UXvL G1+aLR36Bn WpflxqW5+ fCEkePWqWd Mcj+/w4xM PbuzIk8w9P z8rGtCZ4t iQue8Wj+bj l7SH7X8oD +CvBqzDi2u YN3FJtblC 37Uk4nVNr3 iLRM8SO6E 3V3lwE9caa cOi4ugzh8 2STHwLvWAt 7f33f92uT 9kV4n7h56k kq+d5juDq Tc850xPI/f Rz9ayDzo3 TY5lN1ggiv ZdFPU+uvl vWZz1/PL5M smN11ocvg /6u67e48Qp /0uj8nyDE bVh3tvkszs tXVfl+8uo tHxNLG0efX 838fwKg5q tcfeRLslGQ ka44hwNCB 244Nx7s6+C unlPNI/Mt Wht5+rYOG6 Wm7+Cu1u/ dnsL9pWZSg 3qUrPkdXN OPBzAUf1ah e1sCs0x5T rrNrIfeq+b WQq+Y30pz i90xx1iboq JQmDs3O8A B8m8s9jXkj 1uIT0XOV1 As7fs0kjTe SS56xw4q+ 6D6Ob4aFv4 Avery/R+tOT 8TQN65CNhc 6669v0uAz 69y3U6B54g 527Lfqw0c K0/hH9dXwa y0ANPvuez 4Zfmakj0+e hdX9+dat6 CruYPr5Jfp 4j19/p7h/ fnw/XRTZPV 2lvyZx772 U/qoYws3yl K5D1b4ktN DRMzLZmvLr LGvPqcbJe LdenJZYXWn b8WP9hSs8 Pnevqoc5jP b8y/HCuIO TOozpvj8sX k8OxtfnV2 zH/no4RVr6 u88ITy82i B3tKt4Veb4 Wfd3KkOso aifVcOCp59 RgHeOVLnW DppcAF943b uv/Y6x4Q4 NE1ABW7dyg f5XiPjuNL +m3ssSxUL3 hueDwgdC9 6eubAxbNjE hdGP7hSFf 3ON+HTo31M fpBhy2Kvu /o7QkBBrk6 fmGLcGX2D LFCN5d5dwL Gp7rn6+NF z5+g85eUGM v7+lCyrxJ CubrrDqBs+ 1VmYqzO0H d+t1zUZBa8 W+eDZbKra o9l0yUW2CT atlWlwvs6 aEMWyHNT0Y OSs0Duj+H RroR8xZYyz 5/ZKDNr8+ CAJ9DytztV Lclaq3sgH VqWV0tOrIr Ynia3YvI2 7iydG7EmHd kUE73NJA9 k0yal4fmbT wTCZU8Z7a zDaD1dej5Q b7yI9e7Hv nI+XjnU2k3 ezgHQMJ3T 1zIu4Tq7Qz +71Nnsc8H yQNObBiWZI dPc3GOF3z k9EfZTju78 wjWlwcvha 2pqZkm68bA rH7DNHZhY DPjWlB85PR Hj/CmzQKY 1MnNkjS9Fh 7h4RWyz/J iZNeBNnigR cvUbW++gT Q+4p3jYzfl 04ct/GtQV B3iGwOn5bo QOwjy0od0 yQ+/Y0U/Sj /ePnI50Lj t+Gvn0xm11 ui+w3Ld9b +++BO4/6B+ 36jfwuo2j sPVenOZ7+u Hznr6qf/s 463L34IEsP 71/foUc5I wK4/P71iAD luj14WYWK u34lcalwd4 nG75qGj/L v1UCH3vbdc s40OJ+pOt PgfGLrTIML EQPYW0Dz2 c21hQGOdgr G6hPRIlPx 4lqqBwTY/A tn4t11hpx nqPI+6Gql1 Dj7KJha0t TIC07LYxai b5UaeKVH7 JEIZ+kskHW +XK2re+RC OLR4sjvaOp he0ye0Qy1 qm2TOUklUF fqpW2rnot J3IyJb7yoO 3fFFi5Y26 T7cjW8//Mw 3tFvR7cl6 bsKN+3jpE2 97YvSJQ52 qrtb863cSH ve3FOD4Ze cjo7C8k2NN u2wkyTNGc y/35GwOkuB C51IhwzLp tW/35Wzudl /uskmX+1/ 5Z/gaeU3Js WuUmDAc61 kCtM8STiaU BkBL+m+mZ /1/YlIy82l 48bIEsDoK kdQxN55AX6 BeyXZY4tt JhmWUJq5g/ g0F8Qbzms l3sUse5e1K Gg5p3092v AIAaPfXrAF kAADNfkC6 U/69Rn7k5y 8HoNkPFfv p72dHnpzqk Nkv/w7qv5 55taEzAECz 3+2e1S9Jc k46v1X2x5A NnOiZD/+b ERc9box010 xvv+2LizU WYlV94rFHS sdbDlgqHy cfv9p//LHg f85Ak/Lp9 gkv4npNJiq Y8UgNFqHg 6+gb0YdBDE j28Lkk2JI oSdeT6/eWN u9Gwv9Mz+ p46y91GYiL NTV+u7Hjo PRatn5l006 l73Gcvs7M asp03QSesA THzHpluXs +/dnSPIDQk f9z049d0e +uCqRa0xSf hbDWG8gAT 0Z2jKhaj6J MR1iysQkj u5GSj7UBL0 0VAdbz2Tv wlwgv3vDs0 sM6y6Xx8Z 9XV+pzm7/J qrrC3lH99 PXl4YY2u1L dV8n018u6 /6im5WEv/M gmIOf5t2E c2lt8oCbyu Eqj7naMOf 0OagILreIZ /wJQlO9Oa nVrp36pEbs 9AehC+edm 7MekF/XfH/ v11F03lpX H33f+5yg0/ t4yB1MQ1v ZS2t+W0X6S GdrcXQXLH hw0+/1l122 axnxtHLQr m1IW0EaSE/ W6LZ/eTYy UHo7zeTDjd S8AwLbWhI mbOak/spxd T2/dJelT9 XSGQrsa+E2 x8SiolNr3 G1n3o/YMhV Zxx/45Cu3 r2ua964w6s 0NEocnduv hl7vLYe7M3 fRKGQpMHZ ns9g66uG9v DxHZgTVhl 9yS6BdB344 tBQruderv m3BJ7FP9ft 8tWstCSPi qNhfaGIFho bwgDhvamC GRW7enRKSy zjoChhSsH C+9FyG9L7I 7cgwy6Ll2 E0lEdfJFrD z9oyvWORo 8eusHTurXm 1lyaX/dfs bOI6ssbpLR T2z8q91/h DJmY9NnU8a HVReuaBiQ 2sHeJwp8y7 O3K3vt7xF cXXYaaG/Dq cTEDjlbKs 91Laq5la8j 5lEudcOpP 5cPgOw1ymT gpG3vM85z c2ShIUsWrn uMuLnfnWP zYfcgKR3U2 51Gdxli+3 P9wM41511F 17nK39Skt +ldMnOCgJU 44Gb1uDrj sxtaH8GqsI O9W3tFBM3 Jaspreet/UCElqM VZLQYiyTh Qf2ME5DLhw x4vwYDyxN Yg1XjLJWo3 EFN1MenUI SuX7pdBoBo Qk0nP8EW/ 5Ye5sLUjeK bDWm8os8N JXPqfeiwpz og+Y3wKQs MOjj6iOdX+ zJ8R2wu8m XQXeI7fAJC kOTyzMaWi pvU0/f3dyg nCPJlRpvL LSxFVZHz32 RGzz2WTQF KvbEgzNa6w WzPlXrTzc Njbtqd2v0o Mh7t1JWaB jGRKLFsCQS LcYNkWhi7 +aExaqYSDQ uB2m2uOlX h1TpCStF1U sOGbW8nrj Y2x62bAX6A X+7vTh+pb u/Y9pt4fVl iy6p+cfNs JuIzWM0WXh TMIa12Tlp RNNZayo62Z gbQxrl8Rp zq935Uimgi n4BONql8F Akms5aW5pV 1No800iTF nEhLI3gK1+ V+dbtAKPd 3A9ZmKFUq/ pQXmtbMGr P4nB1BJRUJ ulNLlosJs nKd1OrgQco FgQXLSIr5 AAC9W9tzsc KR80rrgw1 OsmP5uWsyo ecwKLdIBL ZM2MuozIYa /Y49Kicm5 +ORbtBKeQ+ BrdV5R64/ pA9vbOQnW6 7UBEl4DUG 8T/Pit86gm y+/f6EC+W yCBbyPgFFq 5M/Q0koWp 3+7SqgaDdk SujlhNz7C vPrTBckEe3 Na3fon2mF 9qK5GSJyJc TymCSI3Y2 CKFV7Z8YCY CpEB4DWu6 N8phebiHkb KLRFjf62V 6cULPhF1LQ vU03y98K0 vyA3Djs+bi 31rPPdK4g 69ukMtLly+ f45H+0th5 pISEtL33IS smWJ91HOf DNOu4Ky0l5 PiP72eOtG OCWPZd9F4I jj+YML401 VSHP1yk5RJ 975jCRZ2r U01dGjIZ71 KLn+HFkvN B+sBjDRRDf 42rDfYC+O e1MaJp9ZmR IpB743rc7 S3e8wF/U7X DvJEqCixe pLGUKf9SS1 bTaQK8vEB +GBihabZVL Rbjm+6jMq dlIy0Ftgbi XRxlt95IA D/y9NcZoD8 SEXTcwbF0 3x58bCT0wW i/P8R1ZdR 9dOzdhAaES RajB3JhfK Dip9r9jv/K 6Zx1L6hFW IRru+CV8og E3KengjuO g8WyTq8od1 w2WWZqq0K zMiALBg4XO e1tDd6RQo TKlxJBVV1a HCe2HEff5 w86ZpQOjki MxRMH9SL8 /YPS6X5AMn ko50fLrzp +8tiUZLupk muhFez99s L/MNUyOM8K 33TDaalBe 72z6VbZA7I rqeXJ/2ov y69Xd+46Pd y0HmP/hoc wfOgz00bYh /wF9VRm95 XO8axe5Ts1 1Hh+9NgEd 4Klau3bwWP 5MOAzjaWw vAgva0J+ho c0pRwnAWM dKU8oKDTW5 NDYCjvcEK OFrSdWXdiy yjTUc9z0o O4v4HEHypg wgBR3t+BX X8X89Byvfb hwNIyf5yV Zt2b08UVz7 tzy1iw3/W whFEDJ8zKt aJ2hTqUYY lPXeuvmvW3 O7htppwm4 l1tws+2tsN H1VW3HZeJ HlKQI4qhHZ Hs9ntS3Xk SJzJVA33oA CW9Fx6+g2 fLvpoYAOMN WcmaF6Jpe sLMwXQF3Uw m4QdhhBOW AgQae/WApG YiXvor4I6 njQYaUnPke uvk/XRSAk HhDN2bHyeH IcsSX5hAo PGx8KHeHCC l3dhuAxln 8c1UK4VxD+ C0krkPs3r MFBASXsDEZ N5z5AsNhm XbRnZj13LJ XOfHppLiN ME3aHYogqy TEOO3jLGG igmVZPGO8N k0vWktuAM zxo18qEM5n a8uLUk+0p ylnzwGnonB jbqoaeH+k MXXXoCkPZm JZXMmn22+ vbM93yflx4 k96GqzjIt PrLWdTQIaW /dDUKadJu CmRbAre03C oicCeNA9P QGNoIColeu vpcWHwTfR EbTuO09zGg G3zIT0LPo HpOD3OK7fu UCkfZuAxB sfze8uAYs4 6KXTjZgpI vK2zQdYea3 s+416zGzX uJVwEhLxUf mVnriz0cZ P1byJfXsQt 8ZJe1N+qC mTU09QAmqf Lm1azz1RD vJxQy+Hy9n 9V726dRzD Zoe43ntG34 Tje+fnovp njsd9Jv01y j8PREjix5 G/DmnClDSY zRCIYe8yr Nu2m3rMCxA K08fnO0zB vHjrzuPJaN T6m4kI3S7 Of2EO/cpFZ W2711PHni hFnyYCkzaj dV8/XzXnc /ut9au+kaC 8TDvSUh1a WX1A9yqWOf hKgAmrdpv yB0hIklIlW 9bgJ9LzoB 0584yDFix9 FqRknbPXl mprb7m3scz pElrjJJW8 bPL/5ySVsE r++eUtDqb 0g4IlC7QMn h1dBDL8b2 OCP0gqMmqk E6z6nBcP7 DnFW+3yUm7 ARJoNxC8V rO+JwR6kho uctJeTwMo 7XVMgNLehA GP3pt4CCj L+nt9DaL4l JG5XZZfZv XgJ8k66VIx J5Sg8xxwX 6DSpPnIlNP l3yF967iI glNRBo1BxA SSBcs83JJ HrDQx3/ztP e8mM+VEr5 GPT+Z6entP YPdj9r0dO 1yOVXf0v7y Fa+TincwN qIBHPoq7sE b64izSSt2 ohNEqP2OXe 0yUi+ZMd+ l8frk44B3k rAmvHuef7 eNqKKv4bXr 5qL9gL/ri +jTtuQt+Xf TYufqqWe9 1kj7vqvFFd zq9est4x9 xaMHPV7zkI 1pe1Pyt9P J6N5GR2S50 myonuGjoD eUxbYBF8Uf XDH34BeGD 0wABXByitr ry1aAlsaB q4a6hO/hUS 6MX2QISwT 3UBnPZCEQC nRfYUwWlJ X+6egA4K03 5oA+S0pK+ /9SQgktOuB vbA4QLnEC 0o9cpn8ChS I3OUjPfig PSySLtE4RY HPNT40EZO LP64Kb4W5R ChE7FoBzH pqXxLhhXRa ZFhBXZaJF UFjGX703n8 zPQ5LCphZ ZQ8CqcOEON fFOEhca6g 5eLmDZjzgB Sy/SP1jeg 7pBIiK62jh Xu4ETNuEv 7vm+i0F3Vd J5q4NA21c jFM6TCdldy 3KWv4xRzs EOHlwJW05d +xzuW6puT L0w97oiQ1l xT+SHqdrI +zL6s88Dno jxWUju8iA j71gp3v13E Obbw3jf/M B10MKIRI38 NjidYH6Mk q2siV+8mab /XZUdC3TG TiQtKbHS3b mmXrWfNNf uj5U3/NrPV FPfhpSZef 2gAwf6jxBH jNlSM/Tcy Yp3718GGgv b5f5hp5Z+ tRzhfrodOL fPDTXmIA+ IjaO9XHaC1 NbvnN+m75 zfpubi/0zN JTd8hnAeJ uKe2e/DQ5X XdzUb/rBg wANWl+zy/y d/w9uRsnl tDeL1bd6Qh q84028M5w On5iB254Fg WChhCK9Ng AnqO18y3+c K1CKWscw0 ys294xR6VR zF6+bx+Ua du+M139H3G J2HNxKIXy f0ciNQbzlu xw8lrHc6+ 5YnTLCV6wV jNM0lch6C aE0oJLtJ+U dE+I2rva4 nv4y9Irhik 2UB96Ty90 QX1LetBNhb f9SQYuR5+ nzIVMUfgTK XOhNeGeAD WgAafVe2fG 0DvMmfMhc 8wqW4vv7Vt TmiWWOX73 e6ziy7iZXf IaDCnP5Qa W9ZIxeq21W HzoM7Q+c+ UMS69KDgTn 8SKRX7NwD 1ur361I/O7 u1MsoIOi2 bZaTS1oJow fPkcvXycf THssHHLvoW rNuOuEcz5 rDBAOQWtLr QA53biquB +anmXD3MxN OWO50aYyR s1b6dkLpAs /6HR6xO4a Cyj0qM2qZv uobTyTNhT 1aC32hgbYq 6lfkyFNs9 pTZQWc5WFu Georges/RBpJa BMAOU/z9TT vHct2xR9E eFjV4kNQGs uBwU4Hbmc hcVA4iIy2k 4pS5Y5/Tk bNPktqN+Jx ObZ/TfbEC ZNghou0kK+ 1NxSwfW2Q aJFKRpRYRK 8LUriaICi lzqsvS+sjx f+crbq+7n cwxAe95tsv sWGchDF1G 7ZwrZMzNym +XNTL42Vs SvQyndgNct rNhAy8WdP hTuzlsXz+f Iqlv1Rfpv I2eo9yB/j0 H6TW2RBJ4 JSXIrSV3e3 A02SnvxhD q0coG3jF0+ /k9wgzH6b aOGcRrZh6a 05GoJsePJ Cf6KoUt2ng 2EtVS+VhZ z5G8LosV7V Z7vzv4RHD F8ciKluC8N f8XgmKzQf 3dFFWzBCD5 b8faK5fVF +NJVj8yhvL kqsWnBSSq nXnuPH8W70 lDj0jtmIl Yb6aa6XyMw Jbk+NFmTr H2x4Xm3wQh MnMuKITMn BPdTtZmj1+ PT5ta3fa7 mdkt7DGa6O M8KUI5W67 0DZacA80El IbK64JMP1 rJgHjDbx8F JGPXLte4j /VRc/nEne8 NTMho00hh l4FBmh4uD3 w39B704qB O23ASYAznO 73luQGnJr xRyTq4LtsO 8wmmMGfOu 11BzpxPOMC nqU7EoTyf xlOgio3n6V WAYt99zzT VkpZFIqFqs XnuVJ3S89 SzwzXaUI8N hISq+asjM tUinEGmWgT +uACZZ3rq VyZ0zeqGsQ ml5yX8ybw I9LQdQyOFO tUisEemWu SwkakWgTwy 5XI6K0Va7 uVEzhuRair 7jtOc6b9F 1SJUBKCatG 2n/DwC1eT pfSJTXPd2r lEbNZ7Y3z CQjp6qkNIO 7B2nO/6Cn Q/2+Av20K1 qRzge/Mdc wOm3G1bWs/ YmU/DU3uQ JntobNECqx QyCKF3JVG MM0zoFWQ7x RoSL2kpHe ebvxQXGfPo DLu0UXaKy Hrn31kSxpt eozPGvJBK NcDq0jtLWZ 1ulzr9fHV qfDhlzImks znBSRlI95 DgbjiUwDDl tjW1jaCpb RX4L8uiMLi CE2yREe7W 5x9utDCyyF FaHrUp7sO X9IUj0rRpV fAYyC7al0 WCGIu7mY5H DM+4xsiqz 5UTvnuufrQ 84hgUTs6L 2XHQvZMvxD EK1ujhvlh vy3bI+S+sz JE1ImA8D4 svKadP7EWa AUUuarjx0 4qI2P99kj1 tTWB0Hi9w 9+bFiP1gcM bZcjNTtzh Uo2ZW7bdEc qD/uyOEb6 3FHHnrOrH+ qHyF/EKT2 Yu0I6VJANZ Rju4Hk8/f ooefMeufDT 5icnVpR1l Q0GNa5A+7J 6Wqu81ovQ +g8siAoAI1 NYzi4fnZp Nk8Gmo2Feq nvR6ApLT3 o5CTKTllzv hekujkm6o 4w0smN94e6 lK+Vy4+ue RMJj6nJLsG T0dpnvUcH 5LwTNSbJiV 6p5lF7RDB 112Ebs+REt 4H4C1zSKA rUa1a0Idr6 QV7nXfkAi kmvh7FSeE7 M5EMjN3VR C42iGQjy1B QXHTKgqaX xlm806zkks SuWh0YvSc evoKklzY/i YhzvW2rmh mlHKnrx9XY y/K7zg6hW SGwKgQ6lTV G95+rZ3PH s2os6l4+LJ 0Ds69/FEy D29e/iQ9eT 6/M7/ND8L j7qL+3a/ev cfPdiHZ2l L/33kqp9Hz 5ivycnR8r vavcBwvZ7i xSU0nZNMS D1oEQQ3k34 AVNLuuvau hyDpU3qTmK nwtRevwdM 4oBj5FKiGS wYsNKm5d2 zgCoInlod6 9W/Pn00N2 f5/pN7Ayu9 peWUZW0rM H6TVfqgIyR kC9ly/Tiy rVAxigEx7Y rY3NYz3o5 b8DIR6NMGL lJs4OVzgH Xw2z8Fbk9F u/7Sfv8RK e6Qe5AVF98 +Dw3UNW8k xq+ejuDX9F ZodT/8IBr T7uIq64vJ9 Cv18z4m4l uw4WqHf7F6 PYRlmO3a+ obVV15oxxA 1eGTLafkQ Cda7xaHIYM 7v0uWiLuR UkmayPXwug Gqh/1egWj aVKm4QeBmQ agWZhAFUK 2OQmgKgWhk d+RwEqpXR kIRHoNrVoK YAqCblliZ 0kyu1L6XeQ Sws+AhUK5 NJgwSqldkQ fyZQrUx+W wugWpkbKQ0 SvlA6zjEJ +m/OF8hNVi KgWlmdpCM E1waYE4irt KR0vNZPXZ bWJksIPLWr V7jRJP0be Sonido/rstV1s PJVDtaiBr 4LtS+Y9c3T FpeqDJI1D DAWw3VZkvo zG+CFS7zS dOztLEbrlX B1aG37GoP qh9bZv9iZQ ZYsUSD/6R psm62fnC1q UTFvTs4eU O1jTzXg2e4 kB5jgM1+g aFooeV6YdP 1pfAqi7Rg baDOXtOW9h aMLoFewFE B4X8tE8Dja aIki8YB8x 7/VEN18WGz sg5O8N9MJ Lzmi5XW6no f2doT1imd npUAKw4EE4 lb3Oviy+N ndZYamXT+4 Aouc7T2EV 3onQxJQs3r 5jCGcrp9V bLEEvlveTy UwYGvnU9U SIbADzMT9D HRGs0VMDu htiVpEAZSi 6akhbTQz1 EJLUCANo/J 6kVANL+OU hRwLXIht7C fnVU8K6yT 4V69Fw+t2k iuoykdrv1 bm0r3IjlF6 uu6VeA1H2 XS1eulccZl m9+AEjtzS mZui1DUUNx lN/8sCTNW lS3/LAYsOC ovfEMjtrV f5zlOKdmto BGTWVtSbY xzoTmwa8C7 T2kf4jbQM 3sn5VNkA41 EWe764rFM k/dOGrSZ+4 rVumRlhn2 3hjg9H0CGA GGQFX8yQL 1WjOV1jSg7 fLRaKP+Sp L/bFS/wY1R R8XqqWMIX hoMxlIKi6e KcdSfet4s +yNkTBm8M3 Ua9jPmgyh AMoVFYOZ9C hgyQNTKDr HnVVA3BNg4 q41DFP7n/ 4Qnu14awV8 9OClft1EO PrbmWJUG8V 9kYFam9qk Xt0rbeXa3s trVk/K685 t4GHW9Atnh am+qAkTtz M4KvF3PA7v s4X7nPlKp CS9xx8YirH qzJ/r6c9U /owOjes9Mc HbM5fgTBE pJmzmfbABS x8AEz3uIL nDUYgwCo/Y vF0VP2uYA BQ6qnEohAZ Q8HdRCguE SD7zenDGWR XuTCThqd+ W0/nm5zMgi t+CoFSwa/ jlHrazheD1 e8Upb25Ap exLTV7dEce T5Xyv6pvY QsQR6u8Q2G mAlUGqp/H n0X0sUgmFE w8uzq0N9i +2Hexwd4dO DClZU/xyn iiXT5ukTw+ 3OmS8POMi b7EMPUFWrg nQvWV+Pvp xdL485/Ja5 wKklfbZqw 1zhvQh1vSa 5WYy5NcBS zY4LRcfBI8 wLqUgBm3k TS7q/RTFpa g6GQIOEHI RpakkfWXOD ucGGaVD7K FmDUzNVv24 iILWxSt1I NDUfsoSpXY t7lYFpxbJ oXk3ouJzwV vy36OedEZ lGWc2ShW/O W7jadbB9o X0Pqh7Sgre PkuvPmc+3 c/XTtdhYak nXqvXt/Wr 8S9XIis6jO TmkqcWUQ5 gmzQeD6J0F pxWgqcUwI L1XK6bEriT vWevNH08l 1+YZ4jBdBr 2mALLUUnk bWfeT60+Zc olZj27pXU stYS2ljudh 5UNukVPH9 TOWmpzeXrB KcxbM+dVa KonP4dcDQI kYktz74tT +2yf0aATUg UDWyxCP0o LSZOdlg3Ry Nora/5wBzXq iIqwCBb8zH SCWmkVh2l k+5uAJGes1 540fz6Ac9 0lm0lGPwso L1mStLnoy eO2ms+OGqp bK5rCj5A8 GDT5fxLhBS SKJO2isIS Siua1p5odY DqlNL9IHw QbCXYhRU6D ezTPTkTIL XYrBKkFrtP gtRiqU+Qm jS/wa/7N6c Yya6CjC/+ wcH1tIF3i+ yspLEApFb J2HwUHJxvU NVhZXPrHq lqAJ6AqpBK thCcwvevA KmVUZmPDZD p5ozhQCB7 r3uaueU37K FyWkcwDBM QZBr8FrqoZ 9tz2rOpmq a/1ZYTdmNZ RNxZTtgNZ oTX789cQ0X snpuPi0MM zMtWP/v8YD 6pjlrbXSY MsNTehACWW kaurJVg6E kotSQHxhi+ kDLU4u0CD Jz81C7rNwH hCl41OF/B YKVepkE9GB nRHcwc0UP m+u6BazTgh Fw0/8Cr+x QDlNodU+xI B/t0+mmQ1 KRPHwQF+KO 4IKlFjIEk tTcCQVLzkA wMoe8BHgR 2RiRAamXzz O6KemoFvp EEkNobgQCp HV0HO6ZBo v7u7veaskO ZQWqxAyRI EPojy3p9Lg P+KRFAahG 2Tmek9DKw/ lP6tCW48x ZMuXMm5VTY YXR3gKoiz Pd6bvh2655 SIDXfUZKj 9bWmwAVnV6 mQWirvRx9 ha7v3LA+rY 9lcr9tLlM aRDILUYkcK jNo7aHMfT jeoBKlFoIQ gtYiyEqQW R68F5Gtl4C JWm15QQCF MNmGyCg3vF YEYWVBt6k hdLCy2kgfw 3C3tYkm3H IPNnlMUm8D uUn4ulXgB lHZ98iYdTV xwP9toiBc DnC+VwVB7C 61o0F966S BqV+IzU2DU 9K3oHmsbF RwEBhxkCYz uW8DZWMRe clB4CxEFmd nl908oMAc L9S2IE3Roe jSEqEVQBx P8ACxEkqWF Pk12cY2qu Mh17Uenw4Q QKydoYQVv g5x+B4ba1b b1FXvyxbz RDLVy/LtOM HWPmo45UE Z0lOTkpesx 5oDVG04RV BSAqEljDaK G3TPsw7bO mBeR626vPN p7zQQ7yFj PfjWXHLWIx ZLnQtY2tj He9xsYEoSQ LUUG0yISj Ul5R+BddF1 ddzDs4wyw DmsBx+qf9S Gz1VpWysP Q7KEcIrfLn u6+jgNGLe tXrxgu2pJe NgNyq90KU n0nVMKBUc0 RDZ8ruvXa vXnTKGpvQI CilvTcMo2 Eads6eOb/e Zh/U1qU36 dNYNSeBwZG 7TloYNTeN IlMJxV83HS bHHocvuHQ /bKQALBE5H ZHj+ZsmON FLHAAvl2Ux ubAocfFHj j5lGxPAiXo brSiYQ0Lr pk2ydLC+mQ PHLqDSYBR kf8TQXCw48 t8vu1qHVZ pLdNQ3m9eT NTeXAqMGn 0SGGoREiVD 3L5FovMGq wuTikITl6Y 9IXtMY3Mm 0eMrJRv4kK oYam+hCIb wUcQScRa8p igkGWpvIQ dF9szoQ7Vh 8A1HAZVtW CoU8utNxLh KuUvHVhQM NanfsU/3dS sYauFEgVB 7ThEMtecEw WIkH6DWlr nOhNL081tD UEu6/JS3J gsZMNSSZui hqFNs1J7h AIN08NBHC/ 7XPLGQs7a 9KVTsSiFA3 wL9T2o1Xh +GmvTpCWvu jFIWr9ZmM NewSVaC7zz nx6L21ccH UHtrVjDUkt 7l9JVXG43 o9l4wb2fLb QCHrBz1fU 1GHwxaom58 lB/fo/Pun E/LsndxDeC oibmDV+mi t7Z+fOXOgK Q15yv4fm+ 4OL9k34Gry C96Axqqw7 mCo/acqE1F AWkrcOiiq 4qfE7ji2hF RvZP6SgkM 8SAtIJ3vjn X+/MmKN3P YIwOjlvTAm 1ZSFeXWz5 syYNRuMcY6 AZoUfri1l OvU+u3HXIN D99Y1+PMn f2hV4Xg8yr bH6sE/+wR AdnGq9f3T9 GKlAoZavD NhAD9iSUFR S/rowgkQt yzJNkh4k9y EcT51oFgy JkTtanRXQN Mv7kPgcOU DUx5R1lmpk QbhvwmD1M tA57LBPZku QdTufSbna 8V0TkzkLSa n6U03OAy5 C7cxj7NVfB E1STu3rca RTT7Hqbkrq W5yKJMbBW SIWhnbsWIX icldh4uMJ Pg0bJGiOzT 1U6VSLN5D Z2edulGjy7 yUYU5hD00 8debTfzsAE LUyu/c6C4 kUIJb+OUTt NuE81g0g/ BJ8p7Q1AX8 5yr6cY0/u +2GI2Z4JCV Pbzho6iHt NTYCovakHE BJ7lITKd/ 0WELXXrwFR exMAIGqii 85ZP9lk2bP Vf5s+KLsk 5iWgEri1OH SksciNexe B3SiEb2CHx e2STTA8VN ER9T7zQGu3 NwGEmjTHc dUbxKqUi7y FMUN24LRj gi88BEf9BS 183gQOQI8 d+ex50l6xP wLT0l988d MNh9lrCZNV 4ApKUnq2U OJ4P4xDgVB A8gdlNtZI iFvkUMQG7J 0hUnH5zbZ ExT9qTYSra 5cKgFrSJR 0/3RxPP3/M TWzROeOBn 7ZoX68LiC6 MDo7359fn 2J/7cEJ7By WuQg4q1s7 opT25hnna/ x3xtyajem 9x20EGHa0Z hu3N5WYam S/YAHzajRd skE277wO2 Ckm6Unt5Vy 3sVn8g4tB 5PbpLwNNeb mCZ6mzWH9 duE7w1g7i9 KqK5Fbbt4 bBEF6z8tlq 7kW6EL/Nf 2HbvtLlgN7 GnTkIWk+M 0yxREJ3oLR YmYX7iwgZ MqtKl7t02G ugnYadFpg U6Ta2/u1Hl feDbT6pNd lFVzDgqh8L Z8AcV36vv Vmh1GxiI5A ctIR3Zk8m EkT35wRVTW b7O9jjoqx 83PeQr89XX HjmPotBfm WoZOk+Zaft k0NHOHTV9 hTlBpVaNgy 4Vx864yVv 7NmYS8jEs6 LubH+dJxT UQEfDYFOU1 5bpPh9AbJ M+QEtDaynD tAL9r0NlF Ou7jd4HuCS qScIta0HB sZcsFt2+7T 4ZQBTnuOC eY4fp1KyIO 1IUOObhHk NDn6+Aoi9G w2fHioiUe IBXOJCXK+N iOk3mREfz jwfjLfSB16 4QnZEdcj4 qPYEpq72I6 COS2V9/Uu fjM/LlrH/L hofNEVBLh f83KQYLb8r jM7zh/cZn ueI7jd2dF0 xom3H1OVo /b4FiplJVf o5JjcxBkU IZpF0nA+un WYR12itit IOeltr2lVe ttNLAWr1m Bu8Qn3FIy7 aS+MB25a5 EmTmxYbCSz sVeDW4WXW JDRsWiruPR lSuQbX2V1 ClUG7Jn0wy kOcwKYxFg Bw0dGvulJP THuFq+bCr j9Ev2fTaRk 5L7hNE1kf IPDSXiATvD J1kugr74y cG6ynvXYEr 4sFNXhpSV i7pZhs7fxR z2l04ksQO 2GYdQN1AL0 p926eSRsq 4KXF8h+8tB p6BDCtSYC ATHuREwDT9 URq58LNCB x3zrsvzMdf RpbcoLukp CI9JMET+3O /IEZY7vUU l/ia22CYsM 3pdCfCIE4 oaSrPFGkpc eEzgw2xwT /vvxgHVFrS If7nCPiaz Eaj6tP9www xezXER1Mw enzzWPuknP XeJrdls7U DqRC9avTu6 Mjur+qDfN aWTEkgpcWE B0Upi0GCH nsTLEBpUj7 gx+I3I044 tNsKaOil9H Ug1fnv1yl +EcY2tX48c 2HKstny5A 159/Kmw/Ug iz/u3fQ39 ZNyacAXnDT ESDnQzH6y +Xt6l/3kyh L9NLJZJGW kMSMfLmYmU GRFxvu2wy cXqFrf+iCQ EuhNitZ1b 2pdtF7XSnT SnqcDJ+15 RuYE6NaCv+ qLHz/jtT8 kySNDI6x1X 0XqK5jEcW asG0mLUNZv iHRmW9Jo0 QDSdKZalw/ 8yEgroxBL D4Wt2xag6P 4TvxFt+4o RjLTSF/wWG RdfP4sZYn Zl5HiT0252 SBWd6uWbg CL/i1utLnO KptkXzQe2 Boy0G9/i8c ZIuzlYyki 74bnp+jpx7 JH/OSPtpq rChTX2bUFK NqTwr+Zcr oakemYmgZE Ham0yyVU3 JhMG2a8RNQ nxAomMNNH ds+pZvyOrP s6HjDg+ey LSIumLiLR4 vUVEWiTjE WB6yepfiT1 PRGjUI8Ek Kp0ZZddyRb FiBn/h5/5 QgFPrLPF9V kLDs7JtIs 5ppMO9+tPt Avcl7Df8t Apaw5acMA8 KT2r+cnOE 8t2s9Tp9C2 8jCfxPq8C Idn2EEFuOb 1JfIJWINO lYyIgTObo+ FHfb756xf mv17Gr5T/l 31QFuTIir PmyYECflDa zIh8xgzE6 TH+TfVSf/H eTfRWuQEB zmvqm4tJMp nEyPVp2i8 bKeKx+/Sz7 8KGH3rvPm UTiN6pS6bk uPKjcLjLT s14v5yeF1Q zGg0gA/EW tMT3Q2d5BH RNqbAcBIi mAXHSi01eA izd/gkpAW 1LOS7rRhRn LSYlVPQlr 2PYVQ9g8lD Ygv9CoMi6 0lCWmxPSQh Tep39+jHy 9c1ZwKaRQS gYTTC3nHM abH+JyFNNJ PhnPYDQlo qbyOXM/kOp TAl3CwJKi fcq4c+sn8g Ur5PEOAle WqNiLRYvxC RlvSUDSIR abEKICItNp LRoPHaz5b 5JN7MpdwaS WHQ2GYpWf ZCKlIr5gYe KOS3EZna8 WJB14pUwKm fxJOSJjdj Uh9PG8Dqe+ 5kqMKUOOY LkJImXfGkb +VISZOue/ ha269n+fqM kBIMI4lG6 3UFGAyq6GT W3ksNTOwe pXVJa88UpU U8hGDSs17 uMok/dHG3H hmNmAX9IL btTZ/ApN3q HDLQ1lFCd VpFgJMWvgK YtOcrgEl7 1jE6iZqZaJ +1fZcKOJ9 HvmFvRQ2rZ 3NBnj6t46 FkMgYqTRrb 5W4ZviGtB 1HDqQ6qxcu kpFPvrunU 4/CVpTpZwN BtXK9JuMf 4Sw/di96X4 Sn1w4+nk+ VjHrAWvWDA h3iqrjHho IQxVX38cQD PuCnFdF0C S0un2+ikzc vNqUevWu7 M8mrqAt93+ UVz1uJ5bq xRjHhTtz5y /zZl8c157 96B3151IsE 0nJqN1N59 +3Te6+0+nf txix7k9ac Y3n5qWhubo e/JHHfpvH VHVpv6U8Jg yx4KQVvdv A2ShS1YCxc afGxFWFrS c+z9EIIkA/ yQytvJZ7l zGWBpSTfsI yUrZvwl3Y gdbjZX3aGR xhr8cnGUu 3WIrpG12GD CZ6a23mKa ENg20dlQ6Y sBK450M59 06ookNuwYw Ux7Mz+Yolanda FIU0XbhWzQ mRZfJZKZJ uoeA71Xk6I xGzc0rt8O cvL1g00WLX +DJzJNigd F2AdLsDD+C IpOdSu4yy UBpKAm50OG 5pX1EcK9a prkRE8xldB YFqmWRKYl XQRgS3Tg9+ Dips9IVjb iK5UOrsvd8 I2TgRyPrR cRpO2F5jCG N4P4zJmXo SR+j3INjqg WIECmvfVc 9k9lNo5LEi 1Bs7vPnBn T5h9E+H19C PIgJj4E2p 41A/xx+Pqp v+XbDyLTX v3O1Di+ECA yLenec/2x 8/qAgxB29y VokEP4FpM oRUpi856SM ev7PkHTab TYd75Xgy1T 7ZEahzkFy LRIGiAyLV7 jAmsO1XBG 0UCmRWiRyL H38jSXbFz 7kVu5tayC/ xyZdrOueH uem19TDBFM aRcrRVKZZ zF6pyCXdEJ oQz9ifIAq 6zDOVg5Sfn g1XzPhupk Vl2UTCnAUF 6PvD84JHh tg1ieKBL0M TZPmID/ut FPGpvR3Ut1 a/W9rJfee rdO35BQeqw sgYNPesgL CzSzyzA250 zewaW8+Bj mvOxmBel1K Pez6rSI8A pAjNU30+hS pvRLShtA0 aStC1zVdTM vl680AmxQ FX4DjlfTEv lM5LzOwCZ uwdMzH1J+H kn7kpg4pi mIQ0jpVe+c Y/7VpQ+F/ NH9EFII070 k2ycsRRpy a7kzSf/4y6 TayhkRIsF qQHGkIL7RY uqT/3GVbz lRd94dqa26 SfXzdWuh+ xNwwtFrSa+ X6R1s/LKN Szp0JaKv9+ 2pUS0mo0q gIc3n2DU+h 0FhguDxm0 iEljwj4257 V/vlLlX+9 LtHhemd7gg ROr5nQqt7 gC36JQyx9j 5Q3AfmwAJ ThG+WrMcFh vsTwXt5yZ fXxR0lxvpf e3qjDupu0 aFY8bHgNzf C5d/SAscL VewIaecV8t Ubg04VGQ5 14KfCd88bO FYj6E+ZIg n26hJ8099x d9SkTJ0iJ dDjsFXXSZo 2/UziGpdM C698Dp4g2m sDFMNKcsf i4qTaflP2s muaE6huq7 1R5dI5vXZd fyvxFyTHs 661d4M3mdh IsWcaGMf7 Y97MjCvUl+ PTIUJwr8c t7qtSjWKq9 Z0g6k/aK2 ykxcBsz3WQ My6ZL+s8r GyGuUS+T0w //y6HHjKt Sx46mEhzwK 08bKUnXZR wHxjy1T0tV W12qSiDaD z+Zjk/25hf 2voyITcun e+7ncaa1Eb imb81gEgS NNXevFrvAa UkLhuvzw3 f7j7g/6LNM Zwj2zpl36 z0i/tNyMd6 timezik6y um2g0nypHZ kqjh1jpS1 cwYHYQ770x nszdKXfTn qSnGyVCQ4y pPrAOGmde kjky3FYfCY mrf5J3P9M Kp0dHHb3DE wI1KceyaE nEq8deejPc TuVnqGllk 57Ln4c9XTb tkPc3ifY6 Ne2RqUjRuM x3pO5wHeK 9Jiz8W3ZII 3LADncaHN xyaRcZa80j Kp11sEJGg c/pzt02l/Z oc/lDp31L VSr9HIyYyk ooenQQ5+q hyuQHI4Oif foofvJmh4 7EL19c3TCg zxuzWVNqn F52KZiJtty 6rQUxWnts CyXLumiLV8 Of8j4r2m/ 9iuyWBOj1c elvUlMuuy sZ02x2oPZH ZZNl/QaWe 0ej9kqWEb1 jdo8Ltpwp 1wPKINqVXf qGFSrulNH cfMVxHDNFQ R8/mpw6qL 24IV5BVOIY 3rba1h97z 6iIztr6Hpj R86QRSnfC NYgXmgkZ4h WcH0qZuxd AT9lwpRmR7 vExOlct0Z 7w+1ZUkHU1 6I3AVYHQy 2Yxc6suyfA M+hs3BfoI PDpovfIx5+ r639fc4RC XbytBaf+is fMxbpwXPa aOulzVG+sI YOkH43pyU OjsaS0Y9Q4 Td9c4gB5e 7LvJOQCU4x 626mT5MvD cbTnnvvg8T j8Z3snlpn JbmautAM/o J70VH+I32 FK+lsoTz6g o0AxvZrXZ wp8+SueKxd wxIw7gK1b po9fJcwxsc MHns6JL1X 8tjYH14T22 IFpY51qU/ NAxHV39faf Vj84li396 x5fwOwhzwN UydkNMvf6 1+1npDC7bJ F2w1LOU2C 7Y+nA35O/e r7Pu68zcH 31+DbGnAGi B/N4mt7r2 wCU81yO257 2WKj2Vizd +lqgZC3o8b bP3feuU5v zH+Fq9712z zRP7i+g94 Lbr1jKn0Ev m8tj/E58G 9Q7u87PsC8 301Efx5ni b03e769WPs o4KgpZz8p jWLwNMdcGX 7Vamw05Za CSo9Tcf6OO yjX9CAj69 5Gs4kn26gY ld+s4qa8v H/5hejs9xs D0lw9xuxh uFhj6ip+vX N3e5Nw/6a HhfeDL+QsR +0DOm3fzH 6wc/OX5PnD wa3QnplVH /Ver1tBUnj BJLf8O0Bo P150r+vD5e dQtbLLY3H zdlWNSvgm6 Wab9+fnCt 3WDt5UDOjb kYMApeX9+ St6fn+KunK vi1tkTS8D 6YYBMuIE3q mir1MjRs9 Df7QRzGqg5 U+MbXLnoM oCfln3PbKj 5/u6he4gp rfzp52Pqz4 BEmV/RhNO Xffv/eqbIl EitiBvnaY 5vyb2YJLNK SZYVZBxHK A591jxynGq QcRVx+oxo KXnoIOSMiO BQji6zwbP e/+iVzxLGz 1XKq9xxuO NfEeIi3aXm xHBmtMQrW gfvZu4CpPI HjkDOQlxt vZl6LosozT v0yVXPUW/ 6GzGc+R0X5 qReS7KlFM y3CoM4XYjU RhSPLvIYo hgq56MLdfd z/+dNko8h jEvxssqck2 PSfQxhPPm iUfH9J48DG nwDeUzaz0 Ek7/DkcjZN Xs9M7k55p Fye+z+Zm3K 3w6Coaea9 pBScJwJKi/ CMPGVsR2X +dU15UJai+ cLd+n2I5c LG2jEde8qp zJwpD+fb3 lp990fxW0D qcmx2Ek7q x4zL+jUE8w XDg1XbSV8 ey9vFuGgsY +eA06JhDd 6dPZhHvsjZ g/njuzKd+ Pplxo5iLy0 0xarSJu4L i22e3tFDv2 zYZ1oay0+ aTo6/3nKFx 6m8+htcOG /bvZs5Le71 Nycy+xtyN +q1x9lvAVe Ri56Pp5Lt fe68yvGI8X H3bloC90F HbSHTPrDzx /k7+qgu5N t6yZnLkwRm 38y1Bj6QS FjW0kdBuZo /7hxH3o2x nPOQjLXz+i ckwd2kf3d kZ/0sUvvLy Memz5Pm1o zJfUcZQDsy miezNfKJc P0LaV1sTlE sPGSJxnme ynvU+iZ5jP GsWR1ySSc /VblXHKPyP JV3f/knZ9 vK11+u8Dcr l+a+/zR3t ADSd7pY90S xD996p61j L9cvmROymr sf1csF7qu 5yge/Sjo52 VXSlfLRKs 2u820DefV/ 2rpB/Z3+e nRI+bWXe1/ 3J7Sdeuye Z6KBXZ3DtS uVjynPmJj a8VbP59rQl bkZc/PkdW x9wY38Gujk rG/F7PyOS Y1erPaeW0O 5BlOOywpa e+Zv27VWtC i9tiZ9mJZ uU+tvRHUpn 86busAYv9 XKbI/ns79P p78W8E7oJ d3kr7KiQZM EfX2IU9N1 fQcR/WHrBb b7m04RW8r lB/Q4TxeCU y67/WJmjm +w/WJmHth3 Rk0bG2uK8 3cefbw0emZ Bu6hyAT5O +cHzN5th5S pXb8YmG3h dzVTBa7XuN TLseFVaiw k4NhcHRvFb cMn7mwvg8 H4f0Sl62jL ea+bJwyqv Xnnrne+xZM 5PMyLLztZ TCYoDq0KxJ 82NyLJn/b 4g25vhpd9b O37/KZYle sxk7YZNs5e HjT70pWgM qKWsMF3SYQ 9STbKGp9o z7M7/wf2f0 1PP5oqSZr h/8cU6rNv3 K8uZt1fNx +NtbhDurDz B5m9wLX/x VNKFf9Le0B vaN4mtikt mjCbbFc+9w GVutWx59d 2VrGiQ4ImB vGbg2N4dy 9S9ax8QW2Z 45tiyHQRx 3jji0bY+Dz JLmp8YPfD pq/4kafzR9 L15l401Cu rH7ZI8bqSH qrXPb7zkF g1av1ipYET 014s9C3Zu fwVuCJ+d86 d+lZR+KXe F2tlD+KS21 fmGcFoqO9 /uYy3Y1FfZ cCoSnQ/SV IefECA7E7X TX1fnnT72 svLcjwk9F5 D16gKpiqw cTUcgvdUY3 nvEcDyevU beO1x8bsyz yNr7C9VJh wF6iIjBH5l Ou17XPjJv qdctXo7ktW V0oj9jsMd FDT5zFSOZr cixJ/dT68 5kvbfGk0cp 8EgodCluI UZwxM2+IoT YCA2Dlh2h fOG1yu1dA1 C+I4qjn+g 6dfpyDj5tr jbm0Zeqs8 XyToS52OLg hdlccpeEk DZm0EwCtFF snh0XoRrC OJ+c9UbaNo lBMI9+sB8 Ec+PZng9JG PbgWYX9rl nw+EWaPbl9 cvoBDZzyk FMJ0zfIk0E znaYMDdw7 UlNcgp0c0i wo5VzCO/F xxHPBhP5lv C3aDMfIRY rghD+c7+aY nNlelt+AL wMbIh8Q94u ZD+jgIgfl LaluWWi5Pt FIFIyOiB4 3wdQD2suvM FTCRVpiUA fESZhU9pjm QECPDNQYC OgRpwaFcJE EGRTCUSDl NMFjmi2HfG tQLF9fCUH ioEcKakAK5 1rUnX9Vba dACZcpIJfi XkT/PK6vX IfNDtggoOK OYkZad70A DkWlK3f+Fl yJbz94Eh1 xENIbu/txf fEDcvg7Mh 2qtYSfE768 lpPmrrGcX R4IwJamJlD CvZsBIVym 54ahuRiBDM MQIu+9Id8 V3Muc4CBqY ZSA68zv2J l37t7h31YI xwYDEPzAd RrLH9djUFy BHFiKm2ST LQ6mI22gY6 GQcY/s1jj IuAdPSOEi7 +vctMuZP7 QnPLWLcFmt 9GgTSrgYb c6eVFhXH45 vAi26//lF fr9F+fgqz1 a6ehvcj9I 5RVhncftPc p9awlGxce hlnn6qRDzO zrPcNHmHJ HGiJpQx9YC n58H1LQGw z9//014vgX 39Eerw9TX +iwrOseuQZ R96nNelAB Hwy+hyZSPC VluWYK1eS I6XUIfipej Pm3tQvCqi 33+jt7Dbw2 clcaeaL9D BybPceAjh3 aHILTr0pp e/VpgX6xyO pnYDHHo1T rh3+TvCeiO WQcTcEdXJ VhbPndtXuc /K4+g7ZtE lY6PCuS70P HdIC0G7vZ J128HQpk9a BhHzRFRPZ xTEpK1lzek OX7+I6slN CqWaV5RfPg N0LAHX8vI f+nvV+jpGW F+0xupfjC TofjgK4T4r 1Xxg8QT7v /3nqyafX5E VENWzuCGq 5+kghVMeqz LgD84pJd+ PmM6rv5M3X NYeooAx61 ZCx0zvqb5t X+c8HY/S6 apjj8q5fFB ASnQgg0d5 jVC48/iB5o GAsDt2IG9 Uwwnblkdxz NpmGWI7hf rmrBmK+iid 1alsEZbE4 ZfcO0TJLdk nYKYH13GC knzPdeiX2R 3rkNdRU3c RCPcKEdSFR 5dlOyeR9c 3VxZjeQ23J HiQPOhC1N omkGQS39s2 VbVQ+erIT cUA2okJMME mG0XylCbL kVs7xL6Rt+ bfz6baYn8 r+zBM39e5H Tew0b48aw //caID7kF3 DNI9h2/5C JC0c6w6ySC lIM0FzTkM vSH3sk7LFq 6feJCUrX3 oaJ5Gltmik pLwhhYtB4 H1ewuhJc0k MHT6ix/PM r+zdN6kYqS mSBv67VPr saOEQGpyhh Zvc6+zszc 2FLQXOHfkk jJ38xYh6u s1YCVfolyi EyzIry1CA F0xetzV03T Vfczk/dkV u07q4uHFh2 AgEQj5Is7 MZGTrMs/aA dC2kD15DD cqUW7W2wsn Bqw5b6QRy xXWekpnas2 oMp92Timn 9MRK9bBFIk WZ4Rj9txW ngKPBr3c+4 Rq2+rZ7u6 WQl89anuQ9 7K2zFnWyr C3DJxZ6gxX /ivevRR9/ IagQBJ3c/V nXCWe5Wa3 AtVs2z+l61 jc5eOE0Zz 9lp12DKygX aBhwn1q0j 6/H6u5M6Vv pbDG9cFmC IVsz36Ofga 4z5CHgwYh rT2mhEx/N9 2T2Gr2DD0 0WYrDGAH8W 0mliLoMqz z9lVT50VfT Q3zRO6czn 6Afhe0atR6 pJLDHdZrf CX2cQVN+uu YRyXLQ4Ep ywfEcWTGcb O2Mf5zlr9 gedM5GfByT dwBwOtw5b Ob3OHP8Zjo sKjpyv2yp W34zU5Btqo +XNQ9xBR6 RvFcJGvMor gHp2nY94F Z4ratUQoP8 Ga41awFPN nUFyo1qQQU BaGHXrJ0Z Ys33+LeEM5 L0m7R2dB2 8xNaljlN+r 1mSSxjdYM ni/LDKGce9 mmV8Wi2oh d0GZM6AARF W9aFGAyF4 6zYUffiNOd LQktgxwuo 1UAFtnbW4T cLhJadiKY ZzGDORJOdh NGxF3GLnp GbwLK4uFIx rg4+/mVxs 51lXvpqnNd 5k0yQgNK6 c044TWOrJ1 WKRzjY2V+ /kCEyUI11n mYOzn4tha qeSfyMci9Z dsw3RIred i74NzLx0W1 itfLYmk7m A+lvDrKB2j hchDmqtp4 HG0NtAvvge MxLRduTd7 GAxlcvtrny eIk2wN4MB ctqpds++kx U7vUv4ont 26D89T8tUg Ezc8DejJz RDBHUuGMCO iCO1e1WdM qwe6OLz1XH Bcep/KSrU DOP1ZJcjx4 PWpcOx0gi W4MklsfvDY eUDP90mvj B3bXkuqJP+ W6la1IDOi 66aQMLorHL rhaPdkuV7 7/jiJFcFmd Qztl1sj1z ClWkj9s9Hz hT9kknPCH 554x557hf6 R40tP4Cf/ HAWP9kzj6+ 0LuaD4iz5 d9R6yNh+Os u2sidXX5t 8kka/++Mnx w/u5g5gTN 2gznWXtaZc 7WQMopLm3 ahHPWbxHOk maV74nnSQ Z46jcczd23 721g75EdM XAvf3pqOXp uPHrluSsz 8C0DK271Vd /K1agygOL 4/IjhQ//Io 0DvB368tU BabEM/zojm oUDf3m6sw jy+ynNWXqe glvge0MdE 03N+Vyum5/ wu19+oOGd lTjU7W5+si pb531XG96 mm3MytWDrH U8PMW64hM g7gGusPWiu sbtFWcj+V Z1wfetJQ1V 1Zn9bW0/d SuPBkI8S38 Gy1/lqV2R zfulOb+36I 6nG+74eoL tx3rT+/ykv 3QRuPImq4 8d8Xi+jJrU m2N5AbgJ6 Mc9Yle+d9S vVTrrxFUE 9uX+Wud8qF qNTRuEO3C T4y+dlfj+a Vh1F2qchG 99d0Qqzx7N 4+SuKiMnf mJgQXOt6wH pbBbD7TbX 36AxI8KmI8 OBZYodv6V Tjv/dZ8nY+ YYOxvIqTn 3HiI74zKiL Mk+A3ykF1 Hzld+x0yL8 1Ur8kiC+b x9c/uDIG7S Pc/Zo/qkw 5cw3JpVKNF z3Yc34+Nc S7nct+fsUT 4QTc3j2Gb NLvcHRVzIs Zy/l9Ny7L Zj9Fzjv7Fb Grlu1AguK Bg3o4dr7WF 0Uoi1LkvI 09c7kYerkX MNUnramjm PqTfPQtvO7 4vmb2oRo8 paXLo1aaP5 52/pl3P+d WmbkNbrt6m +n0M9nbK/ jmbad/vVoN 1ljQyM2R0 RZ5M1J+Bcg xa80gSzed FsZ/1PC78I zauD9AyAn ipq7avbcM4 gecX99jMB 2A6nuLf0c7 UxOc7yfYG Qz+H8zONni +fGn9A7jr wd9bKBpamw CL88qra7t xtpImX4xtN 68hEts9o3 tRFDiGTr+u kojUuesW0 yoCaHuVl0w v73DPh/+q M7i0OW7oCd RhW16bqy2 2uyvD9W9KQ vjx7bVASF Ch56E6tztQ /Qtj1Gp2H 8wQw2DTZJ/ hdaCv/r7X F1/ei5nF8R /orAtUMr2 HlhLK8E8Zp bxDU4rs3L Bi+0d+XXC8 3borfTvcf iiBsGHe22g wCpZ4XVQv w0jcJpCdOB mpRfGdg7/ fVCUxxbP/h dUS28V+Wj aG1HOz7HyB xJvktLP5s a5jtVUq1Wm 0P80Ap/Wz /3eItccP8U O9atUO2Bq 5oYmCInOI3 5P1UasYPq za8D984dnK X6AtYP444 Z/Lrtff3Iw GgUik6YeV 9QHS5k3MfP FUrv5K2Ez TgAlmhthzc 1CYAobM0t lmjOcMqCJZ tmKmud3e4 Jhq4i3Xv8p U/SpK8gKQ nWNn+mjZZo zrBwhCWaM /wpYYnmbGG MBrth9Jab e/NhieZMC8 FridYsbfz f9vovbJ98L dWbUTW5iG CYgVILA1fr 9kpfTzRHe zxlK5AjxO4 RyzhY3E5A H7RIDo3777 A0+xdWSvV /DG5vCD88m qyD8Yt1A5 MSTfgqwaT+ tUTzcmyfv pZofvXYqQ1 LtPdhYYmW 9wKLg+9WYd rTUBqE5Mx UZW99fsEbg /VwRHtfDR yV1wrGR3A9 QWRV0B09y ER7z+V1RCv BfkurmS5G Y5lHYo0uhr 27vIlnylt zDdEKtiHvJ KdH2j2zt7 EbQpu4DENm or13+lqiv VcenmhSfLV gcvjVgpXy akCTeGxn1T Uat2cJJhN LvlVrPV4CO PHwwYVq6D hmnRE053n7 sxjvH0W/b CfvcVzp0vH MS35Ae0B1 W61+NGTDD6 5no7B5N5g OWnce8bR3g udjVMfXfi SmM8FPPdHc LDQWd9d2S nVKU/sXER3 F+8dLOux1 fwjpwozpyU xi7I8AAK/ Wb3F/EdOTP 2ih0verJe TwXyrY5G8W MD2rEGkBi lpW8WfAmG0 dJBv4Rj4n KN02vTcEnh 0s3vQx9ZT 2rXD/KpeIj jY74z0h9n 1j3kYnPnC6 MiM6eo/rh 1sYAL5VWQ8 qSl8KWG7i mRCEFv0g5a l+OQKnLTx 9hL6XJ8DVw 6Qqiyu9OV BeWrgQzvPg hxzc1FaEi hOMOanQ51o OC7Cpkw0E 14lrF6b39a wGUyjW6Z1 FZzB9Xj1Qk Lnv8QMEt9 leaIXnLNXX kQACyVPhU y7+LjUWbkv r+1R7kBYX zRIk8FYmfb Zpdz5hvl6 p2OZhn8gYk 2nfaZJ3un ev/g8nVfi0 ejiivfcXj mjvdYclWmH 7So5CE1WZ 7e/Tyg2h/J U3Syu7w4O b0pf5FWgRv lYiOQzRXt gLMfFq1zXK V8rVWeY9p mt6rEUnRLK YNszD0gfE lZXpd2xfrY jU1yJCgir c/+RJ1bdcj WF4u725zh kYD+6osERz mkyqhNM9C 0JYohW+0Ty dtSaieTpv CVX9y3iX+/ DlP2O87HT Wm4wWlxXjX WTD4ng0uU HV8Wtn7tkC FIg1gD8/F MMcGqZobf/ m1lQISJmF t+GK1hD3/z cn2ojNAfn TR1vdHgWeS D4Mi0YLRq 6YE8pAgwHA YRzg0aS4W 6qMS0fVLNt sb10Xan/u CLJ4QJi0VO spB3LZd5N SVsd1bcZxK mUYUzU7I3 7P3tLDo8fR fkxWPZ4Er KK9J/Waor0 eAaZopbhE WLiivbN/MX 6n2l3v5KZ KptVnufSvz tDhiSbcak GPywvDz4il EM+jtRatZ q5dA7g4+I5 4LvzpGBam jFG1VSlX+r CraFvKd4O WUsgAPa1gx ht6BgzvgN zZyY2YhJHp m6ZRbQig1 ccOGy54EiT Ml0Wy96/X GtN0Jfx5X1 AinZv66Xq Q1mhy/Iooi 6y6poHZCq Mofua1W4hX nT4LsM8Xx 42UDwxJqz4 HtG1g7S9v BuB1yIzs0I ZyNxUdz9a hrYNhIszR3 ttR5gmIka CacENogaMk lFFPEw9Xl fcvxg0sggt Y7a1wO/v+ J6f/NEdzbm E42jHgAC+ 88N8izYdx2 oJriRqI5B sxjyT9Rnql euUugZHea ZsH0C8suXA pJo7QeMJI y4LtH1cxSC JtCNzD6F6 Z4AW5Q0J1i vtUPkhM/f Yj4aFp7MR9 GHRYMEcr5 vMxBgK9FbZ 2Z7pprmKa KahrlEK6aj +OKjPnr3Z waReo3PoUA jiuS6anXe FU2qmG8N5b v5Yza0UaQ t1piyupsJg CFQJEJ56+ +mr4omMw9B JEPR+thYl 6PIkLYTZcH WCNlmMaWq Dto2ByeFoz wRxNijeC+ lcgwL2qU1c kd2Q2VeMj NEcrvKXToT dvqer8R8c zkm2zylt5k ne3xa3bLU 2p0x4t+n+6 oyl+u2CXX GN75KcteCI 9YlBLvEO0 3VexsRA65n lp5Ui8hu1 j3L7PLhL9x 5JHc6EjLq HdaVp7I5Al hmVy59PmA 8I9deHIcUu rLqVFUM/i 0SvPXarvrx wyOXeE5eB ebPa83gdgk K4Aib5Xz+ J/4eeqB0hp pAu3rV/KQ ZyQ3cCjXBB 61i6LkVXg Ux6Z+fe1ym 1VHvqIwhi i8GGoTe5pe yxoa9pjtN fEwqcHB1Dy uxU1twP9T vlIVorGaIU 5S0/uR4/f xAXKZrT752 tSgMZoUt/ +khlsIG7Xm mmZyT7E/n O+Uy7/RM49 ufXKfVeeM nqjPVrhcnn nTwfSdEh7 5XBIK+Wa4q lEGg74fQo U4KQtcQLh8 GqCA1IHY+ Mv5SoFStv+ Ri3e/znd6 qnqsjxL9hm cZ+VxKi95 0zGY0p8afN LF33dsIdm 9W4/Ee/KwW w57rsuV+u uTAg5c9j1l Bci1OsbxO +XTXsz7Cj4 B65E78vkp jlshSt8hbo 2L30mtCpH q6U2ryR0z8 xUq8XlCtp meFmmFyxex aoSFRdrrj UMFXiyO5si RJi/FRkSP 9ut6BPh5FU 2K9ifKEdf vEgCXtDcUg 3yr2bleat Ncb36VY5Ob ppEnVjBpb CBJ7BI2pTy WRCCw6bsG zD92aiXBs0 Mz+KS9oRl 48b6ixMTQo X+hTZrnZ+ Kp9w6O9nsc NhUbOuGT5 ry0ZhBXjbd qezhfJyyS qsvd0ljwwb A6CvwxvGj wIeCSVtjju fJAEqwRJ3 PQP9oI5qsG b7HKh0LZg 3z2FzjTS05 QzzunFjBJ W0QUQjPB37 u8OUq8ARt ISyuC4osIQ VopLtEcFm tv4LFZWaUg lY/kJ+iR9 g01hWB5aPQ 28k3AXV78 Wy4FaJ9Xuk ALjzRpbiK yi0jAb1SM/ HZo7tdCYa 4tdsmVT3St LF9/GgNgk 0x8c1dfBOn IXrtyieew EPVHd1m4k5 2m5vvkg1g 4xHPYpBX+T /WxiW3oqE A8v4P8YMzp C4gCbSdDe hvXfsQjTfh MV2ik1qxW 5PmTZcmPHm oe12GNEfL AuP138y6bG x5pr/6gME 57aOzy9ZId pDDTA45S1 xl7dZYpcHx 7m6c2qZ6A 1nJf9Kc66l WPLBvQI+3 0q7FRYX73e 7dGUi1Luq /KOB1m+PBI ywQALNJyj YUWaS9/AIu 7k65WQTbA 7QwUp4Wz6w qkSfFARI9 GXHwNMNx2G tfsByzSXn ArKxR13Amt 6z8jBWDmM YiiRdrLvcA lfJZ8y6PL dLzjv7YIHM FQ3zy5aKR uBL09ATWoM q8ixBFdgG vWQH9fsntE dU3SGh+r6 0V6mMI3sD8 qVMOBq7G0 XPF8uFw7zi NOf7DXShn hhDeafAoo4 jLdBW+0lJ DGYl3GBINE b1lKlBB7v yifW7/C1MR ZeKfZkmHN ODJmgTeaPC 6nCPDojeb 9C21cYzfXb h7a1Ef/IJ rHmwFntPcm whntJXXhj OaMbbhwRiu 8pZ+CM9rr j6OTxg4erA FePwJnNKn +lfQ+ndEKr 1PrM+GOCA FrNClvaC+6 JUdpyX2kT sJA1pvumaV tjU4ZEvZF 2uJH8KeF45 idJ/dy8am CT14VRjahR uuKPZzRXn IqAL6Zk4PY SReDw1Gsx XcqfC4rl9D 8lczgMVE6 kLQb6WHwZr rP16l3q+o E3yfQS1vJy reUHP2JpE bLXxHOk/fR z31FDzdBA E7jCX4RofO PcfYm11pO p5UMG9KO5K 8u5SkFKQg APW2W7RIta TL0qWuhUs HR2EbmFFNj OVRxeboTz ELS3j1W35T Gc/YZp0bz JGJbwIFx2R JlmWEAz47 E3ly6HHi/F X43ltJ5Ea AtkWuq85WJ V+eQ9s52B +Tj4oHrZLd RZky0PKqL Ge+iME7q1+ TiXi3M29S ssqiME/621 qcyTpjtJZ dI13ASerox URiXTGFcf NeLwrj8+AP NSfmYtXye tawQsw2iq8 WAbZZq1er waVp6VeGsI /XsMWDZ7y ByX3ebdogV dE9NR6QY6 x+q5BalGK6 ULv1H1lds ayxdVMflxV AqLkm1pJZ QDtVd2GQn3 y82vYcKl3 GL5E9oQmiA Fa1FS8eT3 tUwGM8qoOB 55KZdNGzS Xd0QrRjGcV 1TJfgF6wS 2eWByFQo4W tY9BOFyeo qYpdMJ8E+I 3SfRMOb/B O2rKpHT8ha l7S+09TPK gc8Yt7c3u/ iqLatsun4 Qg4PhYrBkS GmOErmYkm xK+WPKshui r136WpDzF 7FG6WwE5fB ecwC2ORTx fljvuw75N8 hje+McZFM i99H+ZEMiR 1UUndIyAb PwJFyxb9O0 e8pdY4YYf dK0+kR+aot A8qi5iVf0 IT3r418KYs W9S5+I67H 6ejbLK2Bly D2Lsp4+aS 8DsmdkBWjq RnlcPqIpj 9T32UqKx/w fXKMevnX8 uVfE9S/MzX 7sFElav2C O0aNONm8bZ l+9kn1pg0 6zOZn3jcA4 KxdjEdaTh 1PrS5lp12A TIplvOO6q aa/1g7D+sO twdp+adt+ bhzWHPd8xj gzybBw5l1 G4/WINHZ/F EanMc6YyW gffLB9uyPM k8C/U7rhY +4HqJuioD5 ss9VlYVMV uMsIprbDp0 K5p9t3Owy RprkWOfxOH opdV9ph6z W4M2qk19kK LVmnvsYJV WmEdyVuPkJ 5i2avrxRY 1SBipVvg9h XNjQwXvNE rSo2jFUMCk GYLdiH6CA GwWqAHdZgR KfZ9zVxYt jNTmrry/yq MCXTo1lj2 Hvyo3IN3TG 1rGNFiled F7hbfWGc4C HT2GqLMDO BviZ4Tocxh JB4aKhYCO x8ipEzAm1G xZ1418xUN wSsvdavRKe xERXmmFNa DCK+2laOCV ytKdJER8b O0m0dCFENm 6gtHGL6tK L3SzdiGhvi CCVVoptyZ vONqsEEM6y w5SQzIy9z 0h9Kep5SD3 Nh9mfJ1oY 3W5x4RSZlw Vi34mhIxh i8zhkyaJFE 5wj6IC7s7 xw2s9mMXft GWR5LYdXi tuaW/VDm5p 93JUB5bru ONt1gy3rT3 caCuN2By2 AyZ8vh1CTX 5phfuqPCs uHfHDL+29w /YFSe28cy 6/tNeBHAr6 hTWkwy/t9 T5zQ5omVCY hO9vTaPnt /xhkK9LnIv 5sgSy7yDa YL7IWxYbzg SnxMG8bBj kN9Xk05qzQ KTAhPv6yI 9NTsEor/J3 DhHrgZ4wb 9S3jTxW+OZ 7EQOySL8Q hvmttc0T9R J19eyiwtO d6SrfC0DCw iIVbWuGxK z9P86abFD4 xsiao1HnC pa3d8jmY7+ LCKE6gvmf XaJaWDzHN0 gprRIdbWk SO1VUOf4gD bmmFNaLTL a3wN7V+i0l 0I9TR9UQW g2qUzcc8pw IuJoq4Pot H8vaRvvU19 sPWb7gmX6 l9W3KNr/wN 2mVja8MNC fZtRZyQ624 YoyfPpacf c5zLc30LEp MiJcDyWdL 9NEuTTztjj q9wf3Yv/z nckGk1YHe/ IgHPcgrkh EetPmctXkc /zsIsPb+5 wHk3Ish7AY 88fofknfX 919kX28xXx +mXsUNhz8 amGxSQs0UP oxciW1S72 uzanIXAPtm +qlyw41Wf uhwefM22wK nMI2ouK93 FivFFt4fap /LRmw+7tP fxYJdWuO/K Z0gqaYn6S pkgu5sLi3E fDwYwro0r jQBf6lzOKm 3wmrX+PpV 7IV3pyHV6r w6IcCCd8f aV5pNWy+US 9TjSswo6y 3MoZoJCXq5 HANF4mi0g KiWoev6ayJ avg6OqwrR 2mqblAI+ma Um1irzcax 0mjtr1jBHO XdNyAEnXt ExQ1VBys0C pmiaXOyPl 36P+Lt/1/J Mj8YTUHlj eczOr2oque F2sBKf8e8 Fhti6zhMDc a1rmr+ial pd14NzNEEo mvjFWw71x vb7ox6ojzg agkfvRy+q cYb2RINxqj dUYgnterS Q6T3ZH71TW TlQ3ZKSDk C8OoBxt1vs bKZ+Yr7dD /j1bW5zQ8Y k8Nbh/JxL +2DW3JqxKN SEScB5m/E heqG0ejruv QI0tQnrtf pZ1bmZQgXY c5R0qeM69 XNMK76+yzX j1KzqjsIT Y24XST6ah5 fSGx5dmcS uUh8DwEb7Z fC+L+XRNK /XnrOX/qV6 MB8dFmBdZ l2OoTatKYb eOKm9zAqK 67yc99uCHn gKlr7h6eh 5pBafw/9M7 2PeSJcb73 0obUqm7STn izUb0y8A0 bFy3u1HrKs SLWI1Yc9l e9Y2aQub4s uCdVkr/hZ Pihllip/ra3bR3x aDu9knKiu eL1brG571b 3PV63rWH1 96InpUsYc8 1Rxn3vL57 i1s6wTSmez PmqwzU8K3 9wu3G6sjH5 bsM+rXAvV 51Y9Jdk/5y I3fTpQq6R 9U9T/ExPdu 3TCo+lH7Z SB3y7BBz3P 5OLufZpzn ZzufBe4Mwd me1l/f/gH trctU+Tw++ aq/PdS0j7 pNV9utc14v /CK+3TCu9 +OdzZbAsut RP24KDe8k dixVjm1nBd pZRa2rpyi Bx0xcDTcdP g8WOejXqP X/O0wv+6fO d5yP+6fGd 6xe1oL/m2F 8JKNW1xmr SYmfj6wRwn lM1m7TYqL OfwRrttPZx +6R0/2kPr MWxMW1L9xI kW0pomf6F BuwuuzjvMz v6ztAu5eL KJ68dO9k/X O+5lfCV00 mkfktT/G95 wttk57b1V /xZuVvb4ux tfmKnNWcv XqXzbk/q3v qOmObB70f pFsqbS576q wzztfTqYp hC17F21Hn4 VQmec/Q6/ 5v0YwMpwu8 V7tM5N5gd me3W0fkK7j G8NfIxpjS Dzc3KdbEmy uEIk5pP2x JmkcqVSB1q xfgXhW4pf riiH8tjbxb vuaQXbqNz jleXaT3miF XiILa5ifl CSvnr3xDXp +AZUBo153 p9fLV+zskn /Pzj14xwf Vrhpdwn/tM Cqc1wi2a0 wHe8mgvuWC bp/OKgV7q vWnxWXhkY4 yNCwYWm4o 0CbXJszBHb kbJx84Mca /YIbDNQenm pnjhsZp2j Tdn5qLdoVZ 9L6QGV7fj BBT9V1gpva gRiSi1dnr XERDmqlvAw xrfBnKN9Q 6Sq5D3L4vX PKrGw29mh wbvK3rCO8r Ur7u8Kz/O msUf90Pw4N gS000Z8oV g+1wqZvITz M5unDC2RH /as8Zj1+ns gl5uEo4ug YUWcb56WFv Z+PXjwkhv EGLjVlP4Zv augE741mX tum97Xthni Ej838LmzR MUQWm/bNu8 UJ8HmcJCr psiUML/ZCT Riig64EmJ ujqOsI87lv lYgpjlZwL gkC1z+toI3 T4eqskUya lafDD4m9/m xVA9wAD+q 6rS291AFy+ iCNCk6Hm0 5syXlP6Tah ykgOb3dei 9qrD/e0Vx/ uaa/+dU/L o4KgI3IFRL jrH0LYc1G yBvuDj3vhB fuRdxrGaY YM7zkdOiip ToyCPt9xw tXIfdS7N+X ZKi/tYmCe 0ngAmYf7h+ 8RyANbufg oaHxe3zZXq 9xN4cxuYc 4vcRzeaYUZ t7V18lmqS Fsby84PYs1 odmtbG7nB O+5VxtMi4j mf7F8aXRp bZG8vR/fXO +2N+OCd5i PCFqfbGAEe 0K7Gchtia 5NdbH4Z+5Q RJLzT/PJa qP1p4DVifX bP+MK4IW/ KdbrXf69BX Zc9owkcdP o6sLxuZZ/e rx8fMgV75 Rx/OoLead9 aWU4IR67V yWbC55L0Pu 95El2ufbP 8DqyT7E8p8 RmCubCfbt MGNx0pldkc +OHqbZJva 0ES5VeJs41 AVk8bItrU OjoN5bbQ59 A1HKD71c8 rmKcVHqvye a5DtMIDpA vhg2Ar9nvd +lfjOKzTX thSk0xe8Ou XcQO80+Sz NQTy/OztTw lu6M1tk01 z0gL4uaRwN ATmaYW/qc 13BFhhjhyy /xQGU9CEZ P8E1ar4Vlo D2tqxEGkQ vcFcqu+voO ksBcZpwrM 0NoZGG64Kv 89VeUvAgn Ha6+tgnCa8 KdjwY4Urk hy/IpYjTME 9TJOI0X7e zYxg7S2S/e ChPp9mmWl HOAqVpjbm5 dFLwzTtdW ggXOI2WPnN 18SV3bETF zj/s7rrS8t d5qGzVRmb IhQDxLG6LF 5jy4S618b kW3Nv55v4H U9Dr6PISP SThlIWz0HG j0V2YCA2H Tk6Ie4MLKv a4BaRUkNH y/IOm8ATcB AwraC/aZE voWFapFfol 1w4JcdaJE aGfmnOULzA L63wPi/bQ 7+0TFbRL+2 DovJ/wy+t bPyxdW5s/W 9WXKPytsq nvdwT/dIyV 0W/tFLeZy 0fkvuiYVqp z/e26Yjmc 7t3dWF+s/G rtdcwzRG/ Xr1PwJbBFb 80xdXfuIV 8nVkurU8cq fjxwnTA8y BSf1Yq9L9i zXEJ/dJym EW/eXlc6Qm W+MjVyO9k +JAHH52Z5t oLtH0fbhI 1V0fqcEEg4 yBRKj9OVX 2l9cV4jHej ozoQMRW4d FqlZbigVZr wiUFDsqb1 6ZZWeEgkpF taKd+jssl 4dV5xrlwfl ZpZ4PSIfK apfD5puJa9 Lz7kbh6Qd jVelw9un2y ckvaiXVrh 8Yw6W2sHV0 XcQb3a2Kr WykevPHfl/ GL2ko8mEF T7R1tMahsl uDgomWGYV spfDox+aYr moUPq77Uf HwjkeZcHAn neloHGhHd V64mMjaqPB 5FcuJXTzf 08SpOBtf96 tdzKQzYxM Z7seVswR7b g5JGN8gGy dfzGm7Q3Vt MwLcclNEw F0oKYGLmVk 7TC/VSevb Dt0RmVGpsY QoTEwOH6P ee72T1CyFS PXruyJvVp qRxGi3xbV1 deuW89/kR 7yWvV+laLj 14+DNPe3Y TvWq400Ev9 7U668vvmM p+EtZOVn9D 62JgKd2rd zb7Rwvr2lU bmG48daB/ PtmZw8XAvC 7nrYw+7tP iAyn8a5UHk /qS2Kw4i8 skyBaNfWik mnyYzlP6m 8yG6VvyHJ2 LsPPsoaXb apRUestxNu 7VOJ7YaqB RrmIJjmpxu /jv6MAc7Y z7LsL3JzXY BT1JWvdRI wi9NWl+R1O aMwmlxw9F Rrn39/QcZY mGljAI0Wd cIslZ5yO9Q 2h2fY606/ +uaLsI1PxH CWdqbGsAs 9O70AZr7Um jAQR8cmTj GopUvRC5cl Z+RyTmE5o F2TCxtVp9p NplK8dCzF mZphadOVuC WlgvndEt7 n7b/pGuBW9 w7fLCFt96 A8OYrnPDbt hm1uHHJnb zyBqWfR7Jx bRwc88jj4 VOZp2RTXMO rkyBx9JID XG3yWg2WuV xy05M4PV4 IVWFjFRzTI lVFwzT/LF /w+PSztTp8 uIZp+QjCL 70S0ZjVL4y M0CPSYJSS Cut2Q3WhIw 6wsEtTPFt tARDzpB6We 9CsuDSUwC bdkI3WcRhU TKX8lvfCq c8ravZ5cwG keZoRWfN4 a7X+Wcrrrz R6ObOfdjO EcrzJcEorv AqvPwJ9gE JyTgOjNMUS juLUDgl9C n2tgv+pfIa UGqblsTcb JmmF+648P3 7nSWWalE6 BJ+31WfBJE b2SNbUy9U zg6NljzNOg iksnh/BJK 6c/xp4xL7m lx5IdeOJm gip03ci7Bu kGfdJK+Wn KEMG9+lcFp 5kViM7w+z A1/cn9Lw7q Nb8Al0CAi cIerfBtJio Hz1MgAf7D 3tz60v3vmJ EcU1c30// YEq3NL3zjq WwTbNFefI Fl6gtj6kSF igfm/VQ/0 XRa3E19SNe 5D/iieUrk i/pLEkrwRU p6N29RnN4 n2afjxOhdM WDgi/YyNP VZv3ch3fjE xbZB+KIVN qHC6a3S3Y4 gC7R4k5az Sw+6heAdey HoiscCm4j EbY1xltvas G97WX//9Y t7qYtZNFMc 8LfI7Ua+G fqfah3v9q2 yDBUiGweD FUmzYWaP9n 6Vb/xuU/m 133wLUPF7J QTqx9AjPJ GyQ+JyUPaW U3dRTqYXs UOaPNcHS/I gpVXD6dqg 4E6LYmIE6/ JCbdKW8Qd rLNlg+qO97 hX+aNk7T0 resvgrK/L0 F1lTDtzrD iS0pxptLE5 ojY3cZ2kF j5MVi6su/+ FltbppMIF BmtTvEcUPs A1p0kolOM ZphZfV+tYq Uc5hp7F2M msGQSU3CR9 b8uyVy+Qf Dmml/EzlWW kfgIiKq7j J3xgjv1Br8 VVu/lW9KZ 3b4Nkc69Q4 RXPJJZLDI r9oraQ2BZD liCZi3xxA fzRpbUccz/ Dfv7WfwPK OaaWccZzlx tU6Lpeqmj EerbAulNMe krR2Ta4mZ DF9kwmmO/K j1KHpal5e OLN7OB8fpk WdSi5WEXq 2aK/+tUcri GD+qjOeJz OeJ2+dFV57 tBeVYY/2o okm8zS7G1c 8ng6iN+X1 8vxiXogZ4Q iFn0lolNr j7zjPQw0uZ JXZXPIul9 9R5oHtZaOl /JXLh+jtX U+P9pL/g1t V7BPZ6v6U 2KMV/vTRgT 5q1UPkD66 9UwEzEd6qc 7fCDVIm6e T4+HpiG5en KkMatFJ3X PcHOYUP8ph 5wIUHG5t2 QrHdy4kQ7C ZuTbZ4Z0d Mci0yOXApF G9W6T6707 2kXR4vn/AO I5GRAaqmg SzAD+0F40V 1vnBtzyKW 5/D3HnjPce YfmlQ/0Vx sV5eh8LQA2 4s2ZeGawJ b41DF28BCL n3e9BcUWL a7WFRv36xe 5ay66V21t eybCbsku9A VHtDcsgyP aG+Lx4kQjT JdFqUJo3n Jl0RBRZICH 79ivs4ga9 WRFfg1iCFh X+mvXctOO ZX9d29qTK2 h3KktY4Bw 3x19k6IP1k 7EO2WjkhS s2i6lb9Gak N6kQvSsrR SfYPMIUrXC ZFpsQg7C+ NX2Yhjghk8 WuuyY50Rm Zb5lS0Stoy XXVni3VrS 8eh6dCnixe SMzpi/bSK 0nO0XHM4Ly PIluYdf5V 95dip7YcRj gucr6EB7m Zx0MUwCogJ s76+69V7L PyOJWXvmUw VTv2MFUg4 T/UFXwcR0Y RAeDhFovl CM2nFUIpQN jx14fz6pF 5m8nqqDv67 HseudV4J5 5i8cpS75R7 n3rzA9d5b XV4WN241n6 6c9S6BiP6 7ro0Imq8ex vNW+AnIiA 6ohUeepuuI 1rBPSqbTL ZfbSE2mDnV QEWYK6t0K cxx5zULtcZ T5H9l1YXO 7e1FLiAdCt CHVnhqlII fWmHTqAg/t IDxaZay2F wV8gFsFMw6 pT7z5GxhB pIKsISn2Fm 3R2W7cNfj GYtgj5TcDT rwkKQ6E0X YoRVuVnnoW BN+aC8xcP 8QZpHYB1jC ZmCHJsUbr YVTJPzQXny ZO5oRCFIS gPZzI8oN3G SBU0ShZvw uR8m9A4HD/ UbPQPuTzX q0Q/OMTBzN kBk9Pa6MJ J1qAYF8i4q 2I0n1jw4f Jvp/ww/NGe EIfmilfFk iw2G60kFT5 Suehf7Dw+ x8MqEbuJwT ooyx4rZN1 kUnl9T55S9 b5R30axFY m2wdpB/au/ dD7phQoox K3+MdDnE9e dkQF8Nty5 Ah8okahb0c T9bOPbzHb vrUKc+h9C2 cJRaK3Y6G 5MCV3lnSEp edMhwq3+K tOlC+ffx76 UAfZmiFj+ ceyTlw5tbN sGI0zbwNy b4wcPvMlHe s8IXdAUkT NdiMj8eHgi ybmzWWwxD yGGK7pf7wX CzRSvnRGA OWrSRx5qCf Nkv0iBYrt TwYfBFZR9q 0fwRLtMKf Ju9OCt+yvA Qes9D51MF NryWafBgLn J8yViXQkg ileOxSvDTz CEO0N+I7F tOgaZ0Fr92 JCXtgbeyU awV0O8Lmt+ PsT0rceDQ lGC1ybPVv6 ac4I7hOlD 5o+MUJWi9f 0eEjdos1Q 1r/++t6+u9 Ht1fP7iYM 0os+aFHYYj WerbRYjU9 ms9SXS1cu1 TScJmilvi 9mL7audiBU biIBpQla4 jkrfR4v7dO tsEZyuqBJ +YhIzvOPiO WFv9Myxul ZIC16AAysr oNhYn8liR K6yYz+4/FV nrMev/5zv treRCxPXoj l+O1Q3KK2 Bi7nD99L4c Kt1/pnK0P 7vqhu8cT3n bJW80rudS kBstwoc0B8 8hlViR1SV ygj0MxdJiR mbJ9+WouJ OY8/tbkTmn oHP0MKU0D 51G4G0jYe+ 8/Jtf46NX O698INKaa8 vyPCYyu2G Umsh4PVN6E EOkL7VWvn mtb/IrxmOZ wJFfsI2tv oYiokhXq2l ctvJZzDAq 8SO07pt90M OOenbRHOy H34313dffY 6kYauDLE0 puZ5/CqX3y PRjm/v67H ibhzAPd6MA GFV83s1Lu bGF86EjmeN Y6PLG3WM5 bF2MOD/xAR ZtiZ5u6tR 9/bag+5Ny9 gzxd6hMzx Irwna6+Rgg wF1w9D8cQ mFZb42uliY oC8SOaX4s cSe1dWzaTs GihsyM8zy KQedvieiiB 2iKTrSbYT 9LYSt8U4iJ 6NOtCeU1R Ttw3bo/w0T eCcbFgC55 FcJSb0bV/R GY08KAzDx iSVQwAmv7N Rzrjf5GHa DBligvSHGd /77UY4v5h KVyY9L3TS0 ODE/x32HA gj6DSIqwl2 Q6JvSHIqv STG9ua7Kh8 m/8E3QyGv PDPezwjo/p /tZKbdZ+W hvCfezwpoP oPuZnB/CN +VdsTbXojn EJbifSXmP sR9oYlebaU 1cnCFQyO4 QZgcM2F2qq l1F2EROzq 7W8PrC/ayw 3yuCSif0H 3tDHrifyfn tvt2N3C8J /P/vftbuGv 57VvI7Ive //3puP69Tc NgVFP5/Tv +sKhAL3iha Bn6JOg65A zT96ZmXjK5 Qb5rOrLK4 heoOq6kU/O z1ucKdRsh 0f1t62E1Ss JPfXVXfVY 39cj7Bv58A d7gGBzzcj I++uxJjDdP 97/D8Vwj0 DsAU5Tk9Vx +SxV/l/7m uygp6c3aGC hBXi7ebfX 8XwI9Ekygo O4Kq7Ltfv YHkD3ZZt69 D4cQX565c ss1OMGf8zW BO2hcvlLb EoDelW1A1+ Q5nb52qIw 4qi/2Qimgf G5b7UT0Q1 njL5kV5K9X d7T51+2Cp x72vWeA/Le fizbe9gsS k72rcMxcx7 Ijs9EBM8w /Od/67mJLX nDEp3eWBx puxWlF3ij5 3o6/LkdC5 X/eL3eFkta JrbVfswWe oEnXXv60dO pztbu33IO OP299iHim4 +wy1q+2I1 3OpN8F9/zU zqnEqxC7v XddjcHZcxr Uwipt6/Ys 2//wXPvfCL Mk9vus9gx Dqn6gUE2au fyO9/fH5u RZBf6XF8I9 b8m09i3h9 K9oDCz/tro YIXbgxtd1 aUHY4Ci30a N6BJ1nNwr 2NeNjuEogP CV6wHje0O /17moX+ff1 2C86903t0 WnYm3AJZrX 1H/tEVaOw 7sr/U8lbd/ EM+VjfcC6 32ns0b+oXO u4LfBbSaY 5cety9OIo3 KKzBJ12wN ZkXZ1tRK8C yD8VMuqi/ yNhB6ub2kW s87VSGw4k B8EuxoXOE3 wWOm2Rb6R EfnB9IY0M/ RpJ2weY1/ vTv3cabRcE nUuE8CAHd HcXa/vkLRs sOoJsL4h2 74/S5dRG/Y j9Lhiyc+l XUIzUC2JnU I4oC40maV dnsNjNLANR DICb5sIC/ u2sVy8g18Z 0xcc58wh0 yp/WophGw9 UzcCFL753 EwAp+YR5dx 3ufZVtKlF 52TRXYrIos 0CM26iEMO fck6Oa0Q+l h6drCz5+m D55omTiCbO anr3je1Sx HHnpU314Gh J0u+qg5R5 gIC6mF5oeX G5nh5qEOQ PZxM/dt/dC mn3Mw9kEu Wf8aAkKcCV z//Iwxn2W Ixr/2OcXIx r/mOcSoy7 reTjiy9JWP Dg7ZYfRfZ Mb+a4xj/GR e5xbX+M2d tiKmeIM5Vf 3fPHC46nN h/ikFYb07U dDgrHdfs5 HOON6/VzOM IbdxXhUC0 75diKtngl3 1xiwP0me3 C/V1KO+/dK JrziwF1Ht bjkqj2sryM a++RVXluf z1E3gLI+h9 OXcVcMjPO g0iNXgdHqT EVDllwvH+ NkctytNMbZ 2bhzwrzn/ oAIrEust+8 5dTPHqT67 icYaoSG38z p6GXKvLMT 3fZcFjHuDh wyT5N1yn/ WvvNG43Ert 0JRC3Jd+P Rm2XpWHSRw QdmIW9SaC x1Fa/TVwLX zgvS5DJ2g enYJQU+hDa ZjSavl+jJ eiR4SK25U4 XEOevJRrx pMJ49wvWiy e9qmpbPc8 7V4z6aZh6R UsLx8le5O 6e5dy8/v5J Lq2ECLuzg 7jnSibNzkR Mv6g5Zqmi h2ihYukbF8 pQfozn43I 2s8uS8lznS Mxltzdd8r 5LjtC8+hxW k4ivsTsBi stXG+dbMGd deIZntdXJ 42kkqX25Sk Bt0oBYlLf 40mp3R2hyy C2jOulK/3 gvANCIW+Be mL3LYTNyV x74mqdul0x mdLochBPj sKl14zi4Xs isEn3w1uc sD5o5yw7eL hQysC5la9 la89XmaGm1 +bjoxufNx gczSRAFk3y yDkQm0fi2 2Bk8EmkX9v PQsdRtkDj iFezQyF5ob wg56aCjfD ste1yKwU1b dd54JnzCA 8UdZi4wY2j ccYWogzBL ckR8SbuAOa C/k2o90cs 8zwMnfjerv CUceiT8ci //GcTr1gjh d/rJtXjyV g/tnCfjHUd t3I7ny0uU D9p9yZs5V/ +LG/e+Kelsey LcXmRBxu8t qVoz2ucfV 6o2gpX26vO Knw42ogSk bI5hXfOeww PMnNmUvZ1 MNwfmjwrqN G7W7JON6R 0qbt1UKgV6 2kdbgysY1 NFiH7bRX6O dvINh7bhi Hgs7D/RoLP GoxuUXEcp zA7iW2Cefp t54L1vT8a +EfpT2k2tW FacTWlvWJ NuyiLH86rW szdPnd1vE 6Vxn63+Sa9 nD98751IC +/iNr/x3K9 eKjFz4Six 0ojg5a67M6 ofb+AJRZ2 f/qSYz++o0 H5HoFDo8u hXWD90Tsfi cJ0R9Kt0v HDkRMiw506 iaz0cbwEj 3s1oC/n5U5 QmI6pIfMq m72n3EFpCB V/OzWVbiF BvJjsmAvu6 zUTSbl+vm UjauXFvzi3 2TWDHrGDf 8ODWj05W7k Yh+/rLxOO 5Nzm9pbNQQ 9h2/P4MA5 uxDJEnyhDY mQWtNod3s k3outoDxhg NVMfXv2/S J+7Xvp/RYm XhGslImc0 f8x4osK714 emYP+zrIS IgnC4Kjq5w gP3uQqK7x 6Ia5PynxPt I8CGax3/p vb2xTpnak+ tpqPWyX2t WGp5YeGWqL 37lZiKyBS DwoPHJwBOk DUyGNpQth pemTNP1KBg Kc9oHAKuA ze9JJje7jh f9jaadQ4o ++17RvrEnv rQEHbRe3O zuW7oijG9U Dpi93T8+8 ejcxys/0P3 lmTIfLC87 2Frv+bM/0z MeOcfh+YP aGyfs6/Flaca OUqDydu+O Uriah+7XYQP3 PiOTItRa3 oeWkfu3oY9 faqU7tHoc pfO+ck+yvK /cl3c+Let TqcAaStuUT nvUbuzhp7 u/CJsfoPH8 UTROTlnte tiksvV3dwT 9kE3JwU93 VK6xl2TuiV HhiNb7Ide 9by5jTccKb Nco6qiY+N cqxHmX/Pxc LaFQ6pkUs ke905AV4W2 eh1njgHnj aocVBw6tRO 78oSurGI9 92oEnb6oIm dA+07P/gc HkpX/tHOhI bKz1XAPH9 4+DWd1lXKb gQIa4Xjjn Yz9CrN7rj6 roRvdxM5u BKqpsKG2g4 Mn4EUd2w/ YNb4+8gah5 49I2N18LL 0q4j0sRq6x 1d4gp3Ojh 48JU9q31yv C/9HaP9o9 gp9ekdX9lB Wr6yqg5wD fvnF2/lXwS u1wN6DdX+ mkJom8EF/9 hUGG6K2s9 btdkRcjeCP q18X5a7Qd M5bRkle77x ozd2Kjf3X yIWdtiRcza GciCM8I73 KW/so+zttu H7VMkwlxR LMQHLG2i12 LD5CviA3g hbghCsfz1K naQ/u4dJY r4k3ntO39O 52dJCIX7a Phrjms2Uyy 9Czrej645 gcVSdA6Uej 8uxZq6WWz 87QyGzyBJS s4A9TDraV +xgbIjW8cE v4WVGw6O0 JQh82acvuA nicW1lh0c 21sMbkHzPZ phlU5A5j8 wv768At8wi +qEic4Rxr Kl8xMmCv8w mZ8fHtUYq 40+ZzMxiS/ MyJhCee5q L6UXMM+9/f EhC6TET4Y eSOHcVvOww +gWJNHHnW YS0fHVmNF0 gVN5mf9ln 1tiLezv+3I l2gegTF7G 5v8Sa6zGnc /dOazYCvV QwNjH4d73j 95Zfn64SO 6/041Ia9qT 3jOknrX2D JwY5sAw08M vgkfo/qiX 1gwFmom6Wo LApvF6wEw au41uoO+/w pxsnFt3Xs bREWnFXyOO bND5nBPjc bJ2G4xY6g3 3mVlcH/Fb rm3Je3yYEk ySTO6yr5x o7g9+uGpDi zlMXoZfut T6t1s6mRvA 8HU63Bk5W Cx45HRbFTk aXLl6HPFx gpS0P1MDbI PnEpLjvut D68stXeUBn tA5cp4Bt8 NbsYcJ3oXz jrQXv6loZ LD9Z0J4H83 bHcEqx4nL VCstk0Kk6K VdEUp+U5C x4ISRZNarL jQWB1eC6c VgHcdLyjlO ee++HyPlR 2Gknx8nrtU j7/uY4sTr /q0MsefZc/ S0BP+cI/I EKa44vqC2+ GWdeLbgTV 3M2LugmHfX S4TrdgT4s hv2m8i7y+X KUvL+fleX wbZif1j3vs EPyhSuAzt CmgLVzxfal Nx68qAMuq FOyVIPnaEl +kKfApHTB 4FKqKY+SFS 8lAi88mP8 KF6whh5NqL r8Qk0zxpB VoAc3SO2j+ oORzw0ZG/ Xyyqj5eV1e C0lvHZv1n 13uAggEZ5K SWTfHvgpO eS4XV+ES0U 7nRqa9a32 GpEcvfN0Lk yGZhLw5p1 UyIkfAR56A NOYr+WnsT 5KMP1es1j3 p7j/jkl+W 4n3OkMHngB gXj1TVvE+ CwwquWhnJS 353PhjJuN h+zBs3O5DB 19R+zJDii obYS3RP9fj 3I3PMar0a h3gPK7n8fO mdhJCK+9Q +RjqEoPZxF bBHZSwDJt pbYPvalbco xckI8SibP tvKAd2lUXs K8kI7lY1Q y7ttV+TySu 4C4ZjPVLn wM9ac6gBAt oC4mR68hN Cgkcj9YHnm c7QAa5lLz ArIXaTuNLm Kwfxmosn4 qE22k/hNOd VkFpXHTqZ RlxHfVNBpv 4aad9fTDp CSQ4V5cBON F1s5Qrcj8 7HjkT62t2J 5t11cxdat l0L/2r1Dr/ R+fwhC1Yw htHQuObNLY bTQRubfHY +uRDHoHj9S kaldPczhr fZY2EAtobB WjYW6yrPo Pezfrmzd2H zz4PqmFyq WEIxJDX0Lp zvGoldL1L XTI+MQvR3u ANx15JgXi NevPCYWBxw 1zcwd1q/q X194o0J2sI Q8uzJhKcI orglc6k+ab H3f2ykzI/ 1yrGQsdp1c yNXk6mil4 wpEhGddO86 TnfC4tiTd U+pXLaPYpB /tVy+jOFu tmDlhdCd17 eiA1bkjyW 4ugLJTVDX7 byMG41gml UT1i6p7dEG KuD8V9Qyx WvmbQi4BpL LpINv2DDd Aypf9oUeNu CYPhYomSy yFTbNA3HE5 Uu3EhpfeD xUmXTE3Gca t6VCqEn7N ryHphtO16H SEOM1lsRC PjvQc6nOuW Jog2S2Aqa Y7FxSSMcxU UM9aGCE4x hxY0Odu5uZ oa/LDQloj 8BclKIic9I DXJCLsJR6 54hDYJEJhw xsFiU1+WG uqEYwf6Sfj qEcXUP00E NVj4WKPZnw bAzqbmMmM +67nseNHLU /iTwZ3sAd QIEKOY5J2+ Agu05Vqtz ZFtI3pLyd9 8OPjjDVRZ 5KjcSaZ+Ok lK3tGl0FO OhpnrPhCRu OMFV/Pee Hpb22A/FNX xNCI3OvX2 RkcpKwEHoC bQkO/fuGV t6ILdEeKBs BbJjIY/dX 1YzhbC0yeW hZeVIGmqV dBJGpXDn4k xnlgZq9pd JJly5x5yo3 q7sIzoOHW oY6R3QNU0M uEJ4DeNwQ RDncK+BovV ZVEk4Ouj4 Y0JxJJT2RX 1CgHZi4xn m0GyID7Cgr yjggzxFsU 5oxTiizFBP QCR1HEs0v uWosTNvZ09 /bOWXiOq6 6XHE+3bXje ns/HO0reG mxqx1NeU9s 4q1g3da24 PLl8myelmj ne3c6I+Xl 31qxkSb4IM ta2nfB+RV cs+A+qXd3R WJOpo8CbZ vxIMH0zi4b ZeSWfSa5P aB6oyElxM8 Nz/vwV8ST mhItbanj15 5n2lau0DG IbnsPyYSSh ehjl0TWA0 heDmJCzCM4 2a7CzrHs+ Zr1h9zLV4T xczK2/gJb wX1wVi1m4q moMKHqiTd +PbeIl3hzg wTgCnt2/O 0bMdZfI/lG hOVOrjf9j rbB5ev7LSe NtbQmYz5y Tm3U2GCSkr 3bgZ68jGV +HWNylDqvv Wl5vmcLw6 vsX6Ec02t4 bJJJJCF8W r2n7SU2yan zfN4emr/d 1KTt3pXdca hROvRdMez LMMIeSiZv3 MB2SC3zXk g/OevV+ryX 7Ld4sMO3a EwEhy678x+ 0M0HDoZ/u s6FGK9rTSa QwG1k/btH IUuzRwARq3 T2rDz+2w8 qfbtNwbKfg iY5hQfbvn JtcxseGeMl N/75BVbDp Bd+Nqopzl8 p9J8gGznB ioLyLnVsFE 7FXEG/66m lnls4QOE4m pEDZbOd+Q vVpbTMMN0s Juh7ghRa6 3U6Y3IyyxX GSEEUI0z6 ydLIhHgtRU J55/o1Csj dQpAvK2mOW 3mVIgwTbL Pp0xIxSs3i locWwmnj0 sbgKIaGmn+ D+VKM0jYn 2NsNqHmtfO RbbFe/Ltk s8Wja00qF2 dHuB1gvmX OOm4zqS8R8 KXZALRSZ5 SE5k3SBf1m JiSHB+pfK SLn/dH1/IT g8pmwqrRQ 4/1jDbFu8/ kg/ev5IP3 r+/WWjJosb +gg8Qbr5m 0kKFKV9Rht JPsKEfYpZ qf1z+XFGoy 587JEQtKu 0s3aRJJxoa VESJkrba9 xcXMs+xQ0i ZhebQ8i9M T/cXk5/K3H 098wq5r/d AfTBpz0tBb Zq9P4OWO6 KZj7tu6bzf rHtwyopJz 99nhptw4sq qyoHAvqqi 7ZG5UKFi3/ j4mEH72Cz pff5bivvNz 1gpiMHD5u fVFikOeYw9 IL/BO5wiF O28gcy+AqN 4l/YVGOWA fF+ZYL3b93 UYaakMovc VGeUru6/KK GUP3vlXaY LNmIf+GPtf cxyzN/c9o uVPEkrS39t ztuaJTTrR kFm5AXXfXK QcLhssNEY 9gTioxu9Bs zjq8eVzFC TWxCahah/G 6yEMwcgd7 oDi9Cn0gCJ sN0HGwNM/ blfMUtmveG 0xZEnNfrI s9yrmXLQ0C gY6UtCvgp WsHxsZUTrl ulnNbh59A u3jRv+sKzv 9r/9Ck8qN 2RGPh9KM3g j7ysEZrJt pjdNIttvZU KPip4lu8A yTV+ucRPKz dzYThUdvD SKO7SOqXAb YJJoG7O8S guKyUtkkRh mUSYlXmpR 2P6nnJ2IXM 5tsJxGrrI b3hO4ETlwE iYthlZUXw 2oiGsrKGlZ lRdua083P rpEXof3t7x Jeni6czjI QIPFZAlyXy 7e5N6l80J 4Ym+F9g1xJ SrsaalzBU pz3/giClu0 y5geOKw8K uaS2LqJeku hmbT4PU/b +/MF75A/nq ugHDMqlGB EZpEtxqvPj XHWRJBqc+ 5hWt1Nyn4d lA07bolUL ce+CR3r8A+ PObgD4fED h2cqcGNfX0 x15PY7HDf aKqOOSRCHo lvIKoVvK6 4duSXDsUnm 6ju6cAsp9 V9j+JEV0IF uK+30gWxL seoMhWxKUy Ar1lvJfbZ KdwZCa+Mns 5lsc4UtFN lLDqabD7za 7lLqIqSyF bCm/K8iW8v BVzjFSM0x DzzNpJpAob gKOJpOpc3 /T4P8dlLb8 1V9XYgxOB AoD4xFkJ/H maDDom7AF CKwRwTh20I 2UOjbZz0y TXjlBSAEjW 94p1atiOr lsbsIEyTL1 QW9YcJX9A RU8ZPsioga cXzHIsfYx NoJlnFNVSy d9s0DgDmv r5/3DGKN6d qCk0pLU0f lbff22hlXX G3aZTA03O kWg1ioq48B Merna/+ckF6 f/x+2o7j+D Nh5jkyF1n Marcelina/z4/crH je/n+Zm2+ 7jWL0F9O3P jqMUIqhm4 XrhwNHe6+1 7om6F1XsG QsNK1BxcH+ HYTylFuLN BXFYQYTXPf UdG6f6WZp jIepSB0sl2 qeeaZ41M8 xQ88YpcJMs lpPFk1xcy wIFH7kMyvJ kKriWtjD+ ThkitnWG0F uOX7roGSt sVbO9rm65Y abD78uXbD cb5RR8THQG H5PWsPsu+ cmbkOEvhGv o0UY39zJY 8phcH0HIxO +kS51iO/a 88KD8iLt5p dfwZhN5Cr geTWVW4gL1 s6NKwuRno xsXVrCsJYM e9c/rveD4 20gsP9JHY9 kNOfJgATl ud5W8T9Gz+ L2mPRFhN7 Vk/KJdeIXw IkgOJqm0V WRw0QoJyu6 PvJ6sV90o MxeO9MkkjJ sym48qHt0 RZFY8a89Uk FZp9ok9gT 5c67dvYtyr tV9pg5eTp lD9shTm4ya c7EhzFCDD f3vlUKYRb2 Xccs+B8Wk fS1RUl5qHk MXdTVPuub bvjWUt3MRa RxyeScRoj fm69POh9me NuBW2/ule yFKYljt/ML RDU8INiXa 20QMvwfa15 wDrakissf 2ihCvSRS7E Xu0Zm4nou +Ry63MidOT nbJOAIuRJ xc3/mXsT2t fO8zhjcy2 BzS6fob4QO mD8tzqdHS 2wi4AwGE95 S9v2RAs99 TiTsqmkQ0j oFrZfKIjZ yX2o11msNV t02bYMgOL w4uQn1VNzR qwUd5F9rh jpoWwhg2qH vZoOdDxet HOcTuDguK5 XtCRAczxK 3brD1TXlvp BXoU5kNBe qGpUCb7glf UCvlNTYqd Gfn2PAhd8Y 4caWdHZR2 +QCNGVliZz ptE0xJFJ4 Bn64o5NtN+ 5Lwf1OJjf WWVh4m8YbA WAl1cQWzR pG/kwbUNhl VK4f65pzG FgwuACL1Yn aubZ9rsL1 8vLXQKvECq VXifQitUh bQN9GrCRo4 xtmz7W2Ey OHyo4ykZco M+/Lx2sz7 Jq5WcD/Bq6 MYMbQWNkC S66yTwwyGT ix1KO99JD tNJByfCLq1 XfRe7ymQ1 y2gldSXJny 1orGyho0U mvRJ/Vciav 1htfy9l+D dUXANDT9R5 9gOZyLYl3 5JN7QoJ20K ol4hyIBf1 IqcRTIXA4P GBlmMIP8o JccnynISFw XHaW/41Rs 5dVH40G3Au tPrJuV80U 3pnRtreGzI lHqUTunZe qceKtGesK9 kPDnt681o 9pxZ6DzrWk 0hYpYu0r0 xT5vdHc7EX 3QolPKGwS nlQ6pdnpfP ueQmXIWSk FiWRlYOW1a LGUAllY6O FeKXX9wmd2 07Baek6RV 6MnXqkCcJt rdLxfFJqJ bqvRwl48hD c6yNtNA6D nVSFlqZmXb jzHSQ+lGa R1kXwjW9Td OsFFOqfpV E7rtvOsnzN ueA0zNPIQ R9plAp3teF YZLgefLO5 bdG73XJN9F ontvxYxi1 QIVqLznW9I bmO32gnCM RIGaD7gJ2w RinDdgJca dStY3xZJk7 imjv6wE0n Z8RAdor+ts IUyFeU+O0 rZH1v3H0bj RAHddWKH1 FV1HJFFt0l uuyOnAiqJ AiPxDes2Iw sb+FJ8cnC 3BaoxSKKsn iYUPYJ2Js wJG89A7FSq xvncFxvNS p4+rvaRqDs 9IZpeetUb qGq3I1OOqM kpzQJSUOK 2my8j04b26 E6rhdppzs gOWQlMoCqu HCfm5DpAc P8Vic/uapj nwAOA/lmW F0UOgdeWzD fskO3BAYi 3Orb65dFjC Es1plIV0p reCQGbvrFM uhWzrPYRT 30ezlT8xSr 9piHgoroj jouJne1xsQ mE3V5U2Du D7zS2HlJmZ UBre8iGd9 UlzEDEuiQd pPIeFocl/ eR0q82JM6O dnLyh+TvY pF4vSqoyjr F6xKAIlzf 3LTZmMsxfB 1NsbSxNEL TkmKzMZwmm xMrv6CmVx sbIiVOwMq4 pfSDuv47C g4InSMqlDM 1wciTT33c hVqrln0xlj 4R+2kIWO4 OThFzbqYoi baKJWPdOV zlinqhDhJ8 GkrnGZFnQ rPySkqBqUT 4iSKNtqEO IkJeUcYzia +yL6IgH8K GmAu3U/jiP 691Wnx6Ph FLtjmUsWX0 Xi9w52n0e GvfVFmRuaV KeGYY0s0M 4BtPqmNpP7 ydO/ZRE80 hIGKUxsFu+ TOV4nE2ou Alc4mJVGkm GLaw2g11z Tw0Kr3nwBM 9p3ll6GiA 0HjSsXcveV 0Ru4Da+tq OnCPk1LDKY Z0fmOXZvR 6a5vtueV9t y+H95sRRG 2FMAnpuwVh PhLi7tkD0 T9YFWo8rAn ezLuhn2nI caKmxrSOTd 7R9zdKXG/ xatyqGoeuX e7VQnE7XG uxGWJXBz/H VqiPUndYw TQG6BbVRfa xk2gLDZrQ 6er7cX3vb6 AufO1ovpZ H65bwSxsZd 3T8kyToq/ aAvG8z4eV4 FD5Gc4vSS UupSY+0Fre qsvIqmWUX KraCmlleV5 thhBoan4f anODQ9NTLx ozaGpl77E szsCbKZhrH LVO+tWtDp n44ifWr40w LjVHqTiul q2bFdGVrNV 4cKBPHk4d vSfab4wUZc rXW0loYBZ np7F8+m/tH J1g4bYyHu 2g09o4xSQn +HX1O5K0G ZZNXekOdlG f+1DjXUZx zHUcrlWXJ1 vHthHSypx r3WC4Xj3dH eJgb8l80b E/zprSB1ng JFO+mThOO R/sx1NhWT4 kD6+5/o5A GcDfiZs3Aq YEdmUK2t0 q81GYBF3Bz KEaQYJz9g kYBrWtyvRA l0VQODxHu blNCqY6i1y 2ZYebDNJn 5xbuzJzO/i YkcGd7HSR QZK8+0SuJ3 Marianna+8Qzvx mLrSaaY4ls OL7HMpicf uFH5iVlNiG H43VxxJ4h Lm4bOPF3ty 9NLSk5adz ZBqM6EE24U XqDPB7RBN AXbaH7xntn acqeMGWZ+ PVUYLX08MD UQfk3mVCl DefFQ4p/7G kkrPgp7lU rEs5Rq7wfE J0Uew/WZs oyPeXFmXTA TzhNjJqy4 0wa1ZVM4is PzNhckrHc Y6yKKmrbAX CmvCQolOX N6csfElq4Y ybjvj1Vk4 GpSqi6cvKD cUFcqvuSD Dk6M2loF+3 fI9IeVM6K 3J742hDr2a Ut5bCyiYK w4Ihy1B+9k 3ndPN5utB 4p+z+7P7mW mxe6G+1i1 iYAVTxgl8s UnSVWspCI u60fFzrBo/ fX1VWszXt UGloi7BOBR rEGdlHcN6 yMKtIh0Lk8 l6MbmJusN /XZllDQ1Za w0a5qDNka w0UC7xia4n 4VQufyTH9 sUQWE+YRAn IO7SFN3Lx It/E+OlZTy oWEGooOJM PqxSv2lMg9 7fMsYrFZ6 IGaermPZae ColbsnumH RXTy39hDhl K9jn2mIbe uJnvfj+xe9 1XNaP1KvH opx1FP9jis z+4tMceCp Z48spyZKUp 37M/mblXQ pNUjvnx/wv WdI5tZ8Ly RHJ9mwpS2S +c5MgqFJz /T1+bySDA2 XZqdZc2if 39TTmgLNwW UFrpTKMlY iugUT6m+6o +Njj8mVPk FKSmdqc7zC Lycu57xc2 UPGdKFyVgr opqTbJNYu 3uZ4K2dMpA A/MmUUDde Lnv/hJp+6i cSwNTQbUR MeQKZHG4aI Jydr7fP9M 0d2rmT0j88 cOcZLgkdf k5BUF3mmTN Rgyv3WJgB YShwnHLUki g6bGfM31r pGUf4iteZX fU4cJR/kp Luaj5oBHFx f1zHXKFuH ntvVqI5t36 EUDhcSBOC tr9azDnSSj XCuWb52yr 3Bw7g+FRX6 g/yBOYvLG 9InMk1updS ZLPDiuVnC zqE86iyrH0 N/otdNE9Q kcav8xkvTr 9HNzB7tvl pNm1IDxbPy 61gk0Gcwx WNtCB2122u yU6zqIcJ0 THpnHcrQjn 2yzhOb98d 58WERkR+iT 1iRCnxSFz 8LWyG7tB2e zcbVqU4mR 701LHF/2w2 k8PxNH+UU MU4zhAhiBy g0YeFq8/F 2P2vWjZ23Y oL5Knthha /0V9l40POn kyOHH8fW6 gslcTa29MF i4ZqlUhZU 150Hl9oeVX 1rcsmTrNF xyfE6Cm6zd PDnaWyxxR JaZaBpRHdv FsKynV6l9 vU4xH5Vtww jNGiNqFsq Qub5lDgD8z NnvMNAljj kvuVtg5Dgb tzS6bhYo9 r+wYv91Dsk mAOH6noRH HxyTwmXv6/ hCoIRfP/s bP54vyICCa 0QOkY5666 rY9cNdt/n7 DA5N8N9+O T8z3L7fKhW FAoM7iXdg Ok91XG+m5m r0fr665iC 4hf1Pc7sZ0 qYkdoiOax U0+zatf0j8 U52D77RYN Gk6w7CjZO8 mx/XCk+N+ GUVHMSrsrl u0gtj/mti SRKqyAK06o Jh2zeu1B0 gaBHhwKJ8s VR412351x lOwNLTUtMl HTPu6Wt7V rgox3YNKiy kp6RRms/V c2ToJK4rSA 3EK36fvL0 OJwwquVlAy lA8Rfixiy 5WQw76wciF CY7IotdBM JkcxK+wfBc a94dkHZ1G HawFk3ms65 cewFK8so7 NV2C8VcIg4 3uqsOmeM9 LF/BccsuAp ubwWCR0jp Qpiwllq2qi aVUnQkrf3 0TmNRQK6dW aWytOpomb vorXNlNeiT bt/Marie/ iuZDN9kqyi dXnjGaa3i 1dbJwHT0T2 3ujDHLF6e cRTu0gTvC7 fPJHE1Uh7 yIlwrZZW2t 0uW94K0TA jw2Ohm+s9S umXDJ93v3 BpYKohzbLj jk/XbrxZX SACaeV2Ko7 Ko3ZdIBh0 T8q47KkzK7 McbXjkPGz K5nbgDi0R1 aKUeGbdOS Eaiyk2bdsd ZsmchxhNP s5hRxlFYV4 wptpnNVR+ yj+CVcr27f t8Ofv+bP5 x7+/jV/Mff fD3KDN98/ kLnwSI3GYd k98oO+/ff 9xR7nLkvWk PrbYtRhvB mnL7h2ccV1 Jeny5senG GWKtlzq22F 7nRdjNOOS lCCuqWL4q9 F4i1hE414 baXjexmayV SWCzw8GgA LpCkz1x4Jk dd5553W1Y 8EGIfcbNEv NVc+jjXRu jGHHVy2Ddg iVHPvbX+Q 09J0ZutWUw kkHte0HQT PL1cu2rTu1 DCMho7Ftf V+egXsXPHr BS/emdhgu CmGnbeIweZ IWzZoSZQu t38IRI2rkF rh3Iwhtp/ n6B6iDIo6U UpbN87XZo DG+HKOrRNC gp1kKZDPZ phJsFBpmQW mNhItN7aw 8K1Mc3MMwy SbVCpC96H FDWbnSHgVN ckFRP31G6 C2l/ikNmZW MH+MpXs0R UqVEk/dthF SJpV+J2y5 cfGHFzRZHK ZQfaXMUpV Fx0YMZC7xN xhOoR3ABu W7Z2o3kSTE ugci7VqK5 xO+cJtrTTP LoJkp35Wo Rn3ZeHcZPI 51GixRxOG 0KIp23CU+E GZ2/2YaMz yg7UGtdCyJ Xf5uhdPvR ERbDCHSuWy fjb6P3Xyk zI8W7ei1L9 NCw7mNA/n mcdgRya5b3 iN8+bShd9 O3/ZI0n0rY koTz8mIpG r3ExHKYRgn n2Jvmqs6d Hep5xo6jNg oYwyb15HX JgDHLptZgP 1+B4jYJud 9xdsygPuHG vyexauS2Y qlV7eIAq6q LpD0GkJQZ etZToNFqMF /SodYXjlM 5m6ZSz0f23 f0VNcgQrC O2CSCGul50 lB8uoe0I9 /jkXiy6xcr CHPgM+i6/ 6OtPiQAwq5 9NYOr+/WY 7OjG3MNbLE eGimAZ2MO AWGRn1dlRs UwmItujAX P9qBS7ixZD tnYCnrevG iXoYfzMi0X fLC96zcUP QHIxwbGWiE 27NsAU8LQ dViqOM7lD7 SY4+M3+iu EIgqbw0ull yEgjvCg6d tg4WiNa/nW QylrLsYS3 tAq8X6YdqL WnrBi/E60 oXVmlXR4s9 NbTGvCNok vnwwWNTCSn wsWEDd27E aZuWB7Jd0R XMu5/6Ks5 TqzHQapcVZ 2SQxOouGu qRyKJZw3Jy lbjpPmZvO GlKybV6ZNM 2Cc0ONGmy N68amnY2gX wbMcNq5Bm Anrabhaj9M g77ZyGdpI dkKL+lTP2F HnZyuT/2E Hc9TQ/fVdB rRo8ztwze DZfZ0BY0Xe guZjFZWK2 lfWiwKtreY 6DjkZVmda i4s2BdqkFu i0brIKY7Y u2WkRJG3xc Mg5kzgLDA Jck8J8IHyM Y+mTWqzFH aZJNBhUVBM KxytldIj0 Jccb5VmaHw Pdaanv+Lq YZfhJz4EMJ j0di8rjuy L9Er1ljGHe KXFYLHTYJ GhOaw8Ge7m Y2tHyGp6O hODi3M1hty Margarita+YpX3L sdCiPq0Mx0 L7IBQF7k1 w9IpmOE7r8 vBqxxT9lG 06n7xsJ2Lt e1/7/jHri 0HT/jHrixE Z5CRphS2i zzzQ1N3Sfg 0YStizGD5 Ik+su2PhYZ dSziNAwX8 3Ys7giwU6t rogFWacl6 cwtvgDZH5J KC44ofMji B1O/3ophm9 xobdm4MV6 NFwepchu1h sc54Nk0FR 3wg6Xf9EE6 wqfP2uR4R rh4WAzVbZ2 Et6RtPUcw Hh46YVOsOG 7MGXSLNT7 E40pspOW5Z dr43ZBDkk OaS8XFjK9p fTrNFQXHe 1ubkOxe7fC I0VBwM8KR ezGsDtIngz c3JwrXYi/ yKvPTvTg/R b4Oe7B6pe sPiHeaKwr2 SzDKmM7SI 2/FRzoLprV ifjijAAr9 wjYKoBKHnM aWPxl60c1 D2O0XAXS3L UzKFiFMEt JsNc1Oa/an WLHX4Cesn TpNFaOQpoq Gu8hr5uF1 lPtjIUpKPB TL9CqXS/r ozZ+F4ys45 dbaxxiHB5 77dgPD7BWv TtwYSoOaD Oyt/Q0tm/q 9Dlkv1lvC V6NW8pfbnW Vscn/vA68 5Mm3zgVLrv 34yqquG5A Eskzfoc8p1 6MdtcJEW+ XsbnPwmrrc w8sLdPy5o aPhxer3xb6 USMbFjl/m 2VLHB6OKf/ LXxFaWSJL S9fYxNBEtr yE0Kb1JJn 0SPL3spHN4 37isz7omI dhrXSg2i13 EwjSyMt7Y kVKLYFSSlT gWGiorr/Y PFv8Sv4mli heusLFE3K 68gSQrRTNB UWOPpaOyK wu1jJcKZtM 29RrJ2km2 VWXN1Fb9Ad aRBDV9XiV YMZTxdlX86 xbjZdFOMY U44rKqNlDE OMSa2ys66 l92YhK4hrV aY5JsbrkF aKQp+suJ0P hoy4QE+Hz e+4mmnnaIg vRSQqro6P tjSP96tQCx Nf+ml933L uR8J6gpgDT 4xNjjz4jp rd7bDa+q1o m54j7oM1u WIOdrJl9y9 KQp+epPjV 5GleK5MlJO X+4QYCe/2 MCBZnmwc2g TvwPIyprp FRMAAL8Z2D q866dQlEU 3RTzGvEYKk /LTOJ9vDC BgjQ8X1cUm fxnj5M39G ucg8HWt/n7 XTTTHPs+l VEQfSqyJR/ BQdbRY8/7 xsg5vY5Bte 9JxPcYbdA x7+ADITAGc ULbXDYall keGIHpbJIl 6wNMH3VVz sHvSz+wC5M rFAlhgOcl Dr4L5/bNx2 4kt+xuEIN cQkc6PQsW+ 4+wscA1IB jcRAKqac+E SLyBOfaDN UuMpulJTlz GcyVpnhCj blPIwYcaZi /DxLVrvku QwnjlSMYsS Cljp3ayHm UTxoBlDP9Q s6S/rVmQw 9xnoCoiImI QFRkeSo+Y p2ySjxt8TG DPsEQEWS7 zqXJJTZc58 ttEE3i2Wy b7RCdCAFx9 DIKH2cFqB JKsmyj7INC B4ZD5S2GC +S2UnJJLEi zgLd3KjN2 Ii2VJ1OtKX xeoZC4hCF QeYl6XUACT FfstZLNru kliutaVoAC JiKJAnKLw /I5trQgX+N oaCUeimTS /ZBfcbYzFc n5I63Yn3w FTAVsxZulJ Iyd7Zwwj5 Vxv4rcYXbv u27Vixvaj ImCb0m/ME2 rW6MVi920 R96ABUb26W tceCZwAVA yTdvM2l3tK MVI5/yYB+ fB9PMCrdjS 9aHjRK+YB bS4usHlfT8 duWBCzrem FMW1uoX5SM oqkWSHp12 pTzfqgvVKZ XIQR10AGZ gVGw05tPC0 X/kUuGjNa XO8+6UcAab ObkzWMhgK mqBLJYrtSX QTa2maHeW nNLBT4Jmgb JW71dLngW 8hgqYinDsu XPDV5E0YQ M9rp0GPwfP /SyalxznF ySUvpUSR4m FqYpYbIlD OiD2IAxtkX JHxejHj4m xtjdSzvJIH KpIQQyTEI egro37iHI7 yHPlVZyry MQfkJK3idQ t3HaYXJni DMzY6GZHvs ktwVXUSDr qRjPSf2TWg R1oID8dSI VDzms4A41D Vc5hIM1Ct BIrZ54h5c8 ZuKSdnq2W foWWNHm4Tb h1IIuLZ3Y sD2DqNMkXJ lIjFvV0gq pLjnKlnUZp F9obukcRz VI9S9GVzb2 zkzr9AYi2 5wiwYsqKaR IoG7IA2AJ G9XGb2E02c 1KzBl3EVm 2jl2E0r1xo JGWoGyRlO S8Ck0lf5uo GQgnAihQ6 M4jtKMYkSS J2LiNY2Rq JneK1EckWg h6PCcvQHg kWt5HZL9Tx 0yuyTCpmW fRN7grfiTp mDeJoxSMN O+NWIA/qZK kmvoVe//a rMxnkhfQG2 fslZzmDrX MVY4O/ZJln TKzbJunkv MGKnNZqnhy IgxWDSLLk yvPG00mqDS kEbrNlDm0 tySfiZMWAp oiTFXMUr9 sqiUPHHvK9 AdtsOVxGi 9IPKjKkxf6 XruO2NHpu mz9TfXCeiQ eDxMJXd6V Medical Clinic Manager/rBpDhYk fGTu8y0yE Pjj5c6dNxy myXNjnGzb pFb7a2JZAu tyPKlckdu aKDlW5UtSF 9RjcUqZGD CcLDiHHjpn SnAul4iQG RQ25pyi/th urJqZu5EM ZMo72DFCwb 5VmS3AlR0 Dw6BrGqmtn AUSm9sgMp OxMoC6YGbK xB4E2aaDU V3XoRWtIKi S7rzMul0r eP4BraCBSD oYnZmhyrG HpPKekAh1S +1K6jTO+J UxYzplGJ/R 9pPSmN8kg edkFIuqecO mGymIicdZ wQCUjHUNkT NInJeJ2Qg WCshiLX9ly f8CoPNLDZ A2QanuMmW2 1LyXOpUxZ g+BHPvHH5Z k6ynXEtU7 eAqxjgOrmI MmgArZpUH EAewYRYf8V Gw2Xuvo6Q HzufCwidSH 2zvgiMby7 gR57Avl+pP TKQFyudRX zPJA/OoPxd 5AHnobZMH Lz0MUCZ3ne AlGduk0HT ZzOQE2CMtt iHQiqgTyI ajOznC3WYa ctT2fGdyq EEAWDHiVkz EaQiA0xRu tTnMU7HwoW Nd18c6oSr 4ZMMWGGkbf zbxqwC5Z1 b9LKBlwPJ7 MKm1q3hvE LamKWlrKoK taUovBzkJ tsCZtPdLzk FK5TLpumS rrCgopYxLW y6tU5zL+n zADiKG/WlK 8hN1Tn3rQ UYBO3yJjAP 5B4J63ad0 yvEtBsiKJF bnHcLlJ5Y aFbfrJQeXM 7APRuggdv WOfp21kPra x3NFYRETB T2oirF/Jimmy PzR328Opi ph/6Iunkuz +SVEXflyV YHeC9ncyuG 0EQO6TVcJ 4NqmKLuCKX 9CEDnc4EQ 0nkYAFXMYs fsB7AWtm4 LYcksYoCpf 1W6A9ySgQ ReuzFBFRFf K7LYQbdeY NCFd2U1g43 ZQFTkeScJ Bs+oaas/ZJ SFsfOp0kL mYr+6VOAVK RMi0SBySw DNfkN4ScW/ cV9DiIWNG z/FyAVYb+w 7Ux3HlyZB xmdEH6v8TI 4UjGftuKu 84UR1kO8Xw ZL7avEAcG 7KqTZf26TN /+FgYa71p LEZBJnKuab 2UcQMT1sx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 Interpretation Description Data Sup porting Code Source(s) Document(s ) Neut Auto 54.5 % 50.0-80.0 NO [facility] Lymph Auto 23.7 % 14.0-44.0 NO [facility] [place] Auto 11.9 % 0.0-12.0 NO [facility] Eos Auto 9.0 % 0.0-7.0 HI [facility] Baso Auto 0.9 % 0.0-3.0 NO [facility] Neut 3.3 2.0-8.4 NO [place] Absolute x10(3)/[facility] Lymph 1.4 0.6-4.8 NO [place] Absolute x10(3)/[facility] [place] 0.7 0.0-1.1 NO [place] Absolute x10(3)/[facility] Eos Absolute 0.5 0.0-0.5 NO [place] x10(3)/[facility] Baso 0.1 0.0-0.3 NO [place] Absolute x10(3)/[facility] ID Date Data Source [id number] 04/27/2019 05:44:00 AM EST Elviecastaliastacie Herve [facility] Name Value Range Interpretation Description Data Sup porting Code Source(s) Document(s ) WBC 6.0 4.0-10.5 NO [place] x10(3)/[facility] RBC 3.13 3.80-5.20 LO [place] x10(6)/[facility] Hgb 10.9 11.4-15.1 LO [place] gm/dL [facility] Hct 31.6 % 36.0-46.0 [facility] MCV 101 fL 80-98 [facility] MCH 34.8 pg 26.0-34.0 [facility] MCHC 34.5 32.0-36.0 NO [place] gm/dL [facility] RDW 15.2 % 11.0-15.0 [facility] Platelet 177 150-400 NO [place] x10(3)/mc [facility] MPV 8.4 fL 8.5-13.0 [facility] ID Date Data Source [id number] 04/26/2019 02:06:[address] [facility] Patient Name: RADHA CRENSHAW MMRN: [id number] General DiagnosticACCESSION EXAM DATE/TIME PROCEDURE ORDERING PROVIDER [id number] 04/26/2019 13:08 EST XR Chest Portable Jessica BENAVIDES, Bonifacio Valdovinos Auth (Verified)Mosier son For Exam(XR Chest Portable) Chest Tube [...] Supporting Document(s ) ID Date Data Source [id number] 04/26/2019 07:35:00 AM EST Miky Hollandt [facility] Patient Name: RADHA CRENSHAW MMRN: [id number] General DiagnosticACCESSION EXAM DATE/TIME PROCEDURE ORDERING PROVIDER [id number] 04/26/2019 07:26 EST XR Chest Portable Jessica [...] Corbin Carvalho MD 04/26/19 07:35 Transcribed by: [facility] Name Value Range Interpretation Code Description Data Renae rce(s) Supporting Document(s ) ID Date Data Source [id number] 04/26/2019 04:27:00 AM EST [facility] Added by Discern Rule GLB_ADD_GFR_BMP Name Value Range Interpretation Code Description Data Renae rce(s) Supporting Document(s ) eGFR-AA 10 >=60 LO [facility] mL/min/1.7 - [address] eGFR-LORIE 8 >=60 LO [facility] mL/min/1.[address] ID Date Data Source [id number] 04/26/2019 04:27:00 AM EST Elviecastaliastacie [facility] Name Value Range Interpretation Description Data Sup porting Code Source(s) Document(s ) Glucose Lvl 119 65-99 [place] mg/dL [facility] BUN 37.0 6.0-20.0 [place] mg/dL [facility] Creatinine 5.54 0.40-1.0 [place] mg/dL 0 [facility] BUN/Creat 6.7 7.0-29.0 LO [place] Ratio ratio [facility] Sodium Lvl 138 136-145 NO [place] mmol/L [facility] Potassium Lvl 3.7 3.5-5.1 NO [place] mmol/L [facility] Chloride 96 98-107 LO [place] mmol/L [facility] CO2 33 23-29 [place] mmol/L [facility] AGAP 9 5-15 NO [facility] Calcium Lvl 9.1 8.6-10.0 NO [place] mg/dL [facility] ID Date Data Source [id number] 04/26/2019 04:06:00 AM EST Miky [facility] Name Value Range Interpretation Description Data Sup porting Code Source(s) Document(s ) Neut Auto 66.7 % 50.0-80.0 NO [facility] Lymph Auto 17.4 % 14.0-44.0 NO [facility] [place] Auto 8.1 % 0.0-12.0 NO [facility] Eos Auto 6.8 % 0.0-7.0 NO [facility] Baso Auto 1.0 % 0.0-3.0 NO [facility] Neut 4.4 2.0-8.4 NO [place] Absolute x10(3)/mc [facility] Lymph 1.2 0.6-4.8 NO [place] Absolute x10(3)/[facility] [place] 0.5 0.0-1.1 NO [place] Absolute x10(3)/[facility] Eos Absolute 0.5 0.0-0.5 NO [place] x10(3)/[facility] Baso 0.1 0.0-0.3 NO [place] Absolute x10(3)/[facility] ID Date Data Source [id number] 04/26/2019 04:06:00 AM EST [facility] Name Value Range Interpretation Description Data Sup porting Code Source(s) Document(s ) WBC 6.7 4.0-10.5 NO [place] x10(3)/[facility] RBC 3.28 3.80-5.20 LO [place] x10(6)/[facility] Hgb 11.3 11.4-15.1 LO [place] gm/dL [facility] Hct 33.5 % 36.0-46.0 [facility] MCV 102 fL 80-98 [facility] MCH 34.5 pg 26.0-34.0 [facility] MCHC 33.8 32.0-36.0 NO [place] gm/dL [facility] RDW 15.8 % 11.0-15.0 [facility] Platelet 180 150-400 NO [place] x10(3)/[facility] MPV 8.6 fL 8.5-13.0 NO [facility] ID Date Data Source [id number] 04/25/2019 12:51:00 PM EST [facility] Patient Name: RADHA CRENSHAW MMRN: [id number] General DiagnosticACCESSION EXAM DATE/TIME PROCEDURE ORDERING PROVIDER [id number] 04/25/2019 11:22 EST XR Chest Portable Jessica BENAVIDES, Bonifacio Kwon (Verified)Mosier son For Exam(XR Chest Portable) Chest Tube [...] Supporting Document(s ) ID Date Data Source [id number] 04/25/2019 09:07:[address] [facility] Added by Discern Rule GLB_ADD_GFR_BMP Name Value Range Interpretation Code Description Data Renae rce(s) Supporting Document(s ) eGFR-AA 12 >=60 LO [facility] mL/min/1.7 - [address] eGFR-LORIE 10 >=60 LO [facility] mL/min/1.7 - [address] ID Date Data Source [id number] 04/25/2019 09:07:[address] [facility] Name Value Range Interpretation Description Data Sup porting Code Source(s) Document(s ) Glucose Lvl 128 65-99 [place] mg/dL [facility] BUN 26.0 6.0-20.0 HI [place] mg/dL [facility] Creatinine 4.47 0.40-1.0 HI [place] mg/dL 0 [facility] BUN/Creat 5.8 7.0-29.0 LO [place] Ratio ratio [facility] Sodium Lvl 136 136-145 NO [place] mmol/L [facility] Potassium Lvl 4.0 3.5-5.1 NO [place] mmol/L [facility] Chloride 95 98-107 LO [place] mmol/L [facility] CO2 32 23-29 [place] mmol/L [facility] AGAP 9 5-15 NO [facility] Calcium Lvl 8.9 8.6-10.0 NO [place] mg/dL [facility] ID Date Data Source [id number] 04/25/2019 08:54:00 AM EST Miky Hollandt [facility] Name Value Range Interpretation Description Data Sup porting Code Source(s) Document(s ) Neut Auto 69.3 % 50.0-80.0 NO [facility] Lymph Auto 15.9 % 14.0-44.0 NO [facility] [place] Auto 9.4 % 0.0-12.0 NO [facility] Eos Auto 4.4 % 0.0-7.0 NO [facility] Baso Auto 1.0 % 0.0-3.0 NO [facility] Neut 4.2 2.0-8.4 NO [place] Absolute x10(3)/[facility] Lymph 1.0 0.6-4.8 NO [place] Absolute x10(3)/[facility] [place] 0.6 0.0-1.1 NO [place] Absolute x10(3)/[facility] Eos Absolute 0.3 0.0-0.5 NO [place] x10(3)/[facility] Baso 0.1 0.0-0.3 NO [place] Absolute x10(3)/[facility] ID Date Data Source [id number] 04/25/2019 08:54:00 AM EST [facility] Name Value Range Interpretation Description Data Sup porting Code Source(s) Document(s ) WBC 6.1 4.0-10.5 NO [place] x10(3)/[facility] RBC 3.23 3.80-5.20 LO [place] x10(6)/[facility] Hgb 11.2 11.4-15.1 LO [place] gm/dL [facility] Hct 32.9 % 36.0-46.0 [facility] MCV 102 fL 80-98 [facility] MCH 34.7 pg 26.0-34.0 [facility] MCHC 34.0 32.0-36.0 NO [place] gm/dL [facility] RDW 15.3 % 11.0-15.0 [facility] Platelet 172 150-400 NO [place] x10(3)/[facility] MPV 8.7 fL 8.5-13.0 NO [facility] ID Date Data Source [id number] 04/25/2019 07:58:00 AM EST [facility] Patient Name: RADHA CRENSHAW MMRN: [id number] General DiagnosticACCESSION EXAM DATE/TIME PROCEDURE ORDERING PROVIDER [id number] 04/25/2019 07:12 EST XR Chest Portable Jessica BENAVIDES, Bonifacio Valdovinos Auth (Verified)Mosier son For Exam(XR Chest Portable) PostOp CT [...] chest tubes in place.Wet reading communicated via afterBOT (with confirmation of receipt) to Bonifacio Lopez MD on 04/25/2019 at 7:56 AM.Thank you for allowing us to particip ate in the evaluation of this patient. Final Dictated: Karen Luciano MD 04/25/19 07:45Signed: Karen Luciano MD 04/25/19 07:58Transcribed by: [facility] Name Value Range Interpretation Code Description Data Renae rce(s) Supporting Document(s ) ID Date Data Source [id number] 04/24/2019 01:11:00 PM EST [facility] [address] [place] [address]Brcpo: [phone] Fax: [phone] Fernandez M.D., Director of PathologySURGICAL PATHOLOGY REPORTPatien t: RADHA CRENSHAWcession #: [id number]: 04/22/2019 18:08Rec eived: 04/23/2019 08:31Reported: 04/24/2019 13:11Clinical Diagnosis and HistoryLymph suly, s/p stem cell transplant 2011.Specimen(s) Received1:Right pleural biopsy - frozen2:Right pleural biopsy3:Right [...] Negative for malignancy. Case CommentCase interpreted at [facility], [address] [place], [place] [address]Electronical ly Signed By: César Barbour MD, proxy [...] x 5.5 x 0.7 cm in aggregate. Superintendent Circus sections are submitted in six casettes.[facility]/04/23/2019A magdiel BURRELL, ([facility])Intraoperative Consult- Frozen Section 1. Right P leural Biopsy:-No evidence of lymphoma.-Favor reactive.-Called to Dr. Lopez in OR.Per Dr . Vahe QuinnNOTE: Intraoperative evaluation/immediate assessment performe d at [facility], [address] [place] [address].Electronic ally Signed By: JUAN C Olsenate/Time Reported: 04/23/2019 15:05:48Amendments for Intraoperative Consult- Frozen Section (04/23/2019) Name Value Range Interpretation Code Description Data Renae rce(s) Supporting Document(s ) ID Date Data Source [id number] 04/24/2019 11:42:00 AM EST Elviecastaliastacie [facility] Name Value Range Interpretation Description Data Sup porting Code Source(s) Document(s ) C Diff, Negative NA [place] DNA,pcr [facility] 027 Strain Presumptive NA [place] Neg [facility] ID Date Data Source [id number] 04/24/2019 07:41:00 AM EST [facility] Patient Name: RADHA CRENSHAW MMRN: [id number] General DiagnosticACCESSION EXAM DATE/TIME PROCEDURE ORDERING PROVIDER [id number] 04/24/2019 07:37 EST XR Chest Portable Jessica BENAVIDES, Bonifacio Valdovinos Auth (Verified)Mosier son For Exam(XR Chest Portable) PostOp CT [...] evalua tion of this patient. Final Dictated: Sahil BENAVIDES, Vahe Gan 1 06/24/18 07:38Signed: Vahe Baxter MD 04/24/19 07:41Transcribed by: [facility] Name Value Range Interpretation Code Description Data Renae rce(s) Supporting Document(s ) ID Date Data Source [id number] 04/24/2019 06:22:00 AM EST [facility] Added by Discern Rule GLB_ADD_GFR_CMP Name Value Range Interpretation Code Description Data Renae rce(s) Supporting Document(s ) eGFR-AA 12 >=60 LO [facility] mL/min/1.[address] eGFR-LORIE 10 >=60 LO [facility] mL/min/1.[address] [place] [address] ID Date Data Source [id number] 04/24/2019 06:22:00 AM EST [facility] Name Value Range Interpretation Description Data Sup porting Code Source(s) Document(s ) Glucose Lvl 149 65-99 HI [place] mg/dL [facility] BUN 27.0 6.0-20.0 HI [place] mg/dL [facility] Creatinine 4.70 0.40-1.0 HI [place] mg/dL 0 [facility] BUN/Creat 5.7 7.0-29.0 LO [place] Ratio ratio [facility] Sodium Lvl 138 136-145 NO [place] mmol/L [facility] Potassium Lvl 4.1 3.5-5.1 NO [place] mmol/L [facility] Chloride 97 98-107 LO [place] mmol/L [facility] CO2 33 23-29 [place] mmol/L [facility] AGAP 8 5-15 NO [place] [facility] Calcium Lvl 9.2 8.6-10.0 NO [place] mg/dL [facility] Total Protein 6.3 6.0-8.3 NO [place] gm/dL [facility] Albumin Lvl 2.6 3.5-5.0 LO [facility] gm/dL [facility] Glob 3.7 2.0-4.5 NO [place] gm/dL [facility] A/G Ratio 0.7 1.0-2.2 LO [facility] ratio [facility] Bili Total 0.7 0.3-1.2 NO [facility] mg/dL [facility] Alk Phos 53 IU/L 38-126 NO [facility] AST 11 IU/L 15-41 [facility] ALT 8 IU/L 7-40 NO [facility] ID Date Data Source [id number] 04/24/2019 06:19:[address] [facility] Name Value Range Interpretation Description Data Sup porting Code Source(s) Document(s ) Magnesium 1.9 mg/dL 1.6-2.6 [facility] ID Date Data Source [id number] 04/24/2019 06:19:[address] [facility] Name Value Range Interpretation Code Description Data Renae rce(s) Supporting Document(s ) LDH 88 IU/L 100-190 [facility] ID Date Data Source [id number] 04/24/2019 05:37:[address] [facility] Name Value Range Interpretation Description Data Sup porting Code Source(s) Document(s ) Neut Auto 78.3 % 50.0-80.0 [facility] Lymph Auto 10.8 % 14.0-44.0 LO [facility] [facility] Auto 10.4 % 0.0-12.0 [facility] Eos Auto 0.2 % 0.0-7.0 [facility] Baso Auto 0.3 % 0.0-3.0 NO [place] [facility] Neut 6.1 2.0-8.4 NO [place] Absolute x10(3)/[facility] Lymph 0.8 0.6-4.8 NO [place] Absolute x10(3)/[facility] [place] 0.8 0.0-1.1 NO [place] Absolute x10(3)/[facility] Eos Absolute 0.0 0.0-0.5 NO [place] x10(3)/[facility] Baso 0.0 0.0-0.3 NO [place] Absolute x10(3)/[facility] ID Date Data Source [id number] 04/24/2019 05:37:00 AM EST [facility] Name Value Range Interpretation Description Data Sup porting Code Source(s) Document(s ) WBC 7.8 4.0-10.5 NO [place] x10(3)/[facility] RBC 3.20 3.80-5.20 LO [place] x10(6)/[facility] Hgb 11.0 11.4-15.1 LO [place] gm/dL [facility] Hct 32.4 % 36.0-46.0 [facility] MCV 101 fL 80-98 [facility] MCH 34.3 pg 26.0-34.0 [facility] MCHC 33.8 32.0-36.0 NO [place] gm/dL [facility] RDW 15.3 % 11.0-15.0 [facility] Platelet 188 150-400 NO [place] x10(3)/[facility] MPV 8.7 fL 8.5-13.0 NO [facility] ID Date Data Source [id number] 04/23/2019 07:17:[address] [facility] Patient Name: RADHA CRENSHAW MMRN: [id number] General DiagnosticACCESSION EXAM DATE/TIME PROCEDURE ORDERING PROVIDER [id number] 04/23/2019 07:02 EST XR Chest Portable Jessica BENAVIDES, Bonifacio Kwon (Verified)Mosier son For Exam(XR Chest Portable) PostOp CT [...] this patient. Final Dictated: Rivka BENAVIDES, Octaviano Tyson 06/23/18 07:14Signed: Octaviano Tineo MD 04/23/19 07:17Transcribed by: [facility] Name Value Range Interpretation Code Description Data Renae rce(s) Supporting Document(s ) ID Date Data Source [id number] 04/23/2019 06:32:[address] [facility] Manual Diff added by Discern Rule GLB_CB C_AUTO_REFLEX Name Value Range Interpretation Description Data Sup porting Code Source(s) Document(s ) Segs 95 % 50-80 HI [facility] Band 1 % 0-2 NO [facility] Neutr 7.1 2.0-8.4 NO [facility] Absolute x10(3)/[facility] Lymph 1 % 14-44 [facility] Monocyte 3 % 0-12 [facility] Eos 0 % 0-7 [facility] Basophil 0 % 0-3 [facility] RBC Morph Normocyt/ [facility] Plt Estimate NO [facility] ID Date Data Source [id number] 04/23/2019 05:11:00 AM EST [facility] Name Value Range Interpretation Description Data Sup porting Code Source(s) Document(s ) Glucose Lvl 166 65-99 [place] mg/dL [facility] BUN 37.0 6.0-20.0 HI [place] mg/dL [facility] Creatinine 6.34 0.40-1.0 HI [place] mg/dL 0 [facility] BUN/Creat 5.8 7.0-29.0 LO [place] Ratio ratio [facility] Sodium Lvl 133 136-145 [facility] Potassium Lvl 6.0 3.5-5.1 CR [place] mmol/L [facility] Critical Value Results Called to PANCHO Simmons by PRASHANT with read back at 04/23/2019 05:11:26 EST. Chloride 94 mmol/L 98-107 [facility] CO2 28 mmol/L 23-29 [facility] AGAP 11 5-15 [facility] Calcium Lvl 8.8 mg/dL 8.6-10.0 [facility] Total Protein 6.7 gm/dL 6.0-8.3 [facility] Albumin Lvl 2.6 gm/dL 3.5-5.0 Health system Glob 4.1 gm/dL 2.0-4.5 [facility] A/G Ratio 0.6 ratio 1.0-2.2 [facility] Bili Total 0.9 mg/dL 0.3-1.2 [facility] Alk Phos 55 IU/L 38-126 NO [facility] AST 11 IU/L 15-41 [facility] ALT 9 IU/L 7-40 NO [facility] ID Date Data Source [id number] 04/23/2019 05:11:00 AM [facility] Added by Discern Rule GLB_ADD_GFR_CMP Name Value Range Interpretation Code Description Data Renae rce(s) Supporting Document(s ) eGFR-AA 8 >=60 [facility] mL/min/1.[address] eGFR-LOIRE 7 >=[address] [facility] mL/min/1.[address] ID Date Data Source [id number] 04/23/2019 04:48:[address] [facility] Name Value Range Interpretation Description Data Sup porting Code Source(s) Document(s ) Magnesium 1.9 mg/dL 1.6-2.6 [facility] ID Date Data Source [id number] 04/23/2019 04:38:00 AM [facility] Name Value Range Interpretation Description Data Sup porting Code Source(s) Document(s ) WBC 7.4 4.0-10.5 NO [place] x10(3)/[facility] RBC 3.45 3.80-5.20 LO [place] x10(6)/[facility] Hgb 12.0 11.4-15.1 NO vance gm/dL [facility] Hct 35.3 % 36.0-46.0 LO [facility] MCV 102 fL 80-98 [facility] MCH 34.7 pg 26.0-34.0 [facility] MCHC 34.0 32.0-36.0 NO Miky gm/dL [facility] RDW 15.0 % 11.0-15.0 NO [facility] Platelet 165 150-400 NO Miky x10(3)/[facility] MPV 8.4 fL 8.5-13.0 [facility] ID Date Data Source [id number] 06/04/2019 12:36:[address] [facility] 1965 [phone] Mycobacteriology - AFB Cultures [...] STAIN TBRFINALNo acid-f ast bacilli seenTest performed by:15MinutesNOW [place], [place] [address]KatzffewStephen Wan M.D.Final Report []Reported Date/Time: 06/04/2019 12:33 E STMYCOBACTERIUM, MISC TBRBIOPSYFI NALNo Mycobacterium species isolatedafter 6 weeks of incubation.ACID-FAST BACILLI ST AIN TBRPRELIMINARYNo acid-fast bacill i seenTest performed by:[employer] [place], [place] [address]FahoboSienna Wan M.D.PRELIMINARY REPORTSPreliminary Report []Reported Date/Time: 05/28/2019 10:45 ESTMYCOBACTERIUM, MISC TBRBIOPSYPRELIMINARYNo Mycobacterium spe cies isolatedafter five weeks incubation.ACID-FAST BACILLI STAIN TBRPRELIMINARYNo acid-fast bacilli seenT est performed by:[employer] [facility] Meng Wan M.D.Preliminary Report []Reported Date/Time: 05/21/2019 09:44 ESTMYCOBACTER IUM, MISC TBRBIOPSYPRELIMINARYNo Mycobacterium species isolatedafter four weeks incubation.ACID-FAST BACILLI STAIN TBRPRELIMINARYNo acid-fast bacilli s eenTest performed by:[employer] [facility] Avinash Wan M.D.Preliminary Report []Reported Date/Time: 05/14/2019 10:04 ESTMYCOBACTE RIUM, MISC TBRBIOPSYPRELIMINARYNo Mycobacterium species isolatedafter three weeks of incubation.ACID-FAST BACILLI ST AIN TBRPRELIMINARYNo acid-fast bacill i seenTest performed by:[employer] [facility] [place] Avinash Wan M.D.Preliminary Report []Reported Date/Time: 05/07/2019 09:23 ESTMYCOBACTE RIUM, MISC TBRBIOPSYPRELIMINARYNo Mycobacterium species isolatedafter two weeks incubation.ACID-FAST BACILLI STAIN TBRPRELIMINARYNo acid-fast bacilli s eenTest performed by:[employer] [facility] [place] Avinash Wan M.D.Preliminary Report []Reported Date/Time: 04/30/2019 09:18 ESTMYCOBACTE RIUM, MISC TBRBIOPSYPRELIMINARYNo Mycobacterium species isolatedafter one week incubation.ACID-FAST BACILLI STAIN TBRPRELIMINARYNo acid-fast bacilli seenT est performed by:[employer] [facility] Hospital[facility] raza M.D.Preliminary Report []Reported Date/Time: 04/23/2019 15:38 ESTMYCOBACTER IUM, MISC PENDINGACID-FAST BACILLI STAIN TBRPRELIMINARYNo acid-fast bacilli seenTest performed by:StowThatsonia Donato [facility] Name Value Range Interpretation Code Description Data Renae rce(s) Supporting Document(s ) ID Date Data Source [id number] 05/21/2019 02:42:00 PM [facility] 1965 [phone] Mycology - Fungal Cultures (send out)PRO CEDURE: Culture,Fungal OURCE: Pleural Cavity BODY SITE: Lung Right COLLECTED DATE/TIME: 04/22/2019 17:30 EST RECEIVED DATE/TIME: 04/23/2019 03:12 ESTSTART DATE/TIME: 04/22/2019 21:33 EST FREE TEXT SOURCE:ORDERING PHYSICIAN: Jessica BENAVIDES, Bonifacio ValdovinosFINAL REPORTSFinal Report []Reported Date/ Time: 05/21/2019 14:40 ESTCULTURE,FUNGUS,MISC TBRPLEURAL CAVITYFINALNo fungi isolated in 28 days.Test performed by:[employer] brad Loyd [facility] [place] Meng Wan M.D.PRELIMINA RY REPORTSPreliminary Report []Reported Date/Time: 05/07/2019 18:03 ESTCULTURE,F UNGUS,MISC TBRPLEURAL CAVITYPRELI MINARYNo growth after 14 days incubationTest performed by:Mobile RoadieJanessa Carrasco [facility] CenterIsidropullman regional hospitalFELI raza M.D.Preliminary Report []Reported Date/ Time: 04/30/2019 11:44 ESTCULTURE,FUNGUS,MISC TBRPLEURAL CAVITYPRELIMINARYNo fungus recovered after 7 daysincubation: culture pending.Test performed by:Mobile RoadieJanessa EwingNorth Alabama Specialty HospitalFELI raza M.D. Name Value Range Interpretation Code Description Data Renae rce(s) Supporting Document(s ) ID Date Data Source [id number] 04/27/2019 09:20:[address] [facility] 1965 [phone] Microbiology - Wound/Misc CulturesPROCED [...] Supporting Document(s ) ID Date Data Source [id number] 04/22/2019 07:12:[address] [facility] Patient Name: RADHA CRENSHAW MMRN: [id number] General DiagnosticACCESSION EXAM DATE/TIME PROCEDURE ORDERING PROVIDER [id number] 04/22/2019 19:08 EST XR Chest Portable Bonifacio Lopez MD Auth (Verified)Mosier son For Exam(XR Chest Portable) PostOp CT [...] Supporting Document(s ) ID Date Data Source [id number] 04/22/2019 06:39:00 AM EST [facility] Name Value Range Interpretation Description Data Sup porting Code Source(s) Document(s ) Glucose Lvl 96 mg/dL 65-99 NO [place] [facility] BUN 28.0 6.0-20.0 HI [place] mg/dL [facility] Creatinine 5.64 0.40-1.0 HI [place] mg/dL 0 [facility] BUN/Creat 5.0 7.0-29.0 LO [place] Ratio ratio [facility] Sodium Lvl 135 136-145 LO [place] mmol/L [facility] Potassium Lvl 4.8 3.5-5.1 NO [place] mmol/L [facility] Chloride 94 98-107 LO [place] mmol/L [facility] CO2 31 23-29 HI [place] mmol/L [facility] AGAP 10 5-15 NO [place] [facility] Calcium Lvl 8.8 8.6-10.0 NO [place] mg/dL [facility] Total Protein 6.3 6.0-8.3 NO [place] gm/dL [facility] Albumin Lvl 2.5 3.5-5.0 LO [place] gm/dL [facility] Glob 3.8 2.0-4.5 NO [place] gm/dL [facility] A/G Ratio 0.7 1.0-2.2 LO [facility] ratio [facility] Bili Total 0.8 0.3-1.2 NO [place] mg/dL [facility] Alk Phos 58 IU/L 38-126 NO [facility] AST 11 IU/L 15-41 [facility] ALT 7 IU/L 7-40 NO [facility] ID Date Data Source [id number] 04/22/2019 06:32:[address] [facility] Added by Discern Rule GLB_ADD_GFR_CMP Name Value Range Interpretation Code Description Data Renae rce(s) Supporting Document(s ) eGFR-AA 9 >=60 [facility] mL/min/1.[address] eGFR-LORIE 8 >=60 LO [facility] mL/min/1.[address] ID Date Data Source [id number] 04/22/2019 06:12:[address] [facility] Name Value Range Interpretation Code Description Data Renae rce(s) Supporting Document(s ) INR 1.1 ratio 0.9-1.2 [facility] Indications INRProphylaxis of venous thromo-embolism: Non-hip surgery..... ..........................1.5 - 2.5 Hip surgery................................. ..2.0 - 3.0Deep Vein Thrombosis or Pulmonary Embolism........2.0 - 3.0Prevention of s ystemic embolism in valvular heart disease, tissue prosthetic heart valvesor acute IN.......................................2.0 - 3.5Prevention of embolism in mechanical heartvalves or recurrent systemic embolism.............3.0 - 4.5 PT 12.6 second(s) 10.2-12.9 NO [facility] ID Date Data Source [id number] 04/22/2019 06:11:[address] [facility] Name Value Range Interpretation Description Data Sup porting Code Source(s) Document(s ) Neut Auto 57.2 % 50.0-80.0 NO [facility] Lymph Auto 23.1 % 14.0-44.0 NO [facility] [place] Auto 10.8 % 0.0-12.0 NO [facility] Eos Auto 8.1 % 0.0-7.0 HI [facility] Baso Auto 0.8 % 0.0-3.0 NO [facility] Neut 3.7 2.0-8.4 NO [place] Absolute x10(3)/[facility] Lymph 1.5 0.6-4.8 NO [place] Absolute x10(3)/[facility] [place] 0.7 0.0-1.1 NO [place] Absolute x10(3)/[facility] Eos Absolute 0.5 0.0-0.5 NO [place] x10(3)/[facility] Baso 0.1 0.0-0.3 NO [place] Absolute x10(3)/[facility] ID Date Data Source [id number] 04/22/2019 06:11:[address] [facility] Name Value Range Interpretation Description Data Sup porting Code Source(s) Document(s ) WBC 6.5 4.0-10.5 NO [place] x10(3)/[facility] RBC 3.21 3.80-5.20 LO [place] x10(6)/[facility] Hgb 11.3 11.4-15.1 [place] gm/dL [facility] Hct 32.5 % 36.0-46.0 LO [facility] MCV 101 fL 80-98 HI [facility] MCH 35.1 pg 26.0-34.0 HI [facility] MCHC 34.7 32.0-36.0 NO [place] gm/dL [facility] RDW 15.4 % 11.0-15.0 [facility] Platelet 152 150-400 NO [place] x10(3)/[facility] MPV 9.0 fL 8.5-13.0 NO [facility] ID Date Data Source [id number] 04/21/2019 09:05:[address] [facility] Added by Discern Rule GLB_ADD_GFR_BMP Name Value Range Interpretation Code Description Data Renae rce(s) Supporting Document(s ) eGFR-AA 12 >=60 LO [facility] mL/min/1.[address] eGFR-LORIE 10 >=60 LO [facility] mL/min/1.[address] ID Date Data Source [id number] 04/21/2019 09:05:[address] [facility] IVT Name Value Range Interpretation Description Data Sup porting Code Source(s) Document(s ) Glucose Lvl 110 65-99 [place] mg/dL [facility] BUN 20.0 6.0-20.0 NO [place] mg/dL [facility] Creatinine 4.60 0.40-1.0 HI [place] mg/dL 0 [facility] BUN/Creat 4.3 7.0-29.0 LO [place] Ratio ratio [facility] Sodium Lvl 136 136-145 NO [place] mmol/L [facility] Potassium Lvl 4.5 3.5-5.1 NO [place] mmol/L [facility] Chloride 95 98-107 LO [place] mmol/L [facility] CO2 31 23-29 HI [place] mmol/L [facility] AGAP 10 5-15 NO [facility] Calcium Lvl 8.8 8.6-10.0 NO [place] mg/dL [facility] ID Date Data Source [id number] 04/21/2019 08:29:00 AM EST [place] [facility] Name Value Range Interpretation Description Data Sup porting Code Source(s) Document(s ) Neut Auto 64.0 % 50.0-80.0 NO [facility] Lymph Auto 17.9 % 14.0-44.0 NO [facility] [place] Auto 10.7 % 0.0-12.0 NO [facility] Eos Auto 6.4 % 0.0-7.0 NO [facility] Baso Auto 1.0 % 0.0-3.0 NO [facility] Neut 4.0 2.0-8.4 NO [place] Absolute x10(3)/[facility] Lymph 1.1 0.6-4.8 NO [place] Absolute x10(3)/[facility] [place] 0.7 0.0-1.1 NO [place] Absolute x10(3)/[facility] Eos Absolute 0.4 0.0-0.5 NO [place] x10(3)/[facility] Baso 0.1 0.0-0.3 NO [place] Absolute x10(3)/[facility] ID Date Data Source [id number] 04/21/2019 08:29:[address] [facility] IVT Name Value Range Interpretation Description Data Sup porting Code Source(s) Document(s ) WBC 6.3 4.0-10.5 NO [place] x10(3)/[facility] RBC 3.38 3.80-5.20 LO [place] x10(6)/[facility] Hgb 11.7 11.4-15.1 NO [place] gm/dL [facility] Hct 33.9 % 36.0-46.0 [facility] MCV 100 fL 80-98 [facility] MCH 34.6 pg 26.0-34.0 [facility] MCHC 34.5 32.0-36.0 NO [place] gm/dL [facility] RDW 15.5 % 11.0-15.0 [facility] Platelet 155 150-400 NO vance x10(3)/[facility] MPV 8.5 fL 8.5-13.0 [facility] ID Date Data Source [id number] 04/20/2019 03:33:[address] [facility] please draw with HD todayIVT Name Value Range Interpretation Code Description Data Renae rce(s) Supporting Document(s ) ABSC Gel NO [facility] ID Date Data Source [id number] 04/20/2019 03:09:[address] [facility] please draw with HD todayIVT Name Value Range Interpretation Code Description Data Renae rce(s) Supporting Document(s ) ABO/Rh UN [facility] ID Date Data Source [id number] 04/20/2019 02:06:[address] [facility] please draw with HD todayIVT Name Value Range Interpretation Code Description Data Renae rce(s) Supporting Document(s ) INR 1.2 ratio 0.9-1.2 NO [facility] Indications INRProphylaxis of venous thromo-embolism: Non-hip surgery..... ..........................1.5 - 2.5 Hip surgery................................. ..2.0 - 3.0Deep Vein Thrombosis or Pulmonary Embolism........2.0 - 3.0Prevention of s ystemic embolism in valvular heart disease, tissue prosthetic heart valvesor acute IN.......................................2.0 - 3.5Prevention of embolism in mechanical heartvalves or recurrent systemic embolism.............3.0 - 4.5 PT 13.4 second(s) 10.2-12.9 [facility] ID Date Data Source [id number] 04/20/2019 07:58:[address] [facility] Patient Name: RADHA CRENSHAW MMRN: [id number] General DiagnosticACCESSION EXAM DATE/TIME PROCEDURE ORDERING PROVIDER [id number] 04/20/2019 07:16 EDT XR Chest Portable Travis [...] Supporting Document(s ) ID Date Data Source [id number] 04/20/2019 07:35:00 AM EDT [facility] Name Value Range Interpretation Description Data Sup porting Code Source(s) Document(s ) Glucose Lvl 92 mg/dL 65-99 NO [place] [facility] BUN 20.0 6.0-20.0 NO [place] mg/dL [facility] Creatinine 4.70 0.40-1.0 HI [place] mg/dL 0 [facility] BUN/Creat 4.3 7.0-29.0 LO [place] Ratio ratio [facility] Sodium Lvl 137 136-145 NO [place] mmol/L [facility] Potassium Lvl 4.0 3.5-5.1 NO [place] mmol/L [facility] Chloride 97 98-107 LO [place] mmol/L [facility] CO2 32 23-29 [place] mmol/L [facility] AGAP 8 5-15 NO [place] [facility] Calcium Lvl 8.4 8.6-10.0 LO [place] mg/dL [facility] Total Protein 6.3 6.0-8.3 NO [place] gm/dL [facility] Albumin Lvl 2.4 3.5-5.0 LO [place] gm/dL [facility] Glob 3.9 2.0-4.5 NO [place] gm/dL [facility] A/G Ratio 0.6 1.0-2.2 [place] ratio [facility] Bili Total 0.8 0.3-1.2 NO [place] mg/dL [facility] Alk Phos 57 IU/L 38-126 NO [facility] AST 9 IU/L 15-41 [facility] ALT 8 IU/L 7-40 NO [facility] ID Date Data Source [id number] 04/20/2019 07:31:[address] [facility] Added by Discern Rule GLB_ADD_GFR_CMP Name Value Range Interpretation Code Description Data Renae rce(s) Supporting Document(s ) eGFR-AA 12 >=60 LO [facility] mL/min/1.[address] eGFR-LORIE 10 >=60 LO [facility] mL/min/1.[address] ID Date Data Source [id number] 04/20/2019 06:42:[address] [facility] Name Value Range Interpretation Description Data Sup porting Code Source(s) Document(s ) Neut Auto 64.0 % 50.0-80.0 NO [facility] Lymph Auto 20.2 % 14.0-44.0 NO [facility] [place] Auto 11.5 % 0.0-12.0 NO [facility] Eos Auto 3.8 % 0.0-7.0 [facility] Auto 0.5 % 0.0-3.0 NO [facility] Neut 4.4 2.0-8.4 NO [place] Absolute x10(3)/[facility] Lymph 1.4 0.6-4.8 NO [place] Absolute x10(3)/[facility] [place] 0.8 0.0-1.1 NO [place] Absolute x10(3)/[facility] Eos Absolute 0.3 0.0-0.5 NO [place] x10(3)/[facility] Baso 0.0 0.0-0.3 NO [place] Absolute x10(3)/[facility] ID Date Data Source [id number] 04/20/2019 06:42:00 AM [facility] Name Value Range Interpretation Description Data Sup porting Code Source(s) Document(s ) WBC 6.9 4.0-10.5 NO [place] x10(3)/[facility] RBC 3.33 3.80-5.20 LO [place] x10(6)/[facility] Hgb 11.5 11.4-15.1 NO [place] gm/dL [facility] Hct 33.9 % 36.0-46.0 [facility] MCV 102 fL 80-98 [facility] MCH 34.4 pg 26.0-34.0 [facility] MCHC 33.8 32.0-36.0 NO [place] gm/dL [facility] RDW 15.4 % 11.0-15.0 [facility] Platelet 143 150-400 LO [place] x10(3)/[facility] MPV 8.8 fL 8.5-13.0 [facility] ID Date Data Source [id number] 04/24/2019 08:48:[address] [facility] 1965 [phone] Microbiology - Wound/Misc CulturesPROCED [...] Supporting Document(s ) ID Date Data Source [id number] 04/19/2019 01:05:[address] [facility] Name Value Range Interpretation Code Description Data Renae rce(s) Supporting Document(s ) pH BF NO [facility] The reference range and other method per formance specifications have not been established for this body fluid. The feliciano t result must be integrated into the clinical context for interpretation. pH. BF Type NA [facility] ID Date Data Source [id number] 04/19/2019 12:43:[address] [facility] Name Value Range Interpretation Description Data Sup porting Code Source(s) Document(s ) Color BF 1 NO [facility] Appear BF 1 Clear AB [facility] WBC BF 1 296 0-200 HI [place] cells/[facility] RBC BF 1 76121 0-200 HI [place] cells/[facility] BF Type Tube 1 [facility] BF Laterality [facility] ID Date Data Source [id number] 04/19/2019 12:35:[address] [facility] Name Value Range Interpretation Code Description Data Renae rce(s) Supporting Document(s ) LDH BF 197 IU/L [facility] A specific reference range is not availa ble for this analyte. The following information is provided to aid in interp retation of results. Correlation with clinical findings is recommended.Pleural fluidAccording to the traditional Light's Criteria Rule, if at least one of the fo [facility] systemwing three criteria (ie, component tests of the [...] g/dl is sugges tive of a transudate.Reference: http://www.upMetrilodate.com/contents/fqcmqmzqxf-zqtvopihyf-sy-e-giiwkvb-zpuqebib-in- adult c-weivhht-cthdndcJhtvglxtlh fluidThe asc itic fluid/serum (AF/S) ratio of [...] the upper limit of normal for serumReference: http://www.[employer]/contents/evaluat mpd-pa-nqbxrk-with-ascitesPericardial FluidGeneral chemistry tests have not be en standardized for pericardial fluid analysis. Thus, reference ranges/ clinic al cutoff values have not been established. Results should be correlated clinically. LDH. BF Type NA [facility] BF Laterality [facility] ID Date Data Source [id number] 04/19/2019 12:31:[address] [facility] Name Value Range Interpretation Description Data Sup porting Code Source(s) Document(s ) Protein BF 3.3 gm/dL [facility] [employer] A specific reference range is not availa ble for this analyte. The following information is provided to aid in interp retation of results. Correlation with clinical findings is recommended.Pleural fluidAccording to the traditional Light's Criteria Rule, if at least one of the fo idalmiswing three criteria (ie, component tests of the [...] g/dl is sugges tive of a transudate.Reference: http://www.[employer]/contents/mlhgsvtsci-biciyufftk-us-k-ffgfhum-cwujtvky-in- adult c-njqxjjj-qvxnukqUiodkibxty fluidAscitic fluid can be classified as an [...] mg/dL (2.8 mmol/L) LDH greater than the [facility] limit of normal for serumReference: http://www.[employer]/contents/evaluat idt-ii-xdepbn-with-ascitesPericardial FluidGeneral chemistry tests have not be en standardized for pericardial fluid analysis. Thus, reference ranges/ clinic al cutoff values have not been established. Results should be correlated clinically. Protein BF Type NA [facility] BF Laterality NA [facility] ID Date Data Source [id number] 04/19/2019 12:31:[address] [facility] Name Value Range Interpretation Code Description Data Supporting Source(s) Document(s ) Glucose BF 52 mg/dL [facility] [employer] A specific reference range is not availa [...] similar to that of blood g lucose.Reference: http://www.[employer]/contents/wnjrhcecze-vuvuybpbit-qy-e-belqqdf-rcpakbxt-in- vxdnnx-itjawqp-sltwdatOungjnux al fluid The ascitic fluid glucose mannie [...] the upper limit of normal for serumReference: http://www.[employer]com/contents/evaluat iaw-gg-sndaaa-with-ascitesPericardial FluidGeneral chemistry tests have not been standardized for pericardi al fluid analysis. Thus, reference ranges/ clinical cutoff values have not been established. Results should be correlated clinically. Glucose BF Type NA [facility] BF Laterality NA [facility] ID Date Data Source [id number] 04/19/2019 08:11:[address] [facility] Added by Discern Rule GLB_ADD_GFR_BMP Name Value Range Interpretation Code Description Data Renae rce(s) Supporting Document(s ) eGFR-AA 9 >=60 LO [facility] mL/min/1.[address] eGFR-LORIE 7 >=60 LO [facility] mL/min/1.[address] ID Date Data Source [id number] 04/19/2019 08:11:[address] [facility] Name Value Range Interpretation Description Data Sup porting Code Source(s) Document(s ) Glucose Lvl 89 mg/dL 65-99 NO [facility] BUN 27.0 6.0-20.0 [place] mg/dL [facility] Creatinine 5.92 0.40-1.0 HI [place] mg/dL 0 [facility] BUN/Creat 4.6 7.0-29.0 [place] Ratio ratio [facility] Sodium Lvl 135 136-145 [place] mmol/L [facility] Potassium Lvl 4.4 3.5-5.1 NO [place] mmol/L [facility] Chloride 94 98-107 LO [place] mmol/L [facility] CO2 31 23-29 [place] mmol/L [facility] AGAP 10 5-15 NO [facility] Calcium Lvl 8.3 8.6-10.0 LO [place] mg/dL [facility] ID Date Data Source [id number] 04/19/2019 07:55:00 AM EDT [facility] Name Value Range Interpretation Description Data Sup porting Code Source(s) Document(s ) Neut Auto 70.3 % 50.0-80.0 NO [facility] Lymph Auto 13.0 % 14.0-44.0 LO [facility] [place] Auto 10.0 % 0.0-12.0 NO [facility] Eos Auto 5.3 % 0.0-7.0 NO [facility] Baso Auto 1.4 % 0.0-3.0 NO [facility] Neut 5.4 2.0-8.4 NO [facility] Absolute x10(3)/[facility] Lymph 1.0 0.6-4.8 NO [place] Absolute x10(3)/[facility] [place] 0.8 0.0-1.1 NO [facility] Absolute x10(3)/[facility] Eos Absolute 0.4 0.0-0.5 NO [facility] x10(3)/[facility] Baso 0.1 0.0-0.3 NO [facility] Absolute x10(3)/[facility] ID Date Data Source [id number] 04/19/2019 07:55:[address] [facility] Name Value Range Interpretation Description Data Sup porting Code Source(s) Document(s ) WBC 7.7 4.0-10.5 NO [facility] x10(3)/[facility] RBC 3.52 3.80-5.20 LO [facility] x10(6)/[facility] Hgb 12.0 11.4-15.1 NO [place] gm/dL [facility] Hct 36.0 % 36.0-46.0 NO [facility] MCV 102 fL 80-98 [facility] MCH 34.0 pg 26.0-34.0 NO [facility] MCHC 33.2 32.0-36.0 NO [place] gm/dL [facility] RDW 15.6 % 11.0-15.0 [facility] Platelet 160 150-400 NO [facility] x10(3)/[facility] MPV 8.1 fL 8.5-13.0 [facility] ID Date Data Source [id number] 04/19/2019 07:26:[address] [facility] Patient Name: RADHA CRENSHAW MMRN: [id number] General DiagnosticACCESSION EXAM DATE/TIME PROCEDURE ORDERING PROVIDER [id number] 04/19/2019 07:08 EDT XR Chest Portable Jessica [...] Supporting Document(s ) ID Date Data Source [id number] 04/18/2019 05:50:[address] [facility] Patient Name: RADHA CRENSHAW MMRN: [id number] General DiagnosticACCESSION EXAM DATE/TIME PROCEDURE ORDERING PROVIDER [id number] 04/18/2019 17:47 XR Chest Portable Reilly Yip [...] evalua tion of this patient. Final Dictated: Celso BENAVIDES, Dorothy 1 17:48Signed: Dorothy Houston MD 04/18/19 17:50Transcribed by: JANENE Name Value Range Interpretation Code Description Data Renae rce(s) Supporting Document(s ) ID Date Data Source [id number] 04/18/2019 06:23:00 AM EDT Miky Edgar [facility] Name Value Range Interpretation Description Data Sup porting Code Source(s) Document(s ) Gl[facility] Lvl 78 mg[facility]dL 65-99 [facility] BUN 19.0 6.0-20.0 NO [facility] mg/dL [facility] Creatinine 4.61 0.40-1.0 HI [place] mg/dL 0 [facility] BUN/Creat 4.1 7.0-29.0 LO [place] Ratio ratio [facility] Sodium Lvl 136 136-145 NO [place] mmol/L [facility] Potassium Lvl 3.4 3.5-5.1 LO [place] mmol/L [facility] Chloride 94 98-107 LO [facility] mmol/L [facility] CO2 33 23-29 [place] mmol/L [facility] AGAP 10 5-15 NO [facility] Calcium Lvl 8.1 8.6-10.0 LO [place] mg/dL [facility] Total Protein 6.5 6.0-8.3 NO [place] gm/dL [facility] Albumin Lvl 2.6 3.5-5.0 LO [place] gm/dL [facility] Glob 3.9 2.0-4.5 NO [place] gm/dL [facility] A/G Ratio 0.7 1.0-2.2 LO [place] ratio [facility] Bili Total 0.8 0.3-1.2 NO [place] mg/dL [facility] Alk Phos 56 IU/L 38-126 [facility] AST 12 IU/L 15-41 [facility] ALT 8 IU/L 7-40 NO [facility] ID Date Data Source [id number] 04/18/2019 05:55:[address] [facility] Name Value Range Interpretation Description Data Sup porting Code Source(s) Document(s ) Neut Auto 62.6 % 50.0-80.0 NO [facility] Lymph Auto 16.6 % 14.0-44.0 NO [facility] [place] Auto 12.0 % 0.0-12.0 NO [facility] Eos Auto 8.1 % 0.0-7.0 HI [facility] Baso Auto 0.7 % 0.0-3.0 NO [facility] Neut 4.1 2.0-8.4 NO [facility] Absolute x10(3)/[facility] Lymph 1.1 0.6-4.8 NO [facility] Absolute x10(3)/[facility] [place] 0.8 0.0-1.1 NO [facility] Absolute x10(3)/[facility] Eos Absolute 0.5 0.0-0.5 NO [facility] x10(3)/[facility] Baso 0.0 0.0-0.3 NO [facility] Absolute x10(3)/[facility] ID Date Data Source [id number] 04/18/2019 05:55:[address] [facility] Name Value Range Interpretation Description Data Sup porting Code Source(s) Document(s ) WBC 6.6 4.0-10.5 NO [place] x10(3)/[facility] RBC 3.23 3.80-5.20 LO [facility] x10(6)/[facility] Hgb 11.2 11.4-15.1 LO [place] gm/dL [facility] Hct 32.9 % 36.0-46.0 [facility] MCV 102 fL 80-98 [facility] MCH 34.9 pg 26.0-34.0 [facility] MCHC 34.2 32.0-36.0 NO [place] gm/dL [facility] RDW 15.3 % 11.0-15.0 [facility] Platelet 145 150-400 LO [facility] x10(3)/[facility] MPV 8.2 fL 8.5-13.0 [facility] ID Date Data Source [id number] 04/18/2019 06:19:[address] [facility] Added by Discern Rule GLB_ADD_GFR_CMP Name Value Range Interpretation Code Description Data Renae rce(s) Supporting Document(s ) eGFR-AA 12 >=60 LO [facility] mL/min/1.[address] eGFR-LORIE 10 >=60 LO [facility] mL/min/1.[address] ID Date Data Source [id number] 04/18/2019 03:55:[address] [facility] Patient Name: RADHA CRENSHAW MMRN: [id number] Computed TomographyACCESSION EXAM DATE/TIME PROCEDURE ORDERING PROVIDER [id number] 04/18/2019 15:18 CT Chest Tube Jessica BENAVIDES, Bonifacio Kwon (Verified) EDT InsertReason For Exam(CT Chest Tube [...] 11-bl aaron scalpel.Under CT guidance, a 5 [place] Yueh catheter/needle was advanced into t he patient's right pleural effusion using a right anterolateral approach. The inner needle was removed and the Yueh catheter was exchanged over an Amplatz wire for an 8 [place] dilator. The tract was serially dilated to 12 [place] with additional dil ators. A 12 [place] dilator was exchanged over the Amplatz wire for a 12 [place] pigtail drainage catheter. The loop of the [...] the procedure well and was transferred to [facility] recovery area in stable condition.IMPRESSION:Successful computed tomography guided right chest tube placement with drainage of 1200 cc of serosanguine ous pleural fluid.Post procedure images demonstrate air within the right pleural cavity and significant decrease in size of patient's right pleural effusion. Findin gs may represent a trapped right lung. Continued follow-up with serial chest x- rays are advised.Wet reading communicated via [employer] (with confirmation of receipt) to Bonifacio Lopez MD on 04/18/2019 at 3:54 PM.Thank you for allowing us to particip ate in the evaluation of this patient. Final Dictated: Theodora BENAVIDES, Reilly 04/18/19 15:41Signed: Theodora BENAVIDES, Reilly 04/18/19 15:55Transcribed by: VL Name Value Range Interpretation Code Description Data Renae rce(s) Supporting Document(s ) ID Date Data Source [id number] 04/17/2019 02:02:[address] [facility] Name Value Range Interpretation Code Description Data Renae rce(s) Supporting Document(s ) ABSC Gel NO [facility] ID Date Data Source [id number] 04/17/2019 01:43:[address] [facility] Name Value Range Interpretation Description Data Sup porting Code Source(s) Document(s ) Glucose Lvl 104 65-99 HI [place] mg/dL [facility] BUN 14.0 6.0-20.0 NO [place] mg/dL [facility] Creatinine 3.76 0.40-1.0 HI [facility] mg/dL 0 [facility] BUN/Creat 3.7 7.0-29.0 LO [place] Ratio ratio [facility] Sodium Lvl 136 136-145 NO [place] mmol/L [facility] Potassium Lvl 3.3 3.5-5.1 LO [facility] mmol/L [facility] Chloride 93 98-107 LO [facility] mmol/L [facility] CO2 30 23-29 HI [facility] mmol/L [facility] AGAP 12 5-15 NO [place] [facility] Calcium Lvl 8.0 8.6-10.0 LO [place] mg/dL [facility] Total Protein 7.3 6.0-8.3 NO [place] gm/dL [facility] Albumin Lvl 3.0 3.5-5.0 LO [place] gm/dL [facility] Glob 4.3 2.0-4.5 NO [place] gm/dL [facility] A/G Ratio 0.7 1.0-2.2 LO [facility] ratio [facility] Bili Total 1.1 0.3-1.2 NO [place] mg/dL [facility] Alk Phos 67 IU/L 38-126 NO [facility] AST 14 IU/L 15-41 LO [facility] ALT 9 IU/L 7-40 NO [facility] ID Date Data Source [id number] 04/17/2019 01:37:[address] [facility] Added by Discern Rule GLB_ADD_GFR_CMP Name Value Range Interpretation Code Description Data Renae rce(s) Supporting Document(s ) eGFR-AA 15 >=60 LO [facility] mL/min/1.[address] eGFR-LORIE 12 >=60 LO [facility] mL/min/1.[address] ID Date Data Source [id number] 04/17/2019 01:35:[address] [facility] Name Value Range Interpretation Code Description Data Renae rce(s) Supporting Document(s ) ABO/Rh UN [facility] ID Date Data Source [id number] 04/17/2019 01:33:[address] [facility] Name Value Range Interpretation Code Description Data Renae rce(s) Supporting Document(s ) INR 1.2 ratio 0.9-1.2 NO [facility] Indications INRProphylaxis of venous thromo-embolism: Non-hip surgery..... ..........................1.5 - 2.5 Hip surgery................................. ..2.0 - 3.0Deep Vein Thrombosis or Pulmonary Embolism........2.0 - 3.0Prevention of s ystemic embolism in valvular heart disease, tissue prosthetic heart valvesor acute IN.......................................2.0 - 3.5Prevention of embolism in mechanical heartvalves or recurrent systemic embolism.............3.0 - 4.5 PT 14.0 second(s) 10.2-12.9 [facility] ID Date Data Source [id number] 04/17/2019 01:22:[address] [facility] Name Value Range Interpretation Description Data Sup porting Code Source(s) Document(s ) Neut Auto 76.2 % 50.0-80.0 NO [facility] Lymph Auto 9.3 % 14.0-44.0 LO [facility] [place] Auto 9.0 % 0.0-12.0 [facility] Eos Auto 5.0 % 0.0-7.0 NO [facility] Baso Auto 0.5 % 0.0-3.0 NO [facility] Neut 7.3 2.0-8.4 NO [facility] Absolute x10(3)/[facility] Lymph 0.9 0.6-4.8 NO [facility] Absolute x10(3)/[facility] [place] 0.9 0.0-1.1 NO [facility] Absolute x10(3)/[facility] Eos Absolute 0.5 0.0-0.5 NO [facility] x10(3)/[facility] Baso 0.1 0.0-0.3 NO [facility] Absolute x10(3)/[facility] ID Date Data Source [id number] 04/17/2019 01:22:[address] [facility] Pt has PANCHO pruitt Draw04/17/2019 13:06:50 EDT MM/AL Name Value Range Interpretation Description Data Sup porting Code Source(s) Document(s ) WBC 9.6 4.0-10.5 NO [facility] x10(3)/[facility] RBC 3.56 3.80-5.20 LO [facility] x10(6)/[facility] Hgb 12.2 11.4-15.1 NO [place] gm/dL [facility] Hct 35.8 % 36.0-46.0 [facility] MCV 101 fL 80-98 [facility] MCH 34.2 pg 26.0-34.0 [facility] MCHC 34.0 32.0-36.0 NO [place] gm/dL [facility] RDW 15.2 % 11.0-15.0 [facility] Platelet 163 150-400 NO [facility] x10(3)/[facility] MPV 7.9 fL 8.5-13.0 [facility] ID Date Data Source [id number] 04/17/2019 02:14:[address] [facility] Patient Name: RADHA CRENSHAW MMRN: [id number] General DiagnosticACCESSION EXAM DATE/TIME PROCEDURE ORDERING PROVIDER [id number] 04/17/2019 13:57 XR Chest 2 Views Amarteifio MD, Auth (Verified) EDT Santos Boone For Exam [...] the evaluation of this patient. Final Dictated: Juna Yen MD 04/17/19 14:11Signed: Juan Lind MD 04/17/19 14:14Transcribed by: ADM Name Value Range Interpretation Code Description Data Renae rce(s) Supporting Document(s ) ID Date Data Source [id number] 04/16/2019 12:11:[address] [facility] Patient Name: RADHA CRENSHAW MMRN: [id number] General DiagnosticACCESSION EXAM DATE/TIME PROCEDURE ORDERING PROVIDER [id number] 04/16/2019 09:49 XR Chest 2 Views Bonifacio Lopez MD (Verified) EDTReportPROCEDURE: Radiograph Chest 2 ViewsCLINICAL HISTORY [...] Final * Dictated: Mustapha BENAVIDES, Karen Ivey 04/16/19 12:09Signed: Karen Luciano MD 04/16/19 12:11Transcribed by: [facility] Name Value Range Interpretation Code Description Data Renae rce(s) Supporting Document(s ) ID Date Data Source [id number] 04/07/2019 07:04:[address] [facility] Name Value Range Interpretation Description Data Sup porting Code Source(s) Document(s ) Neut Auto 64.2 % 50.0-80.0 NO [facility] Lymph Auto 18.9 % 14.0-44.0 NO [facility] [place] Auto 10.3 % 0.0-12.0 NO [facility] Eos Auto 6.2 % 0.0-7.0 NO [facility] Baso Auto 0.4 % 0.0-3.0 NO [facility] Neut 4.1 2.0-8.4 NO [facility] Absolute x10(3)/[facility] Lymph 1.2 0.6-4.8 NO [facility] Absolute x10(3)/[facility] [place] 0.7 0.0-1.1 NO [facility] Absolute x10(3)/[facility] Eos Absolute 0.4 0.0-0.5 NO [facility] x10(3)/[facility] Baso 0.0 0.0-0.3 NO [facility] Absolute x10(3)/[facility] ID Date Data Source [id number] 04/07/2019 07:04:[address] [facility] Name Value Range Interpretation Description Data Sup porting Code Source(s) Document(s ) WBC 6.4 4.0-10.5 NO [place] x10(3)/[facility] RBC 3.53 3.80-5.20 LO [facility] x10(6)/[facility] Hgb 12.1 11.4-15.1 NO [place] gm/dL [facility] Hct 36.4 % 36.0-46.0 NO [facility] MCV 103 fL 80-98 HI [facility] MCH 34.4 pg 26.0-34.0 HI [facility] MCHC 33.4 32.0-36.0 NO [place] gm/dL [facility] RDW 15.1 % 11.0-15.0 [facility] Platelet 144 150-400 LO [facility] x10(3)/[facility] MPV 8.3 fL 8.5-13.0 [facility] ID Date Data Source [id number] 04/07/2019 06:59:[address] [facility] Added by Discern Rule GLB_ADD_GFR_BMP Name Value Range Interpretation Code Description Data Renae rce(s) Supporting Document(s ) eGFR-AA 8 >=60 [facility] mL/min/1.7 - [address] eGFR-LORIE 7 >=60 LO [facility] mL/min/1.7 - [address] ID Date Data Source [id number] 04/07/2019 06:59:[address] [facility] Name Value Range Interpretation Description Data Sup porting Code Source(s) Document(s ) Glucose Lvl 142 65-99 HI [place] mg/dL [facility] BUN 49.0 6.0-20.0 HI [place] mg/dL [facility] Creatinine 6.45 0.40-1.0 HI [place] mg/dL 0 [facility] BUN/Creat 7.6 7.0-29.0 NO [place] Ratio ratio [facility] Sodium Lvl 136 136-145 NO [place] mmol/L [facility] Potassium Lvl 4.3 3.5-5.1 NO [place] mmol/L [facility] Chloride 96 98-107 LO [place] mmol/L [facility] CO2 30 23-29 HI [place] mmol/L [facility] AGAP 10 5-15 NO [place] [facility] Calcium Lvl 8.2 8.6-10.0 LO [place] mg/dL [facility] ID Date Data Source [id number] 04/06/2019 06:45:[address] [facility] Name Value Range Interpretation Description Data Sup porting Code Source(s) Document(s ) [place] 19.3 5.0-40.0 NO [place] mcg/mL [facility] ID Date Data Source [id number] 04/06/2019 06:33:[address] [facility] Name Value Range Interpretation Description Data Sup porting Code Source(s) Document(s ) Glucose Lvl 151 65-99 [place] mg/dL [facility] BUN 29.0 6.0-20.0 HI [place] mg/dL [facility] Creatinine 5.36 0.40-1.0 HI [place] mg/dL 0 [facility] BUN/Creat 5.4 7.0-29.0 LO [place] Ratio ratio [facility] Sodium Lvl 136 136-145 NO [place] mmol/L [facility] Potassium Lvl 4.3 3.5-5.1 NO [place] mmol/L [facility] Chloride 93 98-107 LO [place] mmol/L [facility] CO2 31 23-29 [place] mmol/L [facility] AGAP 12 5-15 NO [facility] Calcium Lvl 8.9 8.6-10.0 NO [place] mg/dL [facility] Total Protein 7.3 6.0-8.3 NO [place] gm/dL [facility] Albumin Lvl 3.3 3.5-5.0 LO [place] gm/dL [facility] Glob 4.0 2.0-4.5 NO [place] gm/dL [facility] A/G Ratio 0.8 1.0-2.2 LO [facility] ratio [facility] Bili Total 0.9 0.3-1.2 NO [place] mg/dL [facility] Alk Phos 50 IU/L 38-126 NO [facility] AST 10 IU/L 15-41 LO [facility] ALT 8 IU/L 7-40 NO [facility] ID Date Data Source [id number] 04/06/2019 06:29:[address] [facility] Added by Discern Rule GLB_ADD_GFR_CMP Name Value Range Interpretation Code Description Data Renae rce(s) Supporting Document(s ) eGFR-AA 10 >=60 LO [facility] mL/min/1.[address] [place] [address] eGFR-LORIE 8 >=60 LO [facility] mL/min/1.[address] ID Date Data Source [id number] 04/06/2019 06:19:[address] [facility] Name Value Range Interpretation Description Data Sup porting Code Source(s) Document(s ) Neut Auto 86.5 % 50.0-80.0 [facility] Lymph Auto 6.4 % 14.0-44.0 LO [facility] [place] Auto 6.9 % 0.0-12.0 NO [facility] Eos Auto 0.1 % 0.0-7.0 NO [facility] Baso Auto 0.1 % 0.0-3.0 NO [facility] Neut 8.8 2.0-8.4 HI [place] Absolute x10(3)/[facility] Lymph 0.7 0.6-4.8 NO [place] Absolute x10(3)/[facility] [place] 0.7 0.0-1.1 NO [facility] Absolute x10(3)/[facility] Eos Absolute 0.0 0.0-0.5 NO [place] x10(3)/[facility] Baso 0.0 0.0-0.3 NO [place] Absolute x10(3)/[facility] ID Date Data Source [id number] 04/06/2019 06:19:[address] [facility] Name Value Range Interpretation Description Data Sup porting Code Source(s) Document(s ) WBC 10.2 4.0-10.5 NO [facility] x10(3)/[facility] RBC 3.65 3.80-5.20 LO [place] x10(6)/[facility] Hgb 12.8 11.4-15.1 [place] gm/dL [facility] Hct 36.8 % 36.0-46.0 NO [facility] MCV 101 fL 80-98 HI [facility] MCH 35.1 pg 26.0-34.0 HI [facility] MCHC 34.8 32.0-36.0 [place] gm/dL [facility] RDW 15.0 % 11.0-15.0 NO [facility] Platelet 155 150-400 NO [facility] x10(3)/[facility] MPV 8.7 fL 8.5-13.0 NO [facility] ID Date Data Source [id number] 04/06/2019 02:14:[address] [facility] Name Value Range Interpretation Code Description Data Renae rce(s) Supporting Document(s ) BNP 4724 pg/mL <=100 [facility] ID Date Data Source [id number] 04/06/2019 01:15:[address] [facility] Name Value Range Interpretation Description Data Sup porting Code Source(s) Document(s ) D-Dimer 2094.0 0.0-230.0 [facility] ng/ml D-DU [facility] If the result is below 230 (ng/mL DDU) D VT/PE is highly unlikely based on clinical studies and a test validation at [facility]. This is an exclusionary test. A normal D-dimer does not exclude the possibility of DIC. If the result is greater than 230 (ng/mL DDU) DVT/PE or DIC may be present . ID Date Data Source [id number] 04/06/2019 01:12:[address] [facility] Name Value Range Interpretation Code Description Data Supporting Source(s) Document(s ) Troponin- <0.03 <=0.05 NO [facility] I ng/mL [facility] ID Date Data Source [id number] 04/09/2019 08:24:[address] [facility] Name Value Range Interpretation Code Description Data Renae rce(s) Supporting Document(s ) FISH NA [facility] CML/ALL [facility] Specimen Type: Peripheral BloodClinical Indication: FISH study for oncologyRESULT :NEGATIVE FISH RESULT FOR BCR-ABL1 FUSIO N, t(9;22).INTERPRETATION :This fluorescence in-situ hybridization (FISH) assay, usin gprobes for BCR-ABL1 fusion ([facility]), showed anormal pattern of hy bridization in [...] analytical performance characteristics have been determined by [facility] MD. It has not beencleared or approved by the U.S. Food and DrugAdmini stration. This assay has been validated pursuant [facility] CLIA regulations and is u sed for clinical purposes. Fouzia Amador MD, PhD, [facility] Electronic Signature: O ct 2018 4:44PM ID Date Data Source [id number] 04/08/2019 02:47:[address] [facility] Name Value Range Interpretation Code Description Data Renae rce(s) Supporting Document(s ) Report Type NA [facility] Pathologist NA [facility] Diane Vargas M.D.,Associate Direct or of Hematopathology,Board Certified in Anatomic Pathology,Clinical Pathology, a nd HematopathologyFor questions contact HematopathologyClient Service at (electronic signature) Report Notes [employer] *This test was developed and its perform ancecharacteristics determined by [facility]. It has not been cleared or approved bythe U.S. Food and Drug Administration.Performance characteristi cs refer to theanalytical performance of the test. Flow Cyto [facility] Smear review show neutrophilia with occa ssionalmyelocytes. Myeloid gated cells show diminishedexpression of CD10. The lympho cyte morphology andimmunophenotype are within normal limits. Blastgated cells a re within normal limits. Diagnosis Jono/Lymp NA Miky Jeffers [facility] Peripheral blood with no morphologic jyothi mmunophenotypic evidence of a lymphoproliferativedisorder or presence of blasts. Comment Jono/Lymp NA [facility] Bcr/abl results pending. Report will be forwarded.Please note that these results are bestinterpreted in conjunction with othe r clinicalinformation.Test performed by:[place], [place] [address]PbuutoraStephen Wan M.D. CD 19% [facility] CD 20% [facility] CD 23% [facility] CD 10% [facility] CD5+/CD19+% NA [facility] CD19/Eros% [facility] CD19/Lambda% [facility] CD13% NA [facility] CD33% [facility] CD64% NA [facility] CD2% [facility] CD 3% [facility] CD4% NA [facility] CD8% NA [facility] CD5% NA [facility] CD7% NA [facility] CD56% NA [facility] CD34% NA [facility] 12 (HLA-DR)% NA [facility] CD 38 NA [facility] CD117% NA [facility] CD11C% NA [facility] Gated Cells [facility] Represent 11 pct. of the total WBC Cell Viab [facility] 98 pct. (normal >80 pct. ) Gating Strat NA [facility] Spec Desc [facility] Spec Src [facility] Test performed by:[place] [address]BzzomhtfStephen Wan M.D. ID Date Data Source [id number] 04/05/2019 08:31:[address] [facility] Name Value Range Interpretation Code Description Data Renea rce(s) Supporting Document(s ) LDH 163 IU/L 100-190 [facility] ID Date Data Source [id number] 04/05/2019 09:43:[address] [facility] Name Value Range Interpretation Description Data Sup porting Code Source(s) Document(s ) Hep A Ab, Non Reactive [facility] Test performed on the Siemens ADVIA Cent aur XP using a diagnostic immunoassay. Hep B Core Ab,IgM Non Reactive NO [facility] Test performed on the Siemens ADVIA Cent aur XP using a diagnostic immunoassay.This assay is susceptible to interference fro m high levels of biotin. Hep Bs Ag. Non Reactive [facility] Test performed on the Siemens ADVIA Cent aur XP using a diagnostic immunoassay. Hep C Ab. Non Reactive AB [facility] Previously reactive 18 months ago.Test p erformed on the Siemens ADVIA Centaur XP using a diagnostic immunoassay. Hep Bs Ab Immune NO [facility] Test performed on the Siemens ADVIA Cent aur XP using a diagnostic immunoassay. ID Date Data Source [id number] 04/05/2019 10:02:[address] [facility] Name Value Range Interpretation Description Data Sup porting Code Source(s) Document(s ) Vanco 27.7 5.0-40.0 NO [facility] [place] mcg/mL [facility] ID Date Data Source [id number] 04/05/2019 04:39:[address] [facility] Name Value Range Interpretation Description Data Sup porting Code Source(s) Document(s ) pH Art 7.42 7.35-7.45 NO [facility] pCO2 Art 46 mmHg 35-45 HI [facility] pO2 Art 114 mmHg 80-100 HI [facility] HCO3 Art 29.8 20.0-26.0 HI [facility] mmol/L [facility] BE(B) 4.5 -2.0-2.0 HI [facility] mmol/L [facility] sO2m 98 % vol 94-100 [facility] Modality [facility] VERIFIED by Discern Expert. FiO2. 50 % [facility] [place] 500 mL [facility] PEEP 8 cmH20 [facility] Mech Rate 14 bpm [facility] Assembler Tester Name: [employer] [facility] VERIFIED by Discern Expert. Draw Date: [facility] VERIFIED by Discern Expert. Draw Time: [facility] VERIFIED by Discern Expert. Analyzed Date [facility] VERIFIED by Discern Expert. Analyzed Time [facility] VERIFIED by Discern Expert. Sample Site: [facility] CO2 Totl Art 31 19-24 HI [facility] ID Date Data Source [id number] 04/05/2019 07:19:[address] [facility] Name Value Range Interpretation Code Description Data Renae rce(s) Supporting Document(s ) ABO/Rh UN [facility] ID Date Data Source [id number] 04/05/2019 07:09:[address] [facility] Name Value Range Interpretation Code Description Data Renae rce(s) Supporting Document(s ) ABSC Gel NO [facility] ID Date Data Source [id number] 04/05/2019 04:14:[address] [facility] Manual Diff added by Discern Rule GLB_CB C_AUTO_REFLEX Name Value Range Interpretation Description Data Sup porting Code Source(s) Document(s ) Segs 93 % 50-80 [facility] Band 1 % 0-2 [facility] Neutr 7.6 2.0-8.4 [facility] Absolute x10(3)/[facility] Lymph 4 % 14-44 LO [facility] Monocyte 2 % 0-12 [facility] Eos 0 % 0-7 [facility] Basophil 0 % 0-3 [facility] RBC Morph Normocyt/ NO [facility] Plt Estimate [facility] Plt Size NO [facility] ID Date Data Source [id number] 04/05/2019 03:47:[address] [facility] Name Value Range Interpretation Description Data Sup porting Code Source(s) Document(s ) Magnesium 2.0 mg/dL 1.6-2.6 [facility] ID Date Data Source [id number] 04/05/2019 03:45:[address] [facility] Added by Discern Rule GLB_ADD_GFR_BMP Name Value Range Interpretation Code Description Data Renae rce(s) Supporting Document(s ) eGFR-AA 10 >=60 LO [facility] mL/min/1.7 - [address] eGFR-LORIE 8 >=60 LO [facility] mL/min/1.7 - [address] ID Date Data Source [id number] 04/05/2019 03:45:[address] [facility] Name Value Range Interpretation Description Data Sup porting Code Source(s) Document(s ) Phosphorus 6.3 mg/dL 2.5-5.0 HI [facility] ID Date Data Source [id number] 04/05/2019 03:45:[address] [facility] Name Value Range Interpretation Description Data Sup porting Code Source(s) Document(s ) Glucose Lvl 224 65-99 HI [facility] mg/dL [facility] BUN 25.0 6.0-20.0 [facility] mg/dL [facility] Creatinine 5.34 0.40-1.0 [place] [facility] mg/dL 0 [facility] BUN/Creat 4.7 7.0-29.0 LO [facility] Ratio ratio [facility] Sodium Lvl 136 136-145 NO [facility] mmol/L [facility] Potassium Lvl 4.4 3.5-5.1 NO [place] mmol/L [facility] Chloride 95 98-107 [place] [facility] mmol/L [facility] CO2 28 23-29 NO [place] mmol/L [facility] AGAP 14 5-15 [facility] Calcium Lvl 8.7 8.6-10.0 NO [place] mg/dL [facility] ID Date Data Source [id number] 04/05/2019 03:39:[address] [facility] Name Value Range Interpretation Description Data Sup porting Code Source(s) Document(s ) WBC 8.1 4.0-10.5 NO [facility] x10(3)/[facility] RBC 3.73 3.80-5.20 LO [facility] x10(6)/[facility] Hgb 12.6 11.4-15.1 NO [place] gm/dL [facility] Hct 38.3 % 36.0-46.0 NO [facility] MCV 102 fL 80-98 HI [facility] MCH 33.8 pg 26.0-34.0 NO [facility] MCHC 33.0 32.0-36.0 NO [facility] gm/dL [facility] RDW 14.5 % 11.0-15.0 NO [facility] Platelet 148 150-400 [facility] MPV 8.0 fL 8.5-13.0 [facility] ID Date Data Source [id number] 04/04/2019 07:37:[address] [facility] Name Value Range Interpretation Description Data Sup porting Code Source(s) Document(s ) pH Art 7.43 7.35-7.45 NO [facility] pCO2 Art 44 mmHg 35-45 NO [facility] pO2 Art 268 mmHg 80-100 [facility] HCO3 Art 29.2 20.0-26.0 HI [facility] mmol/L [facility] BE(B) 4.2 -2.0-2.0 [facility] mmol/L [facility] sO2m 99 % vol 94-100 [facility] Modality NA [facility] VERIFIED by Discern Expert. FiO2. 100 % NA [facility] [place] 500 mL [facility] PEEP 8 cmH20 [facility] Mech Rate 14 bpm [facility] Assembler Tester Name: [facility] VERIFIED by Discern Expert. Draw Date: [facility] VERIFIED by Discern Expert. Draw Time: [facility] VERIFIED by Discern Expert. Analyzed Date [facility] VERIFIED by Discern Expert. Analyzed Time [facility] VERIFIED by Discern Expert. Sample Site: [facility] CO2 Totl Art 31 19-24 [facility] ID Date Data Source [id number] 04/04/2019 05:30:[address] [facility] Name Value Range Interpretation Description Data Sup porting Code Source(s) Document(s ) pH Art 7.23 7.35-7.45 [facility] pCO2 Art 66 mmHg 35-45 [facility] pO2 Art 60 mmHg 80-100 [facility] HCO3 Art 27.6 20.0-26.0 [facility] mmol/L [facility] BE(B) -1.5 -2.0-2.0 NO [facility] mmol/[facility] sO2m 90 % vol 94-100 [facility] Modality [facility] VERIFIED by Discern Expert. FiO2. 100 % [facility] [place] 500 mL [facility] PEEP 8 cmH20 [facility] Mech Rate 14 bpm [facility] Assembler Tester Name: [employer] VERIFIED by Discern Expert. Draw Date: [facility] VERIFIED by Discern Expert. Draw Time: [facility] VERIFIED by Discern Expert. Analyzed Date [facility] VERIFIED by Discern Expert. Analyzed Time [facility] VERIFIED by Discern Expert. Sample Site: [facility] CO2 Totl Art 30 19-24 [facility] ID Date Data Source [id number] 04/04/2019 03:51:[address] [facility] Name Value Range Interpretation Description Data Sup porting Code Source(s) Document(s ) Neut Auto 62.0 % 50.0-80.0 NO [facility] Lymph Auto 16.8 % 14.0-44.0 [facility] Auto 11.7 % 0.0-12.0 NO [facility] Eos Auto 8.3 % 0.0-7.0 [facility] Baso Auto 1.2 % 0.0-3.0 NO [facility] Neut 3.4 2.0-8.4 NO [facility] x10(3)/[facility] Lymph 0.9 0.6-4.8 NO [facility] Absolute x10(3)/[facility] [place] 0.6 0.0-1.1 NO [place] Absolute x10(3)/[facility] Eos Absolute 0.5 0.0-0.5 NO [place] x10(3)/[facility] Baso 0.1 0.0-0.3 NO [place] Absolute x10(3)/[facility] ID Date Data Source [id number] 04/04/2019 03:51:[address] [facility] Name Value Range Interpretation Description Data Sup porting Code Source(s) Document(s ) WBC 5.4 4.0-10.5 NO [place] x10(3)/[facility] RBC 3.85 3.80-5.20 NO [place] x10(6)/[facility] Hgb 13.6 11.4-15.1 NO [place] gm/dL [facility] Hct 39.1 % 36.0-46.0 NO [facility] MCV 102 fL 80-98 [facility] MCH 35.3 pg 26.0-34.0 [facility] MCHC 34.7 32.0-36.0 NO [place] gm/dL [facility] RDW 14.5 % 11.0-15.0 [facility] Platelet 159 150-400 NO [place] x10(3)/[facility] MPV 7.9 fL 8.5-13.0 [facility] ID Date Data Source [id number] 04/09/2019 04:00:[address] [facility] 1965 [phone] Microbiology - Blood CulturesPROCEDURE: [...] Supporting Document(s ) ID Date Data Source [id number] 04/09/2019 04:00:[address] [facility] 1965 [phone] Microbiology - Blood CulturesPROCEDURE: [...] Supporting Document(s ) ID Date Data Source [id number] 04/04/2019 04:48:[address] [facility] Name Value Range Interpretation Code Description Data Renae rce(s) Supporting Document(s ) ABSC Gel NO [facility] ID Date Data Source [id number] 04/04/2019 04:38:[address] [facility] Name Value Range Interpretation Code Description Data Renae rce(s) Supporting Document(s ) INR 1.2 ratio 0.9-1.2 NO [facility] Indications INRProphylaxis of venous thromo-embolism: Non-hip surgery..... ..........................1.5 - 2.5 Hip surgery................................. ..2.0 - 3.0Deep Vein Thrombosis or Pulmonary Embolism........2.0 - 3.0Prevention of s ystemic embolism in valvular heart disease, tissue prosthetic heart valvesor acute IN.......................................2.0 - 3.5Prevention of embolism in mechanical heartvalves or recurrent systemic embolism.............3.0 - 4.5 PT 13.8 second(s) 10.2-12.9 [facility] ID Date Data Source [id number] 04/04/2019 04:18:[address] [facility] Name Value Range Interpretation Description Data Sup porting Code Source(s) Document(s ) Lactic Acid 1.5 mmol/L <=2.0 NO [facility] ID Date Data Source [id number] 04/04/2019 04:16:[address] [facility] Name Value Range Interpretation Description Data Sup porting Code Source(s) Document(s ) Magnesium 2.2 mg/dL 1.6-2.6 NO [facility] ID Date Data Source [id number] 04/04/2019 04:16:00 PM EDT [facility] Name Value Range Interpretation Description Data Sup porting Code Source(s) Document(s ) Glucose Lvl 80 mg/dL 65-99 NO [facility] BUN 19.0 6.0-20.0 NO [place] mg/dL [facility] Creatinine 4.94 0.40-1.0 HI [place] mg/dL 0 [facility] BUN/Creat 3.8 7.0-29.0 LO [facility] Ratio ratio [facility] Sodium Lvl 139 136-145 NO [place] mmol/L [facility] Potassium Lvl 3.8 3.5-5.1 NO [place] mmol/L [facility] Chloride 94 98-107 LO [facility] mmol/L [facility] CO2 33 23-29 [place] mmol/L [facility] AGAP 12 5-15 NO [facility] Calcium Lvl 9.4 8.6-10.0 NO [place] mg/dL [facility] Total Protein 7.8 6.0-8.3 NO [place] gm/dL [facility] Albumin Lvl 3.6 3.5-5.0 NO [place] gm/dL [facility] Glob 4.2 2.0-4.5 NO [place] gm/dL [facility] A/G Ratio 0.9 1.0-2.2 LO [place] ratio [facility] Bili Total 1.0 0.3-1.2 NO [place] mg/dL [facility] Alk Phos 56 IU/L 38-126 NO [facility] AST 14 IU/L 15-41 LO [facility] ALT 8 IU/L 7-40 NO [facility] ID Date Data Source [id number] 04/04/2019 04:11:[address] [facility] Added by Discern Rule GLB_ADD_GFR_CMP Name Value Range Interpretation Code Description Data Renae rce(s) Supporting Document(s ) eGFR-AA 11 >=60 LO [facility] mL/min/1.7 - [address] eGFR-LORIE 9 >=60 LO [facility] mL/min/1.7 - [address] ID Date Data Source [id number] 04/04/2019 04:11:[address] [facility] Name Value Range Interpretation Description Data Sup porting Code Source(s) Document(s ) Phosphorus 4.9 mg/dL 2.5-5.0 NO [facility] ID Date Data Source [id number] 04/04/2019 04:04:[address] [facility] Name Value Range Interpretation Code Description Data Renae rce(s) Supporting Document(s ) ABO/Rh UN [facility] ID Date Data Source [id number] 03/28/2019 12:31:00 PM EDT [facility] [address] [place], [place] [address]Phone: Fax: [phone] Derik Fernandez M.D., Director of PathologyCYTOLOGY REPORTPatient: RADHA BAUM MAccession #: [id number]: 03/27/2019 09:05Rece ived: 03/27/2019 10:21Reported: 03/28/2019 12:30Clinical Diagnosis and HistoryESRD. Specimen(s) Received1:Right pleural fluidFINAL MICROSCOPIC DIAGNOSISRight pl eural fluid (one thin prep, one cytospin and 2 cell blocks):-Negative for malignant c ells.-Reactive mesothelial cells and mixed inflammatory cells with background of pr oteinaceous materialCase interpreted at [facility], [address] [place] [address]. Electronically Signed By: Isaías Roa M.D.Date/Time R [...] Name Value Range Interpretation Code Description Data Renea rce(s) Supporting Document(s ) ID Date Data Source [id number] 03/28/2019 07:03:[address] [facility] Name Value Range Interpretation Description Data Sup porting Code Source(s) Document(s ) Magnesium 2.1 mg/dL 1.6-2.6 NO [facility] ID Date Data Source [id number] 03/28/2019 07:00:[address] [facility] Added by Discern Rule GLB_ADD_GFR_BMP Name Value Range Interpretation Code Description Data Renae rce(s) Supporting Document(s ) eGFR-AA 9 >=60 LO [facility] mL/min/1.7 - [address] eGFR-LORIE 8 >=60 LO [facility] mL/min/1.7 - [address] ID Date Data Source [id number] 03/28/2019 07:00:[address] [facility] Name Value Range Interpretation Description Data Sup porting Code Source(s) Document(s ) Glucose Lvl 94 mg/dL 65-99 NO [facility] BUN 28.0 6.0-20.0 [place] mg/dL [facility] Creatinine 5.83 0.40-1.0 [place] mg/dL 0 [facility] BUN/Creat 4.8 7.0-29.0 LO [place] Ratio ratio [facility] Sodium Lvl 138 136-145 NO [place] mmol/L [facility] Potassium Lvl 3.8 3.5-5.1 NO [place] mmol/L [facility] Chloride 96 98-107 [place] mmol/L [facility] CO2 33 23-29 [place] mmol/L [facility] AGAP 9 5-15 NO [facility] Calcium Lvl 8.1 8.6-10.0 LO [place] mg/dL [facility] ID Date Data Source [id number] 03/28/2019 06:27:00 AM EDT [facility] Name Value Range Interpretation Description Data Sup porting Code Source(s) Document(s ) Neut Auto 58.6 % 50.0-80.0 [facility] Lymph Auto 20.2 % 14.0-44.0 NO [facility] [place] Auto 9.5 % 0.0-12.0 [facility] Eos Auto 10.8 % 0.0-7.0 [facility] Baso Auto 0.9 % 0.0-3.0 NO [facility] Neut 3.2 2.0-8.4 NO [place] Absolute x10(3)/[facility] Lymph 1.1 0.6-4.8 NO [place] Absolute x10(3)/[facility] [place] 0.5 0.0-1.1 NO [place] Absolute x10(3)/[facility] Eos Absolute 0.6 0.0-0.5 HI [place] x10(3)/[facility] Baso 0.0 0.0-0.3 NO [place] Absolute x10(3)/[facility] ID Date Data Source [id number] 03/28/2019 06:27:[address] [facility] Name Value Range Interpretation Description Data Sup porting Code Source(s) Document(s ) WBC 5.5 4.0-10.5 NO [place] x10(3)/[facility] RBC 3.49 3.80-5.20 LO [place] x10(6)/[facility] Hgb 12.0 11.4-15.1 NO [place] gm/dL [facility] Hct 35.6 % 36.0-46.0 [facility] MCV 102 fL 80-98 HI [facility] MCH 34.5 pg 26.0-34.0 [facility] MCHC 33.8 32.0-36.0 NO [place] gm/dL [facility] RDW 14.6 % 11.0-15.0 [facility] Platelet 112 150-400 [facility] MPV 8.4 fL 8.5-13.0 [facility] ID Date Data Source [id number] 04/01/2019 11:34:[address] [facility] 1965 Microbiology - Wound/Misc CulturesPROCED URE: Culture,Body Fluid with Gram Stain [O1]SOURCE: Pleural Fl BODY SITE: See CommentCOLLECTED DATE/TIME: 03/27/20 09:00 EDT RECEIVED DATE/TIME: 03/27/2019 11:17 EDTSTART DATE/TIME: 03/27/2019 11:17 EDT FREE TEXT SOURCE:ORDERING PHYSICIAN: Luis Gramajo MDFINAL REPORTSFinal Report []Reported Date/Time: 04/01/2019 11:34 E [...] Supporting Document(s ) ID Date Data Source [id number] 03/27/2019 11:20:[address] [facility] Name Value Range Interpretation Code Description Data Renae rce(s) Supporting Document(s ) LDH BF 266 IU/L NA [facility] A specific reference range is not [...] g/dl is sugges tive of a transudate.Reference: http://www.[employer]/contents/vesoaxnfuh-irwsoqalwg-ub-l-ynzlymp-msrgtgkv-in- adult v-zshmzlq-awnnjhmRuqqvwbqts fluidThe asc itic fluid/serum (AF/S) ratio of [...] the upper limit of normal for serumReference: http://www.[employer]/contents/evaluat qqi-xb-ngrxca-with-ascitesPericardial FluidGeneral chemistry tests have not be en standardized for pericardial fluid analysis. Thus, reference ranges/ clinic al cutoff values have not been established. Results should be correlated clinically. LDH. BF Type NA [facility] BF Laterality [facility] [employer] ID Date Data Source [id number] 03/27/2019 11:16:[address] [facility] Name Value Range Interpretation Description Data Sup porting Code Source(s) Document(s ) Glucose BF 106 mg/dL [facility] A specific reference range is not availa [...] similar to that of blood g lucose.Reference: http://www.[employer]/contents/wripcscroo-lnowilimoj-lw-s-ybhohiz-kzndbufw-in- hwwgsc-iwiison-oxgpwbbYrhrnwpo al fluid The ascitic fluid glucose mannie [...] the upper limit of normal for serumReference: http://www.[employer]/contents/evaluat pdx-xb-mcqzek-with-ascitesPericardial FluidGeneral chemistry tests have not been standardized for pericardi al fluid analysis. Thus, reference ranges/ clinical cutoff values have not been established. Results should be correlated clinically. Glucose BF Type NA [facility] BF Laterality [employer] ID Date Data Source [id number] 03/27/2019 11:15:[address] [facility] Name Value Range Interpretation Description Data Sup porting Code Source(s) Document(s ) Protein BF 3.8 gm/dL [employer] A specific reference range is not availa [...] g/dl is sugges tive of a transudate.Reference: http://www.[employer]/contents/wnxspkqurf-uetjivykam-fi-l-vaklsyx-crvvejdg-in- adult w-vvutwpc-ftjmonaYrxsjjptta fluidAscitic fluid can be classified as an [...] mg/dL (2.8 mmol/L) LDH greater than the [facility] limit of normal for serumReference: http://www.[employer]/contents/evaluat taz-bl-qcnsfn-with-ascitesPericardial FluidGeneral chemistry tests have not be en standardized for pericardial fluid analysis. Thus, reference ranges/ clinic al cutoff values have not been established. Results should be correlated clinically. Protein BF Type NA [facility] BF Laterality [employer] ID Date Data Source [id number] 03/27/2019 11:01:[address] [facility] Name Value Range Interpretation Description Data Sup porting Code Source(s) Document(s ) BF Type 1 NA [facility] Color BF 1 [facility] Appear BF 1 Clear AB [facility] WBC BF 1 1296 0-200 HI [facility] RBC BF 1 [id number] 0-200 HI [facility] Segs BF 1 2 % 0-25 [facility] Lymph BF 1 92 % [facility] [employer] Monocyt BF 1 0 % 0-25 NO [facility] Eos BF 1 3 % NA [facility] Baso BF 1 2 % NA [facility] BF Type Tube 1 NA [facility] BF Laterality NA [facility] ID Date Data Source [id number] 03/27/2019 06:11:[address] [facility] Name Value Range Interpretation Description Data Sup porting Code Source(s) Document(s ) Magnesium 2.3 mg/dL 1.6-2.6 NO [facility] ID Date Data Source [id number] 03/27/2019 06:11:[address] [facility] Please draw vanco level on 03/27 at 0400. Name Value Range Interpretation Description Data Sup porting Code Source(s) Document(s ) Vanco 14.6 5.0-40.0 NO [facility] mcg/mL [facility] ID Date Data Source [id number] 03/27/2019 06:07:[address] [facility] Added by Discern Rule GLB_ADD_GFR_BMP Name Value Range Interpretation Code Description Data Renae rce(s) Supporting Document(s ) eGFR-AA 6 >=60 LO [facility] mL/min/1.7 - [address] eGFR-LORIE 5 >=60 LO [facility] mL/min/1.7 - [address] ID Date Data Source [id number] 03/27/2019 06:07:[address] [facility] Name Value Range Interpretation Description Data Sup porting Code Source(s) Document(s ) Glucose Lvl 134 65-99 HI [facility] mg/dL [facility] BUN 52.0 6.0-20.0 HI [facility] mg/dL [facility] Creatinine 8.23 0.40-1.0 HI [facility] mg/dL 0 [facility] BUN/Creat 6.3 7.0-29.0 LO [facility] Ratio ratio [facility] Sodium Lvl 138 136-145 NO [facility] mmol/L [facility] Potassium Lvl 4.4 3.5-5.1 NO [facility] mmol/L [facility] Chloride 96 98-107 LO [facility] mmol/L [facility] CO2 31 23-29 HI [facility] mmol/L [facility] AGAP 11 5-15 NO [facility] Calcium Lvl 8.3 8.6-10.0 LO [facility] mg/dL [facility] ID Date Data Source [id number] 03/27/2019 05:38:00 AM EDT [facility] Name Value Range Interpretation Description Data Sup porting Code Source(s) Document(s ) WBC 6.2 4.0-10.5 NO [facility] x10(3)/[facility] RBC 3.50 3.80-5.20 LO [facility] x10(6)/[facility] Hgb 12.2 11.4-15.1 NO [facility] gm/dL [facility] Hct 35.8 % 36.0-46.0 LO [facility] MCV 102 fL 80-98 HI [facility] MCH 34.7 pg 26.0-34.0 HI [facility] MCHC 34.0 32.0-36.0 NO [place] gm/dL [facility] RDW 14.5 % 11.0-15.0 NO [facility] Platelet 121 150-400 LO [facility] x10(3)/[facility] MPV 8.3 fL 8.5-13.0 LO [facility] ID Date Data Source [id number] 03/26/2019 11:55:[address] [facility] unable to add Name Value Range Interpretation Description Data Sup porting Code Source(s) Document(s ) Procalcitonin 0.47 0.00-0.5 NO [facility] Lvl ng/mL 0 [facility] < 0.50 ng/mL Low risk for progression [...] or septic shock. ID Date Data Source [id number] 03/26/2019 06:12:[address] [facility] Name Value Range Interpretation Description Data Sup porting Code Source(s) Document(s ) Magnesium 2.4 mg/dL 1.6-2.6 NO [facility] ID Date Data Source [id number] 03/26/2019 06:11:[address] [facility] Added by Discern Rule GLB_ADD_GFR_BMP Name Value Range Interpretation Code Description Data Renae rce(s) Supporting Document(s ) eGFR-AA 7 >=60 LO [facility] mL/min/1.7 - [address] eGFR-LORIE 6 >=60 LO [facility] mL/min/1.7 - [address] ID Date Data Source [id number] 03/26/2019 06:11:[address] [facility] Name Value Range Interpretation Description Data Sup porting Code Source(s) Document(s ) Glucose Lvl 103 65-99 HI [facility] mg/dL [facility] BUN 40.0 6.0-20.0 HI [facility] mg/dL [facility] Creatinine 7.38 0.40-1.0 HI [facility] mg/dL 0 [facility] BUN/Creat 5.4 7.0-29.0 LO [facility] Ratio ratio [facility] Sodium Lvl 137 136-145 NO [place] mmol/L [facility] Potassium Lvl 4.3 3.5-5.1 NO [place] mmol/L [facility] Chloride 96 98-107 LO [facility] mmol/L [facility] CO2 32 23-29 HI [facility] mmol/L [facility] AGAP 9 5-15 NO [facility] Calcium Lvl 8.3 8.6-10.0 LO [facility] mg/dL [facility] ID Date Data Source [id number] 03/26/2019 05:54:[address] [facility] Name Value Range Interpretation Description Data Sup porting Code Source(s) Document(s ) Neut Auto 53.2 % 50.0-80.0 NO [facility] Lymph Auto 23.9 % 14.0-44.0 NO [facility] [place] Auto 13.5 % 0.0-12.0 HI [facility] Eos Auto 8.4 % 0.0-7.0 HI [facility] Baso Auto 1.0 % 0.0-3.0 NO [facility] Neut 2.9 2.0-8.4 NO [facility] x10(3)/[facility] Lymph 1.3 0.6-4.8 NO [facility] Absolute x10(3)/[facility] [place] 0.7 0.0-1.1 NO [facility] Absolute x10(3)/[facility] Eos Absolute 0.5 0.0-0.5 NO [facility] x10(3)/[facility] Baso 0.1 0.0-0.3 NO [facility] Absolute x10(3)/[facility] ID Date Data Source [id number] 03/26/2019 05:54:[address] [facility] Name Value Range Interpretation Description Data Sup porting Code Source(s) Document(s ) WBC 5.4 4.0-10.5 NO [facility] x10(3)/[facility] RBC 3.56 3.80-5.20 LO [facility] x10(6)/[facility] Hgb 12.4 11.4-15.1 NO [facility] gm/dL [facility] Hct 36.1 % 36.0-46.0 NO [facility] MCV 101 fL 80-98 [facility] MCH 34.7 pg 26.0-34.0 [facility] MCHC 34.3 32.0-36.0 NO [place] gm/dL [facility] RDW 14.7 % 11.0-15.0 NO [facility] Platelet 119 150-400 LO [facility] x10(3)/[facility] MPV 8.4 fL 8.5-13.0 LO [facility] ID Date Data Source [id number] 03/27/2019 10:18:00 AM EDT [facility] Name Value Range Interpretation Description Data Sup porting Code Source(s) Document(s ) C Diff, Negative NA Miky DNA,pcr [facility] 027 Strain Presumptive NA [facility] Neg [facility] ID Date Data Source [id number] 03/30/2019 04:00:[address] [facility] 1965 [phone] Microbiology - Blood CulturesPROCEDURE: [...] Supporting Document(s ) ID Date Data Source [id number] 03/30/2019 04:00:[address] [facility] 1965 [phone] Microbiology - Blood CulturesPROCEDURE: Culture,Blood RCE: Blood BODY SITE:COLLECTED DATE/TIME: 11:11 EDT RECEIVED DATE/TIME: 03/25/2019 12:42 EDTSTART DATE/TIME: 03/25/2019 12:43 EDT FREE TEXT SOURCE:ORDERING PHYSICIAN: Hyun BEANVIDES, Maria Guadalupe SánchezFINAL REPORTSFinal Report []Reported Date/Time: 03/30/2019 16:00 EDTNo [...] Supporting Document(s ) ID Date Data Source [id number] 03/28/2019 06:16:[address] [facility] Name Value Range Interpretation Code Description Data Renae rce(s) Supporting Document(s ) E Chaff IgG NA [facility] E Chaff IgM NA [facility] Ehrlicia NA [facility] ANTIBODY NOT DETECTEDREFERENCE RANGE:IgG <1:64IgM <1:20Ehrlichia Chaffeensis [...] and its analyticalperformance characteristics have been determinedby [facility]. It hasnot been cleared or approved by FDA. This assayhas been validated pursuant to the CLIAregulations and is used for clinical purposes.This test was performed at:[facility], [id number] [place] [id number] ID Date Data Source [id number] 03/25/2019 05:10:[address] [facility] Name Value Range Interpretation Code Description Data Supporting Source(s) Document(s ) Lyme Screen Negative NA [facility] IgG [facility] Positive or equivocal results are automa tically reflexed to confirmatory testing.A negative result does not exclude infecti on. If clinically warranted, repeat testing in 4 to 6 weeks. Lyme Screen IgM Negative NA [facility] ID Date Data Source [id number] 03/25/2019 12:03:[address] [facility] Name Value Range Interpretation Code Description Data Supporting Source(s) Document(s ) Trop[facility]- <0.03 <=0.05 [facility] ID Date Data Source [id number] 03/25/2019 12:01:[address] [facility] Name Value Range Interpretation Description Data Sup porting Code Source(s) Document(s ) Magnesium 2.4 mg/dL 1.6-2.6 [facility] ID Date Data Source [id number] 03/25/2019 12:01:[address] [facility] Name Value Range Interpretation Description Data Sup porting Code Source(s) Document(s ) Glucose Lvl 101 65-99 HI [facility] mg/dL [facility] BUN 32.0 6.0-20.0 HI [facility] mg/dL [facility] Creatinine 6.54 0.40-1.0 HI [facility] mg/dL 0 [facility] BUN/Creat 4.9 7.0-29.0 LO [facility] Ratio ratio [facility] Sodium Lvl 138 136-145 NO [facility] mmol/L [facility] Potassium Lvl 4.1 3.5-5.1 NO [facility] mmol/L [facility] Chloride 94 98-107 LO [facility] mmol/L [facility] CO2 34 23-29 HI [facility] mmol/L [facility] AGAP 10 5-15 [facility] Calcium Lvl 8.9 8.6-10.0 NO [facility] mg/dL [facility] Total Protein 7.7 6.0-8.3 NO [facility] gm/dL [facility] Albumin Lvl 3.8 3.5-5.0 NO [facility] gm/dL [facility] Glob 3.9 2.0-4.5 NO [facility] gm/dL [facility] A/G Ratio 1.0 1.0-2.2 NO [facility] ratio [facility] Bili Total 0.9 0.3-1.2 NO [facility] mg/dL [facility] Alk Phos 52 IU/L 38-126 NO [facility] AST 12 IU/L 15-41 LO [facility] ALT 7 IU/L 7-40 [facility] ID Date Data Source [id number] 03/25/2019 12:00:00 PM EDT [facility] Name Value Range Interpretation Description Data Sup porting Code Source(s) Document(s ) Lactic Acid 1.1 mmol/L <=2.0 NO [facility] Lvl [facility] ID Date Data Source [id number] 03/25/2019 11:57:[address] [facility] Name Value Range Interpretation Description Data Sup porting Code Source(s) Document(s ) WBC 5.3 4.0-10.5 NO [facility] x10(3)/[facility] RBC 3.85 3.80-5.20 NO [facility] x10(6)/[facility] Hgb 13.2 11.4-15.1 NO [place] gm/dL [facility] Hct 39.6 % 36.0-46.0 NO [facility] MCV 103 fL 80-98 [facility] MCH 34.3 pg 26.0-34.0 [facility] MCHC 33.4 32.0-36.0 NO [facility] gm/dL [facility] RDW 15.0 % 11.0-15.0 NO [facility] Platelet 127 150-400 LO [facility] x10(3)/[facility] MPV 8.2 fL 8.5-13.0 [facility] ID Date Data Source [id number] 03/25/2019 11:57:[address] [facility] Name Value Range Interpretation Description Data Sup porting Code Source(s) Document(s ) Neut Auto 62.2 % 50.0-80.0 NO [facility] Lymph Auto 19.3 % 14.0-44.0 NO [facility] [place] Auto 8.6 % 0.0-12.0 [facility] Eos Auto 9.0 % 0.0-7.0 [facility] Baso Auto 0.9 % 0.0-3.0 [facility] Neut 3.3 2.0-8.4 NO [facility] Absolute x10(3)/[facility] Lymph 1.0 0.6-4.8 NO [facility] Absolute x10(3)/[facility] [place] 0.5 0.0-1.1 NO [facility] Absolute x10(3)/[facility] Eos Absolute 0.5 0.0-0.5 NO [facility] x10(3)/[facility] Baso 0.0 0.0-0.3 NO [facility] Absolute x10(3)/[facility] ID Date Data Source [id number] 03/25/2019 11:57:[address] [facility] Name Value Range Interpretation Code Description Data Renae rce(s) Supporting Document(s ) INR 1.1 ratio 0.9-1.2 [facility] Indications INRProphylaxis of venous thromo-embolism: Non-hip surgery..... ..........................1.5 - 2.5 Hip surgery................................. ..2.0 - 3.0Deep Vein Thrombosis or Pulmonary Embolism........2.0 - 3.0Prevention of s ystemic embolism in valvular heart disease, tissue prosthetic heart valvesor acute IN.......................................2.0 - 3.5Prevention of embolism in mechanical heartvalves or recurrent systemic embolism.............3.0 - 4.5 PT 12.5 second(s) 10.2-12.9 NO [facility] ID Date Data Source [id number] 03/25/2019 11:54:[address] [facility] Added by Discern Rule GLB_ADD_GFR_CMP Name Value Range Interpretation Code Description Data Renae rce(s) Supporting Document(s ) eGFR-AA 8 >=60 LO [facility] mL/min/1.7 - [address] eGFR-LORIE 7 >=60 LO [facility] mL/min/1.[address] ID Date Data Source [id number] 03/21/2019 09:36:[address] [facility] Name Value Range Interpretation Code Description Data Renae rce(s) Supporting Document(s ) PT 12.6 10.2-12.9 NO [facility] INR 1.1 ratio 0.9-1.2 [facility] Indications INRProphylaxis of venous thromo-embolism: Non-hip surgery..... ..........................1.5 - 2.5 Hip surgery................................. ..2.0 - 3.0Deep Vein Thrombosis or Pulmonary Embolism........2.0 - 3.0Prevention of s ystemic embolism in valvular heart disease, tissue prosthetic heart valvesor acute IN.......................................2.0 - 3.5Prevention of embolism in mechanical heartvalves or recurrent systemic embolism.............3.0 - 4.5 APTT 34.6 second(s) 27.4-38.[address] [facility] ID Date Data Source [id number] 03/21/2019 09:22:00 AM EDT [facility] Name Value Range Interpretation Description Data Sup porting Code Source(s) Document(s ) WBC 5.5 4.0-10.5 NO [facility] x10(3)/[facility] RBC 4.06 3.80-5.20 NO [facility] x10(6)/[facility] Hgb 14.3 11.4-15.1 NO [place] gm/dL [facility] Hct 41.3 % 36.0-46.0 NO [facility] MCV 102 fL 80-98 [facility] MCH 35.4 pg 26.0-34.0 [facility] MCHC 34.7 32.0-36.0 NO [facility] gm/dL [facility] RDW 14.9 % 11.0-15.0 [facility] Platelet 131 150-400 LO [facility] x10(3)/[facility] MPV 8.3 fL 8.5-13.0 [facility] ID Date Data Source [id number] 10/21/2018 06:40:[address] [facility] Name Value Range Interpretation Description Data Sup porting Code Source(s) Document(s ) Segs 92 % 50-80 HI [facility] Band 0 % 0-2 [facility] Neutr Absolute 10.8 2.0-8.4 HI [facility] x10(3)/m [facility] Lymph 4 % 14-44 LO [facility] Monocyte 4 % 0-12 [facility] Eos 0 % 0-7 [facility] Basophil 0 % 0-3 [facility] RBC Morph Normocyt AB [place] /chrom [facility] Anisocyte NO [facility] Macrocyte NO [facility] Elliptocyte UN [facility] Hypochrom UN [facility] Plt Estimate NO [facility] Manual Diff added by Discern Rule GLB_CB C_AUTO_REFLEX ID Date Data Source [id number] 10/21/2018 06:05:[address] [facility] Name Value Range Interpretation Code Description Data Renae rce(s) Supporting Document(s ) eGFR-AA 11 >=60 LO [facility] mL/min/1.[address] [place] [address] Added by Discern Rule GLB_ADD_GFR_BMP eGFR-LORIE 9 mL/min/1.73m2 >=60 [facility] Added by Discern Rule GLB_ADD_GFR_BMP ID Date Data Source [id number] 10/21/2018 06:05:[address] [facility] Name Value Range Interpretation Description Data Sup porting Code Source(s) Document(s ) Magnesium 2.3 mg/dL 1.6-2.6 NO [facility] ID Date Data Source [id number] 10/21/2018 06:05:[address] [facility] Name Value Range Interpretation Description Data Sup porting Code Source(s) Document(s ) Glucose Lvl 334 65-99 HI [place] mg/dL [facility] BUN 66.0 6.0-20.0 HI [place] mg/dL [facility] Creatinine 5.03 0.40-1.0 HI [place] mg/dL 0 [facility] BUN/Creat 13.1 7.0-29.0 NO [place] Ratio ratio [facility] Sodium Lvl 136 136-145 NO [place] mmol/L [facility] Potassium Lvl 4.6 3.5-5.1 NO [place] mmol/L [facility] Chloride 93 98-107 LO [place] mmol/L [facility] CO2 28 23-29 NO [place] mmol/L [facility] AGAP 15 5-15 NO [facility] Calcium Lvl 9.5 8.6-10.0 NO [place] mg/dL [facility] ID Date Data Source [id number] 10/21/2018 06:00:[address] [facility] Name Value Range Interpretation Description Data Sup porting Code Source(s) Document(s ) WBC 11.7 4.0-10.5 HI [facility] x10(3)/[facility] RBC 3.77 3.80-5.20 LO [facility] x10(6)/[facility] Hgb 12.9 11.4-15.1 NO [place] gm/dL [facility] Hct 38.8 % 36.0-46.0 NO [facility] MCV 103 fL 80-98 [facility] MCH 34.1 pg 26.0-34.0 [facility] MCHC 33.1 32.0-36.0 NO [place] gm/dL [facility] RDW 15.0 % 11.0-15.0 NO [facility] Platelet 155 150-400 NO [place] x10(3)/[facility] MPV 8.5 fL 8.5-13.0 NO [facility] ID Date Data Source [id number] 10/20/2018 06:04:[address] [facility] Name Value Range Interpretation Description Data Sup porting Code Source(s) Document(s ) Segs 91 % 50-80 [facility] Band 0 % 0-2 NO [facility] Neutr 8.4 2.0-8.4 NO [place] Absolute x10(3)/[facility] Lymph 7 % 14-44 [facility] Monocyte 2 % 0-12 NO [facility] Eos 0 % 0-7 NO [facility] Basophil 0 % 0-3 NO [facility] RBC Morph Normocyt AB [facility] Macrocyte NA [facility] Hypochrom NA [facility] Plt Estimate NO [facility] Manual Diff added by Discern Rule GLB_CB C_AUTO_REFLEX ID Date Data Source [id number] 10/20/2018 06:02:[address] [facility] Name Value Range Interpretation Description Data Sup porting Code Source(s) Document(s ) WBC 9.2 4.0-10.5 NO [place] x10(3)/[facility] RBC 3.83 3.80-5.20 NO [place] x10(6)/[facility] Hgb 13.0 11.4-15.1 NO [place] gm/dL [facility] Hct 38.5 % 36.0-46.0 NO [facility] MCV 100 fL 80-98 [facility] MCH 33.9 pg 26.0-34.0 NO [facility] MCHC 33.8 32.0-36.0 NO [place] gm/dL [facility] RDW 15.0 % 11.0-15.0 NO [facility] Platelet 147 150-400 LO [place] x10(3)/[facility] MPV 8.2 fL 8.5-13.0 LO [facility] ID Date Data Source [id number] 10/20/2018 05:54:[address] [facility] Name Value Range Interpretation Description Data Sup porting Code Source(s) Document(s ) Magnesium 2.0 mg/dL 1.6-2.6 NO [facility] ID Date Data Source [id number] 10/20/2018 05:54:[address] [facility] Name Value Range Interpretation Description Data Sup porting Code Source(s) Document(s ) Glucose Lvl 230 65-99 HI [place] mg/dL [facility] BUN 32.0 6.0-20.0 HI [place] mg/dL [facility] Creatinine 3.92 0.40-1.0 HI [place] mg/dL 0 [facility] BUN/Creat 8.2 7.0-29.0 NO [place] Ratio ratio [facility] Sodium Lvl 135 136-145 LO [place] mmol/L [facility] Potassium Lvl 4.7 3.5-5.1 NO [place] mmol/L [facility] Chloride 92 98-107 LO [place] mmol/L [facility] CO2 30 23-29 HI [place] mmol/L [facility] AGAP 13 5-15 NO [place] [facility] Calcium Lvl 8.8 8.6-10.0 NO [place] mg/dL [facility] Total Protein 7.0 6.0-8.3 NO [place] gm/dL [facility] Albumin Lvl 3.5 3.5-5.0 NO [place] gm/dL [facility] Glob 3.5 2.0-4.5 NO [place] gm/dL [facility] A/G Ratio 1.0 1.0-2.2 NO [place] ratio [facility] Bili Total 1.1 0.3-1.2 NO [place] mg/dL [facility] Alk Phos 60 IU/L 38-126 NO [facility] AST 16 IU/L 15-41 NO [facility] ALT 10 IU/L 7-40 NO [facility] Hospital ID Date Data Source [id number] 10/20/2018 05:47:[address] [facility] Name Value Range Interpretation Code Description Data Renae rce(s) Supporting Document(s ) eGFR-AA 14 >=60 [facility] mL/min/[address] Added by Discern Rule GLB_ADD_GFR_CMP eGFR-LORIE 12 mL/min/1.73m2 >=60 [facility] Added by Discern Rule GLB_ADD_GFR_CMP ID Date Data Source [id number] 10/24/2018 04:00:[address] [facility] 1965 1 [phone] Microbiology - Blood Cultures [...] Supporting Document(s ) ID Date Data Source [id number] 10/19/2018 01:37:[address] [facility] Name Value Range Interpretation Description Data Sup porting Code Source(s) Document(s ) Lactic Acid 1.6 mmol/L <=2.0 NO [facility] ID Date Data Source [id number] 10/24/2018 04:00:[address] [facility] 1965 1 [phone] Microbiology - Blood Cultures [...] Supporting Document(s ) ID Date Data Source [id number] 10/19/2018 01:42:[address] [facility] Name Value Range Interpretation Code Description Data Supporting Source(s) Document(s ) Troponin- <0.03 <=0.05 NO [place] ng/mL [facility] ID Date Data Source [id number] 10/19/2018 01:40:[address] [facility] Name Value Range Interpretation Description Data Sup porting Code Source(s) Document(s ) Glucose Lvl 141 65-99 HI [place] mg/dL [facility] BUN 19.0 6.0-20.0 [place] mg/dL [facility] Creatinine 3.01 0.40-1.0 [place] mg/dL 0 [facility] BUN/Creat 6.3 7.0-29.0 LO [place] Ratio ratio [facility] Sodium Lvl 136 136-145 NO [place] mmol/L [facility] Potassium Lvl 4.3 3.5-5.1 NO [place] mmol/L [facility] Chloride 91 98-107 LO [place] mmol/L [facility] CO2 34 23-29 [place] mmol/L [facility] AGAP 12 5-15 NO [place] [facility] Calcium Lvl 8.7 8.6-10.0 NO [place] mg/dL [facility] Total Protein 7.2 6.0-8.3 NO [place] gm/dL [facility] Albumin Lvl 3.7 3.5-5.0 NO [place] gm/dL [facility] Glob 3.5 2.0-4.5 NO [place] gm/dL [facility] A/G Ratio 1.1 1.0-2.2 NO [facility] ratio [facility] Bili Total 1.2 0.3-1.2 NO [facility] mg/dL [facility] Alk Phos 56 IU/L 38-126 NO [facility] AST 16 IU/L 15-41 [facility] ALT 8 IU/L 7-40 [facility] ID Date Data Source [id number] 10/19/2018 01:32:[address] [facility] Name Value Range Interpretation Code Description Data Renae rce(s) Supporting Document(s ) eGFR-AA 20 >=60 [facility] mL/min/[address] [place] [address] Added by Discern Rule GLB_ADD_GFR_CMP eGFR-LORIE 16 mL/min/1.73m2 >=60 [facility] Added by Discern Rule GLB_ADD_GFR_CMP ID Date Data Source [id number] 10/19/2018 01:31:[address] [facility] Name Value Range Interpretation Code Description Data Renae rce(s) Supporting Document(s ) APTT 30.0 27.4-38.2 [facility] ID Date Data Source [id number] 10/19/2018 01:31:[address] [facility] Name Value Range Interpretation Code Description Data Renae rce(s) Supporting Document(s ) INR 1.1 ratio 0.9-1.2 [facility] PT 13.3 10.2-12.9 [facility] Indications INRProphylaxis ofvenous thromo-embolism: Non-hipsurgery...... .........................1.5 - 2.5 Hipsurgery.............................. .....2.0 - 3.0Deep VeinThrombosis or Pulmonary Embolism........2.0 - 3.0Preve ntion ofsystemic embolism in valvularheart disease, tissue prosthetic heartvalvesor acute IN...................................... .2.0 -3.5Prevention of embolism in mechanical heartvalves or recurrentsystemic embolis m.............3.0 - 4.5 ID Date Data Source [id number] 10/19/2018 01:20:[address] [facility] Name Value Range Interpretation Description Data Sup porting Code Source(s) Document(s ) WBC 7.5 4.0-10.5 NO [place] x10(3)/[facility] RBC 3.72 3.80-5.20 LO [place] x10(6)/[facility] Hgb 12.6 11.4-15.1 NO [place] gm/dL [facility] Hct 38.0 % 36.0-46.0 [facility] MCV 102 fL 80-98 HI [facility] MCH 33.9 pg 26.0-34.0 NO [facility] MCHC 33.1 32.0-36.0 NO [place] gm/dL [facility] RDW 15.0 % 11.0-15.0 [facility] Platelet 144 150-400 LO [place] x10(3)/[facility] MPV 8.0 fL 8.5-13.0 [facility] ID Date Data Source [id number] 10/19/2018 01:20:[address] [facility] Name Value Range Interpretation Description Data Sup porting Code Source(s) Document(s ) Neut Auto 71.9 % 50.0-80.0 NO [facility] Lymph Auto 16.2 % 14.0-44.0 NO [facility] [place] Auto 6.7 % 0.0-12.0 NO [facility] Eos Auto 4.3 % 0.0-7.0 NO [facility] Baso Auto 0.9 % 0.0-3.0 NO [facility] Neut 5.4 2.0-8.4 NO [place] Absolute x10(3)/[facility] Lymph 1.2 0.6-4.8 NO [place] Absolute x10(3)/[facility] [place] 0.5 0.0-1.1 NO [place] Absolute x10(3)/[facility] Eos Absolute 0.3 0.0-0.5 NO [place] x10(3)/[facility] Baso 0.1 0.0-0.3 NO [place] Absolute x10(3)/[facility] ID Date Data Source [id number] 10/08/2018 04:47:[address] [facility] Name Value Range Interpretation Description Data Sup porting Code Source(s) Document(s ) Glucose Lvl 112 65-99 [place] mg/dL [facility] BUN 45.0 6.0-20.0 [place] mg/dL [facility] Creatinine 6.83 0.40-1.0 [place] mg/dL 0 [facility] BUN/Creat 6.6 7.0-29.0 LO [place] Ratio ratio [facility] Sodium Lvl 138 136-145 NO [place] mmol/L [facility] Potassium Lvl 4.3 3.5-5.1 NO [place] mmol/L [facility] Chloride 99 98-107 NO [place] mmol/L [facility] CO2 27 23-29 NO [place] mmol/L [facility] AGAP 12 5-15 [facility] Calcium Lvl 9.7 8.6-10.0 NO [place] mg/dL [facility] Total Protein 6.8 6.0-8.3 NO [place] gm/dL [facility] Albumin Lvl 3.5 3.5-5.0 NO [place] gm/dL [facility] Glob 3.3 2.0-4.5 NO [place] gm/dL [facility] A/G Ratio 1.1 1.0-2.2 NO [place] ratio [facility] Bili Total 0.8 0.3-1.2 NO [place] mg/dL [facility] Alk Phos 51 IU/L 38-126 NO [facility] AST 9 IU/L 15-41 LO [facility] ALT 6 IU/L 7-40 [facility] ID Date Data Source [id number] 10/08/2018 04:40:[address] [facility] Name Value Range Interpretation Code Description Data Renae rce(s) Supporting Document(s ) eGFR-AA 8 >=60 LO [facility] mL/min/1.[address] [place] [address] Added by Discern Rule GLB_ADD_GFR_CMP eGFR-LORIE 6 mL/min/1.73m2 >=60 LO [facility] Added by Discern Rule GLB_ADD_GFR_CMP ID Date Data Source [id number] 10/08/2018 04:35:[address] [facility] Name Value Range Interpretation Code Description Data Renae rce(s) Supporting Document(s ) INR 1.0 ratio 0.9-1.2 NO [facility] PT 12.7 10.2-12.9 [facility](s) [facility] Indications INRProphylaxis ofvenous thromo-embolism: Non-hipsurgery...... .........................1.5 - 2.5 Hipsurgery.............................. .....2.0 - 3.0Deep VeinThrombosis or Pulmonary Embolism........2.0 - 3.0Preve ntion ofsystemic embolism in valvularheart disease, tissue prosthetic heartvalvesor acute IN...................................... .2.0 -3.5Prevention of embolism in mechanical heartvalves or recurrentsystemic embolis m.............3.0 - 4.5 ID Date Data Source [id number] 10/08/2018 04:30:[address] [facility] Name Value Range Interpretation Description Data Sup porting Code Source(s) Document(s ) WBC 7.3 4.0-10.5 NO [place] x10(3)/[facility] RBC 3.45 3.80-5.20 LO [place] x10(6)/[facility] Hgb 11.9 11.4-15.1 NO [place] gm/dL [facility] Hct 34.7 % 36.0-46.0 [facility] MCV 101 fL 80-98 [facility] MCH 34.4 pg 26.0-34.0 HI [facility] MCHC 34.2 32.0-36.0 NO [place] gm/dL [facility] RDW 15.1 % 11.0-15.0 [facility] Platelet 133 150-400 LO [place] x10(3)/[facility] MPV 8.3 fL 8.5-13.0 [facility] pt in testing, ID Date Data Source [id number] 10/08/2018 04:30:[address] [facility] Name Value Range Interpretation Description Data Sup porting Code Source(s) Document(s ) Neut Auto 57.5 % 50.0-80.0 NO [facility] Lymph Auto 25.5 % 14.0-44.0 [facility] Auto 10.1 % 0.0-12.0 NO [facility] Eos Auto 6.2 % 0.0-7.0 NO [facility] Baso Auto 0.7 % 0.0-3.0 [facility] Neut 4.2 2.0-8.4 NO [place] Absolute x10(3)/[facility] Lymph 1.9 0.6-4.8 NO [place] Absolute x10(3)/[facility] [place] 0.7 0.0-1.1 NO [place] Absolute x10(3)/[facility] Eos Absolute 0.5 0.0-0.5 NO [place] x10(3)/[facility] Baso 0.1 0.0-0.3 NO [place] Absolute x10(3)/[facility] ID Date Data Source [id number] 07/26/2018 06:18:00 PM EST [facility] Name Value Range Interpretation Description Data Sup porting Code Source(s) Document(s ) Glucose Lvl 127 65-99 [place] mg/dL [facility] BUN 30.0 6.0-20.0 HI [place] mg/dL [facility] Creatinine 4.96 0.40-1.0 [place] mg/dL 0 [facility] BUN/Creat 6.0 7.0-29.0 LO [place] Ratio ratio [facility] Sodium Lvl 139 136-145 NO [place] mmol/L [facility] Potassium Lvl 4.7 3.5-5.1 NO [place] mmol/L [facility] Chloride 96 98-107 LO [place] mmol/L [facility] CO2 31 23-29 [place] mmol/L [facility] AGAP 12 5-15 NO [facility] Calcium Lvl 9.5 8.6-10.0 NO [place] mg/dL [facility] Total Protein 6.9 6.0-8.3 NO [place] gm/dL [facility] Albumin Lvl 3.7 3.5-5.0 NO [place] gm/dL [facility] Glob 3.2 2.0-4.5 NO [place] gm/dL [facility] A/G Ratio 1.2 1.0-2.2 NO [place] ratio [facility] Bili Total 0.6 0.3-1.2 NO [place] mg/dL [facility] Alk Phos 60 IU/L 38-126 NO [facility] AST 11 IU/L 15-41 LO [facility] ALT 9 IU/L 7-40 [facility] ID Date Data Source [id number] 07/26/2018 06:18:[address] [facility] Name Value Range Interpretation Code Description Data Renae rce(s) Supporting Document(s ) eGFR-AA 11 >=60 LO [facility] mL/min/1.7 - [address] eGFR-LORIE 9 >=60 LO [facility] mL/min/1.7 - [address] Added by Discern Rule GLB_ADD_GFR_CMP ID Date Data Source [id number] 07/26/2018 06:31:[address] [facility] Name Value Range Interpretation Code Description Data Supporting Source(s) Document(s ) Chol 150 mg/dL <=199 NO [facility] HDL Chol 38 mg/dL >=40 LO [facility] Chol/HDL 4 ratio NA [facility] Trig 74 mg/dL 72-175 NO [facility] LDL 98 mg/dL 10-100 NO [facility] Procedure Social History Code Duration Value Status Description Data Source(s ) Smoking 02/05/2020 Ex-smoker completed Ex-smoker [facility] [employer] - 12:59:28 PM EDT (finding) (finding) [facility] Smoking 04/17/2019 Ex-smoker completed Ex-smoker [facility] [employer] - 12:43:43 PM EDT (finding) (finding) [facility] Smoking 04/17/2019 Ex-smoker completed Ex-smoker [facility] [employer] - 12:43:43 PM EDT (finding) (finding) [facility] Smoking 04/17/2019 Ex-smoker completed Ex-smoker [facility] [employer] - 12:43:43 PM EDT (finding) (finding) [facility] Smoking 04/17/2019 Ex-smoker completed Ex-smoker [facility] [employer] - 12:43:43 PM EDT (finding) (finding) [facility] Smoking 04/17/2019 Ex-smoker completed Ex-smoker [facility] - 12:43:43 PM EDT (finding) (finding) [facility] Smoking 04/17/2019 Ex-smoker completed Ex-smoker [facility] - 12:43:43 PM EDT (finding) (finding) [facility] Smoking 04/17/2019 Ex-smoker completed Ex-smoker [facility] - 12:43:43 PM EDT (finding) (finding) [facility] Smoking 04/17/2019 Ex-smoker completed Ex-smoker [facility] - 12:43:43 PM EDT (finding) (finding) [facility] Smoking 04/17/2019 Ex-smoker completed Ex-smoker [facility] - 12:43:43 PM EDT (finding) (finding) [facility] Smoking 04/17/2019 Ex-smoker completed Ex-smoker [facility] - 12:43:43 PM EDT (finding) (finding) [facility] Smoking 04/17/2019 Ex-smoker completed Ex-smoker [facility] - 12:43:43 PM EDT (finding) (finding) [facility] Smoking 04/04/2019 Ex-smoker completed Ex-smoker [facility] - 03:24:36 PM EDT (finding) (finding) [facility] Smoking 04/04/2019 Ex-smoker completed Ex-smoker [facility] - 03:24:36 PM EDT (finding) (finding) [facility] Smoking 04/04/2019 Ex-smoker completed Ex-smoker [facility] - 03:24:36 PM EDT (finding) (finding) [facility] Smoking 04/04/2019 Ex-smoker completed Ex-smoker [facility] - 03:24:36 PM EDT (finding) (finding) [facility] Smoking 04/04/2019 Ex-smoker completed Ex-smoker [facility] - 03:24:36 PM EDT (finding) (finding) [facility] Smoking 04/04/2019 Ex-smoker completed Ex-smoker [facility] - 03:24:36 PM EDT (finding) (finding) [facility] Smoking 04/04/2019 Ex-smoker completed Ex-smoker [facility] - 03:24:36 PM EDT (finding) (finding) [facility] Smoking 03/25/2019 Ex-smoker completed Ex-smoker [facility] - 10:08:08 AM EDT (finding) (finding) [facility] Smoking 03/25/2019 Ex-smoker completed Ex-smoker [facility] - 10:08:08 AM EDT (finding) (finding) [facility] Smoking 03/25/2019 Ex-smoker completed Ex-smoker [facility] - 10:08:08 AM EDT (finding) (finding) [facility] Smoking 03/25/2019 Ex-smoker completed Ex-smoker [facility] - 10:08:08 AM EDT (finding) (finding) [facility] Smoking 03/25/2019 Ex-smoker completed Ex-smoker [facility] - 10:08:08 AM EDT (finding) (finding) [facility] Smoking 03/25/2019 Ex-smoker completed Ex-smoker [facility] - 10:08:08 AM EDT (finding) (finding) [facility] Smoking 10/19/2018 Ex-smoker completed [facility]-smoker [facility] - 12:41:02 PM EDT (finding) (finding) [facility] Smoking 10/19/2018 Ex-smoker completed Ex-smoker [facility] - 12:41:02 PM EDT (finding) (finding) [facility] Smoking 10/08/2018 Ex-smoker completed Ex-smoker [facility] - 12:54:36 PM EDT (finding) (finding) [facility] Smoking 10/08/2018 Ex-smoker completed Ex-smoker [facility] - 12:54:36 PM EDT (finding) (finding) [facility] Smoking Never smoker [facility] Home/Environme UNK completed [facility] - nt [facility] Alcohol (Use Alcohol Screen Below UNK completed [facility] Drink ocassionally Home/Environment UNK completed [facility] - [facility] Alcohol (Use Alcohol Screen Below UNK completed [facility] Drink ocassionally Home/Environment UNK completed [facility] Alcohol (Use Alcohol Screen Below UNK completed [facility] Drink ocassionally Home/Environment UNK completed [facility] Alcohol (Use Alcohol Screen Below UNK completed [facility] Drink ocassionally Home/Environment UNK completed [facility] Alcohol (Use Alcohol Screen Below UNK completed [facility] Drink ocassionally Home/Environment UNK completed [facility] Alcohol (Use Alcohol Screen Below UNK completed [facility] Drink ocassionally Home/Environment UNK completed [facility] Alcohol (Use Alcohol Screen Below UNK completed [facility] Drink ocassionally Home/Environment UNK completed [facility] Alcohol (Use Alcohol Screen Below UNK completed [facility] Drink ocassionally Home/Environment UNK completed [facility] Alcohol (Use Alcohol Screen Below UNK completed [facility] Drink ocassionally Home/Environment UNK completed [facility] Alcohol (Use Alcohol Screen Below UNK completed [facility] Drink ocassionally Home/Environment UNK completed [facility] Alcohol (Use Alcohol Screen Below UNK completed [facility] Drink ocassionally Home/Environment UNK completed [facility] Alcohol (Use Alcohol Screen Below UNK completed [facility] Drink ocassionally Home/Environment UNK completed [facility] Alcohol (Use Alcohol Screen Below UNK completed [facility] Drink ocassionally Home/Environment UNK completed [facility] Alcohol (Use Alcohol Screen Below UNK completed [facility] Drink ocassionally Home/Environment UNK completed [facility] Alcohol (Use Alcohol Screen Below UNK completed [facility] Drink ocassionally Home/Environment UNK completed [facility] Alcohol (Use Alcohol Screen Below UNK completed [facility] Drink ocassionally Home/Environment UNK completed [facility] Alcohol (Use Alcohol Screen Below UNK completed [facility] Drink ocassionally Home/Environment UNK completed [facility] Alcohol (Use Alcohol Screen Below UNK completed [facility] Drink ocassionally Home/Environment UNK completed [facility] Alcohol (Use Alcohol Screen Below UNK completed [facility] Drink ocassionally Home/Environment UNK completed [facility] Alcohol (Use Alcohol Screen Below UNK completed [facility] Drink ocassionally Home/Environment UNK completed [facility] Alcohol (Use Alcohol Screen Below UNK completed [facility] Drink ocassionally Home/Environment UNK completed [facility] Alcohol (Use Alcohol Screen Below UNK completed [facility] Drink ocassionally Home/Environment UNK completed [facility] Alcohol (Use Alcohol Screen Below UNK completed [facility] Drink ocassionally Home/Environment UNK completed [facility] Alcohol (Use Alcohol Screen Below UNK completed [facility] Drink ocassionally Home/Environment UNK completed [facility] Alcohol (Use Alcohol Screen Below UNK completed [facility] Drink ocassionally Home/Environment UNK completed [facility] Alcohol UNK completed [facility] Drink ocassionally Home/Environment UNK completed [facility] Alcohol UNK completed [facility] Drink ocassionally Home/Environment UNK completed [facility] Alcohol UNK completed [facility] Drink ocassionally Home/Environment UNK completed [facility] Alcohol UNK completed [facility] Drink ocassionally Smoking Ex-smoker (finding) completed Ex-smoker (findi ng) [facility] Home/Environment UNK completed [facility] Tobacco UNK completed [facility] Quit smoking 6 years ago Alcohol UNK completed [facility] Drink ocassionally Vital Signs ID Date Data Source UNK Name Value Range Interpretation Description Data Sour ce(s) Code Diastolic blood 72 {} Normal (applies to 72 {} [place] pressure non-numeric [facility] results) [facility] Systolic blood 140 {} Normal (applies to 140 {} [place] pressure non-numeric [facility] results) [facility] First Respiration 18.0000 {} Normal (applies to 18.0000 {} [place] rate Set non-numeric [facility] results) [facility] Heart rate 93.0000 {} Normal (applies to 93.0000 {} [place] non-numeric [facility] results) [facility] Body temperature 97.5000 {} Normal (applies to 97.5000 {} [place] non-numeric [facility] results) [facility] wt - obtain Normal (applies to {} [place] non-numeric [facility] results) [facility] weight - kg 102.3000 {} Normal (applies to 102.3000 {} [place] non-numeric [facility] results) [facility] Vital Signs ed md aware ed md aware Elviecastaliastacie kierra lt Reported To - [facility] Mean blood 61 mm[Hg] 61 mm[Hg] [facility] pressure by - [place] Noninvasive [facility] Diastolic blood 45 mm[Hg] 60-90 mmHg 45 mm[Hg] [facility] H ealth pressure - [place] [facility] Systolic blood 94 mm[Hg] 90-130 Normal (applies to 94 mm[Hg] [facility] pressure mmHg non-numeric - [place] results) [facility] Respiratory rate 17 br/min 14-20 Normal (applies to 17 br/min [facility] Health br/min non-numeric - [place] results) [facility] Heart rate 87 bpm 60-100 bpm Normal (applies to 87 bpm [facility] non-numeric - [place] results) [facility] Oxygen saturation 98 % 94-100 % Normal (applies to 98 % Pain Doctor in Blood non-numeric - [place] Postductal by results) [facility] Pulse oxim[facility] Ce nter Respiratory rate 18 br/min 14-20 Normal (applies to 18 br/min [facility] br/min non-numeric - [place] results) [facility] Heart rate 80 bpm 60-100 bpm Normal (applies to 80 bpm [email or web address] Peripheral artery non-numeric - [place] ar by palpation results) [facility] Oral temperature 98.9 [degF] 96.4-99.1 Normal (applies to 98.9 [degF ] [facility] DegF non-numeric - [place] results) [facility] Oral temperature 98.9 [degF] 96.4-99.1 Normal (applies to 98.9 [degF ] [facility] DegF non-numeric - [place] results) [facility] Mean blood 59 mm[Hg] 59 mm[Hg] [facility] pressure by - [place] Noninvasive [facility] Diastolic blood 39 mm[Hg] 60-90 mmHg 39 mm[Hg] [facility] pressure - [place] [facility] Systolic blood 100 mm[Hg] 90-130 Normal (applies to 100 mm[Hg] [facility] pressure mmHg non-numeric - [place] results) [facility] Respiratory rate 15 br/min 14-20 Normal (applies to 15 br/min [facility] br/min non-numeric - [place] results) [facility] Heart rate 91 bpm 60-100 bpm Normal (applies to 91 bpm [employer] [facility] non-numeric - [place] results) [facility] Vital Signs ed md price ed md albert Bolaños [facility] Reported To - [facility] Oxygen saturation 97 % 94-100 % Normal (applies to 97 % [email or web address] in Blood non-numeric - [place] Postductal by results) [facility] Pulse oxim[facility] Ce nter Mean blood 59 mm[Hg] 59 mm[Hg] [facility] pressure by - [place] Noninvasive [facility] Diastolic blood 39 mm[Hg] 60-90 mmHg 39 mm[Hg] [facility] pressure - [place] [facility] Systolic blood 100 mm[Hg] 90-130 Normal (applies to 100 mm[Hg] [facility] pressure mmHg non-numeric - [place] results) [facility] Heart rate 94 bpm 60-100 bpm Normal (applies to 94 bpm [facility] non-numeric - [place] results) [facility] Oral temperature 98.9 [degF] 96.4-99.1 Normal (applies to 98.9 [degF ] [facility] DegF non-numeric - [place] results) [facility] Oxygen saturation 94 % 94-100 % Normal (applies to 94 % [facility] in Blood non-numeric - [place] Postductal by results) [facility] Pulse oximetry Medical nt Body mass index 36.14 kg/m2 36.14 kg/m2 [facility] (BMI) [Ratio] - [facility] Body weight 102 kg 102 kg [facility] h Measured - [facility] Body height 168 cm 168 cm [facility] h - [facility] Body mass index 36.14 kg/m2 36.14 kg/m2 [facility] Health (BMI) [Ratio] - [facility] Oxygen therapy [facility] [Minimum Data - [place] Set] [facility] Mean blood 100 mm[Hg] 100 mm[Hg] [facility] Health pressure by - [place] Noninvasive [facility] Oxygen saturation 98 % 94-100 % Normal (applies to 98 % [facility] in Blood non-numeric - [place] Postductal by results) [facility] Pulse oxim[facility] Medical nt Oxygen therapy [facility] [Minimum Data - [place] Set] [facility] Heart rate 80 bpm 60-100 bpm Normal (applies to 80 bpm [facility] e Health non-numeric - [place] results) [facility] Respiratory rate 18 br/min 14-20 Normal (applies to 18 br/min [facility]/min non-numeric - [place] results) [facility] Diastolic blood 73 mm[Hg] 60-90 mmHg Normal (applies to 73 mm[Hg] [facility] pressure non-numeric - [place] results) [facility] Systolic blood 153 mm[Hg] 90-130 Above high normal 153 mm[Hg] [facility] pressure mmHg - [facility] Oral temperature 98.2 [degF] 96.4-99.1 Normal (applies to 98.2 [degF ] [facility] non-numeric - [place] results) [facility] Glucose 154 mg/dL 65-100 Above high normal 154 mg/dL [facility] [Moles/volume] in mg/dL - [place] Capillary blood [place] by Glucometer Medical [facility] ter Mean blood 75 mm[Hg] 75 mm[Hg] [facility] pressure by - [place] Noninvasive [facility] Oxygen saturation 98 % 94-100 % Normal (applies to 98 % [facility] in Blood non-numeric - [place] Postductal by results) [facility] Pulse oxim[facility] Medical Ce nter Diastolic blood 54 mm[Hg] 60-90 mmHg 54 mm[Hg] [facility] pressure - [place] [facility] Systolic blood 116 mm[Hg] 90-130 Normal (applies to 116 mm[Hg] [facility] pressure mmHg non-numeric - [place] results) [facility] Oxygen therapy [facility] [Minimum Data - [place] Set] [facility] Heart rate 85 bpm 60-100 bpm Normal (applies to 85 bpm [facility] non-numeric - [place] results) [facility] Respiratory rate 18 br/min 14-20 Normal (applies to 18 br/min [facility] br/min non-numeric - [place] results) [facility] Heart rate 78 bpm 60-100 bpm Normal (applies to 78 bpm [facility] non-numeric - [place] results) [facility] Respiratory rate 18 br/min 14-20 Normal (applies to 18 br/min [facility] br/min non-numeric - [place] results) [facility] Oxygen saturation 94 % 94-100 % Normal (applies to 94 % [facility] in Blood non-numeric - [place] Postductal by results) [facility] Pulse oximetry Medical nter Oxygen therapy [facility]i [facility] [Minimum Data - [place] Set] [facility] Blood pressure [facility]ace He alth measurement site - [place] [facility] Diastolic blood 63 mm[Hg] 60-90 mmHg Normal (applies to 63 mm[Hg] [facility] pressure non-numeric - [place] results) [facility] Systolic blood 129 mm[Hg] 90-130 Normal (applies to 129 mm[Hg] [facility] pressure mmHg non-numeric - [place] results) [facility] Mean blood 85 mm[Hg] 85 mm[Hg] [facility] pressure by - [place] Noninvasive [facility] Glucose 88 mg/dL 65-100 88 mg/dL [facility] [Moles/volume] in mg/dL - [place] Capillary blood [place] by Glucometer Medical [facility] ter Oral temperature 97.7 [degF] 96.4-99.1 Normal (applies to 97.7 [degF ] [facility] DegF non-numeric - [place] results) [facility] Glucose 88 mg/dL 65-100 Normal (applies to 88 mg/dL [facility] [Moles/volume] in mg/dL non-numeric - [place] ar Capillary blood results) [place] by Glucometer Medical [facility] ter Blood pressure [facility] alth measurement site - [facility] Blood pressure [facility] alth measurement site - [facility] Oral temperature 98 [degF] 96.4-99.1 Normal (applies to 98 [degF] [facility] DegF non-numeric - [place] results) [facility] FIO2 21 % 21 % [facility] FIO2 21 % 21 % [facility] Heart rate 72 bpm 60-100 bpm Normal (applies to 72 bpm [facility] Peripheral artery non-numeric - [place] ar by palpation results) [facility] Heart rate 70 bpm 60-100 bpm Normal (applies to 70 bpm [facility] Health Peripheral artery non-numeric - [place] ar by palpation results) [facility] Heart rate 68 bpm 60-100 bpm Normal (applies to 68 bpm [facility] Health Peripheral artery non-numeric - [place] ar by palpation results) [facility] Inhaled oxygen 2 L/min 2 L/min [facility] alth flow rate - [facility] Oxygen Therapy [facility] alth Activity - [facility] Inhaled oxygen 2 L/min 2 L/min [facility] alth flow rate - [facility] Inhaled oxygen 2 L/min 2 L/min [facility] alth flow rate - [facility] Invasive Mean 98 mm[Hg] 98 mm[Hg] [facility] Invasive 65 mm[Hg] 60-90 mmHg Normal (applies to 65 mm[Hg] [facility] Diastolic blood non-numeric - [place] pressure results) [facility] Invasive Systolic 153 mm[Hg] 90-140 Above high normal 153 mm[Hg] [facility] blood pressure mmHg - [facility] Invasive Mean 92 mm[Hg] 92 mm[Hg] [facility] blood pressure - [facility] Invasive 63 mm[Hg] 60-90 mmHg Normal (applies to 63 mm[Hg] [facility] Diastolic blood non-numeric - [place] pressure results) [facility] Invasive Systolic 144 mm[Hg] 90-140 Above high normal 144 mm[Hg] [facility] blood pressure mmHg - [facility] Invasive Mean 101 mm[Hg] 101 mm[Hg] [facility] blood pressure - [facility] Invasive 68 mm[Hg] 60-90 mmHg Normal (applies to 68 mm[Hg] [facility] Diastolic blood non-numeric - [place] pressure results) [facility] Invasive Systolic 153 mm[Hg] 90-140 Above high normal 153 mm[Hg] [facility] blood pressure mmHg - [facility] FIO2 50 % 50 % [facility] Tympanic membrane 97 [degF] 97.9-100.6 Below low normal 97 [degF] N [facility] temperature DegF - [facility] Usual Weight 121 kg 121 kg [facility] Body height [address] [facility] Body mass index 40.11 kg/m2 40.11 kg/m2 [facility] (BMI) [Ratio] [facility] Daily Weight 113.2 kg 113.2 kg [facility] [place] Body Weight 59 kg 59 kg [facility] Daily Weight 113.2 kg 113.2 kg [facility] Heart rate 68 bpm 60-100 bpm Normal (applies to 68 bpm [facility] Cardiac apex by non-numeric - [place] by Auscultation results) [facility] Body height [address] [facility] Daily Weight 110.8 kg 110.8 kg [facility] Body height 168 cm 168 cm [facility] Heart rate 68 bpm 60-100 bpm Normal (applies to 68 bpm [facility] Cardiac apex by non-numeric - [place] by Auscultation results) [facility] Body mass index 39.33 kg/m2 39.33 kg/m2 [facility] (BMI) [Ratio] - [place] [facility] Body weight 111 kg 111 kg [facility] h Measured - [place] [facility] Body mass index 39.33 kg/m2 39.33 kg/m2 [facility] (BMI) [Ratio] - [place] [facility] Heart rate 79 bpm 60-100 bpm Normal (applies to 79 bpm [facility] non-numeric - [place] results) [facility] Mean blood 84 mm[Hg] 84 mm[Hg] [facility] pressure by - [place] Noninvasive [facility] Diastolic blood 69 mm[Hg] 60-90 mmHg Normal (applies to 69 mm[Hg] [facility] pressure non-numeric - [place] results) [facility] Systolic blood 114 mm[Hg] 90-130 Normal (applies to 114 mm[Hg] [facility] pressure mmHg non-numeric - [place] results) [facility] Oral temperature 98.1 [degF] 96.4-99.1 Normal (applies to 98.1 [degF ] [facility] DegF non-numeric - [place] results) [facility] Oxygen saturation 91 % 94-100 % 91 % [facility] in Blood - [place] Postductal by [facility] Pulse oximetry Medical Ce nter Oxygen therapy Elviecastaliastacie [facility] alth [Minimum Data - [place] Set] [facility] Heart rate 80 bpm 60-100 bpm Normal (applies to 80 bpm [facility] non-numeric - [place] results) [facility] Oxygen therapy Nucastaliastacie [facility] [Minimum Data - [place] Set] [facility] Oxygen Therapy [facility] alth Activity - [place] [facility] Oxygen saturation 94 % 94-100 % Normal (applies to 94 % [facility] in Blood non-numeric - [place] Postductal by results) [facility] Pulse oxim[facility] Medical Ce nter Respiratory rate 18 br/min 14-20 Normal (applies to 18 br/min [facility] br/min non-numeric - [place] results) [facility] Heart rate 80 bpm 60-100 bpm Normal (applies to 80 bpm [facility] e Health non-numeric - [place] results) [facility] Inhaled oxygen 2.5 L/min 2.5 L/min [facility] alth flow rate - [place] [facility] Oxygen saturation 97 % 94-100 % Normal (applies to 97 % [facility] in Blood non-numeric - [place] Postductal by results) [facility] Pulse oximetry Medical nter Glucose 106 mg/dL 65-100 Above high normal 106 mg/dL [facility] [Moles/volume] in mg/dL - [place] Capillary blood [place] by Glucometer Medical Ef[facility] ter Mean blood 85 mm[Hg] 85 mm[Hg] [facility] pressure by - [place] Noninvasive [facility] Respiratory rate 20 br/min 14-20 Normal (applies to 20 br/min [facility] br/min non-numeric - [place] results) [facility] Oral temperature 97.3 [degF] 96.4-99.1 Normal (applies to 97.3 [degF ] [facility] DegF non-numeric - [place] results) [facility] Diastolic blood 70 mm[Hg] 60-90 mmHg Normal (applies to 70 mm[Hg] [facility] pressure non-numeric - [place] results) [facility] Systolic blood 117 mm[Hg] 90-130 Normal (applies to 117 mm[Hg] [facility] pressure mmHg non-numeric - [place] results) [facility] Inhaled oxygen 2 L/min 2 L/min [facility] alth flow rate - [place] [facility] Oxygen therapy [place] [facility] alth [Minimum Data - [place] Set] [facility] Glucose 161 mg/dL 65-100 Above high normal 161 mg/dL [facility] [Moles/volume] in mg/dL - [place] Capillary blood [place] by Glucometer Medical [facility] ter Diastolic blood 81 mm[Hg] 60-90 mmHg Normal (applies to 81 mm[Hg] [facility] pressure non-numeric - [place] results) [facility] Systolic blood 138 mm[Hg] 90-130 Above high normal 138 mm[Hg] [facility] pressure mmHg - [place] [facility] Respiratory rate 20 br/min 14-20 Normal (applies to 20 br/min [facility] br/min non-numeric - [place] results) [facility] Mean blood 100 mm[Hg] 100 mm[Hg] [facility] pressure by [facility] Noninvasive [facility] Oral temperature 97.7 [degF] 96.4-99.1 Normal (applies to 97.7 [degF ] [facility] DegF non-numeric - [place] results) [facility] Inhaled oxygen 2 L/min 2 L/min Elviecastaliastacie alth flow rate - [facility] Oxygen Therapy [facility] alth Activity [facility] Glucose 153 mg/dL 65-100 Above high normal 153 mg/dL [facility] [Moles/volume] in mg/dL [facility] Capillary blood [place] by Glucometer Medical [facility] ter Blood pressure [facility] alth measurement site - [facility] Blood pressure Nucastaliastacie He alth measurement site - [facility] Oxygen Therapy [facility] al[facility] Activity - [facility] FIO2 40.00 % 40.00 % [facility] Blood pressure Nuashace He alth measurement site - [facility] Axillary 96.8 [degF] 95.3-99 Normal (applies to 96.8 [degF] [facility] temperature DegF non-numeric - [place] results) [facility] FIO2 40.00 % 40.00 % [facility] FIO2 40.00 % 40.00 % [facility] Axillary 96.6 [degF] 95.3-99 Normal (applies to 96.6 [degF] [facility] temperature DegF non-numeric - [place] results) [facility] Daily Weight 107.72 kg 107.72 kg [facility] Body mass index 38.17 kg/m2 38.17 kg/m2 [facility] (BMI) [Ratio] [facility] Body height [address] [facility] [place] Body Weight 59 kg 59 kg [facility] - [facility] Usual Weight 115 kg 115 kg [facility] - [facility] Axillary 97.1 [degF] 95.3-99 Normal (applies to 97.1 [degF] [facility] temperature DegF non-numeric - [place] results) [facility] Vital Signs MD Kamron Lundy [facility] Reported To - [facility] Rectal 100.6 [degF] 97.3-100 Above high normal 100.6 [degF] [facility] temperature DegF - [facility] Vital Signs MD Kamron Rouseyossi [facility] Reported To - [facility] Vital Signs MD Kamron Lundy [facility] Reported To - [facility] Body mass index 38.17 kg/m2 38.17 kg/m2 [facility] (BMI) [Ratio] - [facility] Body weight 107.72 kg 107.72 kg [facility] Measured - [facility] Body height 168 cm 168 cm [facility] - [facility] Body mass index 38.17 kg/m2 38.17 kg/m2 [facility] (BMI) [Ratio] - [facility] Heart rate 73 bpm 60-100 bpm Normal (applies to [address] [facility] non-numeric - [place] results) [facility] Oxygen saturation 92 % 94-100 % 92 % [facility] in Blood - [place] Postductal by [place] Pulse oxim[facility] Medical Ce nter Oral temperature 97.7 [degF] 96.4-99.1 Normal (applies to 97.7 [degF ] [facility] DegF non-numeric - [place] results) [facility] Mean blood 93 mm[Hg] 93 mm[Hg] [facility] pressure by - [place] Noninvasive [facility] Respiratory rate 18 br/min 14-20 Normal (applies to 18 br/min [facility] br/min non-numeric - [place] results) [facility] Diastolic blood 75 mm[Hg] 60-90 mmHg Normal (applies to 75 mm[Hg] [facility] pressure non-numeric - [place] results) [facility] Systolic blood 127 mm[Hg] 90-130 Normal (applies to 127 mm[Hg] [facility] pressure mmHg non-numeric - [place] results) [facility] Heart rate 71 bpm 60-100 bpm Normal (applies to 71 bpm [facility] non-numeric - [place] results) [facility] Mean blood 87 mm[Hg] 87 mm[Hg] [facility] pressure by - [place] Noninvasive [facility] Oxygen saturation 100 % 94-100 % Normal (applies to 100 % [facility] in Blood non-numeric - [place] Postductal by results) [facility] Pulse oximetry Medical nter Diastolic blood 71 mm[Hg] 60-90 mmHg Normal (applies to 71 mm[Hg] [facility] pressure non-numeric - [place] results) [facility] Systolic blood 119 mm[Hg] 90-130 Normal (applies to 119 mm[Hg] [facility] pressure mmHg non-numeric - [place] results) [facility] Respiratory rate 18 br/min 14-20 Normal (applies to 18 br/min [facility] br/min non-numeric - [place] results) [facility] Oral temperature 97.3 [degF] 96.4-99.1 Normal (applies to 97.3 [degF ] [facility] DegF non-numeric - [place] results) [facility] Glucose 190 mg/dL 65-100 Above high normal 190 mg/dL [facility] [Moles/volume] in mg/dL - [place] Capillary blood [place] by Glucometer Medical [facility] ter Glucose 84 mg/dL 65-100 Normal (applies to 84 mg/dL [facility] [Moles/volume] in mg/dL non-numeric - [place] ar Capillary blood results) [place] by Glucometer Medical [facility] ter Oxygen saturation 96 % 94-100 % Normal (applies to 96 % [facility] in Blood non-numeric - [place] Postductal by results) [place] Pulse oximetry Medical Ce nter Oral temperature 97.8 [degF] 96.4-99.1 Normal (applies to 97.8 [degF ] [facility] DegF non-numeric - [place] results) [facility] Mean blood 75 mm[Hg] 75 mm[Hg] [facility] pressure by - [place] Noninvasive [facility] Heart rate 67 bpm 60-100 bpm Normal (applies to 67 bpm [facility] non-numeric - [place] results) [facility] Diastolic blood 60 mm[Hg] 60-90 mmHg Normal (applies to 60 mm[Hg] [facility] pressure non-numeric - [place] results) [facility] Systolic blood 106 mm[Hg] 90-130 Normal (applies to 106 mm[Hg] [facility] pressure mmHg non-numeric - [place] results) [facility] Respiratory rate 20 br/min 14-20 Normal (applies to 20 br/min [facility] Health br/min non-numeric - [place] results) [facility] Oxygen therapy [facility] alth [Minimum Data - [place] Set] [facility] Glucose 84 mg/dL 65-100 84 mg/dL [facility] [Moles/volume] in mg/dL - [place] Capillary blood [place] by Glucometer [facility] Daily Weight 109 kg 109 kg [facility] Inhaled oxygen 2 L/min 2 L/min [facility] alth flow rate - [place] [facility] Oxygen therapy [facility] Alli alth [Minimum Data - [place] Set] [facility] Oxygen therapy [facility] alth [Minimum Data - [place] Set] [facility] Heart rate 83 bpm 60-100 bpm Normal (applies to 83 bpm [facility] Peripheral artery non-numeric - [place] ar by palpation results) [facility] Heart rate 83 bpm 60-100 bpm Normal (applies to 83 bpm [facility] Peripheral artery non-numeric - [place] ar by palpation results) [facility] Heart rate 84 bpm 60-100 bpm Normal (applies to 84 bpm [facility] Peripheral artery non-numeric - [place] ar by palpation results) [facility] Body height [address] [facility] Daily Weight 112.4 kg 112.4 kg [facility] Body mass index 39.82 kg/m2 39.82 kg/m2 [facility] (BMI) [Ratio] [facility] [place] Body Weight 59 kg 59 kg [facility] Health - [facility] Usual Weight 116 kg 116 kg [facility] Inhaled oxygen 2 L/min 2 L/min Miky Alli alth flow rate - [facility] Inhaled oxygen 2 L/min 2 L/min [facility]vi[facility] Alli alth flow rate - [facility] Daily Weight 112.4 kg 112.4 kg [facility] Blood pressure [facility] alth measurement site - [facility] Blood pressure Nucastaliastacie Alli alth measurement site - [facility] Heart rate 72 bpm 60-100 bpm Normal (applies to 72 bpm [facility] Health Cardiac apex by non-numeric - [place] by Auscultation results) [facility] Blood pressure Nuashastacie alth measurement site - [facility] Heart rate 80 bpm 60-100 bpm Normal (applies to 80 bpm [facility] Cardiac apex by non-numeric - [place] by Auscultation results) [facility] Body height 168 cm 168 cm [facility] - [facility] Body weight 111.2 kg 111.2 kg [facility] Measured - [facility] Oxygen Therapy [facility] alth Activity - [facility] Body mass index 39.13 kg/m2 39.13 kg/m2 [facility] (BMI) [Ratio] - [facility] Body weight 110.45 kg 110.45 kg [facility] Measured - [facility] Body height 168 cm 168 cm [facility] - [facility] Body mass index 39.13 kg/m2 39.13 kg/m2 [facility] (BMI) [Ratio] - [facility] Oxygen Therapy [facility] alth Activity - [facility] Respiratory rate 17 br/min 14-20 Normal (applies to 17 br/min [facility] br/min non-numeric - [place] results) [facility] Heart rate 84 bpm 60-100 bpm Normal (applies to 84 bpm [facility] non-numeric - [place] results) [facility] Respiratory rate 18 br/min 14-20 Normal (applies to 18 br/min [facility] br/min non-numeric - [place] results) [facility] Diastolic blood 84 mm[Hg] 60-90 mmHg Normal (applies to 84 mm[Hg] [facility] pressure non-numeric - [place] results) [facility] Systolic blood 145 mm[Hg] 90-130 Above high normal 145 mm[Hg] [facility] pressure mmHg - [place] [facility] Oxygen saturation 93 % 94-100 % Below low normal 93 % [facility] in Blood - [place] Postductal by [place] Pulse oximetry [facility] nter Heart rate 84 bpm 60-100 bpm Normal (applies to 84 bpm [facility] non-numeric - [place] results) [facility] Mean blood 105 mm[Hg] 105 mm[Hg] [facility] pressure by - [place] Noninvasive [facility] Oral temperature 98 [degF] 96.4-99.1 Normal (applies to 98 [degF] [facility] non-numeric - [place] results) [facility] Glucose 268 mg/dL 65-100 Above high normal 268 mg/dL [facility] [Moles/volume] in mg/dL - [place] Capillary blood [place] by Glucometer [facility] ter Glucose 268 mg/dL 65-100 Above high normal 268 mg/dL [facility] [Moles/volume] in mg/dL - [place] Capillary blood [place] by Glucometer [facility] ter Glucose 268 mg/dL 65-100 Above high normal 268 mg/dL [facility] [Moles/volume] in mg/dL - [place] Capillary blood [place] by Glucometer [facility] ter Mean blood 80 mm[Hg] 80 mm[Hg] [facility] pressure by - [place] Noninvasive [facility] Heart rate 62 bpm 60-100 bpm Normal (applies to 62 bpm [facility] non-numeric - [place] results) [facility] Diastolic blood 62 mm[Hg] 60-90 mmHg Normal (applies to 62 mm[Hg] [facility] pressure non-numeric - [place] results) [facility] Systolic blood 117 mm[Hg] 90-130 Normal (applies to 117 mm[Hg] [facility] pressure mmHg non-numeric - [place] results) [facility] Diastolic blood 83 mm[Hg] 60-90 mmHg Normal (applies to 83 mm[Hg] [facility] pressure non-numeric - [place] results) [facility] Systolic blood 151 mm[Hg] 90-130 Above high normal 151 mm[Hg] [facility] pressure mmHg - [place] [facility] Mean blood 106 mm[Hg] 106 mm[Hg] [facility] pressure by - [place] Noninvasive [facility] Oxygen saturation 99 % 94-100 % Normal (applies to 99 % [facility] in Blood non-numeric - [place] Postductal by results) [place] Pulse oximetry [facility]ter Oral temperature 97.7 [degF] 96.4-99.1 Normal (applies to 97.7 [degF ] [facility] DegF non-numeric - [place] results) [facility] Oxygen therapy [facility] [Minimum Data - [place] Set] [facility] Respiratory rate 18 br/min 14-20 Normal (applies to 18 br/min [facility] br/min non-numeric - [place] results) [facility] Oxygen saturation 93 % 94-100 % Below low normal 93 % [facility] in Blood - [place] Postductal by [place] Pulse oximetry [facility] Oral temperature 97.9 [degF] 96.4-99.1 Normal (applies to 97.9 [degF ] [facility] DegF non-numeric - [place] results) [facility] Daily Weight 121.8 kg 121.8 kg [facility] Oxygen therapy Nuashace He alth [Minimum Data - [place] Set] [facility] Oxygen therapy [facility] al[facility] [Minimum Data - [place] Set] [facility] Daily Weight 119.5 kg 119.5 kg [facility] Blood pressure Nuashace alth measurement site - [facility] Heart rate 89 bpm 60-100 bpm Normal (applies to 89 bpm [facility] Peripheral artery non-numeric - [place] ar by palpation results) [facility] Blood pressure Elviecastaliastacie alth measurement site - [facility] FIO2 21 % 21 % [facility] - [facility] Daily Weight 116.8 kg 116.8 kg [facility] th - [facility] Blood pressure [facility] measurement site - [facility] Inhaled oxygen 2 L/min 2 L/min [place] [facility] flow rate - [facility] Inhaled oxygen 2 L/min 2 L/min [facility] He alth flow rate - [facility] Inhaled oxygen 2 L/min 2 L/min [facility] alth flow rate - [facility] Body mass index 39.13 kg/m2 39.13 kg/m2 [facility] (BMI) [Ratio] - [facility] Body height 168 cm 168 cm [facility] h - [facility] Body weight 110.45 kg 110.45 kg [facility] Measured - [facility] Body mass index 39.13 kg/m2 39.13 kg/m2 [facility] (BMI) [Ratio] - [facility] Oxygen saturation 94 % 94-100 % Normal (applies to 94 % [email or web address] in Blood non-numeric - [place] Postductal by results) [place] Pulse oximetry [facility] Respiratory rate 18 br/min 14-20 Normal (applies to 18 br/min [facility] br/min non-numeric - [place] results) [facility] Oxygen therapy Miky Carson alth [Minimum Data - [place] Set] [facility] Heart rate 77 bpm 60-100 bpm Normal (applies to 77 bpm [email or web address] non-numeric - [place] results) [facility] Respiratory rate 12 br/min 14-20 Below low normal 12 br/min [facility] br/min - [facility] Heart rate 75 bpm 60-100 bpm Normal (applies to 75 bpm [email or web address] non-numeric - [place] results) [facility] Oxygen saturation 95 % 94-100 % Normal (applies to 95 % [facility] in Blood non-numeric - [place] Postductal by results) [place] Pulse oximetry [facility] Oral temperature 97.5 [degF] 96.4-99.1 Normal (applies to 97.5 [degF ] [facility] Health DegF non-numeric - [place] results) [facility] Oxygen therapy Miky Carson alth [Minimum Data - [place] Set] [facility] Blood pressure Nukia Carson alth measurement site - [place] [facility] Diastolic blood 63 mm[Hg] 60-90 mmHg Normal (applies to 63 mm[Hg] [facility] pressure non-numeric - [place] results) [facility] Systolic blood 123 mm[Hg] 90-130 Normal (applies to 123 mm[Hg] [facility] pressure mmHg non-numeric - [place] results) [facility] Mean blood 83 mm[Hg] 83 mm[Hg] [facility] Health pressure by - [place] Noninvasive [facility] Oxygen saturation 95 % 94-100 % Normal (applies to 95 % [facility] [employer] in Blood non-numeric - [place] Postductal by results) [place] Pulse oximetry [facility] nt Heart rate 70 bpm 60-100 bpm Normal (applies to 70 bpm [facility] non-numeric - [place] results) [facility] Respiratory rate 15 br/min 14-20 Normal (applies to 15 br/min [facility] br/min non-numeric - [place] results) [facility] Oxygen therapy Miky Carson alth [Minimum Data - [place] Set] [facility] Blood pressure Nukia Carson alth measurement site - [place] [facility] Diastolic blood 60 mm[Hg] 60-90 mmHg Normal (applies to 60 mm[Hg] [facility] pressure non-numeric - [place] results) [facility] Systolic blood 128 mm[Hg] 90-130 Normal (applies to 128 mm[Hg] [facility] pressure mmHg non-numeric - [place] results) [facility] Mean blood 83 mm[Hg] 83 mm[Hg] [facility] Health pressure by - [place] Noninvasive [facility] Diastolic blood 61 mm[Hg] 60-90 mmHg Normal (applies to 61 mm[Hg] [facility] pressure non-numeric - [place] results) [facility] Systolic blood 128 mm[Hg] 90-130 Normal (applies to 128 mm[Hg] [facility] pressure mmHg non-numeric - [place] results) [facility] Blood pressure Elviekia Carson alth measurement site - [place] [facility] Mean blood 83 mm[Hg] 83 mm[Hg] [facility] pressure by - [place] Noninvasive [facility] Oral temperature 97.4 [degF] 96.4-99.1 Normal (applies to 97.4 [degF ] [facility] DegF non-numeric - [place] results) [facility] Inhaled oxygen 3 L/min 3 L/min [facility] alth flow rate - [facility] Inhaled oxygen 3 L/min 3 L/min [facility] alth flow rate - [facility] Inhaled oxygen 10 L/min 10 L/min [facility] alth flow rate - [facility] FIO2 100 % 100 % [facility] Body temperature 96.3 [degF] 97.9-100.6 Below low normal 96.3 [degF] [facility] - Temporal artery DegF - [facility] FIO2 100 % 100 % [facility] - [facility] Oral temperature 97.6 [degF] 96.4-99.1 Normal (applies to 97.6 [degF ] [facility] DegF non-numeric - [place] results) [facility] Heart rate 78 bpm 60-100 bpm Normal (applies to [address] [facility] Peripheral artery non-numeric - [place]te ar by palpation results) [facility] Body height 167.[address] [facility] Body weight 112.59 kg 112.59 kg [facility] Measured - [facility] Body mass index 40.08 kg/m2 40.08 kg/m2 [facility] (BMI) [Ratio] - [facility] Oxygen saturation 97 % 94-100 % Normal (applies to 97 % [facility] in Blood non-numeric - [place] Postductal by results) [place] Pulse oximetry Medical nter Respiratory rate 18 br/min 14-20 Normal (applies to 18 br/min [facility] br/min non-numeric - [place] results) [facility] Diastolic blood 69 mm[Hg] 60-90 mmHg Normal (applies to 69 mm[Hg] [facility] - [place] results) [facility] Systolic blood 158 mm[Hg] 90-130 Above high normal 158 mm[Hg] [facility] pressure mmHg - [place] [facility] Heart rate 76 bpm 60-100 bpm Normal (applies to 76 bpm [facility] non-numeric - [place] results) [facility] Oral temperature 97.7 [degF] 96.4-99.1 Normal (applies to 97.7 [degF ] [facility] DegF non-numeric - [place] results) [facility] Oxygen therapy [facility] [Minimum Data - [place] Set] [facility] Oral temperature 98.1 [degF] 96.4-99.1 Normal (applies to 98.1 [degF ] [facility] DegF non-numeric - [place] results) [facility] Oxygen saturation 93 % 94-100 % Below low normal 93 % [facility] in Blood - [place] Postductal by [place] Pulse oximetry Medical nter Heart rate 77 bpm 60-100 bpm Normal (applies to 77 bpm [facility] Peripheral artery non-numeric - [place] ar by palpation results) [facility] Diastolic blood 77 mm[Hg] 60-90 mmHg Normal (applies to 77 mm[Hg] [facility] pressure non-numeric - [place] results) [facility] Systolic blood 138 mm[Hg] 90-130 Above high normal 138 mm[Hg] [facility] pressure mmHg - [place] [facility] Diastolic blood 80 mm[Hg] 60-90 mmHg Normal (applies to 80 mm[Hg] [facility] pressure non-numeric - [place] results) [facility] Systolic blood 156 mm[Hg] 90-130 Above high normal 156 mm[Hg] [facility] pressure mmHg - [place] [facility] Heart rate 74 bpm 60-100 bpm Normal (applies to 74 bpm [facility] Peripheral artery non-numeric - [place] ar by palpation results) [facility] Oxygen saturation 94 % 94-100 % Normal (applies to 94 % [facility] in Blood non-numeric - [place] Postductal by results) [place] Pulse oximetry Medical nter Heart rate 77 bpm 60-100 bpm Normal (applies to 77 bpm [facility] Peripheral artery non-numeric - [place] ar by palpation results) [facility] Oral temperature 98.4 [degF] 96.4-99.1 Normal (applies to 98.4 [degF ] [facility] DegF non-numeric - [place] results) [facility] Blood pressure [facility] measurement site - [facility] Blood pressure [facility] measurement site - [facility] Heart rate 87 bpm 60-100 bpm Normal (applies to [address] [facility] non-numeric - [place] results) [facility] Body height 168 cm 168 cm [facility] h - [facility] Body mass index 39.78 kg/m2 39.78 kg/m2 [facility] (BMI) [Ratio] - [facility] Body mass index 39.78 kg/m2 39.78 kg/m2 [facility] (BMI) [Ratio] - [facility] Body weight 112.27 kg 112.27 kg [facility] h Measured - [facility] Oxygen therapy [facility] alth [Minimum Data - [place] Set] [facility] Respiratory rate 19 br/min 14-20 Normal (applies to 19 br/min [facility] br/min non-numeric - [place] results) [facility] Patient Treatment Plan of Care Planned Activity Planned Date Details Description Data Source (s) No data available for [employer] - this section [facility] No data available for [employer] - this section [facility] No data available for [email or web address] - this section [facility] Dilaudid ( 02/05/2020 11:21:06 [facility] [employer]each 0.9% NaCl IV 02/05/2020 10:21:10 [facility] [employer] Dilaudid ( 02/05/2020 10:21:10 [facility] [employer] Methotrexate 2.5 MG Oral 02/05/2020 04:32:00 Pain Doctor - Tablet PM T [facility] Albuterol 0.83 MG/ML 04/17/2019 02:40:00 [facility] - Inhalant Solution PM EDT [facility] Ventolin HFA 90 mcg/inh 04/17/2019 02:37:00 [facility] - inhalation aerosol PM EDT [facility] Ventolin HFA 90 mcg/inh 04/07/2019 12:40:00 [facility] - inhalation aerosol PM EDT [facility] Albuterol 0.83 MG/ML 04/07/2019 12:40:00 [facility] - Inhalant Solution PM EDT [facility] Augmentin 875 mg-125 mg 03/28/2019 01:47:00 [facility] - oral tablet PM EDT [facility] 3 ML liraglutide 6 MG/ML 03/25/2019 01:20:00 [facility] - Pen Injector PM EDT [facility] albuterol Inhaler 03/25/2019 01:19:00 [facility] - PM EDT [facility] Furosemide 40 MG Oral 10/22/2018 10:48:00 [facility] - Tablet AM EDT [facility] Levofloxacin 750 MG Oral 10/22/2018 10:48:00 [facility] - Tablet AM EDT [facility] albuterol C[facility] free 90 10/22/2018 10:48:00 [facility] - mcg/inh inhalation AM EDT [facility] clonazepam 10/19/2018 04:10:00 [facility] - PM EDT [facility] simvastatin 10/19/2018 04:09:00 [facility] - PM EDT [facility] Probiotic Formula 10/19/2018 04:08:00 [facility] - PM EDT [facility] carvedilol 10/19/2018 04:06:00 [facility] - PM EDT [facility] Simvastatin 10 MG Oral 10/09/2018 10:48:00 [facility] - Tablet AM EDT [facility] Auryxia 210 mg oral 10/09/2018 10:46:00 [facility] - tablet AM EDT [facility] predniSONE 10 mg oral 10/09/2018 10:43:00 [facility] - tablet AM EDT [facility] azithromycin 250 mg oral 10/09/2018 10:43:00 [facility] - tablet AM EDT [facility] gabapentin 03/27/2018 02:26:00 [facility] - PM EDT [facility] DuoNeb 10/11/2017 02:45:00 [facility] - PM EDT [facility] Bio-K+ 10/11/2017 02:45:00 [facility] - PM EDT [facility] MiraLax 10/11/2017 02:45:00 [facility] - PM EDT [facility] carvedilol 25 MG Oral 10/04/2017 09:56:00 [facility] - Tablet AM EDT [facility] mupirocin 2% topical 10/04/2017 09:56:00 [facility] - cream AM EDT [facility] calcium acetate 667 MG 10/04/2017 09:56:00 [facility] - Oral Capsule AM EDT [facility] calcium acetate 667 MG 10/04/2017 09:56:00 [facility] - Oral Capsule AM EDT [facility] Vitamin B12 09/02/2013 04:48:00 [facility] - PM EDT [facility]
--- NOTE | 2020-03-14 20:24 | HP ---
Admitting History and Physical - Primary Care Physician PCP: Paul Mayen ([facility]) - Admission Chief Complaint: Hypotension History of Present Illness: This is a 54 y/o female from [facility] with a PMHx of ESRD (T,Th,), HLD, DM, Lymphoma, Pemphigus Vulgaris. Who presents to the ED via ambulance from the dialysis center for hypotension. Patient reports having fever and chills. She reports having rectal pain from a hemorrhoid. Patient denies SOB, dizziness, ISABEL, CP, palpitations, AP, N/V/D. History Source: Patient, Transfer Record Limitations to Obtaining History: No Limitations - Past Medical History Cardiovascular: Yes: Hyperlipdemia Renal/: Yes: Hemodialysis Endocrine: Yes: Diabetes Mellitus Dermatology: Yes: Other (Pemphigus Vulgaris) - Smoking History Smoking history: Never smoked - Alcohol/Substance Use Hx Alcohol Use: No History of Substance Use: reports: None - Social History Usual Living Arrangement: Yes: Custodial ADL: Support Services History of Recent Travel: No Home Medications - Allergies Allergies/Adverse Reactions: Allergies Allergy/AdvReac Type Severity Reaction Status Date / Time midodrine Allergy Verified 03/14/20 15:42 penicillamine Allergy Verified 03/14/20 15:42 piperacillin [From Zosyn] Allergy Verified 03/14/20 15:42 tazobactam [From Zosyn] Allergy Verified 03/14/20 15:42 - Home Medications Home Medications: Ambulatory Orders Acetaminophen [Tylenol] 650 mg PO QID 03/14/20 Diphenhydramine HCl 25 mg PO DAILY 03/14/20 Ergocalciferol (Vitamin D2) [Drisdol] 1,250 mcg PO WEEKLY 03/14/20 Famotidine 10 mg PO DAILY 03/14/20 Ferric Citrate [Auryxia] 210 mg PO TID 03/14/20 Gabapentin [Neurontin] 300 mg PO DAILY 03/14/20 Heparin - 5,000 unit SQ ONCE 03/14/20 Insulin Glargine,Hum.rec.anlog [Lantus Solostar] 10 unit SQ HS 03/14/20 Lidocaine 2% Viscous Oral [Xylocaine 2% Viscous Oral -] 20 ml PO Q4H 03/14/20 Melatonin 5 mg PO HS 03/14/20 Sevelamer Carbonate [Renvela Powder Packet -] 0.8 gm PO TID 03/14/20 Silver Sulfadiazine 1% Top Cr [Silvadene -] 1 applic TP BID 03/14/20 Family Medical History Family History: As Documented Family Hx Diabetes: Brother Review of Systems - Review of Systems Constitutional: reports: Chills, Fever Eyes: reports: No Symptoms HENT: reports: No Symptoms Neck: reports: No Symptoms Cardiovascular: reports: No Symptoms Respiratory: reports: No Symptoms Gastrointestinal: reports: Other (rectal pain) Genitourinary: reports: No Symptoms Breasts: reports: No Symptoms Reported Musculoskeletal: reports: No Symptoms Integumentary: reports: Lesions, Wound Neurological: reports: Weakness Endocrine: reports: No Symptoms Hematology/Lymphatic: reports: No Symptoms Psychiatric: reports: No Symptoms Pain Intensity: 8 Physical Examination Vital Signs: Vital Signs Temperature 98.2 F 03/14/20 15:42 Pulse Rate 89 03/14/20 20:02 Respiratory Rate 20 03/14/20 20:02 Blood Pressure 109/55 L 03/14/20 20:02 O2 Sat by Pulse Oximetry (%) 96 03/14/20 20:02 Constitutional: Yes: Anxious, Mild Distress, Obese Eyes: Yes: Conjunctiva Clear, EOM Intact, PERRL HENT: Yes: Atraumatic, Normocephalic Neck: Yes: Supple, Trachea Midline Cardiovascular: Yes: Regular Rate and Rhythm, S1, S2 Respiratory: Yes: Regular, CTA Bilaterally Gastrointestinal: Yes: Normal Bowel Sounds, Abdomen, Obese, Hemorrhoids. No: Rectal Bleeding ...Rectal Exam: Yes: Hemorrhoids/External Renal/: Yes: WNL Breast(s): Yes: WNL Musculoskeletal: Yes: WNL Edema: Yes Peripheral Pulses WNL: Yes Integumentary: Yes: Erythema, Pressure Ulcer (sacrum Stage II), Venous Stasis Changes Neurological: Yes: Alert, Oriented, Weakness ...Motor Strength: WNL Psychiatric: Yes: WNL, Alert, Oriented Labs: CBC, BMP 03/14/20 16:30 03/14/20 16:30 Laboratory Results - last 24 hr 03/14/20 03/14/20 03/14/20 15:30 16:30 16:30 WBC 9.8 RBC 2.40 L Hgb 8.8 L Hct 26.7 L MCV 111.1 H MCH 36.8 H MCHC 33.1 RDW 19.3 H Plt Count 268 MPV 8.4 Absolute Neuts (auto) 5.9 Neutrophils % 60.5 Neutrophils % (Manual) 48.5 Band Neutrophils % 11.3 Lymphocytes % 16.7 Lymphocytes % (Manual) 14.4 Monocytes % 16.4 H Monocytes % (Manual) 11 H Eosinophils % 5.0 H Eosinophils % (Manual) 8.3 H Basophils % 1.4 Basophils % (Manual) 1.0 Myelocytes % (Man) 0 Promyelocytes % (Man) 0 Blast Cells % (Manual) 0 Nucleated RBC % 1 H Metamyelocytes 0 Hypochromia 0 Platelet Estimate Normal Polychromasia 1+ Poikilocytosis 1+ Basophilic Stippling 1+ Anisocytosis 1+ Microcytosis 1+ Macrocytosis 0 Tear Drop Cells 1+ Ovalocytes 1+ PT with INR 11.00 INR 0.93 PTT (Actin FS) 27.6 Sodium Potassium Chloride Carbon Dioxide Anion Gap BUN Creatinine Est GFR (CKD-EPI)AfAm Est GFR (CKD-EPI)NonAf Random Glucose Lactic Acid Calcium Total Bilirubin AST ALT Alkaline Phosphatase Troponin I Total Protein Albumin Urine Color Yellow Urine Appearance Turbid Urine pH 5.5 Ur Specific [place] >= 1.030 Urine Protein 3+ H Urine Glucose (UA) Negative Urine Ketones 1+ H Urine Blood 3+ H Urine Nitrite Negative Urine Bilirubin Negative Urine Urobilinogen 0.2 Ur Leukocyte Esterase 3+ H Urine WBC (Auto) >100 Urine RBC (Auto) 0-10 Urine Bacteria (Auto) Many 03/14/20 03/14/20 03/14/20 16:30 16:30 21:45 WBC RBC Hgb Hct MCV MCH MCHC RDW Plt Count MPV Absolute Neuts (auto) Neutrophils % Neutrophils % (Manual) Band Neutrophils % Lymphocytes % Lymphocytes % (Manual) Monocytes % Monocytes % (Manual) Eosinophils % Eosinophils % (Manual) Basophils % Basophils % (Manual) Myelocytes % (Man) Promyelocytes % (Man) Blast Cells % (Manual) Nucleated RBC % Metamyelocytes Hypochromia Platelet Estimate Polychromasia Poikilocytosis Basophilic Stippling Anisocytosis Microcytosis Macrocytosis Tear Drop Cells Ovalocytes PT with INR INR PTT (Actin FS) Sodium 135 L Potassium 4.3 Chloride 96 L Carbon Dioxide 32 Anion Gap 6 L BUN 38.8 H Creatinine 6.2 H Est GFR (CKD-EPI)AfAm 8.03 Est GFR (CKD-EPI)NonAf 6.93 Random Glucose 104 Lactic Acid 1.3 1.9 Calcium 9.8 Total Bilirubin 0.3 AST 27 ALT 26 Alkaline Phosphatase 141 H Troponin I < 0.02 Total Protein 6.0 L Albumin 1.9 L Urine Color Urine Appearance Urine pH Ur Specific [place] Urine Protein Urine Glucose (UA) Urine Ketones Urine Blood Urine Nitrite Urine Bilirubin Urine Urobilinogen Ur Leukocyte Esterase Urine WBC (Auto) Urine RBC (Auto) Urine Bacteria (Auto) Intake & Output 03/12/20 03/13/20 03/14/20 03/15/20 23:59 23:59 23:59 23:59 Weight 86.183 kg Current Medications Generic Name Dose Route Start Last Admin Trade Name Freq PRN Reason Stop Dose Admin Acetaminophen 650 mg 03/15/20 03:04 Tylenol - PO Q6H PRN PAIN LEVEL 6-10 [place] Butter/Phenylephrine 1 each 03/14/20 21:11 Preparation H Suppository RC Q6H PRN HEMORRHOIDS Hydrocortisone 1 applic 03/15/20 10:00 Anusol 2.5% Hc Cream - [place] DAILY KALIA Famotidine/Sodium Chloride 20 mg in 50 mls @ 100 mls/hr 03/15/20 03:30 Pepcid 20 Mg Premixed Ivpb - IVPB 03/15/20 03:59 ONCE ONE Imaging - Results Chest X-ray: Image Reviewed EKG: Image Reviewed Problem List - Problems (1) Sepsis Assessment/Plan: Likely secondary to UTI UA- +3 blood, +3 leukocytes, 100 WBC Urine Culture-pending CT reported BP 60s No leukocytosis, no neutrophilia Gentamycin given in ED PCN allergy Levofloxacin HD dosing Appreciate ID consult Monitor CBC, CMP Maintain Map > 65 Monitor vitals Tylenol prn Code(s): A41.9 - SEPSIS, UNSPECIFIED ORGANISM (2) UTI (urinary tract infection) Assessment/Plan: Will treat for Complicated UTI, in light of Sepsis (subjective fever, chills, hypotension at CT) Urine Culture-pending Gentamycin given in ED PCN allergic Levofloxacin Appreciate ID consult Monitor vitals Code(s): N39.0 - URINARY TRACT INFECTION, SITE NOT SPECIFIED Qualifiers: Urinary tract infection type: acute cystitis Hematuria presence: with hematuria Qualified Code(s): N30.01 - Acute cystitis with hematuria (3) ESRD (end stage renal disease) on dialysis Assessment/Plan: HD- ,, Appreciate Nephrology consult- HD Management Avoid Nephrotoxic drugs Monitor CMP Continue current meds Code(s): N18.6 - END STAGE RENAL DISEASE; Z99.2 - DEPENDENCE ON RENAL DIALYSIS (4) HLD (hyperlipidemia) Assessment/Plan: No current med noted in CT records Low Cholesterol Diet Code(s): E78.5 - HYPERLIPIDEMIA, UNSPECIFIED (5) Diabetes mellitus Assessment/Plan: stable BGMs ISS Hold Lantus secondary to Sepsis Monitor CMP Code(s): E11.9 - TYPE 2 DIABETES MELLITUS WITHOUT COMPLICATIONS (6) Pemphigus vulgaris Assessment/Plan: Continue Benadryl prn Wound care Code(s): L10.0 - PEMPHIGUS VULGARIS (7) Decubitus ulcer Assessment/Plan: Wound care Silvadene tp Turn and Position Q2h Code(s): L89.90 - PRESSURE ULCER OF UNSPECIFIED SITE, UNSPECIFIED STAGE Qualifiers: Pressure injury location: sacral region Pressure injury stage: stage 2 Qualified Code(s): L89.152 - Pressure ulcer of sacral region, stage 2 (8) Hemorrhoid Assessment/Plan: Continue Preparation H suppository, topical Pain Management- Tylenol, Morphine Sulfate use judiciously (Severe Pain) Consider Surgical consult if condition worsens Code(s): K64.9 - UNSPECIFIED HEMORRHOIDS (9) Encounter for screening laboratory testing for COVID-19 virus Assessment/Plan: 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 Admitted to [facility] for Sepsis, UTI for further evaluation of their emergent condition. Plan: See problem list FEN Fluid Restriction 1L Replete lytes prn Renal, Low, Na, Diabetic Diet DVT ppx OOB SCDs Heparin SQ Code Status: Full Code Dispo: Requires Inpatient Care Visit type - Emergency Visit Emergency Visit: Yes ED Registration Date: 03/14/20 Care time: The patient presented to the Emergency Department on the above date and was hospitalized for further evaluation of their emergent condition. - New Patient This patient is new to me today: Yes Date on this admission: 03/14/20 - Critical Care Critical Care patient: No
[2020-03-14] MEDS ORDERED: HYDROCORTISONE 2.5% TOPICAL CREAM 30 GM TUBE PR ONE (21:14)
[2020-03-14] MEDS ORDERED: MORPHINE SULFATE 2 MG/ML VIAL IVPUSH ONE (21:45)
[2020-03-14] MEDS ORDERED: MORPHINE SULFATE 2 MG/ML VIAL ONE (22:02)
[2020-03-14] MEDS ORDERED: ZOLPIDEM TARTRATE 5 MG TABLET PO ONE (22:04)
[2020-03-15] MEDS ORDERED: ACETAMINOPHEN 325 MG TABLET (FP) PO PRN (03:04)
[2020-03-15] MEDS ORDERED: FAMOTIDINE 20 MG/50 ML IVPB 20 MG/50 ML MG IVPB ONE (03:30)
[2020-03-15] MEDS ORDERED: MORPHINE SULFATE 2 MG/ML VIAL IVPUSH ONE (03:30)
[2020-03-15] MEDS ORDERED: diphenhydrAMINE HCL 25 MG CAPSULE (FP) PO PRN (04:44)
[2020-03-15 07:00] LABS: BASO % 0.6 % (0-2.0); EOS % 0.1 % (0-4.5); HEMATOCRIT 26.7 % (32.4-45.2); HEMOGLOBIN 8.8 GM/dL (10.7-15.3); LYMPH % 9.8 % (8-40); MCH 36.1 pg (25.7-33.7); MCHC 33.1 g/dl (32.0-36.0); MEAN CELL VOLUME 108.9 fl (80-96); MEAN PLT VOLUME 7.7 fl (7.5-11.1); MONO % 10.1 % (3.8-10.2); NEUT % 79.4 % (42.8-82.8); PLATELET COUNT 281 K/MM3 (134-434); RBC 2.45 M/mm3 (3.60-5.2); RDW 18.9 % (11.6-15.6); WHITE BLOOD COUNT 9.8 K/mm3 (4.0-10.0)
[2020-03-15 07:24] LABS: ALBUMIN 1.9 g/dl (3.4-5.0); BLOOD UREA NITROGEN 46.8 mg/dL (7-18); CALCIUM 9.5 mg/dL (8.5-10.1); CREATININE 6.9 mg/dL (0.55-1.3); MAGNESIUM 2.5 mg/dL (1.8-2.4); POTASSIUM 4.4 mmol/L (3.5-5.1)
[2020-03-15 07:27] LABS: BILIRUBIN,TOTAL 0.4 mg/dL (0.2-1); TOT PROT 5.8 g/dl (6.4-8.2)
[2020-03-15] MEDS ORDERED: PT OWN MED DRAWER 7, Y5N ONE ×5 (08:01→21:24)
[2020-03-15] MEDS: SILVER SULFADIAZINE 1% TOP CREAM 50 GM JAR TP SCH ×2 (10:01→21:21)
[2020-03-15] MEDS: HEPARIN NA (PORCINE) 5,000 UNITS/ML 1ML VIAL SQ SCH ×2 (10:02→21:20)
[2020-03-15] MEDS: HYDROCORTISONE 2.5% TOPICAL CREAM 30 GM TUBE PR SCH (10:03)
[2020-03-15] MEDS: SEVELAMER CARBONATE 0.8 GM POWDER PACKET PO SCH ×3 (10:04→16:48)
[2020-03-15] MEDS: FAMOTIDINE 10 MG TABLET PO SCH (10:05)
--- NOTE | 2020-03-15 13:42 | CON.NEP ---
Consult Consult Specialty:: nephrology Reason for Consultation:: esrd - History of Present Illness History of Present Illness: This is a 54 y/o female from [facility] with a PMHx of ESRD (T,Th,Sa), HLD, DM, Lymphoma, Pemphigus Vulgaris. Who presents to the ED via ambulance from the dialysis center for hypotension. Patient reports having fever and chills. She reports having rectal pain from a hemorrhoid. Patient denies SOB, dizziness, ISABEL, CP, palpitations, AP, N/V/D. She feels better today. Wants to attempt hd tomorrow - History Source History Provided By: Patient, Medical Record - Past Medical History Cardio/Vascular: Yes: Hyperlipdemia Renal/: Yes: Hemodialysis Endocrine: Yes: Diabetes Mellitus Dermatology: Yes: Other (Pemphigus Vulgaris) - Alcohol/Substance Use Hx Alcohol Use: No History of Substance Use: reports: None - Smoking History Smoking history: Never smoked Have you smoked in the past 12 months: No - Social History ADL: Support Services History of Recent Travel: No Home Medications - Allergies Allergies/Adverse Reactions: Allergies Allergy/AdvReac Type Severity Reaction Status Date / Time midodrine Allergy Verified 03/14/20 15:42 penicillamine Allergy Verified 03/14/20 15:42 piperacillin [From Zosyn] Allergy Verified 03/14/20 15:42 tazobactam [From Zosyn] Allergy Verified 03/14/20 15:42 - Home Medications Home Medications: Ambulatory Orders Acetaminophen [Tylenol] 650 mg PO QID 03/14/20 Diphenhydramine HCl 25 mg PO DAILY 03/14/20 Ergocalciferol (Vitamin D2) [Drisdol] 1,250 mcg PO WEEKLY 03/14/20 Famotidine 10 mg PO DAILY 03/14/20 Ferric Citrate [Auryxia] 210 mg PO TID 03/14/20 Gabapentin [Neurontin] 300 mg PO DAILY 03/14/20 Heparin - 5,000 unit SQ ONCE 03/14/20 Insulin Glargine,Hum.rec.anlog [Lantus Solostar] 10 unit SQ HS 03/14/20 Lidocaine 2% Viscous Oral [Xylocaine 2% Viscous Oral -] 20 ml PO Q4H 03/14/20 Melatonin 5 mg PO HS 03/14/20 Sevelamer Carbonate [Renvela Powder Packet -] 0.8 gm PO TID 03/14/20 Silver Sulfadiazine 1% Top Cr [Silvadene -] 1 applic TP BID 03/14/20 Family Medical History Family Hx Cancer: Mother (Breast) Family Hx Coronary Artery Disease: Grandmother (maternal), Mother (HTN), Father (HTN) Family Hx Diabetes: Brother Other Family History: Maternal Aunt- Breast Ca, DM Review of Systems - Review of Systems Constitutional: reports: Malaise, Weakness Eyes: reports: No Symptoms HENT: reports: No Symptoms Neck: reports: No Symptoms Cardiovascular: reports: No Symptoms Respiratory: reports: No Symptoms Gastrointestinal: reports: Abdominal Pain Genitourinary: reports: Burning Breasts: reports: No Symptoms Reported Musculoskeletal: reports: No Symptoms Integumentary: reports: No Symptoms Neurological: reports: No Symptoms Endocrine: reports: No Symptoms Hematology/Lymphatic: reports: No Symptoms Psychiatric: reports: No Symptoms Nephrology Consult - Height Height: 5 ft 6 in - Weight Weight: 190 lb - BMI Body Mass Index (BMI): 30.7 - Lab Results CBC,BMP: CBC, BMP 03/15/20 05:46 03/15/20 05:46 Anion Gap: Anion Gap Anion Gap 9 MMOL/L (8-16) 03/15/20 05:46 - Physical Examination Vital Signs: Vital Signs Temperature 98.7 F 03/15/20 10:00 Pulse Rate 77 03/15/20 10:00 Respiratory Rate 20 03/15/20 10:00 Blood Pressure 117/56 L 03/15/20 10:00 O2 Sat by Pulse Oximetry (%) 95 03/15/20 10:00 Constitutional: Yes: Well Nourished, No Distress, Calm Eyes: Yes: Conjunctiva Clear HENT: Yes: Atraumatic, Normocephalic Neck: Yes: Supple, Trachea Midline Cardiovascular: Yes: Regular Rate and Rhythm Respiratory: Yes: Regular, CTA Bilaterally Gastrointestinal: Yes: Normal Bowel Sounds, Soft Access for Hemodialysis: AV Fistula Musculoskeletal: Yes: WNL Extremities: Yes: WNL Edema: No Integumentary: Yes: Bruising, Rash Neurological: Yes: Alert, Oriented Psychiatric: Yes: Alert, Oriented Assessment/Plan IMPRESSION esrd pemphigus vulgaris anxiety uti macrocytic anemia PLAN agree with antibiotics will dialyze tomorrow check phos b12/folate/tsh MV
--- NOTE | 2020-03-15 15:09 | EKG ---
Test Reason : Blood Pressure : / mmHG Vent. Rate : 089 BPM Atrial Rate : 089 BPM P-R Int : 178 ms QRS Dur : 086 ms QT Int : 358 ms P-R-T Axes : 035 -22 070 degrees QTc Int : 435 ms SINUS RHYTHM WITH PREMATURE ATRIAL COMPLEXES LOW VOLTAGE QRS SEPTAL INFARCT , AGE UNDETERMINED ABNORMAL ECG NO PREVIOUS ECGS AVAILABLE Confirmed by MD Carlisle Daniel ([id number]) on 03/15/2020 3:09:27 PM Referred By: Confirmed By:Oziel Carlisle MD
--- NOTE | 2020-03-15 15:18 | PN ---
Progress Note (short form) - Note Progress Note: events noted pt did not get dialyzed yesterday due hypotension, fever She c/o rectal pain due to hemorrhoids noted to burning urination Vital Signs - 24 hr 03/14/20 03/14/20 03/14/20 15:42 20:02 21:00 Temperature 98.2 F Pulse Rate 93 H Pulse Rate [ 89 Left] Respiratory 20 20 22 H Rate Blood Pressure 101/66 Blood Pressure 109/55 L [Left Arm] O2 Sat by Pulse 99 96 97 Oximetry (%) 03/14/20 03/15/20 03/15/20 23:44 00:00 06:00 Temperature 98.3 F 97.9 F 98 F Pulse Rate 80 95 H 90 Pulse Rate [ Left] Respiratory 20 20 20 Rate Blood Pressure 108/58 L 95/47 L 106/57 L Blood Pressure [Left Arm] O2 Sat by Pulse 97 95 Oximetry (%) 03/15/20 03/15/20 09:00 10:00 Temperature 98.7 F Pulse Rate 77 Pulse Rate [ Left] Respiratory 20 20 Rate Blood Pressure 117/56 L Blood Pressure [Left Arm] O2 Sat by Pulse 95 95 Oximetry (%) Current Medications Generic Name Dose Route Start Last Admin Trade Name Freq PRN Reason Stop Dose Admin Acetaminophen 650 mg 03/15/20 03:04 Tylenol - PO Q6H PRN PAIN LEVEL 6-10 [place] Butter/Phenylephrine 1 each 03/14/20 21:11 Preparation H Suppository RC Q6H PRN HEMORRHOIDS Diphenhydramine HCl 25 mg 03/15/20 04:44 Benadryl - PO DAILY PRN FOR ITCHING Epoetin Juan-epbx 10,000 unit 03/15/20 13:49 Retacrit SQ 03/15/20 13:50 ONCE ONE Famotidine 10 mg 03/15/20 10:00 03/15/20 10:05 Acid Olive Brine Tester PO 10 mg DAILY KALIA Administration Heparin Sodium (Porcine) 5,000 unit 03/15/20 10:00 03/15/20 10:02 Heparin - SQ 5,000 unit BID KALIA Administration Hydrocortisone 1 applic 03/15/20 10:00 03/15/20 10:03 Anusol 2.5% Hc Cream - [place] 1 applic DAILY KALIA Administration Sodium Chloride 250 mls @ 3,000 mls/hr 03/15/20 13:49 Normal Saline - IV 03/16/20 13:49 PRN PRN Hypotension during Dialysis Melatonin 5 mg 03/15/20 22:00 Melatonin PO HS KALIA Sevelamer Carbonate 0.8 gm 03/15/20 08:00 03/15/20 11:46 Renvela Powder Packet - PO 0.8 gm TIDCM KALIA Administration Silver Sulfadiazine 1 applic 03/15/20 10:00 03/15/20 10:01 Silvadene - TP 1 applic BID KALIA Administration Laboratory Results - last 24 hr 03/14/20 03/14/20 03/14/20 15:30 16:30 16:30 WBC 9.8 RBC 2.40 L Hgb 8.8 L Hct 26.7 L MCV 111.1 H MCH 36.8 H MCHC 33.1 RDW 19.3 H Plt Count 268 MPV 8.4 Absolute Neuts (auto) 5.9 Neutrophils % 60.5 Neutrophils % (Manual) 48.5 Band Neutrophils % 11.3 Lymphocytes % 16.7 Lymphocytes % (Manual) 14.4 Monocytes % 16.4 H Monocytes % (Manual) 11 H Eosinophils % 5.0 H Eosinophils % (Manual) 8.3 H Basophils % 1.4 Basophils % (Manual) 1.0 Myelocytes % (Man) 0 Promyelocytes % (Man) 0 Blast Cells % (Manual) 0 Nucleated RBC % 1 H Metamyelocytes 0 Hypochromia 0 Platelet Estimate Normal Polychromasia 1+ Poikilocytosis 1+ Basophilic Stippling 1+ Anisocytosis 1+ Microcytosis 1+ Macrocytosis 0 Tear Drop Cells 1+ Ovalocytes 1+ PT with INR 11.00 INR 0.93 PTT (Actin FS) 27.6 Sodium Potassium Chloride Carbon Dioxide Anion Gap BUN Creatinine Est GFR (CKD-EPI)AfAm Est GFR (CKD-EPI)NonAf Random Glucose Lactic Acid Calcium Magnesium Total Bilirubin AST ALT Alkaline Phosphatase Troponin I Total Protein Albumin Urine Color Yellow Urine Appearance Turbid Urine pH 5.5 Ur Specific [place] >= 1.030 Urine Protein 3+ H Urine Glucose (UA) Negative Urine Ketones 1+ H Urine Blood 3+ H Urine Nitrite Negative Urine Bilirubin Negative Urine Urobilinogen 0.2 Ur Leukocyte Esterase 3+ H Urine WBC (Auto) >100 Urine RBC (Auto) 0-10 Urine Bacteria (Auto) Many 03/14/20 03/14/20 03/14/20 16:30 16:30 21:45 WBC RBC Hgb Hct MCV MCH MCHC RDW Plt Count MPV Absolute Neuts (auto) Neutrophils % Neutrophils % (Manual) Band Neutrophils % Lymphocytes % Lymphocytes % (Manual) Monocytes % Monocytes % (Manual) Eosinophils % Eosinophils % (Manual) Basophils % Basophils % (Manual) Myelocytes % (Man) Promyelocytes % (Man) Blast Cells % (Manual) Nucleated RBC % Metamyelocytes Hypochromia Platelet Estimate Polychromasia Poikilocytosis Basophilic Stippling Anisocytosis Microcytosis Macrocytosis Tear Drop Cells Ovalocytes PT with INR INR PTT (Actin FS) Sodium 135 L Potassium 4.3 Chloride 96 L Carbon Dioxide 32 Anion Gap 6 L BUN 38.8 H Creatinine 6.2 H Est GFR (CKD-EPI)AfAm 8.03 Est GFR (CKD-EPI)NonAf 6.93 Random Glucose 104 Lactic Acid 1.3 1.9 Calcium 9.8 Magnesium Total Bilirubin 0.3 AST 27 ALT 26 Alkaline Phosphatase 141 H Troponin I < 0.02 Total Protein 6.0 L Albumin 1.9 L Urine Color Urine Appearance Urine pH Ur Specific [place] Urine Protein Urine Glucose (UA) Urine Ketones Urine Blood Urine Nitrite Urine Bilirubin Urine Urobilinogen Ur Leukocyte Esterase Urine WBC (Auto) Urine RBC (Auto) Urine Bacteria (Auto) 03/15/20 03/15/20 05:46 05:46 WBC 9.8 RBC 2.45 L Hgb 8.8 L Hct 26.7 L MCV 108.9 H MCH 36.1 H MCHC 33.1 RDW 18.9 H Plt Count 281 MPV 7.7 Absolute Neuts (auto) 7.8 Neutrophils % 79.4 D Neutrophils % (Manual) Band Neutrophils % Lymphocytes % 9.8 D Lymphocytes % (Manual) Monocytes % 10.1 Monocytes % (Manual) Eosinophils % 0.1 D Eosinophils % (Manual) Basophils % 0.6 Basophils % (Manual) Myelocytes % (Man) Promyelocytes % (Man) Blast Cells % (Manual) Nucleated RBC % 0 Metamyelocytes Hypochromia Platelet Estimate Polychromasia Poikilocytosis Basophilic Stippling Anisocytosis Microcytosis Macrocytosis Tear Drop Cells Ovalocytes PT with INR INR PTT (Actin FS) Sodium 133 L Potassium 4.4 Chloride 98 Carbon Dioxide 27 Anion Gap 9 BUN 46.8 H Creatinine 6.9 H Est GFR (CKD-EPI)AfAm 7.06 Est GFR (CKD-EPI)NonAf 6.09 Random Glucose 189 H Lactic Acid Calcium 9.5 Magnesium 2.5 H Total Bilirubin 0.4 AST 13 L ALT 20 Alkaline Phosphatase 133 H Troponin I Total Protein 5.8 L Albumin 1.9 L Urine Color Urine Appearance Urine pH Ur Specific [place] Urine Protein Urine Glucose (UA) Urine Ketones Urine Blood Urine Nitrite Urine Bilirubin Urine Urobilinogen Ur Leukocyte Esterase Urine WBC (Auto) Urine RBC (Auto) Urine Bacteria (Auto) S1 S2 RRR Lungs decreased Abd- soft, NT diffuse skin lesions Ext - no edema PLAN Received Vanco and GM in ER spoke to ID and Renal Cultures done COVID 19 pending continue with meds Problem List - Problems (1) Diabetes mellitus Code(s): E11.9 - TYPE 2 DIABETES MELLITUS WITHOUT COMPLICATIONS (2) ESRD (end stage renal disease) on dialysis Code(s): N18.6 - END STAGE RENAL DISEASE; Z99.2 - DEPENDENCE ON RENAL DIALYSIS (3) Encounter for screening laboratory testing for COVID-19 virus Code(s): Z11.59 - ENCOUNTER FOR SCREENING FOR OTHER VIRAL DISEASES (4) HLD (hyperlipidemia) Code(s): E78.5 - HYPERLIPIDEMIA, UNSPECIFIED (5) Hemorrhoid Code(s): K64.9 - UNSPECIFIED HEMORRHOIDS (6) Hypotension Code(s): I95.9 - HYPOTENSION, UNSPECIFIED Qualifiers: Hypotension type: unspecified hypotension type Qualified Code(s): I95.9 - Hypotension, unspecified (7) Pemphigus vulgaris Code(s): L10.0 - PEMPHIGUS VULGARIS (8) Sepsis Code(s): A41.9 - SEPSIS, UNSPECIFIED ORGANISM (9) UTI (urinary tract infection) Code(s): N39.0 - URINARY TRACT INFECTION, SITE NOT SPECIFIED Qualifiers: Urinary tract infection type: acute cystitis Hematuria presence: with hematuria Qualified Code(s): N30.01 - Acute cystitis with hematuria
--- NOTE | 2020-03-15 17:23 | CON.GI ---
Consult Consult Specialty:: GI Referred by:: Hospitalist service Reason for Consultation:: rectal pain - History of Present Illness Chief Complaint: Sent from [place] for evaluation of hypotension History of Present Illness: 54F admitted from [facility] for evaluation of hypotension. Asked to evaluate rectal pain. has been having pain externally for about 2 weeks at the [facility] and feels as though "something is stuck there." Believes that she has had multiple colonoscopies in her life at [facility] with her gastroente rologist, the last being 04/06. She believes that it was normal. She also has had an upper endoscopy in the past. She believes that she was treated with pepccid for an ulcer. she denies rectal bleeding / diarrhea. Was advised by her nurse that she had external hemorrhoids that are being treated with anusol cream but does not seem to be helping. Was recently transferred to [facility] from [facility] for further treatment of Bullous Pemphigus. Was discharged to [facility] 2 weeks ago for rehab. She explains that she is heading home to [place] after this admission to [facility]. 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 2 toe amputations: right foot. Peritoneal dialysis catheter placement with removal - Alcohol/Substance Use Hx Alcohol Use: No History of Substance Use: reports: None - Smoking History Smoking history: Never smoked Have you smoked in the past 12 months: No - Social History Usual Living Arrangement: Alone () ADL: Support Services Place of : [facility] History of Recent Travel: No Home Medications - Allergies Allergies/Adverse Reactions: Allergies Allergy/AdvReac Type Severity Reaction Status Date / Time midodrine Allergy Verified 03/14/20 15:42 penicillamine Allergy Verified 03/14/20 15:42 piperacillin [From Zosyn] Allergy Verified 03/14/20 15:42 tazobactam [From Zosyn] Allergy Verified 03/14/20 15:42 - Home Medications Home Medications: Ambulatory Orders Acetaminophen [Tylenol] 650 mg PO QID 03/14/20 Diphenhydramine HCl 25 mg PO DAILY 03/14/20 Ergocalciferol (Vitamin D2) [Drisdol] 1,250 mcg PO WEEKLY 03/14/20 Famotidine 10 mg PO DAILY 03/14/20 Ferric Citrate [Auryxia] 210 mg PO TID 03/14/20 Gabapentin [Neurontin] 300 mg PO DAILY 03/14/20 Heparin - 5,000 unit SQ ONCE 03/14/20 Insulin Glargine,Hum.rec.anlog [Lantus Solostar] 10 unit SQ HS 03/14/20 Lidocaine 2% Viscous Oral [Xylocaine 2% Viscous Oral -] 20 ml PO Q4H 03/14/20 Melatonin 5 mg PO HS 03/14/20 Sevelamer Carbonate [Renvela Powder Packet -] 0.8 gm PO TID 03/14/20 Silver Sulfadiazine 1% Top Cr [Silvadene -] 1 applic TP BID 03/14/20 Family Medical History Family Hx Cancer: Mother (Breast) Family Hx Coronary Artery Disease: Grandmother (maternal), Mother (HTN), Father (HTN) Family Hx Diabetes: Brother Other Family History: Mother: alive: healthy. Father: : ruptured AAA age 79. 1 brother / 1 sister: healthy. 3 sons, 1 daughter: healthy. Maternal Aunt- Breast Ca, DM. No family history of colorectal cancer or other GI malignancy Review of Systems - Review of Systems Constitutional: denies: Chills Respiratory: denies: Cough Gastrointestinal: reports: Constipation. denies: Abdominal Pain, Rectal Bleeding, Vomiting, Vomiting Blood Physical Exam-GI Vital Signs: Vital Signs Temperature 97.6 F 03/15/20 14:00 Pulse Rate 93 H 03/15/20 14:00 Respiratory Rate 03/15/20 10:00 Blood Pressure 104/50 L 03/15/20 14:00 O2 Sat by Pulse Oximetry (%) 95 03/15/20 10:00 Constitutional: Yes: Calm Eyes: No: Sclera Icterus Cardiovascular: Yes: Regular Rate and Rhythm Respiratory: Yes: CTA Bilaterally Gastrointestinal Inspection: No: Distention ...Auscultate: Yes: Normoactive Bowel Sounds ...Palpate: No: Hepatomegaly, Splenomegaly, Tenderness ...Percussion: No: Tympanitic ...Rectal Exam: Yes: Other (Geosciences Professor present: + tender skin tags, particularly the one at the 6 o'clock position, no masses, copious soft fecal impaction in rectal vault.) Extremities: Yes: Other (stasis changes bilateral LE) Edema: Yes Edema: LLE: 1+, RLE: 1+ Neurological: Yes: Alert Labs: CBC, BMP 03/15/20 05:46 03/15/20 05:46 INR, PTT INR 0.93 (0.83-1.09) 03/14/20 16:30 Problem List - Problems (1) Anorectal pain Assessment/Plan: painful skin tages noted externally, also with soft fecal impaction Advise: Warm sitz baths Surgical evaluation continue Anusol for now MiraLAX 17g PO BID. Senna 2 pills nightly She is deferring mineral oil enema at this time and would not tolerate tap water enema. should not have mineral oil enema given Will need outpatient follow-up with her roulette dealer as an outpatient and ideally a colorectal surgeon Code(s): K62.89 - OTHER SPECIFIED DISEASES OF ANUS AND RECTUM
[2020-03-15] MEDS ORDERED: SENNOSIDES 8.6MG TABLET (FP) PO PRN (17:33)
[2020-03-15] MEDS: LIDOCAINE 2.5%/PRILOCAINE 2.5% 30 GRAM TUBE TP SCH ×2 (17:42→21:36)
[2020-03-15] MEDS: POLYETHYLENE GLYCOL 3350 119 GM BTL PO SCH (17:42)
[2020-03-15] MEDS: MELATONIN 5 MG TABLETS PO SCH (21:20)
[2020-03-15] MEDS: PHENYLEPHRINE HCL/COCOA BUTTER SUPPOSITORY RC PRN (21:36)
--- NOTE | 2020-03-15 22:01 | PN ---
Progress Note (short form) - Note Progress Note: ID CONSULT DICTATED
[2020-03-16] MEDS: SEVELAMER CARBONATE 0.8 GM POWDER PACKET PO SCH ×3 (08:26→18:03)
--- NOTE | 2020-03-16 08:30 | CONS ---
INFECTIOUS DISEASE CONSULTATION DATE OF CONSULTATION: DATE OF DICTATION: 03/15/2020 HISTORY: The patient is a 54-year-old female with a history of end-stage renal disease on hemodialysis, pemphigus vulgaris, evaluated for possible sepsis. She was admitted from the detention on March 14, 2020, after having an episode of hypotension at dialysis. She had gone for her regular session of dialysis, however, was unable to complete a complete session because of her hypotension. She was transferred to the emergency room where she was evaluated. A Arzate catheter was placed and grossly purulent urine was obtained. She was empirically treated with vancomycin and gentamicin. At the present time she is awake and alert. She does make urine despite being on dialysis and has reported some dysuria. She denies any chest pain, shortness of breath, cough or sputum production. PAST MEDICAL HISTORY: Positive for end-stage renal disease on hemodialysis, lymphoma, pemphigus vulgaris, diabetes mellitus, hyperlipidemia. ALLERGIES: MIDODRINE, PENICILLAMINE and ZOSYN. SOCIAL HISTORY: Resides in a long term facility at the present time. She is a nonsmoker, nondrinker. SYSTEMS REVIEW: Neurologic: No loss of consciousness, seizure activity, focal weakness. Cardiac: Negative chest pain or palpitations. Respiratory: Negative cough or sputum production. Gastrointestinal: Positive for diarrhea. Genitourinary: End-stage renal disease on dialysis. PRESENT MEDICATIONS: Include vancomycin, gentamicin, Benadryl, Epogen, Neurontin, morphine. LABORATORY DATA: White count 9.8, hematocrit 26.7, platelets 281. BUN 46, creatinine 6.9, total bilirubin 0.4, alkaline phosphatase 133, AST 13. Urine analysis greater than 100 white cells. COVID-19 PCR pending. Blood and urine cultures are pending. Chest x-ray: No infiltrate noted. PHYSICAL EXAMINATION: General: She is awake and alert. She is supine in bed in no acute respiratory distress. Breathing is nonlabored. Vital Signs: Temperature 97.6, blood pressure 104/50, pulse 93 regular, respirations 18 per minute. HEENT: Sclerae are anicteric. Heart: Sounds S1, S2. Lungs: Clear. Abdomen: Soft, nontender. Extremities: Positive for edema. Positive venous stasis dermatitis. There are numerous healed lesions with scarring secondary to previous pemphigus. There are no infected skin lesions noted. IMPRESSION: 1. Hypotension, rule out sepsis. 2. Urinary tract infection, rule out sepsis secondary to urinary tract infection. 3. End-stage renal disease on hemodialysis. 4. History of pemphigus on low-dose prednisone. Await sepsis workup. Patient has been given stat doses of vancomycin and gentamicin. Await culture results. Will follow. Thank you for the kind referral. RUTH CHARLES M.D. [id number]
[2020-03-16] MEDS: FAMOTIDINE 10 MG TABLET PO SCH (10:26)
[2020-03-16] MEDS: HYDROCORTISONE 2.5% TOPICAL CREAM 30 GM TUBE PR SCH (10:26)
[2020-03-16] MEDS: SILVER SULFADIAZINE 1% TOP CREAM 50 GM JAR TP SCH ×2 (10:27→22:03)
[2020-03-16] MEDS: LIDOCAINE 2.5%/PRILOCAINE 2.5% 30 GRAM TUBE TP SCH (10:27)
[2020-03-16] MEDS: HEPARIN NA (PORCINE) 5,000 UNITS/ML 1ML VIAL SQ SCH ×2 (10:27→21:59)
[2020-03-16] MEDS: GABAPENTIN 300 MG CAPSULE PO SCH (10:27)
[2020-03-16] MEDS: POLYETHYLENE GLYCOL 3350 119 GM BTL PO SCH (10:27)
[2020-03-16] MEDS ORDERED: EPOETIN ALFA-EPBX 10,000 UNIT/ML VIAL IVPUSH ONE (11:00)
[2020-03-16] MEDS ORDERED: SODIUM CHLORIDE 250 ML IV PRN (11:00)
--- NOTE | 2020-03-16 11:08 | PN ---
Progress Note (short form) - Note Progress Note: RENAL pt is awake and alert comfortable happy that she walked today Last Vital Signs Temp Pulse Resp BP Pulse Ox 98 F 85 18 95/40 L 96 03/16/20 05:36 03/16/20 05:36 03/16/20 05:36 03/16/20 05:36 03/16/20 05:36 lungs clear cvs s1s2 rr abd soft ext no edema neuro a+ox3 CBC, BMP 03/15/20 05:46 03/15/20 05:46 Current Medications Generic Name Dose Route Start Last Admin Trade Name Freq PRN Reason Stop Dose Admin Acetaminophen 650 mg 03/15/20 03:04 Tylenol - PO Q6H PRN PAIN LEVEL 6-10 [place] Butter/Phenylephrine 1 each 03/14/20 21:11 03/15/20 21:36 Preparation H Suppository RC 1 each Q6H PRN Administration HEMORRHOIDS Diphenhydramine HCl 25 mg 03/15/20 04:44 Benadryl - PO DAILY PRN FOR ITCHING Famotidine 10 mg 03/15/20 10:00 03/16/20 10:26 Acid Fish Farmer PO Not Given DAILY [facility] Gabapentin 300 mg 03/16/20 10:00 03/16/20 10:27 Neurontin - PO Not Given DAILY [facility] Heparin Sodium (Porcine) 5,000 unit 03/15/20 10:00 03/16/20 10:27 Heparin - SQ 5,000 unit BID [facility] Administration Hydrocortisone 1 applic 03/15/20 10:00 03/16/20 10:26 Anusol 2.5% Hc Cream - [place] 1 applic DAILY [facility] Administration Lidocaine/Prilocaine 1 applic 03/15/20 16:00 03/16/20 10:27 Lidocaine-Prilocaine Cream TP 1 applic DAILY [facility] Administration Melatonin 5 mg 03/15/20 22:00 03/15/20 21:20 Melatonin PO 5 mg HS [facility] Administration Polyethylene Glycol 17 gm 03/15/20 17:45 03/16/20 10:27 Miralax (For Daily Use) - PO 17 gm DAILY [facility] Administration Senna 2 tab 03/15/20 17:33 Senna - PO HS PRN CONSTIPATION Sevelamer Carbonate 0.8 gm 03/15/20 08:00 03/16/20 08:26 Renvela Powder Packet - PO Not Given TIDCM [facility] Silver Sulfadiazine 1 applic 03/15/20 10:00 03/16/20 10:27 Silvadene - TP 1 applic BID [facility] Administration IMPRESSION esrd uti pemphigus vulgaris PLAN continue antibiotics dialysis today will give DAYTON MV
--- NOTE | 2020-03-16 13:51 | PN ---
Progress Note, Physician History of Present Illness: Patient seen and examined today. Chart is reviewed. Awake and comfortable. Denies pain. Afebrile. Going to be dialyzed today - Current Medication List Current Medications: Active Medications Acetaminophen (Tylenol -) 650 mg PO Q6H PRN PRN Reason: PAIN LEVEL 6-10 [place] Butter/Phenylephrine (Preparation H Suppository) 1 each RC Q6H PRN PRN Reason: HEMORRHOIDS Last Admin: 03/15/20 21:36 Dose: 1 each Documented by: Diphenhydramine HCl (Benadryl -) 25 mg PO DAILY PRN PRN Reason: FOR ITCHING Famotidine (Acid Collective Bargaining Specialist) 10 mg PO DAILY [facility] Last Admin: 03/16/20 10:26 Dose: Not Given Documented by: Gabapentin (Neurontin -) 300 mg PO DAILY [facility] Last Admin: 03/16/20 10:27 Dose: Not Given Documented by: Heparin Sodium (Porcine) (Heparin -) 5,000 unit SQ BID [facility] Last Admin: 03/16/20 10:27 Dose: 5,000 unit Documented by: Hydrocortisone (Anusol 2.5% Hc Cream -) 1 applic [place] DAILY [facility] Last Admin: 03/16/20 10:26 Dose: 1 applic Documented by: Lidocaine/Prilocaine (Lidocaine-Prilocaine Cream) 1 applic TP DAILY [facility] Last Admin: 03/16/20 10:27 Dose: 1 applic Documented by: Melatonin (Melatonin) 5 mg PO HS [facility] Last Admin: 03/15/20 21:20 Dose: 5 mg Documented by: Polyethylene Glycol (Miralax (For Daily Use) -) 17 gm PO DAILY [facility] Last Admin: 03/16/20 10:27 Dose: 17 gm Documented by: Senna (Senna -) 2 tab PO HS PRN PRN Reason: CONSTIPATION Sevelamer Carbonate (Renvela Powder Packet -) 0.8 gm PO TIDCM [facility] Last Admin: 03/16/20 08:26 Dose: Not Given Documented by: Silver Sulfadiazine (Silvadene -) 1 applic TP BID [facility] Last Admin: 03/16/20 10:27 Dose: 1 applic Documented by: - Objective Vital Signs: Vital Signs Temperature 98 F 03/16/20 05:36 Pulse Rate 87 03/16/20 12:35 Respiratory Rate 18 03/16/20 12:35 Blood Pressure 97/50 L 03/16/20 12:35 O2 Sat by Pulse Oximetry (%) 96 03/16/20 05:36 Constitutional: Yes: No Distress, Calm Neck: Yes: Supple Cardiovascular: Yes: Regular Rate and Rhythm Respiratory: Yes: Diminished Gastrointestinal: Yes: Soft Edema: No Labs: CBC, BMP 03/15/20 05:46 03/15/20 05:46 INR, PTT INR 0.93 (0.83-1.09) 03/14/20 16:30 Problem List - Problems (1) Anorectal pain Code(s): K62.89 - OTHER SPECIFIED DISEASES OF ANUS AND RECTUM (2) Decubitus ulcer Code(s): L89.90 - PRESSURE ULCER OF UNSPECIFIED SITE, UNSPECIFIED STAGE Qualifiers: Pressure injury location: sacral region Pressure injury stage: stage 2 Qualified Code(s): L89.152 - Pressure ulcer of sacral region, stage 2 (3) Diabetes mellitus Code(s): E11.9 - TYPE 2 DIABETES MELLITUS WITHOUT COMPLICATIONS (4) ESRD (end stage renal disease) on dialysis Code(s): N18.6 - END STAGE RENAL DISEASE; Z99.2 - DEPENDENCE ON RENAL DIALYSIS (5) Encounter for screening laboratory testing for COVID-19 virus Code(s): Z11.59 - ENCOUNTER FOR SCREENING FOR OTHER VIRAL DISEASES (6) HLD (hyperlipidemia) Code(s): E78.5 - HYPERLIPIDEMIA, UNSPECIFIED (7) Hemorrhoid Code(s): K64.9 - UNSPECIFIED HEMORRHOIDS (8) Hypotension Code(s): I95.9 - HYPOTENSION, UNSPECIFIED Qualifiers: Hypotension type: unspecified hypotension type Qualified Code(s): I95.9 - Hypotension, unspecified (9) Pemphigus vulgaris Code(s): L10.0 - PEMPHIGUS VULGARIS (10) UTI (urinary tract infection) Code(s): N39.0 - URINARY TRACT INFECTION, SITE NOT SPECIFIED Qualifiers: Urinary tract infection type: acute cystitis Hematuria presence: with hematuria Qualified Code(s): N30.01 - Acute cystitis with hematuria Assessment/Plan Clinically stable continue present care Follow up cultures Dialysis as per renal Patient received antibiotics--- vancomycin and gentamicin yesterday ID following Patient also expresses desire----that she would like to be discharged home--- instead of long-term I also discussed with returned case inspector Will follow
[2020-03-16] MEDS: AMINO ACIDS/PROTEIN HYDROLYS 30 ML LIQUID.PKT PO SCH (18:03)
[2020-03-16] MEDS ORDERED: LORazepam 0.5 MG TABLET PO ONE (21:00)
[2020-03-16] MEDS: MELATONIN 5 MG TABLETS PO SCH (21:59)
[2020-03-16] MEDS ORDERED: PT OWN MED DRAWER 7, Y5N ONE (22:02)
[2020-03-16] MEDS ORDERED: GENTAMICIN 80 MG PREMIXED IVPB 80 MG/100 ML BAG IVPB ONE (22:49)
[2020-03-16] MEDS ORDERED: VANCOMYCIN 1 GRAM (PRE-DOCKED) 1,000 MG/250 ML BAG IVPB ONE (22:49)
--- NOTE | 2020-03-16 22:54 | PN ---
Progress Note, Physician Chief Complaint: AWAKE, ALERT NO ACUTE DISTRESS AFEBRILE C/S PENDING - Current Medication List Current Medications: Active Medications Acetaminophen (Tylenol -) 650 mg PO Q6H PRN PRN Reason: PAIN LEVEL 6-10 Amino Acids (Prosource No Carb Liquid Pkt) 30 ml PO BID@0800,1730 [facility] Last Admin: 03/16/20 18:03 Dose: 30 ml Documented by: [place] Butter/Phenylephrine (Preparation H Suppository) 1 each RC Q6H PRN PRN Reason: HEMORRHOIDS Last Admin: 03/15/20 21:36 Dose: 1 each Documented by: Diphenhydramine HCl (Benadryl -) 25 mg PO DAILY PRN PRN Reason: FOR ITCHING Famotidine (Acid Airport Operations Manager) 10 mg PO DAILY [facility] Last Admin: 03/16/20 10:26 Dose: Not Given Documented by: Gabapentin (Neurontin -) 300 mg PO DAILY [facility] Last Admin: 03/16/20 10:27 Dose: Not Given Documented by: Heparin Sodium (Porcine) (Heparin -) 5,000 unit SQ BID [facility] Last Admin: 03/16/20 21:59 Dose: Not Given Documented by: Hydrocortisone (Anusol 2.5% Hc Cream -) 1 applic NE DAILY [facility] Last Admin: 03/16/20 10:26 Dose: 1 applic Documented by: Vancomycin HCl 1,000 mg/ (Dextrose) 250 mls @ 166.667 mls/hr IVPB ONCE ONE; Protocol Stop: 03/17/20 00:18 Gentamicin Sulfate/Sodium Chloride (Garamycin 80 Mg Premixed Ivpb -) 80 mg in 100 mls @ 100 mls/hr IVPB ONCE ONE; Protocol Stop: 03/16/20 23:48 Lidocaine/Prilocaine (Lidocaine-Prilocaine Cream) 1 applic TP DAILY [facility] Last Admin: 03/16/20 10:27 Dose: 1 applic Documented by: Melatonin (Melatonin) 5 mg PO HS [facility] Last Admin: 03/16/20 21:59 Dose: 5 mg Documented by: Polyethylene Glycol (Miralax (For Daily Use) -) 17 gm PO DAILY [facility] Last Admin: 03/16/20 10:27 Dose: 17 gm Documented by: Senna (Senna -) 2 tab PO HS PRN PRN Reason: CONSTIPATION Sevelamer Carbonate (Renvela Powder Packet -) 0.8 gm PO TIDCM [facility] Last Admin: 03/16/20 18:03 Dose: 0.8 gm Documented by: Silver Sulfadiazine (Silvadene -) 1 applic TP BID [facility] Last Admin: 03/16/20 22:03 Dose: 1 applic Documented by: - Objective Vital Signs: Vital Signs Temperature 98.0 F 03/16/20 18:00 Pulse Rate 98 H 03/16/20 18:00 Respiratory Rate 20 03/16/20 18:00 Blood Pressure 90/49 L 03/16/20 18:00 O2 Sat by Pulse Oximetry (%) 95 03/16/20 21:00 Constitutional: Yes: No Distress Eyes: Yes: Conjunctiva Clear Cardiovascular: Yes: Regular Rate and Rhythm, S1, S2 Respiratory: Yes: CTA Bilaterally Gastrointestinal: Yes: Normal Bowel Sounds, Soft Edema: Yes Labs: CBC, BMP 03/15/20 05:46 03/15/20 05:46 INR, PTT INR 0.93 (0.83-1.09) 03/14/20 16:30 Assessment/Plan S/P HYPOTENSION UTI R/O SEPSIS SECONDARY TO UTI ESRD PEMPHIGUS ON PREDNISONE AWAIT C/S REDOSE VANCOMYCIN/ GENTAMICIN
[2020-03-17] MEDS ORDERED: PT OWN MED DRAWER 7, Y5N ONE ×3 (08:48→10:36)
[2020-03-17] MEDS: SEVELAMER CARBONATE 0.8 GM POWDER PACKET PO SCH ×3 (08:48→16:40)
[2020-03-17] MEDS: AMINO ACIDS/PROTEIN HYDROLYS 30 ML LIQUID.PKT PO SCH ×2 (08:48→16:40)
[2020-03-17] MEDS: HEPARIN NA (PORCINE) 5,000 UNITS/ML 1ML VIAL SQ SCH ×3 (09:06→22:17)
[2020-03-17] MEDS: POLYETHYLENE GLYCOL 3350 119 GM BTL PO SCH (09:06)
[2020-03-17] MEDS: GABAPENTIN 300 MG CAPSULE PO SCH (09:06)
[2020-03-17] MEDS: FAMOTIDINE 10 MG TABLET PO SCH (09:07)
[2020-03-17] MEDS: SILVER SULFADIAZINE 1% TOP CREAM 50 GM JAR TP SCH (09:07)
[2020-03-17] MEDS: LIDOCAINE 2.5%/PRILOCAINE 2.5% 30 GRAM TUBE TP SCH (09:07)
[2020-03-17] MEDS: HYDROCORTISONE 2.5% TOPICAL CREAM 30 GM TUBE PR SCH (09:07)
[2020-03-17] MEDS: PHENYLEPHRINE HCL/COCOA BUTTER SUPPOSITORY RC PRN (09:08)
--- NOTE | 2020-03-17 09:24 | PN ---
Progress Note (short form) - Note Progress Note: RENAL pt is awake and alert comfortable having some melena tolerated hd well Last Vital Signs Temp Pulse Resp BP Pulse Ox 98.0 F 98 H 18 114/49 L 99 03/17/20 09:00 03/17/20 09:00 03/17/20 09:00 03/17/20 09:00 03/17/20 09:00 lungs clear cvs s1s2 rr abd soft ext no edema neuro a+ox3 CBC, BMP 03/15/20 05:46 03/15/20 05:46 Current Medications Generic Name Dose Route Start Last Admin Trade Name Freq PRN Reason Stop Dose Admin Acetaminophen 650 mg 03/15/20 03:04 Tylenol - PO Q6H PRN PAIN LEVEL 6-10 Amino Acids 30 ml 03/16/20 17:30 03/17/20 08:48 Prosource No Carb Liquid Pkt PO 30 ml BID@0800,1730 [facility] Administration [place] Butter/Phenylephrine 1 each 03/14/20 21:11 03/17/20 09:08 Preparation H Suppository RC 1 each Q6H PRN Administration HEMORRHOIDS Diphenhydramine HCl 25 mg 03/15/20 04:44 Benadryl - PO DAILY PRN FOR ITCHING Famotidine 10 mg 03/15/20 10:00 03/17/20 09:07 Acid Crime Scene Evidence Technician PO 10 mg DAILY [facility] Administration Gabapentin 300 mg 03/16/20 10:00 03/17/20 09:06 Neurontin - PO 300 mg DAILY [facility] Administration Heparin Sodium (Porcine) 5,000 unit 03/15/20 10:00 03/17/20 09:06 Heparin - SQ 5,000 unit BID [facility] Administration Hydrocortisone 1 applic 03/15/20 10:00 03/17/20 09:07 Anusol 2.5% Hc Cream - [place] 1 applic DAILY [facility] Administration Lidocaine/Prilocaine 1 applic 03/15/20 16:00 03/17/20 09:07 Lidocaine-Prilocaine Cream TP 1 applic DAILY [facility] Administration Melatonin 5 mg 03/15/20 22:00 03/16/20 21:59 Melatonin PO 5 mg HS [facility] Administration Polyethylene Glycol 17 gm 03/15/20 17:45 03/17/20 09:06 Miralax (For Daily Use) - PO 17 gm DAILY [facility] Administration Senna 2 tab 03/15/20 17:33 Senna - PO HS PRN CONSTIPATION Sevelamer Carbonate 0.8 gm 03/15/20 08:00 03/17/20 08:48 Renvela Powder Packet - PO 0.8 gm TIDCM [facility] Administration Silver Sulfadiazine 1 applic 03/15/20 10:00 03/17/20 09:07 Silvadene - TP 1 applic BID [facility] Administration IMPRESSION esrd uti pemphigus vulgaris melena PLAN continue antibiotics dialysis tomorrow will give DAYTON phos guaiac stool check iron studies, cbc MV
[2020-03-17 10:29] LABS: IRON SERUM 70 ug/dL (50-175); TOTAL IRON BINDING CAPACITY 124 ug/dL (250-450)
[2020-03-17 11:35] LABS: BASO % 0.8 % (0-2.0); EOS % 3.2 % (0-4.5); HEMATOCRIT 24.4 % (32.4-45.2); HEMOGLOBIN 7.9 GM/dL (10.7-15.3); LYMPH % 14.4 % (8-40); MCH 35.5 pg (25.7-33.7); MCHC 32.2 g/dl (32.0-36.0); MEAN CELL VOLUME 110.3 fl (80-96); MEAN PLT VOLUME 7.5 fl (7.5-11.1); MONO % 15.7 % (3.8-10.2); NEUT % 65.9 % (42.8-82.8); PLATELET COUNT 257 K/MM3 (134-434); RBC 2.22 M/mm3 (3.60-5.2); RDW 18.7 % (11.6-15.6); WHITE BLOOD COUNT 11.9 K/mm3 (4.0-10.0)
[2020-03-17 12:16] LABS: ANISOCYTOSIS 2+; MACROCYTOSIS 2+; OVALOCYTE 1+
[2020-03-17 12:17] LABS: PLATELET ESTIMATE NORMAL
--- NOTE | 2020-03-17 12:47 | PN ---
Progress Note (short form) - Note Progress Note: Dark BM's noted with decrease in H/H Suspect anemia is multifactorial Discussed upper endoscopy with Ms. Shabazz to exclude potential upper GI bleeding source. Discussed potential risks of the procedure like but not limited to bleeding, perforation requiring surgery to repair, infection, sedation medication effects all of which could be potentially life threatening. She has agreed to the procedure. Hematology evaluation for macrocytic anemia Clear liquid diet Protonix 40mg PO BID for now, which can be tailored further after EGD Will need outpatient follow-up with her tafe teacher Problem List - Problems (1) Anorectal pain Code(s): K62.89 - OTHER SPECIFIED DISEASES OF ANUS AND RECTUM
--- NOTE | 2020-03-17 13:12 | PN ---
Progress Note (short form) - Note Progress Note: events noted has dark stools had EGD and colonoscopy as an outpt last year per pt no abd pain c/o rectal pain Vital Signs - 24 hr 03/16/20 03/16/20 03/16/20 13:25 13:55 14:25 Temperature Pulse Rate 96 H 96 H 96 H Respiratory 18 18 18 Rate Blood Pressure 88/37 L 124/50 L 109/42 L O2 Sat by Pulse Oximetry (%) 03/16/20 03/16/20 03/16/20 14:55 15:25 15:40 Temperature Pulse Rate 98 H 94 H 100 H Respiratory 18 18 18 Rate Blood Pressure 114/48 L 116/44 L 113/47 L O2 Sat by Pulse Oximetry (%) 03/16/20 03/16/20 03/16/20 16:00 18:00 21:00 Temperature 98.0 F Pulse Rate 99 H 98 H Respiratory 18 20 Rate Blood Pressure 118/46 L 90/49 L O2 Sat by Pulse 96 95 Oximetry (%) 03/16/20 03/17/20 03/17/20 22:00 01:18 05:00 Temperature 98.2 F 98.3 F 98.1 F Pulse Rate 100 H 99 H 95 H Respiratory 20 20 18 Rate Blood Pressure 102/50 L 106/42 L 109/48 L O2 Sat by Pulse 95 92 L Oximetry (%) 03/17/20 09:00 Temperature 98.0 F Pulse Rate 98 H Respiratory 18 Rate Blood Pressure 114/49 L O2 Sat by Pulse 99 Oximetry (%) Current Medications Generic Name Dose Route Start Last Admin Trade Name Freq PRN Reason Stop Dose Admin Acetaminophen 650 mg 03/15/20 03:04 Tylenol - PO Q6H PRN PAIN LEVEL 6-10 Amino Acids 30 ml 03/16/20 17:30 03/17/20 08:48 Prosource No Carb Liquid Pkt PO 30 ml BID@0800,1730 [facility] Administration [place] Butter/Phenylephrine 1 each 03/14/20 21:11 03/17/20 09:08 Preparation H Suppository RC 1 each Q6H PRN Administration HEMORRHOIDS Diphenhydramine HCl 25 mg 03/15/20 04:44 Benadryl - PO DAILY PRN FOR ITCHING Famotidine 10 mg 03/15/20 10:00 03/17/20 09:07 Acid Crusher Screen Repairer PO 10 mg DAILY KALIA Administration Gabapentin 300 mg 03/16/20 10:00 03/17/20 09:06 Neurontin - PO 300 mg DAILY KALIA Administration Heparin Sodium (Porcine) 5,000 unit 03/15/20 10:00 03/17/20 10:28 Heparin - SQ Not Given BID K[facility]IA Hydrocortisone 1 applic 03/15/20 10:00 03/17/20 09:07 Anusol 2.5% Hc Cream - [place] 1 applic DAILY K[facility]IA Administration Lidocaine/Prilocaine 1 applic 03/15/20 16:00 03/17/20 09:07 Lidocaine-Prilocaine Cream TP 1 applic DAILY K[facility]IA Administration Melatonin 5 mg 03/15/20 22:00 03/16/20 21:59 Melatonin PO 5 mg HS KALIA Administration Pantoprazole Sodium 40 mg 03/17/20 22:00 Protonix - PO BID K[facility] Polyethylene Glycol 17 gm 03/15/20 17:45 03/17/20 09:06 Miralax (For Daily Use) - PO 17 gm DAILY [facility] Administration Senna 2 tab 03/15/20 17:33 Senna - PO HS PRN CONSTIPATION Sevelamer Carbonate 0.8 gm 03/15/20 08:00 03/17/20 11:17 Renvela Powder Packet - PO 0.8 gm TIDCM KALIA Administration Silver Sulfadiazine 1 applic 03/15/20 10:00 03/17/20 09:07 Silvadene - TP 1 applic BID KALIA Administration Laboratory Results - last 24 hr 03/16/20 03/17/20 03/17/20 05:40 09:40 09:45 WBC RBC Hgb Hct MCV MCH MCHC RDW Plt Count MPV Absolute Neuts (auto) Total Counted Neutrophils % Neutrophils % (Manual) Band Neutrophils % Lymphocytes % Lymphocytes % (Manual) Monocytes % Monocytes % (Manual) Eosinophils % Eosinophils % (Manual) Basophils % Basophils % (Manual) Myelocytes % (Man) Nucleated RBC % Metamyelocytes Hypochromia Platelet Estimate Platelet Comment Polychromasia Poikilocytosis Basophilic Stippling Anisocytosis Macrocytosis Ovalocytes Stomatocytes Iron 70 TIBC 124 L Iron Saturation 56 H Unsaturated IBC 54 L Vitamin B12 1122 H Stool Occult Blood Positive Hep Bs Antigen Negative 03/17/20 09:45 WBC 11.9 H RBC 2.22 L Hgb 7.9 L Hct 24.4 L MCV 110.3 H MCH 35.5 H MCHC 32.2 RDW 18.7 H Plt Count 257 MPV 7.5 Absolute Neuts (auto) 7.9 Total Counted 100 Neutrophils % 65.9 Neutrophils % (Manual) 62.0 Band Neutrophils % 1.0 Lymphocytes % 14.4 D Lymphocytes % (Manual) 15.0 Monocytes % 15.7 H Monocytes % (Manual) 18 H Eosinophils % 3.2 D Eosinophils % (Manual) 2.0 Basophils % 0.8 Basophils % (Manual) 0.0 Myelocytes % (Man) 1 D Nucleated RBC % 1 H Metamyelocytes 1 D Hypochromia 1+ Platelet Estimate Normal Platelet Comment No clumping noted Polychromasia 1+ Poikilocytosis 1+ Basophilic Stippling 1+ Anisocytosis 2+ Macrocytosis 2+ Ovalocytes 1+ Stomatocytes 1+ Iron TIBC Iron Saturation Unsaturated IBC Vitamin B12 Stool Occult Blood Hep Bs Antigen Microbiology 03/14/20 15:30 Urine Culture - Preliminary Urine - Urine - Catheterized Staphylococcus Epidermidis 03/14/20 16:30 Blood Culture - Preliminary Blood - Peripheral Venous NO GROWTH OBTAINED AFTER 48 HOURS, INCUBATION TO CONTINUE FOR 3 DAYS. 03/14/20 16:30 Blood Culture - Preliminary Blood - Peripheral Venous NO GROWTH OBTAINED AFTER 48 HOURS, INCUBATION TO CONTINUE FOR 3 DAYS. S1 S2 RRR Lungs decreased Abd- soft, NT diffuse skin lesions Ext - no edema PLAN Redosed Vanco and GM spoke to ID and Renal Cultures done COVID 19 negative continue with meds spoke iw GI-- for EGD tomorrow on PPI transfuse as needed Problem List - Problems (1) Diabetes mellitus Code(s): E11.9 - TYPE 2 DIABETES MELLITUS WITHOUT COMPLICATIONS (2) ESRD (end stage renal disease) on dialysis Code(s): N18.6 - END STAGE RENAL DISEASE; Z99.2 - DEPENDENCE ON RENAL DIALYSIS (3) Encounter for screening laboratory testing for COVID-19 virus Code(s): Z11.59 - ENCOUNTER FOR SCREENING FOR OTHER VIRAL DISEASES (4) HLD (hyperlipidemia) Code(s): E78.5 - HYPERLIPIDEMIA, UNSPECIFIED (5) Hemorrhoid Code(s): K64.9 - UNSPECIFIED HEMORRHOIDS (6) Hypotension Code(s): I95.9 - HYPOTENSION, UNSPECIFIED Qualifiers: Hypotension type: unspecified hypotension type Qualified Code(s): I95.9 - Hypotension, unspecified (7) Pemphigus vulgaris Code(s): L10.0 - PEMPHIGUS VULGARIS (8) Sepsis Code(s): A41.9 - SEPSIS, UNSPECIFIED ORGANISM (9) UTI (urinary tract infection) Code(s): N39.0 - URINARY TRACT INFECTION, SITE NOT SPECIFIED Qualifiers: Urinary tract infection type: acute cystitis Hematuria presence: with hematuria Qualified Code(s): N30.01 - Acute cystitis with hematuria
[2020-03-17 13:42] LABS: BASO % 0.6 % (0-2.0); EOS % 2.4 % (0-4.5); HEMATOCRIT 24.8 % (32.4-45.2); LYMPH % 13.6 % (8-40); MCH 35.4 pg (25.7-33.7); MCHC 32.2 g/dl (32.0-36.0); MEAN CELL VOLUME 109.9 fl (80-96); MEAN PLT VOLUME 7.2 fl (7.5-11.1); NEUT % 69.4 % (42.8-82.8); PLATELET COUNT 270 K/MM3 (134-434); RBC 2.25 M/mm3 (3.60-5.2); RDW 18.4 % (11.6-15.6); WHITE BLOOD COUNT 12.6 K/mm3 (4.0-10.0)
[2020-03-17 14:30] LABS: ANISOCYTOSIS 2+; MACROCYTOSIS 2+; PLATELET ESTIMATE NORMAL
--- NOTE | 2020-03-17 14:50 | PN ---
Progress Note, Physician Chief Complaint: REPORTS LESS DYSURIA AWAKE, ALERT NO ACUTE DISTRESS AFEBRILE BC (-) URINE C/S SCN - Current Medication List Current Medications: Active Medications Acetaminophen (Tylenol -) 650 mg PO Q6H PRN PRN Reason: PAIN LEVEL 6-10 Amino Acids (Prosource No Carb Liquid Pkt) 30 ml PO BID@0800,1730 [facility] Last Admin: 03/17/20 08:48 Dose: 30 ml Documented by: [place] Butter/Phenylephrine (Preparation H Suppository) 1 each RC Q6H PRN PRN Reason: HEMORRHOIDS Last Admin: 03/17/20 09:08 Dose: 1 each Documented by: Diphenhydramine HCl (Benadryl -) 25 mg PO DAILY PRN PRN Reason: FOR ITCHING Famotidine (Acid Honey Extractor) 10 mg PO DAILY [facility] Last Admin: 03/17/20 09:07 Dose: 10 mg Documented by: Gabapentin (Neurontin -) 300 mg PO DAILY [facility] Last Admin: 03/17/20 09:06 Dose: 300 mg Documented by: Heparin Sodium (Porcine) (Heparin -) 5,000 unit SQ BID [facility] Last Admin: 03/17/20 10:28 Dose: Not Given Documented by: Hydrocortisone (Anusol 2.5% Hc Cream -) 1 applic HI DAILY [facility] Last Admin: 03/17/20 09:07 Dose: 1 applic Documented by: Lidocaine/Prilocaine (Lidocaine-Prilocaine Cream) 1 applic TP DAILY [facility] Last Admin: 03/17/20 09:07 Dose: 1 applic Documented by: Melatonin (Melatonin) 5 mg PO HS [facility] Last Admin: 03/16/20 21:59 Dose: 5 mg Documented by: Pantoprazole Sodium (Protonix -) 40 mg PO BID [facility] Polyethylene Glycol (Miralax (For Daily Use) -) 17 gm PO DAILY [facility] Last Admin: 03/17/20 09:06 Dose: 17 gm Documented by: Senna (Senna -) 2 tab PO HS PRN PRN Reason: CONSTIPATION Sevelamer Carbonate (Renvela Powder Packet -) 0.8 gm PO TIDCM [facility] Last Admin: 03/17/20 11:17 Dose: 0.8 gm Documented by: Silver Sulfadiazine (Silvadene -) 1 applic TP BID [facility] Last Admin: 03/17/20 09:07 Dose: 1 applic Documented by: - Objective Vital Signs: Vital Signs Temperature 98.0 F 03/17/20 09:00 Pulse Rate 98 H 03/17/20 09:00 Respiratory Rate 18 03/17/20 09:00 Blood Pressure 114/49 L 03/17/20 09:00 O2 Sat by Pulse Oximetry (%) 99 03/17/20 09:00 Constitutional: Yes: No Distress Eyes: Yes: Conjunctiva Clear Cardiovascular: Yes: Regular Rate and Rhythm, S1, S2 Edema: Yes Integumentary: Yes: Venous Stasis Changes Labs: CBC, BMP 03/17/20 13:25 03/15/20 05:46 INR, PTT INR 0.93 (0.83-1.09) 03/14/20 16:30 Assessment/Plan S/P HYPOTENSION UTI R/O SEPSIS SECONDARY TO UTI ESRD PEMPHIGUS ON PREDNISONE REDOSE VANCOMYCIN/ GENTAMICIN AT HD
[2020-03-17] MEDS: MELATONIN 5 MG TABLETS PO SCH (21:29)
[2020-03-17] MEDS: PANTOPRAZOLE 40 MG TABLET PO SCH (21:29)
[2020-03-17] MEDS ORDERED: clonazePAM 0.5 MG TABLET PO ONE (21:42)
[2020-03-17] MEDS ORDERED: hydrOXYzine PAMOATE 25 MG CAPSULE (FP) PO ONE (21:43)
[2020-03-18] MEDS: SILVER SULFADIAZINE 1% TOP CREAM 50 GM JAR TP SCH ×3 (00:01→22:11)
[2020-03-18 07:01] LABS: BASO % 0.8 % (0-2.0); EOS % 3.9 % (0-4.5); HEMATOCRIT 24.3 % (32.4-45.2); HEMOGLOBIN 7.8 GM/dL (10.7-15.3); LYMPH % 17.6 % (8-40); MCH 35.5 pg (25.7-33.7); MCHC 32.2 g/dl (32.0-36.0); MEAN CELL VOLUME 110.4 fl (80-96); MEAN PLT VOLUME 7.3 fl (7.5-11.1); MONO % 15.5 % (3.8-10.2); NEUT % 62.2 % (42.8-82.8); PLATELET COUNT 259 K/MM3 (134-434); WHITE BLOOD COUNT 11.9 K/mm3 (4.0-10.0)
[2020-03-18 07:28] LABS: CALCIUM 8.9 mg/dL (8.5-10.1); CREATININE 5.7 mg/dL (0.55-1.3); PHOSPHOROUS 3.1 mg/dL (2.5-4.9); POTASSIUM 3.4 mmol/L (3.5-5.1)
[2020-03-18] MEDS ORDERED: PT OWN MED DRAWER 7, Y5N ONE ×3 (08:11→18:12)
[2020-03-18] MEDS: AMINO ACIDS/PROTEIN HYDROLYS 30 ML LIQUID.PKT PO SCH ×4 (08:14→18:11)
[2020-03-18] MEDS: SEVELAMER CARBONATE 0.8 GM POWDER PACKET PO SCH ×3 (08:15→18:15)
[2020-03-18 10:21] LABS: ANISOCYTOSIS 1+; MACROCYTOSIS 1+; PLATELET ESTIMATE NORMAL
--- NOTE | 2020-03-18 13:08 | PN ---
Progress Note (short form) - Note Progress Note: RENAL pt is awake and alert comfortable comfortable just had egd Last Vital Signs Temp Pulse Resp BP Pulse Ox 98.3 F 79 18 106/42 L 92 L 03/18/20 11:46 03/18/20 11:46 03/18/20 11:46 03/18/20 11:46 03/18/20 11:46 lungs clear cvs s1s2 rr abd soft ext no edema neuro a+ox3 skin lesions noted CBC, BMP 03/18/20 06:30 03/18/20 06:30 Current Medications Generic Name Dose Route Start Last Admin Trade Name Freq PRN Reason Stop Dose Admin Acetaminophen 650 mg 03/15/20 03:04 03/17/20 21:29 Tylenol - PO 650 mg Q6H PRN Administration PAIN LEVEL 6-10 Amino Acids 30 ml 03/16/20 17:30 03/18/20 08:19 Prosource No Carb Liquid Pkt PO Not Given BID@0800,1730 KAL[facility] [place] Butter/Phenylephrine 1 each 03/14/20 21:11 03/17/20 09:08 Preparation H Suppository RC 1 each Q6H PRN Administration HEMORRHOIDS Diphenhydramine HCl 25 mg 03/15/20 04:44 Benadryl - PO DAILY PRN FOR ITCHING Famotidine 10 mg 03/15/20 10:00 03/17/20 09:07 Acid Reference Library Assistant PO 10 mg DAILY K[facility] Administration Gabapentin 300 mg 03/16/20 10:00 03/17/20 09:06 Neurontin - PO 300 mg DAILY [facility] Administration Heparin Sodium (Porcine) 5,000 unit 03/15/20 10:00 03/17/20 22:17 Heparin - SQ Not Given BID K[facility] Hydrocortisone 1 applic 03/15/20 10:00 03/17/20 09:07 Anusol 2.5% Hc Cream - [place] 1 applic DAILY [facility] Administration Lidocaine/Prilocaine 1 applic 03/15/20 16:00 03/17/20 09:07 Lidocaine-Prilocaine Cream TP 1 applic DAILY K[facility]IA Administration Melatonin 5 mg 03/15/20 22:00 03/17/20 21:29 Melatonin PO 5 mg HS KALIA Administration Pantoprazole Sodium 40 mg 03/17/20 22:00 03/17/20 21:29 Protonix - PO 40 mg BID KALIA Administration Polyethylene Glycol 17 gm 03/15/20 17:45 03/17/20 09:06 Miralax (For Daily Use) - PO 17 gm DAILY [facility] Administration Senna 2 tab 03/15/20 17:33 Senna - PO HS PRN CONSTIPATION Sevelamer Carbonate 0.8 gm 03/15/20 08:00 03/18/20 08:15 Renvela Powder Packet - PO 0.8 gm TIDCM KALIA Administration Silver Sulfadiazine 1 applic 03/15/20 10:00 03/18/20 00:01 Silvadene - TP 1 applic BID KALIA Administration IMPRESSION esrd uti pemphigus vulgaris melena s/p egd today which did not reveal any significant abnormalities PLAN continue antibiotics- vanco and gent with hd per ID will dialyze today will give [place] phos MV
[2020-03-18] MEDS ORDERED: SODIUM CHLORIDE 250 ML IV PRN (13:23)
[2020-03-18] MEDS ORDERED: GENTAMICIN 80 MG PREMIXED IVPB 80 MG/100 ML BAG IVPB ONE (14:00)
[2020-03-18] MEDS ORDERED: VANCOMYCIN 1,000 MG in DEXTROSE 5%-WATER - 250 ML IVPB ONE (14:00)
[2020-03-18] MEDS ORDERED: EPOETIN ALFA-EPBX 4,000 UNIT/ML VIAL SQ ONE (14:00)
--- NOTE | 2020-03-18 14:48 | PN ---
Progress Note, Physician Chief Complaint: REPORTS LESS DYSURIA AWAKE, ALERT NO ACUTE DISTRESS AFEBRILE BC (-) URINE C/S SCN - Current Medication List Current Medications: Active Medications Acetaminophen (Tylenol -) 650 mg PO Q6H PRN PRN Reason: PAIN LEVEL 6-10 Last Admin: 03/17/20 21:29 Dose: 650 mg Documented by: Amino Acids (Prosource No Carb Liquid Pkt) 30 ml PO BID@0800,1730 [facility] Last Admin: 03/18/20 08:19 Dose: Not Given Documented by: [place] Butter/Phenylephrine (Preparation H Suppository) 1 each RC Q6H PRN PRN Reason: HEMORRHOIDS Last Admin: 03/17/20 09:08 Dose: 1 each Documented by: Diphenhydramine HCl (Benadryl -) 25 mg PO DAILY PRN PRN Reason: FOR ITCHING Famotidine (Acid Annual Giving Officer) 10 mg PO DAILY [facility] Last Admin: 03/17/20 09:07 Dose: 10 mg Documented by: Gabapentin (Neurontin -) 300 mg PO DAILY [facility] Last Admin: 03/17/20 09:06 Dose: 300 mg Documented by: Heparin Sodium (Porcine) (Heparin -) 5,000 unit SQ BID [facility] Last Admin: 03/17/20 22:17 Dose: Not Given Documented by: Hydrocortisone (Anusol 2.5% Hc Cream -) 1 applic DC DAILY [facility] Last Admin: 03/17/20 09:07 Dose: 1 applic Documented by: Sodium Chloride (Normal Saline -) 250 mls @ 3,000 mls/hr IV PRN PRN PRN Reason: Hypotension during Dialysis Stop: 03/19/20 13:22 Vancomycin HCl 1,000 mg/ (Dextrose) 250 mls @ 200 mls/hr IVPB ONCE ONE Stop: 03/18/20 15:14 Gentamicin Sulfate/Sodium Chloride (Garamycin 80 Mg Premixed Ivpb -) 80 mg in 100 mls @ 100 mls/hr IVPB ONCE ONE Stop: 03/18/20 14:59 Lidocaine/Prilocaine (Lidocaine-Prilocaine Cream) 1 applic TP DAILY [facility] Last Admin: 03/17/20 09:07 Dose: 1 applic Documented by: Melatonin (Melatonin) 5 mg PO HS [facility] Last Admin: 03/17/20 21:29 Dose: 5 mg Documented by: Pantoprazole Sodium (Protonix -) 40 mg PO BID [facility] Last Admin: 03/17/20 21:29 Dose: 40 mg Documented by: Polyethylene Glycol (Miralax (For Daily Use) -) 17 gm PO DAILY [facility] Last Admin: 03/17/20 09:06 Dose: 17 gm Documented by: Senna (Senna -) 2 tab PO HS PRN PRN Reason: CONSTIPATION Sevelamer Carbonate (Renvela Powder Packet -) 0.8 gm PO TIDCM [facility] Last Admin: 03/18/20 08:15 Dose: 0.8 gm Documented by: Silver Sulfadiazine (Silvadene -) 1 applic TP BID [facility] Last Admin: 03/18/20 00:01 Dose: 1 applic Documented by: - Objective Vital Signs: Vital Signs Temperature 98.3 F 03/18/20 14:06 Pulse Rate 99 H 03/18/20 14:06 Respiratory Rate 18 03/18/20 11:46 Blood Pressure 104/46 L 03/18/20 14:06 O2 Sat by Pulse Oximetry (%) 94 L 03/18/20 14:06 Constitutional: Yes: No Distress, Obese Eyes: Yes: Conjunctiva Clear Cardiovascular: Yes: Regular Rate and Rhythm, S1, S2 Respiratory: Yes: CTA Bilaterally Gastrointestinal: Yes: Normal Bowel Sounds, Soft. No: Tenderness Edema: Yes Integumentary: Yes: Venous Stasis Changes Labs: CBC, BMP 03/18/20 06:30 03/18/20 06:30 INR, PTT INR 0.93 (0.83-1.09) 03/14/20 16:30 Assessment/Plan S/P HYPOTENSION UTI R/O SEPSIS SECONDARY TO UTI ESRD PEMPHIGUS ON PREDNISONE REDOSE VANCOMYCIN/ GENTAMICIN AT HD
--- NOTE | 2020-03-18 16:59 | PN ---
Progress Note (short form) - Note Progress Note: events noted EGD noted pt has no complaints Vital Signs - 24 hr 03/17/20 03/17/20 03/17/20 18:42 20:16 22:00 Temperature 98.8 F 99.3 F Pulse Rate 98 H 92 H Respiratory 18 18 18 Rate Blood Pressure 90/42 L 92/37 L O2 Sat by Pulse 93 L 93 L Oximetry (%) 03/18/20 03/18/20 03/18/20 02:00 06:00 08:01 Temperature 98.2 F 97.9 F Pulse Rate 87 73 Respiratory 20 20 20 Rate Blood Pressure 104/48 L 94/48 L O2 Sat by Pulse 96 95 97 Oximetry (%) 03/18/20 03/18/20 03/18/20 08:03 10:41 10:56 Temperature 98 F 98.3 F Pulse Rate 84 80 76 Respiratory 20 16 12 Rate Blood Pressure 112/62 92/49 L 93/48 L O2 Sat by Pulse 97 99 99 Oximetry (%) 03/18/20 03/18/20 03/18/20 11:11 11:26 11:46 Temperature 98.3 F Pulse Rate 79 79 79 Respiratory 14 16 18 Rate Blood Pressure 103/46 L 104/45 L 106/42 L O2 Sat by Pulse 100 90 L 92 L Oximetry (%) 03/18/20 03/18/20 03/18/20 14:06 14:40 14:45 Temperature 98.3 F 98.5 F Pulse Rate 99 H 93 H 86 Respiratory 18 18 Rate Blood Pressure 104/46 L 96/41 L 101/49 L O2 Sat by Pulse 94 L Oximetry (%) 03/18/20 03/18/20 03/18/20 15:15 15:45 16:15 Temperature Pulse Rate 97 H 59 L 84 Respiratory 18 18 18 Rate Blood Pressure 90/47 L 92/44 L 112/61 O2 Sat by Pulse Oximetry (%) Current Medications Generic Name Dose Route Start Last Admin Trade Name Freq PRN Reason Stop Dose Admin Acetaminophen 650 mg 03/15/20 03:04 03/17/20 21:29 Tylenol - PO 650 mg Q6H PRN Administration PAIN LEVEL 6-10 Amino Acids 30 ml 03/16/20 17:30 03/18/20 08:19 Prosource No Carb Liquid Pkt PO Not Given BID@0800,1730 [facility] [place] Butter/Phenylephrine 1 each 03/14/20 21:11 03/17/20 09:08 Preparation H Suppository RC 1 each Q6H PRN Administration HEMORRHOIDS Diphenhydramine HCl 25 mg 03/15/20 04:44 Benadryl - PO DAILY PRN FOR ITCHING Famotidine 10 mg 03/15/20 10:00 03/17/20 09:07 Acid Store Stocker PO 10 mg DAILY [facility] Administration Gabapentin 300 mg 03/16/20 10:00 03/17/20 09:06 Neurontin - PO 300 mg DAILY [facility] Administration Heparin Sodium (Porcine) 5,000 unit 03/15/20 10:00 03/17/20 22:17 Heparin - SQ Not Given BID [facility] Hydrocortisone 1 applic 03/15/20 10:00 03/17/20 09:07 Anusol 2.5% Hc Cream - [place] 1 applic DAILY [facility] Administration Sodium Chloride 250 mls @ 3,000 mls/hr 03/18/20 13:23 Normal Saline - IV 03/19/20 13:22 PRN PRN Hypotension during Dialysis Lidocaine/Prilocaine 1 applic 03/15/20 16:00 03/17/20 09:07 Lidocaine-Prilocaine Cream TP 1 applic DAILY [facility] Administration Melatonin 5 mg 03/15/20 22:00 03/17/20 21:29 Melatonin PO 5 mg HS [facility] Administration Pantoprazole Sodium 40 mg 03/17/20 22:00 03/17/20 21:29 Protonix - PO 40 mg BID [facility] Administration Polyethylene Glycol 17 gm 03/15/20 17:45 03/17/20 09:06 Miralax (For Daily Use) - PO 17 gm DAILY [facility] Administration Senna 2 tab 03/15/20 17:33 Senna - PO HS PRN CONSTIPATION Sevelamer Carbonate 0.8 gm 03/15/20 08:00 03/18/20 08:15 Renvela Powder Packet - PO 0.8 gm TIDCM [facility] Administration Silver Sulfadiazine 1 applic 03/15/20 10:00 03/18/20 00:01 Silvadene - TP 1 applic BID [facility] Administration Laboratory Results - last 24 hr 03/16/20 03/18/20 03/18/20 12:35 06:30 06:30 WBC 11.9 H RBC 2.20 L Hgb 7.8 L Hct 24.3 L MCV 110.4 H MCH 35.5 H MCHC 32.2 RDW 19.0 H Plt Count 259 MPV 7.3 L Absolute Neuts (auto) 7.4 Neutrophils % 62.2 Neutrophils % (Manual) 53.5 Band Neutrophils % 5.1 Lymphocytes % 17.6 D Lymphocytes % (Manual) 19.2 D Monocytes % 15.5 H Monocytes % (Manual) 9 D Eosinophils % 3.9 Eosinophils % (Manual) 4.0 D Basophils % 0.8 Basophils % (Manual) 1.0 Myelocytes % (Man) 0 Promyelocytes % (Man) 0 Blast Cells % (Manual) 0 Nucleated RBC % 1 H Metamyelocytes 1 D Hypochromia 0 Platelet Estimate Normal Polychromasia 1+ Poikilocytosis 1+ Anisocytosis 1+ Microcytosis 1+ Macrocytosis 1+ Spherocytes 1+ Sodium 138 Potassium 3.4 L Chloride 99 Carbon Dioxide 31 Anion Gap 8 BUN 39.0 H Creatinine 5.7 H Est GFR (CKD-EPI)AfAm 8.89 Est GFR (CKD-EPI)NonAf 7.67 Random Glucose 90 Calcium 8.9 Phosphorus 3.1 Ferritin 1839.0 H Hep C Ab Diagnostic 9.5 H HCV RNA PCR w/Genot Rflx Hcv not detected Liver Fibrosis Interp Microbiology 03/14/20 16:30 Blood Culture - Preliminary Blood - Peripheral Venous NO GROWTH OBTAINED AFTER 72 HOURS, INCUBATION TO CONTINUE FOR 2 DAYS. 03/14/20 16:30 Blood Culture - Preliminary Blood - Peripheral Venous NO GROWTH OBTAINED AFTER 72 HOURS, INCUBATION TO CONTINUE FOR 2 DAYS. 03/14/20 15:30 Urine Culture - Final Urine - Urine - Catheterized Staphylococcus Epidermidis S1 S2 RRR Lungs decreased Abd- soft, NT diffuse skin lesions Ext - no edema PLAN Redosed Vanco and GM spoke to ID and Renal Cultures done COVID 19 negative continue with meds EGD findings noted on PPI transfuse as needed PT eval dc planning to home Problem List - Problems (1) Diabetes mellitus Code(s): E11.9 - TYPE 2 DIABETES MELLITUS WITHOUT COMPLICATIONS (2) ESRD (end stage renal disease) on dialysis Code(s): N18.6 - END STAGE RENAL DISEASE; Z99.2 - DEPENDENCE ON RENAL DIALYSIS (3) Encounter for screening laboratory testing for COVID-19 virus Code(s): Z11.59 - ENCOUNTER FOR SCREENING FOR OTHER VIRAL DISEASES (4) HLD (hyperlipidemia) Code(s): E78.5 - HYPERLIPIDEMIA, UNSPECIFIED (5) Hemorrhoid Code(s): K64.9 - UNSPECIFIED HEMORRHOIDS (6) Hypotension Code(s): I95.9 - HYPOTENSION, UNSPECIFIED Qualifiers: Hypotension type: unspecified hypotension type Qualified Code(s): I95.9 - Hypotension, unspecified (7) Pemphigus vulgaris Code(s): L10.0 - PEMPHIGUS VULGARIS (8) Sepsis Code(s): A41.9 - SEPSIS, UNSPECIFIED ORGANISM (9) UTI (urinary tract infection) Code(s): N39.0 - URINARY TRACT INFECTION, SITE NOT SPECIFIED Qualifiers: Urinary tract infection type: acute cystitis Hematuria presence: with hematuria Qualified Code(s): N30.01 - Acute cystitis with hematuria
[2020-03-18] MEDS: HYDROCORTISONE 2.5% TOPICAL CREAM 30 GM TUBE PR SCH (18:07)
[2020-03-18] MEDS: FAMOTIDINE 10 MG TABLET PO SCH (18:07)
[2020-03-18] MEDS: GABAPENTIN 300 MG CAPSULE PO SCH (18:08)
[2020-03-18] MEDS: LIDOCAINE 2.5%/PRILOCAINE 2.5% 30 GRAM TUBE TP SCH (18:08)
[2020-03-18] MEDS: PANTOPRAZOLE 40 MG TABLET PO SCH ×2 (18:08→22:10)
[2020-03-18] MEDS: POLYETHYLENE GLYCOL 3350 119 GM BTL PO SCH (18:08)
[2020-03-18] MEDS ORDERED: clonazePAM 0.5 MG TABLET PO ONE (20:44)
[2020-03-18] MEDS: HEPARIN NA (PORCINE) 5,000 UNITS/ML 1ML VIAL SQ SCH (22:08)
[2020-03-18] MEDS: MELATONIN 5 MG TABLETS PO SCH (22:10)
[2020-03-19] MEDS ORDERED: PT OWN MED DRAWER 7, Y5N ONE ×3 (08:31→17:01)
[2020-03-19] MEDS: AMINO ACIDS/PROTEIN HYDROLYS 30 ML LIQUID.PKT PO SCH ×2 (08:34→17:44)
[2020-03-19] MEDS: SEVELAMER CARBONATE 0.8 GM POWDER PACKET PO SCH ×3 (08:35→17:09)
[2020-03-19] MEDS: PANTOPRAZOLE 40 MG TABLET PO SCH ×2 (09:18→21:41)
[2020-03-19] MEDS: HEPARIN NA (PORCINE) 5,000 UNITS/ML 1ML VIAL SQ SCH ×3 (09:18→21:46)
[2020-03-19] MEDS: GABAPENTIN 300 MG CAPSULE PO SCH (09:19)
[2020-03-19] MEDS: LIDOCAINE 2.5%/PRILOCAINE 2.5% 30 GRAM TUBE TP SCH (09:19)
[2020-03-19] MEDS: FAMOTIDINE 10 MG TABLET PO SCH (09:19)
[2020-03-19] MEDS: HYDROCORTISONE 2.5% TOPICAL CREAM 30 GM TUBE PR SCH (09:19)
[2020-03-19] MEDS: SILVER SULFADIAZINE 1% TOP CREAM 50 GM JAR TP SCH (09:19)
[2020-03-19] MEDS: POLYETHYLENE GLYCOL 3350 119 GM BTL PO SCH (09:20)
--- NOTE | 2020-03-19 10:10 | PN ---
Progress Note (short form) - Note Progress Note: RENAL pt is awake and alert comfortable no complaints Last Vital Signs Temp Pulse Resp BP Pulse Ox 98.5 F 97 H 20 94/42 L 90 L 03/19/20 06:00 03/19/20 06:00 03/19/20 06:00 03/19/20 06:00 03/19/20 06:00 lungs clear cvs s1s2 rr abd soft ext no edema neuro a+ox3 skin lesions noted CBC, BMP 03/18/20 06:30 03/18/20 06:30 Current Medications Generic Name Dose Route Start Last Admin Trade Name Freq PRN Reason Stop Dose Admin Acetaminophen 650 mg 03/15/20 03:04 03/17/20 21:29 Tylenol - PO 650 mg Q6H PRN Administration PAIN LEVEL 6-10 Amino Acids 30 ml 03/16/20 17:30 03/19/20 08:34 Prosource No Carb Liquid Pkt PO Not Given BID@0800,1730 [facility] [place] Butter/Phenylephrine 1 each 03/14/20 21:11 03/17/20 09:08 Preparation H Suppository RC 1 each Q6H PRN Administration HEMORRHOIDS Diphenhydramine HCl 25 mg 03/15/20 04:44 Benadryl - PO DAILY PRN FOR ITCHING Famotidine 10 mg 03/15/20 10:00 03/19/20 09:19 Acid General Lithographic Worker PO 10 mg DAILY [facility] Administration Gabapentin 300 mg 03/16/20 10:00 03/19/20 09:19 Neurontin - PO 300 mg DAILY [facility] Administration Heparin Sodium (Porcine) 5,000 unit 03/15/20 10:00 03/19/20 09:18 Heparin - SQ 5,000 unit BID [facility] Administration Hydrocortisone 1 applic 03/15/20 10:00 03/19/20 09:19 Anusol 2.5% Hc Cream - [place] 1 applic DAILY [facility] Administration Sodium Chloride 250 mls @ 3,000 mls/hr 03/18/20 13:23 Normal Saline - IV 03/19/20 13:22 PRN PRN Hypotension during Dialysis Lidocaine/Prilocaine 1 applic 03/15/20 16:00 03/19/20 09:19 Lidocaine-Prilocaine Cream TP 1 applic DAILY [facility] Administration Melatonin 5 mg 03/15/20 22:00 03/18/20 22:10 Melatonin PO 5 mg HS [facility] Administration Pantoprazole Sodium 40 mg 03/17/20 22:00 03/19/20 09:18 Protonix - PO 40 mg BID [facility] Administration Polyethylene Glycol 17 gm 03/15/20 17:45 03/19/20 09:20 Miralax (For Daily Use) - PO Not Given DAILY [facility] Senna 2 tab 03/15/20 17:33 Senna - PO HS PRN CONSTIPATION Sevelamer Carbonate 0.8 gm 03/15/20 08:00 03/19/20 08:35 Renvela Powder Packet - PO 0.8 gm TIDCM [facility] Administration Silver Sulfadiazine 1 applic 03/15/20 10:00 03/19/20 09:19 Silvadene - TP 1 applic BID [facility] Administration IMPRESSION esrd uti pemphigus vulgaris melena s/p egd today which did not reveal any significant abnormalities PLAN continue antibiotics- vanco and gent with hd per ID will dialyze tomorrow will give [place] phos is controlled MV
--- NOTE | 2020-03-19 11:37 | PN ---
Progress Note (short form) - Note Progress Note: events noted pt has no complaints Vital Signs - 24 hr 03/18/20 03/18/20 03/18/20 14:06 14:40 14:45 Temperature 98.3 F 98.5 F Pulse Rate 99 H 93 H 86 Respiratory 18 18 Rate Blood Pressure 104/46 L 96/41 L 101/49 L O2 Sat by Pulse 94 L Oximetry (%) 03/18/20 03/18/20 03/18/20 15:15 15:45 16:15 Temperature Pulse Rate 97 H 59 L 84 Respiratory 18 18 18 Rate Blood Pressure 90/47 L 92/44 L 112/61 O2 Sat by Pulse Oximetry (%) 03/18/20 03/18/20 03/18/20 16:45 17:15 17:45 Temperature Pulse Rate 101 H 100 H 82 Respiratory 18 18 18 Rate Blood Pressure 98/40 L 98/51 L 93/51 L O2 Sat by Pulse Oximetry (%) 03/18/20 03/18/20 03/18/20 18:00 18:05 20:56 Temperature 98.1 F 99.3 F Pulse Rate 86 88 94 H Respiratory 18 18 20 Rate Blood Pressure 94/23 L 101/39 L 105/50 L O2 Sat by Pulse 93 L Oximetry (%) 03/18/20 03/19/20 03/19/20 21:00 02:00 06:00 Temperature 99.4 F 98.5 F Pulse Rate 101 H 97 H Respiratory 20 20 Rate Blood Pressure 116/63 94/42 L O2 Sat by Pulse 93 L 91 L 90 L Oximetry (%) 03/19/20 03/19/20 09:00 10:00 Temperature 98.6 F Pulse Rate 101 H Respiratory 20 20 Rate Blood Pressure 100/43 L O2 Sat by Pulse 92 L 92 L Oximetry (%) Current Medications Generic Name Dose Route Start Last Admin Trade Name Freq PRN Reason Stop Dose Admin Acetaminophen 650 mg 03/15/20 03:04 03/17/20 21:29 Tylenol - PO 650 mg Q6H PRN Administration PAIN LEVEL 6-10 Amino Acids 30 ml 03/16/20 17:30 03/19/20 08:34 Prosource No Carb Liquid Pkt PO Not Given BID@0800,1730 [facility] Rosalia Butter/Phenylephrine 1 each 03/14/20 21:11 03/17/20 09:08 Preparation H Suppository RC 1 each Q6H PRN Administration HEMORRHOIDS Diphenhydramine HCl 25 mg 03/15/20 04:44 Benadryl - PO DAILY PRN FOR ITCHING Epoetin Juan-epbx 4,000 unit 03/19/20 10:13 Retacrit SQ 03/19/20 10:14 ONCE ONE Famotidine 10 mg 03/15/20 10:00 03/19/20 09:19 Acid Print Operator PO 10 mg DAILY KALIA Administration Gabapentin 300 mg 03/16/20 10:00 03/19/20 09:19 Neurontin - PO 300 mg DAILY KALIA Administration Heparin Sodium (Porcine) 5,000 unit 03/15/20 10:00 03/19/20 09:18 Heparin - SQ 5,000 unit BID KALIA Administration Hydrocortisone 1 applic 03/15/20 10:00 03/19/20 09:19 Anusol 2.5% Hc Cream - [place] 1 applic DAILY KALIA Administration Sodium Chloride 250 mls @ 3,000 mls/hr 03/18/20 13:23 Normal Saline - IV 03/19/20 13:22 PRN PRN Hypotension during Dialysis Sodium Chloride 250 mls @ 3,000 mls/hr 03/19/20 10:13 Normal Saline - IV 03/20/20 10:13 PRN PRN Hypotension during Dialysis Lidocaine/Prilocaine 1 applic 03/15/20 16:00 03/19/20 09:19 Lidocaine-Prilocaine Cream TP 1 applic DAILY KALIA Administration Melatonin 5 mg 03/15/20 22:00 03/18/20 22:10 Melatonin PO 5 mg HS KALIA Administration Mupirocin 1 applic 03/19/20 12:15 Bactroban 2% Cream - TP BID KALIA Pantoprazole Sodium 40 mg 03/17/20 22:00 03/19/20 09:18 Protonix - PO 40 mg BID KALIA Administration Polyethylene Glycol 17 gm 03/15/20 17:45 03/19/20 09:20 Miralax (For Daily Use) - PO Not Given DAILY KALIA Senna 2 tab 03/15/20 17:33 Senna - PO HS PRN CONSTIPATION Sevelamer Carbonate 0.8 gm 03/15/20 08:00 03/19/20 11:11 Renvela Powder Packet - PO 0.8 gm TIDCM KALIA Administration Laboratory Results - last 24 hr 03/16/20 12:35 Hep C Ab Diagnostic 9.5 H HCV RNA PCR w/Genot Rflx Hcv not detected Liver Fibrosis Interp Microbiology 03/14/20 16:30 Blood Culture - Preliminary Blood - Peripheral Venous NO GROWTH OBTAINED AFTER 96 HOURS, INCUBATION TO CONTINUE FOR 1 DAYS. 03/14/20 16:30 Blood Culture - Preliminary Blood - Peripheral Venous NO GROWTH OBTAINED AFTER 96 HOURS, INCUBATION TO CONTINUE FOR 1 DAYS. S1 S2 RRR Lungs decreased Abd- soft, NT diffuse skin lesions Ext - no edema PLAN Redosed Vanco and GM COVID 19 negative continue with meds EGD findings noted on PPI transfuse as needed PT eval dc planning to home blood cultures negative Problem List - Problems (1) Diabetes mellitus Code(s): E11.9 - TYPE 2 DIABETES MELLITUS WITHOUT COMPLICATIONS (2) ESRD (end stage renal disease) on dialysis Code(s): N18.6 - END STAGE RENAL DISEASE; Z99.2 - DEPENDENCE ON RENAL DIALYSIS (3) Encounter for screening laboratory testing for COVID-19 virus Code(s): Z11.59 - ENCOUNTER FOR SCREENING FOR OTHER VIRAL DISEASES (4) HLD (hyperlipidemia) Code(s): E78.5 - HYPERLIPIDEMIA, UNSPECIFIED (5) Hemorrhoid Code(s): K64.9 - UNSPECIFIED HEMORRHOIDS (6) Hypotension Code(s): I95.9 - HYPOTENSION, UNSPECIFIED Qualifiers: Hypotension type: unspecified hypotension type Qualified Code(s): I95.9 - Hypotension, unspecified (7) Pemphigus vulgaris Code(s): L10.0 - PEMPHIGUS VULGARIS (8) Sepsis Code(s): A41.9 - SEPSIS, UNSPECIFIED ORGANISM (9) UTI (urinary tract infection) Code(s): N39.0 - URINARY TRACT INFECTION, SITE NOT SPECIFIED Qualifiers: Urinary tract infection type: acute cystitis Hematuria presence: with hematuria Qualified Code(s): N30.01 - Acute cystitis with hematuria
[2020-03-19] MEDS: MUPIROCIN CA 2% TOPICAL CREAM 15 GM TUBE TP SCH ×2 (16:02→21:41)
--- NOTE | 2020-03-19 17:38 | PATH ---
Surgical Pathology Report Patient Name: RADHA CRENSHAW [facility]. Rec. #: [id number] /Age/Gender: 1965 (Age: 54) / F Account: [id number] Location: 4 W TELEMETRY U Taken: 03/18/2020 Received: 03/18/2020 Reported: 03/19/2020 Physicians: Jaime Cota M.D. Specimen(s) Received A: DUODENAL BULB ERYTHEMA B: ANTRUM Clinical History Anemia Postoperative diagnosis: Gastritis, duodenitis Final Diagnosis A. DUODENAL BULB ERYTHEMA, BIOPSY: DUODENAL MUCOSA WITH NONSPECIFIC CHRONIC DUODENITIS AND KIMBERLY'S GLAND OVERGROWTH IN THE LAMINA PROPRIA. B. ANTRUM, BIOPSY: GASTRIC MUCOSA WITH CHRONIC GASTRITIS. IMMUNOSTAIN FOR H. PYLORI IS NEGATIVE. NEGATIVE FOR INTESTINAL METAPLASIA. Electronically Signed Miguelito Cabrera M.D. Gross Description A. Received in formalin, labeled "duodenal bulb biopsy" is a steiner, irregular portion of soft tissue measuring 0.4 cm. in greatest dimension. The specimen is submitted in toto in one cassette. B. Received in formalin, labeled "antrum biopsy" is a steiner, irregular portion of soft tissue measuring 0.3 cm. in greatest dimension. The specimen is submitted in toto in one cassette. DL/03/18/2020 saudi/03/18/2020
[2020-03-19] MEDS: MELATONIN 5 MG TABLETS PO SCH (21:41)
[2020-03-20 06:46] LABS: HEMATOCRIT 23.7 % (32.4-45.2); HEMOGLOBIN 7.7 GM/dL (10.7-15.3); MCHC 32.5 g/dl (32.0-36.0); MEAN CELL VOLUME 110.9 fl (80-96); MEAN PLT VOLUME 7.2 fl (7.5-11.1); PLATELET COUNT 225 K/MM3 (134-434); RBC 2.14 M/mm3 (3.60-5.2); RDW 19.2 % (11.6-15.6); WHITE BLOOD COUNT 12.7 K/mm3 (4.0-10.0)
[2020-03-20 07:22] LABS: ALBUMIN 1.8 g/dl (3.4-5.0); BLOOD UREA NITROGEN 31.1 mg/dL (7-18); CALCIUM 8.6 mg/dL (8.5-10.1); POTASSIUM 3.9 mmol/L (3.5-5.1)
[2020-03-20 07:25] LABS: BILIRUBIN,TOTAL 0.6 mg/dL (0.2-1); CREATININE 5.3 mg/dL (0.55-1.3); TOT PROT 5.4 g/dl (6.4-8.2)
[2020-03-20] MEDS ORDERED: PT OWN MED DRAWER 7, Y5N ONE ×4 (07:44→16:41)
[2020-03-20] MEDS: AMINO ACIDS/PROTEIN HYDROLYS 30 ML LIQUID.PKT PO SCH ×3 (07:44→16:42)
[2020-03-20] MEDS: SEVELAMER CARBONATE 0.8 GM POWDER PACKET PO SCH ×3 (07:44→16:42)
[2020-03-20] MEDS: HEPARIN NA (PORCINE) 5,000 UNITS/ML 1ML VIAL SQ SCH ×3 (10:10→21:00)
[2020-03-20] MEDS: GABAPENTIN 300 MG CAPSULE PO SCH (10:11)
[2020-03-20] MEDS: PANTOPRAZOLE 40 MG TABLET PO SCH ×2 (10:11→21:00)
[2020-03-20] MEDS: LIDOCAINE 2.5%/PRILOCAINE 2.5% 30 GRAM TUBE TP SCH (10:11)
[2020-03-20] MEDS: HYDROCORTISONE 2.5% TOPICAL CREAM 30 GM TUBE PR SCH (10:12)
[2020-03-20] MEDS: POLYETHYLENE GLYCOL 3350 119 GM BTL PO SCH (10:12)
[2020-03-20] MEDS: FAMOTIDINE 10 MG TABLET PO SCH (10:12)
[2020-03-20] MEDS: MUPIROCIN CA 2% TOPICAL CREAM 15 GM TUBE TP SCH ×2 (10:13→21:01)
--- NOTE | 2020-03-20 10:20 | PN ---
Progress Note (short form) - Note Progress Note: RENAL pt is awake and alert comfortable no complaints able to get up from bed and take some steps with assistance Last Vital Signs Temp Pulse Resp BP Pulse Ox 98.2 F 98 H 20 107/55 L 90 L 03/20/20 06:00 03/20/20 06:00 03/20/20 06:00 03/20/20 06:00 03/20/20 06:00 lungs clear cvs s1s2 rr abd soft ext no edema neuro a+ox3 skin lesions noted CBC, BMP 03/20/20 06:15 03/20/20 06:15 Current Medications Generic Name Dose Route Start Last Admin Trade Name Freq PRN Reason Stop Dose Admin Acetaminophen 650 mg 03/15/20 03:04 03/17/20 21:29 Tylenol - PO 650 mg Q6H PRN Administration PAIN LEVEL 6-10 Amino Acids 30 ml 03/16/20 17:30 03/20/20 08:02 Prosource No Carb Liquid Pkt PO Not Given BID@0800,1730 KALIA [place] Butter/Phenylephrine 1 each 03/14/20 21:11 03/17/20 09:08 Preparation H Suppository RC 1 each Q6H PRN Administration HEMORRHOIDS Diphenhydramine HCl 25 mg 03/15/20 04:44 Benadryl - PO DAILY PRN FOR ITCHING Epoetin Juan-epbx 4,000 unit 03/19/20 10:13 Retacrit SQ 03/19/20 10:14 ONCE ONE Famotidine 10 mg 03/15/20 10:00 03/20/20 10:12 Acid Content Editor PO 10 mg DAILY KALIA Administration Gabapentin 300 mg 03/16/20 10:00 03/20/20 10:11 Neurontin - PO 300 mg DAILY KALIA Administration Heparin Sodium (Porcine) 5,000 unit 03/15/20 10:00 03/20/20 10:17 Heparin - SQ 5,000 unit BID KALIA Administration Hydrocortisone 1 applic 03/15/20 10:00 03/20/20 10:12 Anusol 2.5% Hc Cream - [place] 1 applic DAILY KALIA Administration Sodium Chloride 250 mls @ 3,000 mls/hr 03/19/20 10:13 Normal Saline - IV 03/20/20 10:13 PRN PRN Hypotension during Dialysis Lidocaine/Prilocaine 1 applic 03/15/20 16:00 03/20/20 10:11 Lidocaine-Prilocaine Cream TP 1 applic DAILY KALIA Administration Melatonin 5 mg 03/15/20 22:00 03/19/20 21:41 Melatonin PO 5 mg HS KALIA Administration Mupirocin 1 applic 03/19/20 12:45 03/20/20 10:13 Bactroban 2% Cream - TP 1 applic BID KALIA Administration Pantoprazole Sodium 40 mg 03/17/20 22:00 03/20/20 10:11 Protonix - PO 40 mg BID KALIA Administration Polyethylene Glycol 17 gm 03/15/20 17:45 03/20/20 10:12 Miralax (For Daily Use) - PO Not Given DAILY KALIA Senna 2 tab 03/15/20 17:33 Senna - PO HS PRN CONSTIPATION Sevelamer Carbonate 0.8 gm 03/15/20 08:00 03/20/20 07:44 Renvela Powder Packet - PO 0.8 gm TIDCM KALIA Administration IMPRESSION esrd uti pemphigus vulgaris melena s/p egd today which did not reveal any significant abnormalities PLAN continue antibiotics- emily with hd per ID will dialyze today will give [place] phos is controlled can be discharged after HD or tomorrow. Says she will be picked up by children who work [facility]
--- NOTE | 2020-03-20 10:47 | PN ---
Progress Note, Physician History of Present Illness: Pt seen/ examined chart reviewed awake/ comfortable walks few steps with walker denies pain afebrile - Current Medication List Current Medications: Active Medications Acetaminophen (Tylenol -) 650 mg PO Q6H PRN PRN Reason: PAIN LEVEL 6-10 Last Admin: 03/17/20 21:29 Dose: 650 mg Documented by: Amino Acids (Prosource No Carb Liquid Pkt) 30 ml PO BID@0800,1730 [facility] Last Admin: 03/20/20 08:02 Dose: Not Given Documented by: [place] Butter/Phenylephrine (Preparation H Suppository) 1 each RC Q6H PRN PRN Reason: HEMORRHOIDS Last Admin: 03/17/20 09:08 Dose: 1 each Documented by: Diphenhydramine HCl (Benadryl -) 25 mg PO DAILY PRN PRN Reason: FOR ITCHING Epoetin Juan-epbx (Retacrit) 4,000 unit SQ ONCE ONE Stop: 03/19/20 10:14 Famotidine (Acid Senior Grants Officer) 10 mg PO DAILY [facility] Last Admin: 03/20/20 10:12 Dose: 10 mg Documented by: Gabapentin (Neurontin -) 300 mg PO DAILY [facility] Last Admin: 03/20/20 10:11 Dose: 300 mg Documented by: Heparin Sodium (Porcine) (Heparin -) 5,000 unit SQ BID [facility] Last Admin: 03/20/20 10:17 Dose: 5,000 unit Documented by: Hydrocortisone (Anusol 2.5% Hc Cream -) 1 applic [place] DAILY [facility] Last Admin: 03/20/20 10:12 Dose: 1 applic Documented by: Sodium Chloride (Normal Saline -) 250 mls @ 3,000 mls/hr IV PRN PRN PRN Reason: Hypotension during Dialysis Stop: 03/20/20 10:13 Lidocaine/Prilocaine (Lidocaine-Prilocaine Cream) 1 applic TP DAILY [facility] Last Admin: 03/20/20 10:11 Dose: 1 applic Documented by: Melatonin (Melatonin) 5 mg PO HS [facility] Last Admin: 03/19/20 21:41 Dose: 5 mg Documented by: Mupirocin (Bactroban 2% Cream -) 1 applic TP BID [facility] Last Admin: 03/20/20 10:13 Dose: 1 applic Documented by: Pantoprazole Sodium (Protonix -) 40 mg PO BID [facility] Last Admin: 03/20/20 10:11 Dose: 40 mg Documented by: Polyethylene Glycol (Miralax (For Daily Use) -) 17 gm PO DAILY [facility] Last Admin: 03/20/20 10:12 Dose: Not Given Documented by: Senna (Senna -) 2 tab PO HS PRN PRN Reason: CONSTIPATION Sevelamer Carbonate (Renvela Powder Packet -) 0.8 gm PO TIDCM [facility] Last Admin: 03/20/20 07:44 Dose: 0.8 gm Documented by: - Objective Vital Signs: Vital Signs Temperature 98.2 F 03/20/20 06:00 Pulse Rate 98 H 03/20/20 06:00 Respiratory Rate 20 03/20/20 06:00 Blood Pressure 107/55 L 03/20/20 06:00 O2 Sat by Pulse Oximetry (%) 90 L 03/20/20 06:00 Constitutional: Yes: No Distress, Calm Neck: Yes: Supple Cardiovascular: Yes: Regular Rate and Rhythm Respiratory: Yes: Diminished Gastrointestinal: Yes: Soft Edema: No Neurological: Yes: Alert Psychiatric: Yes: Alert Labs: CBC, BMP 03/20/20 06:15 03/20/20 06:15 INR, PTT INR 0.93 (0.83-1.09) 03/14/20 16:30 Problem List - Problems (1) Anorectal pain Code(s): K62.89 - OTHER SPECIFIED DISEASES OF ANUS AND RECTUM (2) Decubitus ulcer Code(s): L89.90 - PRESSURE ULCER OF UNSPECIFIED SITE, UNSPECIFIED STAGE Qualifiers: Pressure injury location: sacral region Pressure injury stage: stage 2 Qualified Code(s): L89.152 - Pressure ulcer of sacral region, stage 2 (3) Diabetes mellitus Code(s): E11.9 - TYPE 2 DIABETES MELLITUS WITHOUT COMPLICATIONS (4) ESRD (end stage renal disease) on dialysis Code(s): N18.6 - END STAGE RENAL DISEASE; Z99.2 - DEPENDENCE ON RENAL DIALYSIS (5) Encounter for screening laboratory testing for COVID-19 virus Code(s): Z11.59 - ENCOUNTER FOR SCREENING FOR OTHER VIRAL DISEASES (6) HLD (hyperlipidemia) Code(s): E78.5 - HYPERLIPIDEMIA, UNSPECIFIED (7) Hemorrhoid Code(s): K64.9 - UNSPECIFIED HEMORRHOIDS (8) Hypotension Code(s): I95.9 - HYPOTENSION, UNSPECIFIED Qualifiers: Hypotension type: unspecified hypotension type Qualified Code(s): I95.9 - Hypotension, unspecified (9) Pemphigus vulgaris Code(s): L10.0 - PEMPHIGUS VULGARIS (10) UTI (urinary tract infection) Code(s): N39.0 - URINARY TRACT INFECTION, SITE NOT SPECIFIED Qualifiers: Urinary tract infection type: acute cystitis Hematuria presence: with hematuria Qualified Code(s): N30.01 - Acute cystitis with hematuria Assessment/Plan Clinically stable continue present care I also discussed with casework supervisor today medically stable for d/c Plan for d/c tomorrow after HD d/c tele Will follow
[2020-03-20] MEDS ORDERED: SODIUM CHLORIDE 250 ML IV PRN (12:07)
[2020-03-20] MEDS ORDERED: EPOETIN ALFA-EPBX 4,000 UNIT/ML VIAL SQ ONE (12:15)
--- NOTE | 2020-03-20 15:31 | PN ---
Progress Note, Physician Chief Complaint: REPORTS NO DYSURIA AWAKE, ALERT NO ACUTE DISTRESS AFEBRILE BC (-) URINE C/S SCN - Current Medication List Current Medications: Active Medications Acetaminophen (Tylenol -) 650 mg PO Q6H PRN PRN Reason: PAIN LEVEL 6-10 Last Admin: 03/17/20 21:29 Dose: 650 mg Documented by: Amino Acids (Prosource No Carb Liquid Pkt) 30 ml PO BID@0800,1730 [facility] Last Admin: 03/20/20 08:02 Dose: Not Given Documented by: [place] Butter/Phenylephrine (Preparation H Suppository) 1 each RC Q6H PRN PRN Reason: HEMORRHOIDS Last Admin: 03/17/20 09:08 Dose: 1 each Documented by: Diphenhydramine HCl (Benadryl -) 25 mg PO DAILY PRN PRN Reason: FOR ITCHING Famotidine (Acid Computer Customer Support Specialist) 10 mg PO DAILY [facility] Last Admin: 03/20/20 10:12 Dose: 10 mg Documented by: Gabapentin (Neurontin -) 300 mg PO DAILY [facility] Last Admin: 03/20/20 10:11 Dose: 300 mg Documented by: Heparin Sodium (Porcine) (Heparin -) 5,000 unit SQ BID [facility] Last Admin: 03/20/20 10:17 Dose: 5,000 unit Documented by: Hydrocortisone (Anusol 2.5% Hc Cream -) 1 applic [place] DAILY [facility] Last Admin: 03/20/20 10:12 Dose: 1 applic Documented by: Lidocaine/Prilocaine (Lidocaine-Prilocaine Cream) 1 applic TP DAILY [facility] Last Admin: 03/20/20 10:11 Dose: 1 applic Documented by: Melatonin (Melatonin) 5 mg PO HS [facility] Last Admin: 03/19/20 21:41 Dose: 5 mg Documented by: Mupirocin (Bactroban 2% Cream -) 1 applic TP BID [facility] Last Admin: 03/20/20 10:13 Dose: 1 applic Documented by: Pantoprazole Sodium (Protonix -) 40 mg PO BID [facility] Last Admin: 03/20/20 10:11 Dose: 40 mg Documented by: Polyethylene Glycol (Miralax (For Daily Use) -) 17 gm PO DAILY [facility] Last Admin: 03/20/20 10:12 Dose: Not Given Documented by: Senna (Senna -) 2 tab PO HS PRN PRN Reason: CONSTIPATION Sevelamer Carbonate (Renvela Powder Packet -) 0.8 gm PO TIDCM [facility] Last Admin: 03/20/20 12:30 Dose: 0.8 gm Documented by: - Objective Vital Signs: Vital Signs Temperature 97.8 F 03/20/20 14:00 Pulse Rate 102 H 03/20/20 14:20 Respiratory Rate 18 03/20/20 14:20 Blood Pressure 120/54 L 03/20/20 14:20 O2 Sat by Pulse Oximetry (%) 94 L 03/20/20 10:00 Constitutional: Yes: No Distress, Obese Eyes: Yes: Conjunctiva Clear Cardiovascular: Yes: Regular Rate and Rhythm, S1, S2 Respiratory: Yes: CTA Bilaterally Gastrointestinal: Yes: Normal Bowel Sounds, Soft. No: Tenderness Edema: Yes Labs: CBC, BMP 03/20/20 06:15 03/20/20 06:15 INR, PTT INR 0.93 (0.83-1.09) 03/14/20 16:30 Assessment/Plan S/P HYPOTENSION UTI R/O SEPSIS SECONDARY TO UTI ESRD PEMPHIGUS ON PREDNISONE CHECK RANDOM VANCO LEVEL AT HD AND REDOSE FOR LEVEL < 15, THEN OBSERVE OFF
[2020-03-20] MEDS ORDERED: clonazePAM 0.5 MG TABLET PO ONE (20:34)
[2020-03-20] MEDS: MELATONIN 5 MG TABLETS PO SCH (21:00)
[2020-03-20 21:06] VITALS: BMI 34.3
[2020-03-21 06:02] VITALS: TEMP 98.2
[2020-03-21] MEDS ORDERED: PT OWN MED DRAWER 7, Y5N ONE (09:12)
[2020-03-21] MEDS: AMINO ACIDS/PROTEIN HYDROLYS 30 ML LIQUID.PKT PO SCH (09:15)
[2020-03-21] MEDS: SEVELAMER CARBONATE 0.8 GM POWDER PACKET PO SCH ×2 (09:16→11:40)
[2020-03-21] MEDS: PANTOPRAZOLE 40 MG TABLET PO SCH (09:17)
[2020-03-21] MEDS: GABAPENTIN 300 MG CAPSULE PO SCH (09:17)
[2020-03-21] MEDS: FAMOTIDINE 10 MG TABLET PO SCH (09:17)
[2020-03-21] MEDS: HYDROCORTISONE 2.5% TOPICAL CREAM 30 GM TUBE PR SCH (09:18)
[2020-03-21] MEDS: POLYETHYLENE GLYCOL 3350 119 GM BTL PO SCH (09:19)
[2020-03-21] MEDS: LIDOCAINE 2.5%/PRILOCAINE 2.5% 30 GRAM TUBE TP SCH (09:19)
[2020-03-21] MEDS: HEPARIN NA (PORCINE) 5,000 UNITS/ML 1ML VIAL SQ SCH (09:20)
--- NOTE | 2020-03-21 09:51 | DS ---
Physical Examination Vital Signs: Vital Signs Temperature 98.2 F 03/21/20 06:00 Pulse Rate 104 H 03/21/20 06:00 Respiratory Rate 20 03/21/20 06:00 Blood Pressure 104/54 L 03/21/20 06:00 O2 Sat by Pulse Oximetry (%) 92 L 03/21/20 06:00 Findings/Remarks: Feels well no complains excited -- going home today afebrile denies pain Constitutional: Yes: No Distress, Calm Neck: Yes: Supple Cardiovascular: Yes: Regular Rate and Rhythm Respiratory: Yes: CTA Bilaterally Gastrointestinal: Yes: Soft Edema: No Neurological: Yes: Alert Psychiatric: Yes: Alert Labs: CBC, BMP 03/20/20 06:15 03/20/20 06:15 Discharge Summary Problems reviewed: Yes Reason For Visit: URINARY TRACT INFECTION MACROCYTIC ANEMIA SEPSIS Current Active Problems Anorectal pain (Acute) Decubitus ulcer (Acute) Diabetes mellitus (Acute) ESRD (end stage renal disease) on dialysis (Acute) Encounter for screening laboratory testing for COVID-19 virus (Acute) HLD (hyperlipidemia) (Acute) Hemorrhoid (Acute) Hypotension (Acute) Pemphigus vulgaris (Acute) Sepsis (Acute) UTI (urinary tract infection) (Acute) Hospital Course: This is a 54 y/o female from [facility] with a PMHx of ESRD (,,), HLD, DM, Lymphoma, Pemphigus Vulgaris. Who presented to the ED via ambulance from the dialysis center for hypotension. Patient reports having fever and chills. She reports having rectal pain from a hemorrhoid. Patient denies SOB, dizziness, ISABEL, CP, palpitations, AP, N/V/D. Admitted to hospital Pt found to have uti treated with abx-- vanco and genta. Blood cultures -ve pt improved and doing well pt wants to go home and arrangements have been made Family picking her later today meds reconcilled Pt advised to f/u with her pmd this week. Dialysis as per renal. Condition: Stable - Instructions Referrals: Paul Mayen MD [Primary Care Provider] - Disposition: HOME - Home Medications Comprehensive Discharge Medication List: Ambulatory Orders Acetaminophen [Tylenol] 650 mg PO QID 03/14/20 Lidocaine 2% Viscous Oral [Xylocaine 2% Viscous Oral -] 20 ml PO Q4H 03/14/20 Silver Sulfadiazine 1% Top Cr [Silvadene -] 1 applic TP BID 03/14/20 Amino Acids/Protein Hydrolys [Prosource No Carb Liquid Pkt] 30 ml PO BID@0800,1730 #60 packet 03/19/20 Diphenhydramine HCl 25 mg PO DAILY #30 cap 03/19/20 Ergocalciferol (Vitamin D2) [Drisdol] 1,250 mcg PO WEEKLY #4 cap 03/19/20 Ferric Citrate [Auryxia] 210 mg PO TID #30 tablet 03/19/20 Gabapentin [Neurontin] 300 mg PO DAILY #30 cap 03/19/20 Insulin Glargine,Hum.rec.anlog [Lantus Solostar] 10 unit SQ HS #7 unit 03/19/20 Lidocaine/Prilocaine [Lidocaine-Prilocaine Cream] 1 applic TP DAILY #1 applic 03/19/20 Melatonin 5 mg PO HS #30 tab 03/19/20 Mupirocin Cream [Bactroban 2% Cream -] 1 applic TP BID #1 tube 03/19/20 Pantoprazole Sodium [Protonix -] 40 mg PO BID #60 tablet.ec 03/19/20 Pen Needle, Diabetic [Carefine Pen Needle] 1 each MC BID #60 dis.needle 03/19/20 Phenylephrine HCl/[place] Butter [Preparation H Suppository] 1 each RC Q6H PRN #7 supp.rect 03/19/20 Sevelamer Carbonate [Renvela Powder Packet -] 0.8 gm PO TID #60 packet 03/19/20 Hydrocortisone 2.5% Topical Cr [Anusol-Hc -] 1 applic [place] DAILY #1 tube 03/21/20
[2020-03-21 10:40] VITALS: BP 119/53; PULSE 96
[2020-03-21] MEDS: MUPIROCIN CA 2% TOPICAL CREAM 15 GM TUBE TP SCH (10:40)
--- NOTE | 2020-03-21 13:14 | PN ---
Progress Note, Physician History of Present Illness: Pt seen and examined at bedside. She is awake and appears comfortable. She tolerated HD yesterday. - Objective Vital Signs: Vital Signs Temperature 98.2 F 03/21/20 10:00 Pulse Rate 96 H 03/21/20 10:00 Respiratory Rate 18 03/21/20 10:00 Blood Pressure 119/53 L 03/21/20 10:00 O2 Sat by Pulse Oximetry (%) 95 03/21/20 10:00 Constitutional: Yes: Calm Eyes: Yes: Conjunctiva Clear HENT: Yes: Atraumatic Neck: Yes: Supple Cardiovascular: Yes: S1, S2 Respiratory: Yes: CTA Bilaterally Gastrointestinal: Yes: Soft Genitourinary: Yes: WNL Edema: Yes Edema: LLE: 2+, RLE: 2+ Integumentary: Yes: Venous Stasis Changes Neurological: Yes: Oriented Psychiatric: Yes: Oriented Labs: CBC, BMP 03/20/20 06:15 03/20/20 06:15 INR, PTT INR 0.93 (0.83-1.09) 03/14/20 16:30 Assessment/Plan Impression esrd uti pemphigus vulgaris melena anemia Plan - pt last had HD yesterday - she had HD set up as outpt - renal diet - discussed fluid intake
== END 2020-03-21 12:45 | disposition home or self-care (01) | DRG 871 ==
LOC: JER 15:37 → JERBED 19:47 → J4W 23:31
PROVIDERS: ADMIT Internal Medicine; ATTEND Internal Medicine
PROC: 0DB68ZX Excision of Stomach, Via Natural or Artificial Opening Endoscopic, Diagnostic (ICD-10-PCS; 2020-03-18)
PROC: 0DB98ZX Excision of Duodenum, Via Natural or Artificial Opening Endoscopic, Diagnostic (ICD-10-PCS; principal; 2020-03-18 13:30)
PROC: 5A1D70Z Performance of Urinary Filtration, Intermittent, Less than 6 Hours Per Day (ICD-10-PCS; 2020-03-20)
DX: A41.9 Sepsis, unspecified organism (principal); N18.6 End stage renal disease; N30.01 Acute cystitis with hematuria; L10.0 Pemphigus vulgaris; Z99.2 Dependence on renal dialysis; E78.5 Hyperlipidemia, unspecified; E11.22 Type 2 diabetes mellitus with diabetic chronic kidney disease; L89.152 Pressure ulcer of sacral region, stage 2; K64.9 Unspecified hemorrhoids; K29.50 Unspecified chronic gastritis without bleeding; I95.3 Hypotension of hemodialysis; D64.9 Anemia, unspecified; E66.9 Obesity, unspecified; Z68.34 Body mass index [BMI] 34.0-34.9, adult; K29.80 Duodenitis without bleeding
CPT/HCPCS: 36415; 71045-TC-FY; 80048; 80053; 80170; 81003; 82272; 82530; 82607; 82728; 83540; 83550; 83605; 83735; 84100; 84484; 85025; 85027; 85610; 85730; 86803; 87040; 87086; 87186; 87340; 88305-TC; 93005; 93010; 97116-GP; 97161-GP; 99285-25; G0480; J0131; J1644; Q5106; U0003